=== PATIENT | female | born 1975 | race Caucasian/White ===

== ENCOUNTER 2022-11-07 08:30 | Outpatient (OUT) | payer OTHER, SELFPAY ==
[2022-11-07 09:17] LABS: Basophils Absolute Auto 0.1 10^3/uL (0.0-0.1); Basophils Percent Auto 0.8 % (0.2-2.0); Eosinophils Absolute Auto 0.1 10^3/uL (0.0-0.7); Eosinophils Percent Auto 0.9 % (0.9-7.0); Hematocrit 35.6 % (36.0-48.0); Hemoglobin 11.7 g/dL (12.0-16.0); Immature Granulocytes Abs Auto 0.02 10^3/uL (0.00-0.03); Immature Granulocytes Pct Auto 0.3 % (0.0-0.5); Lymphocytes Absolute Auto 1.9 10^3/uL (1.2-3.8); Lymphocytes Percent Auto 27.8 % (20.5-60.0); Mean Corpuscular HGB Conc 32.9 g/dL (29.9-35.2); Mean Corpuscular Hemoglobin 29.6 pg (26.7-34.0); Mean Corpuscular Volume 90.1 fL (81.0-99.0); Mean Platelet Volume 11.2 fL (9.5-13.5); Monocytes Absolute Auto 0.4 10^3/uL (0.3-0.8); Monocytes Percent Auto 6.2 % (1.7-12.0); Neutrophils Absolute Auto 4.3 10^3/uL (1.4-6.5); Platelet Count 326 10^3/uL (150-450); Red Blood Count 3.95 10^6/uL (4.20-5.40); Red Cell Distribution Width 13.1 % (11.0-15.0); White Blood Count 6.7 10^3/uL (4.0-11.0)
[2022-11-07 10:57] LABS: Alanine Aminotransferase 72 U/L (14-59); Albumin Globulin Ratio 0.9; Albumin Level 3.5 g/dL (3.4-5.0); Alkaline Phosphatase 92 U/L (46-116); Anion Gap 12.5; Aspartate Amino Transferase 44 U/L (15-37); BUN Creatinine Ratio 22.9; Bilirubin Total 0.3 mg/dL (0.2-1.0); Calcium 9.2 mg/dL (8.5-10.1); Carbon Dioxide 30.4 mmol/L (21.0-32.0); Chloride 99 mmol/L (98-107); Estimated GFR (African America >60 (>=60); Estimated GFR (Non-African Ame >60 (>=60); Globulin 4.1 g/dL; Glucose 93 mg/dL (74-106); Magnesium 1.9 mg/dL (1.8-2.4); Phosphorus 3.9 mg/dL (2.6-4.7); Potassium 3.9 mmol/L (3.5-5.1); Sodium 138 mmol/L (136-145); Total Protein 7.6 g/dL (6.4-8.2)
[2022-11-07 11:04] LABS: Percent Iron Saturation 14.3 %
[2022-11-11 20:11] LABS: Vitamin B1 (Thiamine), Blood 84.9 nmol/L (66.5-200.0)
== END 2022-11-07 08:31 ==
LOC: LAB 08:31
DX: Z98.84 Bariatric surgery status (principal); K90.9 Intestinal malabsorption, unspecified; R53.83 Other fatigue; D50.9 Iron deficiency anemia, unspecified
CPT/HCPCS: 36415; 80053; 82306; 82607; 82728; 82746; 83540; 83550; 83735; 84100; 84425; 85025

== ENCOUNTER 2022-12-11 15:49 | Outpatient (OUT) | payer OTHER, SELFPAY ==
--- NOTE | 2022-12-11 15:53 | MM_ITS ---
Patient: JASMIN CALVILLO Exam Date: 12/11/2022 : 1975 Gender:F Ordering : MRS. FRANTZ PANDA . Admission #: [id number] Family : Order #: [id number] CLICK HERE TO VIEW EXAM RADIOLOGY REPORT PROCEDURE: MM TOMOSYNTHESIS SCREENING BI COMPARISON: MG MAMM SCREEN 3D SRINATH CAD, 12/03/2021. MG MAMM SCREEN 3D SRINATH CAD, 11/20/2020. MG MAMM SRINATH DIAG FU, 11/18/2019. MG MAMM SRINATH SCRN W CAD DIG, 06/12/2015. INDICATIONS: Screening mammogram Z12.31 Calculator Name NCI Breast Cancer Risk Assessment Tool 5 Year Breast Cancer Risk 0.80% Lifetime Breast Cancer Risk 8.30% Personal Breast Cancer No Personal Ovarian Cancer No Treatments None Family Cancers Father with prostate cancer at age 51; Grandfather-maternal with colon cancer at age 68. LOCATION: [facility] BREAST COMPOSITION: Scattered areas fibroglandular density. FINDINGS: DIAGNOSTIC CATEGORY 1--NEGATIVE. RIGHT BREAST: No significant suspicious finding. No significant change has occurred. LEFT BREAST: No significant suspicious finding. No significant change has occurred. RECOMMENDATIONS: ROUTINE MAMMOGRAM AND CLINICAL EVALUATION IN 12 MONTHS. PLEASE NOTE: A NORMAL MAMMOGRAM DOES NOT EXCLUDE THE POSSIBILITY OF BREAST CANCER. A CLINICALLY SUSPICIOUS PALPABLE LUMP SHOULD BE BIOPSIED. Dictated by: Shay Cedeño M.D. on 12/12/2022 at 14:46 Approved by: Shay Cedeño M.D. on 12/12/2022 at 14:49
== END 2022-12-11 15:50 | disposition home or self-care (01) ==
LOC: MAMMO 15:49
PROVIDERS: PCP Nurse Practitioner; Visit Provider Nurse Practitioner
DX: Z12.31 Encounter for screening mammogram for malignant neoplasm of breast (principal); Z80.0 Family history of malignant neoplasm of digestive organs; Z80.8 Family history of malignant neoplasm of other organs or systems
CPT/HCPCS: 77063; 77067

== ENCOUNTER 2023-03-06 08:27 | Outpatient (OUT) | payer OTHER, SELFPAY ==
[2023-03-06 10:18] LABS: Basophils Absolute Auto 0.1 10^3/uL (0.0-0.1); Eosinophils Absolute Auto 0.2 10^3/uL (0.0-0.7); Eosinophils Percent Auto 2.5 % (0.9-7.0); Hematocrit 36.3 % (36.0-48.0); Hemoglobin 12.1 g/dL (12.0-16.0); Immature Granulocytes Abs Auto 0.01 10^3/uL (0.00-0.03); Immature Granulocytes Pct Auto 0.2 % (0.0-0.5); Lymphocytes Percent Auto 33.6 % (20.5-60.0); Mean Corpuscular HGB Conc 33.3 g/dL (29.9-35.2); Mean Corpuscular Hemoglobin 30.9 pg (26.7-34.0); Mean Corpuscular Volume 92.6 fL (81.0-99.0); Mean Platelet Volume 11.8 fL (9.5-13.5); Monocytes Absolute Auto 0.5 10^3/uL (0.3-0.8); Monocytes Percent Auto 8.4 % (1.7-12.0); Neutrophils Absolute Auto 3.2 10^3/uL (1.4-6.5); Neutrophils Percent Auto 54.3 % (43.0-75.0); Platelet Count 259 10^3/uL (150-450); Red Blood Count 3.92 10^6/uL (4.20-5.40); Red Cell Distribution Width 12.3 % (11.0-15.0)
[2023-03-06 10:51] LABS: Percent Iron Saturation 15.7 %
== END 2023-03-06 08:28 | disposition home or self-care (01) ==
PROVIDERS: PCP Nurse Practitioner
DX: Z98.84 Bariatric surgery status (principal); K90.9 Intestinal malabsorption, unspecified; D50.9 Iron deficiency anemia, unspecified; D64.9 Anemia, unspecified; R60.9 Edema, unspecified; M19.90 Unspecified osteoarthritis, unspecified site
CPT/HCPCS: 36415; 82728; 83540; 83550; 85025

== ENCOUNTER 2023-05-18 07:57 | Outpatient (OUT) | payer OTHER, SELFPAY ==
--- NOTE | 2023-05-18 | XR_ITS ---
The [address] [address] Patient Name: JASMIN CALVILLO MRN: [id number] date: 1975 Sex: F Assigned Patient Location: US Current Patient Location: US Accession/Order Number: [id number] Exam Date: 05/18/2023 08:20 Report Date: 05/18/2023 09:17 At the request of: MARCELINO STEVENS Procedure: XR abdomen 1V EXAM: XR abdomen 1V HISTORY: N20.0 Kidney stones COMPARISON: None. TECHNIQUE: AP view of the abdomen. FINDINGS: Nonobstructive bowel gas pattern is noted. There is a 5 mm calculus in the inferior pole of the right kidney. 1.0 cm calculus in the inferior pole of the left kidney. The osseous structures are intact. Multiple surgical clips presents over the left renal region. XR/XR abdomen 1V IMPRESSION: Nonobstructive bowel gas pattern. Bilateral nephrolithiasis. Electronically authenticated by: ANN-MARIE TUCKER Date: 05/18/2023 09:17
--- NOTE | 2023-05-18 | US_ITS ---
The [address] [address] Patient Name: JASMIN CALVILLO MRN: [id number] date: 1975 Sex: F Assigned Patient Location: Current Patient Location: US Accession/Order Number: [id number] Exam Date: 05/18/2023 08:03 Report Date: 05/18/2023 08:43 At the request of: MARCELINO STEVENS Procedure: US renal BI EXAM: Renal ultrasound HISTORY: . n20.0 kidney stones . COMPARISON: None. TECHNIQUE: Grayscale and color imaging was performed FINDINGS: Scanning of the right kidney demonstrates right kidney measured 10.3 x 5.6 x 5.6 cm. Color-flow is noted. No solid renal cortical masses or hydronephrosis is noted. There is a 7 mm nonobstructing calculus in the mid to lower pole of the right kidney. Left kidney measures 10 x 5.2 x 4.6 cm. Color-flow is noted. No solid renal cortical masses or hydronephrosis is noted. There is a 1.4 cm calculus in the left renal pelvis. No hydronephrosis is noted. Scanning of the bladder demonstrates the bladder to be incompletely distended with a volume of 33 cc. Grossly no masses are noted though evaluation is limited. US/US renal BI IMPRESSION: 1. 7 mm nonobstructing calculus involving the inferior pole of the right kidney. No hydronephrosis. 2. 1.4 cm calculus involving the renal pelvis of the left kidney. No hydronephrosis. 3. The bladder was incompletely distended this evaluation of the bladder was limited. Grossly no masses noted. Electronically authenticated by: THOMAS HARRIS Date: 05/18/2023 08:43
== END 2023-05-18 07:58 | disposition home or self-care (01) ==
LOC: US 07:57
PROVIDERS: PCP Nurse Practitioner; Visit Provider Urology
DX: N20.0 Calculus of kidney (principal)
CPT/HCPCS: 74018; 76775

== ENCOUNTER 2023-05-21 09:56 | Outpatient (OUT) | payer OTHER, SELFPAY ==
[2023-05-21 10:13] LABS: Basophils Absolute Auto 0.1 10^3/uL (0.0-0.1); Basophils Percent Auto 0.7 % (0.2-2.0); Eosinophils Absolute Auto 0.1 10^3/uL (0.0-0.7); Eosinophils Percent Auto 1.4 % (0.9-7.0); Hematocrit 38.7 % (36.0-48.0); Hemoglobin 12.6 g/dL (12.0-16.0); Immature Granulocytes Abs Auto 0.01 10^3/uL (0.00-0.03); Immature Granulocytes Pct Auto 0.1 % (0.0-0.5); Lymphocytes Absolute Auto 1.9 10^3/uL (1.2-3.8); Lymphocytes Percent Auto 23.2 % (20.5-60.0); Mean Corpuscular HGB Conc 32.6 g/dL (29.9-35.2); Mean Corpuscular Hemoglobin 30.4 pg (26.7-34.0); Mean Corpuscular Volume 93.5 fL (81.0-99.0); Mean Platelet Volume 10.9 fL (9.5-13.5); Monocytes Absolute Auto 0.4 10^3/uL (0.3-0.8); Neutrophils Absolute Auto 5.6 10^3/uL (1.4-6.5); Neutrophils Percent Auto 69.6 % (43.0-75.0); Platelet Count 282 10^3/uL (150-450); Red Blood Count 4.14 10^6/uL (4.20-5.40); Red Cell Distribution Width 12.1 % (11.0-15.0)
--- OUTSIDE RECORDS SUMMARY | 2023-05-21 10:39 | XMS_ITS | CCD ---
Author Name Unknown Address [address] [place] [address] Organization [facility] Care Team Providers Care Fuel Retrofitting Technician Name Role Phone LUDY LAINEZ Primary Care Physician ERICK KRAFT Consulting Unavailable LAINEZ ., DR LUDY French Primary Care Unavailable LUE ., ROMI M Attending Unavailable LUE ., ROMI M Admitting Unavailable LUE ., ROMI M Consulting Unavailable LUE ., ROMI M Consulting Unavailable LAINEZ ., DR LUDY French Primary Care Unavailable LUE ., ROMI M Attending Unavailable LUE ., ROMI M Admitting Unavailable MAIRA SCRUGGS Consulting Unavailable PETER II, SARAY Consulting Unavailable MISC, DR HDEZ Consulting Unavailable LAINEZ ., DR LUDY French Primary Care Unavailable MISC, DR HDEZ Attending Unavailable MISC, DR HDEZ Admitting Unavailable ZIEBTARUN, DR ETTA Hopkins Consulting Unavailable LAINEZ ., DR LUDY French Primary Care Unavailable LUE ., ROMI M Attending Unavailable LUE ., ROMI M Admitting Unavailable LUE ., ROMI M Consulting Unavailable YESSI, DR ETTA Hopkins Consulting Unavailable LAINEZ ., DR LUDY French Primary Care Unavailable LUE ., ROMI M Attending Unavailable LUE ., ROMI M Admitting Unavailable LUE ., ROMI M Consulting Unavailable ZIEBER, DR ETTA Hopkins Consulting Unavailable LAINEZ ., DR LUDY French Primary Care Unavailable LUE ., ROMI M Attending Unavailable LUE ., ROMI M Admitting Unavailable LUE ., ROMI M Consulting Unavailable LUE ., ROMI M Consulting Unavailable LAINEZ ., DR LUDY French Primary Care Unavailable LUE ., ROMI M Attending Unavailable LUE ., ROMI M Admitting Unavailable MAISHA ESTRADA Consulting Unavailable LUE ., ROMI M Consulting Unavailable LAINEZ ., DR LUDY French Primary Care Unavailable LUE ., ROMI Patel Attending Unavailable LUE ., ROMI Patel Admitting Unavailable LAINEZ ., DR LUDY French Consulting Unavailable LAINEZ ., DR LUDY French Primary Care Unavailable LAINEZ ., DR LUDY French Attending Unavailable LAINEZ ., DR LUDY French Admitting Unavailable ZIEBER, DR ETTA Hopkins Consulting Unavailable BRITTANY, MARY Consulting Unavailable LAINEZ ., DR LUDY French Primary Care Unavailable BRITTANY, MARY Attending Unavailable BRITTANY, MARY Admitting Unavailable PAY ., DR PUENTE Consulting Unavailable PAY ., DR PUENTE Attending Unavailable PAY ., DR PUENTE Admitting Unavailable LAINEZ ., DR LUDY French Primary Care Unavailable MAXIMILIANO TAYLOR Consulting Unavailable MEGHA RESENDIZ Consulting Unavailable IVETT THOMPSON Consulting Unavailable Radha Leo Primary Care Physician Romi Sarmiento Attending Unavailable Romi Sarmiento Attending Unavailable Romi Sarmiento Attending Unavailable Romi Sarmiento Attending Unavailable Felipa, DISASSEMBLER Radha L Admitting Unavailable Felipa, DISASSEMBLER Radha Ocampo Attending Unavailable Romi Sarmiento Attending Unavailable Romi Sarmiento Attending Unavailable Romi Sarmiento Attending Unavailable Felipa, DISASSEMBLER Radha Ocampo Attending Unavailable Unavailable Unavailable Unavailable Allergies Allergy Classification Reported Allergen(s) Allergy Type Date of Onset Reaction(s) Facility (1 source) No Known Medication Allergies; Translations: [No Known Medication Allergies] Propensity to adverse reactions (disorder) [facility] Repository Medications Current Medications Medication Drug Class(es) Dates Sig (Normalized) Sig (Original) acetaminophen 325 mg / oxyCODONE hydrochloride 5 mg oral tablet (1 source) Opioid Agonist Start: 03-22-2022 Percocet 325 mg-5 mg Tab See Instructions, 50 tab(s), Refill(s) 0, 1- 2 tab(s) Oral q4hr PRN post operative knee replacement pain. Duration 7 days, [id number], 165, cm, 02/26/22 12:16:00 EDT, Height/Length Dosing, 85.1, kg, 02/26/22 12:16:00 EDT, Weight Dosing Start Date: 03/22/22 Status: Ordered aspirin 325 mg oral tablet (1 source) Platelet Aggregation Inhibitor, Nonsteroidal Anti-inflammatory Drug Start: 03-22-2022 End: 04-21-2022 take 1 tablet by mouth once daily aspirin 325 mg Tab 325 mg = 1 tab(s), Oral, Daily, Start the day after knee surgery for blood clot prevention., X 30 day(s), # 30 tab(s), Refills(s) 0, Pharmacy: [facility] #[id number], 165, cm, 02/26/22 12:16:00 EDT, Height/Length Dosing, 85.1, kg, 02/26/22 12:16:... Start Date: 03/22/22 Stop Date: 04/21/22 Status: Ordered Bariatric Multivitamins with 45 mg Iron oral capsule (5 sources) Start: 02-26-2022 take 1 capsule by mouth once daily Bariatric Multivitamins with 45 mg Iron oral capsule 1 cap(s), Oral, Daily, Prophylaxis Start Date: 02/26/22 Status: Ordered cephalexin 500 mg oral capsule (1 source) Cephalosporin Antibacterial Start: 03-22-2022 End: 03-27-2022 take 1 capsule by mouth four times daily Keflex 500 mg Cap 500 mg = 1 cap(s), Oral, QID, Start the day after knee replacement surgery., X 5 day(s), # 20 cap(s), Refills(s) 0, Pharmacy: [facility] #[id number], 165, cm, 02/26/22 12:16:00 EDT, Height/Length Dosing, 85.1, kg, 02/26/22 12:16:00 EDT, Weight Do... Start Date: 03/22/22 Stop Date: 03/27/22 Status: Ordered docusate sodium 100 mg oral capsule (1 source) Start: 03-22-2022 take 1 capsule by mouth twice daily Colace 100 mg Cap 100 mg = 1 cap(s), Oral, BID, # 20 cap(s), Refills(s) 0, Pharmacy: [facility] #[id number], 165, cm, 02/26/22 12:16:00 EDT, Height/Length Dosing, 85.1, kg, 02/26/22 12:16:00 EDT, Weight Dosing Start Date: 03/22/22 Status: Ordered promethazine hydrochloride 25 mg oral tablet (5 sources) Phenothiazine Start: 03-22-2022 take 1 tablet by mouth every four hours as needed for nausea promethazine 25 mg Tab 25 mg = 1 tab(s), Oral, q4hr, PRN for nausea/vomiting, Post knee surgery nausea/vomiting, # 20 tab(s), Refills(s) 0, Pharmacy: [facility] #[id number], 165, cm, 02/26/22 12:16:00 EDT, Height/Length Dosing, 85.1, kg, 02/26/22 12:16:00 EDT, Weight D... Start Date: 03/22/22 Status: Ordered tamsulosin hydrochloride 0.4 mg oral capsule (2 sources) alpha-Adrenergic Chaya Start: 06-13-2022 take 1 capsule by mouth once daily Flomax 0.4 mg Cap 0.4 mg = 1 cap(s), Oral, Daily, # 30 cap(s), Refills(s) 1, Pharmacy: [facility] #[id number], 165, cm, 06/13/22 9:38:00 EST, Height/Length Dosing, 73.5, kg, 06/13/22 9:38:00 EST, Weight Dosing Start Date: 06/13/22 Status: Ordered Completed/Discontinued Medications Medication Drug Class(es) Dates Sig (Normalized) Sig (Original) Calcium Citrate (5 sources) Start: 02-26-2022 take 2 tablets by mouth twice daily calcium citrate Tab 500 mg, Oral, BID, 2 tabs twice a day, Prophylaxis Start Date: 02/26/22 Status: Ordered Problems Active Problems Problem Classification Problem Date Documented Da te Episodic/Chronic Acquired foot deformities (5 sources) Foot-drop 02-26-2022 Episodic Calculus of urinary tract (20 sources) Kidney stone; Translations: [Calculus of kidney] Onset: 06-13-2022 Episodic Essential hypertension (5 sources) Hypertensive disorder; Translations: [Essential (primary) hypertension] Onset: 08-06-2022 06-13-2022 Chronic Genitourinary symptoms and ill-defined conditions (4 sources) Microscopic hematuria; Translations: [Asymptomatic microscopic hematuria] Onset: 06-13-2022 Episodic Osteoarthritis (15 sources) Osteoarthritis of knee; Translations: [Unilateral primary osteoarthritis, right knee] Onset: 01-13-2022 Chronic Other aftercare (1 source) 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; Translations: [OTH RESIDENTIAL CURRENT DRUG THERAPY] Onset: 08-06-2022 Episodic Other connective tissue disease (1 source) Presence of right artificial knee joint; Translations: [PRESENCE RT ARTIFICIAL KNEE JOINT] Onset: 08-06-2022 Chronic Other diseases of kidney and ureters (4 sources) Hydronephrosis with renal and ureteral calculous obstruction; Translations: [HYDRONPHROS RENL AND URETRL CALCUL OBST] Onset: 07-30-2022 Episodic Other diseases of kidney and ureters (1 source) Unspecified hydronephrosis; Translations: [UNSPECIFIED HYDRONEPHROSIS] Onset: 07-02-2022 Episodic Other gastrointestinal disorders (5 sources) Intestinal malabsorption, unspecified; Translations: [INTESTINAL MALABSORPTION UNS] Onset: 01-14-2022 Chronic Other gastrointestinal disorders (1 source) Bariatric surgery status; Translations: [BARIATRIC SURGERY STATUS] Onset: 08-06-2022 Episodic Residual codes; unclassified (1 source) Other specified postprocedural states; Translations: [OTH SPECIFIED POSTPROCEDURAL STATES] Onset: 09-05-2022 Episodic Unclassified (4 sources) Asymptomatic microscopic hematuria 06-13-2022 Unclassified (1 source) Body mass index 20-24 - normal 10-24-2022 Unclassified (1 source) Non-smoker 10-24-2022 Past or Other Problems Problem Classification Problem Date Documented Da te Episodic/Chronic Abdominal pain (4 sources) Unspecified abdominal pain; Translations: [UNSPECIFIED ABDOMINAL PAIN] Onset: 05-27-2022 Episodic Other screening for suspected conditions (not mental disorders or infectious disease) (4 sources) Encounter for screening mammogram for malignant neoplasm of breast; Translations: [ENC SCR MAMMO MALIG NEOPLASM BREAST] Onset: 12-03-2021 Episodic Residual codes; unclassified (1 source) Edema, unspecified; Translations: [EDEMA UNSPECIFIED] Onset: 01-14-2022 Episodic Residual codes; unclassified (1 source) Family history of malignant neoplasm of digestive organs; Translations: [FAM HX MALIG NEOPLASM DIGESTIV ORGN] Onset: 12-06-2021 Episodic Residual codes; unclassified (1 source) Family history of malignant neoplasm of prostate; Translations: [FAMILY HX MALIG NEOPLASM PROSTATE] Onset: 12-06-2021 Episodic Results Test Name Value Interpretation Reference Range Facility Reminderson 05-19-2023 Reminders - From: Tanesha Rowley To: EU - Recalls Torsten; Sent: 12/03/2022 13:42:54 EDT Show up: 05/01/2023 13:42:00 EST Subject: OSCAR/KUB Reminder/Recall To be done @ [facility] prior to her 06/10/[address] Sarmiento Called pt Left VM to return our call about imaging. Pt called and she will be calling [facility] to schedule OSCAR and have KUB done on same day Called pt and left VM to see when she is scheduled for OSCAR/KUB Pt called and she is having OSCAR & KUB done @ [facility] on 05/18/2023 OSCAR in pt chart for upcoming appointment. [facility] RAD - Ultrasound Reporton RAD - Ultrasound Report [id number] F [facility] Outside Mammographyon 2022 Outside Mammography [id number]: 127 [facility] Outside Mammography [id number]: 127 [facility] Screenson 12-04-2022 Screens [id number] :127 [facility] Ambulatory Visit Summaryon 0 12-03-2022 Ambulatory Visit Summary JASMIN CALVILLO :1975 Visit Date:12/03/2022 Ambulatory Visit Instructions Your Diagnosis Ureteral stone Kidney stones Asymptomatic microscopic hematuria Tests Performed Urnls Dip Stick Auto w/o Microscopy POC 36498 US Renal -- Results Pending -- XR Abdomen 1 View -- Results Pending -- Please visit your patient portal for your results or contact your primary care physician. Your Care Team Attending Physician - Romi Sarmiento MD Primary Care Physician - Radha Farley This Is Your Medications List Contact prescribing physician if questions or concerns calcium citrate (calcium citrate Tab) multivitamin with minerals (Bariatric Multivitamins with 45 mg Iron oral capsule) promethazine (promethazine 25 mg Tab) Procedures Performed 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 Discharge Vitals Heart Rate (Peripheral) 72 Blood Pressure 127/76 Height 165 cm Height 65 in Weight 73.5 kg Weight 161.7 lb BMI 27 What to do next Scheduled Follow-Up Appointments Thursday 8:45 AM EST With: Romi Sarmiento MD Where: [facility] Patient Educationon 12-04-19 Patient Education Nephrology Dietary Guidelines to Help Prevent Kidney Stones Kidney stones are deposits of minerals and salts that form inside your kidneys. Your risk of developing kidney stones may be greater depending on your diet, your lifestyle, the medicines you take, and whether you have certain medical conditions. Most people can lower their chances of developing kidney stones by following the instructions below. Your dietitian may give you more specific instructions depending on your overall health and the type of kidney stones you tend to develop. What are tips for following this plan? Reading food labels ? Choose foods with no salt added or low-salt labels. Limit your salt (sodium) intake to less than 1,500 mg a day. ? Choose foods with calcium for each meal and snack. Try to eat about 300 mg of calcium at each meal. Foods that contain 200?500 mg of calcium a serving include: ? 8 oz (237 mL) of milk, rpbdtpl-cosxrwmlexwl-rfr ry milk, and calcium-fortifiedfruit juice. Calcium-fortified means that calcium has been added to these drinks. ? 8 oz (237 mL) of kefir, yogurt, and soy yogurt. ? 4 oz (114 g) of tofu. ? 1 oz (28 g) of cheese. ? 1 cup (150 g) of dried figs. ? 1 cup (91 g) of cooked broccoli. ? One 3 oz (85 g) can of sardines or mackerel. Most people need 1,000?1,500 mg of calcium a day. Talk to your dietitian about how much calcium is recommended for you. Shopping ? Buy plenty of fresh fruits and vegetables. Most people do not need to avoid fruits and vegetables, even if these foods contain nutrients that may contribute to kidney stones. ? When shopping for convenience foods, choose: ? Whole pieces of fruit. ? Pre-made salads with dressing on the side. ? Low-fat fruit and yogurt smoothies. ? Avoid buying frozen meals or prepared deli foods. These can be high in sodium. ? Look for foods with live cultures, such as yogurt and kefir. ? Choose high-fiber grains, such as whole-wheat breads, oat bran, and wheat cereals. Cooking ? Do not add salt to food when cooking. Place a salt shaker on the table and allow each person to add his or her own salt to taste. ? Use vegetable protein, such as beans, textured vegetable protein (TVP), or tofu, instead of meat in pasta, casseroles, and soups. Meal planning ? Eat less salt, if told by your dietitian. To do this: ? Avoid eating processed or pre-made food. ? Avoid eating fast food. ? Eat less animal protein, including cheese, meat, poultry, or fish, if told by your dietitian. To do this: ? Limit the number of times you have meat, poultry, fish, or cheese each week. Eat a diet free of meat at least 2 days a week. ? Eat only one serving each day of meat, poultry, fish, or seafood. ? When you prepare animal protein, cut pieces into small portion sizes. For most meat and fish, one serving is about the size of the palm of your hand. ? Eat at least five servings of fresh fruits and vegetables each day. To do this: ? Keep fruits and vegetables on hand for snacks. ? Eat one piece of fruit or a handful of berries with breakfast. ? Have a salad and fruit at lunch. ? Have two kinds of vegetables at dinner. ? Limit foods that are high in a substance called oxalate. These include: ? Spinach (cooked), rhubarb, beets, sweet potatoes, and Wallisian chard. ? Peanuts. ? Potato chips, lao fries, and baked potatoes with skin on. ? Nuts and nut products. ? Chocolate. ? If you regularly take a diuretic medicine, make sure to eat at least 1 or 2 servings of fruits or vegetables that are high in potassium each day. These include: ? Avocado. ? Banana. ? [place], prune, carrot, or tomato juice. ? Baked potato. ? Cabbage. ? Beans and split peas. Lifestyle ? Drink enough fluid to keep your urine pale yellow. This is the most important thing you can do. Spread your fluid intake throughout the day. ? If you drink alcohol: ? Limit how much you use to: ? 0?1 drink a day for women who are not . ? 0?2 drinks a day for men. ? Be aware of how much alcohol is in your drink. In the [place] one drink equals one 12 oz bottle of beer (355 mL), one 5 oz glass of wine (148 mL), or one 1? oz glass of hard liquor (44 mL). ? Lose weight if told by your health care provider. Work with your dietitian to find an eating plan and weight loss strategies that work best for you. General information ? Talk to your health care provider and dietitian about taking daily supplements. You may be told the following depending on your health and the cause of your kidney stones: ? Not to take supplements with vitamin C. ? To take a calcium supplement. ? To take a daily probiotic supplement. ? To take other supplements such as magnesium, fish oil, or vitamin B6. ? Take gojz-wju-zghqozo and prescription medicines only as told by your health care provider. These include supplements. What foods should I limit? Limit your in (more content not included)... [facility] Urology Office/Clinic Noteon 12-03-2022 Urology Office/Clinic Note Chief Complaint 8 wks w/ Litholink & uric acid HPI Staff 8wks with Litholink, PTH & Uric Acid DX: Ureteral & Kidney Stone & Microscopic Hematuria *Calcium Citrate Supplement recommended at time of last visit. Per last encounter, pt to follow up in 6m with OSCAR & KUB in 6m-no follow up scheduled at this time. Litholink 11/02/22 Uric Acid 09/04/22- 4.4 PTH 09/04/22- 16 Dysuria: denies pain and burning Incomplete bladder emptying: denies Hematuria: denies visible blood Frequency: denies Urgency: denies Nocturia: denies Stream: denies hesitancy Leaking: denies Post void dripping: denies Wearing pads/ Depends: denies Urge incontinence: denies Stress incontinence: denies Incontinence without Sensory Awareness: denies Abdominal pain: sometimes pain, mostly bloating Flank pain: denies Sexual complaints: denies History of Present Illness Tests reviewed: reviewed UA, 24hr Urine, Metabolic Work Up I have reviewed the previous health record information and history for this patient from Dr. Sarmiento. I have reviewed and verified the staff HPI to be accurate for this encounter. There have been no associated fever, chills, flank pain, or blood in the urine. Denies any urinary infections since last encounter. Review of Systems PHQ Score Initial Depression Screen Score: 0 ROS - Provider Constitutional: denies weight loss, denies hot flashes. Eyes: denies eye problems. Gastrointestinal: denies nausea, denies vomiting. Cardiovascular: denies chest pain or angina. Integumentary: no dryness Musculoskeletal: denies musculoskeletal symptoms. ENMT: denies otolaryngeal symptoms. Respiratory: no shortness of breath. Heme/Lymph: denies easy bleeding tendency, denies easy bruising tendency. Psychiatric: no confusion, no anxiety. Genitourinary: See HPI. Physical Exam Vitals & Measurements HR: 72(Peripheral) BP: 127/76 HT: 65 in HT: 165 cm WT: 73.5 kg WT: 161.7 lb BMI: 27 General Appearance: alert , no acute distress, well nourished, well developed female. Assessment/Plan 1. Ureteral stone (N20.1: Calculus of ureter) Presented to [facility] ER on 05/27/22 for low abdominal pain and diarrhea. CT AP with IV/PO contrast 05/27/22 - 5 mm right UPJ stone, 1 mm right UVJ stone, mild hydronephrosis and delayed nephrogram. 3 mm left UVJ stone without left hydronephrosis or ureter. Additional 2 to 3 mm nonobstructing renal calculi present. OSCAR 06/06/22 at [facility] - Right kidney: Dilated renal pelvis and calyces with 6 mm proximal ureteral stone. Nonobstructing 5 mm stone inferior pole. Left kidney: mildly dilated renal pelvis and calyces with a 7 mm UVJ stone. Nonobstructing 9 x 5 x 4 mm stone within inferior pole. Personal review: still with R hydro with proximal ureteral stone and L UVJ stone at UO visible. R UVJ stone not clearly seen. - Not visible on KUB 05/27/22 or 06/06/22. Not a candidate for ESWL. OSCAR 06/30/22 - personal review: mild R hydro improved, bilateral nonobstructing stones, largest measuring [address]. KUB neg CT AP w/o contrast 07/10/22 marked right hydroureteronephrosis and 6 x 5 x 4 mm distal ureteral stone, 6 cm from the UVJ S/p Cysto, Right ureteroscopy w/ laser litho, stone extraction, string stent placed. Stent removed at home without complications. Stone analysis 20% CaOx monohydrate, 80% CaOx dihydrate. Renal US 08/30/22 neg for hydro. -Proceeded with metabolic stone workup per #2 2. Kidney stones (N20.0: Calculus of kidney) Hx of gastric bypass surgery - risk factor for stones. Family hx - mother with stones. Pt has never had a UTI, is not diabetic. Ca 9.6 drawn 07/18/22. BMP wnl. LithoLink 24hr Urine Panel 11/02/22 - 1340mL of urine, mildly Ca 222, low citrate 384, high oxalate 59 Metabolic serum Workup 09/04/22 all wnl On review of CT AP 07/10/22- RLP 2 mm stone, LLP 3.5 mm stone in addition to ureteral stones above. Visible on renal US 06/06/22, not on KUB. Renal US 08/30/22 bilateral stones - tiny RLP stone, 3.5 mm left stone Reviewed 24hr litholink in detail with pt. Advised to drink a liter more of fluids and adding citrus to her everyday diet - 1/4 cup lemon juice. Advised pt to try Oat milk instead of Skim milk. -Counseled on dietary modifications for general stone prevention. -Will give pt an Oxalate list for education to avoid -Will get repeat imaging in 6 mos w/ OSCAR and KUB. All questions/concerns were discussed. Pt to call the office if she encounters any issues prior. Pt acknowledges understanding 3. Asymptomatic microscopic hematuria (R31.21: Asymptomatic microscopic hematuria) ICIQ-SF 0 UA today is negative for blood and infection. -Cont monitoring I spent 20 minutes today with the patient: reviewing tests in preparation to see and discuss them with the patient, obtaining and reviewing external separately obtained history, documenting clinical information in the electronic health records, and care coordination. Over half the time was spent performing a medical e (more content not included)... [facility] Comment on above: Result Comment: Elec tronically Signed By: Romi Sarmiento MD\.br\Date and Time Signed: 12/03/22 08:55 EDT\.br\Electronically Co-Signed By: Malathi Rivera\.br\Date and Time Co-Signed: 12/03/22 08:48 EDT [facility] 11-11-2022 Lab Reports [id number]: 127 [facility] PAP [id number] 11-05-2022 Cytology report Cyto stain Doc (Cvx/Vag) Note Invalid Interpretation Code [facility] Comment on above: Result Comment: TEST S RESULT FLAG UNITS REF RANGE LAB Clinician Provided Cytology Information Source.............[employer]ix No. of containers..01 ThinPrep Vial DIAGNOSIS: 01 NEGATIVE FOR INTRAEPITHELIAL LESION OR MALIGNANCY. FUNGAL ORGANISMS MORPHOLOGICALLY CONSISTENT WITH KILEY SPECIES ARE PRESENT. THIS SPECIMEN WAS RESCREENED PART OF OUR COSTUME SPECIALIST PROGRAM. Specimen adequacy: 01 Satisfactory for evaluation. Endocervical and/or squamous metaplastic cells (endocervical component) are present. Performed by: 02 Saman Lopez, Buckle Gluer (ASCP) QC reviewed by: 01 Nel Swift, Supervisory Buckle Gluer (ASCP) . 01 Note: Note 01 The Pap smear is a screening test designed to aid in the detection of premalignant and malignant conditions of the uterine cervix. It is not a diagnostic procedure and should not be used as the sole means of detecting cervical cancer. Both false-positive and false-negative reports do occur. Test Methodology: Note 01 This liquid based ThinPrep(R) pap test was screened with the use of an image guided system. HPV Genotype Reflex Note 01 Criteria not met, HPV Genotype not performed. FLAG LEGEND: L-Low Normal,H-High Normal,LL-Alert Low,HH-Alert High <-Panic Low,>-Panic High,A-Abnormal,AA-Critical Abnormal Performed at: 01 [email or web address] [place] [address] Catherine Pearson MD, 02 [facility]to [facility]o [address] [place] [id number] Alex Pascual MD, Performed By: #### 1 [id number] ####[address] [place] [address] HPV 16+18+31+33+35+39+4 5+51+52+56+58+59+66 +68 DNA Probe+sig amp Ql (Cvx) Negative Invalid Interpretation Code Negative [facility] Comment on above: Result Comment: This nucleic acid amplification test detects fourteen high-risk HPV types (16,18,31,33,35,39,45,51,52,56,58,59,66,68) without differentiation. Performed at: [facility] [address] [id number] MD Michel Alexander Performed at: =[facility], [place] [id number] MD Michel Alexander Performed By: #### 1 [id number] ####[facility] [address] [place] [address] Ambulatory Visit Summaryon 0 10-24-2022 Ambulatory Visit Summary JASMIN CALVILLO :1975 Visit Date:10/24/2022 Ambulatory Visit Instructions Your Diagnosis BMI 24.0-24.9, adult Non-smoker Your Care Team Attending Physician - Radha Farley Primary Care Physician - Radha Farley This Is Your Medications List calcium citrate (calcium citrate Tab) multivitamin with minerals (Bariatric Multivitamins with 45 mg Iron oral capsule) promethazine (promethazine 25 mg Tab) Procedures Performed 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 Discharge Vitals Heart Rate (Peripheral) 76 Blood Pressure 138/86 Height 165 cm Height 65 in Weight 66.1 kg Weight 145.42 lb BMI 24.28 What to do next Scheduled Follow-Up Appointments Thursday 8:30 AM EDT With: Torsten DIAMOND, Romi Sinclair Where: [facility] Family Medicine Office/Clini c Noteon 10-24-2022 Family Medicine Office/Clinic Note Chief Complaint Pap smear HPI Staff establish care, presents for annual pap Establish Care: History:rt foot drop, obesity Last provider: Shannon Any recent labs: 12/03/21 Acute: Current issues/complaints: none Woman check up: Last pap: [address] Neil Gooden Results of lap pap: Normal with an inconclusive area Where was it done:Dr. Neil Gooden hx: # of pregnancies.1.. abortions..0. live births.1.. living children..1. menstrual cycle (normal,heavy,ect):Irreg ular, had 2 this month. After got IUD out 7-8 yrs ago menstrual cycle has not been regular History of STD: HPV when 17 Do you want tested for STD today: No Vaginal discharge, odor, itching:no Self breast exam at home? yes Hx of breast, cervical or uterine cancer in the family: none. Review of Systems PHQ Score Initial Depression Screen Score: 0 Physical Exam Vitals & Measurements HR: 76(Peripheral) BP: 138/86 SpO2: 100% HT: 65 in HT: 165 cm WT: 66.1 kg WT: 145.42 lb BMI: 24.28 Assessment/Plan 1. Well woman exam with routine gynecological exam (Z01.419: Encounter for gynecological examination (general) (routine) without abnormal findings) Ordered: MA Mamm Screen w/CAD if perf and 3D Peng 2. Breast cancer screening (Z12.39: Encounter for other screening for malignant neoplasm of breast) Ordered: MA Mamm Screen w/CAD if perf and 3D Peng 3. Cervical cancer screening (Z12.4: Encounter for screening for malignant neoplasm of cervix) 4. BMI 24.0-24.9, adult (Z68.24: Body mass index [BMI] 24.0-24.9, adult) 5. Non-smoker (Z78.9: Other specified health status) Follow-up No qualifying data available Patient Education BMI for Adults Problem List/Past Medical History Ongoing Arthritis Asymptomatic microscopic hematuria BMI 24.0-24.9, adult Hypertension Kidney stones Non-smoker Ureteral stone Historical No qualifying data Procedure/Surgical History 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 Medications Bariatric Multivitamins with 45 mg Iron oral capsule, 1 cap(s), Oral, Daily calcium citrate Tab, 500 mg, Oral, BID promethazine 25 mg Tab, 25 mg= 1 tab(s), Oral, q4hr, PRN, Not taking Allergies No Known Medication Allergies Social History Alcohol - Denies Alcohol Use, 02/26/2022 Substance Abuse - Denies Substance Abuse, 02/26/2022 Tobacco - Denies Tobacco Use, 02/26/2022 Never (less than 100 in lifetime) Tobacco Use:. Never Smokeless Tobacco Use:. Household tobacco concerns: No., 10/24/2022 Family History Arthritis: Father. Hypertension: Father. Primary malignant neoplasm of prostate: Father. Immunizations Vaccine Date Status influenza virus vaccine, inactivated 04/28/2022 Recorded SARS-CoV-2 (COVID-19) [id number] 04/28/2022 Recorded SARS-CoV-2 (COVID-19) mRNA BNT-162b2 vax 05/21/2021 Recorded influenza virus vaccine, inactivated 03/08/2021 Recorded SARS-CoV-2 (COVID-19) mRNA BNT-162b2 vax 09/20/2020 Recorded SARS-CoV-2 (COVID-19) mRNA BNT-162b2 vax 08/30/2020 Recorded influenza virus vaccine, inactivated 02/08/2020 Recorded influenza virus vaccine, inactivated 02/15/2019 Recorded influenza virus vaccine, inactivated 01/29/2019 Recorded influenza virus vaccine, inactivated 03/06/2018 Recorded influenza virus vaccine, inactivated 02/26/2015 Recorded influenza virus vaccine, inactivated 02/25/2014 Recorded influenza virus vaccine, inactivated 04/24/2013 Recorded Normal [facility] Comment on above: Result Comment: Elec tronically Signed By: Radha Farley\.br\Date and Time Signed: 10/24/22 10:44 EDT Family Medicine Office/Clinic Note Chief Complaint Pap smear HPI Staff establish care, presents for annual pap Establish Care: History:rt foot drop, obesity Last provider: Shannon Any recent labs: 12/03/21 Acute: Current issues/complaints: none Woman check up: Last pap: [address] Neil Gooden Results of lap pap: Normal with an inconclusive area Where was it done:Dr. Neil Gooden hx: # of pregnancies.1.. abortions..0. live births.1.. living children..1. menstrual cycle (normal,heavy,ect):Irreg ular, had 2 this month. After got IUD out 7-8 yrs ago menstrual cycle has not been regular History of STD: HPV when 17 Do you want tested for STD today: No Vaginal discharge, odor, itching:no Self breast exam at home? yes Hx of breast, cervical or uterine cancer in the family: none. History of Present Illness pt presents today for annual well woman exam. pt denies needs. last pap was negative but insufficient cells. due for mammogram in Review of Systems PHQ Score Initial Depression Screen Score: 0 Constitutional: No fever, No chills, No sweats, No weakness. No Weight change; No fatigue. Skin: No rash, No lesions. ENMT: No ear pain, No sore throat, No congestion. Respiratory: No shortness of breath, No cough, No orthopnea, No wheezing. Cardiovascular: No chest pain, No palpitations, No peripheral edema. Gastrointestinal: No nausea, No vomiting, No diarrhea, No GI bleeding. Genitourinary: No dysuria, No hematuria, No discharge, No pain. Gynecology: No abnormal vaginal discharge, No vaginal itching/burning, No vaginal dryness, No painful periods, No abnormal bleeding, No pelvic pain, No painful intercourse, No hair loss/growth, No hot flashes Breast: No breast pain, No skin changes, No masses/lumps, No nipple discharge. Musculoskeletal: No back pain, No trauma. Neurological: No headache, No dizziness, No numbness, No weakness. Psychiatric: No sleeping problems, No irritability, No mood swings/depression. Heme/Lymph: No bleeding tendency, No bruising tendency, No petechiae, No swollen. Physical Exam Vitals & Measurements HR: 76(Peripheral) BP: 138/86 SpO2: 100% HT: 65 in HT: 165 cm WT: 66.1 kg WT: 145.42 lb BMI: 24.28 General: Well developed, well nourished, in no acute distress Neck: Neck supple. No masses or palpable cervical nodes. Trachea midline. Thyroid without nodules, masses, tenderness, or enlargement Breast: No mass, nodule, discharge, or erythema bilaterally, and no axillary lymphadenopathy Lungs: Normal respiratory effort and clear to auscultation Cardio: Regular rate and rhythm, normal S1 and S2, no murmur, no rub Abdomen: Soft, non-distended, non-tender, normal bowel sounds x4 Gyno: normal external genitalia. Urethra no discharge. Vagina normal without lesions, no vaginal discharge. Cervix normal, without lesions. Uterus normal. No adnexal masses. Pap obtained Neurologic: Grossly normal Skin: [place], moist, no tenting Lymph Nodes: No cervical adenopathy, nodes normal Mental Status: Alert and oriented x3. Normal mood and affect Assessment/Plan 1. Well woman exam with routine gynecological exam (Z01.419: Encounter for gynecological examination (general) (routine) without abnormal findings) pt presents today for well woman exam. is doing well. states her cycles are irregular and have been since she had IUD removed and had her tubes tied. she had gastric bypass surgery a year ago and is c/o some gassy/bloating discomfort. Pap obtained without difficulty, BSE discussed. Mammogram order provided to be done at [facility]. discussed pelvic u/s if gas/bloating pain continues. all questions answered. RTC 1 year Ordered: MA Mamm Screen w/CAD if perf and 3D Peng PAP w/ HPV and Genotype rflx 2. Breast cancer screening (Z12.39: Encounter for other screening for malignant neoplasm of breast) mammogram order provided to be done at [facility] Ordered: MA Mamm Screen w/CAD if perf and 3D Peng PAP w/ HPV and Genotype rflx 3. Cervical cancer screening (Z12.4: Encounter for screening for malignant neoplasm of cervix) cervical cancer screening complete Ordered: PAP w/ HPV and Genotype rflx 4. BMI 24.0-24.9, adult (Z68.24: Body mass index [BMI] 24.0-24.9, adult) BMI education complete Ordered: PAP w/ HPV and Genotype rflx 5. Non-smoker (Z78.9: Other specified health status) continue not smoking Ordered: PAP w/ HPV and Genotype rflx Follow-up No qualifying data available Patient Education BMI for Adults Problem List/Past Medical History Ongoing Arthritis Asymptomatic microscopic hematuria BMI 24.0-24.9, adult Hypertension Kidney stones Non-smoker Ureteral stone Historical No qualifying data Procedure/Surgical History 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 Medications Bariatric Multivitamins with 45 mg Iron or (more content not included)... Normal [facility] Comment on above: Result Comment: Elec tronically Signed By: Radha Farley\.jens\Date and Time Signed: 10/24/22 10:43 EDT Family Medicine Office/Clinic Note Chief Complaint Pap smear HPI Staff establish care, presents for annual pap Establish Care: History:rt foot drop, obesity Last provider: Shannon Any recent labs: 12/03/21 Acute: Current issues/complaints: none Woman check up: Last pap: [address] Neil Gooden Results of lap pap: Normal with an inconclusive area Where was it done:Dr. Neil Gooden hx: # of pregnancies.1.. abortions..0. live births.1.. living children..1. menstrual cycle (normal,heavy,ect):Albert santiago, had 2 this month. After got IUD out 7-8 yrs ago menstrual cycle has not been regular History of STD: HPV when 17 Do you want tested for STD today: No Vaginal discharge, odor, itching:no Self breast exam at home? yes Hx of breast, cervical or uterine cancer in the family: none. Review of Systems PHQ Score Initial Depression Screen Score: 0 Physical Exam Vitals & Measurements HR: 76(Peripheral) BP: 138/86 SpO2: 100% HT: 65 in HT: 165 cm WT: 66.1 kg WT: 145.42 lb BMI: 24.28 Assessment/Plan 1. Well woman exam with routine gynecological exam (Z01.419: Encounter for gynecological examination (general) (routine) without abnormal findings) Ordered: MA Mamm Screen w/CAD if perf and 3D Peng PAP w/ HPV and Genotype rflx 2. Breast cancer screening (Z12.39: Encounter for other screening for malignant neoplasm of breast) Ordered: MA Mamm Screen w/CAD if perf and 3D Peng PAP w/ HPV and Genotype rflx 3. Cervical cancer screening (Z12.4: Encounter for screening for malignant neoplasm of cervix) Ordered: PAP w/ HPV and Genotype rflx 4. BMI 24.0-24.9, adult (Z68.24: Body mass index [BMI] 24.0-24.9, adult) Ordered: PAP [id number] w/ HPV and Genotype rflx 5. Non-smoker (Z78.9: Other specified health status) Ordered: PAP [id number] w/ HPV and Genotype rflx Follow-up No qualifying data available Patient Education BMI for Adults Problem List/Past Medical History Ongoing Arthritis Asymptomatic microscopic hematuria BMI 24.0-24.9, adult Hypertension Kidney stones Non-smoker Ureteral stone Historical No qualifying data Procedure/Surgical History 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 Medications Bariatric Multivitamins with 45 mg Iron oral capsule, 1 cap(s), Oral, Daily calcium citrate Tab, 500 mg, Oral, BID promethazine 25 mg Tab, 25 mg= 1 tab(s), Oral, q4hr, PRN, Not taking Allergies No Known Medication Allergies Social History Alcohol - Denies Alcohol Use, 02/26/2022 Substance Abuse - Denies Substance Abuse, 02/26/2022 Tobacco - Denies Tobacco Use, 02/26/2022 Never (less than 100 in lifetime) Tobacco Use:. Never Smokeless Tobacco Use:. Household tobacco concerns: No., 10/24/2022 Family History Arthritis: Father. Hypertension: Father. Primary malignant neoplasm of prostate: Father. Immunizations Vaccine Date Status influenza virus vaccine, inactivated 04/28/2022 Recorded SARS-CoV-2 (COVID-19) [id number] 04/28/2022 Recorded SARS-CoV-2 (COVID-19) mRNA BNT-162b2 vax 05/21/2021 Recorded influenza virus vaccine, inactivated 03/08/2021 Recorded SARS-CoV-2 (COVID-19) mRNA BNT-162b2 vax 09/20/2020 Recorded SARS-CoV-2 (COVID-19) mRNA BNT-162b2 vax 08/30/2020 Recorded influenza virus vaccine, inactivated 02/08/2020 Recorded influenza virus vaccine, inactivated 02/15/2019 Recorded influenza virus vaccine, inactivated 01/29/2019 Recorded influenza virus vaccine, inactivated 03/06/2018 Recorded influenza virus vaccine, inactivated 02/26/2015 Recorded influenza virus vaccine, inactivated 02/25/2014 Recorded influenza virus vaccine, inactivated 04/24/2013 Recorded Normal [facility] Comment on above: Result Comment: Elec tronically Signed By: Radha Farley\.br\Date and Time Signed: 10/24/22 10:42 EDT PAP [id number] 10-24-2022 Gynecological Body Site ENDOCERVIX Normal [facility] Comment on above: Performed By: #### 1 [id number] ####[facility] [address] [place] [address] Patient Educationon 10-25-19 23 Patient Education Nutrition BMI for Adults What is BMI? Body mass index (BMI) is a number that is calculated from a person's weight and height. BMI can help estimate how much of a person's weight is composed of fat. BMI does not measure body fat directly. Rather, it is an alternative to procedures that directly measure body fat, which can be difficult and expensive. BMI can help identify people who may be at higher risk for certain medical problems. What are BMI measurements used for? BMI is used as a screening tool to identify possible weight problems. It helps determine whether a person is obese, overweight, a healthy weight, or underweight. BMI is useful for: ? Identifying a weight problem that may be related to a medical condition or may increase the risk for medical problems. ? Promoting changes, such as changes in diet and exercise, to help reach a healthy weight. BMI screening can be repeated to see if these changes are working. How is BMI calculated? BMI involves measuring your weight in relation to your height. Both height and weight are measured, and the BMI is calculated from those numbers. This can be done either in [place] or metric measurements. Note that charts and online BMI calculators are available to help you find your BMI quickly and easily without having to do these calculations yourself. To calculate your BMI in [place] measurements: 1. Measure your weight in pounds (lb). 2. Multiply the number of pounds by 703. ? For example, for a person who weighs 180 lb, multiply that number by 703, which equals 126,540. 3. Measure your height in inches. Then multiply that number by itself to get a measurement called inches squared. ? For example, for a person who is 70 inches tall, the inches squared measurement is 70 inches x 70 inches, which equals 4,900 inches squared. 4. Divide the total from step 2 (number of lb x 703) by the total from step 3 (inches squared): 126,540 ? 4,900 = 25.8. This is your BMI. To calculate your BMI in metric measurements: 1. Measure your weight in kilograms (kg). 2. Measure your height in meters (m). Then multiply that number by itself to get a measurement called meters squared. ? For example, for a person who is 1.75 m tall, the meters squared measurement is 1.75 m x 1.75 m, which is equal to 3.1 meters squared. 3. Divide the number of kilograms (your weight) by the meters squared number. In this example: 70 ? 3.1 = 22.6. This is your BMI. What do the results mean? BMI charts are used to identify whether you are underweight, normal weight, overweight, or obese. The following guidelines will be used: ? Underweight: BMI less than 18.5. ? Normal weight: BMI between 18.5 and 24.9. ? Overweight: BMI between 25 and 29.9. ? Obese: BMI of 30 or above. Keep these notes in mind: ? Weight includes both fat and muscle, so someone with a muscular build, such as an athlete, may have a BMI that is higher than 24.9. In cases like these, BMI is not an accurate measure of body fat. ? To determine if excess body fat is the cause of a BMI of 25 or higher, further assessments may need to be done by a health care provider. ? BMI is usually interpreted in the same way for men and women. Where to find more information For more information about BMI, including tools to quickly calculate your BMI, go to these websites: ? Centers for Disease Control and Prevention: www.cdc.gov ? [place] Heart Association: www.heart.org ? National Heart, Lung, and Blood [place]: www.nhlbi.nih.gov Summary ? Body mass index (BMI) is a number that is calculated from a person's weight and height. ? BMI may help estimate how much of a person's weight is composed of fat. BMI can help identify those who may be at higher risk for certain medical problems. ? BMI can be measured using Somali measurements or metric measurements. ? BMI charts are used to identify whether you are underweight, normal weight, overweight, or obese. This information is not intended to replace advice given to you by your health care provider. Make sure you discuss any questions you have with your health care provider. Document Revised: 02/08/2020 Document Reviewed: 12/16/2019 [employer] Patient Education ? 2022 [employer] [facility] Formson 10-16-2022 Forms [id number]: 127 [facility] Lab Reportson 09-17-2022 Lab Reports [id number]: 127 Normal [facility] Lab Reports [id number]: 127 Normal [facility] RAD - Ultrasound Reporton RAD - Ultrasound Report [id number]: 127 Normal [facility] PTH INTACTon 09-05-2022 PTH, Intact 16 pg/mL Normal 15-65 [facility] Comment on above: Performed By: #### E TAWANDA ACEVEDO #### [facility] [address] [address] [address] Sandra Castano Ambulatory Visit Summaryon 0 09-04-2022 Ambulatory Visit Summary JASMIN CALVILLO :1975 Visit Date:09/04/2022 Ambulatory Visit Instructions Your Diagnosis Ureteral stone Kidney stones Asymptomatic microscopic hematuria Tests Performed Urnls Dip Stick Auto w/o Microscopy POC 13703 Your Care Team Attending Physician - Romi Sarmiento MD Primary Care Physician - SHANNON DIAMOND, LUDY French This Is Your Medications List Contact prescribing physician if questions or concerns calcium citrate (calcium citrate Tab) multivitamin with minerals (Bariatric Multivitamins with 45 mg Iron oral capsule) promethazine (promethazine 25 mg Tab) [Image Removed: STOP]Stop taking these medications tamsulosin (Flomax 0.4 mg Cap) Procedures Performed History of knee surgery (1992), Extraction of wisdom tooth, Gastric bypass operation, H/O: tubal ligation, Hand tendon operation. Discharge Vitals Heart Rate (Peripheral) 57 Respiratory Rate 16 Blood Pressure 138/82 Height 165 cm Height 65 in Weight 73.5 kg Weight 161.7 lb BMI 27 What to do next Scheduled Follow-Up Appointments Thursday 3:30 PM EDT With: Romi Sarmiento MD Where: [facility] Patient Educationon 09-05-19 23 Patient Education Urology Kidney Stones Kidney stones are rock-like masses that form inside of the kidneys. Kidneys are organs that make pee (urine). A kidney stone may move into other parts of the urinary tract, including: ? The tubes that connect the kidneys to the bladder (ureters). ? The bladder. ? The tube that carries urine out of the body (urethra). Kidney stones can cause very bad pain and can block the flow of pee. The stone usually leaves your body (passes) through your pee. You may need to have a doctor take out the stone. What are the causes? Kidney stones may be caused by: ? A condition in which certain glands make too much parathyroid hormone (primary hyperparathyroidism). ? A buildup of a type of crystals in the bladder made of a chemical called uric acid. The body makes uric acid when you eat certain foods. ? Narrowing (stricture) of one or both of the ureters. ? A kidney blockage that you were born with. ? Past surgery on the kidney or the ureters, such as gastric bypass surgery. What increases the risk? You are more likely to develop this condition if: ? You have had a kidney stone in the past. ? You have a family history of kidney stones. ? You do not drink enough water. ? You eat a diet that is high in protein, salt (sodium), or sugar. ? You are overweight or very overweight (obese). What are the signs or symptoms? Symptoms of a kidney stone may include: ? Pain in the side of the belly, right below the ribs (flank pain). Pain usually spreads (radiates) to the groin. ? Needing to pee often or right away (urgently). ? Pain when going pee (urinating). ? Blood in your pee (hematuria). ? Feeling like you may vomit (nauseous). ? Vomiting. ? Fever and chills. How is this treated? Treatment depends on the size, location, and makeup of the kidney stones. The stones will often pass out of the body through peeing. You may need to: ? Drink more fluid to help pass the stone. In some cases, you may be given fluids through an IV tube put into one of your veins at the hospital. ? Take medicine for pain. ? Make changes in your diet to help keep kidney stones from coming back. Sometimes, medical procedures are needed to remove a kidney stone. This may involve: ? A procedure to break up kidney stones using a beam of light (laser) or shock waves. ? Surgery to remove the kidney stones. Follow these instructions at home: Medicines ? Take aazx-wsn-fynugaf and prescription medicines only as told by your doctor. ? Ask your doctor if the medicine prescribed to you requires you to avoid driving or using heavy machinery. Eating and drinking ? Drink enough fluid to keep your pee pale yellow. You may be told to drink at least 8?10 glasses of water each day. This will help you pass the stone. ? If told by your doctor, change your diet. This may include: ? Limiting how much salt you eat. ? Eating more fruits and vegetables. ? Limiting how much meat, poultry, fish, and eggs you eat. ? Follow instructions from your doctor about eating or drinking restrictions. General instructions ? Collect pee samples as told by your doctor. You may need to collect a pee sample: ? 24 hours after a stone comes out. ? 8?12 weeks after a stone comes out, and every 6?12 months after that. ? Strain your pee every time you pee (urinate), for as long as told. Use the strainer that your doctor recommends. ? Do not throw out the stone. Keep it so that it can be tested by your doctor. ? Keep all follow-up visits as told by your doctor. This is important. You may need follow-up tests. How is this prevented? To prevent another kidney stone: ? Drink enough fluid to keep your pee pale yellow. This is the best way to prevent kidney stones. ? Eat healthy foods. ? Avoid certain foods as told by your doctor. You may be told to eat less protein. ? Stay at a healthy weight. Where to find more information ? National [facility] (NKF): www.kidney.org ? [facility] ([facility]): www.urologyhealth.org Contact a doctor if: ? You have pain that gets worse or does not get better with medicine. Get help right away if: ? You have a fever or chills. ? You get very bad pain. ? You get new pain in your belly (abdomen). ? You pass out (faint). ? You cannot pee. Summary ? Kidney stones are rock-like masses that form inside of the kidneys. ? Kidney stones can cause very bad pain and can block the flow of pee. ? The stones will often pass out of the body through peeing. ? Drink enough fluid to keep your pee pale yellow. This information is not intended to replace advice given to you by your health care provider. Make sure you discuss any questions you have with your health care provider. Document Released: 11/03/2008 Document Revised: 10/04/2019 Document Reviewed: 10/04/2019 [employer] Patient Education ? 2019 [employer] Normal [facility] URIC ACID SERUMon 09-04-2022 Urate [Mass/Vol] 4.4 mg/dL Normal 2.6-6.0 [facility] Comment on above: Performed By: #### L IPA, CMP #### [facility] [address] [address] [address] Sandra Castano Urology Office/Clinic Noteon 09-04-2022 Urology Office/Clinic Note Chief Complaint 6 week with Renal US HPI Staff 46 year old female here for 6 week follow up with renal US Previous Dx: Ureteral stone, Kidney stone, micro hematuria. Patient is S/P cysto, right retrograde, right ureteroscopy with deepti litho/stone extraction, string stent placement, right renoscopy with laser litho of kidney stones 07/30/22. Renal US done 08/30/22 Dysuria:no Incomplete bladder emptying: no Hematuria:no Frequency:no Urgency:no Nocturia:maybe 1x Stream:good stream Leaking:no Post void dripping:no Wearing pads/ Depends:no Urge incontinence:no Stress incontinence:no Incontinence without Sensory Awareness:no Abdominal pain:Pt. states having some gas discomfort Flank pain:no History of Present Illness Tests reviewed: Reviewed UA and renal US. I have reviewed the previous health record information and history for this patient from Dr. Sarmiento. I have reviewed and verified the staff HPI to be accurate for this encounter. There have been no associated fever, chills, flank pain, or blood in the urine. Denies any urinary infections since last encounter. Review of Systems PHQ Score Initial Depression Screen Score: 0 ROS - Provider Constitutional: denies weight loss, denies hot flashes. Eyes: denies eye problems. Gastrointestinal: denies nausea, denies vomiting. Cardiovascular: denies chest pain or angina. Integumentary: no dryness Musculoskeletal: denies musculoskeletal symptoms. ENMT: denies otolaryngeal symptoms. Respiratory: no shortness of breath. Heme/Lymph: denies easy bleeding tendency, denies easy bruising tendency. Psychiatric: no confusion, no anxiety. Genitourinary: See HPI. Physical Exam Vitals & Measurements HR: 57(Peripheral) RR: 16 BP: 138/82 HT: 65 in HT: 165 cm WT: 73.5 kg WT: 161.7 lb BMI: 27 General Appearance: alert , no acute distress, well nourished, well developed female. Genitourinary: bladder nonpalpable, no flank pain. Assessment/Plan 46 yo female with history of gastric bypass surgery who initially presented with bilateral kidney and ureteral stones. 1. Ureteral stone (N20.1: Calculus of ureter) Presented to [facility] on 05/27/22 for low abdominal pain and diarrhea. CT AP with IV/PO contrast 05/27/22 - 5 mm right UPJ stone, 1 mm right UVJ stone, mild hydronephrosis and delayed nephrogram. 3 mm left UVJ stone without left hydronephrosis or ureter. Additional 2 to 3 mm nonobstructing renal calculi present. OSCAR 06/06/22 at [facility] - Right kidney: Dilated renal pelvis and calyces with 6 mm proximal ureteral stone. Nonobstructing 5 mm stone inferior pole. Left kidney: mildly dilated renal pelvis and calyces with a 7 mm UVJ stone. Nonobstructing 9 x 5 x 4 mm stone within inferior pole. Personal review: still with R hydro with proximal ureteral stone and L UVJ stone at UO visible. R UVJ stone not clearly seen. - Not visible on KUB 05/27/22 or 06/06/22. Not a candidate for ESWL. OSCAR 06/30/22 - personal review: mild R hydro improved, bilateral nonobstructing stones, largest measuring 5 [address]. KUB neg CT AP w/o contrast 07/10/22 marked right hydroureteronephrosis and 6 x 5 x 4 mm distal ureteral stone, 6 cm from the UVJ S/p Cysto, Right ureteroscopy w/ laser litho, stone extraction, string stent placed. Stent removed at home without complications. Stone analysis 20% CaOx monohydrate, 80% CaOx dihydrate. Renal US 08/30/22 neg for hydro. Ca 9.6 drawn 07/18/22. BMP wnl. -Counseled on dietary modifications for general stone prevention -Advised patient to take calcium citrate supplement w/ food -Proceed with metabolic workup with 24 hr urine litholink and serum PTH, Uric acid -Follow up within 6-8 weeks to review results All questions/concerns were discussed. Pt. to call the office if sheencounters any issues prior. Pt. acknowledges understanding. 2. Kidney stones (N20.0: Calculus of kidney) Hx of gastric bypass surgery - risk factor for stones. Family hx - mother with stones. Pt has never had a UTI, is not diabetic. On review of CT AP 07/10/22- RLP 2 mm stone, LLP 3.5 mm stone in addition to ureteral stones above. Visible on renal US 06/06/22, not on KUB. Renal US 08/30/22 bilateral stones - tiny RLP stone, 3.5 mm left stone -Cont monitoring, f/u renal US and KUB in 6 months -Metabolic stone workup as above 3. Asymptomatic microscopic hematuria (R31.21: Asymptomatic microscopic hematuria) During stone events. s/p stone treatment and UA neg today. Cont routine screening Follow-up With When Contact Information Romi Sarmiento MD, URL, URO Additional Instructions: 6-8 weeks w/ met w/up Patient Education Kidney Stones, Gttc-mi-Vueu IShaye, personally scribed for Dr. Sarmiento on 09/04/2022 09:32:07. . Documentation recorded by the scribe, Lydia Jones, accurately reflects the services(s) I performed and decisions made by me. Authenticated by Dr. Sarmiento on 09/04/2022 18:14:0 (more content not included)... Normal [facility] Comment on above: Result Comment: Elec tronically Signed By: Romi Sarmiento MD\.br\Date and Time Signed: 09/04/22 18:14 EDT\.br\Electronically Co-Signed By: Shaye Jones\.br\Date and Time Co-Signed: 09/04/22 09:32 EDT\.br\Electronically Co-Signed By: Shaye Jones.jens\Date and Time Co-Signed: 09/04/22 11:09 EDT US KIDNEYSon 08-31-2022 US KIDNEYS US KIDNEYS EXAM DATE: 08/30/2022 7:55 AM MDT COMPARISON: Ultrasound kidney is 06/30/2022, 06/06/2022; CT abdomen and pelvis 07/10/2022. INDICATION: Kidney stones. History of stone and stent removal. TECHNIQUE: Real-time ultrasound scanning of the kidneys and bladder was performed by the hide inspector and sorter. Debone Processing Supervisor static images are submitted for review. FINDINGS: Right Kidney: The right kidney measures 11 x 5.5 x 3.5 cm and has a volume of 110 mL. Normal echogenicity. No hydronephrosis. Inferior pole echogenic focus measuring 0.3 x 0.4 x 0.2 cm is associated with twinkle artifact. Right superior pole echogenic focus measures 0.2 x 0.2 x 0.2 cm, also with associated twinkle artifact. No obvious contour deforming solid renal mass. Renal cortex measures 1.4 cm. Left Kidney: The left kidney measures 10.9 x 5.3 x 5 cm and has a volume of 151 mL. Normal echogenicity. No hydronephrosis. Multiple echogenic foci with associated twinkle artifact measure 0.6 x 0.7 x 0.5 cm, 0.3 x 0.1 x 0.2 cm and 0.3 x 0.3 x 0.2 cm respectively. No obvious contour deforming solid renal mass. Renal cortex measures 1.8 cm. Bladder: Bladder is not fully distended, limiting evaluation. Bladder volume measures 29 mL. No focal or diffuse bladder wall thickening noted. Ureteral jets do not appear to have been interrogated on this study. IMPRESSION: 1. No hydronephrosis. 2. Bilateral nonobstructive renal calculi. Electronically authenticated by: MAISHA ESTRADA Date: 2022-08-31 13:15 Normal [facility] CALCULI, URINARYon 3 2,8 Dihydroxyadenine Normal [facility] Comment on above: Performed By: #### C ALCULI #### [facility] [address] [place] [address] Dr. Sandra Castano Ammonium Acid Urate Normal [facility] Comment on above: Performed By: #### C ALCULI #### [facility] [address] [address] [address] Sandra Castano Bilirubin Ql (U) Normal [facility] Comment on above: Performed By: #### C ALCULI #### [facility] [address] [address] [address] Sandra Castano Ca Oxalate Dihydrate 80 % Normal [facility] Comment on above: Performed By: #### C ALCULI #### [facility] [address] [address] [address] Sandra Castano CaHPO4 (Brushite) [facility] Comment on above: Performed By: #### C ALCULI #### [facility] [address] [address] [address] Sandra Castano Calcium Bilirubinate Normal [facility] Comment on above: Performed By: #### C ALCULI #### [facility] [address] [address] [address] Sandra Castano Calcium Carbonate Normal [facility] Comment on above: Performed By: #### C ALCULI #### [facility] [address] [address] [address] Snadra Castano Calcium Oxalate Monohydrate 20 % [facility] Comment on above: Performed By: #### C ALCULI #### [facility] [address] [address] [address] Sandra Castano Calcium Palmitate Normal [facility] Comment on above: Performed By: #### C ALCULI #### [facility] [address] [address] [address] Sandra aCstano Calcium Phosphate [facility] Comment on above: Performed By: #### C ALCULI #### [facility] [address] [address] [address] Sandra Castano Calcium Stearate Normal [facility] Comment on above: Performed By: #### C ALCULI #### [facility] [address] [address] [address] Sandra Castano Carbonate Apatite Normal [facility] Comment on above: Performed By: #### C ALCULI #### [facility] [address] [address] [address] Sandra Castano Cellular Material [facility] Comment on above: Performed By: #### C ALCULI #### [facility] [address] [place] [address] Dr. Sandra Castano Cholesterol [facility] Comment on above: Performed By: #### C ALCULI #### [facility] [address] [address] [address] Sandra Castano Color (U) Hahn [facility] Comment on above: Performed By: #### C ALCULI #### [facility] [address] [address] [address] Sandra Castano Comment [facility] Comment on above: Performed By: #### C ALCULI #### [facility] [address] [place] [address] Dr. Sandra Castano Comment Comment [facility] Comment on above: Result Comment: Calc ulus received wet. Wet calculi must be dried before analysis, which delays reporting of results. Leaving calculi wet (such as water, saline, blood, urine) may lead to changes in composition. Performed By: #### C ALCULI #### [facility] [address] [place] [address] Dr. Sandra Castano Comment: Comment Normal [facility] Comment on above: Result Comment: Phys blake questions regarding Calculi Analysis contact [facility] at: [phone]. Performed By: #### C ALCULI #### [facility] [address] [place] [address] Dr. Sandra Castano Composition Comment [facility] Comment on above: Result Comment: Perc entage (Represents the % composition) Performed By: #### C ALCULI #### [facility] [address] [place] [address] Dr. Sandra Castano Cystine [facility] Comment on above: Performed By: #### C ALCULI #### [facility] [address] [place] [address] Dr. Sandra Castano Disclaimer: Comment Normal [facility] Comment on above: Result Comment: This test was developed and its performance characteristics determined by [facility]. It has not been cleared or approved by the Food and Drug Administration. Performed By: #### C ALCULI #### [facility] [address] [place] [address] Dr. Sandra Castano Dried Blood Normal [facility] Comment on above: Performed By: #### C ALCULI #### [facility] [address] [place] [address] Dr. Sandra Castano Drug or Metabolite Normal [facility] Comment on above: Performed By: #### C ALCULI #### [facility] [address] [place] [address] Dr. Sandra Castano Hydroxyapatite Normal [facility] Comment on above: Performed By: #### C ALCULI #### [facility] [address] [place] [address] Dr. Snadra Castano Mg NH4 PO4 (Struvite) [facility] Comment on above: Performed By: #### C ALCULI #### [facility] [address] [place] [address] Dr. Sandra Castano MgHPO4 (Newberyite) Normal [facility] Comment on above: Performed By: #### C ALCULI #### [facility] [address] [place] [address] Dr. Sandra Castano Other component(s) Normal [facility] Comment on above: Performed By: #### C ALCULI #### [facility] [address] [place] [address] Dr. Sandra Castano PDF . Normal [facility] Comment on above: Performed By: #### C ALCULI #### [facility] [address] [place] [address] Dr. Sandra Castano Photo Comment [facility] Comment on above: Result Comment: Phot ograph will follow under a separate cover Performed By: #### C ALCULI #### [facility] [address] [place] [address] Dr. Sandra Castano Please note: Comment Normal [facility] Comment on above: Result Comment: Calc chica report will follow via computer, mail or services host delivery. Performed By: #### C ALCULI #### [facility] [address] [address] [address] Sandra Castano Size 2x1 Normal [facility] Comment on above: Result Comment: Mult iple pieces received. Dimensions of the largest piece reported. Performed By: #### C ALCULI #### [facility] [address] [address] [address] Sandra Catsano Sodium Acid Urate [facility] Comment on above: Performed By: #### C ALCULI #### [facility] [address] [address] [address] Sandra Castano Source Comment [facility] Comment on above: Result Comment: Righ t Ureter Performed By: #### C ALCULI #### [facility] [address] [place] [address] Dr. Sandra Castano Triamterene [facility] Comment on above: Performed By: #### C ALCULI #### [facility] [address] [place] [address] Dr. Sandra Castano Uric Acid [facility] Comment on above: Performed By: #### C ALCULI #### [facility] [address] [place] [address] Dr. Sandra Castano Uric Acid Dihydrate Normal [facility] Comment on above: Performed By: #### C ALCULI #### [facility] [address] [place] [address] Dr. Sandra Castano Weight [address] [facility] Comment on above: Performed By: #### C ALCULI #### [facility] [address] [place] [address] Dr. Sandra Castano Xanthine [facility] Comment on above: Performed By: #### C ALCULI #### [facility] [address] [place] [address] Dr. Sandra Castano Operative Reporton Operative Report [id number]: 127 Normal [facility] Lab Reportson 07-30-2022 Lab Reports [id number]: 127 Normal [facility] PREG HCG QUALon 07-30-2022 , QUAL Negative Normal NEGATIVE [facility] Comment on above: Performed By: #### C ALCULI #### [facility] [address] [address] [address] Sandra Castano Lab Reportson 07-22-2022 Lab Reports [id number]: 127 Normal [facility] PROF CHEM 8 (BAS METB)on Anion gap [Moles/Vol] 12.7 mmol/L Normal [facility] Comment on above: Performed By: #### C ALCULI #### [facility] [address] [place] [address] Dr. Sandra Castano Calcium [Mass/Vol] 9.6 mg/dL Normal 8.5-10.1 [facility] Comment on above: Performed By: #### C ALCULI #### [facility] [address] [address] [address] Sandra Castano Chloride [Moles/Vol] 101 mmol/L Normal 98-107 [facility] Comment on above: Performed By: #### C ALCULI #### [facility] [address] [address] [address] Sandra Castano CO2 [Moles/Vol] 30.4 mmol/L Normal 21.0-32.0 [facility] Comment on above: Performed By: #### C ALCULI #### [facility] [address] [address] [address] Sandra Castano Creatinine [Mass/Vol] 0.65 mg/dL Normal 0.55-1.02 [facility] Comment on above: Performed By: #### C ALCULI #### [facility] [address] [address] [address] Sandra Castano EGFR-AF PUERTO RICAN >60 Normal >=60 [facility] Comment on above: Performed By: #### C ALCULI #### [facility] [address] [address] [address] Sandra Castano EGFR-NON AF PUERTO RICAN >60 Normal >=60 [facility] Comment on above: Performed By: #### C ALCULI #### [facility] [address] [address] [address] Sandra Castano Glucose [Mass/Vol] 121 mg/dL Critically high 74-106 [facility] Comment on above: Performed By: #### C ALCULI #### [facility] [address] [address] [address] Sandra Castano Potassium [Moles/Vol] 4.1 mmol/L Normal 3.5-5.1 [facility] Comment on above: Performed By: #### C ALCULI #### [facility] [address] [address] [address] Sandra Castano Sodium [Moles/Vol] 140 mmol/L Normal 136-145 [facility] Comment on above: Performed By: #### C ALCULI #### [facility] [address] [address] [address] Sandra Castano Urea nitrogen [Mass/Vol] 17.0 mg/dL Normal 7.0-18.0 [facility] Comment on above: Performed By: #### C ALCULI #### [facility] [address] [address] [address] Sandra Castano Urea nitrogen/Creatinine [Mass ratio] 26.2 mg/mg Normal [facility] Comment on above: Performed By: #### C ALCULI #### [facility] [address] [address] [address] Sandra Castano PROTIMEon 07-18-2022 INR Coag (PPP) [Relative time] 0.97 {INR} Normal [facility] Comment on above: Performed By: #### L IPA, CMP #### [facility] [address] [address] [address] Sandra Castano INR GUIDELINES SEE BELOW Normal [facility] Comment on above: Result Comment: DUNIA RED INR: 2.0 - 3.0 CONDITIONS NOT LISTED BELOW 2.5 - 3.5 FOR PROSTHETIC HEART VALVE REPLACEMENT 2.5 - 3.5 RECURRENT THROMBOSIS Performed By: #### L IPA, CMP #### [facility] [address] [address] [address] Sandra Castano PT Coag (PPP) [Time] 10.3 s Normal 9.0-11.6 [facility] Comment on above: Performed By: #### L IPA, CMP #### [facility] [address] [address] [address] Sandra Castano PTTon 07-18-2022 aPTT Coag (Bld) [Time] 29.1 s Normal 22.3-36.2 [facility] Comment on above: Performed By: #### L IPA, CMP #### [facility] [address] [place] [address] Dr. Sandra Castano RAD - CT Reporton 07-11-2022 RAD - CT Report [id number]: [address] [facility] [address] ABD/PELVIS WO CONon 07-10 CT ABD/PELVIS WO CON EXAMINATION: CT ABD/PELVIS WO CON HISTORY: Ureteric stone COMPARISON: CT abdomen pelvis 05/27/2022, ultrasound kidneys 06/30/2022 TECHNIQUE: Axial, Coronal, and Sagittal images were obtained without and/or with IV contrast as indicated by examination type. Dose reduction techniques were achieved by using automated exposure control and/or adjustment of mA and/or kV according to patient size and/or use of iterative reconstruction technique. FINDINGS: LUNG BASES: No visible pulmonary or pleural disease. LIVER: No enlargement, atrophy, suspicious density, or significant focal lesion. BILIARY: No dilatation or calcification. PANCREAS: No lesion, fluid collection, or abnormal duct dilatation. SPLEEN: No enlargement or focal lesion. ADRENALS: No mass or enlargement. KIDNEYS: Marked dilation of right renal calyces, pelvis, and ureter secondary to an obstructing 6 x 5 x 4 mm stone within distal ureter 6 cm from the ureterovesical junction. A few small nonobstructing stones within the kidneys. BOWEL/MESENTERY: Prior gastric bypass surgery. No appreciable No visible mass, obstruction, or bowel wall thickening. AORTA/VASCULAR: No aneurysm or dissection. RETROPERITONEUM: No mass or adenopathy. LYMPH NODES: No adenopathy. URINARY BLADDER: No visible focal wall thickening, lesion, or calculus. PELVIC ORGANS: Bilateral fallopian tube clips. No visible mass. Pelvic organs appropriate for patient age. ABDOMINAL WALL: No mass or hernia. BONES: No bony lesion or fracture. OTHER: Negative. IMPRESSION: 1.Marked right hydronephrosis and hydroureter secondary to an obstructing6 x 5 x 4 mm stone within the distal ureter, 6 cm from the ureterovesical junction. 2. Bilateral nonobstructing nephrolithiasis. 3. Prior gastric bypass surgery. No obstruction or suspicious findings. Electronically authenticated by: ETTA CEDEÑO Date: 2022-07-10 13:31 Normal [facility] Patient Educationon 07-02-19 Patient Education Urology Dietary Guidelines to Help Prevent Kidney Stones Kidney stones are deposits of minerals and salts that form inside your kidneys. Your risk of developing kidney stones may be greater depending on your diet, your lifestyle, the medicines you take, and whether you have certain medical conditions. Most people can reduce their chances of developing kidney stones by following the instructions below. Depending on your overall health and the type of kidney stones you tend to develop, your dietitian may give you more specific instructions. What are tips for following this plan? Reading food labels ? Choose foods with no salt added or low-salt labels. Limit your sodium intake to less than 1500 mg per day. ? Choose foods with calcium for each meal and snack. Try to eat about 300 mg of calcium at each meal. Foods that contain 200?500 mg of calcium per serving include: ? 8 oz (237 ml) of milk, fortified nondairy milk, and fortified fruit juice. ? 8 oz (237 ml) of kefir, yogurt, and soy yogurt. ? 4 oz (118 ml) of tofu. ? 1 oz of cheese. ? 1 cup (300 g) of dried figs. ? 1 cup (91 g) of cooked broccoli. ? 1?3 oz can of sardines or mackerel. ? Most people need 1000 to 1500 mg of calcium each day. Talk to your dietitian about how much calcium is recommended for you. Shopping ? Buy plenty of fresh fruits and vegetables. Most people do not need to avoid fruits and vegetables, even if they contain nutrients that may contribute to kidney stones. ? When shopping for convenience foods, choose: ? Whole pieces of fruit. ? Premade salads with dressing on the side. ? Low-fat fruit and yogurt smoothies. ? Avoid buying frozen meals or prepared deli foods. ? Look for foods with live cultures, such as yogurt and kefir. Cooking ? Do not add salt to food when cooking. Place a salt shaker on the table and allow each person to add his or her own salt to taste. ? Use vegetable protein, such as beans, textured vegetable protein (TVP), or tofu instead of meat in pasta, casseroles, and soups. Meal planning ? Eat less salt, if told by your dietitian. To do this: ? Avoid eating processed or premade food. ? Avoid eating fast food. ? Eat less animal protein, including cheese, meat, poultry, or fish, if told by your dietitian. To do this: ? Limit the number of times you have meat, poultry, fish, or cheese each week. Eat a diet free of meat at least 2 days a week. ? Eat only one serving each day of meat, poultry, fish, or seafood. ? When you prepare animal protein, cut pieces into small portion sizes. For most meat and fish, one serving is about the size of one deck of cards. ? Eat at least 5 servings of fresh fruits and vegetables each day. To do this: ? Keep fruits and vegetables on hand for snacks. ? Eat 1 piece of fruit or a handful of berries with breakfast. ? Have a salad and fruit at lunch. ? Have two kinds of vegetables at dinner. ? Limit foods that are high in a substance called oxalate. These include: ? Spinach. ? Rhubarb. ? Beets. ? Potato chips and lao fries. ? Nuts. ? If you regularly take a diuretic medicine, make sure to eat at least 1?2 fruits or vegetables high in potassium each day. These include: ? Avocado. ? Banana. ? [place], prune, carrot, or tomato juice. ? Baked potato. ? Cabbage. ? Beans and split peas. General instructions ? Drink enough fluid to keep your urine clear or pale yellow. This is the most important thing you can do. ? Talk to your health care provider and dietitian about taking daily supplements. Depending on your health and the cause of your kidney stones, you may be advised: ? Not to take supplements with vitamin C. ? To take a calcium supplement. ? To take a daily probiotic supplement. ? To take other supplements such as magnesium, fish oil, or vitamin B6. ? Take all medicines and supplements as told by your health care provider. ? Limit alcohol intake to no more than 1 drink a day for non women and 2 drinks a day for men. One drink equals 12 oz of beer, 5 oz of wine, or 1? oz of hard liquor. ? Lose weight if told by your health care provider. Work with your dietitian to find strategies and an eating plan that works best for you. What foods are not recommended? Limit your intake of the following foods, or as told by your dietitian. Talk to your dietitian about specific foods you should avoid based on the type of kidney stones and your overall health. Grains Breads. Bagels. Rolls. Baked goods. Salted crackers. Cereal. Pasta. Vegetables Spinach. Rhubarb. Beets. Canned vegetables. Pickles. Olives. Meats and other protein foods Nuts. Nut butters. Large portions of meat, poultry, or fish. Salted or cured meats. Deli meats. Hot dogs. Sausages. Dairy Cheese. Beverages Regular soft drinks. Regular vegetable juice. Seasonings and other foods Seasoning blends with salt. Salad dr (more content not included)... [facility] 07-02-2022 Screens [id number]: 127 [facility] Urology Office/Clinic Noteon 07-02-2022 Urology Office/Clinic Note Chief Complaint 3m OSCAR HPI Staff 3wk US due to Kidney Stone, Ureteral Stone and Microscopic Hematuria. US done 06/06/22 @ [facility] *Tamsulosin 0.4mg QD therapy. Denies pain. Good flow. Did have pink color to urine, small clots in strainer last Mon/Tues. Has since then subsided. Has not passed stone that she has noticed. History of Present Illness Tests reviewed: reviewed UA, OSCAR. I have reviewed the previous health record information and history for this patient from Dr. Sarmiento. I have reviewed and verified the staff HPI to be accurate for this encounter. There have been no associated fever, chills, flank pain Denies any urinary infections since last encounter. Review of Systems PHQ Score Initial Depression Screen Score: 0 ROS - Provider Constitutional: denies weight loss, denies hot flashes. Eyes: denies eye problems. Gastrointestinal: denies nausea, denies vomiting. Cardiovascular: denies chest pain or angina. Integumentary: no dryness Musculoskeletal: denies musculoskeletal symptoms. ENMT: denies otolaryngeal symptoms. Respiratory: no shortness of breath. Heme/Lymph: denies easy bleeding tendency, denies easy bruising tendency. Psychiatric: no confusion, no anxiety. Genitourinary: See HPI. Physical Exam Vitals & Measurements HR: 68(Peripheral) RR: 16 BP: 124/78 HT: 65 in HT: 165 cm WT: 73.5 kg WT: 161.7 lb BMI: 27 General Appearance: alert , no acute distress, well nourished, well developed female. Genitourinary: bladder nonpalpable, no flank pain. Assessment/Plan 1. Ureteral stone (N20.1: Calculus of ureter) - Pt presented to [facility] on 05/27/22 for low abdominal pain and diarrhea. - CT AP with IV/PO contrast 05/27/22 - 5 mm calculus at the right UPJ, 1 mm calculus at the right UVJ, mild hydronephrosis and delayed nephrogram. 3 mm left UVJ stone without left hydronephrosis or ureter. Additional 2 to 3 mm nonobstructing renal calculi present. - OSCAR done 06/06/22 at [facility] - Right kidney: Dilated renal pelvis and calyces with 6 mm stone within proximal ureter. Nonobstructing 5 mm stone within inferior pole of kidney. Left kidney: mildly dilated renal pelvis and calyces with a 7 mm stone in distal ureter at the UVJ. Nonobstructing 9 x 5 x 4 mm stone within inferior pole. Personal review: still with R hydro with proximal ureteral stone and L UVJ stone at UO visible. R UVJ stone not clearly seen. - Not visible on KUB 05/27/22 or 06/06/22. Stones not present on x-ray, not a candidate for ESWL. - Urine culture done 05/27/22 is mixed nitish. Labs wnl. - OSCAR done 06/30/22 - personal review: mild R hydro improved, bilateral nonobstructing stones, largest measuring 5 mm bilaterally. KUB neg Pt cont Tamsulosin 0.4 mg QD therapy. Denies pain. Good flow. Did have pink color to urine, small clots in strainer last Mon/Tues. Has since then subsided. Has not passed stone that she has noticed. PE: no pain/discomfort on either side. Denies urgency, frequency. Explained findings from OSCAR, hydro improved but still present on R stones bilaterally. Options include: repeat CT scan wo con to re-evaluate ureteral stones vs ureteroscopy with risks of anesthesia and unnecessary surgery if stones passed. Risks and benefits of each discussed. Explained risks of leaving obstructing stone including renal failure. -CT AP wo con to assess if there are any remaining stones, will call pt with results -If ureteral stones still present, will call to schedule cystoscopy, right vs bilateral ureteroscopy, laser lithotripsy/basket extraction, with stent placement (leave on string). The procedural risks, benefits, details, and treatment alternatives have been discussed with the patient. These include bleeding, infection, inability to break or retrieve all of the stone, injury to the ureter (the tube which connects the kidney to the bladder), injury to the kidney scarring of the ureter, and need for repeat procedures, among others. Full informed consent has been obtained. Will order General anesthesia. -high fluid intake, with lemon 2. Kidney stones (N20.0: Calculus of kidney) On review of CT AP - RLP 2 mm stone, LLP 3.5 mm stone in addition to ureteral stones above. Visible on renal US 06/06/22, not on KUB. Hx of gastric bypass surgery - risk factor for stones. Family hx - mother with stones. Pt has never had a UTI, is not diabetic. -Proceed with met workup in future after acute event for stone prevention 3. Asymptomatic microscopic hematuria (R31.21: Asymptomatic microscopic hematuria) UA today shows trace-intact blood and at prior OV showed small blood. Expected in setting of stones. Low risk per AUA. -Repeat UA in future after stones treated to ensure resolution Follow-up With When Contact Information Torsten DIAMOND, Romi Sinclair, URL, URO Additional Instructions: schedule laser litho Patient Education Dietary Guidelines to Help Prevent Kidney Stones I, Delmy Lai, personally scribed for Dr. Sarmiento on 07/02/2022 10:27:00. Electronically signed (more content not included)... [facility] Comment on above: Result Comment: Elec tronically Signed By: Torsten DIAMOND, Romi Sinclair\.br\Date and Time Signed: 07/02/22 10:32 EST Urology Phone Visit- Telehea lthon 07-02-2022 Urology Office/Clinic Note Chief Complaint Kidney stones HPI Staff New Pt is here today due to kidney stones. CT scan done 05/27/22 shows mild right hydronephrosis and delayed nephrogram. Urine culture done 05/27/22 is negative. Dysuria: denies pain and burning Incomplete bladder emptying: denies Hematuria: denies, UA today shows SMALL Frequency: 5-6x a day Urgency: denies Nocturia: once a night Stream: denies hesitancy, strong stream Leaking: denies Post void dripping: denies Wearing pads/ Depends: denies Urge incontinence: denies Stress incontinence: denies Incontinence without Sensory Awareness: denies Abdominal pain: denies Flank pain: denies Sexual complaints: denies History of Present Illness Tests reviewed: reviewed UA, external ER records- labs, CT report and images, notes. OSCAR DE JESUS. I have reviewed the previous health record information and history for this patient. I have reviewed and verified the staff HPI to be accurate for this encounter. There have been no associated fever, chills, flank pain, or blood in the urine. Denies any urinary infections since last encounter. Review of Systems PHQ Score Initial Depression Screen Score: 0 ROS - Provider Constitutional: denies weight loss, denies hot flashes. Eyes: denies eye problems. Gastrointestinal: denies nausea, denies vomiting. Cardiovascular: denies chest pain or angina. Integumentary: no dryness Musculoskeletal: denies musculoskeletal symptoms. ENMT: denies otolaryngeal symptoms. Respiratory: no shortness of breath. Heme/Lymph: denies easy bleeding tendency, denies easy bruising tendency. Psychiatric: no confusion, no anxiety. Genitourinary: See HPI. Physical Exam Vitals & Measurements HT: 65 in HT: 165 cm WT: 73.5 kg WT: 161.7 lb BMI: 27 General Appearance: alert , no acute distress, well nourished, well developed female. Head: normocephalic . Eyes: normal orbit and globe. ENMT: normal examination of external ears. Chest: symmetric chest rise, respirations non labored . Cardiovascular: regular rate and rhythm. Abdomen: soft, non distended, no tenderness Genitourinary: bladder nonpalpable, no flank tenderness Skin: warm, dry, no bruising. Psychiatric: cooperative, affect appropriate for age, normal judgement, euthymic mood. Assessment/Plan ICIQ-SF 0. 1. Ureteral stone (N20.1: Calculus of ureter) New Pt is here today due to BL ureteral and kidney stones, presented to [facility] on 05/27/22 for low abdominal pain and diarrhea. Pain started about [address] AP with IV/PO contrast 05/27/22 - 5 mm calculus at the right UPJ, 1 mm calculus at the right UVJ, mild hydronephrosis and delayed nephrogram. 3 mm left UVJ stone without left hydronephrosis or ureter. Additional 2 to 3 mm nonobstructing renal calculi present. Urine culture done 05/27/22 is mixed nitish Labs wnl Not visible on KUB 05/27/22 or 06/06/22 Renal US 06/06/22 still with R hydro with proximal ureteral stone and L UVJ stone at UO visible. R UVJ stone not clearly seen. No further pain since just prior to renal US. None on exam today. Has not seen any stones pass. Discussed management options including medical expulsive therapy x 4-6 week vs intervention including extracorporeal shockwave lithotripsy vs ureteroscopy with laser lithotripsy/stone basket extraction possible stent. Risks/benefits of each were discussed including but not limited to: MET- renal damage, pain or infection; ESWL- bleeding, hematoma, pain, infection, inability to break up the stone, ureteral obstruction, cardiac arrhythmias, damage to surrounding structures and need for additional procedures; ureteroscopy - bleeding, pain, infection, damage to surrounding structures, ureteral perforation, stricture, inability to treat the stone and need for additional procedures. If a stent is placed, pt understands this is not permanent and needs to be removed or exchanged within 3 months to prevent encrustation, infection, permanent renal damage and need for more invasive procedures. Stones not present on x-ray, not a candidate for ESWL. -Pt elected to proceed with continued MET -Strain urine, hydration, tamsulosin refilled. Risks/benefits discussed -Follow up in 3 weeks with renal US. Likely proceed with BL URS if failed MET 2. Kidney stones (N20.0: Calculus of kidney) On review of CT AP- RLP 2mm stone, LLP 3.5 mm stone in addition to ureteral stones above. Visible on renal US 06/06/22, not on KUB Hx of gastric bypass surgery - risk factor for stones. Family hx - mother with stones Pt has never had a UTI, is not diabetic. Stones not present on x-ray, not a candidate for ESWL. -Proceed with met workup in future after acute event for stone prevention. Pt understands and agrees with plan. Ordered: US Renal XR Abdomen 1 View 3. Asymptomatic microscopic hematuria (R31.21: Asymptomatic microscopic hematuria) UA today shows small blood, trace protein, trace leuks. Expected in setting of stones. Low risk p (more content not included)... [facility] Comment on above: Result Comment: Elec tronically Signed By: Torsten DIAMOND, Romi Sinclair\.br\Date and Time Signed: 07/02/22 10:11 EST US KIDNEYSon 06-30-2022 US KIDNEYS EXAMINATION: US NICHOLE WALKER HISTORY: Kidney stone , hematuria COMPARISON: Ultrasound kidneys 06/06/2022 TECHNIQUE: Ultrasound examination was performed of the kidneys and urinary bladder. FINDINGS: RIGHT KIDNEY: Contains several nonobstructing stones, largest is 5 mm. Mild dilation of the calyces and renal pelvis. Carotid Doppler demonstrates blood flow within the kidney. Kidney: 9.7 x 5.7 x 5.4 cm LEFT KIDNEY: Contain several nonobstructing stones, largest is 5 mm. Color Doppler demonstrates blood flow within the kidney. Kidney: 11.7 x 5.7 x 5.9 cm BLADDER: No visible wall thickening, mass, or calculi. IMPRESSION: 1. Bilateral nonobstructing nephrolithiasis. 2. Minimal right hydronephrosis of uncertain etiology; improved. Electronically authenticated by: ETTA CEDEÑO Date: 2022-06-30 16:31 Normal [facility] XR KUB 1 VIEWon 06-30-2022 XR KUB 1 VIEW EXAMINATION: XR KUB 1 VIEW HISTORY: Kidney stone COMPARISON: XR KUB 06/06/2022 FINDINGS: KIDNEY/URETER - RIGHT: A few small stones projecting over kidney. KIDNEY/URETER - LEFT: A few small stones projecting over kidney. PELVIS: No appreciable ureteral stones. Stable pelvic calcifications favor phleboliths. Bilateral fallopian tube occlusive devices. BOWEL: No abnormal bowel dilation. Surgical clips and bowel sutures within left upper quadrant. BONES: No acute abnormality. OTHER: Negative. No abnormal gaseous collections. IMPRESSION: 1. Bilateral nephrolithiasis, best seen on today's ultrasound study of the kidneys and a CT abdomen pelvis 05/27/2022 study. Electronically authenticated by: ETTA CEDEÑO Date: 2022-06-30 17:20 Normal [facility] ED Note-Physicianon 06-18-19 23 ED Note-Physician [id number]: 127 [facility] Lab Reportson 06-18-2022 Lab Reports [id number]: 127 [facility] RAD - CT Reporton 06-18-2022 RAD - CT Report [id number]: 127 [facility] RAD - CT Report [id number]: 127 [facility] Formson 06-16-2022 Forms [id number]: 127 [facility] 06-16-2022 Screens [id number]: 127 [facility] Urology Phone Visit- Telehea lthon 06-14-2022 Urology Phone Visit- Telehealth Chief Complaint Kidney stones HPI Staff New Pt is here today due to kidney stones. CT scan done 05/27/22 shows mild right hydronephrosis and delayed nephrogram. Urine culture done 05/27/22 is negative. Dysuria: denies pain and burning Incomplete bladder emptying: denies Hematuria: denies, UA today shows SMALL Frequency: 5-6x a day Urgency: denies Nocturia: once a night Stream: denies hesitancy, strong stream Leaking: denies Post void dripping: denies Wearing pads/ Depends: denies Urge incontinence: denies Stress incontinence: denies Incontinence without Sensory Awareness: denies Abdominal pain: denies Flank pain: denies Sexual complaints: denies History of Present Illness Tests reviewed: reviewed UA, external ER records- labs, CT report and images, notes. KUB, OSCAR. I have reviewed the previous health record information and history for this patient. I have reviewed and verified the staff HPI to be accurate for this encounter. There have been no associated fever, chills, flank pain, or blood in the urine. Denies any urinary infections since last encounter. Review of Systems PHQ Score Initial Depression Screen Score: 0 ROS - Provider Constitutional: denies weight loss, denies hot flashes. Eyes: denies eye problems. Gastrointestinal: denies nausea, denies vomiting. Cardiovascular: denies chest pain or angina. Integumentary: no dryness Musculoskeletal: denies musculoskeletal symptoms. ENMT: denies otolaryngeal symptoms. Respiratory: no shortness of breath. Heme/Lymph: denies easy bleeding tendency, denies easy bruising tendency. Psychiatric: no confusion, no anxiety. Genitourinary: See HPI. Physical Exam Vitals & Measurements HT: 65 in HT: 165 cm WT: 73.5 kg WT: 161.7 lb BMI: 27 General Appearance: alert , no acute distress, well nourished, well developed female. Head: normocephalic . Eyes: normal orbit and globe. ENMT: normal examination of external ears. Chest: symmetric chest rise, respirations non labored . Cardiovascular: regular rate and rhythm. Abdomen: soft, non distended, no tenderness Genitourinary: bladder nonpalpable, no flank tenderness Skin: warm, dry, no bruising. Psychiatric: cooperative, affect appropriate for age, normal judgement, euthymic mood. Assessment/Plan ICIQ-SF 0. 1. Ureteral stone (N20.1: Calculus of ureter) New Pt is here today due to BL ureteral and kidney stones, presented to [facility] on 05/27/22 for low abdominal pain and diarrhea. Pain started about [address] AP with IV/PO contrast 05/27/22 - 5 mm calculus at the right UPJ, 1 mm calculus at the right UVJ, mild hydronephrosis and delayed nephrogram. 3 mm left UVJ stone without left hydronephrosis or ureter. Additional 2 to 3 mm nonobstructing renal calculi present. Urine culture done 05/27/22 is mixed nitish Labs wnl Not visible on KUB 05/27/22 or 06/06/22 Renal US 06/06/22 still with R hydro with proximal ureteral stone and L UVJ stone at UO visible. R UVJ stone not clearly seen. No further pain since just prior to renal US. None on exam today. Has not seen any stones pass. Discussed management options including medical expulsive therapy x 4-6 week vs intervention including extracorporeal shockwave lithotripsy vs ureteroscopy with laser lithotripsy/stone basket extraction possible stent. Risks/benefits of each were discussed including but not limited to: MET- renal damage, pain or infection; ESWL- bleeding, hematoma, pain, infection, inability to break up the stone, ureteral obstruction, cardiac arrhythmias, damage to surrounding structures and need for additional procedures; ureteroscopy - bleeding, pain, infection, damage to surrounding structures, ureteral perforation, stricture, inability to treat the stone and need for additional procedures. If a stent is placed, pt understands this is not permanent and needs to be removed or exchanged within 3 months to prevent encrustation, infection, permanent renal damage and need for more invasive procedures. Stones not present on x-ray, not a candidate for ESWL. -Pt elected to proceed with continued MET -Strain urine, hydration, tamsulosin refilled. Risks/benefits discussed -Follow up in 3 weeks with renal US. Likely proceed with BL URS if failed MET 2. Kidney stones (N20.0: Calculus of kidney) On review of CT AP- RLP 2mm stone, LLP 3.5 mm stone in addition to ureteral stones above. Visible on renal US 06/06/22, not on KUB Hx of gastric bypass surgery - risk factor for stones. Family hx - mother with stones Pt has never had a UTI, is not diabetic. Stones not present on x-ray, not a candidate for ESWL. -Proceed with met workup in future after acute event for stone prevention. Pt understands and agrees with plan. Ordered: US Renal XR Abdomen 1 View 3. Asymptomatic microscopic hematuria (R31.21: Asymptomatic microscopic hematuria) UA today shows small blood, trace protein, trace leuks. Expected in setting of stones. Low risk p (more content not included)... [facility] Comment on above: Result Comment: Elec tronically Signed By: Romi Sarmiento MD\.br\Date and Time Signed: 06/14/22 11:14 EST\.br\Electronically Co-Signed By: Delmy Lai P\.br\Date and Time Co-Signed: 06/13/22 11:39 EST Ambulatory Visit Summaryon 0 06-13-2022 Ambulatory Visit Summary JASMIN CALVILLO :1975 Visit Date:06/13/2022 Ambulatory Visit Instructions Your Diagnosis Kidney stones Asymptomatic microscopic hematuria Tests Performed Urnls Dip Stick Auto w/o Microscopy POC [id number] US Renal -- Results Pending -- XR Abdomen 1 View -- Results Pending -- Please visit your patient portal for your results or contact your primary care physician. Your Care Team Attending Physician - Romi Sarmiento MD Primary Care Physician - SHANNON DIAMOND, LUDY French This Is Your Medications List tamsulosin (Flomax 0.4 mg Cap) Contact prescribing physician if questions or concerns calcium citrate (calcium citrate Tab) multivitamin with minerals (Bariatric Multivitamins with 45 mg Iron oral capsule) promethazine (promethazine 25 mg Tab) [Image Removed: STOP]Stop taking these medications acetaminophen-oxycodone (Percocet 325 mg-5 mg Tab) docusate (Colace 100 mg Cap) Procedures Performed History of knee surgery (1992), Extraction of wisdom tooth, Gastric bypass operation, H/O: tubal ligation, Hand tendon operation. Discharge Vitals Height 165 cm Height 65 in Weight 73.5 kg Weight 161.7 lb BMI 27 What to do next Scheduled Follow-Up Appointments Thursday. 2022 9:30 AM EST With: Romi Sarmiento MD Where: [facility] Patient Educationon 06-13-19 Patient Education Urology Dietary Guidelines to Help Prevent Kidney Stones Kidney stones are deposits of minerals and salts that form inside your kidneys. Your risk of developing kidney stones may be greater depending on your diet, your lifestyle, the medicines you take, and whether you have certain medical conditions. Most people can reduce their chances of developing kidney stones by following the instructions below. Depending on your overall health and the type of kidney stones you tend to develop, your dietitian may give you more specific instructions. What are tips for following this plan? Reading food labels ? Choose foods with no salt added or low-salt labels. Limit your sodium intake to less than 1500 mg per day. ? Choose foods with calcium for each meal and snack. Try to eat about 300 mg of calcium at each meal. Foods that contain 200?500 mg of calcium per serving include: ? 8 oz (237 ml) of milk, fortified nondairy milk, and fortified fruit juice. ? 8 oz (237 ml) of kefir, yogurt, and soy yogurt. ? 4 oz (118 ml) of tofu. ? 1 oz of cheese. ? 1 cup (300 g) of dried figs. ? 1 cup (91 g) of cooked broccoli. ? 1?3 oz can of sardines or mackerel. ? Most people need 1000 to 1500 mg of calcium each day. Talk to your dietitian about how much calcium is recommended for you. Shopping ? Buy plenty of fresh fruits and vegetables. Most people do not need to avoid fruits and vegetables, even if they contain nutrients that may contribute to kidney stones. ? When shopping for convenience foods, choose: ? Whole pieces of fruit. ? Premade salads with dressing on the side. ? Low-fat fruit and yogurt smoothies. ? Avoid buying frozen meals or prepared deli foods. ? Look for foods with live cultures, such as yogurt and kefir. Cooking ? Do not add salt to food when cooking. Place a salt shaker on the table and allow each person to add his or her own salt to taste. ? Use vegetable protein, such as beans, textured vegetable protein (TVP), or tofu instead of meat in pasta, casseroles, and soups. Meal planning ? Eat less salt, if told by your dietitian. To do this: ? Avoid eating processed or premade food. ? Avoid eating fast food. ? Eat less animal protein, including cheese, meat, poultry, or fish, if told by your dietitian. To do this: ? Limit the number of times you have meat, poultry, fish, or cheese each week. Eat a diet free of meat at least 2 days a week. ? Eat only one serving each day of meat, poultry, fish, or seafood. ? When you prepare animal protein, cut pieces into small portion sizes. For most meat and fish, one serving is about the size of one deck of cards. ? Eat at least 5 servings of fresh fruits and vegetables each day. To do this: ? Keep fruits and vegetables on hand for snacks. ? Eat 1 piece of fruit or a handful of berries with breakfast. ? Have a salad and fruit at lunch. ? Have two kinds of vegetables at dinner. ? Limit foods that are high in a substance called oxalate. These include: ? Spinach. ? Rhubarb. ? Beets. ? Potato chips and lao fries. ? Nuts. ? If you regularly take a diuretic medicine, make sure to eat at least 1?2 fruits or vegetables high in potassium each day. These include: ? Avocado. ? Banana. ? [place], prune, carrot, or tomato juice. ? Baked potato. ? Cabbage. ? Beans and split peas. General instructions ? Drink enough fluid to keep your urine clear or pale yellow. This is the most important thing you can do. ? Talk to your health care provider and dietitian about taking daily supplements. Depending on your health and the cause of your kidney stones, you may be advised: ? Not to take supplements with vitamin C. ? To take a calcium supplement. ? To take a daily probiotic supplement. ? To take other supplements such as magnesium, fish oil, or vitamin B6. ? Take all medicines and supplements as told by your health care provider. ? Limit alcohol intake to no more than 1 drink a day for non women and 2 drinks a day for men. One drink equals 12 oz of beer, 5 oz of wine, or 1? oz of hard liquor. ? Lose weight if told by your health care provider. Work with your dietitian to find strategies and an eating plan that works best for you. What foods are not recommended? Limit your intake of the following foods, or as told by your dietitian. Talk to your dietitian about specific foods you should avoid based on the type of kidney stones and your overall health. Grains Breads. Bagels. Rolls. Baked goods. Salted crackers. Cereal. Pasta. Vegetables Spinach. Rhubarb. Beets. Canned vegetables. Pickles. Olives. Meats and other protein foods Nuts. Nut butters. Large portions of meat, poultry, or fish. Salted or cured meats. Deli meats. Hot dogs. Sausages. Dairy Cheese. Beverages Regular soft drinks. Regular vegetable juice. Seasonings and other foods Seasoning blends with salt. Salad dr (more content not included)... Normal [facility] US KIDNEYSon 06-06-2022 US KIDNEYS EXAMINATION: MICHAEL DENISE HISTORY: Kidney stone COMPARISON: CT abdomen pelvis with contrast 05/27/2022 TECHNIQUE: Ultrasound examination was performed of the kidneys and urinary bladder. FINDINGS: RIGHT KIDNEY: Dilated renal pelvis and calyces with 6 mm stone within proximal ureter. Nonobstructing 5 mm stone within inferior pole of kidney.. Color Doppler demonstrates blood flow within the kidney. Kidney: 10.8 x 6.6 x 6.4 cm LEFT KIDNEY: Mildly dilated renal pelvis and calyces with a 7 mm stone in distal ureter at the ureterovesical junction. Nonobstructing 9 x 5 x 4 mm stone within inferior pole. Doppler demonstrates blood flow within the kidney. Kidney: 11.8 x 4.8 x 5.7 cm BLADDER: No visible wall thickening, mass, or calculi. URETERAL JETS: Visualized bilaterally. IMPRESSION: 1. Mild bilateral hydronephrosis secondary to nonobstructing ureteral stones bilaterally. 2. Bilateral nonobstructing nephrolithiasis. Electronically authenticated by: ETTA CEDEÑO Date: 2022-06-06 12:32 Normal [facility] XR KUB 1 VIEWon 06-06-2022 XR KUB 1 VIEW EXAMINATION: XR KUB 1 VIEW HISTORY: Kidney stone COMPARISON: CT abdomen pelvis 05/27/2022, XR abdomen and PA chest 05/27/2022 FINDINGS: KIDNEY/URETER - RIGHT: Small stone within inferior pole of right kidney. KIDNEY/URETER - LEFT: No visible renal or ureteral calcifications. PELVIS: Multiple tiny calcifications within lower left pelvis favoring phleboliths. Distal ureteral stone cannot be excluded. BOWEL: No abnormal dilation or deviation. BONES: No acute abnormality. OTHER: Bilateral fallopian tube clips. IMPRESSION: 1. No convincing ureteral stones on this radiograph, but no stones were appreciated within the ureters on the 05/27/2022 study, however, the CT abdomen pelvis [facility] hydronephrosis and hydroureters secondary to stones. Today's ultrasound study suggests persistent nonobstructing stones within both ureters. Electronically authenticated by: ETTA CEDEÑO Date: 2022-06-06 12:36 Normal [facility] CT ABD/PELV W CONon 05-28-[address] ABD/PELV W CON CT ABD/PELV W CON: 05/27/2022 9:27 PM EST CLINICAL HISTORY: 46 years old Female with right lower quadrant ABDOMINAL PAIN. TECHNIQUE: Axial CT images through the abdomen and pelvis are obtained after the intravenous administration of contrast. Coronal and sagittal reformations are also obtained. Dose reduction techniques were achieved by using automated exposure control and/or adjustment of mA and/or kV according to patient size and/or use of iterative reconstruction technique. COMPARISON: None available. FINDINGS: The lung bases are clear with no dependent infiltrate or effusion. The liver, gallbladder, spleen, pancreas and bilateral adrenal glands are unremarkable. There is mild right hydronephrosis and mildly delayed nephrogram with perinephric stranding with calculus at the ureteropelvic junction measuring 5 mm. Additional mild dilatation of the ureter and periureteral stranding is also present distally with 1 mm calculus at the right ureterovesicular junction. Additional calculus at the left ureterovesicular junction measures 3 mm without significant left hydronephrosis or hydroureter. Additional 3 mm right and 2 mm left nonobstructing renal calculi are also present. Gastric bypass postsurgical change. No abnormally dilated loops of small bowel are evident. The appendix is visualized without inflammatory change. The colon is unremarkable. The bladder appears unremarkable. There is no evidence of aortic aneurysm present. No enlarged lymph nodes are seen. No free air or free fluid is seen. Tubal ligation clips are present. The uterus and adnexa are within normal limits. No acute compression fracture deformity or suspicious osseous abnormality identified. IMPRESSION: 1. Mild right hydronephrosis and delayed nephrogram. 5 mm calculus at the right ureteropelvic junction, 1 mm calculus at the right ureterovesicular junction and 3 mm calculus at the left ureterovesicular junction without left hydronephrosis or hydroureter. Additional 2 to 3 mm nonobstructing renal calculi are also present. 2. Gastric bypass postsurgical change. Electronically authenticated by: MEGHA RESENDIZ Date: 2022-05-27 23:14 Normal [facility] CBC AUTO DIFFon 05-27-2022 BASO # 0.0 103/ul Normal 0.0-0.1 [facility] Comment on above: Performed By: #### C ALCULI #### [facility] [address] [place] [address] Dr. Sandra Castano Basophils/100 WBC (Bld) 0.4 % Normal 0.2-2.0 [facility] Comment on above: Performed By: #### C ALCULI #### [facility] [address] [place] [address] Dr. Sandra Castano EO # 0.0 103/ul Normal 0.0-0.7 [facility] Comment on above: Performed By: #### C ALCULI #### [facility] [address] [address] [address] Sandra Castano Eosinophils/100 WBC (Bld) 0.1 % Critically low 0.9-7.0 [facility] Comment on above: Performed By: #### C ALCULI #### [facility] [address] [place] [address] Dr. Sandra Castano Erythrocyte distribution width (RBC) [Ratio] 13.0 % Normal 11.0-15.0 [facility] Comment on above: Performed By: #### C ALCULI #### [facility] [address] [place] [address] Dr. Sandra Castano Hematocrit (Bld) [Volume fraction] 37.1 % Normal 36.0-48.0 [facility] Comment on above: Performed By: #### C ALCULI #### [facility] [address] [place] [address] Dr. Sandra Castano Hemoglobin (Bld) [Mass/Vol] 12.1 g/dL Normal 12.0-16.0 [facility] Comment on above: Performed By: #### C ALCULI #### [facility] [address] [place] [address] Dr. Sandra Castano IG # 0.05 10e3/ul Critically high 0.00-0.03 [facility] Comment on above: Performed By: #### C ALCULI #### [facility] [address] [place] [address] Dr. Sandra Castano IG % 0.6 % Critically high 0.0-0.5 [facility] Comment on above: Performed By: #### C ALCULI #### [facility] [address] [place] [address] Dr. Sandra Castano LYMPH # 1.0 103/ul Critically low 1.2-3.8 [facility] Comment on above: Performed By: #### C ALCULI #### [facility] [address] [place] [address] Dr. Sandra Castano Lymphocytes/100 WBC (Bld) 11.7 % Critically low 20.5-60.0 [facility] Comment on above: Performed By: #### C ALCULI #### [facility] [address] [place] [address] Dr. Sandra Castano MANUAL DIFF REQ NO Normal [facility] Comment on above: Performed By: #### C ALCULI #### [facility] [address] [place] [address] Dr. Sandra Castano MCH (RBC) [Entitic mass] 28.8 pg Normal 26.7-34.0 [facility] Comment on above: Performed By: #### C ALCULI #### [facility] [address] [place] [address] Dr. Sandra Castano MCHC (RBC) [Mass/Vol] 32.6 g/dL Normal 29.9-35.2 [facility] Comment on above: Performed By: #### C ALCULI #### [facility] [address] [place] [address] Dr. Sandra Castano MCV (RBC) [Entitic vol] 88.3 fL Normal 81.0-99.0 [facility] Comment on above: Performed By: #### C ALCULI #### [facility] [address] [place] [address] Dr. Sandra Castano MONO # 0.4 103/ul Normal 0.3-0.8 [facility] Comment on above: Performed By: #### C ALCULI #### [facility] [address] [place] [address] Dr. Sandra Castano Monocytes/100 WBC (Bld) 4.2 % Normal 1.7-12.0 [facility] Comment on above: Performed By: #### C ALCULI #### [facility] [address] [place] [address] Dr. Sandra Castano NEUT # 6.8 103/ul Critically high 1.4-6.5 [facility] Comment on above: Performed By: #### C ALCULI #### [facility] [address] [place] [address] Dr. Sandra Castano Neutrophils/100 WBC (Bld) 83.0 % Critically high 43.0-75.0 [facility] Comment on above: Performed By: #### C ALCULI #### [facility] [address] [place] [address] Dr. Sandra Castano Platelet mean volume (Bld) [Entitic vol] 11.1 fL Normal 9.5-13.5 [facility] Comment on above: Performed By: #### C ALCULI #### [facility] [address] [place] [address] Dr. Sandra Castano PLT 312 103/ul Normal 150-450 [facility] Comment on above: Performed By: #### C ALCULI #### [facility] [address] [place] [address] Dr. Sandra Castano RBC 4.20 106/ul Normal 4.20-5.40 [facility] Comment on above: Performed By: #### C ALCULI #### [facility] [address] [place] [address] Dr. Sandra Castano WBC 8.2 103/ul Normal 4.0-11.0 [facility] Comment on above: Performed By: #### C ALCULI #### [facility] [address] [place] [address] Dr. Sandra Castano CULTURE URINEon 05-27-2022 CULTURE URINE Culture Observations : LIGHT GROWTH OF MIXED GENITAL NITISH. NO POTENTIAL PATHOGENS SEEN. Normal [facility] Comment on above: Performed By: #### L IPA, CMP #### [facility] [address] [place] [address] Dr. Sandra Castano ER URINE PROFILEon Bilirubin Ql (U) Negative Normal NEGATIVE [facility] Comment on above: Performed By: #### E RUR, UMICRO #### [facility] [address] [place] [address] Dr. Sandra Castano Clarity (U) CLEAR Normal CLEAR [facility] Comment on above: Performed By: #### E RUR, UMICRO #### [facility] [address] [place] [address] Dr. Sandra Castano Color (U) YELLOW Normal YELLOW [facility] Comment on above: Performed By: #### E RUR, UMICRO #### [facility] [address] [place] [address] Dr. Sandra Castano ERUGINA A micrscopic examina tion will be performed if indicated. Normal [facility] Comment on above: Performed By: #### E RUR, UMICRO #### [facility] [address] [place] [address] Dr. Sandra Castano Glucose Ql (U) Negative Normal NEGATIVE [facility] Comment on above: Performed By: #### E RUR, UMICRO #### [facility] [address] [place] [address] Dr. Sandra Castano Hemoglobin Ql (U) Negative Normal NEGATIVE [facility] Comment on above: Performed By: #### E RUR, UMICRO #### [facility] [address] [place] [address] Dr. Sandra Castano Ketones Ql (U) 40 mg/dl Abnormal NEGATIVE [facility] Comment on above: Performed By: #### E RUR, UMICRO #### [facility] [address] [place] [address] Dr. Sandra Castano LEUKOCYTES Negative Normal NEGATIVE [facility] Comment on above: Performed By: #### FLORENCIO DUBOISRO #### [facility] [address] [place] [address] Dr. Sandra Castano Nitrite Ql (U) Negative Normal NEGATIVE [facility] Comment on above: Performed By: #### FLORENCIO DUBOISRO #### [facility] [address] [place] [address] Dr. Sandra Castano pH (U) 5.0 [pH] Normal 5-9 [facility] Comment on above: Performed By: #### TAWANDA DUBOIS #### [facility] [address] [place] [address] Dr. Sandra Castano Protein (U) [Mass/Vol] 30 mg/dL Abnormal NEGATIVE/ TRACE [facility] Comment on above: Performed By: #### FLORENCIO DUBOISRO #### [facility] [address] [place] [address] Dr. Sandra Castano SPEC GRAVITY >=1.030 Abnormal 1.005-<=1.02 5 [facility] Comment on above: Performed By: #### FLORENCIO DUBOISRO #### [facility] [address] [place] [address] Dr. Sandra Castano UR MICRO IND INDICATED Normal [facility] Comment on above: Performed By: #### FLORENCIO DUBOISRO #### [facility] [address] [place] [address] Dr. Sandra Castano Urobilinogen Qn (U) 0.2 {Tee'U}/dL Normal 0.2 - 1. 0 [facility] Comment on above: Performed By: #### FLORENCIO DUBOISRO #### [facility] [address] [place] [address] Dr. Sandra Castano LIPASEon 05-27-2022 Lipase [Catalytic activity/Vol] 88.0 U/L Normal 73.0-393.0 [facility] Comment on above: Performed By: #### L IPA, CMP #### [facility] [address] [address] [address] Sandra Castano URon 05-27-2022 , QUAL Negative Normal NEGATIVE [facility] Comment on above: Performed By: #### P REGU #### [facility] [address] [address] [address] Sandra Castano PROF 14(COMP METB)on 022 Albumin [Mass/Vol] 4.0 g/dL Normal 3.4-5.0 [facility] Comment on above: Performed By: #### L IPA, CMP #### [facility] [address] [place] [address] Dr. Sandra Castano Albumin/Globulin [Mass ratio] 1.0 {ratio} Normal [facility] Comment on above: Performed By: #### L IPA, CMP #### [facility] [address] [place] [address] Dr. Sandra Castano ALP [Catalytic activity/Vol] 106 U/L Normal 46-116 [facility] Comment on above: Performed By: #### L IPA, CMP #### [facility] [address] [place] [address] Dr. Sandra Castano ALT [Catalytic activity/Vol] 24 U/L Normal 14-59 [facility] Comment on above: Performed By: #### L IPA, CMP #### [facility] [address] [address] [address] Sandra Castano Anion gap [Moles/Vol] 15.2 mmol/L Normal [facility] Comment on above: Performed By: #### L IPA, CMP #### [facility] [address] [address] [address] Sandra Castano AST [Catalytic activity/Vol] 21 U/L Normal 15-37 [facility] Comment on above: Performed By: #### L IPA, CMP #### [facility] [address] [place] [address] Dr. Sandra Castano Bilirubin [Mass/Vol] 0.4 mg/dL Normal 0.2-1.0 [facility] Comment on above: Performed By: #### L IPA, CMP #### [facility] [address] [address] [address] Sandra Castano Calcium [Mass/Vol] 9.6 mg/dL Normal 8.5-10.1 [facility] Comment on above: Performed By: #### L IPA, CMP #### [facility] [address] [address] [address] Sandra Castano Chloride [Moles/Vol] 99 mmol/L Normal 98-107 [facility] Comment on above: Performed By: #### L IPA, CMP #### [facility] [address] [address] [address] Sandra Castano CO2 [Moles/Vol] 25.2 mmol/L Normal 21.0-32.0 [facility] Comment on above: Performed By: #### L IPA, CMP #### [facility] [address] [place] [address] Dr. Sandra Castano Creatinine [Mass/Vol] 0.90 mg/dL Normal 0.55-1.02 [facility] Comment on above: Performed By: #### L IPA, CMP #### [facility] [address] [place] [address] Dr. Sandra Castano EGFR-AF PUERTO RICAN >60 Normal >=60 [facility] Comment on above: Performed By: #### L IPA, CMP #### [facility] [address] [address] [address] Sandra Castano EGFR-NON AF PUERTO RICAN >60 Normal >=60 [facility] Comment on above: Performed By: #### L IPA, CMP #### [facility] [address] [address] [address] Sandra Castano Globulin (S) [Mass/Vol] 4.2 g/dL Normal [facility] Comment on above: Performed By: #### L IPA, CMP #### [facility] [address] [address] [address] Sandra Castano Glucose [Mass/Vol] 171 mg/dL Critically high 74-106 [facility] Comment on above: Performed By: #### L IPA, CMP #### [facility] [address] [address] [address] Sandra Castano Potassium [Moles/Vol] 3.4 mmol/L Critically low 3.5-5.1 [facility] Comment on above: Performed By: #### L IPA, CMP #### [facility] [address] [place] [address] Dr. Sandra Castano Protein [Mass/Vol] 8.2 g/dL Normal 6.4-8.2 [facility] Comment on above: Performed By: #### L IPA, CMP #### [facility] [address] [place] [address] Dr. Sandra Castano Sodium [Moles/Vol] 136 mmol/L Normal 136-145 [facility] Comment on above: Performed By: #### L IPA, CMP #### [facility] [address] [place] [address] Dr. Sandra Castano Urea nitrogen [Mass/Vol] 14.0 mg/dL Normal 7.0-18.0 [facility] Comment on above: Performed By: #### L IPA, CMP #### [facility] [address] [place] [address] Dr. Sandra Castano Urea nitrogen/Creatinine [Mass ratio] 15.6 mg/mg Normal [facility] Comment on above: Performed By: #### L IPA, CMP #### [facility] [address] [place] [address] Dr. Sandra Castano URINE MICROSCOPIC ONLYon BACTERIA MODERATE Abnormal NONE SEEN [facility] Comment on above: Performed By: #### E RUR, UMICRO #### [facility] [address] [place] [address] Dr. Sandra Castano Bacteria identified Cx Nom (U) INDICATED Normal [facility] Comment on above: Performed By: #### E RUR, UMICRO #### [facility] [address] [place] [address] Dr. Sandra Castano CAST NONE SEEN Normal NONE SEEN [facility] Comment on above: Performed By: #### E RUR, UMICRO #### [facility] [address] [place] [address] Dr. Sadnra Castano Crystals LM Nom (Urine sed) NONE SEEN Normal NONE SEEN [facility] Comment on above: Performed By: #### Gillian ACEVEDO UMICRO #### [facility] [address] [place] [address] Dr. Sandra Castano Epithelial cells LM Ql (Urine sed) RARE Normal NONE SEEN /RARE [facility] Comment on above: Performed By: #### Gillian ACEVEDO UMICRO #### [facility] [address] [place] [address] Dr. Sandra Castano MUCOUS TRACE Abnormal NONE SEEN [facility] Comment on above: Performed By: #### Gillian ACEVEDO UMICRO #### [facility] [address] [place] [address] Dr. Sandra Castano RBC 2-5 Abnormal 0-2 [facility] Comment on above: Performed By: #### Gillian ACEVEDO UMICRO #### [facility] [address] [place] [address] Dr. Sandra Castano WBC 2-5 Abnormal NONE SEEN [facility] Comment on above: Performed By: #### Gillian ACEVEDO UMICRO #### [facility] [address] [place] [address] Dr. Sandra Castano YEAST PRESENT Abnormal NONE SEEN [facility] Comment on above: Performed By: #### Gillian ACEVEDO UMICRO #### [facility] [address] [place] [address] Dr. Sandra Castano XR ABD FLAT UP_PA Jo 05-27 XR ABD FLAT UP_PA CH EXAMINATION: XR ABD FLAT UP_PA CH, 05/27/2022 8:33 PM EST HISTORY:CONSTIPATION, UNSPECIFIED COMPARISON:None TECHNIQUE:Frontal views of the chest and abdomen are submitted. FINDINGS: No abnormally dilated loops of bowel are identified. No obvious free air or pneumatosis are present. No suspicious urologic opacifications are appreciated. There is a mild stool burden. There is no free air under the diaphragm. There are surgical clips in the left upper quadrant and left lower quadrant. The cardiomediastinal silhouette is not enlarged. The pulmonary vascularity is within normal limits. The lungs are clear based on chest radiography. There is no costophrenic angle blunting. IMPRESSION: Unremarkable plain film examination of the chest and abdomen. Electronically authenticated by: MAXIMILIANO TAYLOR Date: 2022-05-27 21:17 Normal [facility] VITAMIN B1 (THIAMINE)on 05-01 Vit. B1, Whole Blood 168.7 nmol/L Normal 66.5-200.0 [facility] Comment on above: Performed By: #### C ALCULI #### [facility] [address] [place] [address] Dr. Sandra Castano CBC AUTO DIFFon 05-07-2022 BASO # 0.1 103/ul Normal 0.0-0.1 [facility] Comment on above: Performed By: #### L IPA, CMP #### [facility] [address] [place] [address] Dr. Sandra Castano Basophils/100 WBC (Bld) 0.5 % Normal 0.2-2.0 [facility] Comment on above: Performed By: #### L IPA, CMP #### [facility] [address] [place] [address] Dr. Sandra Castano EO # 0.1 103/ul Normal 0.0-0.7 [facility] Comment on above: Performed By: #### L IPA, CMP #### [facility] [address] [place] [address] Dr. Sandra Castano Eosinophils/100 WBC (Bld) 1.3 % Normal 0.9-7.0 [facility] Comment on above: Performed By: #### L IPA, CMP #### [facility] [address] [place] [address] Dr. Sandra Castano Erythrocyte distribution width (RBC) [Ratio] 12.8 % Normal 11.0-15.0 [facility] Comment on above: Performed By: #### L IPA, CMP #### [facility] [address] [place] [address] Dr. Sandra Castano Hematocrit (Bld) [Volume fraction] 37.5 % Normal 36.0-48.0 [facility] Comment on above: Performed By: #### L IPA, CMP #### [facility] [address] [address] [address] Sandra Castano Hemoglobin (Bld) [Mass/Vol] 12.1 g/dL Normal 12.0-16.0 [facility] Comment on above: Performed By: #### L IPA, CMP #### [facility] [address] [address] [address] Sandra Castano IG # 0.03 10e3/ul Normal 0.00-0.03 [facility] Comment on above: Performed By: #### L IPA, CMP #### [facility] [address] [place] [address] Dr. Sandra Castano IG % 0.3 % Normal 0.0-0.5 [facility] Comment on above: Performed By: #### L IPA, CMP #### [facility] [address] [place] [address] Dr. Sandra Castano LYMPH # 2.6 103/ul Normal 1.2-3.8 [facility] Comment on above: Performed By: #### L IPA, CMP #### [facility] [address] [place] [address] Dr. Sandra Castano Lymphocytes/100 WBC (Bld) 28.8 % Normal 20.5-60.0 [facility] Comment on above: Performed By: #### L IPA, CMP #### [facility] [address] [place] [address] Dr. Sandra Castano MANUAL DIFF REQ NO Normal [facility] Comment on above: Performed By: #### L IPA, CMP #### [facility] [address] [place] [address] Dr. Sandra Castano MCH (RBC) [Entitic mass] 29.2 pg Normal 26.7-34.0 [facility] Comment on above: Performed By: #### L IPA, CMP #### [facility] [address] [place] [address] Dr. Sandra Castano MCHC (RBC) [Mass/Vol] 32.3 g/dL Normal 29.9-35.2 [facility] Comment on above: Performed By: #### L IPA, CMP #### [facility] [address] [address] [address] Sandra Castano MCV (RBC) [Entitic vol] 90.4 fL Normal 81.0-99.0 [facility] Comment on above: Performed By: #### L IPA, CMP #### [facility] [address] [place] [address] Dr. Sandra Castano MONO # 0.5 103/ul Normal 0.3-0.8 [facility] Comment on above: Performed By: #### L IPA, CMP #### [facility] [address] [place] [address] Dr. Sandra Castano Monocytes/100 WBC (Bld) 5.4 % Normal 1.7-12.0 [facility] Comment on above: Performed By: #### L IPA, CMP #### [facility] [address] [place] [address] Dr. Sandra Castano NEUT # 5.8 103/ul Normal 1.4-6.5 [facility] Comment on above: Performed By: #### L IPA, CMP #### [facility] [address] [place] [address] Dr. Sandra Castano Neutrophils/100 WBC (Bld) 63.7 % Normal 43.0-75.0 [facility] Comment on above: Performed By: #### L IPA, CMP #### [facility] [address] [place] [address] Dr. Sandra Castano Platelet mean volume (Bld) [Entitic vol] 11.0 fL Normal 9.5-13.5 [facility] Comment on above: Performed By: #### L IPA, CMP #### [facility] [address] [place] [address] Dr. Sandra Castano PLT 370 103/ul Normal 150-450 [facility] Comment on above: Performed By: #### L IPA, CMP #### [facility] [address] [place] [address] Dr. Sandra Castano RBC 4.15 106/ul Critically low 4.20-5.40 [facility] Comment on above: Performed By: #### L IPA, CMP #### [facility] [address] [place] [address] Dr. Sandra Castano WBC 9.1 103/ul Normal 4.0-11.0 [facility] Comment on above: Performed By: #### L IPA, CMP #### [facility] [address] [place] [address] Dr. Sandra Castano FERRITINon 05-07-2022 Ferritin [Mass/Vol] 180.0 ng/mL Critically high 6.2-137.0 [facility] Comment on above: Performed By: #### L IPA, CMP #### [facility] [address] [place] [address] Dr. Sandra Castano IRON AND TIBCon 05-07-2022 % SATURATION 19.4 % Normal [facility] Comment on above: Performed By: #### L IPA, CMP #### [facility] [address] [place] [address] Dr. Sandra Castano Iron [Mass/Vol] 43.0 ug/dL Critically low 50.0-170.0 [facility] Comment on above: Performed By: #### L IPA, CMP #### [facility] [address] [place] [address] Dr. Sandra Castano TIBC DIRECT 222.0 ug/dL Critically low 250.0-450.0 [facility] Comment on above: Performed By: #### L IPA, CMP #### [facility] [address] [place] [address] Dr. Sandra Castano MAGNESIUMon 05-07-2022 Magnesium [Mass/Vol] 1.8 mg/dL Normal 1.8-2.4 [facility] Comment on above: Performed By: #### M G CMP, PHOS #### [facility] [address] [place] [address] Dr. Sandra Castano PHOSPHORUSon 05-07-2022 Phosphate [Mass/Vol] 4.4 mg/dL Normal 2.6-4.7 [facility] Comment on above: Performed By: #### M G, CMP, PHOS #### [facility] [address] [address] [address] Sandra Castano PROF 14(COMP METB)on 022 Albumin [Mass/Vol] 3.6 g/dL Normal 3.4-5.0 [facility] Comment on above: Performed By: #### M G, CMP, PHOS #### [facility] [address] [address] [address] Sandra Castano Albumin/Globulin [Mass ratio] 0.9 {ratio} Normal [facility] Comment on above: Performed By: #### M G, CMP, PHOS #### [facility] [address] [address] [address] Sandra Castano ALP [Catalytic activity/Vol] 106 U/L Normal 46-116 [facility] Comment on above: Performed By: #### M G, CMP, PHOS #### [facility] [address] [address] [address] Sandra Castano ALT [Catalytic activity/Vol] 61 U/L Critically high 14-59 [facility] Comment on above: Performed By: #### M G, CMP, PHOS #### [facility] [address] [address] [address] Sandra Castano Anion gap [Moles/Vol] 12.2 mmol/L Normal [facility] Comment on above: Performed By: #### M G, CMP, PHOS #### [facility] [address] [address] [address] Sandra Castano AST [Catalytic activity/Vol] 35 U/L Normal 15-37 [facility] Comment on above: Performed By: #### M G, CMP, PHOS #### [facility] [address] [address] [address] Sandra Castano Bilirubin [Mass/Vol] 0.5 mg/dL Normal 0.2-1.0 [facility] Comment on above: Performed By: #### M G, CMP, PHOS #### [facility] [address] [address] [address] Sandra Castano Calcium [Mass/Vol] 9.7 mg/dL Normal 8.5-10.1 [facility] Comment on above: Performed By: #### M Selin CMP, PHOS #### [facility] [address] [place] [address] Dr. Sandra Castano Chloride [Moles/Vol] 101 mmol/L Normal 98-107 [facility] Comment on above: Performed By: #### M Selin CMP, PHOS #### [facility] [address] [place] [address] Dr. Sandra Castano CO2 [Moles/Vol] 30.9 mmol/L Normal 21.0-32.0 [facility] Comment on above: Performed By: #### M CINDY Smallwood, PHOS #### [facility] [address] [place] [address] Dr. Sandra Castano Creatinine [Mass/Vol] 0.74 mg/dL Normal 0.55-1.02 [facility] Comment on above: Performed By: #### Jorge Smallwood CMP, PHOS #### [facility] [address] [place] [address] Dr. Sandra Castano EGFR-AF PUERTO RICAN >60 Normal >=60 [facility] Comment on above: Performed By: #### Jorge Smallwood CMP, PHOS #### [facility] [address] [place] [address] Dr. Sandra Castano EGFR-NON AF PUERTO RICAN >60 Normal >=60 [facility] Comment on above: Performed By: #### M Selin CMP, PHOS #### [facility] [address] [place] [address] Dr. Sandra Castano Globulin (S) [Mass/Vol] 3.9 g/dL Normal [facility] Comment on above: Performed By: #### M Selin, CMP, PHOS #### [facility] [address] [place] [address] Dr. Sandra Castano Glucose [Mass/Vol] 98 mg/dL Normal 74-106 [facility] Comment on above: Performed By: #### M Selin, CMP, PHOS #### [facility] [address] [place] [address] Dr. Sandra Castano Potassium [Moles/Vol] 4.1 mmol/L Normal 3.5-5.1 [facility] Comment on above: Performed By: #### M G, CMP, PHOS #### [facility] [address] [place] [address] Dr. Sandra Castano Protein [Mass/Vol] 7.5 g/dL Normal 6.4-8.2 [facility] Comment on above: Performed By: #### M G, CMP, PHOS #### [facility] [address] [place] [address] Dr. Sandra Castano Sodium [Moles/Vol] 140 mmol/L Normal 136-145 [facility] Comment on above: Performed By: #### M G, CMP, PHOS #### [facility] [address] [place] [address] Dr. Sandra Castano Urea nitrogen [Mass/Vol] 7.0 mg/dL Normal 7.0-18.0 [facility] Comment on above: Performed By: #### M G, CMP, PHOS #### [facility] [address] [place] [address] Dr. Sandra Castano Urea nitrogen/Creatinine [Mass ratio] 9.5 mg/mg Normal [facility] Comment on above: Performed By: #### M G CMP, PHOS #### [facility] [address] [place] [address] Dr. Sandra Castano VIT B12 AND FOLATEon 022 Cobalamin (Vitamin B12) [Mass/Vol] 1075.0 pg/mL Critically high 193.0-986.0 [facility] Comment on above: Performed By: #### L IPA, CMP #### [facility] [address] [address] [address] Sandra Castano FOLATE 9.80 ng/mL Normal 8.60-58.90 [facility] Comment on above: Performed By: #### L IPA, CMP #### [facility] [address] [place] [address] Dr. Sandra Castano VITAMIN D 25 OHon 05-07-2022 VIT D 25-OH 96.8 ng/mL Normal [facility] Comment on above: Performed By: #### L IPA, CMP #### [facility] [address] [address] [address] aSndra Castano VIT D RANGES SEE BELOW Normal [facility] Comment on above: Result Comment: <20 ng/mL Vit D deficient 20 - <30 ng/mL Vit D insufficient 30 - 100 ng/mL Vit D sufficient >100 ng/mL Potential Toxicity Performed By: #### L IPA, CMP #### [facility] [address] [address] [address] Sandra Castano BLOOD BANKOrdered By: Latrice Lopez on 03-24-2022 ABO/Rh Interp AB NEG Invalid Interpretation Code [facility] BB Subsection ABSC Gel Interp Negative (03/24/22 8:33 AM) Normal [facility] BB Subsection VITAMIN B1 (THIAMINE)on 12-30 Vit. B1, Whole Blood 154.0 nmol/L Normal 66.5-200.0 [facility] Comment on above: Performed By: #### V ITB1T #### [facility] [address] [address] [address] Sandra Castano VIT D 25-OH [employer]ABC[employer]on 2021 Vitamin D, 25-Hydroxy 98.0 ng/mL Normal 30.0-100.0 [facility] Comment on above: Result Comment: Wanda min D deficiency has been defined by the [place] [employer] and an Endocrine Society practice guideline as a level of serum 25-OH vitamin D less than 20 ng/mL (1,2). The Endocrine Society went on to further define vitamin D insufficiency as a level between 21 and 29 ng/mL (2). 1. IOM ([place] [employer]). 2010. Dietary reference intakes for calcium and D. [place]: The National Academies Press. 2. [place] MF, Maya [place], Kesha OLGUIN, et al. Evaluation, treatment, and prevention of vitamin D deficiency: an Endocrine Society clinical practice guideline. JCEM. 2010; 96(7):1911-30. Performed By: #### L IPA, CMP #### [facility] [address] [address] [address] Sandra Castano CBC AUTO DIFFon 01-13-2022 BASO # 0.0 103/ul Normal 0.0-0.1 [facility] Comment on above: Performed By: #### L IPA, CMP #### [facility] [address] [place] [address] Dr. Sandra Castano Basophils/100 WBC (Bld) 0.5 % Normal 0.2-2.0 [facility] Comment on above: Performed By: #### L IPA, CMP #### [facility] [address] [place] [address] Dr. Sandra Castano EO # 0.1 103/ul Normal 0.0-0.7 [facility] Comment on above: Performed By: #### L IPA, CMP #### [facility] [address] [place] [address] Dr. Sandra Castano Eosinophils/100 WBC (Bld) 2.0 % Normal 0.9-7.0 [facility] Comment on above: Performed By: #### L IPA, CMP #### [facility] [address] [place] [address] Dr. Sandra Castano Erythrocyte distribution width (RBC) [Ratio] 13.7 % Normal 11.0-15.0 [facility] Comment on above: Performed By: #### L IPA, CMP #### [facility] [address] [place] [address] Dr. Sandra Castano Hematocrit (Bld) [Volume fraction] 39.9 % Normal 36.0-48.0 [facility] Comment on above: Performed By: #### L IPA, CMP #### [facility] [address] [place] [address] Dr. Sandra Castano Hemoglobin (Bld) [Mass/Vol] 13.0 g/dL Normal 12.0-16.0 [facility] Comment on above: Performed By: #### L IPA, CMP #### [facility] [address] [place] [address] Dr. Sandra Castano IG # 0.02 10e3/ul Normal 0.00-0.03 [facility] Comment on above: Performed By: #### L IPA, CMP #### [facility] [address] [address] [address] Sandra Castano IG % 0.3 % Normal 0.0-0.5 [facility] Comment on above: Performed By: #### L IPA, CMP #### [facility] [address] [address] [address] Sandra Castano LYMPH # 1.6 103/ul Normal 1.2-3.8 [facility] Comment on above: Performed By: #### L IPA, CMP #### [facility] [address] [address] [address] Sandra Castano Lymphocytes/100 WBC (Bld) 27.5 % Normal 20.5-60.0 [facility] Comment on above: Performed By: #### L IPA, CMP #### [facility] [address] [place] [address] Dr. Sandra Castano MANUAL DIFF REQ NO Normal [facility] Comment on above: Performed By: #### L IPA, CMP #### [facility] [address] [place] [address] Dr. Sandra Castano MCH (RBC) [Entitic mass] 29.2 pg Normal 26.7-34.0 [facility] Comment on above: Performed By: #### L IPA, CMP #### [facility] [address] [place] [address] Dr. Sandra Castano MCHC (RBC) [Mass/Vol] 32.6 g/dL Normal 29.9-35.2 [facility] Comment on above: Performed By: #### L IPA, CMP #### [facility] [address] [place] [address] Dr. Sandra Castano MCV (RBC) [Entitic vol] 89.7 fL Normal 81.0-99.0 [facility] Comment on above: Performed By: #### L IPA, CMP #### [facility] [address] [place] [address] Dr. Sandra Castano MONO # 0.4 103/ul Normal 0.3-0.8 [facility] Comment on above: Performed By: #### L IPA, CMP #### [facility] [address] [place] [address] Dr. Sandra Castano Monocytes/100 WBC (Bld) 6.6 % Normal 1.7-12.0 [facility] Comment on above: Performed By: #### L IPA, CMP #### [facility] [address] [place] [address] Dr. Sandra Castano NEUT # 3.7 103/ul Normal 1.4-6.5 [facility] Comment on above: Performed By: #### L IPA, CMP #### [facility] [address] [place] [address] Dr. Sandra Castano Neutrophils/100 WBC (Bld) 63.1 % Normal 43.0-75.0 [facility] Comment on above: Performed By: #### L IPA, CMP #### [facility] [address] [place] [address] Dr. Sandra Castano Platelet mean volume (Bld) [Entitic vol] 11.6 fL Normal 9.5-13.5 [facility] Comment on above: Performed By: #### L IPA, CMP #### [facility] [address] [place] [address] Dr. Sandra Castano PLT 256 103/ul Normal 150-450 [facility] Comment on above: Performed By: #### L IPA, CMP #### [facility] [address] [place] [address] Dr. Sandra Castano RBC 4.45 106/ul Normal 4.20-5.40 [facility] Comment on above: Performed By: #### L IPA, CMP #### [facility] [address] [place] [address] Dr. Sandra Castano WBC 5.9 103/ul Normal 4.0-11.0 [facility] Comment on above: Performed By: #### L IPA, CMP #### [facility] [address] [place] [address] Dr. Sandra Castano FERRITINon 01-13-2022 Ferritin [Mass/Vol] 108.0 ng/mL Normal 6.2-137.0 [facility] Comment on above: Performed By: #### C ALCULI #### [facility] [address] [place] [address] Dr. Sandra Castano IRON AND TIBCon 01-13-2022 % SATURATION 20.6 % Normal [facility] Comment on above: Performed By: #### C ALCULI #### [facility] [address] [place] [address] Dr. Sandra Castano Iron [Mass/Vol] 47.0 ug/dL Critically low 50.0-170.0 [facility] Comment on above: Performed By: #### C ALCULI #### [facility] [address] [place] [address] Dr. Sandra Castano TIBC DIRECT 228.0 ug/dL Critically low 250.0-450.0 [facility] Comment on above: Performed By: #### C ALCULI #### [facility] [address] [place] [address] Dr. Sandra Castano MAGNESIUMon 01-13-2022 Magnesium [Mass/Vol] 1.7 mg/dL Critically low 1.8-2.4 [facility] Comment on above: Performed By: #### C ALCULI #### [facility] [address] [place] [address] Dr. Sandra Castano PHOSPHORUSon 01-13-2022 Phosphate [Mass/Vol] 3.4 mg/dL Normal 2.6-4.7 [facility] Comment on above: Performed By: #### L IPA, CMP #### [facility] [address] [place] [address] Dr. Sandra Castano PROF 14(COMP METB)on 022 Albumin [Mass/Vol] 3.8 g/dL Normal 3.4-5.0 [facility] Comment on above: Performed By: #### C ALCULI #### [facility] [address] [place] [address] Dr. Sandra Castano Albumin/Globulin [Mass ratio] 1.1 {ratio} Normal [facility] Comment on above: Performed By: #### C ALCULI #### [facility] [address] [place] [address] Dr. Sandra Castano ALP [Catalytic activity/Vol] 78 U/L Normal 46-116 [facility] Comment on above: Performed By: #### C ALCULI #### [facility] [address] [address] [address] Sandra Castano ALT [Catalytic activity/Vol] 34 U/L Normal 14-59 [facility] Comment on above: Performed By: #### C ALCULI #### [facility] [address] [address] [address] Sandra Castano Anion gap [Moles/Vol] 10.8 mmol/L Normal [facility] Comment on above: Performed By: #### C ALCULI #### [facility] [address] [place] [address] Dr. Sandra Castano AST [Catalytic activity/Vol] 20 U/L Normal 15-37 [facility] Comment on above: Performed By: #### C ALCULI #### [facility] [address] [place] [address] Dr. Sandra Castano Bilirubin [Mass/Vol] 0.5 mg/dL Normal 0.2-1.0 [facility] Comment on above: Performed By: #### C ALCULI #### [facility] [address] [place] [address] Dr. Sandra Castano Calcium [Mass/Vol] 9.2 mg/dL Normal 8.5-10.1 [facility] Comment on above: Performed By: #### C ALCULI #### [facility] [address] [place] [address] Dr. Sandra Castano Chloride [Moles/Vol] 102 mmol/L Normal 98-107 [facility] Comment on above: Performed By: #### C ALCULI #### [facility] [address] [place] [address] Dr. Sandra Castano CO2 [Moles/Vol] 31.2 mmol/L Normal 21.0-32.0 [facility] Comment on above: Performed By: #### C ALCULI #### [facility] [address] [place] [address] Dr. Sandra Castano Creatinine [Mass/Vol] 0.78 mg/dL Normal 0.55-1.02 [facility] Comment on above: Performed By: #### C ALCULI #### [facility] [address] [address] [address] Sandra Castano EGFR-AF PUERTO RICAN >60 Normal >=60 [facility] Comment on above: Performed By: #### C ALCULI #### [facility] [address] [address] [address] Sandra Castano EGFR-NON AF PUERTO RICAN >60 Normal >=60 [facility] Comment on above: Performed By: #### C ALCULI #### [facility] [address] [address] [address] Sandra Castano Globulin (S) [Mass/Vol] 3.6 g/dL Normal [facility] Comment on above: Performed By: #### C ALCULI #### [facility] [address] [address] [address] Sandra Castano Glucose [Mass/Vol] 101 mg/dL Normal 74-106 [facility] Comment on above: Performed By: #### C ALCULI #### [facility] [address] [address] [address] Sandra Castano Potassium [Moles/Vol] 4.0 mmol/L Normal 3.5-5.1 [facility] Comment on above: Performed By: #### C ALCULI #### [facility] [address] [address] [address] Sandra Castano Protein [Mass/Vol] 7.4 g/dL Normal 6.4-8.2 [facility] Comment on above: Performed By: #### C ALCULI #### [facility] [address] [address] [address] Sandra Castano Sodium [Moles/Vol] 140 mmol/L Normal 136-145 [facility] Comment on above: Performed By: #### C ALCULI #### [facility] [address] [address] [address] Sandra Castano Urea nitrogen [Mass/Vol] 14.0 mg/dL Normal 7.0-18.0 [facility] Comment on above: Performed By: #### C ALCULI #### [facility] [address] [address] [address] Sandra Castano Urea nitrogen/Creatinine [Mass ratio] 17.9 mg/mg Normal [facility] Comment on above: Performed By: #### C ALCULI #### [facility] [address] [address] [address] Sandra Castano VIT B12 AND FOLATEon 022 Cobalamin (Vitamin B12) [Mass/Vol] 1475.0 pg/mL Critically high 193.0-986.0 [facility] Comment on above: Performed By: #### C ALCULI #### [facility] [address] [address] [address] Sandra Castano FOLATE 11.80 ng/mL Normal 8.60-58.90 [facility] Comment on above: Performed By: #### C ALCULI #### [facility] [address] [address] [address] Sandra Castano MG MAMM SCREEN 3D PENG CADon 12-03-2021 MG MAMM SCREEN 3D PENG CAD Patient: JASMIN CALVILLO Exam Date: 12/03/2021 : 1975 Gender:F Ordering : DR LUDY LAINEZ . Admission #: [id number] Family : Order #: [id number] CLICK HERE TO VIEW EXAM RADIOLOGY REPORT PROCEDURE: MAMMOGRAM SCREENING 3D BILATERAL CAD COMPARISON: MG MAMM SCREEN PENG W CAD, 10/18/2019. MG MAMM SCREEN 3D PENG CAD, 11/20/2020. MG MAMM PENG DIAG FU, 11/18/2019. INDICATIONS: Screening mammography Calculator Name NCI Breast Cancer Risk Assessment Tool 5 Year Breast Cancer Risk 0.80% Lifetime Breast Cancer Risk 8.40% Personal Breast Cancer No Personal Ovarian Cancer No Treatments None Family Cancers Father with prostate cancer at age 51; Grandfather-maternal with colon cancer at age 68. LOCATION: [facility] BREAST COMPOSITION: Scattered areas fibroglandular density. FINDINGS: DIAGNOSTIC CATEGORY 1--NEGATIVE. RIGHT BREAST: No significant suspicious finding. No significant change has occurred. LEFT BREAST: No significant suspicious finding. No significant change has occurred. RECOMMENDATIONS: ROUTINE MAMMOGRAM AND CLINICAL EVALUATION IN 12 MONTHS. PLEASE NOTE: A NORMAL MAMMOGRAM DOES NOT EXCLUDE THE POSSIBILITY OF BREAST CANCER. A CLINICALLY SUSPICIOUS PALPABLE LUMP SHOULD BE BIOPSIED. Dictated by: Etta Cedeño M.D. on 12/03/2021 at 12:37 Approved by: Etta Cedeño M.D. on 12/03/2021 at 12:49 Normal [facility] LOWER EXTREMITY JOINT SURVEY on 02-19-2021 LOWER EXTREMITY JOINT SURVEY [facility] Department of Radiology [address] [place] [id number] == Patient Name: JASMIN CALVILLO : 1975 Sex: F Age: Race: White Pt. 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 COMPARISON: None FINDINGS: 87.6 cm and the left lower extremity 88.4 cm. Complete loss of medial compartment joint space narrowing of the right knee with right genu varum. There is medial compartment joint space narrowing also noted of the left knee. Alignment of the left lower extremity is within normal limits. IMPRESSION: 1. 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 2. There is medial joint space narrowing also noted of the left knee. Normal alignment of the left lower extremity. 3. The left lower extremity is approximately 0.8 cm longer than the right lower extremity. Electronically signed: Dylon Duenas. Transcribed by: [email or web address], User Resident: Electronically Signed by: DYLON DUENAS @ 02/20/2021 12:06 PM Normal [facility] Comment on above: Order Comment: Evalu ate Vital Signs Date Time Vital Sign Value Performing Clinician Facility 09-04-2022 08:32-0400 Blood Pressure Location Romi Lue [facility] 09-04-2022 08:32-0400 Diastolic blood pressure 82 mm[Hg] Romi Lue [facility] 09-04-2022 08:32-0400 Heart rate 57 /min Romi Lue [facility] 09-04-2022 08:32-0400 Respiratory rate 16 /min Romi Lue [facility] 09-04-2022 08:32-0400 Systolic blood pressure 138 mm[Hg] Romi Lue [facility] 07-02-2022 09:14-0500 Blood Pressure Location Romi Lue [facility] 07-02-2022 09:14-0500 Diastolic blood pressure 78 mm[Hg] Romi Lue [facility] 07-02-2022 09:14-0500 Heart rate 68 /min Romi Lue [facility] 07-02-2022 09:14-0500 Respiratory rate 16 /min Romi Lue [facility] 07-02-2022 09:14-0500 Systolic blood pressure 124 mm[Hg] Romi Lue [facility] 03-24-2022 16:38-0400 Blood Pressure Location Miles Guevara [facility] 03-24-2022 16:38-0400 Diastolic blood pressure 78 mm[Hg] Miles Guevara [facility] 03-24-2022 16:38-0400 Heart rate 61 /min Miles Guevara [facility] 03-24-2022 16:38-0400 Mean blood pressure 95 mm[Hg] Miles Guevara [facility] 03-24-2022 16:38-0400 Respiratory rate 18 /min Miles Guevara [facility] 03-24-2022 16:38-0400 SaO2% (BldA) [Mass fraction] 98 % Miles Guevara [facility] 03-24-2022 16:38-0400 Systolic blood pressure 131 mm[Hg] Miles Guevara [facility] 03-24-2022 15:16-0400 Blood Pressure Location Miles Guevara [facility] 03-24-2022 15:16-0400 Diastolic blood pressure 75 mm[Hg] Miles Guevara [facility] 03-24-2022 15:16-0400 Heart rate 66 /min Miles Guevara [facility] 03-24-2022 15:16-0400 Mean blood pressure 96 mm[Hg] Miles Ismael [facility] 03-24-2022 15:16-0400 Respiratory rate 18 /min Miles Ismael [facility] 03-24-2022 15:16-0400 SaO2% (BldA) [Mass fraction] 98 % Miles Guevara [facility] 03-24-2022 15:16-0400 Systolic blood pressure 138 mm[Hg] Miles Guevara [facility] 03-24-2022 13:37-0400 Blood Pressure Location Miles Guevara [facility] 03-24-2022 13:37-0400 Diastolic blood pressure 74 mm[Hg] Miles Ismael [facility] 03-24-2022 13:37-0400 Heart rate 65 /min Miles Guevara [facility] 03-24-2022 13:37-0400 Mean blood pressure 106 mm[Hg] Miles Ismael [facility] 03-24-2022 13:37-0400 Respiratory rate 18 /min Miles Ismael [facility] 03-24-2022 13:37-0400 SaO2% (BldA) [Mass fraction] 100 % Miles Ismael [facility] 03-24-2022 13:37-0400 Systolic blood pressure 171 mm[Hg] Miles Guevara [facility] 03-24-2022 13:30-0400 Body temperature 98.24 [degF] Miles Guevara [facility] 03-24-2022 13:30-0400 Respiratory rate 10 /min Miles Guevara [facility] 03-24-2022 13:15-0400 Respiratory rate 11 /min Miles Ismael [facility] 03-24-2022 13:00-0400 Respiratory rate 13 /min Miles Ismael [facility] 03-24-2022 12:30-0400 Body temperature 98.06 [degF] Miles Guevara [facility] 03-24-2022 08:21-0400 Body temperature 97.7 [degF] Miles Ismael [facility] 03-24-2022 08:21-0400 Heart rate 72 /min Miles Guevara [facility] Encounters Encounter Date Encounter Type Care Provider Facility Start: 06-10-2023 ambulatory Romi M. Lue Facility:[facility] Start: 12-03-2022 End: 12-04-2022 ambulatory Romi M. Lue Facility:[facility] Start: 10-24-2022 End: 10-25-2022 ambulatory DISASSEMBLER Radha L Felipa Facility:[facility] Start: 10-24-2022 End: 10-24-2022 Lab Drop off Radha L Felipa [facility] Start: 10-20-2022 ambulatory Romi M. Lue Facility:[facility]age Start: 10-08-2022 ambulatory Romi Lue Facility:[facility] GREC[facility] Start: 09-04-2022 End: 09-05-2022 ambulatory ROMI M LUE . Facility: Start: 09-04-2022 End: 09-05-2022 ambulatory Romi M. Lue Facility:[facility] Start: 09-04-2022 End: 09-04-2022 Patient encounter procedure Romi M. Lue [facility] Start: 08-30-2022 End: 08-31-2022 ambulatory ROMI M LUE . Facility: Start: 07-30-2022 End: 07-31-2022 ambulatory ROMI SARMIENTO . Facility:[facility] Start: 07-24-2022 Encounter for preprocedural laboratory examination ROMI SARMIENTO . [facility] Start: 07-18-2022 End: 07-19-2022 ambulatory ERICK KRAFT Facility:[facility] Start: 07-18-2022 End: 07-19-2022 Encounter for preprocedural laboratory examination ERICK KRAFT Facility:[facility] Start: 07-10-2022 End: 07-11-[address] ETTA CEEDÑO Facility:[facility] Start: 07-02-2022 End: 07-03-2022 ambulatory Romi Sarmiento Facility:[facility] Start: 07-02-2022 End: 07-02-2022 Patient encounter procedure Romi Sarmiento [facility] Start: 06-30-2022 End: 07-01-[address] ETTA CEDEÑO Facility:[facility] Start: 06-13-2022 End: 06-14-2022 ambulatory Romi Sarmiento Facility: [facility] Start: 06-13-2022 End: 06-13-2022 Patient encounter procedure Romi Sarmiento [facility] Start: 06-06-2022 End: 06-07-[address] ETTA CEDEÑO Facility:[facility] Start: 05-27-2022 End: 05-28-[address] CINDI Jerry Facility:[facility] Start: 05-07-2022 End: 05-08-[address] DOCTOR PALACIOS Facility:[facility] Start: 03-24-2022 End: 03-24-2022 Admission to same day surgery center Miles Guevara [facility] Start: 01-13-2022 End: 01-14-2022 ambulatory MARY SOTO Facility:[facility] Start: 12-03-2021 End: 12-04-[address] LUDY LAINEZ . Facility:[facility] Procedures Date Procedure Procedure Detail Performing Clinician Start: 07-30-2022 Lipoatrophy (disorder) Radha Leo Start: 06-01-1992 History of operative procedure on knee Miles Guevara Esophagogastrostomy, antesternal or antethoracic Miles Ismael Extraction of wisdom tooth M nohemy Guevara H/O: tubal ligation Miles Guevara Hand tendon operation Michae mike Guevara Immunizations Immunization Date Immunization Notes Care Provider [facility] 04-28-2022 influenza virus vaccine, unspecified formulation Romi Lue [facility] 04-28-2022 SARS-CoV-2 (COVID-19 ) [id number] Romi Lue [facility] 05-21-2021 SARS-CoV-2 (COVID-19 ) mRNA BNT-162b2 vax Romi Lue [facility] 03-08-2021 influenza virus vaccine, unspecified formulation Romi Lue [facility] 09-20-2020 SARS-CoV-2 (COVID-19 ) mRNA BNT-162b2 vax Romi Lue [facility] 08-30-2020 SARS-CoV-2 (COVID-19 ) mRNA BNT-162b2 vax Romi Lue [facility] 02-08-2020 influenza virus vaccine, unspecified formulation Romi Lue [facility] 02-15-2019 influenza virus vaccine, unspecified formulation Romi Lue [facility] 01-29-2019 influenza virus vaccine, unspecified formulation Romi Lue [facility] 03-06-2018 influenza virus vaccine, unspecified formulation Romi Lue [facility] 02-26-2015 influenza virus vaccine, unspecified formulation Romi Lue [facility] 02-25-2014 influenza virus vaccine, unspecified formulation Romi Lue [facility] 04-24-2013 influenza virus vaccine, unspecified formulation Romi Lue [facility] Payers Date Payer Category Payer Unknown [id number] .. [id number] 1975 Unknown [id number] .. [id number] 1975 Unknown [id number] .. [id number] 1975 Unknown [id number] ..[id number] 0.1.491774.3.579.2.593 1975 Unknown [id number] ..[id number] 0.1.627826.3.579.2.59 1975 Unknown [id number] ..[id number] 0.1.762072.3.579.2.593 1975 Unknown [id number] ..[id number] 0.1.157784.3.579.2.593 1975 Unknown [id number] 2.16.84 0.1.708987.3.579.2.593 1975 Unknown [id number] 2.16.84 0.1.558622.3.579.2.593 1975 Unknown [id number] 2.16.84 0.1.400145.3.579.2.593 1975 Unknown [id number] 2.16.84 0.1.602435.3.579.2.593 1975 Unknown [id number] 2.16.8 40.1.843568.3.579.2.727 1975 Unknown [id number] 2.16.8 40.1.503218.3.579.2.727 1975 Unknown [id number] 2.16.8 40.1.094651.3.579.2.727 1975 Unknown [id number] 2.16.8 40.1.485978.3.579.2.727 1975 Unknown [id number] 2.16.8 40.1.352982.3.579.2.727 1975 Unknown [id number] 2.16.8 40.1.920540.3.579.2.727 1975 Unknown [id number] 2.16.8 40.1.494269.3.579.2.727 1975 Unknown [id number] 2.16.8 40.1.349018.3.579.2.727 1975 Unknown [id number] 2.16.8 40.1.438183.3.579.2.727 1975 Unknown [id number] 2.16.8 40.1.632131.3.579.2.727 1959 Unknown [id number] 1960 Unknown [id number] Self-pay Self Pay [id number] Social History Date Type Detail Facility Tobacco smoking stat us NHIS Unknown if ever smoked [facility] Start: 1975 Sex Assigned At Female [facility] Tobacco smoking status No Smokin g Status Entered [facility] Sex Assigned At Female [facility] Start: 06-13-2022 End: 10-24-2022 Tobacco smoking status Never smoked tobacco (finding) [facility] Tobacco smoking status Never [facility] Medical Equipment Procedure Code Equipment Code Equipment Origin al Text Equipment Identifier Dates ORIF, fracture, hand FDA Start: 09-18-2017 ORIF, fracture, hand 2.0mm titanium 6 hole plate FDA Start: 09-18-2017 ORIF, fracture, hand 2.0mm titanium 6 hole plate FDA Start: 09-18-2017 ORIF, fracture, hand 2.0mm titanium 6 hole plate FDA Start: 09-18-2017 ORIF, fracture, hand 2.0mm titanium 6 hole plate FDA Start: 09-18-2017 ORIF, fracture, hand 2.0mm titanium 6 hole plate FDA Start: 09-18-2017 ORIF, fracture, hand 2.0mm titanium 6 hole plate FDA Start: 09-18-2017 KNEE TOTAL ARTHROPLASTY Miles Guevara DO 03/24/22 Non Biological Knee R {[id number] FDA Start: 03-24-2022 Goals Date Patient Goal Desired Activity /State Functional Status Date Assessment Result Facility 09-04-2022 Functional Status N/A [facility] 07-02-2022 Functional Status N/A [facility] 06-13-2022 Functional Status N/A [facility] Clinical Notes 03-24-2022 to 09-04-2022 Note Date & Type Note Facility 09-04-2022 Hospital Discharg e instructions Patient Education 09/04/2022 09:31:21 Kidney Stones, [id number] Kidney Stones Kidney stones are rock-like masses that form inside of the kidneys. Kidneys are organs that make pee (urine). A kidney stone may move into other parts of the urinary tract, including: The tubes that connect the kidneys to the bladder (ureters). The bladder. The tube that carries urine out of the body (urethra). Kidney stones can cause very bad pain and can block the flow of pee. The stone usually leaves your body (passes) through your pee. You may need to have a doctor take out the stone. What are the causes? Kidney stones may be caused by: A condition in which certain glands make too much parathyroid hormone (primary hyperparathyroidism). A buildup of a type of crystals in the bladder made of a chemical called uric acid. The body makes uric acid when you eat certain foods. Narrowing (stricture) of one or both of the ureters. A kidney blockage that you were born with. Past surgery on the kidney or the ureters, such as gastric bypass surgery. What increases the risk? You are more likely to develop this condition if: You have had a kidney stone in the past. You have a family history of kidney stones. You do not drink enough water. You eat a diet that is high in protein, salt (sodium), or sugar. You are overweight or very overweight (obese). What are the signs or symptoms? Symptoms of a kidney stone may include: Pain in the side of the belly, right below the ribs (flank pain). Pain usually spreads (radiates) to the groin. Needing to pee often or right away (urgently). Pain when going pee (urinating). Blood in your pee (hematuria). Feeling like you may vomit (nauseous). Vomiting. Fever and chills. How is this treated? Treatment depends on the size, location, and makeup of the kidney stones. The stones will often pass out of the body through peeing. You may need to: Drink more fluid to help pass the stone. In some cases, you may be given fluids through an IV tube put into one of your veins at the hospital. Take medicine for pain. Make changes in your diet to help keep kidney stones from coming back. Sometimes, medical procedures are needed to remove a kidney stone. This may involve: A procedure to break up kidney stones using a beam of light (laser) or shock waves. Surgery to remove the kidney stones. Follow these instructions at home: Medicines Take rvzp-nke-ilygtam and prescription medicines only as told by your doctor. Ask your doctor if the medicine prescribed to you requires you to avoid driving or using heavy machinery. Eating and drinking Drink enough fluid to keep your pee pale yellow. You may be told to drink at least 8 10 glasses of water each day. This will help you pass the stone. If told by your doctor, change your diet. This may include: ?Limiting how much salt you eat. ?Eating more fruits and vegetables. ?Limiting how much meat, poultry, fish, and eggs you eat. Follow instructions from your doctor about eating or drinking restrictions. General instructions Collect pee samples as told by your doctor. You may need to collect a pee sample: ?24 hours after a stone comes out. ?8 12 weeks after a stone comes out, and every 6 12 months after that. Strain your pee every time you pee (urinate), for as long as told. Use the strainer that your doctor recommends. Do not throw out the stone. Keep it so that it can be tested by your doctor. Keep all follow-up visits as told by your doctor. This is important. You may need follow-up tests. How is this prevented? To prevent another kidney stone: Drink enough fluid to keep your pee pale yellow. This is the best way to prevent kidney stones. Eat healthy foods. Avoid certain foods as told by your doctor. You may be told to eat less protein. Stay at a healthy weight. Where to find more information National Kidney Foundation (NKF): www.kidney.org U[employer] (UCF): www.urologyhealth.org Contact a doctor if: You have pain that gets worse or does not get better with medicine. Get help right away if: You have a fever or chills. You get very bad pain. You get new pain in your belly (abdomen). You pass out (faint). You cannot pee. Summary Kidney stones are rock-like masses that form inside of the kidneys. Kidney stones can cause very bad pain and can block the flow of pee. The stones will often pass out of the body through peeing. Drink enough fluid to keep your pee pale yellow. This information is not intended to replace advice given to you by your health care provider. Make sure you discuss any questions you have with your health care provider. Document Released: 11/03/2008 Document Revised: 10/04/2019 Document Reviewed: 10/04/2019 [employer] Patient Education 2019 [employer]. Follow Up Care 08/01/2022 14:22:05 With:Torsten DIAMOND, KT Jolley, U[facility] Address: When: Unknown [facility] 07-02-2022 Hospital Discharg e instructions Patient Education 07/02/2022 07:55:05 Dietary Guidelines to Help Prevent Kidney Stones Dietary Guidelines to Help Prevent Kidney Stones Kidney stones are deposits of minerals and salts that form inside your kidneys. Your risk of developing kidney stones may be greater depending on your diet, your lifestyle, the medicines you take, and whether you have certain medical conditions. Most people can reduce their chances of developing kidney stones by following the instructions below. Depending on your overall health and the type of kidney stones you tend to develop, your dietitian may give you more specific instructions. What are tips for following this plan? Reading food labels Choose foods with no salt added or low-salt labels. Limit your sodium intake to less than 1500 mg per day. Choose foods with calcium for each meal and snack. Try to eat about 300 mg of calcium at each meal. Foods that contain 200 500 mg of calcium per serving include: ?8 oz (237 ml) of milk, fortified nondairy milk, and fortified fruit juice. ?8 oz (237 ml) of kefir, yogurt, and soy yogurt. ?4 oz (118 ml) of tofu. ?1 oz of cheese. ?1 cup (300 g) of dried figs. ?1 cup (91 g) of cooked broccoli. ?1 3 oz can of sardines or mackerel. Most people need 1000 to 1500 mg of calcium each day. Talk to your dietitian about how much calcium is recommended for you. Shopping Buy plenty of fresh fruits and vegetables. Most people do not need to avoid fruits and vegetables, even if they contain nutrients that may contribute to kidney stones. When shopping for convenience foods, choose: ?Whole pieces of fruit. ?Premade salads with dressing on the side. ?Low-fat fruit and yogurt smoothies. Avoid buying frozen meals or prepared deli foods. Look for foods with live cultures, such as yogurt and kefir. Cooking Do not add salt to food when cooking. Place a salt shaker on the table and allow each person to add his or her own salt to taste. Use vegetable protein, such as beans, textured vegetable protein (TVP), or tofu instead of meat in pasta, casseroles, and soups. Meal planning Eat less salt, if told by your dietitian. To do this: ?Avoid eating processed or premade food. ?Avoid eating fast food. Eat less animal protein, including cheese, meat, poultry, or fish, if told by your dietitian. To do this: ?Limit the number of times you have meat, poultry, fish, or cheese each week. Eat a diet free of meat at least 2 days a week. ?Eat only one serving each day of meat, poultry, fish, or seafood. ?When you prepare animal protein, cut pieces into small portion sizes. For most meat and fish, one serving is about the size of one deck of cards. Eat at least 5 servings of fresh fruits and vegetables each day. To do this: ?Keep fruits and vegetables on hand for snacks. ?Eat 1 piece of fruit or a handful of berries with breakfast. ?Have a salad and fruit at lunch. ?Have two kinds of vegetables at dinner. Limit foods that are high in a substance called oxalate. These include: ?Spinach. ?Rhubarb. ?Beets. ?Potato chips and lao fries. ?Nuts. If you regularly take a diuretic medicine, make sure to eat at least 1 2 fruits or vegetables high in potassium each day. These include: ?Avocado. ?Banana. ?Claiborne, prune, carrot, or tomato juice. ?Baked potato. ?Cabbage. ?Beans and split peas. General instructions Drink enough fluid to keep your urine clear or pale yellow. This is the most important thing you can do. Talk to your health care provider and dietitian about taking daily supplements. Depending on your health and the cause of your kidney stones, you may be advised: ?Not to take supplements with vitamin C. ?To take a calcium supplement. ?To take a daily probiotic supplement. ?To take other supplements such as magnesium, fish oil, or vitamin B6. Take all medicines and supplements as told by your health care provider. Limit alcohol intake to no more than 1 drink a day for non women and 2 drinks a day for men. One drink equals 12 oz of beer, 5 oz of wine, or 1 oz of hard liquor. Lose weight if told by your health care provider. Work with your dietitian to find strategies and an eating plan that works best for you. What foods are not recommended? Limit your intake of the following foods, or as told by your dietitian. Talk to your dietitian about specific foods you should avoid based on the type of kidney stones and your overall health. Grains Breads. Bagels. Rolls. Baked goods. Salted crackers. Cereal. Pasta. Vegetables Spinach. Rhubarb. Beets. Canned vegetables. Pickles. Olives. Meats and other protein foods Nuts. Nut butters. Large portions of meat, poultry, or fish. Salted or cured meats. Deli meats. Hot dogs. Sausages. Dairy Cheese. Beverages Regular soft drinks. Regular vegetable juice. Seasonings and other foods Seasoning blends with salt. Salad dressings. Canned soups. Soy sauce. Ketchup. Barbecue sauce. Canned pasta sauce. Casseroles. Pizza. Lasagna. Frozen meals. Potato chips. Belgian fries. Summary You can reduce your risk of kidney stones by making changes to your diet. The most important thing you can do is drink enough fluid. You should drink enough fluid to keep your urine clear or pale yellow. Ask your health care provider or dietitian how much protein from animal sources you should eat each day, and also how much salt and calcium you should have each day. This information is not intended to replace advice given to you by your health care provider. Make sure you discuss any questions you have with your health care provider. Document Released: 09/12/2011 Document Revised: 09/07/2019 Document Reviewed: 04/28/2017 [employer]INFO Patient Education 2020 [employer]. Follow Up Care 06/13/2022 11:44:22 With:Torsten DIAMOND, KT Jolley, URO Address: When: Unknown [facility] 06-13-2022 Hospital Discharg e instructions Patient Education 06/13/2022 08:44:44 Dietary Guidelines to Help Prevent Kidney Stones Dietary Guidelines to Help Prevent Kidney Stones Kidney stones are deposits of minerals and salts that form inside your kidneys. Your risk of developing kidney stones may be greater depending on your diet, your lifestyle, the medicines you take, and whether you have certain medical conditions. Most people can reduce their chances of developing kidney stones by following the instructions below. Depending on your overall health and the type of kidney stones you tend to develop, your dietitian may give you more specific instructions. What are tips for following this plan? Reading food labels Choose foods with no salt added or low-salt labels. Limit your sodium intake to less than 1500 mg per day. Choose foods with calcium for each meal and snack. Try to eat about 300 mg of calcium at each meal. Foods that contain 200 500 mg of calcium per serving include: ?8 oz (237 ml) of milk, fortified nondairy milk, and fortified fruit juice. ?8 oz (237 ml) of kefir, yogurt, and soy yogurt. ?4 oz (118 ml) of tofu. ?1 oz of cheese. ?1 cup (300 g) of dried figs. ?1 cup (91 g) of cooked broccoli. ?1 3 oz can of sardines or mackerel. Most people need 1000 to 1500 mg of calcium each day. Talk to your dietitian about how much calcium is recommended for you. Shopping Buy plenty of fresh fruits and vegetables. Most people do not need to avoid fruits and vegetables, even if they contain nutrients that may contribute to kidney stones. When shopping for convenience foods, choose: ?Whole pieces of fruit. ?Premade salads with dressing on the side. ?Low-fat fruit and yogurt smoothies. Avoid buying frozen meals or prepared deli foods. Look for foods with live cultures, such as yogurt and kefir. Cooking Do not add salt to food when cooking. Place a salt shaker on the table and allow each person to add his or her own salt to taste. Use vegetable protein, such as beans, textured vegetable protein (TVP), or tofu instead of meat in pasta, casseroles, and soups. Meal planning Eat less salt, if told by your dietitian. To do this: ?Avoid eating processed or premade food. ?Avoid eating fast food. Eat less animal protein, including cheese, meat, poultry, or fish, if told by your dietitian. To do this: ?Limit the number of times you have meat, poultry, fish, or cheese each week. Eat a diet free of meat at least 2 days a week. ?Eat only one serving each day of meat, poultry, fish, or seafood. ?When you prepare animal protein, cut pieces into small portion sizes. For most meat and fish, one serving is about the size of one deck of cards. Eat at least 5 servings of fresh fruits and vegetables each day. To do this: ?Keep fruits and vegetables on hand for snacks. ?Eat 1 piece of fruit or a handful of berries with breakfast. ?Have a salad and fruit at lunch. ?Have two kinds of vegetables at dinner. Limit foods that are high in a substance called oxalate. These include: ?Spinach. ?Rhubarb. ?Beets. ?Potato chips and lao fries. ?Nuts. If you regularly take a diuretic medicine, make sure to eat at least 1 2 fruits or vegetables high in potassium each day. These include: ?Avocado. ?Banana. ?Claiborne, prune, carrot, or tomato juice. ?Baked potato. ?Cabbage. ?Beans and split peas. General instructions Drink enough fluid to keep your urine clear or pale yellow. This is the most important thing you can do. Talk to your health care provider and dietitian about taking daily supplements. Depending on your health and the cause of your kidney stones, you may be advised: ?Not to take supplements with vitamin C. ?To take a calcium supplement. ?To take a daily probiotic supplement. ?To take other supplements such as magnesium, fish oil, or vitamin B6. Take all medicines and supplements as told by your health care provider. Limit alcohol intake to no more than 1 drink a day for non women and 2 drinks a day for men. One drink equals 12 oz of beer, 5 oz of wine, or 1 oz of hard liquor. Lose weight if told by your health care provider. Work with your dietitian to find strategies and an eating plan that works best for you. What foods are not recommended? Limit your intake of the following foods, or as told by your dietitian. Talk to your dietitian about specific foods you should avoid based on the type of kidney stones and your overall health. Grains Breads. Bagels. Rolls. Baked goods. Salted crackers. Cereal. Pasta. Vegetables Spinach. Rhubarb. Beets. Canned vegetables. Pickles. Olives. Meats and other protein foods Nuts. Nut butters. Large portions of meat, poultry, or fish. Salted or cured meats. Deli meats. Hot dogs. Sausages. Dairy Cheese. Beverages Regular soft drinks. Regular vegetable juice. Seasonings and other foods Seasoning blends with salt. Salad dressings. Canned soups. Soy sauce. Ketchup. Barbecue sauce. Canned pasta sauce. Casseroles. Pizza. Lasagna. Frozen meals. Potato chips. Belgian fries. Summary You can reduce your risk of kidney stones by making changes to your diet. The most important thing you can do is drink enough fluid. You should drink enough fluid to keep your urine clear or pale yellow. Ask your health care provider or dietitian how much protein from animal sources you should eat each day, and also how much salt and calcium you should have each day. This information is not intended to replace advice given to you by your health care provider. Make sure you discuss any questions you have with your health care provider. Document Released: 09/12/2011 Document Revised: 09/07/2019 Document Reviewed: 04/28/2017 4INFO Patient Education 2020 [employer]. Follow Up Care 05/29/2022 15:18:35 With:Torsten DIAMOND, KT Jolley, URO Address: When: Unknown [facility] 03-24-2022 Hospital Discharg e instructions Patient Education 03/24/2022 12:38:17 How to Use an Incentive Spirometer How To Use an Incentive Spirometer An incentive spirometer is a tool that measures how well you are filling your lungs with each breath. Learning to take long, deep breaths using this tool can help you keep your lungs clear and active. This may help to reverse or lessen your chance of developing breathing (pulmonary) problems, especially infection. You may be asked to use a spirometer: After a surgery. If you have a lung problem or a history of smoking. After a long period of time when you have been unable to move or be active. If the spirometer includes an indicator to show the highest number that you have reached, your health care provider or respiratory therapist will help you set a goal. Keep a list (log) of your progress as told by your health care provider. What are the risks? Breathing too quickly may cause dizziness or cause you to pass out. Take your time so you do not get dizzy or light-headed. If you are in pain, you may need to take pain medicine before doing incentive spirometry. It is harder to take a deep breath if you are having pain. How to use your incentive spirometer 1.Sit up on the edge of your bed or on a chair. 2.Hold the incentive spirometer so that it is in an upright position. 3.Before you use the spirometer, breathe out normally. 4.Place the mouthpiece in your mouth. Make sure your lips are closed tightly around it. 5.Breathe in slowly and as deeply as you can through your mouth, causing the piston or the ball to rise toward the top of the chamber. 6.Hold your breath for 3 5 seconds, or for as long as possible. If the spirometer includes a motor coach bus driver indicator, use this to guide you in breathing. Slow down your breathing if the indicator goes above the marked areas. 7.Remove the mouthpiece from your mouth and breathe out normally. The piston or ball will return to the bottom of the chamber. 8.Rest for a few seconds, then repeat the steps 10 or more times. Take your time and take a few normal breaths between deep breaths so that you do not get dizzy or light-headed. Do this every 1 2 hours when you are awake. 9.If the spirometer includes a goal marker to show the highest number you have reached (best effort), use this as a goal to work toward during each repetition. 10.After each set of 10 deep breaths, cough a few times. This will help to make sure that your lungs are clear. If you have an incision on your chest or abdomen from surgery, place a pillow or a rolled-up towel firmly against the incision when you cough. This can help to reduce pain from coughing. General tips When you become able to get out of bed, walk around often and continue to cough to help clear your lungs. Keep using the incentive spirometer until your health care provider says it is okay to stop using it. If you have been in the hospital, you may be told to keep using the spirometer at home. Contact a health care provider if: You are having difficulty using the spirometer. You have trouble using the spirometer as often as instructed. Your pain medicine is not giving enough relief for you to use the spirometer as told. You have a fever. You develop shortness of breath. Get help right away if: You develop a cough with bloody mucus from the lungs (bloody sputum). You have fluid or blood coming from an incision site after you cough. Summary An incentive spirometer is a tool that can help you learn to take long, deep breaths to keep your lungs clear and active. You may be asked to use a spirometer after a surgery, if you have a lung problem or a history of smoking, or if you have been inactive for a long period of time. Use your incentive spirometer as instructed every 1 2 hours while you are awake. If you have an incision on your chest or abdomen, place a pillow or a rolled-up towel firmly against your incision when you cough. This will help to reduce pain. This information is not intended to replace advice given to you by your health care provider. Make sure you discuss any questions you have with your health care provider. Document Released: 09/28/2007 Document Revised: 06/10/2018 Document Reviewed: 03/31/2018 4INFO Patient Education 2020 [employer]. 03/24/2022 12:38:17 Post Op Patient Instructions - FT (Custom) 03/22/2022 10:51:56 Guevara - Total Knee Arthroplasty (CUSTOM) [place], [place] [facility] DISCHARGE INSTRUCTIONS TOTAL KNEE ARTHROPLASTY INCISION CARE: Mepilex dressing can get wet with showers. Please remove 10 days after surgery per instruction sheet. If nany present, please coordinate removal 21 days after surgery with office staff. Please notify the office if any increase in redness, tenderness, drainage, fever, or wound separation is noted beyond this point. Compression stockings may be helpful if any significant or uncomfortable swelling in the legs is noted postoperatively. Use and removal instructions should be given by physical therapy. If the swelling is below the knee, knee high compression stockings may suffice. If this does cause swelling into the thigh region, waist high compression stockings may be beneficial as well. These can be obtained from most pharmacies, or can be obtained from the hospital or through Home Health. The mild grade compression stockings are best used initially. MEDICATIONS: You may resume your home medications at the time of discharge. Aspirin 325 mg EC oral once a day for 4 weeks for blood clot prevention with meals. Please notify your doctor if you have a stomach sensitivity to Aspirin or history of previous stomach ulcers. Pain medication has been prescribed as well. You may continue to use the pain medication every four hours as needed. Any narcotic pain medication can cause side effects including stomach upset, constipation, or light-headedness. You should not drive or operate machinery, or use alcohol while using the narcotic pain medication. You should not use other pain medications with this prescription pain medication unless further directed by your physician. PHYSICAL THERAPY: Continue the range of motion and strengthening exercises initiated in Physical Therapy in the hospital. [facility] Discharge Instructs for TKAPage 2 Physical Therapy Cont. Continue weight bearing, as ordered, to the operated knee for four to six weeks as directed in Physical Therapy, or until your strength is improved and Physical Therapy will then allow you to progress to full weight. This will be with the use of a walker or crutches initially. After four or six weeks you may then progress to the use of one crutch, or a cane. A quad-cane is preferred as this is more stable. Physical therapy as begun in the hospital will continue at home, possible with the assistant manager retail of Home Health Physical Therapy or in the hospital as an outpatient. When you have become independent with the physical therapy program, this will then be discontinued as a supervised program and you will be instructed to continue the physical therapy exercises at home. Your exercises are newman to successful rehabilitation. You should gain full extension first, hopefully before hospital discharge, then continue to do the exercises to maintain this, and gain 90 degrees flexion by one month post-op. Do the exercises daily, twice if preferred. DRIVING: Please do not drive for 4-6 weeks pending therapy progress. 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 It is therefore advised not to drive until after your first office visit following surgery FOLLOW-UP OFFICE VISIT: Miles Guevara DO [facility] [address] [place] [id number] Reviewed: 4-08 Follow Up Care 02/13/2022 09:46:16 With:Miles Guevara Address: [address] [place] [address]- Business (1) When: Unknown Comments:Keep scheduled appointment [facility] 03-24-2022 Evaluation + Plan note Extrac mulu from: Title:Post-anesthesia - General Author:Ashvin Gipson DO Date:03/24/22 Plan Transfer/ Discharge: Condition stable. Extracted from: Title:Pre-anesthesia - Adult Author:Ashvin Bartlett Jr., DO Date:03/24/22 Plan [place] [employer] Anesthesiologists (ASA) physical status classification: Class II. Anesthetic Preoperative Plan Anesthesia: General. , Regional Adductor canal block. Anesthetic plan, risks, benefits, and alternatives discussed with the patient and/or family. Patient verbalized understanding. Adverse reactions, complications, and alternatives discujssed. Consent signed and on chart.. [facility] Future App[facility]ments Appointment Date:07/02/2022 09:30:00 AM Scheduled Provider:Romi Sarmiento MD Location:[facility] Appointment Type:URO Office Visit [facility] Evaluation + Plan note Future Appointments Appointment Date:10/20/2022 03:30:00 PM Scheduled Provider:Romi Sarmiento MD Location:[facility] Appointment Type:URO Video Visit Diagnostic Tests Pending * PTH Intact 09/04/22 * Uric Acid 09/04/22 [facility] Evaluation + Plan note Future Appointments Appointment Date:12/03/2022 08:30:00 AM Scheduled Provider:Romi Sarmiento MD Location:[facility] Appointment Type:URO Office Visit Diagnostic Tests Pending * PAP [id number] w/ HPV and Genotype rflx [facility]24/22 [facility] N[facility] No data available for this section [facility] No data available for this section [facility] No data available for this section [facility] Assessments No Assessments Information Available Summary Purpose Family History No Family History Records FoundNo Family History Records FoundNo Family History Records Found Advance Directives No Advanced Directives Records FoundNo Advanced Directives Records FoundNo Advanced Directives Records Found Additional Source Comments INFORMATION SOURCE (unrecogn ized section and content) DATE CREATED AUTHOR 02/21/2021 [facility] DATE CREATED AUTHOR AUTHOR'S ORGANIZ ATION 09/14/2022 [facility] DATE CREATED AUTHOR AUTHOR'S ORGANIZ ATION 05/19/2023 [facility] Patient Care team informatio n (unrecognized section and content) Personnel Name: LUDY LAINEZ MD Address: Address: [address] [place] [address] Personnel Name: LUDY LAINEZ MD Address: Address: [address] [place] [address] Personnel Name: LUDY LAINEZ MD Address: Address: [address] [place] [address] Personnel Name: LUDY LAINEZ MD Address: Address: [address] [place] [address] Personnel Name: Radha Farley Address: Address: [address] [place] [address]- FOR RECORDS PERTAINING TO PATIENTS WHO ARE OR HAVE BEEN ENROLLED IN A CHEMICAL DEPENDENCY/SUBSTANCEABUSE PROGRAM, SOME INFORMATION MAY BE OMITTED. This clinical summary was aggregated from multiple sources. Caution should be exercised in using it in the provision of clinical care. This summary normalizes information from multiple sources, and as a consequence, information in this document may materially change the coding, format and clinical context of patient data. In addition, data may be omitted in some cases. CLINICAL DECISIONS SHOULD BE BASED ON THE PRIMARY CLINICAL RECORDS. [facility] [email or web address] [facility]. provides no warranty or guarantee of the accuracy or completeness of information in this document.
[2023-05-21 10:43] LABS: Percent Iron Saturation 26.7 %
== END 2023-05-21 09:57 | disposition home or self-care (01) ==
PROVIDERS: PCP Nurse Practitioner
DX: K90.9 Intestinal malabsorption, unspecified (principal); Z98.84 Bariatric surgery status; R53.83 Other fatigue; D50.9 Iron deficiency anemia, unspecified; D64.9 Anemia, unspecified; E55.9 Vitamin D deficiency, unspecified; E53.8 Deficiency of other specified B group vitamins; E51.9 Thiamine deficiency, unspecified
CPT/HCPCS: 36415; 82728; 83540; 83550; 85025

== ENCOUNTER 2023-09-02 13:45 | Emergency (ER) | payer OTHER, SELFPAY ==
[2023-09-02 13:50] VITALS: BP 159/78; PULSE 65; TEMP 36.7; O2SAT 100; BMI 24.1
--- NOTE | 2023-09-02 13:56 | ED_ITS ---
HPI - Abdominal Pain General Chief Complaint: Abdominal Pain Stated Complaint: ABDOMINAL PAIN Time Seen by Provider: 09/02/23 13:46 Source: patient Mode of arrival: walk-in Limitations: no limitations History of Present Illness HPI narrative: Patient is a 47-year-old female who presents to the emergency department for a 2-day history of pain in the left upper quadrant Without radiation. She states she has a history of kidney stones and had fairly recent x-rays showing stones in the kidneys but does not believe this pain is similar. She had a gastric bypass 2 years ago and this is her primary concern. She has had no fevers. She has had some dry heaving but is not actively vomiting. She has not had any diarrhea or difficulty moving her bowels. No urinary symptoms. She has had her tubes tied, she is not concerned for . She denies any other flulike illness. Related Data Previous Rx's ?Medication ?Instructions ?Recorded ciprofloxacin HCl 500 mg tablet 500 mg PO Q12H 10 days #20 tabs 09/02/23 hydrocodone 5 mg-acetaminophen 325 1 tab PO Q6H PRN pain 2 days #8 09/02/23 mg tablet tabs hyoscyamine sulfate 0.125 mg 0.125 mg PO Q6H PRN abdominal pain 09/02/23 tablet (Levsin) #12 tabs metronidazole 500 mg tablet 500 mg PO Q12H 10 days #20 tabs 09/02/23 ondansetron 4 mg disintegrating 4 mg PO Q6H PRN nausea and 09/02/23 tablet vomiting #12 tabs Allergies Allergy/AdvReac Type Severity Reaction Status Date / Time No Known Drug Allergies Allergy Verified 09/02/23 13:50 Review of Systems ROS Constitutional Denies: fever or chills Ears, nose, mouth, and throat Denies: throat pain or nasal congestion Respiratory Denies: shortness of breath Gastrointestinal Reports: abdominal pain, nausea and vomiting; Denies: diarrhea Genitourinary Denies: painful urination Musculoskeletal Denies: back pain Integumentary/Breast Denies: rash Neurological Denies: headache Endocrine Denies: excessive urination Hematologic/Lymphatic Denies: easy bruising or easy bleeding Exam Narrative Exam Narrative: Gen.: Awake, alert, in no distress Head: Normocephalic, atraumatic ENT: Moist mucous membranes Respiratory: No respiratory distress Gastrointestinal: Abdomen is soft, nondistended and mildly tender to palpation in the left upper quadrant; no guarding or rebound Back: No CVA or flank tenderness Extremities: Moves extremities equally Psych: Normal mood and affect Neuro: No focal neuro deficit Skin: Warm, dry, intact Constitutional Vital Signs, click to edit/add: Last Vital Signs Temp 98.0 F 09/02/23 13:50 Pulse 65 09/02/23 13:50 Resp 18 09/02/23 13:50 BP 159/78 H 09/02/23 13:50 Pulse Ox 100 09/02/23 13:50 O2 Del Method Room Air 09/02/23 13:50 Course Vital Signs Vital signs: Vital Signs Temperature 98.0 F 09/02/23 13:50 Pulse Rate 65 09/02/23 13:50 Respiratory Rate 18 09/02/23 13:50 Blood Pressure 159/78 H 09/02/23 13:50 Pulse Oximetry 100 09/02/23 13:50 Oxygen Delivery Method Room Air 09/02/23 13:50 Temperature 98.0 F 09/02/23 13:50 Pulse Rate 65 09/02/23 13:50 Respiratory Rate 18 09/02/23 13:50 Blood Pressure 159/78 H 09/02/23 13:50 Pulse Oximetry 100 09/02/23 13:50 Oxygen Delivery Method Room Air 09/02/23 13:50 MDM - Abdominal Pain MDM Narrative Medical decision making narrative: Patient medicated for pain in the ER with improvement, vital signs are stable and labs show normal white blood cell count, the remainder are unremarkable. CT of the abdomen and pelvis shows mild wall thickening of the colon consistent with possible colitis. No other significant abnormalities noted. Patient started on Cipro, Flagyl, Levsin, Zofran for home. Clear liquid diet encouraged. Follow-up with PCP and return to the ER if symptoms change or worsen. Medical Records Attestation: I reviewed the patient's medical records. Lab Data Attestation: I reviewed the patient's lab results. Labs: Lab Results 09/02/23 Range/Units 14:10 WBC 8.1 (4.0-11.0) 10^3/uL RBC 4.43 (4.20-5.40) 10^6/uL Hgb 13.8 (12.0-16.0) g/dL Hct 40.8 (36.0-48.0) % MCV 92.1 (81.0-99.0) fL MCH 31.2 (26.7-34.0) pg MCHC 33.8 (29.9-35.2) g/dL RDW 11.9 (11.0-15.0) % Plt Count 262 (150-450) 10^3/uL MPV 11.7 (9.5-13.5) fL Neut % (Auto) 68.6 (43.0-75.0) % Lymph % (Auto) 23.0 (20.5-60.0) % [place] % (Auto) 7.2 (1.7-12.0) % Eos % (Auto) 0.6 L (0.9-7.0) % Baso % (Auto) 0.5 (0.2-2.0) % Neut # (Auto) 5.5 (1.4-6.5) 10^3/uL Lymph # (Auto) 1.9 (1.2-3.8) 10^3/uL [place] # (Auto) 0.6 (0.3-0.8) 10^3/uL Eos # (Auto) 0.1 (0.0-0.7) 10^3/uL Baso # (Auto) 0.0 (0.0-0.1) 10^3/uL Abs Immat Gran (auto) 0.01 (0.00-0.03) 10^3/uL Imm/Tot Granulo (auto) 0.1 (0.0-0.5) % Sodium 137 (136-145) mmol/L Potassium 3.9 (3.5-5.1) mmol/L Chloride 98 (98-107) mmol/L Carbon Dioxide 28.5 (21.0-32.0) mmol/L Anion Gap 14.4 BUN 14.0 (7.0-18.0) mg/dL Creatinine 0.84 (0.55-1.02) mg/dL Est GFR ( Amer) >60 (>=60) Est GFR (Non-Af Amer) >60 (>=60) BUN/Creatinine Ratio 16.7 Glucose 98 (74-106) mg/dL Lactate 1.0 (0.4-2.0) mmol/L Calcium 9.1 (8.5-10.1) mg/dL Total Bilirubin 0.4 (0.2-1.0) mg/dL AST 28 (15-37) U/L ALT 108 H (14-59) U/L Alkaline Phosphatase 96 (46-116) U/L Total Protein 7.8 (6.4-8.2) g/dL Albumin 3.8 (3.4-5.0) g/dL Globulin 4.0 g/dL Albumin/Globulin Ratio 0.9 Lipase 47.0 (16.0-77.0) U/L Serum HCG, Qual Negative (NEGATIVE) Urine Color Yellow (YELLOW) Urine Clarity Clear (CLEAR) Urine pH 6.0 (5.0-9.0) Ur Specific [place] 1.015 (1.005-1.025) Urine Protein Negative (NEG/TRACE) mg/dL Urine Glucose (UA) Negative (NEGATIVE) mg/dL Urine Ketones Negative (NEGATIVE) mg/dL Urine Occult Blood Moderate A (NEGATIVE) Urine Nitrite Negative (NEGATIVE) Urine Bilirubin Negative (NEGATIVE) Urine Urobilinogen 0.2 (0.2-1.0) EU/dL Ur Leukocyte Esterase Negative (NEGATIVE) Urine RBC 10-20 A (0-2) #/HPF Urine WBC 0-2 A (NONE SEEN) #/HPF Ur Squamous Epith Cells Few A (NONE/RARE) #/LPF Urine Crystals None seen (None Seen) #/HPF Urine Bacteria Trace A (NONE SEEN) #/HPF Urine Casts None seen (NONE SEEN) #/LPF Urine Mucus None seen (NONE SEEN) Imaging Data CT scan - abdomen: Attestation: I have reviewed the pertinent imaging results. Radiologist's impression: ITS Impressions Abdomen/Pelvis CT 09/02/23 14:49 IMPRESSION: 1. Prior gastric bypass surgery without obstruction. 2. Mild-moderate wall thickening throughout majority of the length of the colon; colitis versus lack of distention. 3. Bilateral nonobstructing nephrolithiasis; large 14 mm stone within left kidney. 4. Both fallopian tube clips are within left adnexa; this could be secondary to dislodgment of the right fallopian tube clip or a free floating ovary. Electronically authenticated by: ETTA DICKSON Date: 09/02/2023 15:44 Discharge Plan Discharge Stand Alone Forms: Portal Instructions Chief Complaint: Abdominal Pain Clinical Impression: Colitis, Abdominal pain Patient Disposition: Home, Self-Care Time of Disposition Decision: 16:01 Condition: Good Prescriptions / Home Meds: New ciprofloxacin HCl 500 mg tablet 500 mg PO Q12H 10 Days Qty: 20 0RF ondansetron 4 mg tablet,disintegrating 4 mg PO Q6H PRN (Reason: nausea and vomiting) Qty: 12 0RF metronidazole 500 mg tablet 500 mg PO Q12H 10 Days Qty: 20 0RF hydrocodone-acetaminophen 5-325 mg tablet 1 tab PO Q6H PRN (Reason: pain) 2 Days Qty: 8 0RF Rx Instructions: DX: R10.9 hyoscyamine sulfate [Levsin] 0.125 mg tablet 0.125 mg PO Q6H PRN (Reason: abdominal pain) Qty: 12 0RF Print Language: Mongolian Instructions: Clear Liquid Diet (ED), Colitis (ED) Additional Instructions: Please follow a clear liquid diet for 2 days, follow up with your doctor Referrals: FRANTZ PANDA [Primary Care Provider] - 1 week
--- OUTSIDE RECORDS SUMMARY | 2023-09-02 14:02 | XMS_ITS | CCD ---
Author Organization [facility] Care Team Providers Care Trade Economist Name Role Phone LUDY LAINEZ Primary Care Physician [phone] ERICK KRAFT Consulting Unavailable LAINEZ ., DR [...] Attending Unavailable MISC, DR HDEZ Admitting Unavailable ZIEBER, DR ETTA Hopkins Consulting [...] Unavailable LUE ., ROMI M Admitting Unavailable LAINEZ ., DR LUDY French Consulting Unavailable LAINEZ ., DR LUDY French Primary Care Unavailable LAINEZ ., DR LUDY French Attending Unavailable LAINEZ ., DR LUDY French Admitting Unavailable YESSI, DR ETTA Hopkins Consulting Unavailable MARY SOTO Consulting Unavailable LAINEZ ., DR LUDY French Primary Care Unavailable MARY SOTO Attending Unavailable MARY SOTO Admitting Unavailable PAY ., DR PUENTE Consulting Unavailable PAY ., DR PUENTE Attending Unavailable PAY ., DR PUENTE Admitting Unavailable LAINEZ ., DR LUDY French Primary Care Unavailable MAXIMILIANO TAYLOR Consulting Unavailable MEGHA RESENDIZ Consulting Unavailable IVETT THOMPSON Consulting Unavailable Radha Leo Primary Care Physician Romi Sarmiento Attending Unavailable Radha Leo Attending Unavailable Romi Sarmiento Attending Unavailable Romi Sarmiento Attending Unavailable Romi Sarmiento Attending Unavailable Radha Leo Attending Unavailable Radha Leo Admitting Unavailable Romi Sarmiento Attending Unavailable Romi Sarmiento Attending Unavailable Unavailable Unavailable Unavailable Allergies Allergy Classification Reported Allergen(s) Allergy Type Date of Onset Reaction(s) Facility (1 source) No Known Medication Allergies; Translations: [No Known Medication Allergies] Propensity to adverse reactions (disorder) [facility] Repository Medications Current Medications Medication Drug Class(es) Dates Sig (Normalized) Sig (Original) acetaminophen 325 mg / oxyCODONE hydrochloride 5 mg oral tablet (1 source) Opioid Agonist Start: 03-22-2022 Percocet 325 mg-5 mg Tab See Instructions, 50 tab(s), Refill(s) 0, 1- 2 tab(s) Oral q4hr PRN post operative knee replacement pain. Duration 7 days, [facility] #[id number], 165, cm, 02/26/22 12:16:00 EDT, Height/Length Dosing, [...] day(s), # 30 tab(s), Refills(s) 0, Pharmacy: [facility] #[id number], 165, cm, 02/26/22 12:16:00 EDT, Height/Length Dosing, 85.1, kg, 02/26/22 12:16:... Start Date: 03/22/22 Stop Date: 04/21/22 Status: Ordered Bariatric Multivitamins with 45 mg Iron oral capsule (6 sources) Start: 02-26-2022 take 1 capsule by [...] day(s), # 20 cap(s), Refills(s) 0, [facility]acy: [facility] #[id number], 165, cm, 02/26/22 12:16:00 EDT, Height/Length Dosing, 85.1, kg, 02/26/22 12:16:00 EDT, Weight Do... Start Date: 03/22/22 Stop Date: 03/27/22 Status: Ordered docusate sodium 100 mg oral capsule (1 source) Start: 03-22-2022 take 1 capsule by mouth twice daily Colace 100 mg Cap 100 mg = 1 cap(s), Oral, BID, # 20 cap(s), Refills(s) 0, Pharmacy: [facility] #[id number], 165, cm, 02/26/22 12:16:00 EDT, Height/Length Dosing, 85.1, kg, 02/26/22 12:16:00 EDT, Weight Dosing Start Date: 03/22/22 Status: Ordered promethazine hydrochloride 25 mg oral tablet (6 sources) Phenothiazine Start: 03-22-2022 take 1 tablet by mouth every four hours as needed for nausea promethazine 25 mg Tab 25 mg = 1 tab(s), Oral, q4hr, PRN for nausea/vomiting, Post knee surgery nausea/vomiting, # 20 tab(s), Refills(s) 0, Pharmacy: [facility] #[id number], 165, cm, 02/26/22 12:16:00 EDT, Height/Length Dosing, 85.1, kg, 02/26/22 12:16:00 EDT, Weight Dosing Start Date: 03/22/22 Status: Ordered tamsulosin hydrochloride 0.4 mg oral capsule (2 sources) alpha-Adrenergic Chaya Start: 06-13-2022 take 1 capsule by mouth once daily Flomax 0.4 mg Cap 0.4 mg = 1 cap(s), Oral, Daily, # 30 cap(s), Refills(s) 1, Pharmacy: [facility] #[id number], 165, cm, 06/13/22 9:38:00 EST, Height/Length Dosing, 73.5, kg, 06/13/22 9:38:00 EST, Weight Dosing Start Date: 06/13/22 Status: Ordered Completed/Discontinued Medications Medication Drug Class(es) Dates Sig (Normalized) Sig (Original) Calcium Citrate (6 sources) Start: 02-26-2022 take 2 tablets by mouth twice daily calcium citrate Tab 500 mg, Oral, BID, 2 tabs twice a day, Prophylaxis Start Date: 02/26/22 Status: Ordered Problems Active Problems Problem Classification Problem Date Documented Da te Episodic/Chronic Acquired foot deformities (6 sources) Foot-drop 02-26-2022 Episodic Calculus of urinary tract (20 sources) Kidney stone; Translations: [Calculus of kidney] Onset: 06-13-2022 Episodic Essential hypertension (6 sources) Hypertensive disorder; Translations: [Essential (primary) hypertension] Onset: 08-06-2022 06-13-2022 Chronic Genitourinary symptoms and ill-defined conditions (5 sources) Microscopic hematuria; Translations: [Asymptomatic microscopic hematuria] Onset: 06-13-2022 Episodic Osteoarthritis (17 sources) Osteoarthritis of knee; Translations: [Unilateral primary osteoarthritis, right knee] Onset: 01-13-2022 Chronic Other aftercare (1 source) Other assisted (current) drug therapy; Translations: [[facility] CURRENT DRUG THERAPY] Onset: 08-06-2022 Episodic Other [...] SPECIFIED POSTPROCEDURAL STATES] Onset: 09-05-2022 Episodic Unclassified (5 sources) Asymptomatic microscopic hematuria 06-13-2022 Unclassified (2 sources) Body mass index 20-24 - normal 10-24-2022 Unclassified (2 sources) Non-smoker 10-24-2022 Past or Other Problems Problem [...] Test Name Value Interpretation Reference Range Facility [facility] 07-13-2023 Lab Reports [id number]#[id number] F [facility] Ambulatory Visit Summaryon 0 06-10-2023 Ambulatory Visit Summary JASMIN CALVILLO :1975 Visit Date:06/10/2023 Ambulatory Visit Instructions Your Diagnosis Ureteral stone Kidney stones Asymptomatic microscopic hematuria Tests Performed Urnls Dip Stick Auto w/o Microscopy POC 83844 US Renal -- Results Pending -- XR [...] tendon operation. Discharge Vitals Heart Rate (Peripheral) 71 Blood Pressure 142/80 Height 65 in Height 165 cm Weight 161.7 lb Weight 73.5 kg BMI 27 What to do next Scheduled Follow-Up Appointments Thursday 9:00 AM EDT With: Torsten DIAMOND, Romi Sinclair Where: [facility] Formson 06-10-2023 Forms [id number] [facility] Patient Educationon 06-10-19 24 Patient Education Nephrology Dietary Guidelines to Help Prevent Kidney Stones Kidney stones are deposits of minerals and salts that form inside your kidneys. Your risk of developing kidney stones may be greater depending on your diet, your lifestyle, the medicines you take, and whether you have certain medical conditions. Most people can lower their risks of developing kidney stones by following these dietary guidelines. Your dietitian may give you more specific [...] ? 8 oz (237 mL) of milk, sboheeg-fhrelqrtvbjs-pmo ry milk, and calcium-fortifiedfruit juice. Calcium-fortified means [...] table and allow each person to add their own salt to taste. ? Use vegetable [...] or seafood. ? When you prepare animal proteins, cut pieces into small portion sizes. For [...] two kinds of vegetables at dinner. ? You may be told to limit foods that are high in a substance called oxalate. These include: ? Spinach (cooked), rhubarb, beets, sweet potatoes, and Chadian chard. ? Peanuts. ? Potato chips, ukrainian fries, and baked potatoes with skin on. ? Nuts and nut products. ? Chocolate. ? If you regularly take a diuretic medicine, make sure to eat at least 1 or 2 servings of fruits or vegetables that are high in potassium each day. These include: ? Avocado. ? Banana. ? Jessamine, prune, carrot, or tomato juice. ? Baked potato. ? Cabbage. ? Beans and split peas. Lifestyle ? Drink enough fluid to keep your urine pale yellow. This is the most important thing you can do. Spread your fluid intake throughout the day. ? If you drink alcohol: ? Limit how much you have to: ? 0?1 drink a day for women who are not . ? 0?2 drinks a day for men. ? Know how much alcohol is in your drink. [...] of your kidney stones, you may be told: ? Do not take high-dose supplements of vitamin C (1,000 mg a day or more). ? To take a calcium supplement. ? To take a daily probiotic supplement. ? To take other supplements such as magnesium, fish oil, or vitamin B6. ? Take eoky-tqw-dcbviwj and prescription medicines only as told by your health care provider. These include supplements. What foods sh (more content not included)... [facility] Reminderson 06-10-2023 Reminders - From: Odalys Hermosillo To: NURA - Angy Sarmiento; Sent: 06/10/2023 09:51:08 EST Show up: 11/09/2023 10:51:00 EDT Subject: KUB and OSCAR Reminder Message Please Remember to:_have pt get KUB and OSCAR done prior to appt. Prefers [facility]. [facility] Screenson 06-10-2023 Screens [id number] [facility] Urology Office/Clinic Noteon 06-10-2023 Urology Office/Clinic Note Chief Complaint 6 month follow up HPI Staff 6m KUB & OSCAR Ureteral Stone, Kidney Stone & Microscopic Hematuria *No urology meds OSCAR & KUB 05/18/23 Dysuria: denies pain or burning Incomplete bladder emptying: denies Hematuria: denies visible blood Frequency: denies Urgency: denies Nocturia: 1x a night Stream: denies hesitancy, denies weak stream Leaking: denies Post void dripping: denies Wearing pads/ Depends: denies Urge incontinence: denies Stress incontinence: denies Incontinence without Sensory Awareness: denies Abdominal pain: denies Flank pain: denies Sexual complaints: denies History of Present Illness Tests reviewed: reviewed UA, OSCAR, KUB I have reviewed the previous health record information and history for this patient from Dr. Sarmiento. I have reviewed and verified the staff HPI to be accurate for this encounter. Review of Systems PHQ Score Initial Depression Screen Score: 0 SCORE ROS - Provider Constitutional: denies weight loss, [...] HPI. Physical Exam Vitals & Measurements HR: 71(Peripheral) BP: 142/80 HT: 65 in HT: 165 cm WT: 73.5 kg WT: 161.7 lb BMI: 27 General Appearance: alert , no acute distress, well nourished, well developed female. Genitourinary: bladder nonpalpable, no flank pain. Assessment/Plan 47 yo female with history of gastric bypass and recurrent kidney stones presents for follow up 1. Kidney stones (N20.0: Calculus of kidney) Hx of gastric bypass surgery - risk factor for stones. Family hx - mother with stones. Presented to [facility] ER on 05/27/22- CT AP with IV/PO contrast: 5 mm right UPJ stone, 1 mm right UVJ stone, mild hydronephrosis and delayed nephrogram. 3 mm left UVJ stone without left hydronephrosis or ureter. Additional 2 to 3 mm nonobstructing renal calculi. [facility] 06/30/22 - personal review: mild R hydro improved, bilateral nonobstructing stones, largest measuring 5 mm bilaterally. KUB neg CT AP w/o contrast 07/10/22 marked right hydroureteronephrosis and 6 x 5 x 4 mm distal ureteral stone. RLP 2 mm stone, LLP 3.5 mm stone S/p Cysto, Right ureteroscopy w/ laser litho, stone extraction, string stent placed. Stent removed at home without complications. [facility] 08/30/22 - bilateral stones - tiny RLP stone, 3.5 mm left stone KUB 05/18/23 [facility] - 5mm stone in RLP. 1cm stone in LLP. Personal review: stones are overestimated in size, likely multiple small stones. OSCAR 05/18/23 [facility] - 1.4cm stone in L renal pelvis (likely lower pole) and 7mm stone in mid to lower of R kidney. Metabolic stone workup: Stone analysis 20% CaOx monohydrate, 80% CaOx dihydrate. Ca 9.6 drawn 07/18/22. BMP wnl. [facility]oLink 24hr Urine Panel 11/02/22 - 1340mL of urine, mildly Ca 222, low citrate 384, high oxalate 59 Metabolic serum Workup 09/04/22 all wnl No issues or pain since last seen. Did pass tiny stone months ago. Discussed imaging results. Advised pt she has bilateral renal stones but are not likely the size indicated, stones may be clustered together, overall has increased however. States she eats a lot of potatoes and knows she needs to limit these. Drinks 60oz of water per day but also drinks orange and grapefruit juice. Recommended pt to increase water /fluid intake by 1 L given prior Litholink results, pt unsure if she has done this. Discussed repeating 24hr urine to reassess effectiveness of dietary modifications. Discussed consideration of ESWL to treat renal stones vs URS. Pt elects for continued surveillance given asx. -OSCAR and KUB in 6 mos -Increase water intake by 1 L -Consider L ESWL in future -Repeat 24hr urine prior to next visit to assess dietary modification effects Ordered: Body Mass Index (BMI) documented 3008F Current tobacco non-user 1036F Depression Screening Negative 3352F Influenza immunization status assessed 1030F Most recent diastolic blood pressure 80-89 mm Hg 3079F Most recent systolic blood pressure >= 140 mm Hg 3077F Urnls Dip Stick Auto w/o Microscopy POC 66782 US Renal XR Abdomen 1 View 2. Asymptomatic microscopic hematuria (R31.21: Asymptomatic microscopic hematuria) BBS 8. UA today negative for blood. -Cont monitoring I spent 30 minutes today with the patient: reviewing tests in preparation to see and discuss them with the patient, documenting clinical information in the electronic health records, and care coordination. Time was spent performing a medical exam and evaluation, counseling and educating the patient/family/caregiver , and ordering medications, tests, and procedures in caring for the patient (more content not included)... Normal [facility] Comment on above: Result Comment: Elec tronically Signed By: Romi Sarmiento MD\.br\Date and Time Signed: 06/10/23 14:46 EST\.br\Electronically Co-Signed By: Odalys Hermosillo\.br\Date and Time Co-Signed: 06/10/23 09:52 EST Reminderson 06-04-2023 Reminders - From: Tanesha Rowley To: NURA - Angy Sarmiento; Sent: 12/03/2022 13:42:54 EDT Show up: 05/01/2023 13:42:00 EST Subject: OSCAR/KUB Reminder/Recall To be done @ [facility] prior to her 06/10/[address] Sarmiento Called pt Left VM to return our call about imaging. Pt called and she will be calling [facility] to schedule OSCAR and have KUB done on same day Called pt and left VM to see when she is scheduled for OSCAR/KUB Pt called and she is having OSCAR & KUB done @ [facility] on 05/18/2023 OSCAR in pt chart for upcoming appointment. KUB in pt chart [facility] RAD - MISCon 05-28-2023 RAD - MISC [id number] [id number]#[id number] F Normal [facility] RAD - Ultrasound Reporton RAD - Ultrasound Report [id number]#1.00TIF F Normal [facility] Outside Mammographyon 2022 Outside Mammography [id number]#[id number]: 127 [facility] Outside Mammography [id number]: 127 Normal [facility] Screenson 12-04-2022 Screens [id number]#1.00CD :127 Normal [facility] Ambulatory Visit Summaryon 0 12-03-2022 Ambulatory Visit Summary RAJINDERYONASJASMIN :1975 Visit Date:12/03/2022 Ambulatory Visit Instructions Your Diagnosis Ureteral stone Kidney stones Asymptomatic microscopic hematuria Tests Performed Urnls Dip Stick Auto w/o Microscopy POC 56722 US Renal -- Results Pending -- XR [...] Romi Sarmiento MD Where: [facility] Patient Educationon 12-04-19 Patient Education Nephrology Dietary [...] ? 8 oz (237 mL) of milk, ujrenmc-gqsitihkrznk-xgn ry milk, and calcium-fortifiedfruit juice. Calcium-fortified means [...] Spinach (cooked), rhubarb, beets, sweet potatoes, and Chadian chard. ? Peanuts. ? Potato chips, ukrainian fries, and baked potatoes with skin on. ? Nuts and nut products. ? Chocolate. ? If you regularly take a diuretic medicine, make sure to eat at least 1 or 2 servings of fruits or vegetables that are high in potassium each day. These include: ? Avocado. ? Banana. ? Jessamine, prune, carrot, or tomato juice. ? Baked [...] fish oil, or vitamin B6. ? Take losg-xxi-fijkqai and prescription medicines only as told by your health care provider. These include supplements. What foods should I limit? Limit your in (more content not included)... Normal [facility] Urology Office/Clinic Noteon 12-03-2022 Urology Office/Clinic Note [...] stone (N20.1: Calculus of ureter) Presented to [facility] ER on 05/27/22 for low abdominal pain and diarrhea. CT AP with IV/PO contrast 05/27/22 - 5 mm right UPJ stone, 1 mm right UVJ stone, mild hydronephrosis and delayed nephrogram. 3 mm left UVJ stone without left hydronephrosis or ureter. Additional 2 to 3 mm nonobstructing renal calculi present. OSCAR 06/06/22 at [facility] - Right kidney: Dilated renal pelvis and [...] medical e (more content not included)... Normal [facility] Comment on above: Result Comment: Elec tronically Signed By: Romi Sarmiento MD\.br\Date and Time Signed: 12/03/22 08:55 EDT\.br\Electronically Co-Signed By: Malathi Rivera\.br\Date and Time Co-Signed: 12/03/22 08:48 EDT [facility] 11-11-2022 Lab Reports [id number]#1.00CD: 127 Normal [facility] PAP [id number] 11-05-2022 Cytology report Cyto stain Doc (Cvx/Vag) Note Invalid Interpretation Code [facility] Comment on above: Result Comment: TEST S RESULT FLAG UNITS REF RANGE LAB Clinician Provided Cytology Information Source.............Endocervix No. of containers..01 ThinPrep Vial DIAGNOSIS: 01 NEGATIVE FOR INTRAEPITHELIAL LESION OR MALIGNANCY. FUNGAL ORGANISMS MORPHOLOGICALLY CONSISTENT WITH KILEY SPECIES ARE PRESENT. THIS SPECIMEN WAS RESCREENED PART OF OUR SHOE DRESSER PROGRAM. Specimen adequacy: 01 Satisfactory for evaluation. Endocervical and/or squamous metaplastic cells (endocervical component) are present. Performed by: 02 Saman Lopez, Retaining Room Cutter (ASCP) QC reviewed by: 01 Nel Swift, Supervisory Retaining Room Cutter (ASCP) . 01 Note: Note 01 The [...] Low,>-Panic High,A-Abnormal,AA-Critical Abnormal Performed at: 01 [facility] [address] [place] [address], [place] [address] Catherine Pearson MD, 02 [facility] [address] [place] [id number] Alex Pascual MD, Performed By: #### 1 [id number] ####[facility] [id number] [place] [address] HPV 16+18+31+33+35+39+4 5+51+52+56+58+59+66 +68 DNA Probe+sig amp Ql (Cvx) Negative Invalid Interpretation Code Negative [facility] Comment on above: Result Comment: This nucleic acid amplification test detects fourteen high-risk HPV types (16,18,31,33,35,39,45,51,52,56,58,59,66,68) without differentiation. Performed at: [facility] [address] [place], [place] [id number] MD Bendre Catherine Performed at: = [facility] [place] Archer [id number] MD Michel Alexander Performed By: #### 1 [id number] ####[facility] [id number] [place] [address] Ambulatory Visit Summaryon 0 10-24-2022 Ambulatory Visit [...] DIAMOND, Romi Sinclair Where: [facility] Family Medicine Office/Clini c Noteon 10-24-2022 Family [...] virus vaccine, inactivated 04/28/2022 Recorded SARS-CoV-2 (COVID-19) [id number] 04/28/2022 Recorded SARS-CoV-2 (COVID-19) mRNA BNT-162b2 vax [...] influenza virus vaccine, inactivated 04/24/2013 Recorded Normal [facility] Comment on above: Result Comment: Elec tronically [...] but insufficient cells. due for mammogram in October/November Review of Systems PHQ Score Initial Depression [...] masses. Pap obtained Neurologic: Grossly normal Skin: [place], moist, no tenting Lymph Nodes: No cervical [...] Mammogram order provided to be done at [facility]. discussed pelvic u/s if gas/bloating pain continues. all questions answered. RTC 1 year Ordered: MA Mamm Screen w/CAD if perf and 3D Peng PAP w/ HPV and Genotype rflx 2. Breast cancer screening (Z12.39: Encounter for other screening for malignant neoplasm of breast) mammogram order provided to be done at [facility] Ordered: MA Mamm Screen w/CAD if perf [...] Iron or (more content not included)... Normal [facility] Comment on above: Result Comment: Elec tronically Signed By: Radha Farley\.br\Date and Time Signed: 10/24/22 10:43 EDT Family [...] for malignant neoplasm of cervix) Ordered: PAP [id number] w/ HPV and Genotype rflx 4. BMI 24.0-24.9, adult (Z68.24: Body mass index [BMI] 24.0-24.9, adult) Ordered: PAP [id number] w/ HPV and Genotype rflx 5. Non-smoker (Z78.9: Other specified health status) Ordered: PAP [id number] w/ HPV and Genotype rflx Follow-up No [...] virus vaccine, inactivated 04/28/2022 Recorded SARS-CoV-2 (COVID-19) [id number] 04/28/2022 Recorded SARS-CoV-2 (COVID-19) mRNA BNT-162b2 vax [...] influenza virus vaccine, inactivated 04/24/2013 Recorded Normal [facility] Comment on above: Result Comment: Elec tronically Signed By: Radha Farley\.br\Date and Time Signed: 10/24/22 10:42 EDT PAP [id number] 10-24-2022 Gynecological Body Site ENDOCERVIX Normal [facility] Comment on above: Performed By: #### 1 [id number] ####[facility] [id number] [place] [address] Patient Educationon 10-25-19 Patient Education Nutrition BMI for Adults What [...] numbers. This can be done either in [place] ([place] or metric measurements. Note that charts and online BMI calculators are available to help you find your BMI quickly and easily without having to do these calculations yourself. To calculate your BMI in [place]ian ([place] measurements: 1. Measure your weight in [...] for Disease Control and Prevention: www.cdc.gov ? [place] Heart Association: www.heart.org ? National Heart, Lung, and Blood [place]: www.nhlbi.nih.gov Summary ? Body mass index (BMI) is a number that is calculated from a person's weight and height. ? BMI may help estimate how much of a person's weight is composed of fat. BMI can help identify those who may be at higher risk for certain medical problems. ? BMI can be measured using [place]ian measurements or metric measurements. ? BMI charts are used to identify whether you are underweight, normal weight, overweight, or obese. This information is not intended to replace advice given to you by your health care provider. Make sure you discuss any questions you have with your health care provider. Document Revised: 02/08/2020 Document Reviewed: 12/16/2019 [employer] Patient Education ? 2022 [employer] [facility] Formson 10-16-2022 Forms [id number]: 127 [facility] Lab Report[facility] 09-17-2022 Lab Reports [id number]#1.00CD: 127 Normal [facility] Lab Reports [id number]#1.00CD: 127 Normal [facility] RAD - Ultrasound Reporton RAD - Ultrasound Report [id number]: 127 Normal [facility] PTH INTACTon 09-05-2022 PTH, Intact 16 pg/mL Normal 15-65 [facility] Comment on above: Performed By: #### E [facility]UR, [facility] #### [facility] [address] [address] [address] Sandra Castano Ambulatory Visit Summaryon 0 09-04-2022 Ambulatory Visit Summary JASMIN CALVILLO :1975 Visit Date:09/04/2022 Ambulatory Visit Instructions Your Diagnosis Ureteral stone Kidney stones Asymptomatic microscopic hematuria Tests Performed Urnls Dip Stick Auto w/o Microscopy POC 60415 Your Care Team Attending Physician - Torsten DIAMOND, Romi Sinclair Primary Care Physician - SHANNON DIAMOND, LUDY [...] Follow-Up Appointments Thursday 3:30 PM EDT With: Torsten DIAMOND, Romi Sinclair Where: [facility] [facility] Normal [facility] Patient Educationon 09-05-19 Patient Education Urology Kidney Stones Kidney stones [...] these instructions at home: Medicines ? Take [id number] and prescription medicines only as told by [...] 11/03/2008 Document Revised: 10/04/2019 Document Reviewed: 10/04/2019 [employer] Patient Education ? 2019 [employer] Normal [facility] URIC ACID SERUMon 09-04-2022 Urate [Mass/Vol] 4.4 mg/dL Normal 2.6-6.0 [facility] Comment on above: Performed By: #### L IPA, CMP #### [facility] [address] [address] [address] Sandra Castano Urology Office/Clinic Noteon 09-04-2022 [...] stone (N20.1: Calculus of ureter) Presented to [facility] ER on 05/27/22 for low abdominal pain and diarrhea. CT AP with IV/PO contrast 05/27/22 - 5 mm right UPJ stone, 1 mm right UVJ stone, mild hydronephrosis and delayed nephrogram. 3 mm left UVJ stone without left hydronephrosis or ureter. Additional 2 to 3 mm nonobstructing renal calculi present. OSCAR 06/06/22 at [facility] - Right kidney: Dilated renal pelvis and [...] routine screening Follow-up With When Contact Information Torsten DIAMOND, Romi Sinclair, URL, URO Additional Instructions: 6-8 weeks w/ met w/up Patient Education Kidney Stones, Bajp-wy-Leuz IShaye, personally scribed for Dr. Sarmiento on 09/04/2022 09:32:07. . Documentation recorded by the scribe, Lydia Jones, accurately reflects the services(s) I performed and decisions made by me. Authenticated by Dr. Sarmiento on 09/04/2022 18:14:0 (more content not included)... Normal [facility] Comment on above: Result Comment: Elec tronically Signed By: Romi Sarmiento MD\.br\Date and Time Signed: 09/04/22 18:14 EDT\.br\Electronically Co-Signed By: Shaye Jones.br\Date and Time Co-Signed: 09/04/22 09:32 EDT\.br\Electronically Co-Signed By: Shaye Jones.jens\Date and Time Co-Signed: 09/04/22 11:09 EDT US KIDNEYSon 08-31-2022 US KIDNEYS US KIDNEYS EXAM DATE: 08/30/2022 7:55 AM MDT COMPARISON: Ultrasound kidney is 06/30/2022, 06/06/2022; CT abdomen and pelvis 07/10/2022. INDICATION: Kidney stones. History of stone and stent removal. TECHNIQUE: Real-time ultrasound scanning of the kidneys and bladder was performed by the market investigator. Fabrication Department Supervisor static images are submitted for review. [...] by: MAISHA ESTRADA Date: 2022-08-31 13:15 Normal [facility] CALCULI, URINARYon 3 2,8 Dihydroxyadenine Normal [facility] Comment on above: Performed By: #### C ALCULI #### [facility] [address] [place] [address] Dr. Sandra Castano Ammonium Acid Urate Normal [facility] Comment on above: Performed By: #### C ALCULI #### [facility] [address] [address] [address] Sandra Castano Bilirubin Ql (U) [facility] Comment on above: Performed By: #### C ALCULI #### [facility] [address] [address] [address] Sandra Castano Ca Oxalate Dihydrate 80 % [facility] Comment on above: Performed By: #### C ALCULI #### [facility] [address] [address] [address] Sandra Castano CaHPO4 (Brushite) [facility] Comment on above: Performed By: #### C ALCULI #### [facility] [address] [address] [address] Sandra Castano Calcium Bilirubinate [facility] Comment on above: Performed By: #### C ALCULI #### [facility] [address] [address] [address] Sandra Castano Calcium Carbonate [facility] Comment on above: Performed By: #### C ALCULI #### [facility] [address] [address] [address] Sandra Castano Calcium Oxalate Monohydrate 20 % [facility] Comment on above: Performed By: #### C ALCULI #### [facility] [address] [address] [address] Sandra Castano Calcium Palmitate Normal [facility] Comment on above: Performed By: #### C ALCULI #### [facility] [address] [address] [address] Sandra Castano Calcium Phosphate [facility] Comment on above: Performed By: #### C ALCULI #### [facility] [address] [address] [address] Sandra Castano Calcium Stearate [facility] Comment on above: Performed By: #### C ALCULI #### [facility] [address] [address] [address] Sandra Castano Carbonate Apatite [facility] Comment on above: Performed By: #### C ALCULI #### [facility] [address] [address] [address] Sandra Castano Cellular Material [facility] Comment on above: Performed By: #### C ALCULI #### [facility] [address] [address] [address] Sandra Castano Cholesterol [facility] Comment on above: Performed By: #### C ALCULI #### [facility] [address] [address] [address] Sandra Castano Color (U) Hahn [facility] Comment on above: Performed By: #### C ALCULI #### [facility] [address] [address] [address] Sandra Castano Comment [facility] Comment on above: Performed By: #### C ALCULI #### [facility] [address] [place] [address] Dr. Sandra Castano Comment Comment [facility] Comment on above: Result Comment: Calc ulus received wet. Wet calculi must be dried before analysis, which delays reporting of results. Leaving calculi wet (such as water, saline, blood, urine) may lead to changes in composition. Performed By: #### C ALCULI #### [facility] [address] [place] [address] Dr. Sandra Castano Comment: Comment Normal [facility] Comment on above: Result Comment: [facility] questions regarding Calculi Analysis contact [facility] at: [phone]. Performed By: #### C ALCULI #### [facility] [address] [place] [address] Dr. Sandra Castano Composition Comment [facility] Comment on above: Result Comment: Perc entage (Represents the % composition) Performed By: #### C ALCULI #### [facility] [address] [place] [address] Dr. Sandra Castano Cystine [facility] Comment on above: Performed By: #### C ALCULI #### [facility] [address] [place] [address] Dr. Sandra Castano Disclaimer: Comment [facility] Comment on above: Result Comment: This test was developed and its performance characteristics determined by [facility]. It has not been cleared or approved by the Food and Drug Administration. Performed By: #### C ALCULI #### [facility] [address] [place] [address] Dr. Sandra Castano Dried Blood Normal [facility] Comment on above: Performed By: #### C ALCULI #### [facility] [address] [address] [address] Sandra Castnao Drug or Metabolite Normal [facility] Comment on above: Performed By: #### C ALCULI #### [facility] [address] [place] [address] Dr. Sandra Castano Hydroxyapatite [facility] Comment on above: Performed By: #### C ALCULI #### [facility] [address] [place] [address] Dr. Sandra Castano Mg NH4 PO4 (Struvite) [facility] Comment on above: Performed By: #### C ALCULI #### [facility] [address] [place] [address] Dr. Sandra Castano MgHPO4 ([place]ite) [facility] Comment on above: Performed By: #### C ALCULI #### [facility] [address] [place] [address] Dr. Sandra Castano Other component(s) Normal [facility] Comment on above: Performed By: #### C ALCULI #### [facility] [address] [place] [address] Dr. Sandra Castano PDF . Normal [facility] Comment on above: Performed By: #### C ALCULI #### [facility] [address] [place] [address] Dr. Sandra Castano Photo Comment [facility] Comment on above: Result Comment: Phot ograph will follow under a separate cover Performed By: #### C ALCULI #### [facility] [address] [place] [address] Dr. Sandra Castano Please note: Comment [facility] Comment on above: Result Comment: Calc chica report will follow via computer, mail or tinsmith apprentice delivery. Performed By: #### C ALCULI #### [facility] [address] [address] [address] Sandra Castano Size 2x1 Normal [facility] Comment on above: Result Comment: Mult iple pieces received. Dimensions of the largest piece reported. Performed By: #### C ALCULI #### [facility] [address] [address] [address] Sandra Castano Sodium Acid Urate Normal [facility] Comment on above: Performed By: #### C ALCULI #### [facility] [address] [address] [address] Sandra Castano Source Comment [facility] Comment on above: Result Comment: Righ t Ureter Performed By: #### C ALCULI #### [facility] [address] [place] [address] Dr. Sandra Castano Triamterene [facility] Comment on above: Performed By: #### C ALCULI #### [facility] [address] [address] [address] Sandra Castano Uric Acid [facility] Comment on above: Performed By: #### C ALCULI #### [facility] [address] [place] [address] Dr. Sandra Castano Uric Acid Dihydrate Normal [facility] Comment on above: Performed By: #### C ALCULI #### [facility] [address] [address] [address] Sandra Castano Weight 9 mg Normal [facility] Comment on above: Performed By: #### C ALCULI #### [facility] [address] [address] [address] Sandra Castano Xanthine [facility] Comment on above: Performed By: #### C ALCULI #### [facility] [address] [place] [address] Dr. Sandra Castano Operative Reporton 3 Operative Report [id number]: 127 Normal [facility] Lab Reportson 07-30-2022 Lab Reports [id number]: 127 Normal [facility] PREG HCG QUALon 07-30-2022 , QUAL Negative Normal NEGATIVE [facility] Comment on above: Performed By: #### C ALCULI #### [facility] [address] [address] [address] Sandra Castano Lab Reportson 07-22-2022 Lab Reports [id number]: 127 Normal [facility] PROF CHEM 8 (BAS METB)on Anion gap [Moles/Vol] 12.7 mmol/L Normal [facility] Comment on above: Performed By: #### C ALCULI #### [facility] [address] [address] [address] Sandra Castano Calcium [Mass/Vol] 9.6 mg/dL Normal 8.5-10.1 [facility] Comment on above: Performed By: #### C ALCULI #### [facility] [address] [address] [address] Sandra Castano Chloride [Moles/Vol] 101 mmol/L Normal 98-107 [facility] Comment on above: Performed By: #### C ALCULI #### [facility] [address] [address] [address] Sandra Castano CO2 [Moles/Vol] 30.4 mmol/L Normal 21.0-32.0 [facility] Comment on above: Performed By: #### C ALCULI #### [facility] [address] [address] [address] Sandra Castano Creatinine [Mass/Vol] 0.65 mg/dL Normal 0.55-1.02 [facility] Comment on above: Performed By: #### C ALCULI #### [facility] [address] [address] [address] Sandra Castano EGFR-AF [place]ER >60 Normal >=60 [facility] Comment on above: Performed By: #### C ALCULI #### [facility] [address] [address] [address] Sandra Castano EGFR-NON AF [place] >60 Normal >=60 [facility] Comment on above: Performed By: #### C ALCULI #### [facility] [address] [address] [address] Sandra Castano Glucose [Mass/Vol] 121 mg/dL Critically high 74-106 [facility] Comment on above: Performed By: #### C ALCULI #### [facility] [address] [address] [address] Sandra Castano Potassium [Moles/Vol] 4.1 mmol/L Normal 3.5-5.1 [facility] Comment on above: Performed By: #### C ALCULI #### [facility] [address] [address] [address] Sandra Castano Sodium [Moles/Vol] 140 mmol/L Normal 136-145 [facility] Comment on above: Performed By: #### C ALCULI #### [facility] [address] [address] [address] Sandra Castano Urea nitrogen [Mass/Vol] 17.0 mg/dL Normal 7.0-18.0 [facility] Comment on above: Performed By: #### C ALCULI #### [facility] [address] [address] [address] Sandra Castano Urea nitrogen/Creatinine [Mass ratio] 26.2 mg/mg Normal [facility] Comment on above: Performed By: #### C ALCULI #### [facility] [address] [address] [address] Sandra Castano PROTIMEon 07-18-2022 INR Coag (PPP) [Relative time] 0.97 {INR} Normal [facility] Comment on above: Performed By: #### L IPA, CMP #### [facility] [address] [address] [address] Sandra Castano INR GUIDELINES SEE BELOW Normal [facility] Comment on above: Result Comment: DUNIA RED INR: 2.0 - 3.0 CONDITIONS NOT LISTED BELOW 2.5 - 3.5 FOR PROSTHETIC HEART VALVE REPLACEMENT 2.5 - 3.5 RECURRENT THROMBOSIS Performed By: #### L IPA, CMP #### [facility] [address] [place] [address] Dr. Sandra Castano PT Coag (PPP) [Time] 10.3 s Normal 9.0-11.6 [facility] Comment on above: Performed By: #### L IPA, CMP #### [facility] [address] [address] [address] Sandra Castano PTTon 07-18-2022 aPTT Coag (Bld) [Time] 29.1 s Normal 22.3-36.2 [facility] Comment on above: Performed By: #### L IPA, CMP #### [facility] [address] [place] [address] ABD/PELVIS WO CONon 07-10 CT ABD/PELVIS [...] by: ETTA CEDEÑO Date: 2022-07-10 13:31 Normal [facility] US KIDNEYSon 06-30-2022 US KIDNEYS EXAMINATION: US [facility] HISTORY: Kidney stone , hematuria COMPARISON: Ultrasound [...] by: ETTA CEDEÑO Date: 2022-06-30 16:31 Normal [facility] XR KUB 1 VIEWon 06-30-2022 XR KUB [...] by: ETTA CEDEÑO Date: 2022-06-30 17:20 Normal [facility] US KIDNEYSon 06-06-2022 US KIDNEYS EXAMINATION: US KIDN EYS HISTORY: Kidney stone COMPARISON: CT abdomen pelvis [...] by: ETTA CEDEÑO Date: 2022-06-06 12:32 Normal [facility] XR KUB 1 VIEWon 06-06-2022 XR KUB [...] by: ETTA CEDEÑO Date: 2022-06-06 12:36 Normal [facility] CT ABD/PELV W CONon 05-28-[address] [...] MEGHA RESENDIZ Date: 2022-05-27 23:14 Normal [facility] CBC AUTO DIFFon 05-27-2022 BASO # 0.0 103/ul Normal 0.0-0.1 [facility] Comment on above: Performed By: #### C ALCULI #### [facility] [address] [place] [address] Dr. Sandra Castano Basophils/100 WBC (Bld) 0.4 % Normal 0.2-2.0 [facility] Comment on above: Performed By: #### C ALCULI #### [facility] [address] [place] [address] Dr. Sandra Castano EO # 0.0 103/ul Normal 0.0-0.7 [facility] Comment on above: Performed By: #### C ALCULI #### [facility] [address] [place] [address] Dr. Sandra Castano Eosinophils/100 WBC (Bld) 0.1 % Critically low 0.9-7.0 [facility] Comment on above: Performed By: #### C ALCULI #### [facility] [address] [place] [address] Dr. Sandra Castano Erythrocyte distribution width (RBC) [Ratio] 13.0 % Normal 11.0-15.0 [facility] Comment on above: Performed By: #### C ALCULI #### [facility] [address] [place] [address] Dr. Sandra Castano Hematocrit (Bld) [Volume fraction] 37.1 % Normal 36.0-48.0 [facility] Comment on above: Performed By: #### C ALCULI #### [facility] [address] [place] [address] Dr. Sandra Castano Hemoglobin (Bld) [Mass/Vol] 12.1 g/dL Normal 12.0-16.0 [facility] Comment on above: Performed By: #### C ALCULI #### [facility] [address] [place] [address] Dr. Sandra Castano IG # 0.05 10e3/ul Critically high 0.00-0.03 [facility] Comment on above: Performed By: #### C ALCULI #### [facility] [address] [place] [address] Dr. Sandra Castano IG % 0.6 % Critically high 0.0-0.5 [facility] Comment on above: Performed By: #### C ALCULI #### [facility] [address] [address] [address] Sandra Castano LYMPH # 1.0 103/ul Critically low 1.2-3.8 [facility] Comment on above: Performed By: #### C ALCULI #### [facility] [address] [address] [address] Sandra Castano Lymphocytes/100 WBC (Bld) 11.7 % Critically low 20.5-60.0 [facility] Comment on above: Performed By: #### C ALCULI #### [facility] [address] [address] [address] Sandra Castano MANUAL DIFF REQ NO Normal [facility] Comment on above: Performed By: #### C ALCULI #### [facility] [address] [address] [address] Sandra Castano MCH (RBC) [Entitic mass] 28.8 pg Normal 26.7-34.0 [facility] Comment on above: Performed By: #### C ALCULI #### [facility] [address] [place] [address] Dr. Sandra Castano MCHC (RBC) [Mass/Vol] 32.6 g/dL Normal 29.9-35.2 [facility] Comment on above: Performed By: #### C ALCULI #### [facility] [address] [address] [address] Sandra Castano MCV (RBC) [Entitic vol] 88.3 fL Normal 81.0-99.0 [facility] Comment on above: Performed By: #### C ALCULI #### [facility] [address] [address] [address] Sandra Castano MONO # 0.4 103/ul Normal 0.3-0.8 [facility] Comment on above: Performed By: #### C ALCULI #### [facility] [address] [address] [address] Sandra Castano Monocytes/100 WBC (Bld) 4.2 % Normal 1.7-12.0 [facility] Comment on above: Performed By: #### C ALCULI #### [facility] [address] [address] [address] Sandra Castano NEUT # 6.8 103/ul Critically high 1.4-6.5 [facility] Comment on above: Performed By: #### C ALCULI #### [facility] [address] [address] [address] Sandra Castano Neutrophils/100 WBC (Bld) 83.0 % Critically high 43.0-75.0 [facility] Comment on above: Performed By: #### C ALCULI #### [facility] [address] [address] [address] Sandra Castano Platelet mean volume (Bld) [Entitic vol] 11.1 fL Normal 9.5-13.5 [facility] Comment on above: Performed By: #### C ALCULI #### [facility] [address] [place] [address] Dr. Sandra Castano PLT 312 103/ul Normal 150-450 [facility] Comment on above: Performed By: #### C ALCULI #### [facility] [address] [place] [address] Dr. Sandra Castano RBC 4.20 106/ul Normal 4.20-5.40 [facility] Comment on above: Performed By: #### C ALCULI #### [facility] [address] [place] [address] Dr. Sandra Castano WBC 8.2 103/ul Normal 4.0-11.0 [facility] Comment on above: Performed By: #### C ALCULI #### [facility] [address] [place] [address] Dr. Sandra Castano CULTURE URINEon 05-27-2022 CULTURE URINE Culture Observations : LIGHT GROWTH OF MIXED GENITAL NITISH. NO POTENTIAL PATHOGENS SEEN. Normal [facility] Comment on above: Performed By: #### L IPA, CMP #### [facility] [address] [place] [address] Dr. Sandra Castano ER URINE PROFILEon Bilirubin Ql (U) Negative Normal NEGATIVE [facility] Comment on above: Performed By: #### FLORENCIO DUBOISRO #### [facility] [address] [place] [address] Dr. Sandra Castano Clarity (U) CLEAR Normal CLEAR [facility] Comment on above: Performed By: #### FLORENCIO DUBOISRO #### [facility] [address] [place] [address] Dr. Sandra Castano Color (U) YELLOW Normal YELLOW [facility] Comment on above: Performed By: #### FLORENCIO DUBOISRO #### [facility] [address] [place] [address] Dr. Sandra Castano ERUGINA A micrscopic examina tion will be performed if indicated. Normal [facility] Comment on above: Performed By: #### FLORENCIO DUBOISRO #### [facility] [address] [place] [address] Dr. Sandra Castano Glucose Ql (U) Negative Normal NEGATIVE [facility] Comment on above: Performed By: #### FLORENCIO DUBOISRO #### [facility] [address] [place] [address] Dr. Sandra Castano Hemoglobin Ql (U) Negative Normal NEGATIVE [facility] Comment on above: Performed By: #### FLORENCIO DUBOISRO #### [facility] [address] [place] [address] Dr. Sandra Castano Ketones Ql (U) 40 mg/dl Abnormal NEGATIVE [facility] Comment on above: Performed By: #### FLORENCIO DUBOISRO #### [facility] [address] [place] [address] Dr. Sandra Castano LEUKOCYTES Negative Normal NEGATIVE [facility] Comment on above: Performed By: #### FLORENCIO DUBOISRO #### [facility] [address] [place] [address] Dr. Sandra Castano Nitrite Ql (U) Negative Normal NEGATIVE [facility] Comment on above: Performed By: #### FLORENCIO DUBOISRO #### [facility] [address] [place] [address] Dr. Sandra Castano pH (U) 5.0 [pH] Normal 5-9 [facility] Comment on above: Performed By: #### E CURTIS UMICRO #### [facility] [address] [address] [address] Sandra Castano Protein (U) [Mass/Vol] 30 mg/dL Abnormal NEGATIVE/ TRACE [facility] Comment on above: Performed By: #### E CURTIS UMICRO #### [facility] [address] [place] [address] Dr. Sandra Castano SPEC GRAVITY >=1.030 Abnormal 1.005-<=1.02 5 [facility] Comment on above: Performed By: #### E CURTIS UMICRO #### [facility] [address] [place] [address] Dr. Sandra Castano UR MICRO IND INDICATED Normal [facility] Comment on above: Performed By: #### Gillian ACEVEDO UMICRO #### [facility] [address] [place] [address] Dr. Sandra Castano Urobilinogen Qn (U) 0.2 {Tee'U}/dL Normal 0.2 - 1. 0 [facility] Comment on above: Performed By: #### ELAINA DUBOISICRO #### [facility] [address] [place] [address] Dr. Sandra Castano LIPASEon 05-27-2022 Lipase [Catalytic activity/Vol] 88.0 U/L Normal 73.0-393.0 [facility] Comment on above: Performed By: #### L IPA, CMP #### [facility] [address] [place] [address] Dr. Sandra Castano URon 05-27-2022 , QUAL Negative Normal NEGATIVE [facility] Comment on above: Performed By: #### P REGU #### [facility] [address] [place] [address] Dr. Sandra Castano PROF 14(COMP METB)on 022 Albumin [Mass/Vol] 4.0 g/dL Normal 3.4-5.0 [facility] Comment on above: Performed By: #### L IPA, CMP #### [facility] [address] [place] [address] Dr. Sandra Castano Albumin/Globulin [Mass ratio] 1.0 {ratio} Normal [facility] Comment on above: Performed By: #### L IPA, CMP #### [facility] [address] [place] [address] Dr. Sandra Castano ALP [Catalytic activity/Vol] 106 U/L Normal 46-116 [facility] Comment on above: Performed By: #### L IPA, CMP #### [facility] [address] [place] [address] Dr. Sandra Castano ALT [Catalytic activity/Vol] 24 U/L Normal 14-59 [facility] Comment on above: Performed By: #### L IPA, CMP #### [facility] [address] [place] [address] Dr. Sandra Castano Anion gap [Moles/Vol] 15.2 mmol/L Normal [facility] Comment on above: Performed By: #### L IPA, CMP #### [facility] [address] [place] [address] Dr. Sandra Castano AST [Catalytic activity/Vol] 21 U/L Normal 15-37 [facility] Comment on above: Performed By: #### L IPA, CMP #### [facility] [address] [place] [address] Dr. Sandra Castano Bilirubin [Mass/Vol] 0.4 mg/dL Normal 0.2-1.0 [facility] Comment on above: Performed By: #### L IPA, CMP #### [facility] [address] [place] [address] Dr. Sandra Castano Calcium [Mass/Vol] 9.6 mg/dL Normal 8.5-10.1 [facility] Comment on above: Performed By: #### L IPA, CMP #### [facility] [address] [place] [address] Dr. Sandra Castano Chloride [Moles/Vol] 99 mmol/L Normal 98-107 [facility] Comment on above: Performed By: #### L IPA, CMP #### [facility] [address] [place] [address] Dr. Sandra Castano CO2 [Moles/Vol] 25.2 mmol/L Normal 21.0-32.0 [facility] Comment on above: Performed By: #### L IPA, CMP #### [facility] [address] [place] [address] Dr. Sandra Castano Creatinine [Mass/Vol] 0.90 mg/dL Normal 0.55-1.02 [facility] Comment on above: Performed By: #### L IPA, CMP #### [facility] [address] [place] [address] Dr. Sandra Castano EGFR-AF [place]ER >60 Normal >=60 [facility] Comment on above: Performed By: #### L IPA, CMP #### [facility] [address] [place] [address] Dr. Sandra Castano EGFR-NON AF [place] >60 Normal >=60 [facility] Comment on above: Performed By: #### L IPA, CMP #### [facility] [address] [place] [address] Dr. Sandra Castano Globulin (S) [Mass/Vol] 4.2 g/dL Normal [facility] Comment on above: Performed By: #### L IPA, CMP #### [facility] [address] [place] [address] Dr. Sandra Castano Glucose [Mass/Vol] 171 mg/dL Critically high 74-106 [facility] Comment on above: Performed By: #### L IPA, CMP #### [facility] [address] [place] [address] Dr. Sandra Castano Potassium [Moles/Vol] 3.4 mmol/L Critically low 3.5-5.1 [facility] Comment on above: Performed By: #### L IPA, CMP #### [facility] [address] [place] [address] Dr. Sandra Castano Protein [Mass/Vol] 8.2 g/dL Normal 6.4-8.2 [facility] Comment on above: Performed By: #### L IPA, CMP #### [facility] [address] [place] [address] Dr. Sandra Castano Sodium [Moles/Vol] 136 mmol/L Normal 136-145 [facility] Comment on above: Performed By: #### L IPA, CMP #### [facility] [address] [place] [address] Dr. Sandra Castano Urea nitrogen [Mass/Vol] 14.0 mg/dL Normal 7.0-18.0 [facility] Comment on above: Performed By: #### L IPA, CMP #### [facility] [address] [place] [address] Dr. Sandra Castano Urea nitrogen/Creatinine [Mass ratio] 15.6 mg/mg Normal [facility] Comment on above: Performed By: #### L IPA, CMP #### [facility] [address] [place] [address] Dr. Sandra Castano URINE MICROSCOPIC ONLYon BACTERIA MODERATE Abnormal NONE SEEN [facility] Comment on above: Performed By: #### E RUR UMICRO #### [facility] [address] [place] [address] Dr. Sandra Castano Bacteria identified Cx Nom (U) INDICATED Normal [facility] Comment on above: Performed By: #### E RUR, UMICRO #### [facility] [address] [place] [address] Dr. Sandra Castano CAST NONE SEEN Normal NONE SEEN [facility] Comment on above: Performed By: #### E RUR, UMICRO #### [facility] [address] [place] [address] Dr. Sandra Castano Crystals LM Nom (Urine sed) NONE SEEN Normal NONE SEEN [facility] Comment on above: Performed By: #### E RUR, UMICRO #### [facility] [address] [place] [address] Dr. Sandra Castano Epithelial cells LM Ql (Urine sed) RARE Normal NONE SEEN /RARE [facility] Comment on above: Performed By: #### E RUR, UMICRO #### [facility] [address] [place] [address] Dr. Sandra Castano MUCOUS TRACE Abnormal NONE SEEN [facility] Comment on above: Performed By: #### E FLORENCIO ACEVEDORO #### [facility] [address] [address] [address] Sandra Castano RBC 2-5 Abnormal 0-2 [facility] Comment on above: Performed By: #### E FLORENCIO ACEVEDORO #### [facility] [address] [address] [address] Sandra Castano WBC 2-5 Abnormal NONE SEEN [facility] Comment on above: Performed By: #### E FLORENCIO ACEVEDORO #### [facility] [address] [address] [address] Sandra Castano YEAST PRESENT Abnormal NONE SEEN [facility] Comment on above: Performed By: #### E TAWANDA ACEVEDO #### [facility] [address] [address] [address] Sandra Castano XR ABD FLAT UP_PA [...] MAXIMILIANO TAYLOR Date: 2022-05-27 21:17 Normal [facility] VITAMIN B1 (THIAMINE)on 05-01 Vit. B1, Whole Blood 168.7 nmol/L Normal 66.5-200.0 [facility] Comment on above: Performed By: #### C ALCULI #### [facility] [address] [place] [address] Dr. Sandra Castano CBC AUTO DIFFon 05-07-2022 BASO # 0.1 103/ul Normal 0.0-0.1 [facility] Comment on above: Performed By: #### L IPA, CMP #### [facility] [address] [place] [address] Dr. Sandra Castano Basophils/100 WBC (Bld) 0.5 % Normal 0.2-2.0 [facility] Comment on above: Performed By: #### L IPA, CMP #### [facility] [address] [place] [address] Dr. Sandra Castano EO # 0.1 103/ul Normal 0.0-0.7 [facility] Comment on above: Performed By: #### L IPA, CMP #### [facility] [address] [place] [address] Dr. Sandra Castano Eosinophils/100 WBC (Bld) 1.3 % Normal 0.9-7.0 [facility] Comment on above: Performed By: #### L IPA, CMP #### [facility] [address] [place] [address] Dr. Sandra Castano Erythrocyte distribution width (RBC) [Ratio] 12.8 % Normal 11.0-15.0 [facility] Comment on above: Performed By: #### L IPA, CMP #### [facility] [address] [place] [address] Dr. Sandra Castano Hematocrit (Bld) [Volume fraction] 37.5 % Normal 36.0-48.0 [facility] Comment on above: Performed By: #### L IPA, CMP #### [facility] [address] [place] [address] Dr. Sandra Castano Hemoglobin (Bld) [Mass/Vol] 12.1 g/dL Normal 12.0-16.0 [facility] Comment on above: Performed By: #### L IPA, CMP #### [facility] [address] [place] [address] Dr. Sandra Castano IG # 0.03 10e3/ul Normal 0.00-0.03 [facility] Comment on above: Performed By: #### L IPA, CMP #### [facility] [address] [place] [address] Dr. Sandra Castano IG % 0.3 % Normal 0.0-0.5 [facility] Comment on above: Performed By: #### L IPA, CMP #### [facility] [address] [address] [address] Sandra Castano LYMPH # 2.6 103/ul Normal 1.2-3.8 [facility] Comment on above: Performed By: #### L IPA, CMP #### [facility] [address] [address] [address] Sandra Castano Lymphocytes/100 WBC (Bld) 28.8 % Normal 20.5-60.0 [facility] Comment on above: Performed By: #### L IPA, CMP #### [facility] [address] [place] [address] Dr. Sandra Castano MANUAL DIFF REQ NO Normal [facility] Comment on above: Performed By: #### L IPA, CMP #### [facility] [address] [address] [address] Sandra Castano MCH (RBC) [Entitic mass] 29.2 pg Normal 26.7-34.0 [facility] Comment on above: Performed By: #### L IPA, CMP #### [facility] [address] [place] [address] Dr. Sandra Castano MCHC (RBC) [Mass/Vol] 32.3 g/dL Normal 29.9-35.2 [facility] Comment on above: Performed By: #### L IPA, CMP #### [facility] [address] [place] [address] Dr. Sandra Castano MCV (RBC) [Entitic vol] 90.4 fL Normal 81.0-99.0 [facility] Comment on above: Performed By: #### L IPA, CMP #### [facility] [address] [place] [address] Dr. Sandra Castano MONO # 0.5 103/ul Normal 0.3-0.8 [facility] Comment on above: Performed By: #### L IPA, CMP #### [facility] [address] [place] [address] Dr. Sandra Castano Monocytes/100 WBC (Bld) 5.4 % Normal 1.7-12.0 [facility] Comment on above: Performed By: #### L IPA, CMP #### [facility] [address] [place] [address] Dr. Sandra Castano NEUT # 5.8 103/ul Normal 1.4-6.5 [facility] Comment on above: Performed By: #### L IPA, CMP #### [facility] [address] [place] [address] Dr. Sandra Castano Neutrophils/100 WBC (Bld) 63.7 % Normal 43.0-75.0 [facility] Comment on above: Performed By: #### L IPA, CMP #### [facility] [address] [place] [address] Dr. Sandra Castano Platelet mean volume (Bld) [Entitic vol] 11.0 fL Normal 9.5-13.5 [facility] Comment on above: Performed By: #### L IPA, CMP #### [facility] [address] [place] [address] Dr. Sandra Castano PLT 370 103/ul Normal 150-450 [facility] Comment on above: Performed By: #### L IPA, CMP #### [facility] [address] [place] [address] Dr. Sandra Castano RBC 4.15 106/ul Critically low 4.20-5.40 [facility] Comment on above: Performed By: #### L IPA, CMP #### [facility] [address] [place] [address] Dr. Sandra Castano WBC 9.1 103/ul Normal 4.0-11.0 [facility] Comment on above: Performed By: #### L IPA, CMP #### [facility] [address] [place] [address] Dr. Sandra Castano FERRITINon 05-07-2022 Ferritin [Mass/Vol] 180.0 ng/mL Critically high 6.2-137.0 [facility] Comment on above: Performed By: #### L IPA, CMP #### [facility] [address] [place] [address] Dr. Sandra Castano IRON AND TIBCon 05-07-2022 % SATURATION 19.4 % Normal [facility] Comment on above: Performed By: #### L IPA, CMP #### [facility] [address] [place] [address] Dr. Sandra Castano Iron [Mass/Vol] 43.0 ug/dL Critically low 50.0-170.0 [facility] Comment on above: Performed By: #### L IPA, CMP #### [facility] [address] [place] [address] Dr. Sandra Castano TIBC DIRECT 222.0 ug/dL Critically low 250.0-450.0 [facility] Comment on above: Performed By: #### L IPA, CMP #### [facility] [address] [place] [address] Dr. Sandra Castano MAGNESIUMon 05-07-2022 Magnesium [Mass/Vol] 1.8 mg/dL Normal 1.8-2.4 [facility] Comment on above: Performed By: #### M G, CMP, PHOS #### [facility] [address] [place] [address] Dr. Sandra Castano PHOSPHORUSon 05-07-2022 Phosphate [Mass/Vol] 4.4 mg/dL Normal 2.6-4.7 [facility] Comment on above: Performed By: #### M G, CMP, PHOS #### [facility] [address] [place] [address] Dr. Sandra Castano PROF 14(COMP METB)on 022 Albumin [Mass/Vol] 3.6 g/dL Normal 3.4-5.0 [facility] Comment on above: Performed By: #### M G, CMP, PHOS #### [facility] [address] [place] [address] Dr. Sandra Castano Albumin/Globulin [Mass ratio] 0.9 {ratio} Normal [facility] Comment on above: Performed By: #### M G, CMP, PHOS #### [facility] [address] [place] [address] Dr. Sandra Castano ALP [Catalytic activity/Vol] 106 U/L Normal 46-116 [facility] Comment on above: Performed By: #### M G, CMP, PHOS #### [facility] [address] [address] [address] Sandra Castano ALT [Catalytic activity/Vol] 61 U/L Critically high 14-59 [facility] Comment on above: Performed By: #### M G, CMP, PHOS #### [facility] [address] [address] [address] Sandra Castano Anion gap [Moles/Vol] 12.2 mmol/L Normal [facility] Comment on above: Performed By: #### M G, CMP, PHOS #### [facility] [address] [place] [address] Dr. Sandra Castano AST [Catalytic activity/Vol] 35 U/L Normal 15-37 [facility] Comment on above: Performed By: #### M Selin, CMP, PHOS #### [facility] [address] [place] [address] Dr. Sandra Castano Bilirubin [Mass/Vol] 0.5 mg/dL Normal 0.2-1.0 [facility] Comment on above: Performed By: #### M Selin, CMP, PHOS #### [facility] [address] [place] [address] Dr. Sandra Castano Calcium [Mass/Vol] 9.7 mg/dL Normal 8.5-10.1 [facility] Comment on above: Performed By: #### M G, CMP, PHOS #### [facility] [address] [place] [address] Dr. Sandra Castano Chloride [Moles/Vol] 101 mmol/L Normal 98-107 [facility] Comment on above: Performed By: #### M G, CMP, PHOS #### [facility] [address] [place] [address] Dr. Sandra Castano CO2 [Moles/Vol] 30.9 mmol/L Normal 21.0-32.0 [facility] Comment on above: Performed By: #### M G, CMP, PHOS #### [facility] [address] [address] [address] Sandra Castano Creatinine [Mass/Vol] 0.74 mg/dL Normal 0.55-1.02 [facility] Comment on above: Performed By: #### M G, CMP, PHOS #### [facility] [address] [address] [address] Sandra Castano EGFR-AF [place] >60 Normal >=60 [facility] Comment on above: Performed By: #### M G, CMP, PHOS #### [facility] [address] [address] [address] Sandra Castano EGFR-NON AF [place] >60 Normal >=60 [facility] Comment on above: Performed By: #### M G, CMP, PHOS #### [facility] [address] [address] [address] Sandra Castano Globulin (S) [Mass/Vol] 3.9 g/dL Normal [facility] Comment on above: Performed By: #### M G, CMP, PHOS #### [facility] [address] [address] [address] Sandra Castano Glucose [Mass/Vol] 98 mg/dL Normal 74-106 [facility] Comment on above: Performed By: #### M G, CMP, PHOS #### [facility] [address] [address] [address] Sandra Castano Potassium [Moles/Vol] 4.1 mmol/L Normal 3.5-5.1 [facility] Comment on above: Performed By: #### M G, CMP, PHOS #### [facility] [address] [address] [address] Sandra Castano Protein [Mass/Vol] 7.5 g/dL Normal 6.4-8.2 [facility] Comment on above: Performed By: #### M G, CMP, PHOS #### [facility] [address] [address] [address] Sandra Castano Sodium [Moles/Vol] 140 mmol/L Normal 136-145 [facility] Comment on above: Performed By: #### M G, CMP, PHOS #### [facility] [address] [address] [address] Sandra Castano Urea nitrogen [Mass/Vol] 7.0 mg/dL Normal 7.0-18.0 [facility] Comment on above: Performed By: #### M G, CMP, PHOS #### [facility] [address] [address] [address] Sandra Castano Urea nitrogen/Creatinine [Mass ratio] 9.5 mg/mg Normal [facility] Comment on above: Performed By: #### M G, CMP, PHOS #### [facility] [address] [place] [address] Dr. Sandra Castano VIT B12 AND FOLATEon 022 Cobalamin (Vitamin B12) [Mass/Vol] 1075.0 pg/mL Critically high 193.0-986.0 [facility] Comment on above: Performed By: #### L IPA, CMP #### [facility] [address] [place] [address] Dr. Sandra Castano FOLATE 9.80 ng/mL Normal 8.60-58.90 [facility] Comment on above: Performed By: #### L IPA, CMP #### [facility] [address] [place] [address] Dr. Sandra Castano VITAMIN D 25 OHon 05-07-2022 VIT D 25-OH 96.8 ng/mL Normal [facility] Comment on above: Performed By: #### L IPA, CMP #### [facility] [address] [place] [address] Dr. Sandra Castano VIT D RANGES SEE BELOW Normal [facility] Comment on above: Result Comment: <20 ng/mL Vit D deficient 20 - <30 ng/mL Vit D insufficient 30 - 100 ng/mL Vit D sufficient >100 ng/mL Potential Toxicity Performed By: #### L IPA, CMP #### [facility] [address] [place] [address] Dr. Sandra Castano BLOOD BANKOrdered By: Latrice Lpoez on 03-24-2022 ABO/Rh Interp AB NEG Invalid Interpretation Code [facility] BB Subsection ABSC Gel Interp Negative (03/24/22 8:33 AM) Normal [facility] BB Subsection VITAMIN B1 (THIAMINE)on 12-30 Vit. B1, Whole Blood 154.0 nmol/L Normal 66.5-200.0 [facility] Comment on above: Performed By: #### V ITB1T #### [facility] [address] [address] [address] Sandra Castano VIT D 25-OH LABCORPon 2021 Vitamin D, 25-Hydroxy 98.0 ng/mL Normal 30.0-100.0 [facility] Comment on above: Result Comment: Wanda min D deficiency has been defined by the [place] [employer] and an Endocrine Society practice guideline as a level of serum 25-OH vitamin D less than 20 ng/mL (1,2). The Endocrine Society went on to further define vitamin D insufficiency as a level between 21 and 29 ng/mL (2). 1. IOM ([place] [employer]). 2010. Dietary reference intakes for calcium and D. [place]: The National Academies Press. 2. [place] MF, Maya [place], Kesha OLGUIN, et al. Evaluation, treatment, and prevention of vitamin D deficiency: an Endocrine Society clinical practice guideline. JCEM. 2010; 96(7):1911-30. Performed By: #### L IPA, CMP #### [facility] [address] [address] [address] Sandra Castano CBC AUTO DIFFon 01-13-2022 BASO # 0.0 103/ul Normal 0.0-0.1 [facility] Comment on above: Performed By: #### L IPA, CMP #### [facility] [address] [address] [address] Sandra Castano Basophils/100 WBC (Bld) 0.5 % Normal 0.2-2.0 [facility] Comment on above: Performed By: #### L IPA, CMP #### [facility] [address] [address] [address] Sandra Castano EO # 0.1 103/ul Normal 0.0-0.7 [facility] Comment on above: Performed By: #### L IPA, CMP #### [facility] [address] [place] [address] Dr. Sandra Castano Eosinophils/100 WBC (Bld) 2.0 % Normal 0.9-7.0 [facility] Comment on above: Performed By: #### L IPA, CMP #### [facility] [address] [place] [address] Dr. Sandra Castano Erythrocyte distribution width (RBC) [Ratio] 13.7 % Normal 11.0-15.0 [facility] Comment on above: Performed By: #### L IPA, CMP #### [facility] [address] [place] [address] Dr. Sandra Castano Hematocrit (Bld) [Volume fraction] 39.9 % Normal 36.0-48.0 [facility] Comment on above: Performed By: #### L IPA, CMP #### [facility] [facility] [address] [place] [address] Dr. Sandra Castano Hemoglobin (Bld) [Mass/Vol] 13.0 g/dL Normal 12.0-16.0 [facility] Comment on above: Performed By: #### L IPA, CMP #### [facility] [address] [place] [address] Dr. Sandar Castano IG # 0.02 10e3/ul Normal 0.00-0.03 [facility] Comment on above: Performed By: #### L IPA, CMP #### [facility] [address] [place] [address] Dr. Sandra Castano IG % 0.3 % Normal 0.0-0.5 [facility] Comment on above: Performed By: #### L IPA, CMP #### [facility] [address] [place] [address] Dr. Sandra Castano LYMPH # 1.6 103/ul Normal 1.2-3.8 [facility] Comment on above: Performed By: #### L IPA, CMP #### [facility] [address] [place] [address] Dr. Sandra Castano Lymphocytes/100 WBC (Bld) 27.5 % Normal 20.5-60.0 [facility] Comment on above: Performed By: #### L IPA, CMP #### [facility] [address] [place] [address] Dr. Sandra Castano MANUAL DIFF REQ NO Normal [facility] Comment on above: Performed By: #### L IPA, CMP #### [facility] [address] [place] [address] Dr. Sandra Castano MCH (RBC) [Entitic mass] 29.2 pg Normal 26.7-34.0 [facility] Comment on above: Performed By: #### L IPA, CMP #### [facility] [address] [place] [address] Dr. Sandra Castano MCHC (RBC) [Mass/Vol] 32.6 g/dL Normal 29.9-35.2 [facility] Comment on above: Performed By: #### L IPA, CMP #### [facility] [address] [place] [address] Dr. Sandra Castano MCV (RBC) [Entitic vol] 89.7 fL Normal 81.0-99.0 [facility] Comment on above: Performed By: #### L IPA, CMP #### [facility] [address] [place] [address] Dr. Sandra Castano MONO # 0.4 103/ul Normal 0.3-0.8 [facility] Comment on above: Performed By: #### L IPA, CMP #### [facility] [address] [place] [address] Dr. Sandra Castano Monocytes/100 WBC (Bld) 6.6 % Normal 1.7-12.0 [facility] Comment on above: Performed By: #### L IPA, CMP #### [facility] [address] [place] [address] Dr. Sandra Castano NEUT # 3.7 103/ul Normal 1.4-6.5 [facility] Comment on above: Performed By: #### L IPA, CMP #### [facility] [address] [place] [address] Dr. Sandra Castano Neutrophils/100 WBC (Bld) 63.1 % Normal 43.0-75.0 [facility] Comment on above: Performed By: #### L IPA, CMP #### [facility] [address] [place] [address] Dr. Sandra Casatno Platelet mean volume (Bld) [Entitic vol] 11.6 fL Normal 9.5-13.5 [facility] Comment on above: Performed By: #### L IPA, CMP #### [facility] [address] [place] [address] Dr. Sandra Castano PLT 256 103/ul Normal 150-450 [facility] Comment on above: Performed By: #### L IPA, CMP #### [facility] [address] [place] [address] Dr. Sandra Castano RBC 4.45 106/ul Normal 4.20-5.40 [facility] Comment on above: Performed By: #### L IPA, CMP #### [facility] [address] [place] [address] Dr. Sandra Castano WBC 5.9 103/ul Normal 4.0-11.0 [facility] Comment on above: Performed By: #### L IPA, CMP #### [facility] [address] [place] [address] Dr. Sandra Castano FERRITINon 01-13-2022 Ferritin [Mass/Vol] 108.0 ng/mL Normal 6.2-137.0 [facility] Comment on above: Performed By: #### C ALCULI #### [facility] [address] [place] [address] Dr. Sandra Castano IRON AND TIBCon 01-13-2022 % SATURATION 20.6 % Normal [facility] Comment on above: Performed By: #### C ALCULI #### [facility] [address] [place] [address] Dr. Sandra Castano Iron [Mass/Vol] 47.0 ug/dL Critically low 50.0-170.0 [facility] Comment on above: Performed By: #### C ALCULI #### [facility] [address] [place] [address] Dr. Sandra Castano TIBC DIRECT 228.0 ug/dL Critically low 250.0-450.0 [facility] Comment on above: Performed By: #### C ALCULI #### [facility] [address] [place] [address] Dr. Sandra Castano MAGNESIUMon 01-13-2022 Magnesium [Mass/Vol] 1.7 mg/dL Critically low 1.8-2.4 [facility] Comment on above: Performed By: #### C ALCULI #### [facility] [address] [place] [address] Dr. Sandra Castano PHOSPHORUSon 01-13-2022 Phosphate [Mass/Vol] 3.4 mg/dL Normal 2.6-4.7 [facility] Comment on above: Performed By: #### L IPA, CMP #### [facility] [address] [place] [address] Dr. Snadra Castano PROF 14(COMP METB)on 022 Albumin [Mass/Vol] 3.8 g/dL Normal 3.4-5.0 [facility] Comment on above: Performed By: #### C ALCULI #### [facility] [address] [place] [address] Dr. Sandra Csatano Albumin/Globulin [Mass ratio] 1.1 {ratio} Normal [facility] Comment on above: Performed By: #### C ALCULI #### [facility] [address] [place] [address] Dr. Sandra Castano ALP [Catalytic activity/Vol] 78 U/L Normal 46-116 [facility] Comment on above: Performed By: #### C ALCULI #### [facility] [address] [place] [address] Dr. Sandra Castano ALT [Catalytic activity/Vol] 34 U/L Normal 14-59 [facility] Comment on above: Performed By: #### C ALCULI #### [facility] [address] [place] [address] Dr. Sandra Castano Anion gap [Moles/Vol] 10.8 mmol/L Normal [facility] Comment on above: Performed By: #### C ALCULI #### [facility] [address] [address] [address] Sandra Castano AST [Catalytic activity/Vol] 20 U/L Normal 15-37 [facility] Comment on above: Performed By: #### C ALCULI #### [facility] [address] [address] [address] Sandra Castano Bilirubin [Mass/Vol] 0.5 mg/dL Normal 0.2-1.0 [facility] Comment on above: Performed By: #### C ALCULI #### [facility] [address] [address] [address] Sandra Castano Calcium [Mass/Vol] 9.2 mg/dL Normal 8.5-10.1 [facility] Comment on above: Performed By: #### C ALCULI #### [facility] [address] [place] [address] Dr. Sandra Castano Chloride [Moles/Vol] 102 mmol/L Normal 98-107 [facility] Comment on above: Performed By: #### C ALCULI #### [facility] [address] [place] [address] Dr. Sandra Castano CO2 [Moles/Vol] 31.2 mmol/L Normal 21.0-32.0 [facility] Comment on above: Performed By: #### C ALCULI #### [facility] [address] [place] [address] Dr. Sandra Castano Creatinine [Mass/Vol] 0.78 mg/dL Normal 0.55-1.02 [facility] Comment on above: Performed By: #### C ALCULI #### [facility] [address] [place] [address] Dr. Sandra Castano EGFR-AF [place] >60 Normal >=60 [facility] Comment on above: Performed By: #### C ALCULI #### [facility] [address] [address] [address] Sandra Castano EGFR-NON AF [place] >60 Normal >=60 [facility] Comment on above: Performed By: #### C ALCULI #### [facility] [address] [place] [address] Dr. Sandra Castano Globulin (S) [Mass/Vol] 3.6 g/dL Normal [facility] Comment on above: Performed By: #### C ALCULI #### [facility] [address] [place] [address] Dr. Sandra Castano Glucose [Mass/Vol] 101 mg/dL Normal 74-106 [facility] Comment on above: Performed By: #### C ALCULI #### [facility] [address] [place] [address] Dr. Sandra Castano Potassium [Moles/Vol] 4.0 mmol/L Normal 3.5-5.1 [facility] Comment on above: Performed By: #### C ALCULI #### [facility] [address] [place] [address] Dr. Sandra Castano Protein [Mass/Vol] 7.4 g/dL Normal 6.4-8.2 [facility] Comment on above: Performed By: #### C ALCULI #### [facility] [address] [place] [address] Dr. Sandra Castaon Sodium [Moles/Vol] 140 mmol/L Normal 136-145 [facility] Comment on above: Performed By: #### C ALCULI #### [facility] [address] [place] [address] Dr. Sandra Castano Urea nitrogen [Mass/Vol] 14.0 mg/dL Normal 7.0-18.0 [facility] Comment on above: Performed By: #### C ALCULI #### [facility] [address] [place] [address] Dr. Sandra Castano Urea nitrogen/Creatinine [Mass ratio] 17.9 mg/mg Normal [facility] Comment on above: Performed By: #### C ALCULI #### [facility] [address] [place] [address] Dr. Sandra Castano VIT B12 AND FOLATEon 022 Cobalamin (Vitamin B12) [Mass/Vol] 1475.0 pg/mL Critically high 193.0-986.0 [facility] Comment on above: Performed By: #### C ALCULI #### [facility] [address] [place], [place] [address] Dr. Sandra Castano FOLATE 11.80 ng/mL Normal 8.60-58.90 [facility] Comment on above: Performed By: #### C GEETHA #### [facility] [address] [place], [place] [address] Dr. Sandra Castano MG MAMM SCREEN 3D PENG CADon 12-03-2021 MG MAMM SCREEN 3D PENG CAD Patient: JASMIN CALVILLO Exam Date: 12/03/2021 : 1975 Gender:F Ordering : DR LUDY LAINEZ . Admission #: [id number] Family : Order #: [id number] CLICK HERE TO VIEW EXAM RADIOLOGY REPORT [...] colon cancer at age 67. LOCATION: [facility] BREAST COMPOSITION: Scattered areas fibroglandular density. FINDINGS: [...] Cedeño M.D. on 12/03/2021 at 12:49 Normal [facility] LOWER EXTREMITY JOINT SURVEY on 02-19-2021 LOWER EXTREMITY JOINT SURVEY [facility] Department of Radiology [address] [place] [id number] == Patient Name: JASMIN CALVILLO : 1975 Sex: F Age: Race: White Pt. 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 Electronically signed: Dylon Duenas. Transcribed by: [email or web address], User Resident: Electronically Signed by: DYLON DUENAS @ 02/20/2021 12:06 PM Normal [facility] Comment on above: Order Comment: Evalu ate Vital Signs Date Time Vital Sign Value Performing Clinician Facility 06-10-2023 09:20-0500 Diastolic blood pressure 80 mm[Hg] Romi Lue [facility] 06-10-2023 09:20-0500 Mean blood pressure 101 mm[Hg] Romi Lue [facility] 06-10-2023 09:20-0500 Systolic blood pressure 142 mm[Hg] Romi Lue [facility] 06-10-2023 09:06-0500 Blood Pressure Location Romi Lue [facility] 06-10-2023 09:06-0500 Diastolic blood pressure 86 mm[Hg] Romi Lue [facility] 06-10-2023 09:06-0500 Heart rate 71 /min Romi Lue [facility] 06-10-2023 09:06-0500 Systolic blood pressure 144 mm[Hg] Romi Lue [facility] 09-04-2022 08:32-0400 Blood Pressure Location Romi Lue [facility] 09-04-2022 08:32-0400 Diastolic blood pressure 82 mm[Hg] Romi Lue [facility] 09-04-2022 08:32-0400 Heart rate 57 /min Romi Lue [facility] 09-04-2022 08:32-0400 Respiratory rate 16 /min Romi Lue [facility] 09-04-2022 08:32-0400 Systolic blood pressure 138 mm[Hg] Romi Lue [facility] 07-02-2022 09:14-0500 Blood Pressure Location Romi Lue [facility] 07-02-2022 09:14-0500 Diastolic blood pressure 78 mm[Hg] Romi Lue [facility] 07-02-2022 09:14-0500 Heart rate 68 /min Romi Lue [facility] 07-02-2022 09:14-0500 Respiratory rate 16 /min Romi Lue [facility] 07-02-2022 09:14-0500 Systolic blood pressure 124 mm[Hg] Romi Lue [facility] 03-24-2022 16:38-0400 Blood Pressure Location Miles Guevara [facility] 03-24-2022 16:38-0400 Diastolic blood pressure 78 mm[Hg] Miles Guevara [facility] 03-24-2022 16:38-0400 Heart rate 61 /min Miles Guevara [facility] 03-24-2022 16:38-0400 Mean blood pressure 95 mm[Hg] Miles Guevara [facility] 03-24-2022 16:38-0400 Respiratory rate 18 /min Miles Guevara [facility] 03-24-2022 16:38-0400 SaO2% (BldA) [Mass fraction] 98 % Miles Ismael [facility] 03-24-2022 16:38-0400 Systolic blood pressure 131 mm[Hg] Miles Guevara [facility] 03-24-2022 15:16-0400 Blood Pressure Location Miles Guevara [facility] 03-24-2022 15:16-0400 Diastolic blood pressure 75 mm[Hg] Miles Guevara [facility] 03-24-2022 15:16-0400 Heart rate 66 /min Miles Guevara [facility] 03-24-2022 15:16-0400 Mean blood pressure 96 mm[Hg] Miles Guevara [facility] 03-24-2022 15:16-0400 Respiratory rate 18 /min Miles Guevara [facility] 03-24-2022 15:16-0400 SaO2% (BldA) [Mass fraction] 98 % Miles Guevara [facility] 03-24-2022 15:16-0400 Systolic blood pressure 138 mm[Hg] Miles Guevara [facility] 03-24-2022 13:37-0400 Blood Pressure Location Miles Guevara [facility] 03-24-2022 13:37-0400 Diastolic blood pressure 74 mm[Hg] Miles Guevara [facility] 03-24-2022 13:37-0400 Heart rate 65 /min Miles Guevara [facility] 03-24-2022 13:37-0400 Mean blood pressure 106 mm[Hg] Miles Guevara [facility] 03-24-2022 13:37-0400 Respiratory rate 18 /min Miles Ismael [facility] 03-24-2022 13:37-0400 SaO2% (BldA) [Mass fraction] 100 % Miles Ismael [facility] 03-24-2022 13:37-0400 Systolic blood pressure 171 mm[Hg] Miles Ismael [facility] 03-24-2022 13:30-0400 Body temperature 98.24 [degF] Miles Ismael [facility] 03-24-2022 13:30-0400 Respiratory rate 10 /min Miles Ismael [facility] 03-24-2022 13:15-0400 Respiratory rate 11 /min Miles Ismael [facility] 03-24-2022 13:00-0400 Respiratory rate 13 /min Miles Ismael [facility] 03-24-2022 12:30-0400 Body temperature 98.06 [degF] Miles Ismael [facility] 03-24-2022 08:21-0400 Body temperature 97.7 [degF] Miles Ismael [facility] 03-24-2022 08:21-0400 Heart rate 72 /min Miles Guevara [facility] Encounters Encounter Date Encounter Type Care Provider Facility Start: 2023 ambulatory Romi Sarmiento Facility:[facility] Start: 06-10-2023 End: 06-11-2023 ambulatory Romi Sarmiento Facility:[facility] Start: 06-10-2023 End: 06-10-2023 Patient encounter procedure [facility]arm[facility] Start: 12-03-2022 End: 12-04-2022 ambulatory Romi Sarmiento Facility:[facility] Start: 10-24-2022 End: 10-25-2022 ambulatory Radha L Felipa Facility:[facility] Start: 10-24-2022 End: 10-24-2022 Lab Drop off Radha L Felipa [facility] Start: 10-20-2022 ambulatory Romi M. Lue Facility:[facility] Start: 10-08-2022 ambulatory Romi Lue Facility:[facility] Start: 09-04-2022 End: 09-05-2022 ambulatory ROMI M LUE . Facility: Start: 09-04-2022 End: 09-05-2022 ambulatory Romi M. Lue Facility:[facility] Start: 09-04-2022 End: 09-04-2022 Patient encounter procedure Romi M. Lue [facility] Start: 08-30-2022 End: 08-31-2022 ambulatory ROMI M LUE . Facility:[facility] Start: 07-30-2022 End: 07-31-2022 ambulatory ROMI M LUE . Facility:[facility] Start: 07-24-2022 Encounter for preprocedural laboratory examination ROMI M LUE . [facility] Start: 07-18-2022 End: 07-19-2022 ambulatory ERICK KRAFT Facility:[facility] Start: 07-18-2022 End: 07-19-2022 Encounter for preprocedural laboratory examination ERICK KRAFT Facility:[facility] Start: 07-10-2022 End: 07-11-[address] ETTA CEDEÑO Facility:[facility] Start: 07-02-2022 End: 07-02-2022 Patient encounter procedure Romi M. Lue [facility] Start: 06-30-2022 End: 07-01-[address] ETTA CEDEÑO Facility:[facility] Start: 06-13-2022 End: 06-13-2022 Patient encounter procedure Romi M. Lue [facility] Wendy Start: 06-06-2022 End: 06-07-[address] ETTA CEDEÑO Facility:[facility] Start: 05-27-2022 End: 05-28-[address] CINDI Jerry Facility:[facility] Start: 05-07-2022 End: 05-08-[address] DOCTOR PALACIOS Facility:[facility] Start: 03-24-2022 End: 03-24-2022 Admission to same day surgery center Miles Guevara [facility] Start: 01-13-2022 End: 01-14-2022 ambulatory MARY SOTO Facility:[facility] Start: 12-03-2021 End: 12-04-[address] LUDY LAINEZ . Facility:[facility] Procedures Date Procedure Procedure Detail Performing Clinician Start: 07-30-2022 Lipoatrophy (disorder) Radha Leo Start: 06-01-1992 History of operative procedure on knee Miles Guevara Esophagogastrostomy, antesternal or antethoracic Miles Guevara Extraction of wisdom tooth M nohemy Ismael H/O: tubal ligation Miles Guevara Hand tendon operation Michjose angel Guevara Immunizations Immunization Date Immunization Notes Care Provider Fa [facility] 03-17-2023 influenza virus vaccine, unspecified formulation Romi Sarmiento [facility] 03-06-2023 influenza virus vaccine, unspecified formulation Romi Sarmiento [facility] 04-28-2022 influenza virus vaccine, unspecified formulation Romi Sarmiento [facility] 04-28-2022 SARS-CoV-2 (COVID-19 ) [id number] Romi Lue [facility] 05-21-2021 SARS-CoV-2 (COVID-19 ) mRNA BNT-162b2 vax Romi Lue [facility] 03-08-2021 influenza virus vaccine, unspecified formulation Romi Lue [facility] 09-20-2020 SARS-CoV-2 (COVID-19 ) mRNA BNT-162b2 vax Romi Lue [facility] 08-30-2020 SARS-CoV-2 (COVID-19 ) mRNA BNT-162b2 vax Romi Lue [facility] 02-08-2020 influenza virus vaccine, unspecified formulation Romi Lue [facility] 02-15-2019 influenza virus vaccine, unspecified formulation Romi Lue [facility] 01-29-2019 influenza virus vaccine, unspecified formulation Romi Lue [facility] 03-06-2018 influenza virus vaccine, unspecified formulation Romi Lue [facility] 02-26-2015 influenza virus vaccine, unspecified formulation Romi Lue [facility] 02-25-2014 influenza virus vaccine, unspecified formulation Romi Lue [facility] 04-24-2013 influenza virus vaccine, unspecified formulation Romi Sarmiento [facility] Payers Date Payer Category Payer Unknown [id number] 2.16.84 [id number] 1975 Unknown [id number] 2.16.84 [id number] 1975 Unknown [id number] 2.16.84 0.1.622939.3.579.2.593 1975 Unknown [id number] 2.16.84 0.1.249271.3.579.2.593 1975 Unknown [id number] 2.16.84 0.1.576436.3.579.2.593 1975 Unknown [id number] 2.16.84 0.1.540177.3.579.2.593 1975 Unknown [id number] 2.16.84 0.1.263959.3.579.2.593 1975 Unknown [id number] 2.16.84 0.1.372341.3.579.2.593 1975 Unknown [id number] 2.16.84 0.1.471461.3.579.2.593 1975 Unknown [id number] 2.16.84 0.1.251537.3.579.2.593 1975 Unknown [id number] 2.16.84 0.1.000327.3.579.2.593 1975 Unknown [id number] 2.16.8 40.1.083659.3.579.2.727 1975 Unknown [id number] 2.16.8 40.1.748399.3.579.2.727 1975 Unknown [id number] 2.16.8 40.1.239067.3.579.2.727 1975 Unknown [id number] 2.16.8 40.1.468843.3.579.2.727 1975 Unknown [id number] 2.16.8 40.1.796219.3.579.2.727 1975 Unknown [id number] 2.16.8 40.1.112102.3.579.2.727 1975 Unknown [id number] 2.16.8 40.1.279611.3.579.2.727 1975 Unknown [id number] 2.16.8 40.1.673056.3.579.2.727 1959 Unknown [id number] 1960 Unknown [id number] Self-pay Self Pay [id number] Social History Date Type Detail Facility Tobacco smoking stat [facility] Unknown if ever smoked [facility] Start: 1975 Sex Assigned At Female F [facility] Tobacco smoking status No Smokin g Status Entered [facility] Sex Assigned At Female [facility] Start: 06-13-2022 End: 06-10-2023 Tobacco smoking status Never smoked tobacco (finding) [facility] Tobacco smoking status Never [facility] Medical Equipment Procedure Code Equipment Code Equipment [...] Guevara DO 03/24/22 Non Biological Knee R [id number] [facility] Start: 03-24-2022 Goals Date Patient Goal Desired Activity /State Functional Status Date Assessment Result Facility 06-10-2023 Functional Status N/A [facility] 09-04-2022 Functional Status N/A [facility] 07-02-2022 Functional Status N/A [facility] 06-13-2022 Functional Status N/A [facility] Wendy Clinical Notes 03-24-2022 to 06-10-2023 Note Date & Type Note Facility 06-10-2023 Hospital Discharg e instructions Patient Education 06/10/2023 09:51:36 Dietary Guidelines to Help Prevent Kidney Stones Dietary Guidelines to Help Prevent Kidney Stones Kidney stones are deposits of minerals and salts that form inside your kidneys. Your risk of developing kidney stones may be greater depending on your diet, your lifestyle, the medicines you take, and whether you have certain medical conditions. Most people can lower their risks of developing kidney stones by following these dietary guidelines. Your dietitian may give you more specific instructions depending on your overall health and the type of kidney stones you tend to develop. What are tips for following this plan? Reading food labels Choose foods with no salt added or low-salt labels. Limit your salt (sodium) intake to less than 1,500 mg a day. Choose foods with calcium for each meal and snack. Try to eat about 300 mg of calcium at each meal. Foods that contain 200 500 mg of calcium a serving include: ?8 oz (237 mL) of milk, eueeeyi-xazpdmzbqnme-mjmgs milk, and calcium-fortifiedfruit juice. Calcium-fortified means that calcium has been added to these drinks. ?8 oz (237 mL) of kefir, yogurt, and soy yogurt. ?4 oz (114 g) of tofu. ?1 oz (28 g) of cheese. ?1 cup (150 g) of dried figs. ?1 cup (91 g) of cooked broccoli. ?One 3 oz (85 g) can of sardines or mackerel. Most people need 1,000 1,500 mg of calcium a day. Talk to your dietitian about how much calcium is recommended for you. Shopping Buy plenty of fresh fruits and vegetables. Most people do not need to avoid fruits and vegetables, even if these foods contain nutrients that may contribute to kidney stones. When shopping for convenience foods, choose: ?Whole pieces of fruit. ?Pre-made salads with dressing on the side. ?Low-fat fruit and yogurt smoothies. Avoid buying frozen meals or prepared deli foods. These can be high in sodium. Look for foods with live cultures, such as yogurt and kefir. Choose high-fiber grains, such as whole-wheat breads, oat bran, and wheat cereals. Cooking Do not add salt to food when cooking. Place a salt shaker on the table and allow each person to add their own salt to taste. Use vegetable protein, such as beans, textured vegetable protein (TVP), or tofu, instead of meat in pasta, casseroles, and soups. Meal planning Eat less salt, if told by your dietitian. To do this: ?Avoid eating processed or pre-made food. ?Avoid eating fast food. Eat less [...] fish, or seafood. ?When you prepare animal proteins, cut pieces into small portion sizes. For most meat and fish, one serving is about the size of the palm of your hand. Eat at least five servings of fresh fruits and vegetables each day. To do this: ?Keep fruits and vegetables on hand for snacks. ?Eat one piece of fruit or a handful of berries with breakfast. ?Have a salad and fruit at lunch. ?Have two kinds of vegetables at dinner. You may be told to limit foods that are high in a substance called oxalate. These include: ?Spinach (cooked), rhubarb, beets, sweet potatoes, and Chadian chard. ?Peanuts. ?Potato chips, ukrainian fries, and baked potatoes with skin on. ?Nuts and nut products. ?Chocolate. If you regularly take a diuretic medicine, make sure to eat at least 1 or 2 servings of fruits or vegetables that are high in potassium each day. These include: ?Avocado. ?Banana. ?Jessamine, prune, carrot, or tomato juice. ?Baked potato. ?Cabbage. ?Beans and split peas. Lifestyle Drink enough fluid to keep your urine pale yellow. This is the most important thing you can do. Spread your fluid intake throughout the day. If you drink alcohol: ?Limit how much you have to: ?0 1 drink a day for women who are not . ?0 2 drinks a day for men. ?Know how much alcohol is in your drink. In the [place] one drink equals one 12 oz bottle of beer (355 mL), one 5 oz glass of wine (148 mL), or one 1 oz glass of hard liquor (44 mL). Lose weight if told by your health care provider. Work with your dietitian to find an eating plan and weight loss strategies that work best for you. General information Talk to your health care provider and dietitian about taking daily supplements. Depending on your health and the cause of your kidney stones, you may be told: ?Do not take high-dose supplements of vitamin C (1,000 mg a day or more). ?To take a calcium supplement. ?To take a daily probiotic supplement. ?To take other supplements such as magnesium, fish oil, or vitamin B6. Take uvtp-jja-xjjyist and prescription medicines only as told by your health care provider. These include supplements. What foods should I limit? Limit your intake of the following foods, or eat them as told by your dietitian. Vegetables Spinach. Rhubarb. Beets. Canned vegetables. Pickles. Olives. Baked potatoes with skin. Grains Wheat bran. Baked goods. Salted crackers. Cereals high in sugar. Meats and other proteins Nuts. Nut butters. Large portions of meat, poultry, or fish. Salted, precooked, or cured meats, such as sausages, meat loaves, and hot dogs. Dairy Cheeses. Beverages Regular soft drinks. Regular vegetable juice. Seasonings and condiments Seasoning blends with salt. Salad dressings. Soy sauce. Ketchup. Barbecue sauce. Other foods Canned soups. Canned pasta sauce. Casseroles. Pizza. Lasagna. Frozen meals. Potato chips. Armenian fries. The items listed above may not be a complete list of foods and beverages you should limit. Contact a dietitian for more information. What foods should I avoid? Talk to your dietitian about specific foods you should avoid based on the type of kidney stones you have and your overall health. Fruits Grapefruit. The item listed above may not be a complete list of foods and beverages you should avoid. Contact a dietitian for more information. Summary Kidney stones are deposits of minerals and salts that form inside your kidneys. You can lower your risk of kidney stones by making changes to your diet. The most important thing you can do is drink enough fluid. Drink enough fluid to keep your urine pale yellow. Talk to your dietitian about how much calcium you should have each day, and eat less salt and animal protein as told by your dietitian. This information is not intended to replace advice given to you by your health care provider. Make sure you discuss any questions you have with your health care provider. Document Revised: 08/28/2022 Document Reviewed: 08/28/2022 [facility] Patient Education 2022 [employer]. Follow Up Care 12/03/2022 08:49:17 With:Torsten DIAMOND, KT Jolley, URO Address: [address] [place] [address] [phone] When: Unknown Comments:6 mos w/ NEAL and OSCAR [facility] 09-04-2022 Hospital Discharg e instructions Patient Education 09/04/2022 09:31:21 Kidney Stones, Ogni-ku-Gtco Kidney Stones Kidney stones are rock-like masses [...] Follow these instructions at home: Medicines Take spkg-why-gevmauq and prescription medicines only as told by [...] 11/03/2008 Document Revised: 10/04/2019 Document Reviewed: 10/04/2019 [facility] Patient Education 2020 [employer]. Follow Up Care 08/01/2022 14:22:05 With:Torsten DIAMOND, KT Jolley, URO Address: When: Unknown [facility] 07-02-2022 Hospital Discharg e instructions Patient Education [...] include: ?Spinach. ?Rhubarb. ?Beets. ?Potato chips and ukrainian fries. ?Nuts. If you regularly take a diuretic medicine, make sure to eat at least 1 2 fruits or vegetables high in potassium each day. These include: ?Avocado. ?Banana. ?Jessamine, prune, carrot, or tomato juice. ?Baked potato. [...] Casseroles. Pizza. Lasagna. Frozen meals. Potato chips. Armenian fries. Summary You can reduce your risk [...] 09/12/2011 Document Revised: 09/07/2019 Document Reviewed: 04/28/2017 [facility] Patient Education 2019 [employer]. Follow Up Care 06/13/2022 11:44:22 With:Torsten DIAMOND, KT Jolley, URO Address: When: Unknown [facility] 06-13-2022 Hospital Discharg e instructions Patient Education [...] include: ?Spinach. ?Rhubarb. ?Beets. ?Potato chips and ukrainian fries. ?Nuts. If you regularly take a diuretic medicine, make sure to eat at least 1 2 fruits or vegetables high in potassium each day. These include: ?Avocado. ?Banana. ?Jessamine, prune, carrot, or tomato juice. ?Baked potato. [...] Casseroles. Pizza. Lasagna. Frozen meals. Potato chips. Armenian fries. Summary You can reduce your risk [...] 09/12/2011 Document Revised: 09/07/2019 Document Reviewed: 04/28/2017 [facility] Patient Education 2020 [employer]. Follow Up Care 05/29/2022 15:18:35 With:Torsten DIAMOND, KT Jolley, URO Address: When: Unknown [facility] Wendy 03-24-2022 Hospital Discharg e instructions Patient Education [...] as possible. If the spirometer includes a girls tennis coach indicator, use this to guide you in [...] 09/28/2007 Document Revised: 06/10/2018 Document Reviewed: 03/31/2018 [facility] Patient Education 2020 [employer]. 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 It is therefore advised not to drive until after your first office visit following surgery FOLLOW-UP OFFICE VISIT: Miles Guevara, DO [facility] [address] [place], [place] [address] Reviewed: 4-08 Follow Up Care 02/13/2022 09:46:16 With:Miles Guevara Address: [address] [place] [phone] (1) When: Unknown Comments:Keep scheduled appointment [facility] 03-24-2022 Evaluation + Plan note Extrac mulu from: Title:Post-anesthesia - General Author:Ashvin Gipson DO Date:03/24/22 Plan Transfer/ Discharge: Condition stable. Extracted from: Title:Pre-anesthesia - Adult Author:Ashvin Bartlett Jr., DO Date:03/24/22 Plan [place] [employer]hesi[employer] (ASA) physical status classification: Class II. Anesthetic Preoperative Plan Anesthesia: General. , Regional Adductor canal block. Anesthetic plan, risks, benefits, and alternatives discussed with the patient and/or family. Patient verbalized understanding. Adverse reactions, complications, and alternatives discujssed. Consent signed and on chart.. [facility]ments Appointment Date:07/02/2022 09:30:00 AM Scheduled Provider:Romi Sarmiento MD Location:[facility] Appointment Type:URO Office Visit [facility] Evaluation + Plan note Future Appointments Appointment Date:10/20/2022 03:30:00 PM Scheduled Provider:Romi Sarmiento MD Location:[facility] Appointment Type:URO Video Visit Diagnostic Tests Pending * PTH Intact 09/04/22 * Uric Acid 09/04/22 [facility] Evaluation + Plan note Future Appointments Appointment Date:12/03/2022 08:30:00 AM Scheduled Provider:Romi Sarmiento MD Location:[facility] Appointment Type:URO Office Visit Diagnostic Tests Pending * PAP [id number] w/ HPV and Genotype rflx 10/24/22 [facility] Future Appointments Appointment Date:2023 09:00:00 AM Scheduled Provider:Romi Sarmiento MD Location:[facility] Appointment Type:URO Office Visit [facility] Hospital course Narrative No data available for this section [facility] No data available for this section [facility] No data available for this section [facility] Assessments No Assessments Information Available Summary Purpose Family History No Family History Records FoundNo Family History Records Found No data available for this section No Family History Records Found Advance Directives No Advanced Directives Records FoundNo Advanced Directives Records FoundNo Advanced Directives Records Found Additional Source Comments INFORMATION SOURCE (unrecogn ized section and content) DATE CREATED AUTHOR 02/21/[address] [facility] DATE CREATED AUTHOR AUTHOR'S ORGANIZ ATION 09/14/2022 [facility] DATE CREATED AUTHOR AUTHOR'S ORGANIZ ATION 07/14/2023 [facility] Patient Care team informatio n (unrecognized section and content) Personnel Name: LUDY LAINEZ MD Address: Address: [address] [place] [address] Personnel Name: LUDY LAINEZ MD Address: Address: [address] [place] [address] Personnel Name: LUDY LAINEZ MD Address: Address: [address] [place] [address] Personnel Name: LUDY LAINEZ MD Address: Address: [address] [place] [address] Personnel Name: Radha Farley Address: Address: [address] [place] [address]- Personnel Name: Radha Farley Address: Address: [address] [place] [address]- FOR RECORDS PERTAINING TO PATIENTS WHO ARE [...] CLINICAL RECORDS. [facility] [employer] [facility]. provides no warranty or guarantee of the accuracy or completeness of information in this document.
[2023-09-02] MEDS: HYDROMORPHONE HCL 0.5 MG/0.5 ML SYRINGE IV (14:10)
[2023-09-02] MEDS: ONDANSETRON PF 4 MG/2 ML VIAL IV (14:10)
[2023-09-02] MEDS: FAMOTIDINE/PF 20 MG/2 ML VIAL IV (14:10)
[2023-09-02] MEDS: 0.9 % SODIUM CHLORIDE 1,000 ML 999 ML IV (14:10)
[2023-09-02 14:21] LABS: Basophils Percent Auto 0.5 % (0.2-2.0); Eosinophils Absolute Auto 0.1 10^3/uL (0.0-0.7); Eosinophils Percent Auto 0.6 % (0.9-7.0); Hematocrit 40.8 % (36.0-48.0); Hemoglobin 13.8 g/dL (12.0-16.0); Immature Granulocytes Abs Auto 0.01 10^3/uL (0.00-0.03); Immature Granulocytes Pct Auto 0.1 % (0.0-0.5); Lymphocytes Absolute Auto 1.9 10^3/uL (1.2-3.8); Mean Corpuscular HGB Conc 33.8 g/dL (29.9-35.2); Mean Corpuscular Hemoglobin 31.2 pg (26.7-34.0); Mean Corpuscular Volume 92.1 fL (81.0-99.0); Mean Platelet Volume 11.7 fL (9.5-13.5); Monocytes Absolute Auto 0.6 10^3/uL (0.3-0.8); Monocytes Percent Auto 7.2 % (1.7-12.0); Neutrophils Absolute Auto 5.5 10^3/uL (1.4-6.5); Neutrophils Percent Auto 68.6 % (43.0-75.0); Platelet Count 262 10^3/uL (150-450); Red Blood Count 4.43 10^6/uL (4.20-5.40); Red Cell Distribution Width 11.9 % (11.0-15.0); White Blood Count 8.1 10^3/uL (4.0-11.0)
[2023-09-02 14:37] LABS: HCG Qualitative NEGATIVE (NEGATIVE)
[2023-09-02 14:39] LABS: Alanine Aminotransferase 108 U/L (14-59); Albumin Globulin Ratio 0.9; Albumin Level 3.8 g/dL (3.4-5.0); Alkaline Phosphatase 96 U/L (46-116); Anion Gap 14.4; Aspartate Amino Transferase 28 U/L (15-37); BUN Creatinine Ratio 16.7; Bilirubin Total 0.4 mg/dL (0.2-1.0); Calcium 9.1 mg/dL (8.5-10.1); Carbon Dioxide 28.5 mmol/L (21.0-32.0); Chloride 98 mmol/L (98-107); Estimated GFR (African America >60 (>=60); Estimated GFR (Non-African Ame >60 (>=60); Glucose 98 mg/dL (74-106); Potassium 3.9 mmol/L (3.5-5.1); Sodium 137 mmol/L (136-145); Total Protein 7.8 g/dL (6.4-8.2)
--- NOTE | 2023-09-02 14:49 | CT_ITS ---
[address] [address] Patient Name: JASMIN CALVILLO MRN: [id number] date: 1975 Sex: F Assigned Patient Location: ER Current Patient Location: Accession/Order Number: [id number] Exam Date: 09/02/2023 15:08 Report Date: 09/02/2023 15:44 At the request of: JOSE DAVID GARCIA Procedure: CT abdomen pelvis w con EXAMINATION: CT abdomen pelvis w con HISTORY: Abdominal pain COMPARISON: No relevant comparison available. TECHNIQUE: Axial, Coronal, and Sagittal images were obtained without and/or with IV contrast as indicated by examination type. Dose reduction techniques were achieved by using automated exposure control and/or adjustment of mA and/or kV according to patient size and/or use of iterative reconstruction technique. FINDINGS: LUNG BASES: No visible pulmonary or pleural disease. LIVER: No enlargement, atrophy, suspicious density, or significant focal lesion. BILIARY: No dilatation or calcification. PANCREAS: No lesion, fluid collection, or abnormal duct dilatation. SPLEEN: No enlargement or focal lesion. ADRENALS: No mass or enlargement. KIDNEYS: Nonobstructing 14 mm stone within left kidney. Several small nonobstructing stones bilaterally. Unremarkable ureters. BOWEL/MESENTERY: Mild circumferential wall thickening of the transverse descending, and sigmoid colon. Moderate wall thickening of rectum. Prior gastric bypass surgery. No bowel obstruction, free fluid, free air. AORTA/VASCULAR: No aneurysm or dissection. RETROPERITONEUM: No mass or adenopathy. LYMPH NODES: No adenopathy. URINARY BLADDER: No visible focal wall thickening, lesion, or calculus. PELVIC ORGANS: Both fallopian tube clips are present within the left adnexa. Unremarkable uterus. Ovaries are not well seen. ABDOMINAL WALL: No mass or hernia. BONES: No bony lesion or fracture. OTHER: Negative. CT/CT abdomen pelvis w con IMPRESSION: 1. Prior gastric bypass surgery without obstruction. 2. Mild-moderate wall thickening throughout majority of the length of the colon; colitis versus lack of distention. 3. Bilateral nonobstructing nephrolithiasis; large 14 mm stone within left kidney. 4. Both fallopian tube clips are within left adnexa; this could be secondary to dislodgment of the right fallopian tube clip or a free floating ovary. Electronically authenticated by: ETTA DICKSON Date: 09/02/2023 15:44
[2023-09-02 15:15] LABS: Bilirubin Urine NEGATIVE (NEGATIVE); Blood Urine MODERATE (NEGATIVE); Clarity Urine CLEAR (CLEAR); Color Urine YELLOW (YELLOW); Glucose Urine UA NEGATIVE (NEGATIVE); Ketones Urine NEGATIVE (NEGATIVE); Leukocyte Esterase Urine NEGATIVE (NEGATIVE); Nitrite Urine NEGATIVE (NEGATIVE); Protein Urine NEGATIVE (NEG/TRACE); Specific Gravity Urine 1.015 (1.005-1.025); Urobilinogen Urine 0.2 EU/dL (0.2-1.0)
[2023-09-02 15:16] LABS: Urine Microscopic Indicated YES
[2023-09-02 15:26] LABS: Bacteria Urine TRACE #/HPF (NONE SEEN); Cast Seen? NONE SEEN #/LPF (NONE SEEN); Crystals Seen? None Seen #/HPF (None Seen); Mucus Urine NONE SEEN (NONE SEEN); Squamous Epithelial Cell Urine FEW #/LPF (NONE/RARE); WBC Urine 0-2 #/HPF (NONE SEEN)
== END 2023-09-02 16:23 | disposition home or self-care (01) ==
PROVIDERS: Physician Assistant; Emergency Provider Emergency Medicine; PCP Nurse Practitioner
DX: K52.9 Noninfective gastroenteritis and colitis, unspecified (principal); R10.9 Unspecified abdominal pain; Z87.442 Personal history of urinary calculi
CPT/HCPCS: 36415; 74177; 80053; 81001; 81003; 83605; 83690; 84703; 85025; 96374; 96375; 99285; J1170; Q9967

== ENCOUNTER 2023-09-12 13:48 | Outpatient (OUT) | payer OTHER, SELFPAY ==
--- NOTE | 2023-09-12 | US_ITS ---
The [address] [address] Patient Name: JASMIN CALVILLO MRN: [id number] date: 1975 Sex: F Assigned Patient Location: Current Patient Location: Accession/Order Number: [id number] Exam Date: 09/12/2023 14:00 Report Date: 09/14/2023 07:20 At the request of: FRANTZ PANDA Procedure: US pelvis w/ transvaginal EXAMINATION: US pelvis w/ transvaginal HISTORY: PELVIC PAIN, ABNORMAL CT RESULTS COMPARISON: 09/02/2023 CT exam FINDINGS: Transabdominal and transvaginal images The uterus is normal in size, contour and echotexture. 6.4 x 2.8 x 4.7 cm, anteverted. No focal myometrial mass. The endometrium measures 5 mm, normal. The right ovary measures 1.7 x 1.5 x 1.4 cm. Normal color and Doppler flow. Area of anechoic echogenicity measuring 1 cm, follicle versus cyst. The left ovary measures 3.0 x 2.0 x 3.1 cm. Normal color Doppler flow. Multiple areas of hypoechogenicity in the left ovary largest measuring 1.1 cm with soft tissue internal echotexture but no color flow. Simple/complex/functional cysts are favored. 2 ill-defined echogenic foci adjacent to the left ovary likely represent the surgical clips seen by CT exam US/US pelvis w/ transvaginal IMPRESSION: 2 surgical clips in the left pelvis likely representing migration of the right tubal ligation clip Electronically authenticated by: THOMAS SAAVEDRA Date: 09/14/2023 07:20
--- OUTSIDE RECORDS SUMMARY | 2023-09-12 13:53 | XMS_ITS | CCD ---
Author Organization [facility] Care Team Providers Care General Farmer Name Role Phone LUDY LAINEZ Primary Care [...] Primary Care Unavailable BRITTANY, MARY Attending Unavailable MARY SOTO Admitting Unavailable PAY ., DR PUENTE Consulting Unavailable PAY ., DR PUENTE Attending Unavailable PAY ., DR PUENTE Admitting Unavailable LAINEZ ., DR LUDY French Primary Care Unavailable MAXIMILIANO TAYLOR Consulting Unavailable MEGHA RESENDIZ Consulting Unavailable IVETT THOMPSON Consulting Unavailable Radha Leo Primary Care Physician Radha Leo Admitting Unavailable Radha Leo Attending Unavailable Romi Sarmiento Attending Unavailable Radha Leo Attending Unavailable Radha Leo Attending Unavailable Romi Sarmiento Attending Unavailable Rmoi Sarmiento Attending Unavailable Romi Sarmiento Attending Unavailable Unavailable Unavailable Unavailable Allergies Allergy Classification Reported Allergen(s) Allergy Type Date of Onset Reaction(s) Facility (1 source) No Known Medication Allergies; Translations: [No Known Medication Allergies] Propensity to adverse reactions (disorder) [facility] Repository Medications Current Medications Medication Drug Class(es) Dates Sig (Normalized) Sig (Original) acetaminophen 325 mg / oxyCODONE hydrochloride 5 mg oral tablet (1 source) Opioid Agonist Start: 03-22-2022 Percocet 325 mg-5 mg Tab See Instructions, 50 tab(s), Refill(s) 0, 1- 2 tab(s) Oral q4hr PRN post operative knee replacement pain. Duration 7 days, [id number], 165, cm, 02/26/22 12:16:00 EDT, Height/Length Dosing, [...] day(s), # 30 tab(s), Refills(s) 0, Pharmacy: [facility] #[id number], 165, cm, 02/26/22 12:16:00 EDT, Height/Length Dosing, [...] day(s), # 20 cap(s), Refills(s) 0, Pharmacy: [facility] #[id number], 165, cm, 02/26/22 12:16:00 EDT, Height/Length Dosing, 85.1, kg, 02/26/22 12:16:00 EDT, Weight Do... Start Date: 03/22/22 Stop Date: 03/27/22 Status: Ordered docusate sodium 100 mg oral capsule (1 source) Start: 03-22-2022 take 1 capsule by mouth twice daily Colace 100 mg Cap 100 mg = 1 cap(s), Oral, BID, # 20 cap(s), Refills(s) 0, Pharmacy: [facility] #[id number], 165, cm, 02/26/22 12:16:00 EDT, Height/Length Dosing, [...] nausea/vomiting, # 20 tab(s), Refills(s) 0, Pharmacy: [facility] #[id number], 165, cm, 02/26/22 12:16:00 EDT, Height/Length Dosing, 85.1, kg, 02/26/22 12:16:00 EDT, Weight Dosing Start Date: 03/22/22 Status: Ordered tamsulosin hydrochloride 0.4 mg oral capsule (2 sources) alpha-Adrenergic Chaya Start: 06-13-2022 take 1 capsule by mouth once daily Flomax 0.4 mg Cap 0.4 mg = 1 cap(s), Oral, Daily, # 30 cap(s), Refills(s) 1, Pharmacy: [facility] #[id number], 165, cm, 06/13/22 9:38:00 EST, Height/Length Dosing, [...] 01-13-2022 Chronic Other aftercare (1 source) Other long term care social worker (current) drug therapy; Translations: [OTH LONG-TERM CURRENT DRUG THERAPY] Onset: 08-06-2022 Episodic Other [...] Test Name Value Interpretation Reference Range Facility ED Note-Physicianon 09-03-19 ED Note-Physician [id number] F [facility] Lab Reportson 07-13-2023 Lab Reports [id number]#1.00TIF F [facility] Ambulatory Visit Summaryon 0 06-10-2023 Ambulatory Visit Summary JASMIN CALVILLO :1975 Visit Date:06/10/2023 Ambulatory Visit Instructions Your Diagnosis Ureteral stone Kidney stones Asymptomatic microscopic hematuria Tests Performed Urnls Dip Stick Auto w/o Microscopy POC 95070 US Renal -- Results Pending -- XR [...] Follow-Up Appointments Thursday 9:00 AM EDT With: Romi Sarmiento MD Where: [facility] Formson 06-10-2023 Forms [id number] [facility] Patient Educationon 06-10-19 24 Patient Education Nephrology [...] ? 8 oz (237 mL) of milk, qnwraqe-ayjzlkmfjylw-tol ry milk, and calcium-fortifiedfruit juice. Calcium-fortified means [...] Spinach (cooked), rhubarb, beets, sweet potatoes, and Ecuadorean chard. ? Peanuts. ? Potato chips, swiss fries, and baked potatoes with skin on. ? Nuts and nut products. ? Chocolate. ? If you regularly take a diuretic medicine, make sure to eat at least 1 or 2 servings of fruits or vegetables that are high in potassium each day. These include: ? Avocado. ? Banana. ? [place], prune, carrot, or tomato juice. ? Baked [...] fish oil, or vitamin B6. ? Take nwqs-zkf-iuyxwav and prescription medicines only as told by your health care provider. These include supplements. What foods sh (more content not included)... [facility] Reminderson 06-10-2023 Reminders - From: Odalys Hermosillo To: NURA Sarmiento; Sent: 06/10/2023 09:51:08 EST Show up: 11/09/2023 10:51:00 EDT Subject: KUB and OSCAR Reminder Message Please Remember to:_have pt get KUB and OSCAR done prior to appt. Prefers [facility]. [facility] Screenson 06-10-2023 Screens [id number] [facility] Urology Office/Clinic Noteon 06-10-2023 Urology Office/Clinic Note [...] hx - mother with stones. Presented to [facility] ER on 05/27/22- CT AP with IV/PO contrast: 5 mm right UPJ stone, 1 mm right UVJ stone, mild hydronephrosis and delayed nephrogram. 3 mm left UVJ stone without left hydronephrosis or ureter. Additional 2 to 3 mm nonobstructing renal calculi. RUST 06/30/22 - personal review: mild R hydro improved, bilateral nonobstructing stones, largest measuring [address]. KUB neg CT AP w/o contrast 07/10/22 marked right hydroureteronephrosis and 6 x 5 x 4 mm distal ureteral stone. RLP 2 mm stone, LLP 3.5 mm stone S/p Cysto, Right ureteroscopy w/ laser litho, stone extraction, string stent placed. Stent removed at home without complications. RUST 08/30/22 - bilateral stones - tiny RLP stone, 3.5 mm left stone KUB 05/18/23 [facility] - 5mm stone in RLP. 1cm stone in LLP. Personal review: stones are overestimated in size, likely multiple small stones. RUST 05/18/23 [facility] - 1.4cm stone in L renal pelvis [...] Urnls Dip Stick Auto w/o Microscopy POC 32096 US Renal XR Abdomen 1 View 2. [...] the patient (more content not included)... Normal [facility] Comment on above: Result Comment: Elec tronically Signed By: Torsten DIAMOND, Romi Sinclair\.br\Date and Time Signed: 06/10/23 14:46 EST\.br\Electronically Co-Signed By: Odalys Hermosillo\tammy\Date and Time Co-Signed: 06/10/23 09:52 EST Reminderson 06-04-2023 Reminders - From: Tanesha Rowley To: NURA - Angy Sarmiento; Sent: 12/03/2022 13:42:54 EDT Show up: 05/01/2023 13:42:00 EST Subject: OSCAR/KUB Reminder/Recall To be done @ [facility] prior to her 06/10/[address] Sarmiento Called pt Left VM to return our call about imaging. Pt called and she will be calling [facility] to schedule OSCAR and have KUB done on same day Called pt and left VM to see when she is scheduled for OSCAR/KUB Pt called and she is having OSCAR & KUB done @ [facility] on 05/18/2023 OSCAR in pt chart for upcoming appointment. KUB in pt chart [facility] RAD - MISCon 05-28-2023 RAD - MISC [id number] [id number]#1.00TIF F [facility] RAD - Ultrasound Reporton RAD - Ultrasound Report [id number]#1.00TIF F Normal [facility] Outside Mammographyon 2022 Outside Mammography [id number]: 127 Normal [facility] Outside Mammography [id number]: 127 Normal [facility] Screenson 12-04-2022 Screens [id number]#1.00CD :127 [facility] Ambulatory Visit Summaryon 0 12-03-2022 Ambulatory Visit Summary JASMIN CALVILLO :1975 Visit Date:12/03/2022 Ambulatory Visit Instructions Your Diagnosis Ureteral stone Kidney stones Asymptomatic microscopic hematuria Tests Performed Urnls Dip Stick Auto w/o Microscopy POC 74357 US Renal -- Results Pending -- XR [...] Romi Sarmiento MD Where: [facility] Patient Educationon 12-04-19 Patient Education Nephrology Dietary [...] ? 8 oz (237 mL) of milk, trweake-lnwfffjnqngs-toz ry milk, and calcium-fortifiedfruit juice. Calcium-fortified means [...] Spinach (cooked), rhubarb, beets, sweet potatoes, and Ecuadorean chard. ? Peanuts. ? Potato chips, swiss fries, and baked potatoes with skin on. ? Nuts and nut products. ? Chocolate. ? If you regularly take a diuretic medicine, make sure to eat at least 1 or 2 servings of fruits or vegetables that are high in potassium each day. These include: ? Avocado. ? Banana. ? [place], prune, carrot, or tomato juice. ? Baked [...] fish oil, or vitamin B6. ? Take zksy-lbp-gxvndfl and prescription medicines only as told by your health care provider. These include supplements. What foods should I limit? Limit your in (more content not included)... Normal [facility] Urology Office/Clinic Noteon 12-03-2022 Urology Office/Clinic Note [...] stone (N20.1: Calculus of ureter) Presented to [facility] ER on 05/27/22 for low abdominal pain and diarrhea. CT AP with IV/PO contrast 05/27/22 - 5 mm right UPJ stone, 1 mm right UVJ stone, mild hydronephrosis and delayed nephrogram. 3 mm left UVJ stone without left hydronephrosis or ureter. Additional 2 to 3 mm nonobstructing renal calculi present. OSCAR 06/06/22 at [facility] - Right kidney: Dilated renal pelvis and [...] medical e (more content not included)... Normal [facility] Comment on above: Result Comment: Elec tronically Signed By: Romi Sarmiento MD\.br\Date and Time Signed: 12/03/22 08:55 EDT\.br\Electronically Co-Signed By: Malathi Rivera\.br\Date and Time Co-Signed: 12/03/22 08:48 EDT Lab Reportson 11-11-2022 Lab Reports [id number]: 127 Normal [facility] PAP 11-05-2022 Cytology report Cyto stain Doc (Cvx/Vag) Note Invalid Interpretation Code [facility] Comment on above: Result Comment: TEST S RESULT FLAG UNITS REF RANGE LAB Clinician Provided Cytology Information Source.............Endocervix No. of containers..01 ThinPrep Vial DIAGNOSIS: 01 NEGATIVE FOR INTRAEPITHELIAL LESION OR MALIGNANCY. FUNGAL ORGANISMS MORPHOLOGICALLY CONSISTENT WITH KILEY SPECIES ARE PRESENT. THIS SPECIMEN WAS RESCREENED PART OF OUR [employer] BI DEVELOPER PROGRAM. Specimen adequacy: 01 Satisfactory for evaluation. Endocervical and/or squamous metaplastic cells (endocervical component) are present. Performed by: 02 Saman Lopez Office Machinery Or Equipment Installer (ASCP) QC reviewed by: 01 Nel Swift, Supervisory Office Machinery Or Equipment Installer ([facility]) . 01 Note: Note 01 The Pap [...] Low,>-Panic High,A-Abnormal,AA-Critical Abnormal Performed at: 01 [facility] [address] [phone] Catherine Pearson MD, 02 KWCYT [facility] [place] [facility] [address] [place] [phone] Alex Pascual MD, Performed By: #### 1 [id number] ####[facility] [address] [place] [address] HPV 16+18+31+33+35+39+4 5+51+52+56+58+59+66 +68 DNA Probe+sig amp Ql (Cvx) Negative Invalid Interpretation Code Negative [facility] Comment on above: Result Comment: This nucleic acid amplification test detects fourteen high-risk HPV types (16,18,31,33,35,39,45,51,52,56,58,59,66,68) without differentiation. Performed at: [facility] [address] [facility] [place], [place] [id number] MD Michel Alexander Performed at: =G [facility] [place] [address] [facility] [place] [id number] MD Michel Alexander Performed By: #### 1 [id number] ####[facility] [address] [place] [address] Ambulatory Visit Summaryon 0 10-24-2022 Ambulatory Visit [...] DIAMOND, Romi Sinclair Where: [facility] Family Medicine Office/Clini c Noteon 10-24-2022 Family [...] virus vaccine, inactivated 04/28/2022 Recorded SARS-CoV-2 (COVID-19) [id number] 04/28/2022 Recorded SARS-CoV-2 (COVID-19) mRNA BNT-162b2 vax [...] influenza virus vaccine, inactivated 04/24/2013 Recorded Normal [facility] Comment on above: Result Comment: Elec tronically [...] masses. Pap obtained Neurologic: Grossly normal Skin: [place], moist, no tenting Lymph Nodes: No cervical [...] Mammogram order provided to be done at [facility]. discussed pelvic u/s if gas/bloating pain continues. all questions answered. RTC 1 year Ordered: MA Mamm Screen w/CAD if perf and 3D Peng PAP w/ HPV and Genotype rflx 2. Breast cancer screening (Z12.39: Encounter for other screening for malignant neoplasm of breast) mammogram order provided to be done at [facility] Ordered: MA Mamm Screen w/CAD if perf [...] Iron or (more content not included)... Normal [facility] Comment on above: Result Comment: Elec [...] w/CAD if perf and 3D Peng PAP 733854 w/ HPV and Genotype rflx 3. Cervical cancer screening (Z12.4: Encounter for screening for malignant neoplasm of cervix) Ordered: PAP 285477 w/ HPV and Genotype rflx 4. BMI 24.0-24.9, adult (Z68.24: Body mass index [BMI] 24.0-24.9, adult) Ordered: PAP 916759 w/ HPV and Genotype rflx 5. Non-smoker (Z78.9: Other specified health status) Ordered: PAP [id number] w/ HPV and Genotype rflx Follow-up No [...] virus vaccine, inactivated 04/28/2022 Recorded SARS-CoV-2 (COVID-19) [id number].ORD![id number] 04/28/2022 Recorded SARS-CoV-2 (COVID-19) mRNA BNT-162b2 vax [...] influenza virus vaccine, inactivated 04/24/2013 Recorded Normal [facility] Comment on above: Result Comment: Elec tronically Signed By: Radha Farley\.jens\Date and Time Signed: 10/24/22 10:42 EDT PAP [id number] 10-24-2022 Gynecological Body Site ENDOCERVIX Normal [facility] Comment on above: Performed By: #### 1 [id number] ####[facility] [address] [place] [id number] Patient Educationon 10-25-19 23 Patient Education Nutrition [...] numbers. This can be done either in [place] ([place] or metric measurements. Note that charts and online BMI calculators are available to help you find your BMI quickly and easily without having to do these calculations yourself. To calculate your BMI in [place] ([place] measurements: 1. Measure your weight in [...] for Disease Control and Prevention: www.cdc.gov ? [place] Heart Association: www.heart.org ? National Heart, Lung, and Blood [place]: www.nhlbi.nih.gov Summary ? Body mass index (BMI) is a number that is calculated from a person's weight and height. ? BMI may help estimate how much of a person's weight is composed of fat. BMI can help identify those who may be at higher risk for certain medical problems. ? BMI can be measured using [place]ian measurements or metric measurements. ? BMI charts are used to identify whether you are underweight, normal weight, overweight, or obese. This information is not intended to replace advice given to you by your health care provider. Make sure you discuss any questions you have with your health care provider. Document Revised: 02/08/2020 Document Reviewed: 12/16/2019 [employer] Patient Education ? 2022 [employer]. [facility] Formson 10-16-2022 Forms [id number]: 127 Normal [facility] PTH INTACTon 09-05-2022 PTH, Intact 16 pg/mL Normal 15-[address] [facility] Comment on above: Performed By: #### E RUR UMICRO #### [facility] [address] [place], [place] [address] Dr. Sandra Castano URIC ACID SERUMon 09-04-2022 Urate [Mass/Vol] 4.4 mg/dL Normal 2.6-6.0 [facility] Comment on above: Performed By: #### L IPA, CMP #### [facility] [address] [place], [place] [address] Dr. Sandra Castano US KIDNEYSon 08-31-2022 US KIDNEYS US KIDNEYS EXAM DATE: 08/30/2022 7:55 AM MDT COMPARISON: Ultrasound kidney is 06/30/2022, 06/06/2022; CT abdomen and pelvis 07/10/2022. INDICATION: Kidney stones. History of stone and stent removal. TECHNIQUE: Real-time ultrasound scanning of the kidneys and bladder was performed by the sponge press operator. Psychology Fellow static images are submitted for review. FINDINGS: [...] MAISHA ESTRADA Date: 2022-08-31 13:15 Normal [facility] CALCULI, URINARYon 3 2,8 Dihydroxyadenine Normal [facility] Comment on above: Performed By: #### C ALCULI #### [facility] [address] [place] [address] [address] Sandra Castano Ammonium Acid Urate Normal [facility] Comment on above: Performed By: #### C ALCULI #### [facility] [address] [place] [address] [address] Sandra Castano Bilirubin Ql (U) [facility] Comment on above: Performed By: #### C ALCULI #### [facility] [address] [place] [address] [address] Sandra Castano Ca Oxalate Dihydrate 80 % [facility] Comment on above: Performed By: #### C ALCULI #### [facility] [address] [place] [address] [address] Sandra Castano CaHPO4 (Brushite) Normal [facility] Comment on above: Performed By: #### C ALCULI #### [facility] [address] [place] [address] [address] Sandra Castano Calcium Bilirubinate Normal [facility] Comment on above: Performed By: #### C ALCULI #### [facility] [address] [place] [address] [address] Sandra Castano Calcium Carbonate Normal [facility] Comment on above: Performed By: #### C ALCULI #### [facility] [address] [place] [address] [address] Sandra Castano Calcium Oxalate Monohydrate 20 % [facility] Comment on above: Performed By: #### C ALCULI #### [facility] [address] [place] [address] [address] Sandra Castano Calcium Palmitate Normal [facility] Comment on above: Performed By: #### C ALCULI #### [facility] [address] [place] [address] [address] Sandra Castano Calcium Phosphate Normal [facility] Comment on above: Performed By: #### C ALCULI #### [facility] [address] [place] [address] [address] Sandra Castano Calcium Stearate Normal [facility] Comment on above: Performed By: #### C ALCULI #### [facility] [address] [place] [address] [address] Sandra Castano Carbonate Apatite Normal [facility] Comment on above: Performed By: #### C ALCULI #### [facility] [address] [place] [address] [address] Sandra Castano Cellular Material Normal [facility] Comment on above: Performed By: #### C ALCULI #### [facility] [address] [place] [address] Dr. Sandra Castano Cholesterol [facility] Comment on above: Performed By: #### C ALCULI #### [facility] [address] [place] [address] Dr. Sandra Castano Color (U) Hahn Normal [facility] Comment on above: Performed By: #### C ALCULI #### [facility] [address] [place] [address] Dr. Sandra Castano Comment [facility] Comment on above: Performed By: #### C ALCULI #### [facility] [address] [place] [address] Dr. Sandra Castano Comment Comment [facility] Comment on above: Result Comment: Calc ulus received wet. Wet calculi must be dried before analysis, which delays reporting of results. Leaving calculi wet (such as water, saline, blood, urine) may lead to changes in composition. Performed By: #### C ALCULI #### [facility] [address] [place] [address] Dr. Sandra Castano Comment: Comment Normal [facility] Comment on above: Result Comment: Cindi lozano questions regarding Calculi Analysis contact [facility] at: [phone]. Performed By: #### C ALCULI #### [facility] [address] [place] [address] [address] Sandra Castano Composition Comment Normal [facility] Comment on above: Result Comment: Perc entage (Represents the % composition) Performed By: #### C ALCULI #### [facility] [address] [place] [address] Dr. Sandra Castano Cystine Normal [facility] Comment on above: Performed By: #### C ALCULI #### [facility] [address] [place] [address] [address] Sandra Castano Disclaimer: Comment Normal [facility] Comment on above: Result Comment: This test was developed and its performance characteristics determined by [facility]. It has not been cleared or approved by the Food and Drug Administration. Performed By: #### C ALCULI #### [facility] [address] [place] [address] Dr. Sandra Castano Dried Blood Normal [facility] Comment on above: Performed By: #### C ALCULI #### [facility] [address] [place] [address] Dr. Sandra Castano Drug or Metabolite Normal [facility] Comment on above: Performed By: #### C ALCULI #### [facility] [address] [place] [address] Dr. Sandra Castano Hydroxyapatite Normal [facility] Comment on above: Performed By: #### C ALCULI #### [facility] [address] [place] [address] Dr. Sandra Castano Mg NH4 PO4 (Struvite) Normal [facility] Comment on above: Performed By: #### C ALCULI #### [facility] [address] [place] [address] Dr. Sandra Castano MgHPO4 ([place]ite) Normal [facility] Comment on above: Performed By: #### C ALCULI #### [facility] [address] [place] [address] Dr. Sandra Castano Other component(s) Normal [facility] Comment on above: Performed By: #### C ALCULI #### [facility] [address] [place] [address] Dr. Sandra Castano PDF . Normal [facility] Comment on above: Performed By: #### C ALCULI #### [facility] [address] [place] [address] [address] Sandra Castano Photo Comment Normal [facility] Comment on above: Result Comment: Phot ograph will follow under a separate cover Performed By: #### C ALCULI #### [facility] [address] [place] [address] [address] Sandra Castano Please note: Comment Normal [facility] Comment on above: Result Comment: Calc chica report will follow via computer, mail or contracts representative delivery. Performed By: #### C ALCULI #### [facility] [address] [place] [address] [address] Sandra Castano Size 2x1 [facility] Comment on above: Result Comment: Mult iple pieces received. Dimensions of the largest piece reported. Performed By: #### C ALCULI #### [facility] [address] [place] [address] [address] Sandra Castano Sodium Acid Urate Normal [facility] Comment on above: Performed By: #### C ALCULI #### [facility] [address] [place] [address] [address] Sandra Castano Source Comment [facility] Comment on above: Result Comment: Righ t Ureter Performed By: #### C ALCULI #### [facility] [address] [place] [address] [address] Sandra Castano Triamterene [facility] Comment on above: Performed By: #### C ALCULI #### [facility] [address] [place] [address] [address] Sandra Castano Uric Acid [facility] Comment on above: Performed By: #### C ALCULI #### [facility] [address] [place] [address] [address] Sandra Castano Uric Acid Dihydrate Normal [facility] Comment on above: Performed By: #### C ALCULI #### [facility] [address] [place] [address] [address] Sandra Castano Weight 9 mg Normal [facility] Comment on above: Performed By: #### C ALCULI #### [facility] [address] [place] [address] [address] Sandra Castano Xanthine Normal [facility] Comment on above: Performed By: #### C ALCULI #### [facility] [address] [address] [address] Sandra Castano PREG HCG QUALon 07-30-2022 , QUAL Negative Normal NEGATIVE [facility] Comment on above: Performed By: #### C ALCULI #### [facility] [address] [address] [address] Sandra Castano PROF CHEM 8 (BAS METB)on Anion gap [Moles/Vol] 12.7 mmol/L Normal [facility] Comment on above: Performed By: #### C ALCULI #### [facility] [address] [place] [address] Dr. Sandra Castano Calcium [Mass/Vol] 9.6 mg/dL Normal 8.5-10.1 [facility] Comment on above: Performed By: #### C ALCULI #### [facility] [address] [address] [address] Sandra Castano Chloride [Moles/Vol] 101 mmol/L Normal 98-[address] [facility] Comment on above: Performed By: #### C ALCULI #### [facility] [address] [address] [address] Sandra Castano CO2 [Moles/Vol] 30.4 mmol/L Normal 21.0-32.0 [facility] Comment on above: Performed By: #### C ALCULI #### [facility] [address] [address] [address] Sandra Castano Creatinine [Mass/Vol] 0.65 mg/dL Normal 0.55-1.[address] [facility] Comment on above: Performed By: #### C ALCULI #### [facility] [address] [place] [address] Dr. Sandra Castano EGFR-AF HUNGARIAN >60 Normal >=60 [facility] Comment on above: Performed By: #### C ALCULI #### [facility] [address] [address] [address] Sandra Castano EGFR-NON AF HUNGARIAN >60 Normal >=[address] [facility] Comment on above: Performed By: #### C ALCULI #### [facility] [address] [address] [address] Sandra Castano Glucose [Mass/Vol] 121 mg/dL Critically high 74-106 [facility] Comment on above: Performed By: #### C ALCULI #### [facility] [address] [address] [address] Sandra Castano Potassium [Moles/Vol] 4.1 mmol/L Normal 3.5-5.[address] [facility] Comment on above: Performed By: #### C ALCULI #### [facility] [address] [address] [address] Sandra Castano Sodium [Moles/Vol] 140 mmol/L Normal 136-145 [facility] Comment on above: Performed By: #### C ALCULI #### [facility] [address] [address] [address] Sandra Castano Urea nitrogen [Mass/Vol] 17.0 mg/dL Normal 7.0-18.[address] [facility] Comment on above: Performed By: #### C ALCULI #### [facility] [address] [address] [address] Sandra Castano Urea nitrogen/Creatinine [Mass ratio] 26.2 mg/mg Normal [facility] Comment on above: Performed By: #### C ALCULI #### [facility] [address] [address] [address] Sandra Castano PROTIMEon 07-18-2022 INR Coag (PPP) [Relative time] 0.97 {INR} Normal [facility] Comment on above: Performed By: #### L IPA, CMP #### [facility] [address] [address] [address] Sandra Castano INR GUIDELINES SEE BELOW Normal [facility] Comment on above: Result Comment: DUNIA RED INR: 2.0 - 3.0 CONDITIONS NOT LISTED BELOW 2.5 - 3.5 FOR PROSTHETIC HEART VALVE REPLACEMENT 2.5 - 3.5 RECURRENT THROMBOSIS Performed By: #### L IPA, CMP #### [facility] [address] [address] [address] Sandra Castano PT Coag (PPP) [Time] 10.3 s Normal 9.0-11.[address] [facility] Comment on above: Performed By: #### L IPA, CMP #### [facility] [address] [place] [address] Dr. Sandra Castano PTTon 07-18-2022 aPTT Coag (Bld) [Time] 29.1 s Normal 22.3-36.[address] [facility] Comment on above: Performed By: #### L IPA, CMP #### [facility] [address] [place] [address] ABD/PELVIS WO CONon [...] by: ETTA CEDEÑO Date: 2022-07-10 13:[address] [facility] US KIDNEYSon 06-30-2022 US KIDNEYS EXAMINATION: US [facility] HISTORY: Kidney stone , hematuria COMPARISON: Ultrasound [...] by: ETTA CEDEÑO Date: 2022-06-30 16:[address] [facility] XR KUB 1 VIEWon 06-30-2022 XR KUB [...] by: ETTA CEDEÑO Date: 2022-06-30 17:[address] [facility] US KIDNEYSon 06-06-2022 US KIDNEYS EXAMINATION: US [...] by: ETTA CEDEÑO Date: 2022-06-06 12:[address] [facility] XR KUB 1 VIEWon 06-06-2022 XR KUB [...] by: ETTA CEDEÑO Date: 2022-06-06 12:[address] [facility] CT ABD/PELV W CONon 05-28-[address] [...] MEGHA RESENDIZ Date: 2022-05-27 23:14 Normal [facility] CBC AUTO DIFFon 05-27-2022 BASO # 0.0 103/ul Normal 0.0-0.1 [facility] Comment on above: Performed By: #### C ALCULI #### [facility] [address] [place] [address] Dr. Sandra Castano Basophils/100 WBC (Bld) 0.4 % Normal 0.2-2.[address] [facility] Comment on above: Performed By: #### C ALCULI #### [facility] [address] [address] [address] Sandra Castano EO # 0.0 103/ul Normal 0.0-0.7 [facility] Comment on above: Performed By: #### C ALCULI #### [facility] [address] [address] [address] Sandra Castano Eosinophils/100 WBC (Bld) 0.1 % Critically low 0.9-7.[address] [facility] Comment on above: Performed By: #### C ALCULI #### [facility] [address] [place] [address] Dr. Sandra Castano Erythrocyte distribution width (RBC) [Ratio] 13.0 % Normal 11.0-15.[address] [facility] Comment on above: Performed By: #### C ALCULI #### [facility] [address] [place] [address] Dr. Sandra Castano Hematocrit (Bld) [Volume fraction] 37.1 % Normal 36.0-48.[address] [facility] Comment on above: Performed By: #### C ALCULI #### [facility] [address] [place] [address] Dr. Sandra Castano Hemoglobin (Bld) [Mass/Vol] 12.1 g/dL Normal 12.0-16.[address] [facility] Comment on above: Performed By: #### C ALCULI #### [facility] [address] [place] [address] Dr. Sandra Castano IG # 0.05 10e3/ul Critically high 0.00-0.03 [facility] Comment on above: Performed By: #### C ALCULI #### [facility] [address] [place] [address] Dr. Sandra Castano IG % 0.6 % Critically high 0.0-0.5 [facility] Comment on above: Performed By: #### C ALCULI #### [facility] [address] [address] [address] Sandra Castano LYMPH # 1.0 103/ul Critically low 1.2-3.8 [facility] Comment on above: Performed By: #### C ALCULI #### [facility] [address] [place] [address] Dr. Sandra Castano Lymphocytes/100 WBC (Bld) 11.7 % Critically low 20.5-60.0 [facility] Comment on above: Performed By: #### C ALCULI #### [facility] [address] [place] [address] Dr. Sandra Castano MANUAL DIFF REQ NO Normal [facility] Comment on above: Performed By: #### C ALCULI #### [facility] [address] [place] [address] Dr. Sandra Castano MCH (RBC) [Entitic mass] 28.8 pg Normal 26.7-34.0 [facility] Comment on above: Performed By: #### C ALCULI #### [facility] [address] [place] [address] Dr. Sandra Castano MCHC (RBC) [Mass/Vol] 32.6 g/dL Normal 29.9-35.2 [facility] Comment on above: Performed By: #### C ALCULI #### [facility] [address] [place] [address] Dr. Sandra Castano MCV (RBC) [Entitic vol] 88.3 fL Normal 81.0-99.0 [facility] Comment on above: Performed By: #### C ALCULI #### [facility] [address] [place] [address] Dr. Sandra Castano MONO # 0.4 103/ul Normal 0.3-0.8 [facility] Comment on above: Performed By: #### C ALCULI #### [facility] [address] [place] [address] Dr. Sandra Castano Monocytes/100 WBC (Bld) 4.2 % Normal 1.7-12.0 [facility] Comment on above: Performed By: #### C ALCULI #### [facility] [address] [address] [address] Sandra Castano NEUT # 6.8 103/ul Critically high 1.4-6.5 [facility] Comment on above: Performed By: #### C ALCULI #### [facility] [address] [place] [address] Dr. Sandra Castano Neutrophils/100 WBC (Bld) 83.0 % Critically high 43.0-75.0 [facility] Comment on above: Performed By: #### C ALCULI #### [facility] [address] [place] [address] Dr. Sandra Castano Platelet mean volume (Bld) [Entitic vol] 11.1 fL Normal 9.5-13.5 [facility] Comment on above: Performed By: #### C ALCULI #### [facility] [address] [place] [address] Dr. Sandra Castano PLT 312 103/ul Normal 150-450 [facility] Comment on above: Performed By: #### C ALCULI #### [facility] [address] [place] [address] Dr. Sandra Castano RBC 4.20 106/ul Normal 4.20-5.40 [facility] Comment on above: Performed By: #### C ALCULI #### [facility] [address] [place] [address] Dr. Sandra Castano WBC 8.2 103/ul Normal 4.0-11.0 [facility] Comment on above: Performed By: #### C ALCULI #### [facility] [address] [place] [address] Dr. Sandra Castano CULTURE URINEon 05-27-2022 CULTURE URINE Culture Observations : LIGHT GROWTH OF MIXED GENITAL NITISH. NO POTENTIAL PATHOGENS SEEN. Normal [facility] Comment on above: Performed By: #### L IPA, CMP #### [facility] [address] [place] [address] Dr. Sandra Castano ER URINE PROFILEon Bilirubin Ql (U) Negative Normal NEGATIVE [facility] Comment on above: Performed By: #### E RUR UMICRO #### [facility] [address] [place] [address] Dr. Sandra Castano Clarity (U) CLEAR Normal CLEAR [facility] Comment on above: Performed By: #### FLORENCIO DUBOISRO #### [facility] [address] [place] [address] Dr. Sandra Castano Color (U) YELLOW Normal YELLOW [facility] Comment on above: Performed By: #### FLORENCIO DUBOISRO #### [facility] [address] [place] [address] Dr. Sandra GORDON A micrscopic examina tion will be performed if indicated. Normal [facility] Comment on above: Performed By: #### FLORENCIO DUBOISRO #### [facility] [address] [place] [address] Dr. Sandra Castano Glucose Ql (U) Negative Normal NEGATIVE [facility] Comment on above: Performed By: #### FLORENCIO DUBOISRO #### [facility] [address] [place] [address] Dr. Sandra Castano Hemoglobin Ql (U) Negative Normal NEGATIVE [facility] Comment on above: Performed By: #### FLORENCIO DUBOISRO #### [facility] [address] [place] [address] Dr. Sandra Castano Ketones Ql (U) 40 mg/dl Abnormal NEGATIVE [facility] Comment on above: Performed By: #### FLORENCIO DUBOISRO #### [facility] [address] [place] [address] Dr. Sandra Castano LEUKOCYTES Negative Normal NEGATIVE [facility] Comment on above: Performed By: #### ELAINA DUBOISICRO #### [facility] [address] [place] [address] Dr. Sandra Castano Nitrite Ql (U) Negative Normal NEGATIVE [facility] Comment on above: Performed By: #### Gillian ACEVEDO UMICRO #### [facility] [address] [place] [address] Dr. Sandra Castano pH (U) 5.0 [pH] Normal 5-[address] [facility] Comment on above: Performed By: #### E RUR, UMICRO #### [facility] [address] [place] [address] Dr. Sandra Castano Protein (U) [Mass/Vol] 30 mg/dL Abnormal NEGATIVE/ TRACE [facility] Comment on above: Performed By: #### E RUR, UMICRO #### [facility] [address] [place] [address] Dr. Sandra Castano SPEC GRAVITY >=1.030 Abnormal 1.005-<=1.[address] [place] [address] Comment on above: Performed By: #### E ADINR ICRO #### [facility] [address] [place] [address] Dr. Sandra Castano UR MICRO IND INDICATED Normal [facility] Comment on above: Performed By: #### E RUKellie UMICRO #### [facility] [address] [place] [address] Dr. Sandra Castano Urobilinogen Qn (U) 0.2 {Tee'U}/dL Normal 0.2 - 1. [address] [facility] Comment on above: Performed By: #### Gillian ACEVEDO ICRO #### [facility] [address] [place] [address] Dr. Sandra Castano LIPASEon 05-27-2022 Lipase [Catalytic activity/Vol] 88.0 U/L Normal 73.0-393.[address] [facility] Comment on above: Performed By: #### L IPA, CMP #### [facility] [address] [place] [address] Dr. Sandra Castano URon 05-27-2022 , QUAL Negative Normal NEGATIVE [facility] Comment on above: Performed By: #### P REGU #### [facility] [address] [place] [address] Dr. Sandra Castano PROF 14(COMP METB)on 022 Albumin [Mass/Vol] 4.0 g/dL Normal 3.4-5.0 [facility] Comment on above: Performed By: #### L IPA, CMP #### [facility] [address] [place] [address] Dr. Sandra Castano Albumin/Globulin [Mass ratio] 1.0 {ratio} Normal [facility] Comment on above: Performed By: #### L IPA, CMP #### [facility] [address] [place] [address] Dr. Sandra Castano ALP [Catalytic activity/Vol] 106 U/L Normal 46-[address] [facility] Comment on above: Performed By: #### L IPA, CMP #### [facility] [address] [place] [address] Dr. Sandra Castano ALT [Catalytic activity/Vol] 24 U/L Normal 14-[address] [facility] Comment on above: Performed By: #### L IPA, CMP #### [facility] [address] [place] [address] Dr. Sandra Castano Anion gap [Moles/Vol] 15.2 mmol/L Normal [facility] Comment on above: Performed By: #### L IPA, CMP #### [facility] [address] [place] [address] Dr. Sandra Castano AST [Catalytic activity/Vol] 21 U/L Normal 15-[address] [facility] Comment on above: Performed By: #### L IPA, CMP #### [facility] [address] [place] [address] Dr. Sandra Castano Bilirubin [Mass/Vol] 0.4 mg/dL Normal 0.2-1.[address] [facility] Comment on above: Performed By: #### L IPA, CMP #### [facility] [address] [place] [address] Dr. Sandra Castano Calcium [Mass/Vol] 9.6 mg/dL Normal 8.5-10.1 [facility] Comment on above: Performed By: #### L IPA, CMP #### [facility] [address] [place] [address] Dr. Sandra Castano Chloride [Moles/Vol] 99 mmol/L Normal 98-[address] [facility] Comment on above: Performed By: #### L IPA, CMP #### [facility] [address] [place] [address] Dr. Sandra Castano CO2 [Moles/Vol] 25.2 mmol/L Normal 21.0-32.0 [facility] Comment on above: Performed By: #### L IPA, CMP #### [facility] [address] [place] [address] Dr. Sandra Castano Creatinine [Mass/Vol] 0.90 mg/dL Normal 0.55-1.[address] [facility] Comment on above: Performed By: #### L IPA, CMP #### [facility] [address] [place] [address] Dr. Sandra Castano EGFR-AF HUNGARIAN >60 Normal >=60 [facility] Comment on above: Performed By: #### L IPA, CMP #### [facility] [address] [place] [address] Dr. Sandra Castano EGFR-NON AF HUNGARIAN >60 Normal >=[address] [facility] Comment on above: Performed By: #### L IPA, CMP #### [facility] [address] [place] [address] Dr. Sandra Castano Globulin (S) [Mass/Vol] 4.2 g/dL Normal [facility] Comment on above: Performed By: #### L IPA, CMP #### [facility] [address] [place] [address] Dr. Sandra Castano Glucose [Mass/Vol] 171 mg/dL Critically high 74-106 [facility] Comment on above: Performed By: #### L IPA, CMP #### [facility] [address] [place] [address] Dr. Sandra Castano Potassium [Moles/Vol] 3.4 mmol/L Critically low 3.5-5.[address] [facility] Comment on above: Performed By: #### L IPA, CMP #### [facility] [address] [place] [address] Dr. Sandra Castano Protein [Mass/Vol] 8.2 g/dL Normal 6.4-8.2 [facility] Comment on above: Performed By: #### L IPA, CMP #### [facility] [address] [place] [address] Dr. Sandra Castano Sodium [Moles/Vol] 136 mmol/L Normal 136-145 [facility] Comment on above: Performed By: #### L IPA, CMP #### [facility] [address] [place] [address] Dr. Sandra Castano Urea nitrogen [Mass/Vol] 14.0 mg/dL Normal 7.0-18.[address] [facility] Comment on above: Performed By: #### L IPA, CMP #### [facility] [address] [place] [address] Dr. Sandra Castano Urea nitrogen/Creatinine [Mass ratio] 15.6 mg/mg Normal [facility] Comment on above: Performed By: #### L IPA, CMP #### [facility] [address] [place] [address] Dr. Sandra Castano URINE MICROSCOPIC ONLYon BACTERIA MODERATE Abnormal NONE SEEN [facility] Comment on above: Performed By: #### E RUR, UMICRO #### [facility] [address] [place] [address] Dr. Sandra Castano Bacteria identified Cx Nom (U) INDICATED Normal [facility] Comment on above: Performed By: #### E RUR, UMICRO #### [facility] [address] [place] [address] Dr. Sandra Castano CAST NONE SEEN Normal NONE SEEN [facility] Comment on above: Performed By: #### E RUR, UMICRO #### [facility] [address] [place] [address] Dr. Sandra Castano Crystals LM Nom (Urine sed) NONE SEEN Normal NONE SEEN [facility] Comment on above: Performed By: #### E RUR, UMICRO #### [facility] [address] [place] [address] Dr. Sandra aCstano Epithelial cells LM Ql (Urine sed) RARE Normal NONE SEEN /RARE [facility] Comment on above: Performed By: #### E RUR, UMICRO #### [facility] [address] [place] [address] Dr. Sandra Castano MUCOUS TRACE Abnormal NONE SEEN [facility] Comment on above: Performed By: #### E ADINR, ELAINAICRO #### [facility] [address] [address] [address] Sandra Castano RBC 2-5 Abnormal 0-2 [facility] Comment on above: Performed By: #### E ADINR, UMICRO #### [facility] [address] [address] [address] Sandra Castano WBC 2-5 Abnormal NONE SEEN [facility] Comment on above: Performed By: #### E ADINR, UMICRO #### [facility] [address] [address] [address] Sandra Castano YEAST PRESENT Abnormal NONE SEEN [facility] Comment on above: Performed By: #### E CURTIS, FLORENCIORO #### [facility] [address] [place] [address] Dr. Sandra Castano XR ABD FLAT UP_PA [...] MAXIMILIANO TAYLOR Date: 2022-05-27 21:17 Normal [facility] VITAMIN B1 (THIAMINE)on 05-01 Vit. B1, Whole Blood 168.7 nmol/L Normal 66.5-200.[address] [facility] Comment on above: Performed By: #### C ALCULI #### [facility] [address] [place] [address] Dr. Sandra Castano CBC AUTO DIFFon 05-07-2022 BASO # 0.1 103/ul Normal 0.0-0.[address] [facility] Comment on above: Performed By: #### L IPA, CMP #### [facility] [address] [place] [address] Dr. Sandra Castano Basophils/100 WBC (Bld) 0.5 % Normal 0.2-2.[address] [facility] Comment on above: Performed By: #### L IPA, CMP #### [facility] [address] [place] [address] Dr. Sandra Castano EO # 0.1 103/ul Normal 0.0-0.[address] [facility] Comment on above: Performed By: #### L IPA, CMP #### [facility] [address] [place] [address] Dr. Sandra Castano Eosinophils/100 WBC (Bld) 1.3 % Normal 0.9-7.[address] [facility] Comment on above: Performed By: #### L IPA, CMP #### [facility] [address] [place] [address] Dr. Sandra Castano Erythrocyte distribution width (RBC) [Ratio] 12.8 % Normal 11.0-15.[address] [facility] Comment on above: Performed By: #### L IPA, CMP #### [facility] [address] [place] [address] Dr. Sandra Castano Hematocrit (Bld) [Volume fraction] 37.5 % Normal 36.0-48.[address] [facility] Comment on above: Performed By: #### L IPA, CMP #### [facility] [address] [place] [address] Dr. Sandra Castano Hemoglobin (Bld) [Mass/Vol] 12.1 g/dL Normal 12.0-16.0 [facility] Comment on above: Performed By: #### L IPA, CMP #### [facility] [address] [place] [address] Dr. Sandra Castano IG # 0.03 10e3/ul Normal 0.00-0.[address] [facility] Comment on above: Performed By: #### L IPA, CMP #### [facility] [address] [place] [address] Dr. Sandra Castano IG % 0.3 % Normal 0.0-0.[address] [facility] Comment on above: Performed By: #### L IPA, CMP #### [facility] [address] [place] [address] Dr. Sandra Castano LYMPH # 2.6 103/ul Normal 1.2-3.[address] [facility] Comment on above: Performed By: #### L IPA, CMP #### [facility] [address] [place] [address] Dr. Sandra Castano Lymphocytes/100 WBC (Bld) 28.8 % Normal 20.5-60.[address] [facility] Comment on above: Performed By: #### L IPA, CMP #### [facility] [address] [place] [address] Dr. Sandra Castano MANUAL DIFF REQ NO Normal [facility] Comment on above: Performed By: #### L IPA, CMP #### [facility] [address] [place] [address] Dr. Sandra Castano MCH (RBC) [Entitic mass] 29.2 pg Normal 26.7-34.[address] [facility] Comment on above: Performed By: #### L IPA, CMP #### [facility] [address] [place] [address] Dr. Sandra Castano MCHC (RBC) [Mass/Vol] 32.3 g/dL Normal 29.9-35.[address] [facility] Comment on above: Performed By: #### L IPA, CMP #### [facility] [address] [place] [address] Dr. Sandra Castano MCV (RBC) [Entitic vol] 90.4 fL Normal 81.0-99.[address] [facility] Comment on above: Performed By: #### L IPA, CMP #### [facility] [address] [place] [address] Dr. Sandra Castano MONO # 0.5 103/ul Normal 0.3-0.[address] [facility] Comment on above: Performed By: #### L IPA, CMP #### [facility] [address] [place] [address] Dr. Sandra Castano Monocytes/100 WBC (Bld) 5.4 % Normal 1.7-12.[address] [facility] Comment on above: Performed By: #### L IPA, CMP #### [facility] [address] [place] [address] Dr. Sandra Castano NEUT # 5.8 103/ul Normal 1.4-6.5 [facility] [facility] Comment on above: Performed By: #### L IPA, CMP #### [facility] [address] [place] [address] Dr. Sandra Castano Neutrophils/100 WBC (Bld) 63.7 % Normal 43.0-75.0 [facility] Comment on above: Performed By: #### L IPA, CMP #### [facility] [address] [place] [address] Dr. Sandra Castano Platelet mean volume (Bld) [Entitic vol] 11.0 fL Normal 9.5-13.[address] [facility] Comment on above: Performed By: #### L IPA, CMP #### [facility] [address] [place] [address] Dr. Sandra Castano PLT 370 103/ul Normal 150-450 [facility] Comment on above: Performed By: #### L IPA, CMP #### [facility] [address] [place] [address] Dr. Sandra Castano RBC 4.15 106/ul Critically low 4.20-5.40 [facility] Comment on above: Performed By: #### L IPA, CMP #### [facility] [address] [place] [address] Dr. Sandra Castano WBC 9.1 103/ul Normal 4.0-11.0 [facility] Comment on above: Performed By: #### L IPA, CMP #### [facility] [address] [place] [address] Dr. Sandra Castano FERRITINon 05-07-2022 Ferritin [Mass/Vol] 180.0 ng/mL Critically high 6.2-137.[address] [facility] Comment on above: Performed By: #### L IPA, CMP #### [facility] [address] [place] [address] Dr. Sandra Castano IRON AND TIBCon 05-07-2022 % SATURATION 19.4 % Normal [facility] Comment on above: Performed By: #### L IPA, CMP #### [facility] [address] [place] [address] Dr. Sandra Castano Iron [Mass/Vol] 43.0 ug/dL Critically low 50.0-170.0 [facility] Comment on above: Performed By: #### L IPA, CMP #### [facility] [address] [place] [address] Dr. Sandra Castano TIBC DIRECT 222.0 ug/dL Critically low 250.0-450.0 [facility] Comment on above: Performed By: #### L IPA, CMP #### [facility] [address] [place] [address] Dr. Sandra Castano MAGNESIUMon 05-07-2022 Magnesium [Mass/Vol] 1.8 mg/dL Normal 1.8-2.[address] [facility] Comment on above: Performed By: #### M G, CMP, PHOS #### [facility] [address] [place] [address] Dr. Sandra Castano PHOSPHORUSon 05-07-2022 Phosphate [Mass/Vol] 4.4 mg/dL Normal 2.6-4.[address] [facility] Comment on above: Performed By: #### M G, CMP, PHOS #### [facility] [address] [place] [address] Dr. Sandra Castano PROF 14(COMP METB)on 022 Albumin [Mass/Vol] 3.6 g/dL Normal 3.4-5.0 [facility] Comment on above: Performed By: #### M G, CMP, PHOS #### [facility] [address] [place] [address] Dr. Sandra Castano Albumin/Globulin [Mass ratio] 0.9 {ratio} Normal [facility] Comment on above: Performed By: #### M G, CMP, PHOS #### [facility] [address] [place] [address] Dr. Sandra Castano ALP [Catalytic activity/Vol] 106 U/L Normal 46-[address] [facility] Comment on above: Performed By: #### M Selin, CMP, PHOS #### [facility] [address] [address] [address] Sandra Castano ALT [Catalytic activity/Vol] 61 U/L Critically high 14-[address] [facility] Comment on above: Performed By: #### M Selin, CMP, PHOS #### [facility] [address] [address] [address] Sandra Castano Anion gap [Moles/Vol] 12.2 mmol/L Normal [facility] Comment on above: Performed By: #### M Selin CMP, PHOS #### [facility] [address] [place] [address] Dr. Sandra Castano AST [Catalytic activity/Vol] 35 U/L Normal 15-[address] [facility] Comment on above: Performed By: #### M Selin, CMP, PHOS #### [facility] [address] [place] [address] Dr. Sandra Castano Bilirubin [Mass/Vol] 0.5 mg/dL Normal 0.2-1.[address] [facility] Comment on above: Performed By: #### M Selin CMP, PHOS #### [facility] [address] [place] [address] Dr. Sandra Castano Calcium [Mass/Vol] 9.7 mg/dL Normal 8.5-10.1 [facility] Comment on above: Performed By: #### M G, CMP, PHOS #### [facility] [address] [place] [address] Dr. Sandra Castano Chloride [Moles/Vol] 101 mmol/L Normal 98-107 [facility] Comment on above: Performed By: #### M G, CMP, PHOS #### [facility] [address] [place] [address] Dr. Sandra Castano CO2 [Moles/Vol] 30.9 mmol/L Normal 21.0-32.0 [facility] Comment on above: Performed By: #### M G, CMP, PHOS #### [facility] [address] [address] [address] Sandra Castano Creatinine [Mass/Vol] 0.74 mg/dL Normal 0.55-1.[address] [facility] Comment on above: Performed By: #### M G, CMP, PHOS #### [facility] [address] [address] [address] Sandra Castano EGFR-AF HUNGARIAN >60 Normal >=60 [facility] Comment on above: Performed By: #### M G, CMP, PHOS #### [facility] [address] [address] [address] Sandra Castano EGFR-NON AF HUNGARIAN >60 Normal >=[address] [facility] Comment on above: Performed By: #### M G, CMP, PHOS #### [facility] [address] [address] [address] Sandra Castano Globulin (S) [Mass/Vol] 3.9 g/dL Normal [facility] Comment on above: Performed By: #### M G, CMP, PHOS #### [facility] [address] [address] [address] Sandra Castano Glucose [Mass/Vol] 98 mg/dL Normal 74-106 [facility] Comment on above: Performed By: #### M G, CMP, PHOS #### [facility] [address] [address] [address] Sandra Castano Potassium [Moles/Vol] 4.1 mmol/L Normal 3.5-5.[address] [facility] Comment on above: Performed By: #### M G, CMP, PHOS #### [facility] [address] [address] [address] Sandra Castano Protein [Mass/Vol] 7.5 g/dL Normal 6.4-8.2 [facility] Comment on above: Performed By: #### M G, CMP, PHOS #### [facility] [address] [address] [address] Sandra Castano Sodium [Moles/Vol] 140 mmol/L Normal 136-145 [facility] Comment on above: Performed By: #### M G, CMP, PHOS #### [facility] [address] [address] [address] Sandra Castano Urea nitrogen [Mass/Vol] 7.0 mg/dL Normal 7.0-18.[address] [facility] Comment on above: Performed By: #### M G, CMP, PHOS #### [facility] [address] [address] [address] Sandra Castano Urea nitrogen/Creatinine [Mass ratio] 9.5 mg/mg Normal [facility] Comment on above: Performed By: #### M G, CMP, PHOS #### [facility] [address] [address] [address] Sandra Castano VIT B12 AND FOLATEon 022 Cobalamin (Vitamin B12) [Mass/Vol] 1075.0 pg/mL Critically high 193.0-986.[address] [facility] Comment on above: Performed By: #### L IPA, CMP #### [facility] [address] [place] [address] Dr. Sandra Castano FOLATE 9.80 ng/mL Normal 8.60-58.[address] [facility] Comment on above: Performed By: #### L IPA, CMP #### [facility] [address] [place] [address] Dr. Sandra Castano VITAMIN D 25 OHon 05-07-2022 VIT D 25-OH 96.8 ng/mL Normal [facility] Comment on above: Performed By: #### L IPA, CMP #### [facility] [address] [place] [address] Dr. Sandra Castano VIT D RANGES SEE BELOW Normal [facility] Comment on above: Result Comment: <20 ng/mL Vit D deficient 20 - <30 ng/mL Vit D insufficient 30 - 100 ng/mL Vit D sufficient >100 ng/mL Potential Toxicity Performed By: #### L IPA, CMP #### [facility] [address] [place] [address] Dr. Sandra Castano BLOOD BANKOrdered By: Latrice Lopez on 03-24-2022 ABO/Rh Interp AB NEG Invalid Interpretation Code [facility] BB Subsection ABSC Gel Interp Negative (03/24/22 8:33 AM) Normal [facility] BB Subsection VITAMIN B1 (THIAMINE)on 12-30 Vit. B1, Whole Blood 154.0 nmol/L Normal 66.5-200.[address] [facility] Comment on above: Performed By: #### V ITB1T #### [facility] [address] [address] [address] Sandra Castano VIT D 25-OH LABCORPon 2021 Vitamin D, 25-Hydroxy 98.0 ng/mL Normal 30.0-100.[address] [facility] Comment on above: Result Comment: Wanda min D deficiency has been defined by the [place] [employer] and an Endocrine Society practice guideline as a level of serum 25-OH vitamin D less than 20 ng/mL (1,2). The Endocrine Society went on to further define vitamin D insufficiency as a level between 21 and 29 ng/mL (2). 1. IOM ([place] of [employer]). 2010. Dietary reference intakes for calcium and D. [place]: The National Academies Press. 2. [place] MF, Maya NC, Kesha OLGUIN, et al. Evaluation, treatment, and prevention of vitamin D deficiency: an Endocrine Society clinical practice guideline. JCEM. 2010; 96(7):1911-30. Performed By: #### L IPA, CMP #### [facility] [address] [address] [address] Sandra Castano CBC AUTO DIFFon 01-13-2022 BASO # 0.0 103/ul Normal 0.0-0.[address] [facility] Comment on above: Performed By: #### L IPA, CMP #### [facility] [address] [address] [address] Sandra Csatano Basophils/100 WBC (Bld) 0.5 % Normal 0.2-2.0 [facility] Comment on above: Performed By: #### L IPA, CMP #### [facility] [address] [address] [address] Sandra Castano EO # 0.1 103/ul Normal 0.0-0.[address] [facility] Comment on above: Performed By: #### L IPA, CMP #### [facility] [address] [place] [address] Dr. Sandra Castano Eosinophils/100 WBC (Bld) 2.0 % Normal 0.9-7.[address] [facility] Comment on above: Performed By: #### L IPA, CMP #### [facility] [address] [place] [address] Dr. Sandra Castano Erythrocyte distribution width (RBC) [Ratio] 13.7 % Normal 11.0-15.[address] [facility] Comment on above: Performed By: #### L IPA, CMP #### [facility] [address] [place] [address] Dr. Sandra Castano Hematocrit (Bld) [Volume fraction] 39.9 % Normal 36.0-48.[address] [facility] Comment on above: Performed By: #### L IPA, CMP #### [facility] [address] [place] [address] Dr. Sandra Castano Hemoglobin (Bld) [Mass/Vol] 13.0 g/dL Normal 12.0-16.[address] [facility] Comment on above: Performed By: #### L IPA, CMP #### [facility] [address] [place] [address] Dr. Sandra Castano IG # 0.02 10e3/ul Normal 0.00-0.[address] [facility] Comment on above: Performed By: #### L IPA, CMP #### [facility] [address] [place] [address] Dr. Sandra Castano IG % 0.3 % Normal 0.0-0.[address] [facility] Comment on above: Performed By: #### L IPA, CMP #### [facility] [address] [place] [address] Dr. Sandra Castano LYMPH # 1.6 103/ul Normal 1.2-3.[address] [facility] Comment on above: Performed By: #### L IPA, CMP #### [facility] [address] [place] [address] Dr. Sandra Castano Lymphocytes/100 WBC (Bld) 27.5 % Normal 20.5-60.[address] [facility] Comment on above: Performed By: #### L IPA, CMP #### [facility] [address] [place] [address] Dr. Sandra Castano MANUAL DIFF REQ NO Normal [facility] Comment on above: Performed By: #### L IPA, CMP #### [facility] [address] [place] [address] Dr. Sandra Castano MCH (RBC) [Entitic mass] 29.2 pg Normal 26.7-34.[address] [facility] Comment on above: Performed By: #### L IPA, CMP #### [facility] [address] [place] [address] Dr. Sandra Castano MCHC (RBC) [Mass/Vol] 32.6 g/dL Normal 29.9-35.[address] [facility] Comment on above: Performed By: #### L IPA, CMP #### [facility] [address] [place] [address] Dr. Sandra Castano MCV (RBC) [Entitic vol] 89.7 fL Normal 81.0-99.[address] [facility] Comment on above: Performed By: #### L IPA, CMP #### [facility] [address] [place] [address] Dr. Sandra Castano MONO # 0.4 103/ul Normal 0.3-0.[address] [facility] Comment on above: Performed By: #### L IPA, CMP #### [facility] [address] [place] [address] Dr. Sandra Castano Monocytes/100 WBC (Bld) 6.6 % Normal 1.7-12.[address] [facility] Comment on above: Performed By: #### L IPA, CMP #### [facility] [address] [place] [address] Dr. Sandra Castano NEUT # 3.7 103/ul Normal 1.4-6.[address] [facility] Comment on above: Performed By: #### L IPA, CMP #### [facility] [address] [place] [address] Dr. Sandra Castano Neutrophils/100 WBC (Bld) 63.1 % Normal 43.0-75.[address] [facility] Comment on above: Performed By: #### L IPA, CMP #### [facility] [address] [place] [address] Dr. Sandra Castano Platelet mean volume (Bld) [Entitic vol] 11.6 fL Normal 9.5-13.[address] [facility] Comment on above: Performed By: #### L IPA, CMP #### [facility] [address] [place] [address] Dr. Sandra Castano PLT 256 103/ul Normal 150-[address] [facility] Comment on above: Performed By: #### L IPA, CMP #### [facility] [address] [place] [address] Dr. Sandra Castano RBC 4.45 106/ul Normal 4.20-5.[address] [facility] Comment on above: Performed By: #### L IPA, CMP #### [facility] [address] [place] [address] Dr. Sandra Castano WBC 5.9 103/ul Normal 4.0-11.[address] [facility] Comment on above: Performed By: #### L IPA, CMP #### [facility] [address] [place] [address] Dr. Sandra Castano FERRITINon 01-13-2022 Ferritin [Mass/Vol] 108.0 ng/mL Normal 6.2-137.[address] [facility] Comment on above: Performed By: #### C ALCULI #### [facility] [address] [place] [address] Dr. Sandra Castano IRON AND TIBCon 01-13-2022 % SATURATION 20.6 % Normal [facility] Comment on above: Performed By: #### C ALCULI #### [facility] [address] [place] [address] Dr. Sandra Castano Iron [Mass/Vol] 47.0 ug/dL Critically low 50.0-170.0 [facility] Comment on above: Performed By: #### C ALCULI #### [facility] [address] [place] [address] Dr. Sandra Castano TIBC DIRECT 228.0 ug/dL Critically low 250.0-450.0 [facility] Comment on above: Performed By: #### C ALCULI #### [facility] [address] [place] [address] Dr. Sandra Castano MAGNESIUMon 01-13-2022 Magnesium [Mass/Vol] 1.7 mg/dL Critically low 1.8-2.[address] [facility] Comment on above: Performed By: #### C ALCULI #### [facility] [address] [place] [address] Dr. Sandra Castano PHOSPHORUSon 01-13-2022 Phosphate [Mass/Vol] 3.4 mg/dL Normal 2.6-4.[address] [facility] Comment on above: Performed By: #### L IPA, CMP #### [facility] [address] [place] [address] Dr. Sandra Castano PROF 14(COMP METB)on 022 Albumin [Mass/Vol] 3.8 g/dL Normal 3.4-5.0 [facility] Comment on above: Performed By: #### C ALCULI #### [facility] [address] [place] [address] Dr. Sandra Castano Albumin/Globulin [Mass ratio] 1.1 {ratio} Normal [facility] Comment on above: Performed By: #### C ALCULI #### [facility] [address] [place] [address] Dr. Sandra Castano ALP [Catalytic activity/Vol] 78 U/L Normal 46-116 [facility] Comment on above: Performed By: #### C ALCULI #### [facility] [address] [place] [address] Dr. Sandra Castano ALT [Catalytic activity/Vol] 34 U/L Normal 14-59 [facility] Comment on above: Performed By: #### C ALCULI #### [facility] [address] [place] [address] Dr. Sandra Castano Anion gap [Moles/Vol] 10.8 mmol/L Normal [facility] Comment on above: Performed By: #### C ALCULI #### [facility] [address] [address] [address] Sandra Castano AST [Catalytic activity/Vol] 20 U/L Normal 15-[address] [facility] Comment on above: Performed By: #### C ALCULI #### [facility] [address] [place] [address] Dr. Sandra Castano Bilirubin [Mass/Vol] 0.5 mg/dL Normal 0.2-1.[address] [facility] Comment on above: Performed By: #### C ALCULI #### [facility] [address] [place] [address] Dr. Sandra Castano Calcium [Mass/Vol] 9.2 mg/dL Normal 8.5-10.1 [facility] Comment on above: Performed By: #### C ALCULI #### [facility] [address] [place] [address] Dr. Sandra Castano Chloride [Moles/Vol] 102 mmol/L Normal 98-[address] [facility] Comment on above: Performed By: #### C ALCULI #### [facility] [address] [place] [address] Dr. Sandra Castano CO2 [Moles/Vol] 31.2 mmol/L Normal 21.0-32.0 [facility] Comment on above: Performed By: #### C ALCULI #### [facility] [address] [place] [address] Dr. Sandra Castano Creatinine [Mass/Vol] 0.78 mg/dL Normal 0.55-1.[address] [facility] Comment on above: Performed By: #### C ALCULI #### [facility] [address] [place] [address] Dr. Sandra Castano EGFR-AF HUNGARIAN >60 Normal >=60 [facility] Comment on above: Performed By: #### C ALCULI #### [facility] [address] [place] [address] Dr. Sandra Castano EGFR-NON AF HUNGARIAN >60 Normal >=60 [facility] Comment on above: Performed By: #### C ALCULI #### [facility] [address] [place] [address] Dr. Sandra Castano Globulin (S) [Mass/Vol] 3.6 g/dL Normal [facility] Comment on above: Performed By: #### C ALCULI #### [facility] [address] [place] [address] Dr. Sandra Castano Glucose [Mass/Vol] 101 mg/dL Normal 74-106 [facility] Comment on above: Performed By: #### C ALCULI #### [facility] [address] [place] [address] Dr. Sandra Castano Potassium [Moles/Vol] 4.0 mmol/L Normal 3.5-5.[address] [facility] Comment on above: Performed By: #### C ALCULI #### [facility] [address] [place] [address] Dr. Sandra Castano Protein [Mass/Vol] 7.4 g/dL Normal 6.4-8.2 [facility] Comment on above: Performed By: #### C ALCULI #### [facility] [address] [place] [address] Dr. Sandra Castano Sodium [Moles/Vol] 140 mmol/L Normal 136-145 [facility] Comment on above: Performed By: #### C ALCULI #### [facility] [address] [place] [address] Dr. Sandra Castano Urea nitrogen [Mass/Vol] 14.0 mg/dL Normal 7.0-18.[address] [facility] Comment on above: Performed By: #### C ALCULI #### [facility] [address] [place] [address] Dr. Sandra Castano Urea nitrogen/Creatinine [Mass ratio] 17.9 mg/mg Normal [facility] Comment on above: Performed By: #### C ALCULI #### [facility] [address] [place] [address] Dr. Sandra Castano VIT B12 AND FOLATEon 022 Cobalamin (Vitamin B12) [Mass/Vol] 1475.0 pg/mL Critically high 193.0-986.[address] [facility] Comment on above: Performed By: #### C ALCULI #### [facility] [address] [place], [place] [address] Dr. Sandra Castano FOLATE 11.80 ng/mL Normal 8.60-58.90 [facility] Comment on above: Performed By: #### C GEETHA #### [facility] [address] [place], [place] [address] Dr. Sandra Castano MG MAMM SCREEN 3D PENG CADon 12-03-2021 MG MAMM SCREEN 3D PENG CAD Patient: JASMIN CALVILLO Exam Date: 12/03/2021 : 1975 Gender:F Ordering : DR LUDY LAINEZ . Admission #: [id number] Family : Order #: [id number] CLICK HERE TO VIEW EXAM RADIOLOGY REPORT [...] colon cancer at age 67. LOCATION: [facility] BREAST COMPOSITION: Scattered areas fibroglandular density. [...] M.D. on 12/03/2021 at 12:49 Normal [facility] LOWER EXTREMITY JOINT SURVEY on 02-19-2021 LOWER EXTREMITY JOINT SURVEY [facility] Department of Radiology [address] [place] [id number] == Patient Name: JASMIN CALVILLO : [...] extremity. Electronically signed: Dylon Duenas. Transcribed by: [id number], User Resident: Electronically Signed by: DYLON DUENAS @ 02/20/2021 12:06 PM Normal [facility] Comment on above: Order Comment: Evalu ate Vital Signs Date Time Vital Sign Value Performing Clinician Facility 06-10-2023 09:20-0500 Diastolic blood pressure 80 mm[Hg] Romi Lue [facility] 06-10-2023 09:20-0500 Mean blood pressure 101 mm[Hg] Romi Lue [facility] 06-10-2023 09:20-0500 Systolic blood pressure 142 mm[Hg] Romi Lue [facility] 06-10-2023 09:06-0500 Blood Pressure Location Romi Lue [facility] 06-10-2023 09:06-0500 Diastolic blood pressure 86 mm[Hg] Romi Lue [facility] 06-10-2023 09:06-0500 Heart rate 71 /min Romi Lue [facility] 06-10-2023 09:06-0500 Systolic blood pressure 144 mm[Hg] Romi Lue [facility] 09-04-2022 08:32-0400 Blood Pressure Location Romi Lue [facility] 09-04-2022 08:32-0400 Diastolic blood pressure 82 mm[Hg] Romi Lue [facility] 09-04-2022 08:32-0400 Heart rate 57 /min Romi Lue [facility] 04-06-2023 08:32-0400 Respiratory rate 16 /min Romi Lue [facility] 09-04-2022 08:32-0400 Systolic blood pressure 138 mm[Hg] Romi Lue [facility] 07-02-2022 09:14-0500 Blood Pressure Location Romi Lue [facility] 07-02-2022 09:14-0500 Diastolic blood pressure 78 mm[Hg] Romi Lue [facility] 07-02-2022 09:14-0500 Heart rate 68 /min Romi Lue [facility] 07-02-2022 09:14-0500 Respiratory rate 16 /min Romi Lue [facility] 07-02-2022 09:14-0500 Systolic blood pressure 124 mm[Hg] Romi Lue [facility] 03-24-2022 16:38-0400 Blood Pressure Location [facility] [facility] 03-24-2022 16:38-0400 Diastolic blood pressure 78 mm[Hg] Miles Guevara [facility] 03-24-2022 16:38-0400 Heart rate 61 /min Miles Guevara [facility] 03-24-2022 16:38-0400 Mean blood pressure 95 mm[Hg] Miles Guevara [facility] 03-24-2022 16:38-0400 Respiratory rate 18 /min Miles Guevara [facility] 03-24-2022 16:38-0400 SaO2% (BldA) [Mass fraction] 98 % Miles Guevara [facility] 03-24-2022 16:38-0400 Systolic blood pressure 131 mm[Hg] Miles Guevara [facility] 03-24-2022 15:16-0400 Blood Pressure Location Miles Ismael [facility] 03-24-2022 15:16-0400 Diastolic blood pressure 75 mm[Hg] Miles Guevara [facility] 03-24-2022 15:16-0400 Heart rate 66 /min Miles Guevara [facility] 03-24-2022 15:16-0400 Mean blood pressure 96 mm[Hg] Miles Guevara [facility] 03-24-2022 15:16-0400 Respiratory rate 18 /min Miles Guevara [facility] 03-24-2022 15:16-0400 SaO2% (BldA) [Mass fraction] 98 % Miles Guevara [facility] 03-24-2022 15:16-0400 Systolic blood pressure 138 mm[Hg] Miles Ismael [facility] 03-24-2022 13:37-0400 Blood Pressure Location Miles Guevara [facility] 03-24-2022 13:37-0400 Diastolic blood pressure 74 mm[Hg] Miles Guevara [facility] 03-24-2022 13:37-0400 Heart rate 65 /min Miles Guevara [facility] 03-24-2022 13:37-0400 Mean blood pressure 106 mm[Hg] Miles Guevara [facility] 03-24-2022 13:37-0400 Respiratory rate 18 /min Miles Guevara [facility] 03-24-2022 13:37-0400 SaO2% (BldA) [Mass fraction] 100 % Miles Guevara [facility] 03-24-2022 13:37-0400 Systolic blood pressure 171 mm[Hg] Miles Guevara [facility] 03-24-2022 13:30-0400 Body temperature 98.24 [degF] Miles Guevara [facility] 03-24-2022 13:30-0400 Respiratory rate 10 /min Miles Guevara [facility] 03-24-2022 13:15-0400 Respiratory rate 11 /min Miles Guevara [facility] 03-24-2022 13:00-0400 Respiratory rate 13 /min Miles Guevara [facility] 03-24-2022 12:30-0400 Body temperature 98.06 [degF] Miles Guevara [facility] 03-24-2022 08:21-0400 Body temperature 97.7 [degF] Miles Guevara [facility] 03-24-2022 08:21-0400 Heart rate 72 /min Miles Guevara [facility] Encounters Encounter Date Encounter Type Care Provider Facility Start: 2023 ambulatory Romi Sarmiento Facility:[facility] Start: 09-11-2023 ambulatory Radha Leo Facility: [facility] Start: 06-10-2023 End: 06-11-2023 ambulatory Romi Sarmiento Facility:[facility] [place] Start: 06-10-2023 End: 06-10-2023 Patient encounter procedure Romi Sarmiento [facility] Start: 12-03-2022 End: 12-04-2022 ambulatory Romi M. Lue Facility:[facility] Start: 10-24-2022 End: 10-25-2022 ambulatory Radha L Felipa Facility:[facility] Start: 10-24-2022 End: 10-24-2022 Lab Drop off Radha L Felipa [facility] Start: 10-20-2022 ambulatory Romi M. Lue Facility:[facility] [place] Start: 10-08-2022 ambulatory Radha Felipa Facility:[facility] Start: 09-04-2022 End: 09-05-2022 ambulatory ROMI M LUE . Facility: Start: 09-04-2022 End: 09-04-2022 Patient encounter procedure Romi M. Lue [facility] Start: 08-30-2022 End: 08-31-2022 ambulatory ROMI M LUE . Facility: Start: 07-30-2022 End: 07-30-2022 ambulatory ROMI M LUE . Facility:[facility] Start: 07-24-2022 Encounter for preprocedural laboratory examination ROMI M LUE . [facility] Start: 07-18-2022 End: 07-19-2022 ambulatory ERICK KRAFT Facility:[facility] Start: 07-18-2022 End: 07-19-2022 Encounter for preprocedural laboratory examination ERICK KRAFT Facility:[facility] Start: 07-10-2022 End: 07-11-[address] ETTA CEDEÑO Facility:[facility] Start: 07-02-2022 End: 07-02-2022 Patient encounter procedure Romi M. Lue [facility] Start: 06-30-2022 End: 07-01-[address] ETTA CEDEÑO Facility:[facility] Start: 06-13-2022 End: 06-13-2022 Patient encounter procedure Romi M. Lue [facility] Start: 06-06-2022 End: 06-07-[address] ETTA CEDEÑO Facility:[facility] Start: 05-27-2022 End: 05-28-[address] CINDI Jerry Facility:[facility] Start: 05-07-2022 End: 05-08-[address] DOCTOR PALACIOS Facility:[facility] Start: 03-24-2022 End: 03-24-2022 Admission to same day surgery center Miles Guevara [facility] Start: 01-13-2022 End: 01-14-2022 ambulatory MARY SOTO Facility:[facility] Start: 12-03-2021 End: 12-04-[address] LUDY LAINEZ . Facility:[facility] Procedures Date Procedure Procedure Detail Performing Clinician Start: 07-30-2022 Lipoatrophy (disorder) Radha Leo Start: 06-01-1992 History of operative procedure on knee Miles Guevara Esophagogastrostomy, antesternal or antethoracic Miles Guevara Extraction of wisdom tooth M nohemy Guevara H/O: tubal ligation Miles Guevara Hand tendon operation Michae mike Guevara Immunizations Immunization Date Immunization Notes Care Provider Kari colindres 03-17-2023 influenza virus vaccine, unspecified formulation Romi Sarmiento [facility] 03-06-2023 influenza virus vaccine, unspecified formulation Romi Sarmiento [facility] 04-28-2022 influenza virus vaccine, unspecified formulation Romi Sarmiento [facility] 04-28-2022 SARS-CoV-2 (COVID-19 ) [id number] Romi Lue [facility] 05-21-2021 SARS-CoV-2 (COVID-19 ) mRNA BNT-162b2 vax [...] [facility] 02-08-2020 influenza virus vaccine, unspecified formulation Romi [...] unspecified formulation Romi Lue [facility] Payers Date Payer Category Payer Unknown [id number] 2.16.84 [id number] 1974 Unknown [id number] 2.16.84 [id number] 1974 Unknown [id number] 2.16.84 0.1.035827.3.579.2.593 1974 Unknown [id number] 2.16.84 0.1.688704.3.579.2.593 1974 Unknown [id number] 2.16.84 0.1.187007.3.579.2.593 1974 Unknown [id number] 2.16.84 0.1.583216.3.579.2.593 1974 Unknown [id number] 2.16.84 0.1.862711.3.579.2.593 1974 Unknown [id number] 2.16.84 0.1.738599.3.579.2.593 1974 Unknown [id number] 2.16.84 0.1.947400.3.579.2.593 1974 Unknown [id number] 2.16.84 0.1.266884.3.579.2.593 1974 Unknown [id number] 2.16.84 0.1.839833.3.579.2.593 1974 Unknown [id number] 2.16.8 40.1.289487.3.579.2.727 1974 Unknown [id number] 2.16.8 40.1.199989.3.579.2.727 1974 Unknown [id number] 2.16.8 40.1.999026.3.579.2.727 1974 Unknown [id number] 2.16.8 40.1.513920.3.579.2.727 1974 Unknown [id number] 2.16.8 40.1.895989.3.579.2.727 1974 Unknown [id number] 2.16.8 40.1.734240.3.579.2.727 1974 Unknown [id number] 2.16.8 40.1.904489.3.579.2.727 1959 Unknown [id number] 1959 Unknown [id number] Self-pay Self Pay [id number] Social History Date Type Detail Facility [facility] Start: 1975 Sex Assigned At Female F [facility] Tobacco smoking status No Smokin g Status Entered [facility] Sex Assigned At Female [facility] Start: 06-13-2022 End: 06-10-2023 Tobacco smoking status [...] Guevara DO 03/24/22 Non Biological Knee R {[id number] {[id number]{17} [id number] FDA Start: 03-24-2022 Goals Date Patient Goal Desired Activity /State Functional Status Date Assessment Result Facility 06-10-2023 Functional Status N/A [facility] 09-04-2022 Functional Status N/A [facility] 07-02-2022 Functional Status N/A [facility] 06-13-2022 Functional Status N/A [facility] Wendy Clinical Notes 03-24-2022 to 06-10-2023 [...] include: ?8 oz (237 mL) of milk, nsqtzrx-yqhaomvwyomo-szcye milk, and calcium-fortifiedfruit juice. Calcium-fortified means that [...] ?Spinach (cooked), rhubarb, beets, sweet potatoes, and Ecuadorean chard. ?Peanuts. ?Potato chips, swiss fries, and baked potatoes with skin on. ?Nuts and nut products. ?Chocolate. If you regularly take a diuretic medicine, make sure to eat at least 1 or 2 servings of fruits or vegetables that are high in potassium each day. These include: ?Avocado. ?Banana. ?[place], prune, carrot, or tomato juice. ?Baked potato. [...] magnesium, fish oil, or vitamin B6. Take ncxe-blj-ohlnhab and prescription medicines only as told by [...] Casseroles. Pizza. Lasagna. Frozen meals. Potato chips. Egyptian fries. The items listed above may not [...] provider. Document Revised: 08/28/2022 Document Reviewed: 08/28/2022 [employer] Patient Education 2022 [employer]. Follow Up Care 12/03/2022 08:49:17 With:Torsten DIAMOND, KT Jolley, URO Address: [address], [place] [address] [phone] When: Unknown Comments:6 mos deyvi/ NEAL and OSCAR [facility] 09-04-2022 Hospital Discharg e instructions Patient Education 09/04/2022 09:31:21 Kidney Stones, Eevv-ff-Gfgt Kidney Stones Kidney stones are rock-like masses [...] Follow these instructions at home: Medicines Take ikrv-laa-sidpsge and prescription medicines only as told by [...] 11/03/2008 Document Revised: 10/04/2019 Document Reviewed: 10/04/2019 Elsevier Patient Education 2019 [employer]. Follow Up Care 08/01/2022 14:22:05 With:Torsten DIAMOND, KT Jolley, URO Address: When: Unknown [facility] 07-02-2022 Hospital Discharg e instructions Patient [...] include: ?Spinach. ?Rhubarb. ?Beets. ?Potato chips and swiss fries. ?Nuts. If you regularly take a diuretic medicine, make sure to eat at least 1 2 fruits or vegetables high in potassium each day. These include: ?Avocado. ?Banana. ?[place], prune, carrot, or tomato juice. ?Baked potato. [...] Casseroles. Pizza. Lasagna. Frozen meals. Potato chips. Egyptian fries. Summary You can reduce your risk [...] 09/12/2011 Document Revised: 09/07/2019 Document Reviewed: 04/28/2017 [employer] Patient Education 2020 [employer]. Follow Up Care 06/13/2022 11:44:22 With:Torsten DIAMOND, KT Jolley, URO Address: When: Unknown [facility] 06-13-2022 Hospital Discharg e instructions Patient Education [...] include: ?Spinach. ?Rhubarb. ?Beets. ?Potato chips and swiss fries. ?Nuts. If you regularly take a diuretic medicine, make sure to eat at least 1 2 fruits or vegetables high in potassium each day. These include: ?Avocado. ?Banana. ?[place], prune, carrot, or tomato juice. ?Baked potato. [...] Casseroles. Pizza. Lasagna. Frozen meals. Potato chips. Egyptian fries. Summary You can reduce your risk [...] 09/12/2011 Document Revised: 09/07/2019 Document Reviewed: 04/28/2017 [employer] Patient Education 2020 [employer]. Follow Up Care 05/29/2022 15:18:35 With:Torsten DIAMOND, [...] as possible. If the spirometer includes a student success coach indicator, use this to guide you [...] 09/28/2007 Document Revised: 06/10/2018 Document Reviewed: 03/31/2018 [employer] Patient Education 2020 [employer]. 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 It is therefore advised not to drive until after your first office visit following surgery FOLLOW-UP OFFICE VISIT: Miles Guevara, DO [facility] [address] [place] [phone] Reviewed: 09-06 Follow Up Care 02/13/2022 09:46:16 With:Miles Guevara Address: [address] [place] [address] Business (1) When: Unknown Comments:Keep scheduled appointment [facility] 03-24-2022 Evaluation + Plan note Extrac mulu from: Title:Post-anesthesia - General Author:Ashvin Gipson DO Date:03/24/22 Plan Transfer/ Discharge: Condition stable. Extracted from: Title:Pre-anesthesia - Adult Author:Ashvin Bartlett Jr., DO Date:03/24/22 Plan [place] [employer] Anesthesiologists (ASA) physical status classification: Class II. Anesthetic Preoperative Plan Anesthesia: General. , Regional Adductor canal block. Anesthetic plan, risks, benefits, and alternatives discussed with the patient and/or family. Patient verbalized understanding. Adverse reactions, complications, and alternatives discujssed. Consent signed and on chart.. [facility] Future App[facility]ments Appointment Date:07/02/2022 09:30:00 AM Scheduled Provider:Romi Sarmiento MD Location:[facility] Appointment Type:URO Office Visit [facility] Evaluation + Plan note Future Appointments Appointment Date:10/20/2022 03:30:00 PM Scheduled Provider:Romi Sarmiento MD Location:[facility] Appointment Type:URO Video Visit Diagnostic Tests Pending * PTH Intact 09/04/22 * Uric Acid 09/04/22 [facility] Evaluation + Plan note Future Appointments Appointment Date:12/03/2022 08:30:00 AM Scheduled Provider:Romi Sarmiento MD Location:[facility] Appointment Type:URO Office Visit Diagnostic Tests Pending * PAP [id number] w/ HPV and Genotype rflx 10/24/22 [facility] Future Appointments Appointment Date:2023 09:00:00 AM Scheduled Provider:Romi Sarmiento MD Location:[facility] Appointment Type:URO Office Visit [facility] Hospital course Narrative No data available for this section [facility] No data available for this section [facility] No data available for this section [facility] Assessments No Assessments Information Available Summary Purpose [...] 02/21/2021 [facility] DATE CREATED AUTHOR AUTHOR'S ORGANIZ ATION 09/14/2022 [facility] DATE CREATED AUTHOR AUTHOR'S ORGANIZ ATION 09/11/2023 [facility] Patient Care team informatio n (unrecognized section and content) Personnel Name: LUDY LAINEZ MD Address: Address: [address] [place] [address] Personnel Name: LUDY LAINEZ MD Address: Address: [address] [place] [address] Personnel Name: LUDY LAINEZ MD Address: Address: [address] [place] [address] Personnel Name: LUDY LAINEZ MD Address: Address: [address] [place] [address] Personnel Name: Radha Farley Address: Address: [address] [place] [address]- Personnel Name: Radha Farley Address: Address: [address] [place] [address]- FOR RECORDS PERTAINING TO PATIENTS WHO ARE [...] BE BASED ON THE PRIMARY CLINICAL RECORDS. [facility] [employer] [facility]. provides no warranty or guarantee of the accuracy or completeness of information in this document.
== END 2023-09-12 13:49 | disposition home or self-care (01) ==
PROVIDERS: PCP Nurse Practitioner; Visit Provider Nurse Practitioner
DX: R10.2 Pelvic and perineal pain (principal)
CPT/HCPCS: 76830; 76856

== ENCOUNTER 2023-10-23 09:16 | Outpatient (OUT) | payer OTHER, SELFPAY ==
[2023-10-23 09:53] LABS: Basophils Absolute Auto 0.1 10^3/uL (0.0-0.1); Basophils Percent Auto 0.8 % (0.2-2.0); Eosinophils Absolute Auto 0.1 10^3/uL (0.0-0.7); Eosinophils Percent Auto 1.3 % (0.9-7.0); Hemoglobin 13.3 g/dL (12.0-16.0); Immature Granulocytes Abs Auto 0.01 10^3/uL (0.00-0.03); Immature Granulocytes Pct Auto 0.1 % (0.0-0.5); Lymphocytes Absolute Auto 1.6 10^3/uL (1.2-3.8); Lymphocytes Percent Auto 20.3 % (20.5-60.0); Mean Corpuscular HGB Conc 33.3 g/dL (29.9-35.2); Mean Corpuscular Hemoglobin 30.9 pg (26.7-34.0); Mean Platelet Volume 11.4 fL (9.5-13.5); Monocytes Absolute Auto 0.4 10^3/uL (0.3-0.8); Monocytes Percent Auto 4.7 % (1.7-12.0); Neutrophils Absolute Auto 5.6 10^3/uL (1.4-6.5); Neutrophils Percent Auto 72.8 % (43.0-75.0); Platelet Count 285 10^3/uL (150-450); Red Cell Distribution Width 12.1 % (11.0-15.0); White Blood Count 7.7 10^3/uL (4.0-11.0)
[2023-10-23 11:01] LABS: Alanine Aminotransferase 126 U/L (14-59); Albumin Level 3.8 g/dL (3.4-5.0); Alkaline Phosphatase 81 U/L (46-116); Anion Gap 13.5; Aspartate Amino Transferase 70 U/L (15-37); BUN Creatinine Ratio 22.8; Bilirubin Total 0.6 mg/dL (0.2-1.0); Carbon Dioxide 28.4 mmol/L (21.0-32.0); Chloride 103 mmol/L (98-107); Estimated GFR (African America >60 (>=60); Estimated GFR (Non-African Ame >60 (>=60); Globulin 3.8 g/dL; Glucose 99 mg/dL (74-106); Magnesium 1.9 mg/dL (1.8-2.4); Phosphorus 3.6 mg/dL (2.6-4.7); Potassium 3.9 mmol/L (3.5-5.1); Sodium 141 mmol/L (136-145); Total Protein 7.6 g/dL (6.4-8.2)
[2023-10-23 11:02] LABS: Percent Iron Saturation 26.9 %
[2023-10-28 22:07] LABS: Vitamin B1 (Thiamine), Blood 126.3 nmol/L (66.5-200.0)
== END 2023-10-23 09:17 | disposition home or self-care (01) ==
PROVIDERS: PCP Nurse Practitioner; Visit Provider Nurse Practitioner Family
DX: K90.9 Intestinal malabsorption, unspecified (principal); Z98.84 Bariatric surgery status; D50.9 Iron deficiency anemia, unspecified; D64.9 Anemia, unspecified; M19.90 Unspecified osteoarthritis, unspecified site; R60.9 Edema, unspecified
CPT/HCPCS: 36415; 80053; 82306; 82607; 82728; 82746; 83540; 83550; 83735; 84100; 84425; 85025

== ENCOUNTER 2023-11-30 10:46 | Outpatient (OUT) | payer OTHER, SELFPAY ==
--- NOTE | 2023-11-30 10:51 | XR_ITS ---
The [address] [address] Patient Name: JASMIN CALVILLO MRN: [id number] date: 1975 Sex: F Assigned Patient Location: Current Patient Location: Accession/Order Number: [id number] Exam Date: 11/30/2023 10:54 Report Date: 12/01/2023 13:28 At the request of: MARCEILNO STEVENS Procedure: XR abdomen 1V EXAMINATION: XR abdomen 1V HISTORY: Kidney Stone COMPARISON: No relevant comparison available. FINDINGS: KIDNEY/URETER - RIGHT: Contains several small calcifications. KIDNEY/URETER - LEFT: Contains several calcifications, the largest may represent an 18 mm calcification or collection of smaller stones. PELVIS: No appreciable ureteral stones. Grossly stable pelvic calcifications favoring phleboliths. BOWEL: No abnormal dilation or deviation. BONES: No acute abnormality. OTHER: Negative. No abnormal gaseous collections. XR/XR abdomen 1V IMPRESSION: 1. Bilateral nephrolithiasis; increased versus better seen compared to prior study. Electronically authenticated by: ETTA DICKSON Date: 12/01/2023 13:28
--- NOTE | 2023-11-30 10:51 | US_ITS ---
The [address] [address] Patient Name: JASMIN CALVILLO MRN: [id number] date: 1975 Sex: F Assigned Patient Location: US Current Patient Location: US Accession/Order Number: [id number] Exam Date: 11/30/2023 11:00 Report Date: 12/01/2023 13:43 At the request of: MARCELINO STEVENS Procedure: US renal BI EXAMINATION: US renal BI HISTORY: Kidney Stone follow-up COMPARISON: CT abdomen pelvis 09/02/2023 TECHNIQUE: Ultrasound examination was performed of the kidneys and urinary bladder. FINDINGS: RIGHT KIDNEY: Contain several nonobstructing stones, largest is 6 x 5 x 3 mm. No appreciable mass or significant cortical thinning. Kidney: 9.9 x 5.2 x 4.4 cm LEFT KIDNEY: Contain several nonobstructing stones, largest is 18 x 10 x 6 mm. No appreciable mass or significant cortical thinning. Kidney: 10.6 x 5.0 x 6.1 cm BLADDER: No visible wall thickening, mass, or calculi. US/US renal BI IMPRESSION: 1. Bilateral nonobstructing nephrolithiasis; allowing for differences in technique, no appreciable significant change compared to 09/02/2023 CT abdomen and pelvis. Electronically authenticated by: ETTA DICKSON Date: 12/01/2023 13:43
--- OUTSIDE RECORDS SUMMARY | 2023-11-30 11:07 | XMS_ITS | CCD ---
Author Organization [facility] Care Team Providers Care Apprentice Cook Name Role Phone LUDY LAINEZ Primary Care [...] Unavailable LUE ., ROMI M Consulting Unavailable ZIEBTARUN, DR ETTA Hopkins Consulting Unavailable [...] ROMI M Consulting Unavailable LAINEZ ., DR LUYD French Primary Care Unavailable LUE ., ROMI M Attending Unavailable LUE ., ROMI Patel Admitting Unavailable LAINEZ ., DR LUDY French Consulting Unavailable LAINEZ ., DR LUDY French Primary Care Unavailable LAINEZ ., DR LUDY French Attending Unavailable LAINEZ ., DR LUDY French Admitting Unavailable ZIEBER, DR ETTA Hopkins Consulting Unavailable MARY SOTO Consulting Unavailable LAINEZ ., DR LUDY French Primary Care Unavailable BRITTANY, MARY Attending Unavailable BRITTANY, MARY Admitting Unavailable PAY ., DR PUENTE Consulting Unavailable PAY ., DR PUENTE Attending Unavailable PAY ., DR PUENTE Admitting Unavailable LAINEZ ., DR LUDY French Primary Care Unavailable RITA TAYLOR Consulting Unavailable MEGHA RESENDIZ Consulting Unavailable IVETT THOMPSON Consulting Unavailable Radha Leo Primary Care Physician MARSHALL LYON Attending Unavailable Romi Sarmiento Attending Unavailable Romi Sarmiento Attending Unavailable Felipa, MANAGER ELIGIBILITY Radha Ocampo Admitting Unavailable Felipa, MANAGER ELIGIBILITY Radha Ocampo Attending Unavailable Felipa, MANAGER ELIGIBILITY Radha Ocampo Attending Unavailable Felipa, MANAGER ELIGIBILITY Radha Ocampo Attending Unavailable Felipa, MANAGER ELIGIBILITY Radha Ocampo Attending Unavailable Romi Sarmiento Attending Unavailable Unavailable Unavailable Unavailable Allergies Allergy Classification Reported Allergen(s) Allergy Type Date of Onset Reaction(s) Facility (1 source) No Known Medication Allergies; Translations: [No Known Medication Allergies] Propensity to adverse reactions (disorder) [facility] Repository Medications Current Medications Medication Drug Class(es) Dates Sig (Normalized) Sig (Original) acetaminophen 325 mg / oxyCODONE hydrochloride 5 mg oral tablet (1 source) Opioid Agonist Start: 03-22-2022 Percocet 325 mg-5 mg Tab See Instructions, 50 tab(s), Refill(s) 0, 1- 2 tab(s) Oral q4hr PRN post operative knee replacement pain. Duration 7 days, [facility][id number], 165, cm, 02/26/22 12:16:00 EDT, Height/Length Dosing, [...] day(s), # 30 tab(s), Refills(s) 0, Pharmacy: [facility] #[id number], 165, cm, 02/26/22 12:16:00 EDT, Height/Length Dosing, 85.1, kg, 02/26/22 12:16:... Start Date: 03/22/22 Stop Date: 04/21/22 Status: Ordered Bariatric Multivitamins with 45 mg Iron oral capsule (7 sources) Start: 02-26-2022 take 1 capsule by [...] day(s), # 20 cap(s), Refills(s) 0, Pharmacy: [facility] #[id number], 165, cm, 02/26/22 12:16:00 EDT, Height/Length Dosing, 85.1, kg, 02/26/22 12:16:00 EDT, Weight Do... Start Date: 03/22/22 Stop Date: 03/27/22 Status: Ordered docusate sodium 100 mg oral capsule (1 source) Start: 03-22-2022 take 1 capsule by mouth twice daily Colace 100 mg Cap 100 mg = 1 cap(s), Oral, BID, # 20 cap(s), Refills(s) 0, Pharmacy: [facility] #[id number], 165, cm, 02/26/22 12:16:00 EDT, Height/Length Dosing, 85.1, kg, 02/26/22 12:16:00 EDT, Weight Dosing Start Date: 03/22/22 Status: Ordered omeprazole 40 mg delayed release oral capsule (1 source) Proton Pump Inhibitor Start: 09-11-2023 take 1 capsule by mouth once daily omeprazole 40 mg Cap-DR 40 mg = 1 cap(s), Oral, Daily, # 90 cap(s), Refills(s) 3, Pharmacy: [facility] #[id number], 165, cm, 09/11/23 11:19:00 EDT, Height/Length Dosing, 64.8, kg, 09/11/23 11:19:00 EDT, Weight Dosing Start Date: 09/11/23 Status: Ordered promethazine hydrochloride 25 mg oral tablet (6 sources) Phenothiazine Start: 03-22-2022 take 1 tablet by mouth every four hours as needed for nausea promethazine 25 mg Tab 25 mg = 1 tab(s), Oral, q4hr, PRN for nausea/vomiting, Post knee surgery nausea/vomiting, # 20 tab(s), Refills(s) 0, Pharmacy: [facility] #[id number], 165, cm, 02/26/22 12:16:00 EDT, Height/Length Dosing, 85.1, kg, 02/26/22 12:16:00 EDT, Weight Dosing Start Date: 03/22/22 Status: Ordered tamsulosin hydrochloride 0.4 mg oral capsule (2 sources) alpha-Adrenergic Chaya Start: 06-13-2022 take 1 capsule by mouth once daily Flomax 0.4 mg Cap 0.4 mg = 1 cap(s), Oral, Daily, # 30 cap(s), Refills(s) 1, Pharmacy: [facility] #[id number], 165, cm, 06/13/22 9:38:00 EST, Height/Length Dosing, 73.5, kg, 06/13/22 9:38:00 EST, Weight Dosing Start Date: 06/13/22 Status: Ordered Completed/Discontinued Medications Medication Drug Class(es) Dates Sig (Normalized) Sig (Original) Calcium Citrate (7 sources) Start: 02-26-2022 take 2 tablets by mouth twice daily calcium citrate Tab 500 mg, Oral, BID, 2 tabs twice a day, Prophylaxis Start Date: 02/26/22 Status: Ordered Problems Active Problems Problem Classification Problem Date Documented Da te Episodic/Chronic Abdominal pain (5 sources) Unspecified abdominal pain; Translations: [Pain in pelvis] Onset: 2 Episodic Acquired foot deformities (8 sources) Foot-drop Onset: 1 02-26-2022 Episodic Calculus of urinary tract (20 sources) Kidney stone; Translations: [Calculus of kidney] Onset: 3 Episodic Esophageal disorders (1 source) Gastroesophageal reflux disease 09-11-2023 Chronic Essential hypertension (7 sources) Hypertensive disorder; Translations: [Essential (primary) hypertension] Onset: 3 06-13-2022 Chronic Genitourinary symptoms and ill-defined conditions (5 sources) Microscopic hematuria; Translations: [Asymptomatic microscopic hematuria] Onset: 3 Episodic Joint disorders and dislocations; trauma-related (1 source) 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 Menstrual disorders (1 source) Disorder of menstruation 09-11-2023 Chronic Osteoarthritis (20 sources) Osteoarthritis of knee; Translations: [Unilateral primary osteoarthritis, right knee] Onset: 1 Chronic Other aftercare (1 source) Other nursing home (current) drug therapy; Translations: [OTH SHELTER CURRENT DRUG THERAPY] Onset: 3 Episodic Other connective tissue disease (1 source) Presence of right artificial knee joint; Translations: [PRESENCE RT ARTIFICIAL KNEE JOINT] Onset: 3 Chronic Other diseases of kidney and ureters (4 sources) Hydronephrosis with renal and ureteral calculous obstruction; Translations: [HYDRONPHROS RENL AND URETRL CALCUL OBST] Onset: 3 Episodic Other diseases of kidney and ureters (1 source) Unspecified hydronephrosis; Translations: [UNSPECIFIED HYDRONEPHROSIS] Onset: 3 Episodic Other gastrointestinal disorders (5 sources) Intestinal malabsorption, unspecified; Translations: [INTESTINAL MALABSORPTION UNS] Onset: 2 Chronic Other gastrointestinal disorders (1 source) Bariatric surgery status; Translations: [BARIATRIC SURGERY STATUS] Onset: 3 Episodic Residual codes; unclassified (1 source) Other specified postprocedural states; Translations: [OTH SPECIFIED POSTPROCEDURAL STATES] Onset: 3 Episodic Unclassified (6 sources) Asymptomatic microscopic hematuria 06-13-2022 Unclassified (3 sources) Body mass index 20-24 - normal 10-24-2022 Unclassified (3 sources) Non-smoker 10-24-2022 Unclassified (1 source) Acquired varus deformity of right knee Onset: 1 09-11-2023 Unclassified (1 source) Cancer cervix screening status 10-27-2023 Unclassified (2 sources) Patient encounter status 10-27-2023 Past or Other Problems Problem Classification Problem Date Documented Da te Episodic/Chronic Other screening for suspected conditions (not mental [...] HX MALIG NEOPLASM PROSTATE] Onset: 12-06-2021 Episodic Sprains and strains (1 source) Rupture of anterior cruciate ligament Onset: 02-19-2021 09-11-2023 Episodic Results Test Name Value Interpretation Reference Range Facil ity Reminderson 11-27-2023 Reminders Reminders From: Odalys Hermosillo To: EU - Recalls Torsten; Sent: 06/10/2023 09:51:08 EST Show up: 11/09/2023 10:51:00 EDT Subject: KUB and OSCAR Reminder Message Please Remember to:_have pt get KUB and OSCAR done prior to appt. Prefers [facility]. From: Marisa Barth (EU - Recalls Lue) To: Romi Sarmiento MD; Sent: 11/25/2023 12:44:47 EDT Show up: 11/25/2023 12:44:00 EDT Subject: RE: KUB and OSCAR Pt had CT a/p w/ con done 08/2023 please advise if OSCAR/KUB need done still From: Romi Sarmiento MD To: NURA - Giooneal Torsten; Sent: 11/27/2023 13:14:34 EDT Show up: 11/27/2023 13:14:00 EDT Subject: RE: KUB and OSCAR Just KUB (OSCAR if having pain) Thanks, KML Normal [facility] Family Medicine Office/Clini c Noteon 11-02-2023 Family Medicine Office/Clinic Note HPI Staff Elida is a 47 year old female presenting for well woman Woman check up: Last pap: 10/24/2022 Last Subha: November 2022 normal Results of lap pap: normal Where was it done: hx: # of pregnancies..1. abortions... live births..1. living children...1 menstrual cycle (normal,heavy,ect): History of STD: no Do you want tested for STD today: no Vaginal discharge, odor, itching: no Self breast exam at home? yes Hx of breast, cervical or uterine cancer in the family: no Pt is seeing spelicNovember 18 for the free floating clamp History of Present Illness pt presents today for well woman exam Review of Systems PHQ Score Initial Depression Screen Score: 0 SCORE Physical Exam Vitals & Measurements HR: 78(Peripheral) RR: 18 BP: 140/82 SpO2: 99% HT: 65 in HT: 165.0 cm WT: 65.5 kg WT: 144.1 lb BMI: 24.06 General: Well developed, well nourished, in no [...] masses. Pap obtained Neurologic: Grossly normal Skin: [place], moist, no tenting Lymph Nodes: No cervical adenopathy, nodes normal Mental Status: Alert and oriented x3. Normal mood and affect Assessment/Plan 1. Well woman exam (Z01.419: Encounter for gynecological examination (general) (routine) without abnormal findings) pt presents today for well woman exam. BSE discussed. mammogram order provided. pap obtained without difficulty. Has an appointment scheduled with Dr. Palomares for floating filshe clip, denies pain . RTC as needed Ordered: triamcinolone, 40 mg = 1 mL, Injection, IntraMuscular, Once, Stop date 10/27/23 9:44:00 EDT, Routine, Start date 10/27/23 9:44:00 EDT, 10/27/23 9:44:00 EDT PAP [id number] w/ HPV and Genotype rflx 2. Cervical cancer screening (Z12.4: Encounter for screening for malignant neoplasm of cervix) pap obtained without diffiuclty Ordered: triamcinolone, 40 mg = 1 mL, Injection, IntraMuscular, Once, Stop date 10/27/23 9:44:00 EDT, Routine, Start date 10/27/23 9:44:00 EDT, 10/27/23 9:44:00 EDT PAP [id number] w/ HPV and Genotype rflx 3. Breast cancer screening by mammogram (Z12.31: Encounter for screening mammogram for malignant neoplasm of breast) mammogram order provided 4. BMI 24.0-24.9, adult (Z68.24: Body mass index [BMI] 24.0-24.9, adult) BMI education complete Ordered: triamcinolone, 40 mg = 1 mL, Injection, IntraMuscular, Once, Stop date 10/27/23 9:44:00 EDT, Routine, Start date 10/27/23 9:44:00 EDT, 10/27/23 9:44:00 EDT PAP [id number] w/ HPV and Genotype rflx 5. Non-smoker (Z78.9: Other specified health status) continue not smoking Ordered: triamcinolone, 40 mg = 1 mL, Injection, IntraMuscular, Once, Stop date 10/27/23 9:44:00 EDT, Routine, Start date 10/27/23 9:44:00 EDT, 10/27/23 9:44:00 EDT PAP [id number] w/ HPV and Genotype rflx Follow-up No qualifying data available Problem List/Past Medical History Ongoing Abnormal menstruation Acquired varus deformity of right knee Arthritis Asymptomatic microscopic hematuria BMI 24.0-24.9, adult Breast cancer screening by mammogram Cervical cancer screening Foot-drop GERD (gastroesophageal reflux disease) Hypertension Kidney stones Non-smoker Osteoarthritis of knee Patellar maltracking Pelvic pain Rupture of anterior cruciate ligament Well woman exam Historical No qualifying data Procedure/Surgical History 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 Medications Bariatric Multivitamins with 45 mg Iron oral capsule, 1 cap(s), Oral, Daily calcium citrate Tab, 500 mg, Oral, BID omeprazole 40 mg Cap-DR, 40 mg= 1 cap(s), Oral, Daily, 3 refills Allergies No Known Medication Allergies Social History Alcohol - Denies Alcohol Use, 02/26/2022 Substance Abuse - Denies Substance Abuse, 02/26/2022 Tobacco - Denies Tobacco Use, 02/26/2022 Never (less than 100 in lifetime) Tobacco Use:. Never Smokeless Tobacco Use:. Household tobacco concerns: No., 10/27/2023 Family History Arthritis: Father. Hypertension: Father. Primary malignant neoplasm of prostate: Father. Immunizations Vaccine Date Status influenza virus vaccine, inactivated 03/17/2023 Recorded influenza virus vaccine, inactivated 03/06/2023 Recorded influenza virus vaccine, inactivated 04/28/2022 Recorded SARS-CoV-2 (COVID-19) [id number] 04/28/2022 (more content not included)... Normal [facility] Comment on above: Result Comment: Elec tronically Signed By: Radha Farley\.br\Date and Time Signed: 11/02/23 08:55 EDT PAP [id number] 10-31-2023 Cytology report Cyto stain Doc (Cvx/Vag) Note Invalid Interpretation Code [facility] Comment on above: Result Comment: TEST S RESULT FLAG UNITS REF RANGE LAB Clinician Provided Cytology Information Source.............Cervix No. of containers..01 ThinPrep Vial DIAGNOSIS: 01 NEGATIVE FOR INTRAEPITHELIAL LESION OR MALIGNANCY. Specimen adequacy: 01 Satisfactory for evaluation. Endocervical and/or squamous metaplastic cells (endocervical component) are present. Performed by: Rita Mcdaniel, Resident Services Supervisor ([facility]) . 01 Note: Note 02 The Pap smear is a screening test designed to aid in the detection of premalignant and malignant conditions of the uterine cervix. It is not a diagnostic procedure and should not be used as the sole means of detecting cervical cancer. Both false-positive and false-negative reports do occur. Test Methodology: Note 02 This liquid based ThinPrep(R) pap test was screened with the use of an image guided system. HPV Genotype Reflex Note 01 Criteria not met, HPV Genotype not performed. FLAG LEGEND: L-Low Normal,H-High Normal,LL-Alert Low,HH-Alert High <-Panic Low,>-Panic High,A-Abnormal,AA-Critical Abnormal Performed at: 01 [facility] [id number] [place] [id number] Alex Pascual MD, 02 WB [facility] [address] [id number] Catherine Pearson MD, Performed By: #### 1 [id number] #### [facility] [address] [place] [id number] HPV 16+18+31+33+35+39+ 45+51+52+56+58+59+ 66+68 DNA Probe+sig amp Ql (Cvx) Negative Invalid Interpretation Code Negative [facility] Comment on above: Result Comment: This nucleic acid amplification test detects fourteen high-risk HPV types (16,18,31,33,35,39,45,51,52,56,58,59,66,68) without differentiation. Performed at: [facility] [address] [place], [place] [id number] MD Ankur Johnson Performed at: =G [facility] [id number] MD Michel Alexander Performed By: #### 1 [id number] #### [facility] [address] [place] [address] PAP [id number] 10-27-2023 Gynecological Body Site CERVIX Normal [facility] Comment on above: Performed By: #### 1 [id number] #### [facility] [address] [place] [address] Physician Orderon 10-27-2023 Physician Order [id number] IFF Normal [facility] Family Medicine Office/Clini c Noteon 10-14-2023 Family Medicine Office/Clinic Note HPI Staff Elida is a 47 year female presenting for 1 month follow up GERI 09/11/23 pelvic pain, pelvic u/s ordered through [facility], started omeprazole Pt states intermittently will get sharp pain on LLQ lasting for a few seconds, since starting the omeprazole gas pain has completely gone away . pt states hasn't heard from OBGYN she did call last week and left a message and hasn't heard back from them. History of Present Illness pt presents today for follow up on acid reflux and pelvic pain Review of Systems PHQ Score Initial Depression Screen Score: 0 SCORE Physical Exam Vitals & Measurements HR: 80(Peripheral) RR: 18 BP: 122/82 SpO2: 98% HT: 65 in HT: 165.0 cm WT: 55.7 kg WT: 122.54 lb BMI: 20.46 General: alert, no acute distress ENMT: oral mucosa moist, no pharyngeal erythema or exudate Cardiovascular: regular rate and rhythm, normal peripheral perfusion Respiratory: Lungs CTA, respirations non labored Extremities: no deformity, no trauma Neurological: oriented x 4, LOC appropriate for age, CN II-XII intact, motor strength equal & normal bilaterally, speech normal Assessment/Plan 1. GERD (gastroesophageal reflux disease) (K21.9: Gastro-esophageal reflux disease without esophagitis) pt states reflux is so much better since starting omeprazole. 2. Pelvic pain (R10.2: Pelvic and perineal pain) still has occasional pelvic pain that losts only seconds. still waiting for OBGYN to contact her for appointment to follow up on migration of filshe clip. RTC for well woman exam 3. BMI 20.0-20.9, adult (Z68.20: Body mass index [BMI] 20.0-20.9, adult) BMI education complete 4. 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 Medications Bariatric Multivitamins with 45 mg Iron oral capsule, 1 cap(s), Oral, Daily calcium citrate Tab, 500 mg, Oral, BID omeprazole 40 mg Cap-DR, 40 mg= 1 cap(s), Oral, Daily, 3 refills Allergies No Known Medication Allergies Social History Alcohol - Denies Alcohol Use, 02/26/2022 Substance Abuse - Denies Substance Abuse, 02/26/2022 Tobacco - Denies Tobacco Use, 02/26/2022 Never (less than 100 in lifetime) Tobacco Use:. Never Smokeless Tobacco Use:. Household tobacco concerns: No., 10/14/2023 Family History Arthritis: Father. Hypertension: Father. Primary malignant neoplasm of prostate: Father. Immunizations Vaccine Date Status influenza virus vaccine, inactivated 03/17/2023 Recorded influenza virus vaccine, inactivated 03/06/2023 Recorded influenza virus vaccine, inactivated 04/28/2022 Recorded SARS-CoV-2 (COVID-19) [id number] 04/28/2022 Recorded SARS-CoV-2 (COVID-19) mRNA BNT-162b2 vax [...] influenza virus vaccine, inactivated 04/24/2013 Recorded Normal [facility] Comment on above: Result Comment: Elec tronically Signed By: Radha Farley\.br\Date and Time Signed: 10/14/23 16:50 EDT Physician Referralon 024 Physician Referral [id number] [facility] [id number] TIFF Normal [facility] RAD - Ultrasound Reporton RAD - Ultrasound Report [id number] IFF Normal [facility] Ambulatory Visit Summaryon 0 09-11-2023 Ambulatory Visit Summary ELIDA CALVILLO :1975 Visit Date:09/11/2023 Ambulatory Visit Instructions Your Diagnosis Pelvic pain Abnormal menstruation GERD (gastroesophageal reflux disease) BMI 23.0-23.9, adult Your Care Team Attending Physician - Radha Farley Primary Care Physician - Radha Farley This Is Your Medications List calcium citrate (calcium citrate Tab) multivitamin with minerals (Bariatric Multivitamins with 45 mg Iron oral capsule) omeprazole (omeprazole 40 mg Cap-DR) promethazine (promethazine 25 mg Tab) Procedures Performed 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 Discharge Vitals Heart Rate (Peripheral) 84 Blood Pressure 132/78 Height 165 cm Height 65 in Weight 64.8 kg Weight 142.56 lb BMI 23.8 What to do next Scheduled Follow-Up Appointments Thursday. 2023 4:40 PM EDT With: Radha Farley Where: [facility] Normal [address] [place] [address] [place] [address]- \.br\ Medications\.br\ What How Much When Why Instructions\.br \ New omeprazole (omeprazole 40 mg Cap-DR) 1 Capsules By Mouth Every day Pelvic pain Abnormal menstruation GERD (gastroesophagea l reflux disease) BMI 23.0-23.9, adult Refills: 3 Pickup at [facility] #[id number]\.br\ Unchanged calcium citrate (calcium citrate Tab) 500 Milligram By Mouth 2 times a day 2 tabs twice a day \.br\ Unchanged multivitamin with minerals (Bariatric Multivitamins with 45 mg Iron oral capsule) 1 Capsules By Mouth Every day\.br\ Unchanged promethazine (promethazine 25 mg Tab) 1 Tablets By Mouth Every 4 hours as needed for for nausea/vomiting Post knee surgery nausea/ vomiting \.br\ Pharmacy Information\.br\ [facility] #[id number]: [address] [place], [place] [phone] [phone]\.br\ Allergies\.br\ No Known Medication Allergies\.br\ Problems\.br\ Ongoing - Any problem that you are currently receiving treatment for.\.br\ Abnormal menstruation\.br \ Acquired varus deformity of right knee\.br\ Arthritis\.br\ Asymptomatic microscopic hematuria\.br\ BMI 24.0-24.9, adult\.br\ Foot-drop\.br\ GERD (gastroesophagea l reflux disease)\.br\ Hypertension\.br \ Kidney stones\.br\ Non-smoker\.br\ Osteoarthritis of knee\.br\ Patellar maltracking\.br\ Pelvic pain\.br\ Rupture of anterior cruciate ligament\.br\ Patient Survey\.br\ You may receive a survey via text or e-mail asking about your office visit. Please share your experience with us by completing your survey. We appreciate your feedback and thank you for choosing us for your care.\.br\ \.br\ [facility] Medicine Office/Clini c Noteon 09-11-2023 Family Medicine Office/Clinic Note Chief Complaint ED follow up HPI Staff Elida is a 47 year old female presenting for ER follow up ER followup: Hospital: [facility] Visit date: 09/02/23 Symptoms the patient presented with: abdominal pain Symptom onset/injury onset: 08/31/23 Testing Performed: CT ABD/Pelivs showed Colitis and 14mm stone left kidney New medications: Flagyl, cipro and levsin Current concerns: Patient concerned as when she looked at report from CT scan it says adnexa secondary to dislodgement of right clip on fallopian tube or a floating ovary. Patient reports having her period every 2 weeks for about [address] Sarmiento, urology History of Present Illness pt presents today for ER follow up. having abdominal pain, reflux, bloating and irregular menses Review of Systems PHQ Score Initial Depression Screen Score: 0 SCORE Physical Exam Vitals & Measurements HR: 84(Peripheral) BP: 132/78 SpO2: 98% HT: 65 in HT: 165 cm WT: 64.8 kg WT: 142.56 lb BMI: 23.8 General: alert, no acute distress ENMT: oral mucosa moist, no pharyngeal erythema or exudate Cardiovascular: regular rate and rhythm, normal peripheral perfusion Respiratory: Lungs CTA, respirations non labored Extremities: no deformity, no trauma Neurological: oriented x 4, LOC appropriate for age, CN II-XII intact, motor strength equal & normal bilaterally, speech normal Assessment/Plan 1. Pelvic pain (R10.2: Pelvic and perineal pain) pt having pelvic pain, went to ER CT of abdomen showed possible dislodgment of filshie clip or floating ovary. will order pelvic u/s at [facility]. RTC 4 weeks. may consider referral to Dr. Palomares if u/s is abnormal Ordered: omeprazole, 40 mg = 1 cap(s), Oral, Daily, # 90 cap(s), Refills(s) 3, Pharmacy: [facility] #[id number], 165, cm, 09/11/23 11:19:00 EDT, Height/Length Dosing, 64.8, kg, 09/11/23 11:19:00 EDT, Weight Dosing 2. Abnormal menstruation (N92.6: Irregular menstruation, unspecified) periods every 2 weeks Ordered: omeprazole, 40 mg = 1 cap(s), Oral, Daily, # 90 cap(s), Refills(s) 3, Pharmacy: [facility] #[id number], 165, cm, 09/11/23 11:19:00 EDT, Height/Length Dosing, 64.8, kg, 09/11/23 11:19:00 EDT, Weight Dosing 3. GERD (gastroesophageal reflux disease) (K21.9: Gastro-esophageal reflux disease without esophagitis) pt c/o severe epigastric pain that comes and goes. it gets so bad that it will wake her up at night. she used to take prilosec but stopped taking it. will send refills Ordered: omeprazole, 40 mg = 1 cap(s), Oral, Daily, # 90 cap(s), Refills(s) 3, Pharmacy: [facility] #[id number], 165, cm, 09/11/23 11:19:00 EDT, Height/Length Dosing, 64.8, kg, 09/11/23 11:19:00 EDT, Weight Dosing 4. BMI 23.0-23.9, adult (Z68.23: Body mass index [BMI] 23.0-23.9, adult) BMI education complete Ordered: omeprazole, 40 mg = 1 cap(s), Oral, Daily, # 90 cap(s), Refills(s) 3, Pharmacy: [facility] #[id number], 165, cm, 09/11/23 11:19:00 EDT, Height/Length Dosing, 64.8, kg, 09/11/23 11:19:00 EDT, Weight Dosing Follow-up No qualifying data available Problem List/Past Medical History Ongoing Abnormal menstruation Acquired varus deformity of right knee Arthritis Asymptomatic microscopic hematuria BMI 24.0-24.9, adult Foot-drop GERD (gastroesophageal reflux disease) Hypertension Kidney stones Non-smoker Osteoarthritis of knee Patellar maltracking Pelvic pain Rupture of anterior cruciate ligament Historical No qualifying data Procedure/Surgical History 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 Medications Bariatric Multivitamins with 45 mg Iron oral capsule, 1 cap(s), Oral, Daily calcium citrate Tab, 500 mg, Oral, BID omeprazole 40 mg Cap-DR, 40 mg= 1 cap(s), Oral, Daily, 3 refills promethazine 25 mg Tab, 25 mg= 1 tab(s), Oral, q4hr, PRN, Not taking Allergies No Known Medication Allergies Social History Alcohol - Denies Alcohol Use, 02/26/2022 Substance Abuse - Denies Substance Abuse, 02/26/2022 Tobacco - Denies Tobacco Use, 02/26/2022 Never (less than 100 in lifetime) Tobacco Use:. Never Smokeless Tobacco Use:. Household tobacco concerns: No., 06/10/2023 Family History Arthritis: Father. Hypertension: Father. Primary malignant neoplasm of prostate: Father. Immunizations Vaccine Date Status influenza virus vaccine, inactivated 03/17/2023 Recorded influenza virus vaccine, inactivated 03/06/2023 Recorded influenza virus vaccine, inactivated 04/28/2022 Recorded SARS-CoV-2 (COVID-19) [id number] 04/28/2022 Recorded SARS-CoV-2 (COVID-19) mRNA BNT-162b2 vax 05/21/2021 Recorded influenza virus vaccine, inactivated 03/08/2021 Recorded SARS-CoV-2 (COVID-19) mRNA BNT-162b2 vax 09/20/2020 Recorded SARS-CoV-2 (COVID-19) mRNA BNT-162b2 vax 08/30/2020 Recorded influenza virus vaccine, inactivated 02/08/2020 Recorded influenza virus vaccine, inacti (more content not included)... Normal [facility] Comment on above: Result Comment: Elec tronically Signed By: Radha Farley\.br\Date and Time Signed: 09/11/23 11:42 EDT Physician Orderon 09-11-2023 Physician Order [id number]#1.00T IFF Normal [facility] ED Note-Physicianon 09-03-19 ED Note-Physician [id number]#1.00T IFF Normal [facility] Lab Reportson 07-13-2023 Lab Reports [id number]#1.00T IFF [facility] Ambulatory Visit Summaryon 0 06-10-2023 Ambulatory Visit Summary ELIDA CALVILLO :1975 Visit Date:06/10/2023 Ambulatory Visit Instructions Your Diagnosis Ureteral stone Kidney stones Asymptomatic microscopic hematuria Tests Performed Urnls Dip Stick Auto w/o Microscopy POC 75172 US Renal -- Results Pending -- XR [...] Romi Sarmiento MD Where: [facility] Formson 06-10-2023 Forms [id number]#1.00TI [facility] Patient Educationon 06-10-19 Patient Education Nephrology Dietary Guidelines to Help [...] ? 8 oz (237 mL) of milk, hvamjmg-gglhnxlitjok-sm iry milk, and calcium-fortifiedfruit juice. Calcium-fortified means that [...] Spinach (cooked), rhubarb, beets, sweet potatoes, and Hong Konger chard. ? Peanuts. ? Potato chips, algerian fries, and baked potatoes with skin on. ? Nuts and nut products. ? Chocolate. ? If you regularly take a diuretic medicine, make sure to eat at least 1 or 2 servings of fruits or vegetables that are high in potassium each day. These include: ? Avocado. ? Banana. ? Randolph, prune, carrot, or tomato juice. ? Baked [...] fish oil, or vitamin B6. ? Take xmpv-rsk-pfibedt and prescription medicines only as told by your health care provider. These include supplements. What foods sh (more content not included)... Normal [facility] 06-10-2023 Screens [id number] FF Normal [facility] Urology Office/Clinic Noteon 06-10-2023 Urology Office/Clinic Note [...] hx - mother with stones. Presented to [facility] ER on 05/27/22- CT AP with IV/PO contrast: 5 mm right UPJ stone, 1 mm right UVJ stone, mild hydronephrosis and delayed nephrogram. 3 mm left UVJ stone without left hydronephrosis or ureter. Additional 2 to 3 mm nonobstructing renal calculi. [facility] 06/30/22 - personal review: mild R hydro improved, bilateral nonobstructing stones, largest measuring [address]. KUB neg CT AP w/o contrast 07/10/22 marked right hydroureteronephrosis and 6 x 5 x 4 mm distal ureteral stone. RLP 2 mm stone, LLP 3.5 mm stone S/p Cysto, Right ureteroscopy w/ laser litho, stone extraction, string stent placed. Stent removed at home without complications. OSCAR 08/30/22 - bilateral stones - tiny RLP stone, 3.5 mm left stone KUB 05/18/23 TB - 5mm stone in RLP. 1cm stone in LLP. Personal review: stones are overestimated in size, likely multiple small stones. OSCAR 05/18/23 [facility] - 1.4cm stone in L renal pelvis [...] Urnls Dip Stick Auto w/o Microscopy POC 39156 US Renal XR Abdomen 1 View 2. [...] exam and evaluation, counseling and educating the patient/family/caregive r, and ordering medications, tests, and procedures in caring for the patient (more content not included)... Normal [facility] Comment on above: Result Comment: Elec tronically Signed By: Romi Sarmiento MD\.br\Date and Time Signed: 06/10/23 14:46 EST\.br\Electronically Co-Signed By: Odalys Hermosillo\.br\Date and Time Co-Signed: 06/10/23 09:52 EST Reminderson 06-04-2023 Reminders - From: Tanesha Rowley To: EU - Recalloneal Sarmiento; Sent: 12/03/2022 13:42:54 EDT Show up: 05/01/2023 13:42:00 EST Subject: OSCAR/KUB Reminder/Recall To be done @ [facility] prior to her 06/10/[address] Sarmiento Called pt Left VM to return our call about imaging. Pt called and she will be calling [facility] to schedule OSCAR and have KUB done on same day Called pt and left VM to see when she is scheduled for OSCAR/KUB Pt called and she is having OSCAR & KUB done @ [facility] on 05/18/2023 OSCAR in pt chart for upcoming appointment. KUB in pt chart Normal [facility] RAD - MISCon 05-28-2023 RAD - MISC [id number] IFF Normal [facility] RAD - Ultrasound Reporton RAD - Ultrasound Report [id number]#1.00T IFF Normal [facility] Outside Mammographyon 2022 Outside Mammography [id number]#1.00C D:127 Normal [facility] Outside Mammography [id number] D:127 Normal [facility] 12-04-2022 Screens [id number] CD:127 Normal [facility] Ambulatory Visit Summaryon 0 12-03-2022 Ambulatory Visit Summary ELIDA CALVILLO :1975 Visit Date:12/03/2022 Ambulatory Visit Instructions Your Diagnosis Ureteral stone Kidney stones Asymptomatic microscopic hematuria Tests Performed Urnls Dip Stick Auto w/o Microscopy POC 67976 US Renal -- Results Pending -- XR Abdomen 1 View -- Results Pending -- Please visit your patient portal for your results or contact your primary care physician. Your Care Team Attending Physician - Torsten DIAMOND, Romi Sinclair Primary Care Physician - Felipa MANAGER ELIGIBILITY, Radha L This Is Your Medications List Contact prescribing [...] Follow-Up Appointments Thursday 8:45 AM EST With: Torsten DIAMOND, Romi Sinclair Where: [facility] Patient Educationon 12-04-19 Patient Education Nephrology Dietary [...] ? 8 oz (237 mL) of milk, yrvwqai-woftupskvyxw-iu iry milk, and calcium-fortifiedfruit juice. Calcium-fortified means that [...] Spinach (cooked), rhubarb, beets, sweet potatoes, and Hong Konger chard. ? Peanuts. ? Potato chips, algerian fries, and baked potatoes with skin on. ? Nuts and nut products. ? Chocolate. ? If you regularly take a diuretic medicine, make sure to eat at least 1 or 2 servings of fruits or vegetables that are high in potassium each day. These include: ? Avocado. ? Banana. ? Randolph, prune, carrot, or tomato juice. ? Baked [...] fish oil, or vitamin B6. ? Take picr-wcn-tzshtcz and prescription medicines only as told by your health care provider. These include supplements. What foods should I limit? Limit your in (more content not included)... Normal [facility] Urology Office/Clinic Noteon 12-03-2022 Urology Office/Clinic [...] and history for this patient from Dr. aSrmiento. I have reviewed and verified the staff [...] stone (N20.1: Calculus of ureter) Presented to [facility] ER on 05/27/22 for low abdominal pain and diarrhea. CT AP with IV/PO contrast 05/27/22 - 5 mm right UPJ stone, 1 mm right UVJ stone, mild hydronephrosis and delayed nephrogram. 3 mm left UVJ stone without left hydronephrosis or ureter. Additional 2 to 3 mm nonobstructing renal calculi present. OSCAR 06/06/22 at [facility] - Right kidney: Dilated renal pelvis and [...] medical e (more content not included)... Normal [facility] Comment on above: Result Comment: Elec tronically Signed By: Romi Sarmiento MD\.br\Date and Time Signed: 12/03/22 08:55 EDT\.br\Electronically Co-Signed By: Malathi Rivera\.br\Date and Time Co-Signed: 12/03/22 08:48 EDT PTH INTACTon 09-05-2022 PTH, Intact 16 pg/mL Normal 15-65 [facility] Comment on above: Performed By: #### E FLORENCIO ACEVEDORO #### [facility] [address] [place] [address] Dr. Sandra Castano URIC ACID SERUMon 09-04-2022 Urate [Mass/Vol] 4.4 mg/dL Normal 2.6-6.0 [facility] Comment on above: Performed By: #### L IPA, CMP #### [facility] [address] [place] [address] Dr. Sandra Castano US KIDNEYSon 08-31-2022 US KIDNEYS US KIDNEYS EXAM DATE: 08/30/2022 7:55 AM MDT COMPARISON: Ultrasound kidney is 06/30/2022, 06/06/2022; CT abdomen and pelvis 07/10/2022. INDICATION: Kidney stones. History of stone and stent removal. TECHNIQUE: Real-time ultrasound scanning of the kidneys and bladder was performed by the cork slabs sawyer. Science Technicians static images are submitted for review. FINDINGS: [...] MAISHA ESTRADA Date: 2022-08-31 13:15 Normal [facility] CALCULI, URINARYon 3 2,8 Dihydroxyadenine Normal [facility] Comment on above: Performed By: #### C ALCULI #### [facility] [address] [place] [address] Dr. Sandra Castano Ammonium Acid Urate Normal [facility] Comment on above: Performed By: #### C ALCULI #### [facility] [address] [place] [address] Dr. Sandra Castano Bilirubin Ql (U) Normal [facility] Comment on above: Performed By: #### C ALCULI #### [facility] [address] [address] [address] Sandra Castano Ca Oxalate Dihydrate 80 % Normal [facility] Comment on above: Performed By: #### C ALCULI #### [facility] [address] [address] [address] Sandra Castano CaHPO4 (Brushite) Normal [facility] Comment on above: Performed By: #### C ALCULI #### [facility] [address] [address] [address] Sandra Castano Calcium Bilirubinate Normal [facility] Comment on above: Performed By: #### C ALCULI #### [facility] [address] [address] [address] Sandra Castano Calcium Carbonate Normal [facility] Comment on above: Performed By: #### C ALCULI #### [facility] [address] [address] [address] Sandra Castano Calcium Oxalate Monohydrate 20 % [facility] Comment on above: Performed By: #### C ALCULI #### [facility] [address] [address] [address] Sandra Castano Calcium Palmitate Normal [facility] Comment on above: Performed By: #### C ALCULI #### [facility] [address] [address] [address] Sandra Castano Calcium Phosphate [facility] Comment on above: Performed By: #### C ALCULI #### [facility] [address] [address] [address] Sandra Castano Calcium Stearate [facility] Comment on above: Performed By: #### C ALCULI #### [facility] [address] [address] [address] Sandra Castano Carbonate Apatite Normal [facility] Comment on above: Performed By: #### C ALCULI #### [facility] [address] [address] [address] Sandra Castano Cellular Material [facility] Comment on above: Performed By: #### C ALCULI #### [facility] [address] [address] [address] Sandra Castano Cholesterol [facility] Comment on above: Performed By: #### C ALCULI #### [facility] [address] [address] [address] Sandra Paez (U) Hahn Normal [facility] Comment on above: Performed By: #### C ALCULI #### [facility] [address] [address] [address] Sandra Castano Comment [facility] Comment on above: Performed By: #### C ALCULI #### [facility] [address] [address] [address] Sandra Castano Comment Comment Normal [facility] Comment on above: Result Comment: Calc ulus received wet. Wet calculi must be dried before analysis, which delays reporting of results. Leaving calculi wet (such as water, saline, blood, urine) may lead to changes in composition. Performed By: #### C ALCULI #### [facility] [address] [address] [address] Sandra Castano Comment: Comment Normal [facility] Comment on above: Result Comment: Cindi lozano questions regarding Calculi Analysis [facility] at: [phone]. Performed By: #### C ALCULI #### [facility] [address] [address] [address] Sandra Castano Composition Comment [facility] Comment on above: Result Comment: Perc entage (Represents the % composition) Performed By: #### C ALCULI #### [facility] [address] [place] [address] Dr. Sandra Castano Cystine Normal [facility] Comment on above: Performed By: #### C ALCULI #### [facility] [address] [address] [address] Sandra Castano Disclaimer: Comment Normal [facility] Comment on above: Result Comment: This test was developed and its performance characteristics determined by [facility]. It has not been cleared or approved by the Food and Drug Administration. Performed By: #### C ALCULI #### [facility] [address] [address] [address] Sandra Castano Dried Blood Normal [facility] Comment on above: Performed By: #### C ALCULI #### [facility] [address] [address] [address] Sandra Castano Drug or Metabolite Normal [facility] Comment on above: Performed By: #### C ALCULI #### [facility] [address] [address] [address] Sandra Castano Hydroxyapatite [facility] Comment on above: Performed By: #### C ALCULI #### [facility] [address] [address] [address] Sandra Castano Mg NH4 PO4 (Struvite) [facility] Comment on above: Performed By: #### C ALCULI #### [facility] [address] [address] [address] Sandra Castano MgHPO4 (Newberyite) [facility] Comment on above: Performed By: #### C ALCULI #### [facility] [address] [address] [address] Sandra Castano Other component(s) Normal [facility] Comment on above: Performed By: #### C ALCULI #### [facility] [address] [address] [address] Sandra Castano PDF . Normal [facility] Comment on above: Performed By: #### C ALCULI #### [facility] [address] [place] [address] Dr. Sandra Castano Photo Comment [facility] Comment on above: Result Comment: Phot ograph will follow under a separate cover Performed By: #### C ALCULI #### [facility] [address] [place] [address] Dr. Sandra Castano Please note: Comment [facility] Comment on above: Result Comment: Calc chica report will follow via computer, mail or karate teacher delivery. Performed By: #### C ALCULI #### [facility] [address] [place] [address] Dr. Sandra Castano Size 2x1 [facility] Comment on above: Result Comment: Mult iple pieces received. Dimensions of the largest piece reported. Performed By: #### C ALCULI #### [facility] [address] [address] [address] Sandra Castano Sodium Acid Urate Normal [facility] Comment on above: Performed By: #### C ALCULI #### [facility] [address] [place] [address] Dr. Sandra Castano Source Comment [facility] Comment on above: Result Comment: Righ t Ureter Performed By: #### C ALCULI #### [facility] [address] [place] [address] Dr. Sandra Castano Triamterene Normal [facility] Comment on above: Performed By: #### C ALCULI #### [facility] [address] [place] [address] Dr. Sandra Castano Uric Acid [facility] Comment on above: Performed By: #### C ALCULI #### [facility] [address] [place] [address] Dr. Sandra Castano Uric Acid Dihydrate Normal [facility] Comment on above: Performed By: #### C ALCULI #### [facility] [address] [place] [address] Dr. Sandra Castano Weight 9 mg [facility] Comment on above: Performed By: #### C ALCULI #### [facility] [address] [place] [address] Dr. Sandra Castano Xanthine [facility] Comment on above: Performed By: #### C ALCULI #### [facility] [address] [place] [address] Dr. Sandra Castano PREG HCG QUALon 07-30-2022 , QUAL Negative Normal NEGATIVE [facility] Comment on above: Performed By: #### C ALCULI #### [facility] [address] [place] [address] Dr. Sandra Castano PROF CHEM 8 (BAS METB)on Anion gap [Moles/Vol] 12.7 mmol/L [facility] Comment on above: Performed By: #### C ALCULI #### [facility] [address] [place] [address] Dr. Sandra Castano Calcium [Mass/Vol] 9.6 mg/dL Normal 8.5-10.1 [facility] Comment on above: Performed By: #### C ALCULI #### [facility] [address] [place] [address] Dr. Sandra Castano Chloride [Moles/Vol] 101 mmol/L Normal 98-107 [facility] Comment on above: Performed By: #### C ALCULI #### [facility] [address] [place] [address] Dr. Sandra Castano CO2 [Moles/Vol] 30.4 mmol/L Normal 21.0-32.0 [facility] Comment on above: Performed By: #### C ALCULI #### [facility] [address] [place] [address] Dr. Sandra Castano Creatinine [Mass/Vol] 0.65 mg/dL Normal 0.55-1.02 [facility] Comment on above: Performed By: #### C ALCULI #### [facility] [address] [address] [address] Sandra Castano EGFR-AF SOLOM[place] ISLANDER >60 Normal >=60 [facility] Comment on above: Performed By: #### C ALCULI #### [facility] [address] [place] [address] Dr. Sandra Castano EGFR-NON AF [place] ISLANDER >60 Normal >=60 [facility] Comment on above: Performed By: #### C ALCULI #### [facility] [address] [place] [address] Dr. Sandra Castano Glucose [Mass/Vol] 121 mg/dL Critically high 74-106 [facility] Comment on above: Performed By: #### C ALCULI #### [facility] [address] [place] [address] Dr. Sandra Castano Potassium [Moles/Vol] 4.1 mmol/L Normal 3.5-5.1 [facility] Comment on above: Performed By: #### C ALCULI #### [facility] [address] [place] [address] Dr. Sandra Castano Sodium [Moles/Vol] 140 mmol/L Normal 136-145 [facility] Comment on above: Performed By: #### C ALCULI #### [facility] [address] [place] [address] Dr. Sandra Castano Urea nitrogen [Mass/Vol] 17.0 mg/dL Normal 7.0-18.0 [facility] Comment on above: Performed By: #### C ALCULI #### [facility] [address] [place] [address] Dr. Sandra Castano Urea nitrogen/Creatinin e [Mass ratio] 26.2 mg/mg Normal [facility] Comment on above: Performed By: #### C ALCULI #### [facility] [address] [place] [address] Dr. Sandra Castano PROTIMEon 07-18-2022 INR Coag (PPP) [Relative time] 0.97 {INR} Normal [facility] Comment on above: Performed By: #### L IPA, CMP #### [facility] [address] [place] [address] Dr. Sandra Castano INR GUIDELINES SEE BELOW Normal [facility] Comment on above: Result Comment: DUNIA RED INR: 2.0 - 3.0 CONDITIONS NOT LISTED BELOW 2.5 - 3.5 FOR PROSTHETIC HEART VALVE REPLACEMENT 2.5 - 3.5 RECURRENT THROMBOSIS Performed By: #### L IPA, CMP #### [facility] [address] [place] [address] Dr. Sandra Castano PT Coag (PPP) [Time] 10.3 s Normal 9.0-11.6 [facility] Comment on above: Performed By: #### L IPA, CMP #### [facility] [address] [place] [address] Dr. Sandra Castano PTTon 07-18-2022 aPTT Coag (Bld) [Time] 29.1 s Normal 22.3-36.2 [facility] Comment on above: Performed By: #### L IPA, CMP #### [facility] [address] [place] [address] ABD/PELVIS WO CONon [...] by: ETTA CEDEÑO Date: 2022-07-10 13:31 Normal [facility] US KIDNEYSon 06-30-2022 US KIDNEYS [facility] Kidney [facility] , hematuria COMPARISON: Ultrasound [...] CEDEÑO Date: 2022-06-30 16:31 Normal [facility] XR KUB 1 VIEWon 06-30-2022 XR [...] CEDEÑO Date: 2022-06-30 17:20 Normal [facility] US KIDNEYSon 06-06-2022 US [facility]YS [facility] COMPARISON: CT abdomen pelvis [...] CEDEÑO Date: 2022-06-06 12:32 Normal [facility] XR KUB 1 VIEWon 06-06-2022 XR [...] CEDEÑO Date: 2022-06-06 12:36 Normal [facility] CT ABD/PELV W CONon 05-28-20 22 [...] MEGHA RESENDIZ Date: 2022-05-27 23:14 Normal [facility] CBC AUTO DIFFon 05-27-2022 BASO # 0.0 103/ul Normal 0.0-0.1 [facility] Comment on above: Performed By: #### C ALCULI #### [facility] [address] [address] [address] Sandra Castano Basophils/100 WBC (Bld) 0.4 % Normal 0.2-2.0 [facility] Comment on above: Performed By: #### C ALCULI #### [facility] [address] [address] [address] Sandra Castano EO # 0.0 103/ul Normal 0.0-0.7 [facility] Comment on above: Performed By: #### C ALCULI #### [facility] [address] [address] [address] Sandra Castano Eosinophils/100 WBC (Bld) 0.1 % Critically low 0.9-7.0 [facility] Comment on above: Performed By: #### C ALCULI #### [facility] [address] [address] [address] Sandra Castano Erythrocyte distribution width (RBC) [Ratio] 13.0 % Normal 11.0-15.0 [facility] Comment on above: Performed By: #### C ALCULI #### [facility] [address] [address] [address] Sandra Castano Hematocrit (Bld) [Volume fraction] 37.1 % Normal 36.0-48.0 [facility] Comment on above: Performed By: #### C ALCULI #### [facility] [address] [address] [address] Sandra Castano Hemoglobin (Bld) [Mass/Vol] 12.1 g/dL Normal 12.0-16.0 [facility] Comment on above: Performed By: #### C ALCULI #### [facility] [address] [place] [address] Dr. Sandra Castano IG # 0.05 10e3/ul Critically high 0.00-0.[address] [facility] Comment on above: Performed By: #### C ALCULI #### [facility] [address] [place] [address] Dr. Sandra Castano IG % 0.6 % Critically high 0.0-0.5 [facility] Comment on above: Performed By: #### C ALCULI #### [facility] [address] [place] [address] Dr. Sandra Castano LYMPH # 1.0 103/ul Critically low 1.2-3.8 [facility] Comment on above: Performed By: #### C ALCULI #### [facility] [address] [place] [address] Dr. Sandra Castano Lymphocytes/100 WBC (Bld) 11.7 % Critically low 20.5-60.0 [facility] Comment on above: Performed By: #### C ALCULI #### [facility] [address] [place] [address] Dr. Sandra Castano MANUAL DIFF REQ NO Normal [facility] Comment on above: Performed By: #### C ALCULI #### [facility] [address] [place] [address] Dr. Sandra Castano MCH (RBC) [Entitic mass] 28.8 pg Normal 26.7-34.0 [facility] Comment on above: Performed By: #### C ALCULI #### [facility] [address] [place] [address] Dr. Sandra Castano MCHC (RBC) [Mass/Vol] 32.6 g/dL Normal 29.9-35.2 [facility] Comment on above: Performed By: #### C ALCULI #### [facility] [address] [place] [address] Dr. Sandra Castano MCV (RBC) [Entitic vol] 88.3 fL Normal 81.0-99.0 [facility] Comment on above: Performed By: #### C ALCULI #### [facility] [address] [place] [address] Dr. Sandra Castano MONO # 0.4 103/ul Normal 0.3-0.8 [facility] Comment on above: Performed By: #### C ALCULI #### [facility] [address] [place] [address] Dr. Sandra Castano Monocytes/100 WBC (Bld) 4.2 % Normal 1.7-12.0 [facility] Comment on above: Performed By: #### C ALCULI #### [facility] [address] [place] [address] Dr. Sandra Castano NEUT # 6.8 103/ul Critically high 1.4-6.5 [facility] Comment on above: Performed By: #### C ALCULI #### [facility] [address] [place] [address] Dr. Sandra Castano Neutrophils/100 WBC (Bld) 83.0 % Critically high 43.0-75.0 [facility] Comment on above: Performed By: #### C ALCULI #### [facility] [address] [place] [address] Dr. Sandra Castano Platelet mean volume (Bld) [Entitic vol] 11.1 fL Normal 9.5-13.5 [facility] Comment on above: Performed By: #### C ALCULI #### [facility] [address] [place] [address] Dr. Sandra Castano PLT 312 103/ul Normal 150-450 [facility] Comment on above: Performed By: #### C ALCULI #### [facility] [address] [place] [address] Dr. Sandra Castano RBC 4.20 106/ul Normal 4.20-5.40 [facility] Comment on above: Performed By: #### C ALCULI #### [facility] [address] [place] [address] Dr. Sandra Castano WBC 8.2 103/ul Normal 4.0-11.0 [facility] Comment on above: Performed By: #### C ALCULI #### [facility] [address] [address] [address] Sandra Castano CULTURE URINEon 05-27-2022 CULTURE URINE Culture Observations : LIGHT GROWTH OF MIXED GENITAL NITISH. NO POTENTIAL PATHOGENS SEEN. Normal [facility] Comment on above: Performed By: #### L IPA, CMP #### [facility] [address] [address] [address] Sandra Castano ER URINE PROFILEon Bilirubin Ql (U) Negative Normal NEGATIVE [facility] Comment on above: Performed By: #### E RUR, UMICRO #### [facility] [address] [address] [address] Sandra Castano Clarity (U) CLEAR Normal CLEAR [facility] Comment on above: Performed By: #### E RUR, UMICRO #### [facility] [address] [place] [address] Dr. Sandra Castano Color (U) YELLOW Normal YELLOW [facility] Comment on above: Performed By: #### E RUR, UMICRO #### [facility] [address] [place] [address] Dr. Sandra Castano ERUAHLadan A micrscopic examination will be performed if indicated. Normal [facility] Comment on above: Performed By: #### E RUR, UMICRO #### [facility] [address] [place] [address] Dr. Sandra Castano Glucose Ql (U) Negative Normal NEGATIVE [facility] Comment on above: Performed By: #### E RUR, UMICRO #### [facility] [address] [address] [address] Sandra Castano Hemoglobin Ql (U) Negative Normal NEGATIVE [facility] Comment on above: Performed By: #### E RUR, UMICRO #### [facility] [address] [place] [address] Dr. Sandra Castano Ketones Ql (U) 40 mg/dl Abnormal NEGATIVE [facility] Comment on above: Performed By: #### E RUR, UMICRO #### [facility] [address] [place] [address] Dr. Sandra Castano LEUKOCYTES Negative Normal NEGATIVE [facility] Comment on above: Performed By: #### TAWANDA DUBOIS #### [facility] [address] [place] [address] Dr. Sandra Castano Nitrite Ql (U) Negative Normal NEGATIVE [facility] Comment on above: Performed By: #### FLORENCIO DUBOISRO #### [facility] [address] [place] [address] Dr. Sandra Castano pH (U) 5.0 [pH] Normal 5-9 [facility] Comment on above: Performed By: #### TAWANDA DUBOIS #### [facility] [address] [place] [address] Dr. Sandra Castano Protein (U) [Mass/Vol] 30 mg/dL Abnormal NEGATIVE/ TRACE [facility] Comment on above: Performed By: #### TAWANDA DUBOIS #### [facility] [address] [place] [address] Dr. Sandra Castano SPEC GRAVITY >=1.030 Abnormal 1.005-<=1.025 [facility] Comment on above: Performed By: #### TAWANDA DUBOIS #### [facility] [address] [place] [address] Dr. Sandra Castano UR MICRO IND INDICATED Normal [facility] Comment on above: Performed By: #### FLORENCIO DUBOISRO #### [facility] [address] [place] [address] Dr. Sandra Castano Urobilinogen Qn (U) 0.2 {Tee'U}/dL Normal 0.2 - 1.0 [facility] Comment on above: Performed By: #### FLORENCIO DUBOISRO #### [facility] [address] [place] [address] Dr. Sandra Castano LIPASEon 05-27-2022 Lipase [Catalytic activity/Vol] 88.0 U/L Normal 73.0-393.0 [facility] Comment on above: Performed By: #### L IPA, CMP #### [facility] [address] [address] [address] Sandra Castano URon 05-27-2022 , QUAL Negative Normal NEGATIVE [facility] Comment on above: Performed By: #### P REGU #### [facility] [address] [address] [address] Sandra Castano PROF 14(COMP METB)on 022 Albumin [Mass/Vol] 4.0 g/dL Normal 3.4-5.0 [facility] Comment on above: Performed By: #### L IPA, CMP #### [facility] [address] [address] [address] Sandra Castano Albumin/Globulin [Mass ratio] 1.0 {ratio} Normal [facility] Comment on above: Performed By: #### L IPA, CMP #### [facility] [address] [place] [address] Dr. Sandra Castano ALP [Catalytic activity/Vol] 106 U/L Normal 46-116 [facility] Comment on above: Performed By: #### L IPA, CMP #### [facility] [address] [address] [address] Sandra Castano ALT [Catalytic activity/Vol] 24 U/L Normal 14-59 [facility] Comment on above: Performed By: #### L IPA, CMP #### [facility] [address] [address] [address] Sandra Castano Anion gap [Moles/Vol] 15.2 mmol/L Normal [facility] Comment on above: Performed By: #### L IPA, CMP #### [facility] [address] [address] [address] Sandra Castano AST [Catalytic activity/Vol] 21 U/L Normal 15-37 [facility] Comment on above: Performed By: #### L IPA, CMP #### [facility] [address] [address] [address] Sandra Castano Bilirubin [Mass/Vol] 0.4 mg/dL Normal 0.2-1.0 [facility] Comment on above: Performed By: #### L IPA, CMP #### [facility] [address] [address] [address] Sandra Castano Calcium [Mass/Vol] 9.6 mg/dL Normal 8.5-10.1 [facility] Comment on above: Performed By: #### L IPA, CMP #### [facility] [address] [address] [address] Sandra Castano Chloride [Moles/Vol] 99 mmol/L Normal 98-107 [facility] Comment on above: Performed By: #### L IPA, CMP #### [facility] [address] [address] [address] Sandra Castano CO2 [Moles/Vol] 25.2 mmol/L Normal 21.0-32.0 [facility] Comment on above: Performed By: #### L IPA, CMP #### [facility] [address] [place] [address] Dr. Sandra Castano Creatinine [Mass/Vol] 0.90 mg/dL Normal 0.55-1.02 [facility] Comment on above: Performed By: #### L IPA, CMP #### [facility] [address] [place] [address] Dr. Sandra Castano EGFR-AF [place]LANDER >60 Normal >=60 [facility] Comment on above: Performed By: #### L IPA, CMP #### [facility] [address] [place] [address] Dr. Sandra Castano EGFR-NON AF [place]ER >60 Normal >=60 [facility] Comment on above: Performed By: #### L IPA, CMP #### [facility] [address] [address] [address] Sandra Castano Globulin (S) [Mass/Vol] 4.2 g/dL Normal [facility] Comment on above: Performed By: #### L IPA, CMP #### [facility] [address] [address] [address] Sandra Castano Glucose [Mass/Vol] 171 mg/dL Critically high 74-106 [facility] Comment on above: Performed By: #### L IPA, CMP #### [facility] [address] [address] [address] Sandra Castano Potassium [Moles/Vol] 3.4 mmol/L Critically low 3.5-5.1 [facility] Comment on above: Performed By: #### L IPA, CMP #### [facility] [address] [address] [address] Sandra Castano Protein [Mass/Vol] 8.2 g/dL Normal 6.4-8.2 [facility] Comment on above: Performed By: #### L IPA, CMP #### [facility] [address] [place] [address] Dr. Sandra Castano Sodium [Moles/Vol] 136 mmol/L Normal 136-145 [facility] Comment on above: Performed By: #### L IPA, CMP #### [facility] [address] [place] [address] Dr. Sandra Castano Urea nitrogen [Mass/Vol] 14.0 mg/dL Normal 7.0-18.0 [facility] Comment on above: Performed By: #### L IPA, CMP #### [facility] [address] [place] [address] Dr. Sandra Castano Urea nitrogen/Creatinin e [Mass ratio] 15.6 mg/mg Normal [facility] Comment on above: Performed By: #### L IPA, CMP #### [facility] [address] [place] [address] Dr. Sandra Castano URINE MICROSCOPIC ONLYon BACTERIA MODERATE Abnormal NONE SEEN [facility] Comment on above: Performed By: #### E ADINR, UMICRO #### [facility] [address] [place] [address] Dr. Sandra Castano Bacteria identified Cx Nom (U) INDICATED Normal [facility] Comment on above: Performed By: #### E RUR, UMICRO #### [facility] [address] [place] [address] Dr. Sandra Castano CAST NONE SEEN Normal NONE SEEN [facility] Comment on above: Performed By: #### E RUR, UMICRO #### [facility] [address] [place] [address] Dr. Sandra Castano Crystals LM Nom (Urine sed) NONE SEEN Normal NONE SEEN [facility] Comment on above: Performed By: #### Gillian ACEVEDO UMICRO #### [facility] [address] [place] [address] Dr. Sandra Castano Epithelial cells LM Ql (Urine sed) RARE Normal NONE SEEN /RARE [facility] Comment on above: Performed By: #### Gillian ACEVEDO UMICRO #### [facility] [address] [place] [address] Dr. Sandra Castano MUCOUS TRACE Abnormal NONE SEEN [facility] Comment on above: Performed By: #### E CURTIS UMICRO #### [facility] [address] [place] [address] Dr. Sandra Castano RBC 2-5 Abnormal 0-2 [facility] Comment on above: Performed By: #### Gillian ACEVEDO UMICRO #### [facility] [address] [place] [address] Dr. Sandra Castano WBC 2-5 Abnormal NONE SEEN [facility] Comment on above: Performed By: #### Gillian ACEVEDO UMICRO #### [facility] [address] [place] [address] Dr. Sandra Castano YEAST PRESENT Abnormal NONE SEEN [facility] Comment on above: Performed By: #### Gillian ACEVEDO UMICRO #### [facility] [address] [place] [address] Dr. Sandra Castano XR ABD FLAT UP_PA [...] the chest and abdomen. Electronically authenticated by: RITA TAYLOR Date: 2022-05-27 21:17 Normal [facility] VITAMIN B1 (THIAMINE)on 05-01 Vit. B1, Whole Blood 168.7 nmol/L Normal 66.5-200.0 [facility] Comment on above: Performed By: #### C ALCULI #### [facility] [address] [place] [address] Dr. Sandra Castano CBC AUTO DIFFon 05-07-2022 BASO # 0.1 103/ul Normal 0.0-0.1 [facility] Comment on above: Performed By: #### L IPA, CMP #### [facility] [address] [place] [address] Dr. Sandra Castano Basophils/100 WBC (Bld) 0.5 % Normal 0.2-2.0 [facility] Comment on above: Performed By: #### L IPA, CMP #### [facility] [address] [place] [address] Dr. Sandra Castano EO # 0.1 103/ul Normal 0.0-0.7 [facility] Comment on above: Performed By: #### L IPA, CMP #### [facility] [address] [place] [address] Dr. Sandra Castano Eosinophils/100 WBC (Bld) 1.3 % Normal 0.9-7.0 [facility] Comment on above: Performed By: #### L IPA, CMP #### [facility] [address] [place] [address] Dr. Sandra Castano Erythrocyte distribution width (RBC) [Ratio] 12.8 % Normal 11.0-15.0 [facility] Comment on above: Performed By: #### L IPA, CMP #### [facility] [address] [place] [address] Dr. Sandra Castano Hematocrit (Bld) [Volume fraction] 37.5 % Normal 36.0-48.0 [facility] Comment on above: Performed By: #### L IPA, CMP #### [facility] [address] [place] [address] Dr. Sandra Castano Hemoglobin (Bld) [Mass/Vol] 12.1 g/dL Normal 12.0-16.0 [facility] Comment on above: Performed By: #### L IPA, CMP #### [facility] [address] [place] [address] Dr. Sandra Castano IG # 0.03 10e3/ul Normal 0.00-0.03 [facility] Comment on above: Performed By: #### L IPA, CMP #### [facility] [address] [place] [address] Dr. Sandra Castano IG % 0.3 % Normal 0.0-0.5 [facility] Comment on above: Performed By: #### L IPA, CMP #### [facility] [address] [place] [address] Dr. Sandra Castano LYMPH # 2.6 103/ul Normal 1.2-3.8 [facility] Comment on above: Performed By: #### L IPA, CMP #### [facility] [address] [place] [address] Dr. Sandra Castano Lymphocytes/100 WBC (Bld) 28.8 % Normal 20.5-60.0 [facility] Comment on above: Performed By: #### L IPA, CMP #### [facility] [address] [place] [address] Dr. Sandra Castano MANUAL DIFF REQ NO Normal [facility] Comment on above: Performed By: #### L IPA, CMP #### [facility] [address] [place] [address] Dr. Sandra Castano MCH (RBC) [Entitic mass] 29.2 pg Normal 26.7-34.0 [facility] Comment on above: Performed By: #### L IPA, CMP #### [facility] [address] [place] [address] Dr. Sandra Castano MCHC (RBC) [Mass/Vol] 32.3 g/dL Normal 29.9-35.2 [facility] Comment on above: Performed By: #### L IPA, CMP #### [facility] [address] [address] [address] Sandra Castano MCV (RBC) [Entitic vol] 90.4 fL Normal 81.0-99.0 [facility] Comment on above: Performed By: #### L IPA, CMP #### [facility] [address] [address] [address] Sandra Castano MONO # 0.5 103/ul Normal 0.3-0.8 [facility] Comment on above: Performed By: #### L IPA, CMP #### [facility] [address] [address] [address] Sandra Castano Monocytes/100 WBC (Bld) 5.4 % Normal 1.7-12.0 [facility] Comment on above: Performed By: #### L IPA, CMP #### [facility] [address] [place] [address] Dr. Sandra Castano NEUT # 5.8 103/ul Normal 1.4-6.5 [facility] Comment on above: Performed By: #### L IPA, CMP #### [facility] [facility] [address] [place] [address] Dr. Sandra Castano Neutrophils/100 WBC (Bld) 63.7 % Normal 43.0-75.0 [facility] Comment on above: Performed By: #### L IPA, CMP #### [facility] [address] [place] [address] Dr. Sandra Castano Platelet mean volume (Bld) [Entitic vol] 11.0 fL Normal 9.5-13.5 [facility] Comment on above: Performed By: #### L IPA, CMP #### [facility] [address] [address] [address] Sandra Castano PLT 370 103/ul Normal 150-450 [facility] Comment on above: Performed By: #### L IPA, CMP #### [facility] [address] [address] [address] Sandra Castano RBC 4.15 106/ul Critically low 4.20-5.40 [facility] Comment on above: Performed By: #### L IPA, CMP #### [facility] [address] [place] [address] Dr. Sandra Castano WBC 9.1 103/ul Normal 4.0-11.0 [facility] Comment on above: Performed By: #### L IPA, CMP #### [facility] [address] [place] [address] Dr. Sandra Castano FERRITINon 05-07-2022 Ferritin [Mass/Vol] 180.0 ng/mL Critically high 6.2-137.0 [facility] Comment on above: Performed By: #### L IPA, CMP #### [facility] [address] [place] [address] Dr. Sandra Castano IRON AND TIBCon 05-07-2022 % SATURATION 19.4 % Normal [facility] Comment on above: Performed By: #### L IPA, CMP #### [facility] [address] [place] [address] Dr. Sandra Castano Iron [Mass/Vol] 43.0 ug/dL Critically low 50.0-170.0 [facility] Comment on above: Performed By: #### L IPA, CMP #### [facility] [address] [place] [address] Dr. Sandra Castano TIBC DIRECT 222.0 ug/dL Critically low 250.0-450.[address] [facility] Comment on above: Performed By: #### L IPA, CMP #### [facility] [address] [place] [address] Dr. Sandra Castano MAGNESIUMon 05-07-2022 Magnesium [Mass/Vol] 1.8 mg/dL Normal 1.8-2.4 [facility] Comment on above: Performed By: #### M G CMP, PHOS #### [facility] [address] [place] [address] Dr. Sandra Castano PHOSPHORUSon 05-07-2022 Phosphate [Mass/Vol] 4.4 mg/dL Normal 2.6-4.7 [facility] Comment on above: Performed By: #### M G, CMP, PHOS #### [facility] [address] [address] [address] Sandra Castano PROF 14(COMP METB)on 022 Albumin [Mass/Vol] 3.6 g/dL Normal 3.4-5.0 [facility] Comment on above: Performed By: #### M G, CMP, PHOS #### [facility] [address] [address] [address] Sandra Castano Albumin/Globulin [Mass ratio] 0.9 {ratio} Normal [facility] Comment on above: Performed By: #### M G, CMP, PHOS #### [facility] [address] [address] [address] Sandra Castano ALP [Catalytic activity/Vol] 106 U/L Normal 46-116 [facility] Comment on above: Performed By: #### M G, CMP, PHOS #### [facility] [address] [address] [address] Sandra Castano ALT [Catalytic activity/Vol] 61 U/L Critically high 14-59 [facility] Comment on above: Performed By: #### M G, CMP, PHOS #### [facility] [address] [address] [address] Sandra Castano Anion gap [Moles/Vol] 12.2 mmol/L Normal [facility] Comment on above: Performed By: #### M G, CMP, PHOS #### [facility] [address] [address] [address] Sandra Castano AST [Catalytic activity/Vol] 35 U/L Normal 15-37 [facility] Comment on above: Performed By: #### M G, CMP, PHOS #### [facility] [address] [address] [address] Sandra Castano Bilirubin [Mass/Vol] 0.5 mg/dL Normal 0.2-1.0 [facility] Comment on above: Performed By: #### M G, CMP, PHOS #### [facility] [address] [address] [address] Sandra Castano Calcium [Mass/Vol] 9.7 mg/dL Normal 8.5-10.1 [facility] Comment on above: Performed By: #### M G, CMP, PHOS #### [facility] [address] [address] [address] Sandra Castano Chloride [Moles/Vol] 101 mmol/L Normal 98-107 [facility] Comment on above: Performed By: #### M G, CMP, PHOS #### [facility] [address] [address] [address] Sandra Castano CO2 [Moles/Vol] 30.9 mmol/L Normal 21.0-32.0 [facility] Comment on above: Performed By: #### M G, CMP, PHOS #### [facility] [address] [place] [address] Dr. Sandra Castano Creatinine [Mass/Vol] 0.74 mg/dL Normal 0.55-1.02 [facility] Comment on above: Performed By: #### M G, CMP, PHOS #### [facility] [address] [place] [address] Dr. Sandra Castano EGFR-AF [place] ISLANDER >60 Normal >=60 [facility] Comment on above: Performed By: #### M G, CMP, PHOS #### [facility] [address] [place] [address] Dr. Sandra Castano EGFR-NON AF [place]LANDER >60 Normal >=60 [facility] Comment on above: Performed By: #### M G, CMP, PHOS #### [facility] [address] [address] [address] Sandra Castano Globulin (S) [Mass/Vol] 3.9 g/dL Normal [facility] Comment on above: Performed By: #### M G, CMP, PHOS #### [facility] [address] [place] [address] Dr. Sandra Castano Glucose [Mass/Vol] 98 mg/dL Normal 74-106 [facility] Comment on above: Performed By: #### M G, CMP, PHOS #### [facility] [address] [place] [address] Dr. Sandra Castano Potassium [Moles/Vol] 4.1 mmol/L Normal 3.5-5.1 [facility] Comment on above: Performed By: #### M Selin CMP, PHOS #### [facility] [address] [place] [address] Dr. Sandra Castano Protein [Mass/Vol] 7.5 g/dL Normal 6.4-8.2 [facility] Comment on above: Performed By: #### M G CMP, PHOS #### [facility] [address] [address] [address] Sandra Castano Sodium [Moles/Vol] 140 mmol/L Normal 136-145 [facility] Comment on above: Performed By: #### M Selin CMP, PHOS #### [facility] [address] [place] [address] Dr. Sandra Castano Urea nitrogen [Mass/Vol] 7.0 mg/dL Normal 7.0-18.0 [facility] Comment on above: Performed By: #### Jorge Smallwood CMP, PHOS #### [facility] [address] [place] [address] Dr. Sandra Castano Urea nitrogen/Creatinin e [Mass ratio] 9.5 mg/mg Normal [facility] Comment on above: Performed By: #### M CINDY Smallwood, PHOS #### [facility] [address] [place] [address] Dr. Sandra Castano VIT B12 AND FOLATEon 022 Cobalamin (Vitamin B12) [Mass/Vol] 1075.0 pg/mL Critically high 193.0-986.0 [facility] Comment on above: Performed By: #### L IPA, CMP #### [facility] [address] [place] [address] Dr. Sandra Castano FOLATE 9.80 ng/mL Normal 8.60-58.90 [facility] Comment on above: Performed By: #### L IPA, CMP #### [facility] [address] [place] [address] Dr. Sandra Castano VITAMIN D 25 OHon 05-07-2022 VIT D 25-OH 96.8 ng/mL Normal [facility] Comment on above: Performed By: #### L IPA, CMP #### [facility] [address] [address] [address] Sandra Castano VIT D RANGES SEE BELOW Normal [facility] Comment on above: Result Comment: <20 ng/mL Vit D deficient 20 - <30 ng/mL Vit D insufficient 30 - 100 ng/mL Vit D sufficient >100 ng/mL Potential Toxicity Performed By: #### L IPA, CMP #### [facility] [address] [address] [address] Sandra Castano BLOOD BANKOrdered By: Latrice Lopez on 03-24-2022 ABO/Rh Interp AB NEG Invalid Interpretation Code [facility] BB Subsection ABSC Gel Interp Negative (03/24/22 8:33 AM) Normal [facility] BB Subsection VITAMIN B1 (THIAMINE)on 12-30 Vit. B1, Whole Blood 154.0 nmol/L Normal 66.5-200.0 [facility] Comment on above: Performed By: #### V ITB1T #### [facility] [address] [address] [address] Sandra Castano VIT D 25-OH [employer]on 2021 Vitamin D, 25-Hydroxy 98.0 ng/mL Normal 30.0-100.0 [facility] Comment on above: Result Comment: Wanda min D deficiency has been defined by the [place] of Medicine and an Endocrine Society practice guideline as a level of serum 25-OH vitamin D less than 20 ng/mL (1,2). The Endocrine Society went on to further define vitamin D insufficiency as a level between 21 and 29 ng/mL (2). 1. IOM ([place] of Medicine). 2010. Dietary reference intakes for calcium and D. [place]: The National Academies Press. 2. [place] MF, Maya [place], Kesha OLGUIN, et al. Evaluation, treatment, and prevention of vitamin D deficiency: an Endocrine Society clinical practice guideline. JCEM. 2010; 96(7):1911-30. Performed By: #### L IPA, CMP #### [facility] [address] [address] [address] Sandra Castano CBC AUTO DIFFon 01-13-2022 BASO # 0.0 103/ul Normal 0.0-0.1 [facility] Comment on above: Performed By: #### L IPA, CMP #### [facility] [address] [place] [address] Dr. Sandra Castano Basophils/100 WBC (Bld) 0.5 % Normal 0.2-2.0 [facility] Comment on above: Performed By: #### L IPA, CMP #### [facility] [address] [place] [address] Dr. Sandra Castano EO # 0.1 103/ul Normal 0.0-0.7 [facility] Comment on above: Performed By: #### L IPA, CMP #### [facility] [address] [place] [address] Dr. Sandra Castano Eosinophils/100 WBC (Bld) 2.0 % Normal 0.9-7.0 [facility] Comment on above: Performed By: #### L IPA, CMP #### [facility] [address] [place] [address] Dr. Sandra Castano Erythrocyte distribution width (RBC) [Ratio] 13.7 % Normal 11.0-15.0 [facility] Comment on above: Performed By: #### L IPA, CMP #### [facility] [address] [place] [address] Dr. Sandra Castano Hematocrit (Bld) [Volume fraction] 39.9 % Normal 36.0-48.0 [facility] Comment on above: Performed By: #### L IPA, CMP #### [facility] [address] [place] [address] Dr. Sandra Castano Hemoglobin (Bld) [Mass/Vol] 13.0 g/dL Normal 12.0-16.0 [facility] Comment on above: Performed By: #### L IPA, CMP #### [facility] [address] [place] [address] Dr. Sandra Castano IG # 0.02 10e3/ul Normal 0.00-0.03 [facility] Comment on above: Performed By: #### L IPA, CMP #### [facility] [address] [address] [address] Sandra Castano IG % 0.3 % Normal 0.0-0.5 [facility] Comment on above: Performed By: #### L IPA, CMP #### [facility] [address] [address] [address] Sandra Castano LYMPH # 1.6 103/ul Normal 1.2-3.8 [facility] Comment on above: Performed By: #### L IPA, CMP #### [facility] [address] [address] [address] Sandra Castano Lymphocytes/100 WBC (Bld) 27.5 % Normal 20.5-60.0 [facility] Comment on above: Performed By: #### L IPA, CMP #### [facility] [address] [address] [address] Sandra Castano MANUAL DIFF REQ NO Normal [facility] Comment on above: Performed By: #### L IPA, CMP #### [facility] [address] [address] [address] Sandra Castano MCH (RBC) [Entitic mass] 29.2 pg Normal 26.7-34.0 [facility] Comment on above: Performed By: #### L IPA, CMP #### [facility] [address] [address] [address] Sandra Castano MCHC (RBC) [Mass/Vol] 32.6 g/dL Normal 29.9-35.2 [facility] Comment on above: Performed By: #### L IPA, CMP #### [facility] [address] [address] [address] Sandra Castano MCV (RBC) [Entitic vol] 89.7 fL Normal 81.0-99.0 [facility] Comment on above: Performed By: #### L IPA, CMP #### [facility] [address] [address] [address] Sandra Castano MONO # 0.4 103/ul Normal 0.3-0.8 [facility] Comment on above: Performed By: #### L IPA, CMP #### [facility] [address] [place] [address] Dr. Sandra Castano Monocytes/100 WBC (Bld) 6.6 % Normal 1.7-12.0 [facility] Comment on above: Performed By: #### L IPA, CMP #### [facility] [address] [place] [address] Dr. Sandra Castano NEUT # 3.7 103/ul Normal 1.4-6.5 [facility] Comment on above: Performed By: #### L IPA, CMP #### [facility] [address] [place] [address] Dr. Sandra Castano Neutrophils/100 WBC (Bld) 63.1 % Normal 43.0-75.0 [facility] Comment on above: Performed By: #### L IPA, CMP #### [facility] [address] [place] [address] Dr. Sandra Castano Platelet mean volume (Bld) [Entitic vol] 11.6 fL Normal 9.5-13.5 [facility] Comment on above: Performed By: #### L IPA, CMP #### [facility] [address] [place] [address] Dr. Sandra Castano PLT 256 103/ul Normal 150-450 [facility] Comment on above: Performed By: #### L IPA, CMP #### [facility] [address] [place] [address] Dr. Sandra Castano RBC 4.45 106/ul Normal 4.20-5.40 [facility] Comment on above: Performed By: #### L IPA, CMP #### [facility] [address] [place] [address] Dr. Sandra Castano WBC 5.9 103/ul Normal 4.0-11.0 [facility] Comment on above: Performed By: #### L IPA, CMP #### [facility] [address] [place] [address] Dr. Sandra Castano FERRITINon 01-13-2022 Ferritin [Mass/Vol] 108.0 ng/mL Normal 6.2-137.0 [facility] Comment on above: Performed By: #### C ALCULI #### [facility] [address] [address] [address] Sandra Castano IRON AND TIBCon 01-13-2022 % SATURATION 20.6 % Normal [facility] Comment on above: Performed By: #### C ALCULI #### [facility] [address] [place] [address] Dr. Snadra Castano Iron [Mass/Vol] 47.0 ug/dL Critically low 50.0-170.0 [facility] Comment on above: Performed By: #### C ALCULI #### [facility] [address] [address] [address] Sandra Castano TIBC DIRECT 228.0 ug/dL Critically low 250.0-450.[address] [facility] Comment on above: Performed By: #### C ALCULI #### [facility] [address] [place] [address] Dr. Sandra Castano MAGNESIUMon 01-13-2022 Magnesium [Mass/Vol] 1.7 mg/dL Critically low 1.8-2.4 [facility] Comment on above: Performed By: #### C ALCULI #### [facility] [address] [place] [address] Dr. Sandra Castano PHOSPHORUSon 01-13-2022 Phosphate [Mass/Vol] 3.4 mg/dL Normal 2.6-4.7 [facility] Comment on above: Performed By: #### L IPA, CMP #### [facility] [address] [place] [address] Dr. Sandra Castano PROF 14(COMP METB)on 022 Albumin [Mass/Vol] 3.8 g/dL Normal 3.4-5.0 [facility] Comment on above: Performed By: #### C ALCULI #### [facility] [address] [place] [address] Dr. Sandra Castano Albumin/Globulin [Mass ratio] 1.1 {ratio} Normal [facility] Comment on above: Performed By: #### C ALCULI #### [facility] [address] [place] [address] Dr. Sandra Castano ALP [Catalytic activity/Vol] 78 U/L Normal 46-116 [facility] Comment on above: Performed By: #### C ALCULI #### [facility] [address] [place] [address] Dr. Sandra Castano ALT [Catalytic activity/Vol] 34 U/L Normal 14-59 [facility] Comment on above: Performed By: #### C ALCULI #### [facility] [address] [place] [address] Dr. Sandra Castano Anion gap [Moles/Vol] 10.8 mmol/L Normal [facility] Comment on above: Performed By: #### C ALCULI #### [facility] [address] [place] [address] Dr. Sandra Castano AST [Catalytic activity/Vol] 20 U/L Normal 15-37 [facility] Comment on above: Performed By: #### C ALCULI #### [facility] [address] [place] [address] Dr. Sandra Castano Bilirubin [Mass/Vol] 0.5 mg/dL Normal 0.2-1.0 [facility] Comment on above: Performed By: #### C ALCULI #### [facility] [address] [place] [address] Dr. Sandra Castano Calcium [Mass/Vol] 9.2 mg/dL Normal 8.5-10.1 [facility] Comment on above: Performed By: #### C ALCULI #### [facility] [address] [place] [address] Dr. Sandra Castano Chloride [Moles/Vol] 102 mmol/L Normal 98-107 [facility] Comment on above: Performed By: #### C ALCULI #### [facility] [address] [place] [address] Dr. Sandra Castano CO2 [Moles/Vol] 31.2 mmol/L Normal 21.0-32.0 [facility] Comment on above: Performed By: #### C ALCULI #### [facility] [address] [place] [address] Dr. Sandra Castano Creatinine [Mass/Vol] 0.78 mg/dL Normal 0.55-1.02 [facility] Comment on above: Performed By: #### C ALCULI #### [facility] [address] [address] [address] Sandra Castano EGFR-AF [place] ISLANDER >60 Normal >=60 [facility] Comment on above: Performed By: #### C ALCULI #### [facility] [address] [address] [address] Sandra Castano EGFR-NON AF [place]ER >60 Normal >=60 [facility] Comment on above: Performed By: #### C ALCULI #### [facility] [address] [address] [address] Sandra Castano Globulin (S) [Mass/Vol] 3.6 g/dL Normal [facility] Comment on above: Performed By: #### C ALCULI #### [facility] [address] [place] [address] Dr. Sandra Castano Glucose [Mass/Vol] 101 mg/dL Normal 74-106 [facility] Comment on above: Performed By: #### C ALCULI #### [facility] [address] [address] [address] Sandra Castano Potassium [Moles/Vol] 4.0 mmol/L Normal 3.5-5.1 [facility] Comment on above: Performed By: #### C ALCULI #### [facility] [address] [place] [address] Dr. Sandra Castano Protein [Mass/Vol] 7.4 g/dL Normal 6.4-8.2 [facility] Comment on above: Performed By: #### C ALCULI #### [facility] [address] [address] [address] Sandra Castano Sodium [Moles/Vol] 140 mmol/L Normal 136-145 [facility] Comment on above: Performed By: #### C ALCULI #### [facility] [address] [address] [address] Sandra Castano Urea nitrogen [Mass/Vol] 14.0 mg/dL Normal 7.0-18.0 [facility] Comment on above: Performed By: #### C ALCULI #### [facility] [address] [address] [address] Sandra Castano Urea nitrogen/Creatinin e [Mass ratio] 17.9 mg/mg Normal [facility] Comment on above: Performed By: #### C ALCULI #### [facility] [address] [address] [address] Sandra Castano VIT B12 AND FOLATEon 022 Cobalamin (Vitamin B12) [Mass/Vol] 1475.0 pg/mL Critically high 193.0-986.0 [facility] Comment on above: Performed By: #### C ALCULI #### [facility] [address] [address] [address] Sandra Castano FOLATE 11.80 ng/mL Normal 8.60-58.90 [facility] Comment on above: Performed By: #### C ALCULI #### [facility] [address] [address] [address] Sandra Castano MG MAMM SCREEN 3D SRINATH CADon 12-03-2021 MG MAMM SCREEN 3D SRINATH CAD Patient: ELIDA CALVILLO Exam Date: 12/03/2021 : 1975 Gender:F Ordering : DR LUDY LAINEZ . Admission #: [id number] Family : Order #: [id number] CLICK HERE TO VIEW EXAM RADIOLOGY REPORT PROCEDURE: MAMMOGRAM SCREENING 3D BILATERAL CAD COMPARISON: MG MAMM SCREEN SRINATH W CAD, 10/18/2019. MG MAMM SCREEN 3D SRINATH CAD, 11/20/2020. MG MAMM SRINATH DIAG FU, 11/18/2019. INDICATIONS: Screening mammography Calculator Name NCI Breast Cancer Risk Assessment Tool 5 Year Breast Cancer Risk 0.80% Lifetime Breast Cancer Risk 8.40% Personal Breast Cancer No Personal Ovarian Cancer No Treatments None Family Cancers Father with prostate cancer at age 51; Grandfather-maternal with colon cancer at age 68. LOCATION: [facility] BREAST COMPOSITION: Scattered areas fibroglandular [...] on 12/03/2021 at 12:49 Normal [facility] LOWER EXTREMITY JOINT SURVEY on 02-19-2021 LOWER EXTREMITY JOINT SURVEY [facility] Department of Radiology [address] [place] [id number] ===== Patient Name: ELIDA CALVILLO : 1975 Sex: F Age: Race: White Pt. 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 Electronically signed: Dylon Duenas. Transcribed by: [email or web address], User Resident: Electronically Signed by: DYLON DUENAS @ 02/20/2021 12:06 PM Normal [facility] Comment on above: Order Comment: Evalu ate Vital Signs Date Time Vital Sign Value Performing Clinician Facility 06-10-2023 09:20-0500 Diastolic blood pressure 80 mm[Hg] Romi Lue [facility] 06-10-2023 09:20-0500 Mean blood pressure 101 mm[Hg] Romi Lue [facility] 06-10-2023 09:20-0500 Systolic blood pressure 142 mm[Hg] Romi Lue [facility] 06-10-2023 09:06-0500 Blood Pressure Location Romi Lue [facility] 06-10-2023 09:06-0500 Diastolic blood pressure 86 mm[Hg] Romi Lue [facility] 06-10-2023 09:06-0500 Heart rate 71 /min Romi Lue [facility] 06-10-2023 09:06-0500 Systolic blood pressure 144 mm[Hg] Romi Lue [facility] 09-04-2022 08:32-0400 Blood Pressure Location Romi Lue [facility] 09-04-2022 08:32-0400 Diastolic blood pressure 82 mm[Hg] Romi Lue [facility] 09-04-2022 08:32-0400 Heart rate 57 /min Romi Lue [facility] 09-04-2022 08:32-0400 Respiratory rate 16 /min Romi Lue [facility] 09-04-2022 08:32-0400 Systolic blood pressure 138 mm[Hg] Romi Lue [facility] 07-02-2022 09:14-0500 Blood Pressure Location Romi Lue [facility] 07-02-2022 09:14-0500 Diastolic blood pressure 78 mm[Hg] Romi Lue [facility] 07-02-2022 09:14-0500 Heart rate 68 /min Romi Lue [facility] 07-02-2022 09:14-0500 Respiratory rate 16 /min Romi Lue [facility] 07-02-2022 09:14-0500 Systolic blood pressure 124 mm[Hg] Romi Lue [facility] 03-24-2022 16:38-0400 Blood Pressure Location Miles Guevara [facility] 03-24-2022 16:38-0400 Diastolic blood pressure 78 mm[Hg] Miles Ismael [facility] 03-24-2022 16:38-0400 Heart rate 61 /min Miles Ismael [facility] 03-24-2022 16:38-0400 Mean blood pressure 95 mm[Hg] Miles Ismael [facility] 03-24-2022 16:38-0400 Respiratory rate 18 /min Miles Ismael [facility] 03-24-2022 16:38-0400 SaO2% (BldA) [Mass fraction] 98 % Miles Guevara [facility] 03-24-2022 16:38-0400 Systolic blood pressure 131 mm[Hg] Miles Ismael [facility] 03-24-2022 15:16-0400 Blood Pressure Location Miles Ismael [facility] 03-24-2022 15:16-0400 Diastolic blood pressure 75 mm[Hg] Miles Ismael [facility] 03-24-2022 15:16-0400 Heart rate 66 /min Miles Ismael [facility] 03-24-2022 15:16-0400 Mean blood pressure 96 mm[Hg] Miles Ismael [facility] 03-24-2022 15:16-0400 Respiratory rate 18 /min Miles Ismael [facility] 03-24-2022 15:16-0400 SaO2% (BldA) [Mass fraction] 98 % Miles Guevara [facility] 03-24-2022 15:16-0400 Systolic blood pressure 138 mm[Hg] Miles Guevara [facility] 03-24-2022 13:37-0400 Blood Pressure Location Miles Guevara [facility] 03-24-2022 13:37-0400 Diastolic blood pressure 74 mm[Hg] Miles Ismael [facility] 03-24-2022 13:37-0400 Heart rate 65 /min Miles Ismael [facility] 03-24-2022 13:37-0400 Mean blood pressure 106 mm[Hg] Miles Ismael [facility] 03-24-2022 13:37-0400 Respiratory rate 18 /min Miles Ismael [facility] 03-24-2022 13:37-0400 SaO2% (BldA) [Mass fraction] 100 % Miles Ismael [facility] 03-24-2022 13:37-0400 Systolic blood pressure 171 mm[Hg] Miles Ismael [facility] 03-24-2022 13:30-0400 Body temperature 98.24 [degF] Miles Ismael [facility] 03-24-2022 13:30-0400 Respiratory rate 10 /min Miles Ismael [facility] 03-24-2022 13:15-0400 Respiratory rate 11 /min Miles Ismael [facility] 03-24-2022 13:00-0400 Respiratory rate 13 /min Miles Ismael [facility] 03-24-2022 12:30-0400 Body temperature 98.06 [degF] Miles Guevara [facility] 03-24-2022 08:21-0400 Body temperature 97.7 [degF] Miles Guevara [facility] 03-24-2022 08:21-0400 Heart rate 72 /min Miles Guevara [facility] Encounters Encounter Date Encounter Type Care Provider Facility Start: 11-19-2023 End: 11-19-2023 ambulatory MARSHALL LYON Not Available Start: 10-27-2023 End: 10-27-2023 Lab Drop off Radha L Felipa [facility] Start: 10-27-2023 End: 10-27-2023 ambulatory MANAGER ELIGIBILITY Radha L Felipa Facility:[facility] Start: 10-14-2023 End: 10-14-2023 ambulatory MANAGER ELIGIBILITY Radha L Felipa Facility:[facility] Start: 09-11-2023 End: 09-11-2023 ambulatory MANAGER ELIGIBILITY Radha L Felipa Facility:[facility] Start: 06-10-2023 End: 06-10-2023 ambulatory Romi M. Lue Facility:[facility] Start: 06-10-2023 End: 06-10-2023 Patient encounter procedure Romi M. Lue [facility] Start: 12-03-2022 End: 12-03-2022 ambulatory Romi M. Lue Facility:[facility] Start: 10-24-2022 End: 10-24-2022 Lab Drop off Radha L Felipa [facility] Start: 09-04-2022 End: 09-05-2022 ambulatory ROMI M LUE . Facility: Start: 09-04-2022 End: 09-04-2022 Patient encounter procedure Romi M. Lue [facility] Start: 08-30-2022 End: 08-31-2022 ambulatory ROMI M LUE . Facility: Start: 07-30-2022 End: 07-30-2022 ambulatory ROMI M LUE . Facility: Start: 07-24-2022 Encounter for preprocedural laboratory examination ROMI SARMIENTO . [facility] Start: 07-18-2022 End: 07-19-2022 ambulatory ERICK KRAFT Facility:[facility] Start: 07-18-2022 End: 07-19-2022 Encounter for preprocedural laboratory examination ERICK KRAFT Facility:[facility] Start: 07-10-2022 End: 07-11-[address] ETTA CEDEÑO Facility:[facility] Start: 07-02-2022 End: 07-02-2022 Patient encounter procedure Romi Sarmiento [facility] Start: 06-30-2022 End: 07-01-[address] ETTA CEDEÑO Facility:[facility] Start: 06-13-2022 End: 06-13-2022 Patient encounter procedure Romi Sarmiento [facility] Start: 06-06-2022 End: 06-07-[address] ETTA CEDEÑO Facility:[facility] Start: 05-27-2022 End: 05-28-[address] CINDI LINDA . Facility:[facility] Start: 05-07-2022 End: 05-08-[address] DOCTOR PALACIOS Facility:[facility] Start: 03-24-2022 End: 03-24-2022 Admission to same day surgery center Miles Guevara [facility] Start: 01-13-2022 End: 01-14-2022 ambulatory MARY SOTO Facility:[facility] Start: 12-03-2021 End: 12-04-[address] LUDY LAINEZ . Facility:[facility] Procedures Date Procedure Procedure Detail Performing Clinician Start: 07-30-2022 Lipoatrophy (disorder) Radha Leo Start: 06-01-1992 History of operative procedure on knee Miles Guevara Esophagogastrostomy, antesternal or antethoracic Miles Guevara Extraction of wisdom tooth M nohemy Guevara H/O: tubal ligation Miles Guevara Hand tendon operation Rosie Guevara Plan of Treatment Date Care Activity Detail Author Start: 2023 ambulatory Ambulatory Facility:[facility] Immunizations Immunization Date Immunization Notes Care Provider [facility] 03-17-2023 influenza virus vaccine, unspecified formulation Romi Lue [facility] 03-06-2023 influenza virus vaccine, unspecified formulation Romi Lue [facility] 04-28-2022 influenza virus vaccine, unspecified formulation Romi Lue [facility] 04-28-2022 SARS-CoV-2 (COVID-19 ) [id number] Romi Lue [facility] 05-21-2021 SARS-CoV-2 (COVID-19 ) mRNA BNT-162b2 vax Romi Lue [facility] 03-08-2021 influenza virus vaccine, unspecified formulation Romi Lue [facility] 09-20-2020 SARS-CoV-2 (COVID-19 ) mRNA BNT-162b2 vax Romi Lue [facility] 08-30-2020 SARS-CoV-2 (COVID-19 ) mRNA BNT-162b2 vax Romi Lue [facility] 02-08-2020 influenza virus vaccine, unspecified formulation Romi Lue [facility] 02-15-2019 influenza virus vaccine, unspecified formulation Romi Lue [facility] 01-29-2019 influenza virus vaccine, unspecified formulation Romi Lue [facility] 03-06-2018 influenza virus vaccine, unspecified formulation Romi Lue [facility] 02-26-2015 influenza virus vaccine, unspecified formulation Romi Lue [facility] 02-25-2014 influenza virus vaccine, unspecified formulation Romi Lue [facility] 04-24-2013 influenza virus vaccine, unspecified formulation Romi Lue [facility] Payers Date Payer Category Payer Unknown [id number] .. [id number] 1975 Unknown [id number] .. [id number] 1975 Unknown [id number] [id number] 1975 Unknown [id number] .16.84 0.1.120320.3.579.2.593 1975 Unknown [id number] 0.1.835278.3.579.2.593 1975 Unknown [id number] .16.84 0.1.938516.3.579.2.593 1975 Unknown [id number] .16.84 0.1.876130.3.579.2.593 1975 Unknown [id number] 2.16.84 0.1.614014.3.579.2.593 1975 Unknown [id number] 2.16.84 0.1.261446.3.579.2.593 1975 Unknown [id number] 2.16.84 0.1.089882.3.579.2.593 1975 Unknown [id number] 2.16.84 0.1.999495.3.579.2.593 1975 Unknown [id number] 2.16.84 0.1.605738.3.579.2.1259 1975 Unknown [id number] 2.16.8 40.1.397898.3.579.2.727 1975 Unknown [id number] 2.16.8 40.1.489278.3.579.2.727 1975 Unknown [id number] 2.16.8 40.1.755474.3.579.2.727 1975 Unknown [id number] 2.16.8 40.1.417104.3.579.2.727 1975 Unknown [id number] 2.16.8 40.1.558939.3.579.2.727 1975 Unknown [id number] 2.16.8 40.1.829249.3.579.2.727 1975 Unknown [id number] 2.16.8 40.1.933803.3.579.2.727 1959 Unknown [id number] 1960 Unknown [id number] Self-pay Self Pay [id number] Social History Date Type Detail [facility] Start: 1975 Sex Assigned At Female F [facility] Tobacco smoking status No Smokin g Status Entered [facility] Sex Assigned At Female [facility] Start: 06-13-2022 End: 10-27-2023 Tobacco smoking status Never smoked tobacco (finding) [facility] Tobacco smoking status Never [facility] Medical Equipment Procedure Code Equipment Code Equipment [...] Guevara DO 03/24/22 Non Biological Knee R [id number] FDA Start: 03-24-2022 Goals Date Patient Goal Desired Activity /State Functional Status Date Assessment Result Facility 06-10-2023 Functional Status N/A [facility] 09-04-2022 Functional Status N/A [facility] 07-02-2022 Functional Status N/A [facility] 06-13-2022 Functional Status N/A [facility] Clinical Notes 03-24-2022 to 06-10-2023 Note Date [...] include: ?8 oz (237 mL) of milk, tdafmru-fbhgxmkndxgr-unjgm milk, and calcium-fortifiedfruit juice. Calcium-fortified means that [...] ?Spinach (cooked), rhubarb, beets, sweet potatoes, and Hong Konger chard. ?Peanuts. ?Potato chips, algerian fries, and baked potatoes with skin on. ?Nuts and nut products. ?Chocolate. If you regularly take a diuretic medicine, make sure to eat at least 1 or 2 servings of fruits or vegetables that are high in potassium each day. These include: ?Avocado. ?Banana. ?Randolph, prune, carrot, or tomato juice. ?Baked potato. [...] magnesium, fish oil, or vitamin B6. Take imuf-eqj-lsbtulp and prescription medicines only as told by [...] Casseroles. Pizza. Lasagna. Frozen meals. Potato chips. Guinean fries. The items listed above may not [...] provider. Document Revised: 08/28/2022 Document Reviewed: 08/28/2022 [employer] Patient Education 2022 [employer]. Follow Up Care 12/03/2022 08:49:17 With:Torsten DIAMOND, KT Jolley, URO Address: [address] [place] [phone] When: Unknown Comments:6 mos w/ NEAL and OSCAR [facility] [place] 09-04-2022 Hospital Discharg e instructions Patient Education 09/04/2022 09:31:21 Kidney Stones, Kbry-ym-Fxvy Kidney Stones Kidney stones are rock-like masses [...] Follow these instructions at home: Medicines Take yylb-wot-telyjsg and prescription medicines only as told by [...] 11/03/2008 Document Revised: 10/04/2019 Document Reviewed: 10/04/2019 [employer]dim Patient Education 2019 [employer]. Follow Up Care 08/01/2022 14:22:05 With:Torsten DIAMOND, KT Jolley, URO Address: When: Unknown [facility] 07-02-2022 Hospital Discharg e instructions Patient Education [...] include: ?Spinach. ?Rhubarb. ?Beets. ?Potato chips and algerian fries. ?Nuts. If you regularly take a diuretic medicine, make sure to eat at least 1 2 fruits or vegetables high in potassium each day. These include: ?Avocado. ?Banana. ?Randolph, prune, carrot, or tomato juice. ?Baked potato. [...] Casseroles. Pizza. Lasagna. Frozen meals. Potato chips. Guinean fries. Summary You can reduce your risk [...] 09/12/2011 Document Revised: 09/07/2019 Document Reviewed: 04/28/2017 [employer] Patient Education 2020 [employer]. Follow Up Care 06/13/2022 11:44:22 With:Torsten DIAMOND, KT Jolley, URO Address: When: Unknown [facility] 06-13-2022 Hospital Discharg e instructions Patient [...] include: ?Spinach. ?Rhubarb. ?Beets. ?Potato chips and algerian fries. ?Nuts. If you regularly take a diuretic medicine, make sure to eat at least 1 2 fruits or vegetables high in potassium each day. These include: ?Avocado. ?Banana. ?Randolph, prune, carrot, or tomato juice. ?Baked potato. [...] Casseroles. Pizza. Lasagna. Frozen meals. Potato chips. Guinean fries. Summary You can reduce your risk [...] 09/12/2011 Document Revised: 09/07/2019 Document Reviewed: 04/28/2017 [employer] Patient Education 2020 [employer]. Follow Up Care 05/29/2022 15:18:35 With:Torsten DIAMOND, KT Jolley, URO Address: When: Unknown [facility] 03-24-2022 Hospital Discharg e instructions Patient Education [...] as possible. If the spirometer includes a head boys golf coach indicator, use this to guide you [...] 09/28/2007 Document Revised: 06/10/2018 Document Reviewed: 03/31/2018 [employer] Patient Education 2020 [employer]. 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 It is therefore advised not to drive until after your first office visit following surgery FOLLOW-UP OFFICE VISIT: Miles Guevara DO [facility] [address] [place] [address] Reviewed: 09-06 Follow Up Care 02/13/2022 09:46:16 With:Miles Guevara Address: [address] [place] [address] Business (1) When: Unknown Comments:Keep scheduled appointment [facility] 03-24-2022 Evaluation + Plan note Extrac mulu from: Title:Post-anesthesia - General Author:Ashvin Gipson DO Date:03/24/22 Plan Transfer/ Discharge: Condition stable. Extracted from: Title:Pre-anesthesia - Adult Author:Ashvin Bartlett Jr., DO Date:03/24/22 Plan [place] [employer] Anesthesiologists (ASA) physical status classification: Class II. Anesthetic Preoperative Plan Anesthesia: General. , Regional Adductor canal block. Anesthetic plan, risks, benefits, and alternatives discussed with the patient and/or family. Patient verbalized understanding. Adverse reactions, complications, and alternatives discujssed. Consent signed and on chart.. [facility] Future App[facility]ments Appointment Date:07/02/2022 09:30:00 AM Scheduled Provider:Romi Sarmiento MD Location:[facility] Appointment Type:URO Office Visit [facility] Evaluation + Plan note Future Appointments Appointment Date:10/20/2022 03:30:00 PM Scheduled Provider:Romi Sarmiento MD Location:[facility] Appointment Type:URO Video Visit Diagnostic Tests Pending * PTH Intact 09/04/22 * Uric Acid 09/04/22 [facility] Evaluation + Plan note Future Appointments Appointment Date:12/03/2022 08:30:00 AM Scheduled Provider:Romi Sarmiento MD Location:[facility] Appointment Type:URO Office Visit Diagnostic Tests Pending * PAP [id number] w/ HPV and Genotype rflx 10/24/22 [facility] Future Appointments Appointment Date:2023 09:00:00 AM Scheduled Provider:Romi Sarmiento MD Location:[facility] Appointment Type:URO Office Visit [facility] evaluation + Plan note Future Appointments Appointment Date:2023 09:00:00 AM Scheduled Provider:Romi Sarmiento MD Location:[facility] Appointment Type:URO Office Visit Diagnostic Tests Pending * PAP [id number] w/ HPV and Genotype rflx 10/27/23 [facility] N[facility] No data available for this section [facility] No data available for this section [facility] No data available for this section [facility] Assessments No Assessments Information Available Summary Purpose Family History No Family History Records FoundNo Family History Records Found No data available for this section No data available for this section No Family History Records FoundNo Family History Records FoundNo Family History Records Found Advance Directives No Advanced Directives Records FoundNo Advanced Directives Records FoundNo Advanced Directives Records FoundNo Advanced Directives Records FoundNo Advanced Directives Records Found Additional Source Comments INFORMATION SOURCE (unrecogn ized section and content) DATE CREATED AUTHOR 02/21/2021 [facility] DATE CREATED AUTHOR AUTHOR'S ORGANIZ ATION 09/14/2022 [facility] DATE CREATED AUTHOR AUTHOR'S ORGANIZ ATION 11/01/2023 [facility] DATE CREATED AUTHOR AUTHOR'S ORGANIZ ATION 11/21/2023 [facility] dical [facility] DATE CREATED AUTHOR AUTHOR'S ORGANIZ ATION 11/29/2023 [facility] Patient Care team informatio n (unrecognized section and content) Personnel Name: LUDY LAINEZ MD Address: Address: [address] [place] [address] Personnel Name: LUDY LAINEZ MD Address: Address: [address] [place] [address] Personnel Name: LUDY LAINEZ MD Address: Address: [address] [place] [address] Personnel Name: LUDY LAINEZ MD Address: Address: [address] [place] [address] Personnel Name: Radha Farley Address: Address: [address] [place] [address]- Personnel Name: Radha Farley Address: Address: [address] [place] [address]- Personnel Name: Radha Farley Address: Address: [address] [place] [address]- FOR RECORDS PERTAINING TO PATIENTS WHO ARE [...] BE BASED ON THE PRIMARY CLINICAL RECORDS. [employer] [facility]. provides no warranty or guarantee of the accuracy or completeness of information in this document.
== END 2023-11-30 10:47 | disposition home or self-care (01) ==
LOC: US 10:46
PROVIDERS: PCP Nurse Practitioner; Visit Provider Urology
DX: N20.0 Calculus of kidney (principal)
CPT/HCPCS: 74018; 76775

== ENCOUNTER 2023-12-25 09:13 | Outpatient (OUT) | payer OTHER, SELFPAY ==
--- OUTSIDE RECORDS SUMMARY | 2023-12-25 09:16 | XMS_ITS | CCD ---
Author Organization [facility] Care Team Providers Care Auto Slip Cover Installer Name Role Phone LUDY LAINEZ Primary Care Physician [phone] EIRCK KRAFT Consulting Unavailable LAINEZ ., DR LUDY [...] ROMI M Consulting Unavailable ZIEBER, DR ETTA [employer] Consulting Unavailable LAINEZ ., DR LUDY French [...] Consulting Unavailable Radha Leo Primary Care Physician [phone] MARSHALL LYON Attending Unavailable Felipa, CONDOMINIUM MANAGER Radha L Attending Unavailable Felipa, CONDOMINIUM MANAGER Radha Ocampo Attending Unavailable Romi Sarmiento. Attending Unavailable Romi Sarmiento. Attending Unavailable Felipa, CONDOMINIUM MANAGER Radha L Attending Unavailable Felipa, CONDOMINIUM MANAGER Radha L Admitting Unavailable Felipa, CONDOMINIUM MANAGER Radha L Attending Unavailable Unavailable Unavailable Unavailable Allergies Allergy Classification Reported Allergen(s) Allergy Type Date of Onset Reaction(s) Facility (1 source) No Known Medication Allergies; Translations: [No Known Medication Allergies] Propensity to adverse reactions (disorder) [facility] Repository Medications Current Medications Medication Drug Class(es) Dates Sig (Normalized) Sig (Original) acetaminophen 325 mg / oxyCODONE hydrochloride 5 mg oral tablet (1 source) Opioid Agonist Start: 03-22-2022 Percocet 325 mg-5 mg Tab See Instructions, 50 tab(s), Refill(s) 0, 1- 2 tab(s) Oral q4hr PRN post operative knee replacement pain. Duration 7 days, [facility] #[id number], 165, cm, 02/26/22 12:16:00 EDT, Height/Length Dosing, [...] day(s), # 30 tab(s), Refills(s) 0, Pharmacy: [facility] #[id number], 165, cm, 02/26/22 12:16:00 EDT, Height/Length Dosing, 85.1, kg, 02/26/22 12:16:... Start Date: 03/22/22 Stop Date: 04/21/22 Status: Ordered Bariatric Multivitamins with 45 mg Iron oral capsule (8 sources) Start: 02-26-2022 take 1 capsule by [...] day(s), # 20 cap(s), Refills(s) 0, Pharmacy: [facility] #[id number], 165, cm, 02/26/22 12:16:00 EDT, Height/Length Dosing, 85.1, kg, 02/26/22 12:16:00 EDT, Weight Do... Start Date: 03/22/22 Stop Date: 03/27/22 Status: Ordered docusate sodium 100 mg oral capsule (1 source) Start: 03-22-2022 take 1 capsule by mouth twice daily Colace 100 mg Cap 100 mg = 1 cap(s), Oral, BID, # 20 cap(s), Refills(s) 0, Pharmacy: [facility] #[id number], 165, cm, 02/26/22 12:16:00 EDT, Height/Length Dosing, 85.1, kg, 02/26/22 12:16:00 EDT, Weight Dosing Start Date: 03/22/22 Status: Ordered omeprazole 40 mg delayed release oral capsule (2 sources) Proton Pump Inhibitor Start: 09-11-2023 take 1 capsule by mouth once daily omeprazole 40 mg Cap-DR 40 mg = 1 cap(s), Oral, Daily, # 90 cap(s), Refills(s) 3, Pharmacy: [facility] #[id number], 165, cm, 09/11/23 11:19:00 EDT, Height/Length Dosing, [...] nausea/vomiting, # 20 tab(s), Refills(s) 0, Pharmacy: [facility] #[id number], 165, cm, 02/26/22 12:16:00 EDT, Height/Length Dosing, 85.1, kg, 02/26/22 12:16:00 EDT, Weight Dosing Start Date: 03/22/22 Status: Ordered tamsulosin hydrochloride 0.4 mg oral capsule (2 sources) alpha-Adrenergic Chaya Start: 06-13-2022 take 1 capsule by mouth once daily Flomax 0.4 mg Cap 0.4 mg = 1 cap(s), Oral, Daily, # 30 cap(s), Refills(s) 1, Pharmacy: [facility] #[id number], 165, cm, 06/13/22 9:38:00 EST, Height/Length Dosing, 73.5, kg, 06/13/22 9:38:00 EST, Weight Dosing Start Date: 06/13/22 Status: Ordered Completed/Discontinued Medications Medication Drug Class(es) Dates Sig (Normalized) Sig (Original) Calcium Citrate (8 sources) Start: 02-26-2022 take 2 tablets by mouth twice daily calcium citrate Tab 500 mg, Oral, BID, 2 tabs twice a day, Prophylaxis Start Date: 02/26/22 Status: Ordered Problems Active Problems Problem Classification Problem Date Documented Da te Episodic/Chronic Abdominal pain (6 sources) Unspecified abdominal pain; Translations: [Pain in pelvis] Onset: Episodic Acquired foot deformities (10 sources) Foot-drop Onset: 1 02-26-2022 Episodic Calculus of urinary tract (20 sources) Kidney stone; Translations: [Calculus of kidney] Onset: 3 Episodic Esophageal disorders (2 sources) Gastroesophageal reflux disease 09-11-2023 Chronic Essential hypertension (8 sources) Hypertensive disorder; Translations: [Essential (primary) hypertension] Onset: 3 06-13-2022 Chronic Genitourinary symptoms and ill-defined conditions (6 sources) Microscopic hematuria; Translations: [Asymptomatic microscopic hematuria] Onset: 3 Episodic Joint disorders and dislocations; trauma-related (2 sources) 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 Menstrual disorders (2 sources) Disorder of menstruation 09-11-2023 Chronic Osteoarthritis (20 sources) Osteoarthritis of knee; Translations: [Unilateral primary osteoarthritis, right knee] Onset: 1 Chronic Other aftercare (1 source) Other snf (current) drug therapy; Translations: [OTH RESIDENTIAL CURRENT DRUG THERAPY] Onset: 3 Episodic Other [...] SPECIFIED POSTPROCEDURAL STATES] Onset: 3 Episodic Unclassified (7 sources) Asymptomatic microscopic hematuria 06-13-2022 Unclassified (4 sources) Body mass index 20-24 - normal 10-24-2022 Unclassified (4 sources) Non-smoker 10-24-2022 Unclassified (2 sources) Acquired varus deformity of right knee Onset: 09-11-2023 Unclassified (2 sources) Cancer cervix screening status 10-27-2023 Unclassified (4 sources) Patient encounter status 10-27-2023 Past or [...] PROSTATE] Onset: 12-06-2021 Episodic Sprains and strains (2 sources) Rupture of anterior cruciate ligament Onset: 02-19-2021 09-11-2023 Episodic Results Test Name Value Interpretation Reference Range Facil ity Reminderson 12-10-2023 Reminders Reminders From: Odalys Hermosillo To: EU - Recalls Lue; Sent: 06/10/2023 09:51:08 EST Show up: 11/09/2023 10:51:00 EDT Subject: KUB and OSCAR Reminder Message Please Remember to:_have pt get KUB and OSCAR done prior to appt. Prefers [facility]. From: Marisa Barth (EU - Recalls Lue) To: Torsten DIAMOND, Romi Sinclair; Sent: 11/25/2023 12:44:47 EDT Show up: 11/25/2023 12:44:00 EDT Subject: RE: KUB and OSCAR Pt had CT a/p w/ con done 08/2023 please advise if OSCAR/KUB need done still From: Romi Sarmiento MD To: NURA - Giooneal Torsten; Sent: 11/27/2023 13:14:34 EDT Show up: 11/27/2023 13:14:00 EDT Subject: RE: KUB and OSCAR Just KUB (OSCAR if having pain) Thanks, KML Pt seen 12/02/23 scheduled for stone surgery [facility] Ambulatory Visit Summaryon 0 2023 Ambulatory Visit Summary Ambulatory Visit Summary ELIDA CALVILLO :1975 Visit Date:2023 Ambulatory Visit Instructions Your Diagnosis Kidney stones Asymptomatic microscopic hematuria Your Care Team Attending Physician - Romi Sarmiento MD Primary Care Physician - Radha Farley This Is Your Medications List Contact prescribing physician if questions or concerns calcium citrate (calcium citrate Tab) multivitamin with minerals (Bariatric Multivitamins with 45 mg Iron oral capsule) omeprazole (omeprazole 40 mg Cap-DR) Procedures Performed 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 Discharge Vitals Heart Rate (Peripheral) 77 Respiratory Rate 16 Blood Pressure 135/82 Height 165 cm Height 65 in Weight 66 kg Weight 145.2 lb BMI 24.24 What to do next You Need to Schedule the Following Appointments Follow Up with Torsten DIAMOND, Romi Sinclair, URL, URO When: Where: [address] [place] [address]- [phone] Medications What How Much When Why Instructions Unchanged calcium citrate (calcium citrate Tab) 500 Milligram By Mouth 2 times a day 2 tabs twice a day Contact prescribing physician if questions or concerns Unchanged multivitamin with minerals (Bariatric Multivitamins with 45 mg Iron oral capsule) 1 Capsules By Mouth Every day Contact prescribing physician if questions or concerns Unchanged omeprazole (omeprazole 40 mg Cap-DR) 1 Capsules By Mouth Every day Pelvic pain Abnormal menstruation GERD (gastroesophageal reflux disease) BMI 23.0-23.9, adult Contact prescribing physician if questions or concerns Allergies No Known Medication Allergies Problems Ongoing - Any problem that you are currently receiving treatment for. Abnormal menstruation Acquired varus deformity of right knee Arthritis Asymptomatic microscopic hematuria BMI 24.0-24.9, adult Breast cancer screening by mammogram Cervical cancer screening Foot-drop GERD (gastroesophageal reflux disease) Hypertension Kidney stones Non-smoker Osteoarthritis of knee Patellar maltracking Pelvic pain Rupture of anterior cruciate ligament Well woman exam Patient Survey You may receive a survey via text or e-mail asking about your office visit. Please share your experience with us by completing your survey. We appreciate your feedback and thank you for choosing us for your care. Education Materials Laser Therapy for Kidney Stones Laser therapy for kidney stones is a procedure to break up small, hard mineral deposits that form in the kidney (kidney stones). The procedure is done using a device that produces a focused beam of light (laser). The laser breaks up kidney stones into pieces that are small enough to be passed out of the body through urination or removed from the body during the procedure. You may need laser therapy if you have kidney stones that are painful or block your urinary tract. This procedure is done by inserting a tube (ureteroscope) into your kidney through the urethral opening. The urethra is the part of the body that drains urine from the bladder. In women, the urethra opens above the vaginal opening. In men, the urethra opens at the tip of the penis. The ureteroscope is inserted through the urethra, and surgical instruments are moved through the bladder and the muscular tube that connects the kidney to the bladder (ureter) until they reach the kidney. Tell a health care provider about: ? Any allergies you have. ? All medicines you are taking, including vitamins, herbs, eye drops, creams, and uhrk-ooj-nckduto medicines. ? Any problems you or family members have had with anesthetic medicines. ? Any blood disorders you have. ? Any surgeries you have had. ? Any medical conditions you have. ? Whether you are or may be . What are the risks? Generally, this is a safe procedure. However, problems may occur, including: ? Infection. ? Bleeding. ? Allergic reactions to medicines. ? Damage to the urethra, bladder, or ureter. ? Urinary tract infection (UTI). ? Narrowing of the urethra (urethral stricture). ? Difficulty passing urine. ? Blockage of the kidney caused by a fragment of kidney stone. What happens before the procedure? Medicines ? Ask your health care provider about: ? Changing or stopping your regular medicines. This is especially important if you are taking diabetes medicines or blood thinners. ? Taking medicines such as aspirin and ibuprofen. These medicines can thin your blood. Do not take these medicines unless your health care provider tells you to take them. ? Taking uqwc-heb-ftopbhu medicines, vitamins, herbs, and supplements. Eating and drinking Follow instructions from your health care provider about eating and drinking, which may include: ? 8 oren (more content not included)... [facility] Urology Office/Clinic Noteon 2023 Urology Office/Clinic Note Urology Office/Clinic Note Chief Complaint 6m OSCAR/KUB & Metabolic Work Up HPI Staff 6m KUB & OSCAR & Metabolic Work Up DX: Kidney Stone & Microscopic Hematuria *No Urology Meds Litholink completed 07/05/23 Pt did go to the [facility] ER 09/02/23 CC: LUQ pain DX: Colitis CT ap w 09/02/23 *BL Nonobstructing nephrolithiasis: large 14mm stone w/in Lt Kidney OSCAR & KUB 11/30/23 Denies current flank pain. Did pass small stone 2m ago. Did not keep. But does have picture. Denies urinary sx. Concerned with large stone in Lt Kidney History of Present Illness Tests reviewed: reviewed UA, Litholink, CT scan, KUB, OSCAR I have reviewed the previous health record [...] HPI. Physical Exam Vitals & Measurements HR: 77(Peripheral) RR: 16 BP: 135/82 HT: 65 in HT: 165 cm WT: 66 kg WT: 145.2 lb BMI: 24.24 General Appearance: alert , no acute distress, well nourished, well developed female. Assessment/Plan 47 yo female with history of gastric bypass and recurrent kidney stones presents for follow up BBS 5 (8). 1. Kidney stones (N20.0: Calculus of kidney) Hx of gastric bypass surgery - risk factor for stones. Family hx - mother with stones. [1] Presented to [facility] ER on 05/27/22- CT AP with IV/PO contrast: 5 mm R UPJ stone, 1 mm R UVJ stone, mild hydronephrosis and delayed nephrogram. 3 mm L UVJ stone. Additional 2 to 3 mm nonobstructing renal calculi. OSCAR 06/30/22 - personal review: mild R hydro improved, BL nonobstructing stones, largest [address]. KUB neg CT AP w/o contrast 07/10/22 R hydroureteronephrosis 6 x 5 x 4 mm distal ureteral stone. RLP 2 mm stone, LLP 3.5 mm stone S/p Cysto, Right ureteroscopy w/ laser litho, stone extraction, string stent placed. Stent removed at home without complications. OSCAR 08/30/22 - BL stones - tiny RLP stone, 3.5 mm left stone KUB 05/18/23 [facility] - 5mm stone in RLP. 1cm stone in LLP. Personal review: stones are overestimated in size, likely multiple small stones. OSCAR 05/18/23 [facility] - 1.4cm stone in L renal pelvis (likely lower pole) and 7mm stone in mid to lower of R kidney. Metabolic stone workup: Stone analysis 20% CaOx monohydrate, 80% CaOx dihydrate. Ca 9.6 drawn 07/18/22. BMP wnl. LithoLink 24hr Urine Panel 11/02/22 - 1340mL of urine, mildly Ca 222, low citrate 384, high oxalate 59 Metabolic serum Workup 09/04/22 all wnl Litholink 07/05/23 - 2160 mL of urine, U24 Ca 256 H, U24 Na 158 H, U24 Phos [address] AP w con 09/02/23 [facility] - Nonobstructing 14 mm L renal stone. Several small nonobstructing stones bilaterally. OSCAR 11/30/23 [facility] - Several R nonobstructing renal stones, largest 6 x 5 x 3 mm. Several on L as well, largest 18 x 10 x 6 mm. No hydro. KUB 11/30/23 [facility] - Several small calcifications bilaterally, largest on L may represent 18 mm calcification or collection of smaller stones. Personal review: appears to be collection of stones. Reviewed repeat 24hr urine results. Advised pt calcium increased instead of decreasing. States she drinks 32oz of lactaid milk per day and takes calcium citrate, has to maintain calcium intake given hx of gastric bypass. Discussed trying potassium citrate, pt states she will discuss this with gastro. States she passed a stone 1.5 mos ago. Reviewed imaging results. Discussed procedural intervention including extracorporeal shockwave lithotripsy vs ureteroscopy with laser lithotripsy/stone basket extraction possible stent. Risks/benefits of each were discussed including but not limited to: ESWL- bleeding, hematoma, pain, infection, inability to [...] damage and need for more invasive procedures. Pt prefers to proceed with L URS/laser litho. -Will schedule a Cystoscopy with Left Retrogrades, Left Ureteroscopy, Left Laser Litho, Left Stone Basket, Left possible stent placement. Full informed consent has been obtained. Will order Gener (more content not included)... [facility] Comment on above: Result Comment: Elec tronically Signed By: Romi Sarmiento MD\.br\Date and Time Signed: 12/02/23 23:00 EDT\.br\Electronically Co-Signed By: Odalys Hermosillo\.br\Date and Time Co-Signed: 12/02/23 10:04 EDT Family Medicine Office/Clini c Noteon 11-02-2023 Family [...] in the family: no Pt is seeing November 18 for the free floating clamp History [...] masses. Pap obtained Neurologic: Grossly normal Skin: [place], moist, no tenting Lymph Nodes: No cervical adenopathy, nodes normal Mental Status: Alert and oriented x3. Normal mood and affect Assessment/Plan 1. Well woman exam (Z01.419: Encounter for gynecological examination (general) (routine) without abnormal findings) pt presents today for well woman exam. BSE discussed. mammogram order provided. pap obtained without difficulty. Has an appointment scheduled with Dr. Palomares for floating filadriannee clip, denies pain . RTC as needed Ordered: triamcinolone, 40 mg = 1 mL, Injection, IntraMuscular, Once, Stop date 10/27/23 9:44:00 EDT, Routine, Start date 10/27/23 9:44:00 EDT, 10/27/23 9:44:00 EDT PAP w/ HPV and Genotype rflx 2. Cervical cancer screening (Z12.4: Encounter for screening for malignant neoplasm of cervix) pap obtained without diffiuclty Ordered: triamcinolone, 40 mg = 1 mL, Injection, IntraMuscular, Once, Stop date 10/27/23 9:44:00 EDT, Routine, Start date 10/27/23 9:44:00 EDT, 10/27/23 9:44:00 EDT PAP w/ HPV and Genotype rflx 3. Breast cancer screening by mammogram (Z12.31: Encounter for screening mammogram for malignant neoplasm of breast) mammogram order provided 4. BMI 24.0-24.9, adult (Z68.24: Body mass index [BMI] 24.0-24.9, adult) BMI education complete Ordered: triamcinolone, 40 mg = 1 mL, Injection, IntraMuscular, Once, Stop date 10/27/23 9:44:00 EDT, Routine, Start date 10/27/23 9:44:00 EDT, 10/27/23 9:44:00 EDT PAP [id number] w/ HPV and Genotype rflx 5. Non-smoker (Z78.9: Other specified health status) continue not smoking Ordered: triamcinolone, 40 mg = 1 mL, Injection, IntraMuscular, Once, Stop date 10/27/23 9:44:00 EDT, Routine, Start date 10/27/23 9:44:00 EDT, 10/27/23 9:44:00 EDT PAP [id number] w/ HPV and Genotype rflx Follow-up No [...] virus vaccine, inactivated 04/28/2022 Recorded SARS-CoV-2 (COVID-19) [id number].[id number] 04/28/2022 (more content not included)... [facility] Comment on above: Result Comment: Elec tronically Signed By: Radha Farley.br\Date and Time Signed: 11/02/23 08:55 EDT PAP [id number] 10-31-2023 Cytology report Cyto stain Doc (Cvx/Vag) Note Invalid Interpretation Code [facility] Comment on above: Result Comment: TEST S RESULT FLAG UNITS REF RANGE LAB Clinician Provided Cytology Information Source.............Cervix No. of containers..01 ThinPrep Vial DIAGNOSIS: 01 NEGATIVE FOR INTRAEPITHELIAL LESION OR MALIGNANCY. Specimen adequacy: 01 Satisfactory for evaluation. Endocervical and/or squamous metaplastic cells (endocervical component) are present. Performed by: David Mcdaniel, Hr Recruiter (ASCP) . 01 Note: Note 02 The Pap [...] <-Panic Low,>-Panic High,A-Abnormal,AA-Critical Abnormal Performed at: [address] [facility] [address] [place] [address] Alex Pascual MD, 02 [facility] [address] [address] Catherine Pearson MD, Performed By: #### 1 [id number] #### [facility] [address] [place] [address] HPV 16+18+31+33+35+39+ 45+51+52+56+58+59+ 66+68 DNA Probe+sig amp Ql (Cvx) Negative Invalid Interpretation Code Negative [facility] Comment on above: Result Comment: This nucleic acid amplification test detects fourteen high-risk HPV types (16,18,31,33,35,39,45,51,52,56,58,59,66,68) without differentiation. Performed at: [facility] [address] [place], [place] [id number] MD Ankur Johnson Performed at: =G [facility] [address] [id number] MD Michel Alexander Performed By: #### 1 [id number] #### [facility] [address] [place] [address] PAP [id number] 10-27-2023 Gynecological Body Site CERVIX [facility] Comment on above: Performed By: #### 1 [id number] #### [facility] [address] [place] [address] Physician Orderon 10-27-2023 Physician Order [id number]#1.00T IFF [facility] Family Medicine Office/Clini c Noteon 10-14-2023 Family Medicine Office/Clinic Note HPI Staff Elida is a 47 year female presenting for 1 month follow up GERI 09/11/23 pelvic pain, pelvic u/s ordered through [facility], started omeprazole Pt states intermittently will get [...] appointment to follow up on migration of filadriannee clip. RTC for well woman exam 3. [...] virus vaccine, inactivated 04/28/2022 Recorded SARS-CoV-2 (COVID-19) mRNAMUL.[id number] 04/28/2022 Recorded SARS-CoV-2 (COVID-19) mRNA BNT-162b2 vax [...] influenza virus vaccine, inactivated 04/24/2013 Recorded [facility] Comment on above: Result Comment: Elec tronically Signed By: Radha Farley\.br\Date and Time Signed: 10/14/23 16:50 EDT Physician Referralon 024 Physician Referral [id number]#1.00 TIFF [facility] RAD - Ultrasound Reporton RAD - Ultrasound Report [id number]#1.00T IFF [facility] Ambulatory Visit Summaryon 0 09-11-2023 Ambulatory Visit [...] 4:40 PM EDT With: Radha Farley Where: [facility] [address] [place] [address]- \.br\ Medications\.br\ What How Much When Why Instructions\.br \ New omeprazole (omeprazole 40 mg Cap-DR) 1 Capsules By Mouth Every day Pelvic pain Abnormal menstruation GERD (gastroesophagea l reflux disease) BMI 23.0-23.9, adult Refills: 3 Pickup at [facility] #[id number]\.br\ Unchanged calcium citrate (calcium citrate Tab) 500 [...] knee surgery nausea/ vomiting \.br\ Pharmacy Information\.br\ [facility][id number]: [address], [place] [id number] [phone]\.br\ Allergies\.br\ No Known Medication Allergies\.br\ Problems\.br\ Ongoing [...] for choosing us for your care.\.br\ \.br\ [facility] Family Medicine Office/Clini c Noteon 09-11-2023 Family Medicine Office/Clinic Note Chief Complaint ED follow up HPI Staff Elida is a 47 year old female presenting for ER follow up ER followup: Hospital: [facility] Visit date: 09/02/23 Symptoms the patient presented [...] floating ovary. will order pelvic u/s at [facility]. RTC 4 weeks. may consider referral to Dr. Palomares if u/s is abnormal Ordered: omeprazole, 40 mg = 1 cap(s), Oral, Daily, # 90 cap(s), Refills(s) 3, Pharmacy: [facility] #[id number], 165, cm, 09/11/23 11:19:00 EDT, Height/Length Dosing, 64.8, kg, 09/11/23 11:19:00 EDT, Weight Dosing 2. Abnormal menstruation (N92.6: Irregular menstruation, unspecified) periods every 2 weeks Ordered: omeprazole, 40 mg = 1 cap(s), Oral, Daily, # 90 cap(s), Refills(s) 3, Pharmacy: [facility] #[id number], 165, cm, 09/11/23 11:19:00 EDT, Height/Length Dosing, [...] Daily, # 90 cap(s), Refills(s) 3, Pharmacy: [facility] #[id number], 165, cm, 09/11/23 11:19:00 EDT, Height/Length Dosing, 64.8, kg, 09/11/23 11:19:00 EDT, Weight Dosing 4. BMI 23.0-23.9, adult (Z68.23: Body mass index [BMI] 23.0-23.9, adult) BMI education complete Ordered: omeprazole, 40 mg = 1 cap(s), Oral, Daily, # 90 cap(s), Refills(s) 3, Pharmacy: [facility] #[id number], 165, cm, 09/11/23 11:19:00 EDT, Height/Length Dosing, [...] virus vaccine, inactivated 04/28/2022 Recorded SARS-CoV-2 (COVID-19) [id number].ORD![id number] 04/28/2022 Recorded SARS-CoV-2 (COVID-19) mRNA BNT-162b2 vax 05/21/2021 Recorded influenza virus vaccine, inactivated 03/08/2021 Recorded SARS-CoV-2 (COVID-19) mRNA BNT-162b2 vax 09/20/2020 Recorded SARS-CoV-2 (COVID-19) mRNA BNT-162b2 vax 08/30/2020 Recorded influenza virus vaccine, inactivated 02/08/2020 Recorded influenza virus vaccine, inacti (more content not included)... [facility] Comment on above: Result Comment: Elec tronically Signed By: Radha Farley\.br\Date and Time Signed: 09/11/23 11:42 EDT Physician Orderon 09-11-2023 Physician Order [id number] IFF [facility] ED Note-Physicianon 09-03-19 ED Note-Physician [id number]#1.00T IFF [facility] Lab Reportson 07-13-2023 Lab Reports [id number] IFF [facility] Ambulatory Visit Summaryon 0 06-10-2023 Ambulatory Visit Summary ELIDA CALVILLO :1975 Visit Date:06/10/2023 Ambulatory Visit Instructions Your Diagnosis Ureteral stone Kidney stones Asymptomatic microscopic hematuria Tests Performed Urnls Dip Stick Auto w/o Microscopy POC [id number] US Renal -- Results Pending -- XR [...] DIAMOND, Romi Sinclair Where: [facility] [place] [employer] 06-10-2023 Forms [id number] FF [facility] Patient Educationon 06-10-19 24 Patient Education Nephrology [...] ? 8 oz (237 mL) of milk, uzjrruq-exnbmnxykrgx-nn iry milk, and calcium-fortifiedfruit juice. Calcium-fortified means [...] Spinach (cooked), rhubarb, beets, sweet potatoes, and Chilean chard. ? Peanuts. ? Potato chips, haitian fries, and baked potatoes with skin on. ? Nuts and nut products. ? Chocolate. ? If you regularly take a diuretic medicine, make sure to eat at least 1 or 2 servings of fruits or vegetables that are high in potassium each day. These include: ? Avocado. ? Banana. ? [place], prune, carrot, or tomato juice. ? Baked [...] fish oil, or vitamin B6. ? Take iolq-lbk-ctlcaqe and prescription medicines only as told by your health care provider. These include supplements. What foods sh (more content not included)... [facility] 06-10-2023 Screens [id number] [facility] [id number] FF Mery Hilliard [facility] Urology Office/Clinic Noteon 06-10-2023 Urology Office/Clinic Note [...] hx - mother with stones. Presented to [facility] ER on 05/27/22- CT AP with IV/PO contrast: 5 mm right UPJ stone, 1 mm right UVJ stone, mild hydronephrosis and delayed nephrogram. 3 mm left UVJ stone without left hydronephrosis or ureter. Additional 2 to 3 mm nonobstructing renal calculi. OSCAR 06/30/22 - personal review: mild R [...] stone, 3.5 mm left stone KUB 05/18/23 [facility] - 5mm stone in RLP. 1cm stone in LLP. Personal review: stones are overestimated in size, likely multiple small stones. OSCAR 05/18/23 [facility] - 1.4cm stone in L renal pelvis [...] Urnls Dip Stick Auto w/o Microscopy POC 26810 US Renal XR Abdomen 1 View 2. [...] the patient (more content not included)... [facility] Comment on above: Result Comment: Elec tronically Signed By: Romi Sarmiento MD\.br\Date and Time Signed: 06/10/23 14:46 EST\.br\Electronically Co-Signed By: Odalys Hermosillo\.br\Date and Time Co-Signed: 06/10/23 09:52 EST RAD - MISCon 05-28-2023 RAD - MISC [id number] IFF [facility] RAD - Ultrasound Reporton RAD - Ultrasound Report [id number] IFF [facility] PTH INTACTon 09-05-2022 PTH, Intact 16 pg/mL Normal 15-65 [facility] Comment on above: Performed By: #### E RUR, UMICRO #### [facility] [address] [place] [address] Dr. Sandra Castano URIC ACID SERUMon 09-04-2022 Urate [Mass/Vol] 4.4 mg/dL Normal 2.6-6.0 [facility] Comment on above: Performed By: #### L IPA, CMP #### [facility] [address] [address] [address] Sandra Castano US KIDNEYSon 08-31-2022 US KIDNEYS US KIDNEYS EXAM DATE: 08/30/2022 7:55 AM MDT COMPARISON: Ultrasound kidney is 06/30/2022, 06/06/2022; CT abdomen and pelvis 07/10/2022. INDICATION: Kidney stones. History of stone and stent removal. TECHNIQUE: Real-time ultrasound scanning of the kidneys and bladder was performed by the council member. Systems Development Consultant static images are submitted for review. FINDINGS: [...] MAISHA ESTRADA Date: 2022-08-31 13:15 Normal [facility] CALCULI, URINARYon 3 2,8 Dihydroxyadenine Normal [facility] Comment on above: Performed By: #### C ALCULI #### [facility] [address] [place], [place] [address] Dr. Sandra Castano Ammonium Acid Urate Normal [facility] Comment on above: Performed By: #### C ALCULI #### [facility] [address] [address] [address] Sandra Castano Bilirubin Ql (U) Normal [facility] Comment on above: Performed By: #### C ALCULI #### [facility] [address] [address] [address] Sandra Castano Ca Oxalate Dihydrate 80 % Normal [facility] Comment on above: Performed By: #### C ALCULI #### [facility] [address] [address] [address] Sandra Castano CaHPO4 (Brushite) [facility] Comment on above: Performed By: #### C ALCULI #### [facility] [address] [place] [address] Dr. Sandra Castano Calcium Bilirubinate Normal [facility] Comment on above: Performed By: #### C ALCULI #### [facility] [address] [place] [address] Dr. Snadra Castano Calcium Carbonate [facility] Comment on above: Performed By: #### C ALCULI #### [facility] [address] [place] [address] Dr. Sandra Castano Calcium Oxalate Monohydrate 20 % [facility] Comment on above: Performed By: #### C ALCULI #### [facility] [address] [place] [address] Dr. Sandra Castano Calcium Palmitate Normal [facility] Comment on above: Performed By: #### C ALCULI #### [facility] [address] [place] [address] Dr. Sandra Castano Calcium Phosphate Normal [facility] Comment on above: Performed By: #### C ALCULI #### [facility] [address] [place] [address] Dr. Sandra Castano Calcium Stearate Normal [facility] Comment on above: Performed By: #### C ALCULI #### [facility] [address] [place] [address] Dr. Sandra Castano Carbonate Apatite Normal [facility] Comment on above: Performed By: #### C ALCULI #### [facility] [address] [place] [address] Dr. Sandra Castano Cellular Material Normal [facility] Comment on above: Performed By: #### C ALCULI #### [facility] [address] [address] [address] Sandra Castano Cholesterol [facility] Comment on above: Performed By: #### C ALCULI #### [facility] [address] [address] [address] Sandra Castano Color (U) Hahn Normal [facility] Comment on above: Performed By: #### C ALCULI #### [facility] [address] [address] [address] Sandra Castano Comment [facility] Comment on above: Performed By: #### C ALCULI #### [facility] [address] [address] [address] Sandra Castano Comment Comment [facility] Comment on above: Result Comment: Calc ulus received wet. Wet calculi must be dried before analysis, which delays reporting of results. Leaving calculi wet (such as water, saline, blood, urine) may lead to changes in composition. Performed By: #### C ALCULI #### [facility] [address] [address] [address] Sandra Castano Comment: Comment Normal [facility] Comment on above: Result Comment: Cindi lozano questions regarding Calculi Analysis [facility] at: [phone]. Performed By: #### C ALCULI #### [facility] [address] [place] [address] Dr. Sandra Castano Composition Comment [facility] Comment on above: Result Comment: Perc entage (Represents the % composition) Performed By: #### C ALCULI #### [facility] [address] [address] [address] Sandra Castano Cystine [facility] Comment on above: Performed By: #### C ALCULI #### [facility] [address] [place] [address] Dr. Sandra Castano Disclaimer: Comment [facility] Comment on above: Result Comment: This test was developed and its performance characteristics determined by [facility]. It has not been cleared or approved by the Food and Drug Administration. Performed By: #### C ALCULI #### [facility] [address] [place] [address] Dr. Sandra Castano Dried Blood [facility] Comment on above: Performed By: #### C ALCULI #### [facility] [address] [place] [address] Dr. Sandra Castano Drug or Metabolite Normal [facility] Comment on above: Performed By: #### C ALCULI #### [facility] [address] [place] [address] Dr. Sandra Castano Hydroxyapatite Normal [facility] Comment on above: Performed By: #### C ALCULI #### [facility] [address] [place] [address] Dr. Sandra Castano Mg NH4 PO4 (Struvite) [facility] Comment on above: Performed By: #### C ALCULI #### [facility] [address] [place] [address] Dr. Sandra Castano MgHPO4 ([place]ite) [facility] Comment on above: Performed By: #### C ALCULI #### [facility] [address] [place] [address] Dr. Sandra Castano Other component(s) Normal [facility] Comment on above: Performed By: #### C ALCULI #### [facility] [address] [place] [address] Dr. Sandra Castano PDF . Normal [facility] [place] [facility] Comment on above: Performed By: #### C ALCULI #### [facility] [address] [place] [address] Dr. Sandra Castano Photo Comment [facility] Comment on above: Result Comment: Phot ograph will follow under a separate cover Performed By: #### C ALCULI #### [facility] [address] [place] [address] Dr. Sandra Castano Please note: Comment [facility] Comment on above: Result Comment: Calc chica report will follow via computer, mail or director recreation center delivery. Performed By: #### C ALCULI #### [facility] [address] [address] [address] Sandra Castano Size 2x1 Normal [facility] Comment on above: Result Comment: Mult iple pieces received. Dimensions of the largest piece reported. Performed By: #### C ALCULI #### [facility] [address] [address] [address] Sandra Castano Sodium Acid Urate Normal [facility] Comment on above: Performed By: #### C ALCULI #### [facility] [address] [address] [address] Sandra Castano Source Comment Normal [facility] Comment on above: Result Comment: Righ t Ureter Performed By: #### C ALCULI #### [facility] [address] [address] [address] Sandra Castano Triamterene [facility] Comment on above: Performed By: #### C ALCULI #### [facility] [address] [address] [address] Sandra Castano Uric Acid [facility] Comment on above: Performed By: #### C ALCULI #### [facility] [address] [address] [address] Sandra Castano Uric Acid Dihydrate [facility] Comment on above: Performed By: #### C ALCULI #### [facility] [address] [address] [address] Sandra Castano Weight 9 mg Normal [facility] Comment on above: Performed By: #### C ALCULI #### [facility] [address] [address] [address] Sandra Castano Xanthine [facility] Comment on above: Performed By: #### C ALCULI #### [facility] [address] [address] [address] Sandra Castano PREG HCG QUALon 07-30-2022 , QUAL Negative Normal NEGATIVE [facility] Comment on above: Performed By: #### C ALCULI #### [facility] [address] [address] [address] Sandra Castano PROF CHEM 8 (BAS METB)on Anion gap [Moles/Vol] 12.7 mmol/L Normal [facility] Comment on above: Performed By: #### C ALCULI #### [facility] [address] [place] [address] Dr. Sandra Castano Calcium [Mass/Vol] 9.6 mg/dL Normal 8.5-10.1 [facility] Comment on above: Performed By: #### C ALCULI #### [facility] [address] [address] [address] Sandra Castano Chloride [Moles/Vol] 101 mmol/L Normal 98-107 [facility] Comment on above: Performed By: #### C ALCULI #### [facility] [address] [place] [address] Dr. Sandra Castnao CO2 [Moles/Vol] 30.4 mmol/L Normal 21.0-32.0 [facility] Comment on above: Performed By: #### C ALCULI #### [facility] [address] [place] [address] Dr. Sandra Castaon Creatinine [Mass/Vol] 0.65 mg/dL Normal 0.55-1.02 [facility] Comment on above: Performed By: #### C ALCULI #### [facility] [address] [place] [address] Dr. Sandra Castano EGFR-AF COMORAN >60 Normal >=60 [facility] Comment on above: Performed By: #### C ALCULI #### [facility] [address] [place] [address] Dr. Sandra Castano EGFR-NON AF COMORAN >60 Normal >=60 [facility] Comment on above: Performed By: #### C ALCULI #### [facility] [address] [address] [address] Sandra Castano Glucose [Mass/Vol] 121 mg/dL Critically high 74-106 [facility] Comment on above: Performed By: #### C ALCULI #### [facility] [address] [place] [address] Dr. Sandra Castano Potassium [Moles/Vol] 4.1 mmol/L Normal 3.5-5.1 [facility] Comment on above: Performed By: #### C ALCULI #### [facility] [address] [place] [address] Dr. Sandra Castano Sodium [Moles/Vol] 140 mmol/L Normal 136-145 [facility] Comment on above: Performed By: #### C ALCULI #### [facility] [address] [place] [address] Dr. Sandra Castano Urea nitrogen [Mass/Vol] 17.0 mg/dL Normal 7.0-18.0 [facility] Comment on above: Performed By: #### C ALCULI #### [facility] [address] [place] [address] Dr. Sandra Castano Urea nitrogen/Creatinin e [Mass ratio] 26.2 mg/mg Normal [facility] Comment on above: Performed By: #### C ALCULI #### [facility] [address] [place] [address] Dr. Sandra Castano PROTIMEon 07-18-2022 INR Coag (PPP) [Relative time] 0.97 {INR} Normal [facility] Comment on above: Performed By: #### L IPA, CMP #### [facility] [address] [place] [address] Dr. Sandra Castano INR GUIDELINES SEE BELOW Normal [facility] Comment on above: Result Comment: DUNIA RED INR: 2.0 - 3.0 CONDITIONS NOT LISTED BELOW 2.5 - 3.5 FOR PROSTHETIC HEART VALVE REPLACEMENT 2.5 - 3.5 RECURRENT THROMBOSIS Performed By: #### L IPA, CMP #### [facility] [address] [place] [address] Dr. Sandra Castano PT Coag (PPP) [Time] 10.3 s Normal 9.0-11.6 [facility] Comment on above: Performed By: #### L IPA, CMP #### [facility] [address] [place] [address] Dr. Sandra Castano PTTon 07-18-2022 aPTT Coag (Bld) [Time] 29.1 s Normal 22.3-36.2 [facility] Comment on above: Performed By: #### L IPA, [facility] #### [facility] [address] [place] [address] ABD/PELVIS WO CONon [...] by: ETTA CEDEÑO Date: 2022-07-10 13:31 Normal [facility] US KIDNEYSon 06-30-2022 US KIDNEYS EXAMINATION: US KIDN EYS HISTORY: Kidney stone , hematuria COMPARISON: Ultrasound [...] by: ETTA CEDEÑO Date: 2022-06-30 16:31 Normal [facility] XR KUB 1 VIEWon 06-30-2022 XR [...] by: ETTA CEDEÑO Date: 2022-06-30 17:20 Normal [facility] US KIDNEYSon 06-06-2022 US KIDNEYS EXAMINATION: US KIDSammi S HISTORY: Kidney stone COMPARISON: CT abdomen pelvis [...] by: ETTA CEDEÑO Date: 2022-06-06 12:32 Normal [facility] XR KUB 1 VIEWon 06-06-2022 XR [...] by: ETTA CEDEÑO Date: 2022-06-06 12:36 Normal [facility] CT ABD/PELV W CONon 05-28-20 22 [...] MEGHA RESENDIZ Date: 2022-05-27 23:14 Normal [facility] CBC AUTO DIFFon 05-27-2022 BASO # 0.0 103/ul Normal 0.0-0.1 [facility] Comment on above: Performed By: #### C ALCULI #### [facility] [address] [place] [address] Dr. Sandra Castano Basophils/100 WBC (Bld) 0.4 % Normal 0.2-2.0 [facility] Comment on above: Performed By: #### C ALCULI #### [facility] [address] [address] [address] Sandra Castano EO # 0.0 103/ul Normal 0.0-0.7 [facility] Comment on above: Performed By: #### C ALCULI #### [facility] [address] [place] [address] Dr. Sandra Castano Eosinophils/100 WBC (Bld) 0.1 % Critically low 0.9-7.0 [facility] Comment on above: Performed By: #### C ALCULI #### [facility] [address] [address] [address] Sandra Castano Erythrocyte distribution width (RBC) [Ratio] 13.0 % Normal 11.0-15.0 [facility] Comment on above: Performed By: #### C ALCULI #### [facility] [address] [address] [address] Sandra Castano Hematocrit (Bld) [Volume fraction] 37.1 % Normal 36.0-48.0 [facility] Comment on above: Performed By: #### C ALCULI #### [facility] [address] [address] [address] Sandra Castano Hemoglobin (Bld) [Mass/Vol] 12.1 g/dL Normal 12.0-16.0 [facility] Comment on above: Performed By: #### C ALCULI #### [facility] [address] [place] [address] Dr. Sandra Castano IG # 0.05 10e3/ul Critically high 0.00-0.03 [facility] Comment on above: Performed By: #### C ALCULI #### [facility] [address] [place] [address] Dr. Sandra Castano IG % 0.6 % Critically high 0.0-0.5 [facility] Comment on above: Performed By: #### C ALCULI #### [facility] [address] [place] [address] Dr. Sandra Castano LYMPH # 1.0 103/ul Critically low 1.2-3.8 [facility] Comment on above: Performed By: #### C ALCULI #### [facility] [address] [address] [address] Sandra Castano Lymphocytes/100 WBC (Bld) 11.7 % Critically low 20.5-60.0 [facility] Comment on above: Performed By: #### C ALCULI #### [facility] [address] [place] [address] Dr. Sandra Castano MANUAL DIFF REQ NO Normal [facility] Comment on above: Performed By: #### C ALCULI #### [facility] [address] [address] [address] Sandra Castano MCH (RBC) [Entitic mass] 28.8 pg Normal 26.7-34.0 [facility] Comment on above: Performed By: #### C ALCULI #### [facility] [address] [address] [address] Sandra Castano MCHC (RBC) [Mass/Vol] 32.6 g/dL Normal 29.9-35.2 [facility] Comment on above: Performed By: #### C ALCULI #### [facility] [address] [place] [address] Dr. Sandra Castano MCV (RBC) [Entitic vol] 88.3 fL Normal 81.0-99.0 [facility] Comment on above: Performed By: #### C ALCULI #### [facility] [address] [place] [address] Dr. Sandra Castano MONO # 0.4 103/ul Normal 0.3-0.8 [facility] Comment on above: Performed By: #### C ALCULI #### [facility] [address] [place] [address] Dr. Sandra Castano Monocytes/100 WBC (Bld) 4.2 % Normal 1.7-12.0 [facility] Comment on above: Performed By: #### C ALCULI #### [facility] [address] [place] [address] Dr. Sandra Castano NEUT # 6.8 103/ul Critically high 1.4-6.5 [facility] Comment on above: Performed By: #### C ALCULI #### [facility] [address] [address] [address] Sandra Castano Neutrophils/100 WBC (Bld) 83.0 % Critically high 43.0-75.0 [facility] Comment on above: Performed By: #### C ALCULI #### [facility] [address] [place] [address] Dr. Sandra Castano Platelet mean volume (Bld) [Entitic vol] 11.1 fL Normal 9.5-13.5 [facility] Comment on above: Performed By: #### C ALCULI #### [facility] [address] [place] [address] Dr. Sandra Castano PLT 312 103/ul Normal 150-450 [facility] Comment on above: Performed By: #### C ALCULI #### [facility] [address] [place] [address] Dr. Sandra Castano RBC 4.20 106/ul Normal 4.20-5.40 [facility] Comment on above: Performed By: #### C ALCULI #### [facility] [address] [place] [address] Dr. Sandra Castano WBC 8.2 103/ul Normal 4.0-11.0 [facility] Comment on above: Performed By: #### C ALCULI #### [facility] [address] [place] [address] Dr. Sandra Castano CULTURE URINEon 05-27-2022 CULTURE URINE Culture Observations : LIGHT GROWTH OF MIXED GENITAL NITISH. NO POTENTIAL PATHOGENS SEEN. Normal [facility] Comment on above: Performed By: #### L IPA, CMP #### [facility] [address] [place] [address] Dr. Sandra Castano ER URINE PROFILEon Bilirubin Ql (U) Negative Normal NEGATIVE [facility] Comment on above: Performed By: #### Gillian ACEVEDO UMICRO #### [facility] [address] [place] [address] Dr. Sandra Castano Clarity (U) CLEAR Normal CLEAR [facility] Comment on above: Performed By: #### Gillian ACEVEDO UMICRO #### [facility] [address] [place] [address] Dr. Sandra Castano Color (U) YELLOW Normal YELLOW [facility] Comment on above: Performed By: #### Gillian ACEVEDO UMICRO #### [facility] [address] [place] [address] Dr. Sandra GORDON A micrscopic examination will be performed if indicated. Normal [facility] Comment on above: Performed By: #### FLORENCIO DUBOISRO #### [facility] [address] [place] [address] Dr. Sandra Castano Glucose Ql (U) Negative Normal NEGATIVE [facility] Comment on above: Performed By: #### FLORENCIO DUBOISRO #### [facility] [address] [place] [address] Dr. Sandra Castano Hemoglobin Ql (U) Negative Normal NEGATIVE [facility] Comment on above: Performed By: #### FLORENCIO DUBOISRO #### [facility] [address] [place] [address] Dr. Sandra Castano Ketones Ql (U) 40 mg/dl Abnormal NEGATIVE [facility] Comment on above: Performed By: #### FLORENCIO DUBOISRO #### [facility] [address] [place] [address] Dr. Sandra Castano LEUKOCYTES Negative Normal NEGATIVE [facility] Comment on above: Performed By: #### FLORENCIO DUBOISRO #### [facility] [address] [place] [address] Dr. Sandra Castano Nitrite Ql (U) Negative Normal NEGATIVE [facility] Comment on above: Performed By: #### FLORENCIO DUBOISRO #### [facility] [address] [place] [address] Dr. Sandra Castano pH (U) 5.0 [pH] Normal 5-9 [facility] Comment on above: Performed By: #### FLORENCIO DUBOISRO #### [facility] [address] [place] [address] Dr. Sandra Castano Protein (U) [Mass/Vol] 30 mg/dL Abnormal NEGATIVE/ TRACE [facility] [facility] Comment on above: Performed By: #### FLORENCIO DUBOISRO #### [facility] [address] [place] [address] Dr. Sandra Castano SPEC GRAVITY >=1.030 Abnormal 1.005-<=1.025 [facility] Comment on above: Performed By: #### FLORENCIO DUBOISRO #### [facility] [address] [place] [address] Dr. Sandra Castano UR MICRO IND INDICATED Normal [facility] Comment on above: Performed By: #### E FLORENCIO ACEVEDORO #### [facility] [address] [place] [address] Dr. Sandra Castano Urobilinogen Qn (U) 0.2 {Tee'U}/dL Normal 0.2 - 1.0 [facility] Comment on above: Performed By: #### E FLORENCIO ACEVEDORO #### [facility] [address] [place] [address] Dr. Sandra Castano LIPASEon 05-27-2022 Lipase [Catalytic activity/Vol] 88.0 U/L Normal 73.0-393.0 [facility] Comment on above: Performed By: #### L IPA, CMP #### [facility] [address] [place] [address] Dr. Sandra Castano URon 05-27-2022 , QUAL Negative Normal NEGATIVE [facility] Comment on above: Performed By: #### P REGU #### [facility] [address] [place] [address] Dr. Sandra Castano PROF 14(COMP METB)on 022 Albumin [Mass/Vol] 4.0 g/dL Normal 3.4-5.0 [facility] Comment on above: Performed By: #### L IPA, CMP #### [facility] [address] [place] [address] Dr. Sandra Castano Albumin/Globulin [Mass ratio] 1.0 {ratio} Normal [facility] Comment on above: Performed By: #### L IPA, CMP #### [facility] [address] [place] [address] Dr. Sandra Castano ALP [Catalytic activity/Vol] 106 U/L Normal 46-116 [facility] Comment on above: Performed By: #### L IPA, CMP #### [facility] [address] [place] [address] Dr. Sandra Castano ALT [Catalytic activity/Vol] 24 U/L Normal 14-59 [facility] Comment on above: Performed By: #### L IPA, CMP #### [facility] [address] [address] [address] Sandra Castano Anion gap [Moles/Vol] 15.2 mmol/L Normal [facility] Comment on above: Performed By: #### L IPA, CMP #### [facility] [address] [address] [address] Sandra Castano AST [Catalytic activity/Vol] 21 U/L Normal 15-37 [facility] Comment on above: Performed By: #### L IPA, CMP #### [facility] [address] [address] [address] Sandra Castano Bilirubin [Mass/Vol] 0.4 mg/dL Normal 0.2-1.0 [facility] Comment on above: Performed By: #### L IPA, CMP #### [facility] [address] [address] [address] Sandra Castano Calcium [Mass/Vol] 9.6 mg/dL Normal 8.5-10.1 [facility] Comment on above: Performed By: #### L IPA, CMP #### [facility] [address] [address] [address] Sandra Castano Chloride [Moles/Vol] 99 mmol/L Normal 98-107 [facility] Comment on above: Performed By: #### L IPA, CMP #### [facility] [address] [address] [address] Sandra Castano CO2 [Moles/Vol] 25.2 mmol/L Normal 21.0-32.0 [facility] Comment on above: Performed By: #### L IPA, CMP #### [facility] [address] [address] [address] Sandra Castano Creatinine [Mass/Vol] 0.90 mg/dL Normal 0.55-1.02 [facility] Comment on above: Performed By: #### L IPA, CMP #### [facility] [address] [address] [address] Sandra Castano EGFR-AF COMORAN >60 Normal >=60 [facility] Comment on above: Performed By: #### L IPA, CMP #### [facility] [address] [address] [address] Sandra Castano EGFR-NON AF COMORAN >60 Normal >=60 [facility] Comment on above: Performed By: #### L IPA, CMP #### [facility] [address] [address] [address] Sandra Castano Globulin (S) [Mass/Vol] 4.2 g/dL Normal [facility] Comment on above: Performed By: #### L IPA, CMP #### [facility] [address] [address] [address] Sandra Castano Glucose [Mass/Vol] 171 mg/dL Critically high 74-106 [facility] Comment on above: Performed By: #### L IPA, CMP #### [facility] [address] [address] [address] Sandra Castano Potassium [Moles/Vol] 3.4 mmol/L Critically low 3.5-5.1 [facility] Comment on above: Performed By: #### L IPA, CMP #### [facility] [address] [address] [address] Sandra Castano Protein [Mass/Vol] 8.2 g/dL Normal 6.4-8.2 [facility] Comment on above: Performed By: #### L IPA, CMP #### [facility] [address] [address] [address] Sandra Castano Sodium [Moles/Vol] 136 mmol/L Normal 136-145 [facility] Comment on above: Performed By: #### L IPA, CMP #### [facility] [address] [address] [address] Sandra Castano Urea nitrogen [Mass/Vol] 14.0 mg/dL Normal 7.0-18.0 [facility] Comment on above: Performed By: #### L IPA, CMP #### [facility] [address] [address] [address] Sandra Castano Urea nitrogen/Creatinin e [Mass ratio] 15.6 mg/mg Normal [facility] Comment on above: Performed By: #### L IPA, CMP #### [facility] [address] [place] [address] Dr. Sandra Castano URINE MICROSCOPIC ONLYon BACTERIA MODERATE Abnormal NONE SEEN [facility] Comment on above: Performed By: #### Gillian ACEVEDO UMICRO #### [facility] [address] [place] [address] Dr. Sandra Castano Bacteria identified Cx Nom (U) INDICATED Normal [facility] Comment on above: Performed By: #### Gillian ACEVEDO UMICRO #### [facility] [address] [place] [address] Dr. Sandra Castano CAST NONE SEEN Normal NONE SEEN [facility] Comment on above: Performed By: #### Gillian ACEVEDO UMICRO #### [facility] [address] [place] [address] Dr. Sandra Castano Crystals LM Nom (Urine sed) NONE SEEN Normal NONE SEEN [facility] Comment on above: Performed By: #### Gillian ACEVEDO UMICRO #### [facility] [address] [place] [address] Dr. Sandra Castano Epithelial cells LM Ql (Urine sed) RARE Normal NONE SEEN /RARE [facility] Comment on above: Performed By: #### Gillian ACEVEDO UMICRO #### [facility] [address] [place] [address] Dr. Sandra Castano MUCOUS TRACE Abnormal NONE SEEN [facility] Comment on above: Performed By: #### Gillian ACEVEDO UMICRO #### [facility] [address] [place] [address] Dr. Sandra Castano RBC 2-5 Abnormal 0-2 [facility] Comment on above: Performed By: #### Gillian ACEVEDO UMICRO #### [facility] [address] [place] [address] Dr. Sandra Castano WBC 2-5 Abnormal NONE SEEN [facility] Comment on above: Performed By: #### Gillian ACEVEDO UMICRO #### [facility] [address] [place] [address] Dr. Sandra Castano YEAST PRESENT Abnormal NONE SEEN [facility] Comment on above: Performed By: #### E TAWANDA ACEVEDO #### [facility] [address] [place] [address] Dr. Sandra Castano XR ABD FLAT UP_PA [...] MAXIMILIANO TAYLOR Date: 2022-05-27 21:17 Normal [facility] VITAMIN B1 (THIAMINE)on 05-01 Vit. B1, Whole Blood 168.7 nmol/L Normal 66.5-200.0 [facility] Comment on above: Performed By: #### C ALCULI #### [facility] [address] [place] [address] Dr. Sandra Castano CBC AUTO DIFFon 05-07-2022 BASO # 0.1 103/ul Normal 0.0-0.1 [facility] Comment on above: Performed By: #### L IPA, CMP #### [facility] [address] [place] [address] Dr. Sandra Castano Basophils/100 WBC (Bld) 0.5 % Normal 0.2-2.0 [facility] Comment on above: Performed By: #### L IPA, CMP #### [facility] [address] [place] [address] Dr. Sandra Castano EO # 0.1 103/ul Normal 0.0-0.7 [facility] Comment on above: Performed By: #### L IPA, CMP #### [facility] [address] [place] [address] Dr. Sandra Castano Eosinophils/100 WBC (Bld) 1.3 % Normal 0.9-7.0 [facility] Comment on above: Performed By: #### L IPA, CMP #### [facility] [address] [place] [address] Dr. Sandra Castano Erythrocyte distribution width (RBC) [Ratio] 12.8 % Normal 11.0-15.0 [facility] Comment on above: Performed By: #### L IPA, CMP #### [facility] [address] [place] [address] Dr. Sandra Castano Hematocrit (Bld) [Volume fraction] 37.5 % Normal 36.0-48.0 [facility] Comment on above: Performed By: #### L IPA, CMP #### [facility] [address] [place] [address] Dr. Sandra Castano Hemoglobin (Bld) [Mass/Vol] 12.1 g/dL Normal 12.0-16.0 [facility] Comment on above: Performed By: #### L IPA, CMP #### [facility] [address] [place] [address] Dr. Sandra Castano IG # 0.03 10e3/ul Normal 0.00-0.03 [facility] Comment on above: Performed By: #### L IPA, CMP #### [facility] [address] [place] [address] Dr. Sandra Castano IG % 0.3 % Normal 0.0-0.5 [facility] Comment on above: Performed By: #### L IPA, CMP #### [facility] [address] [place] [address] Dr. Sandra Castano LYMPH # 2.6 103/ul Normal 1.2-3.8 [facility] Comment on above: Performed By: #### L IPA, CMP #### [facility] [address] [place] [address] Dr. Sandra Castano Lymphocytes/100 WBC (Bld) 28.8 % Normal 20.5-60.0 [facility] Comment on above: Performed By: #### L IPA, CMP #### [facility] [address] [place] [address] Dr. Sandra Castano MANUAL DIFF REQ NO Normal [facility] Comment on above: Performed By: #### L IPA, CMP #### [facility] [address] [place] [address] Dr. Sandra Castano MCH (RBC) [Entitic mass] 29.2 pg Normal 26.7-34.0 [facility] Comment on above: Performed By: #### L IPA, CMP #### [facility] [address] [place] [address] Dr. Sandra Castano MCHC (RBC) [Mass/Vol] 32.3 g/dL Normal 29.9-35.2 [facility] Comment on above: Performed By: #### L IPA, CMP #### [facility] [address] [place] [address] Dr. Sandra Castano MCV (RBC) [Entitic vol] 90.4 fL Normal 81.0-99.0 [facility] Comment on above: Performed By: #### L IPA, CMP #### [facility] [address] [place] [address] Dr. Sandra Castano MONO # 0.5 103/ul Normal 0.3-0.8 [facility] Comment on above: Performed By: #### L IPA, CMP #### [facility] [address] [place] [address] Dr. Sandra Castano Monocytes/100 WBC (Bld) 5.4 % Normal 1.7-12.0 [facility] Comment on above: Performed By: #### L IPA, CMP #### [facility] [address] [place] [address] Dr. Sandra Castano NEUT # 5.8 103/ul Normal 1.4-6.5 [facility] Comment on above: Performed By: #### L IPA, CMP #### [facility] [address] [place] [address] Dr. Sandra Castano Neutrophils/100 WBC (Bld) 63.7 % Normal 43.0-75.0 [facility] Comment on above: Performed By: #### L IPA, CMP #### [facility] [address] [address] [address] Sandra Castano Platelet mean volume (Bld) [Entitic vol] 11.0 fL Normal 9.5-13.5 [facility] Comment on above: Performed By: #### L IPA, CMP #### [facility] [address] [address] [address] Sandra Castano PLT 370 103/ul Normal 150-450 [facility] Comment on above: Performed By: #### L IPA, CMP #### [facility] [address] [address] [address] Sandra Castano RBC 4.15 106/ul Critically low 4.20-5.40 [facility] Comment on above: Performed By: #### L IPA, CMP #### [facility] [address] [address] [address] Sandra Castano WBC 9.1 103/ul Normal 4.0-11.0 [facility] Comment on above: Performed By: #### L IPA, CMP #### [facility] [address] [address] [address] Sandra Castano FERRITINon 05-07-2022 Ferritin [Mass/Vol] 180.0 ng/mL Critically high 6.2-137.0 [facility] Comment on above: Performed By: #### L IPA, CMP #### [facility] [address] [address] [address] Sandra Castano IRON AND TIBCon 05-07-2022 % SATURATION 19.4 % Normal [facility] Comment on above: Performed By: #### L IPA, CMP #### [facility] [address] [address] [address] Sandra Castano Iron [Mass/Vol] 43.0 ug/dL Critically low 50.0-170.[address] [facility] Comment on above: Performed By: #### L IPA, CMP #### [facility] [address] [address] [address] Sandra Castano TIBC DIRECT 222.0 ug/dL Critically low 250.0-450.0 [facility] Comment on above: Performed By: #### L IPA, CMP #### [facility] [address] [address] [address] Sandra Castano MAGNESIUMon 05-07-2022 Magnesium [Mass/Vol] 1.8 mg/dL Normal 1.8-2.4 [facility] Comment on above: Performed By: #### M G, CMP, PHOS #### [facility] [address] [address] [address] Sandra Castano PHOSPHORUSon 05-07-2022 Phosphate [Mass/Vol] 4.4 mg/dL Normal 2.6-4.7 [facility] Comment on above: Performed By: #### M G, CMP, PHOS #### [facility] [address] [place] [address] Dr. Sandra Castano PROF 14(COMP METB)on 022 Albumin [Mass/Vol] 3.6 g/dL Normal 3.4-5.0 [facility] Comment on above: Performed By: #### M G, CMP, PHOS #### [facility] [address] [place] [address] Dr. Sandra Castano Albumin/Globulin [Mass ratio] 0.9 {ratio} Normal [facility] Comment on above: Performed By: #### M G, CMP, PHOS #### [facility] [address] [place] [address] Dr. Sandra Castano ALP [Catalytic activity/Vol] 106 U/L Normal 46-116 [facility] Comment on above: Performed By: #### M G, CMP, PHOS #### [facility] [address] [place] [address] Dr. Sandra Castano ALT [Catalytic activity/Vol] 61 U/L Critically high 14-59 [facility] Comment on above: Performed By: #### M G, CMP, PHOS #### [facility] [address] [place] [address] Dr. Sandra Castano Anion gap [Moles/Vol] 12.2 mmol/L Normal [facility] Comment on above: Performed By: #### M G, CMP, PHOS #### [facility] [address] [address] [address] Sandra Castano AST [Catalytic activity/Vol] 35 U/L Normal 15-37 [facility] Comment on above: Performed By: #### M G, CMP, PHOS #### [facility] [address] [address] [address] Sandra Castano Bilirubin [Mass/Vol] 0.5 mg/dL Normal 0.2-1.0 [facility] Comment on above: Performed By: #### M G, CMP, PHOS #### [facility] [address] [address] [address] Sandra Castano Calcium [Mass/Vol] 9.7 mg/dL Normal 8.5-10.1 [facility] Comment on above: Performed By: #### M G, CMP, PHOS #### [facility] [address] [place] [address] Dr. Sanrda Castano Chloride [Moles/Vol] 101 mmol/L Normal 98-107 [facility] Comment on above: Performed By: #### M G, CMP, PHOS #### [facility] [address] [address] [address] Sandra Castano CO2 [Moles/Vol] 30.9 mmol/L Normal 21.0-32.0 [facility] Comment on above: Performed By: #### M G, CMP, PHOS #### [facility] [address] [address] [address] Sandra Castano Creatinine [Mass/Vol] 0.74 mg/dL Normal 0.55-1.02 [facility] Comment on above: Performed By: #### M G, CMP, PHOS #### [facility] [address] [place] [address] Dr. Sandra Castano EGFR-AF COMORAN >60 Normal >=60 [facility] Comment on above: Performed By: #### M G, CMP, PHOS #### [facility] [address] [address] [address] Sandra Castano EGFR-NON AF COMORAN >60 Normal >=60 [facility] Comment on above: Performed By: #### M G, CMP, PHOS #### [facility] [address] [address] [address] Sandra Castano Globulin (S) [Mass/Vol] 3.9 g/dL Normal [facility] Comment on above: Performed By: #### M G, CMP, PHOS #### [facility] [address] [address] [address] Sandra Castano Glucose [Mass/Vol] 98 mg/dL Normal 74-106 [facility] Comment on above: Performed By: #### M G, CMP, PHOS #### [facility] [address] [address] [address] Sandra Castano Potassium [Moles/Vol] 4.1 mmol/L Normal 3.5-5.1 [facility] Comment on above: Performed By: #### M G, CMP, PHOS #### [facility] [address] [place] [address] Dr. Sandra Castano Protein [Mass/Vol] 7.5 g/dL Normal 6.4-8.2 [facility] Comment on above: Performed By: #### M G, CMP, PHOS #### [facility] [address] [place] [address] Dr. Sandra Castano Sodium [Moles/Vol] 140 mmol/L Normal 136-145 [facility] Comment on above: Performed By: #### M G, CMP, PHOS #### [facility] [address] [address] [address] Sandra Castano Urea nitrogen [Mass/Vol] 7.0 mg/dL Normal 7.0-18.0 [facility] Comment on above: Performed By: #### M G, CMP, PHOS #### [facility] [address] [place] [address] Dr. Sandra Castano Urea nitrogen/Creatinin e [Mass ratio] 9.5 mg/mg Normal [facility] Comment on above: Performed By: #### M G, CMP, PHOS #### [facility] [address] [address] [address] Sandra Castano VIT B12 AND FOLATEon 022 Cobalamin (Vitamin B12) [Mass/Vol] 1075.0 pg/mL Critically high 193.0-986.0 [facility] Comment on above: Performed By: #### L IPA, CMP #### [facility] [address] [place] [address] Dr. Sandra Castano FOLATE 9.80 ng/mL Normal 8.60-58.90 [facility] Comment on above: Performed By: #### L IPA, CMP #### [facility] [address] [place] [address] Dr. Sandra Castano VITAMIN D 25 OHon 05-07-2022 VIT D 25-OH 96.8 ng/mL Normal [facility] Comment on above: Performed By: #### L IPA, CMP #### [facility] [address] [place] [address] Dr. Sandra Castano VIT D RANGES SEE BELOW Normal [facility] Comment on above: Result Comment: <20 ng/mL Vit D deficient 20 - <30 ng/mL Vit D insufficient 30 - 100 ng/mL Vit D sufficient >100 ng/mL Potential Toxicity Performed By: #### L IPA, CMP #### [facility] [address] [place] [address] Dr. Sandra Castano BLOOD BANKOrdered By: Latrice Lopez on 03-24-2022 ABO/Rh Interp AB NEG Invalid Interpretation Code [facility] BB Subsection ABSC Gel Interp Negative (03/24/22 8:33 AM) Normal [facility] BB Subsection VITAMIN B1 (THIAMINE)on 12-30 Vit. B1, Whole Blood 154.0 nmol/L Normal 66.5-200.0 [facility] Comment on above: Performed By: #### V ITB1T #### [facility] [address] [place] [address] Dr. Sandra Castano VIT D 25-OH [employer] 2021 Vitamin D, 25-Hydroxy 98.0 ng/mL Normal 30.0-100.0 [facility] Comment on above: Result Comment: Wanda min D deficiency has been defined by the [place] of [employer] and an Endocrine Society practice guideline as a level of serum 25-OH vitamin D less than 20 ng/mL (1,2). The Endocrine Society went on to further define vitamin D insufficiency as a level between 21 and 29 ng/mL (2). 1. IOM ([place] of [employer]). 2010. Dietary reference intakes for calcium and D. [place]: The National Academies Press. 2. [place] MF, Maya [place], Kesha OLGUIN, et al. Evaluation, treatment, and prevention of vitamin D deficiency: an Endocrine Society clinical practice guideline. JCEM. 2010; 96(7):1911-30. Performed By: #### L IPA, CMP #### [facility] [address] [place] [address] Dr. Sandra Castano CBC AUTO DIFFon 01-13-2022 BASO # 0.0 103/ul Normal 0.0-0.1 [facility] Comment on above: Performed By: #### L IPA, CMP #### [facility] [address] [place] [address] Dr. Sandra Castano Basophils/100 WBC (Bld) 0.5 % Normal 0.2-2.0 [facility] Comment on above: Performed By: #### L IPA, CMP #### [facility] [address] [place] [address] Dr. Sandra Castano EO # 0.1 103/ul Normal 0.0-0.7 [facility] Comment on above: Performed By: #### L IPA, CMP #### [facility] [address] [place] [address] Dr. Sandra Castano Eosinophils/100 WBC (Bld) 2.0 % Normal 0.9-7.0 [facility] Comment on above: Performed By: #### L IPA, CMP #### [facility] [address] [place] [address] Dr. Sandra Castano Erythrocyte distribution width (RBC) [Ratio] 13.7 % Normal 11.0-15.0 [facility] Comment on above: Performed By: #### L IPA, CMP #### [facility] [address] [place] [address] Dr. Sandra Castano Hematocrit (Bld) [Volume fraction] 39.9 % Normal 36.0-48.0 [facility] Comment on above: Performed By: #### L IPA, CMP #### [facility] [address] [place] [address] Dr. Sandra Castano Hemoglobin (Bld) [Mass/Vol] 13.0 g/dL Normal 12.0-16.0 [facility] Comment on above: Performed By: #### L IPA, CMP #### [facility] [address] [place] [address] Dr. Sandra Castano IG # 0.02 10e3/ul Normal 0.00-0.03 [facility] Comment on above: Performed By: #### L IPA, CMP #### [facility] [address] [place] [address] Dr. Sandra Castano IG % 0.3 % Normal 0.0-0.5 [facility] Comment on above: Performed By: #### L IPA, CMP #### [facility] [address] [place] [address] Dr. Sandra Castano LYMPH # 1.6 103/ul Normal 1.2-3.8 [facility] Comment on above: Performed By: #### L IPA, CMP #### [facility] [address] [place] [address] Dr. Sandra Castano Lymphocytes/100 WBC (Bld) 27.5 % Normal 20.5-60.0 [facility] Comment on above: Performed By: #### L IPA, CMP #### [facility] [address] [place] [address] Dr. Sandra Castano MANUAL DIFF REQ NO Normal [facility] Comment on above: Performed By: #### L IPA, CMP #### [facility] [address] [place] [address] Dr. Sandra Castano MCH (RBC) [Entitic mass] 29.2 pg Normal 26.7-34.0 [facility] Comment on above: Performed By: #### L IPA, CMP #### [facility] [address] [place] [address] Dr. Sandra Castano MCHC (RBC) [Mass/Vol] 32.6 g/dL Normal 29.9-35.2 [facility] Comment on above: Performed By: #### L IPA, CMP #### [facility] [address] [address] [address] Sandra Castano MCV (RBC) [Entitic vol] 89.7 fL Normal 81.0-99.0 [facility] Comment on above: Performed By: #### L IPA, CMP #### [facility] [address] [place] [address] Dr. Sandra Castano MONO # 0.4 103/ul Normal 0.3-0.8 [facility] Comment on above: Performed By: #### L IPA, CMP #### [facility] [address] [place] [address] Dr. Sandra Castano Monocytes/100 WBC (Bld) 6.6 % Normal 1.7-12.0 [facility] Comment on above: Performed By: #### L IPA, CMP #### [facility] [address] [place] [address] Dr. Sandra Castano NEUT # 3.7 103/ul Normal 1.4-6.5 [facility] Comment on above: Performed By: #### L IPA, CMP #### [facility] [address] [place] [address] Dr. Sandra Castano Neutrophils/100 WBC (Bld) 63.1 % Normal 43.0-75.0 [facility] Comment on above: Performed By: #### L IPA, CMP #### [facility] [address] [place] [address] Dr. Sandra Castano Platelet mean volume (Bld) [Entitic vol] 11.6 fL Normal 9.5-13.5 [facility] Comment on above: Performed By: #### L IPA, CMP #### [facility] [address] [place] [address] Dr. Sandra Castano PLT 256 103/ul Normal 150-450 [facility] Comment on above: Performed By: #### L IPA, CMP #### [facility] [address] [address] [address] Sandra Castano RBC 4.45 106/ul Normal 4.20-5.40 [facility] Comment on above: Performed By: #### L IPA, CMP #### [facility] [address] [place] [address] Dr. Sandra Castano WBC 5.9 103/ul Normal 4.0-11.0 [facility] Comment on above: Performed By: #### L IPA, CMP #### [facility] [address] [place] [address] Dr. Sandra Castano FERRITINon 01-13-2022 Ferritin [Mass/Vol] 108.0 ng/mL Normal 6.2-137.0 [facility] Comment on above: Performed By: #### C ALCULI #### [facility] [address] [place] [address] Dr. Sandra Castano IRON AND TIBCon 01-13-2022 % SATURATION 20.6 % Normal [facility] Comment on above: Performed By: #### C ALCULI #### [facility] [address] [place] [address] Dr. Sandra Castano Iron [Mass/Vol] 47.0 ug/dL Critically low 50.0-170.[address] [facility] Comment on above: Performed By: #### C ALCULI #### [facility] [address] [place] [address] Dr. Sandra Castano TIBC DIRECT 228.0 ug/dL Critically low 250.0-450.0 [facility] Comment on above: Performed By: #### C ALCULI #### [facility] [address] [place] [address] Dr. Sandra Castano MAGNESIUMon 01-13-2022 Magnesium [Mass/Vol] 1.7 mg/dL Critically low 1.8-2.4 [facility] Comment on above: Performed By: #### C ALCULI #### [facility] [address] [place] [address] Dr. Sandra Castano PHOSPHORUSon 01-13-2022 Phosphate [Mass/Vol] 3.4 mg/dL Normal 2.6-4.7 [facility] Comment on above: Performed By: #### L IPA, CMP #### [facility] [address] [address] [address] Sandra Castano PROF 14(COMP METB)on 022 Albumin [Mass/Vol] 3.8 g/dL Normal 3.4-5.0 [facility] Comment on above: Performed By: #### C ALCULI #### [facility] [address] [place] [address] Dr. Sandra Castano Albumin/Globulin [Mass ratio] 1.1 {ratio} Normal [facility] Comment on above: Performed By: #### C ALCULI #### [facility] [address] [place] [address] Dr. Sandra Castano ALP [Catalytic activity/Vol] 78 U/L Normal 46-116 [facility] Comment on above: Performed By: #### C ALCULI #### [facility] [address] [place] [address] Dr. Sandra Castano ALT [Catalytic activity/Vol] 34 U/L Normal 14-59 [facility] Comment on above: Performed By: #### C ALCULI #### [facility] [address] [place] [address] Dr. Sandra Castano Anion gap [Moles/Vol] 10.8 mmol/L Normal [facility] Comment on above: Performed By: #### C ALCULI #### [facility] [address] [place] [address] Dr. Sandra Castano AST [Catalytic activity/Vol] 20 U/L Normal 15-37 [facility] Comment on above: Performed By: #### C ALCULI #### [facility] [address] [place] [address] Dr. Sandra Castano Bilirubin [Mass/Vol] 0.5 mg/dL Normal 0.2-1.0 [facility] Comment on above: Performed By: #### C ALCULI #### [facility] [address] [place] [address] Dr. Sandra Castano Calcium [Mass/Vol] 9.2 mg/dL Normal 8.5-10.1 [facility] Comment on above: Performed By: #### C ALCULI #### [facility] [address] [address] [address] Sandra Castano Chloride [Moles/Vol] 102 mmol/L Normal 98-107 [facility] Comment on above: Performed By: #### C ALCULI #### [facility] [address] [address] [address] Sandra Castano CO2 [Moles/Vol] 31.2 mmol/L Normal 21.0-32.0 [facility] Comment on above: Performed By: #### C ALCULI #### [facility] [address] [address] [address] Sandra Castano Creatinine [Mass/Vol] 0.78 mg/dL Normal 0.55-1.02 [facility] Comment on above: Performed By: #### C ALCULI #### [facility] [address] [place] [address] Dr. Sandra Castano EGFR-AF COMORAN >60 Normal >=60 [facility] Comment on above: Performed By: #### C ALCULI #### [facility] [address] [address] [address] Sandra Castano EGFR-NON AF COMORAN >60 Normal >=60 [facility] Comment on above: Performed By: #### C ALCULI #### [facility] [address] [place] [address] Dr. Sandra Castano Globulin (S) [Mass/Vol] 3.6 g/dL Normal [facility] Comment on above: Performed By: #### C ALCULI #### [facility] [address] [address] [address] Sandra Castano Glucose [Mass/Vol] 101 mg/dL Normal 74-106 [facility] Comment on above: Performed By: #### C ALCULI #### [facility] [address] [address] [address] Sandra Castano Potassium [Moles/Vol] 4.0 mmol/L Normal 3.5-5.1 [facility] Comment on above: Performed By: #### C ALCULI #### [facility] [address] [address] [address] Sandra Castano Protein [Mass/Vol] 7.4 g/dL Normal 6.4-8.2 [facility] Comment on above: Performed By: #### C ALCULI #### [facility] [address] [address] [address] Sandra Castano Sodium [Moles/Vol] 140 mmol/L Normal 136-145 [facility] Comment on above: Performed By: #### C ALCULI #### [facility] [address] [address] [address] Sandra Castano Urea nitrogen [Mass/Vol] 14.0 mg/dL Normal 7.0-18.0 [facility] Comment on above: Performed By: #### C ALCULI #### [facility] [address] [place] [address] Dr. Sandra Castano Urea nitrogen/Creatinin e [Mass ratio] 17.9 mg/mg Normal [facility] Comment on above: Performed By: #### C ALCULI #### [facility] [address] [address] [address] Sandra Castano VIT B12 AND FOLATEon 022 Cobalamin (Vitamin B12) [Mass/Vol] 1475.0 pg/mL Critically high 193.0-986.0 [facility] Comment on above: Performed By: #### C ALCULI #### [facility] [address] [place] [address] Dr. Sandra Castano FOLATE 11.80 ng/mL Normal 8.60-58.90 [facility] Comment on above: Performed By: #### C ALCULI #### [facility] [address] [place] [address] Dr. Sandra Castano MG MAMM SCREEN 3D SRINATH CADon 12-03-2021 MG MAMM SCREEN 3D SRINATH CAD Patient: ELIDA CALVILLO Exam Date: 12/03/2021 : 1975 Gender:F Ordering : DR LUDY LAINEZ . Admission #: [id number] Family : Order #: [id number] CLICK HERE TO VIEW EXAM RADIOLOGY REPORT [...] colon cancer at age 67. LOCATION: [facility] BREAST COMPOSITION: Scattered areas fibroglandular density. FINDINGS: [...] M.D. on 12/03/2021 at 12:49 Normal [facility] LOWER EXTREMITY JOINT SURVEY on 02-19-2021 LOWER EXTREMITY JOINT SURVEY [facility] Department of Radiology [address] [place] [id number] ===== Patient Name: ELIDA CALVILLO : 1975 Sex: F Age: Race: White Pt. 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 Electronically signed: Dylon Duenas. Transcribed by: [email or web address], User Resident: Electronically Signed by: DYLON DUENAS @ 02/20/2021 12:06 PM Normal [facility] Comment on above: Order Comment: Evalu ate Vital Signs Date Time Vital Sign Value Performing Clinician Facility 2023 09:02-0400 Blood Pressure Location Romi Sarmiento [facility] 2023 09:02-0400 Diastolic blood pressure 82 mm[Hg] Romi Sarmiento [facility] 2023 09:02-0400 Heart rate 77 /min Romi Sarmiento [facility] 2023 09:02-0400 Respiratory rate 16 /min Romi Lue [facility] 2023 09:02-0400 Systolic blood pressure 135 mm[Hg] Romi Lue [facility] 06-10-2023 09:20-0500 Diastolic blood pressure 80 mm[Hg] Romi Lue [facility] 06-10-2023 09:20-0500 Mean blood pressure 101 mm[Hg] Romi Lue [facility] 06-10-2023 09:20-0500 Systolic blood pressure 142 mm[Hg] Romi Lue [facility] 06-10-2023 09:06-0500 Blood Pressure Location Romi Lue [facility] 06-10-2023 09:06-0500 Diastolic blood pressure 86 mm[Hg] Romi Lue [facility] 06-10-2023 09:06-0500 Heart rate 71 /min Romi Lue [facility] 06-10-2023 09:06-0500 Systolic blood pressure 144 mm[Hg] Romi Lue [facility] 09-04-2022 08:32-0400 Blood Pressure Location Romi Lue [facility] 09-04-2022 08:32-0400 Diastolic blood pressure 82 mm[Hg] Romi Lue [facility] 09-04-2022 08:32-0400 Heart rate 57 /min Romi Lue [facility] 09-04-2022 08:32-0400 Respiratory rate 16 /min Romi Lue [facility] 09-04-2022 08:32-0400 Systolic blood pressure 138 mm[Hg] Romi Lue [facility] 07-02-2022 09:14-0500 Blood Pressure Location Romi Lue [facility] 07-02-2022 09:14-0500 Diastolic blood pressure 78 mm[Hg] Romi Lue [facility] 07-02-2022 09:14-0500 Heart rate 68 /min Romi Lue [facility] 07-02-2022 09:14-0500 Respiratory rate 16 /min Romi Lue [facility] 07-02-2022 09:14-0500 Systolic blood pressure 124 mm[Hg] Romi Lue [facility] 03-24-2022 16:38-0400 Blood Pressure Location Miles Guevara [facility] 03-24-2022 16:38-0400 Diastolic blood pressure 78 mm[Hg] Miles Guevara [facility] 03-24-2022 16:38-0400 Heart rate 61 /min Miles Guevara [facility] 03-24-2022 16:38-0400 Mean blood pressure 95 mm[Hg] Miles Ismael [facility] 03-24-2022 16:38-0400 Respiratory rate 18 /min Miles Ismael [facility] 03-24-2022 16:38-0400 SaO2% (BldA) [Mass fraction] 98 % Miles Ismael [facility] 03-24-2022 16:38-0400 Systolic blood pressure 131 mm[Hg] Miles Ismael [facility] 03-24-2022 15:16-0400 Blood Pressure Location Miles Ismael [facility] 03-24-2022 15:16-0400 Diastolic blood pressure 75 mm[Hg] Miles Ismael [facility] 03-24-2022 15:16-0400 Heart rate 66 /min Miles Ismael [facility] 03-24-2022 15:16-0400 Mean blood pressure 96 mm[Hg] Miles Ismael [facility] 03-24-2022 15:16-0400 Respiratory rate 18 /min Miles Ismael [facility] 03-24-2022 15:16-0400 SaO2% (BldA) [Mass fraction] 98 % Miles Ismael [facility] 03-24-2022 15:16-0400 Systolic blood pressure 138 mm[Hg] Miles Ismael [facility] 03-24-2022 13:37-0400 Blood Pressure Location Miles Guevara [facility] 03-24-2022 13:37-0400 Diastolic blood pressure 74 mm[Hg] Miles Guevara [facility] 03-24-2022 13:37-0400 Heart rate 65 /min Miles Guevara [facility] 03-24-2022 13:37-0400 Mean blood pressure 106 mm[Hg] Miles Guevara [facility] 03-24-2022 13:37-0400 Respiratory rate 18 /min Miles Guevara [facility] 03-24-2022 13:37-0400 SaO2% (BldA) [Mass fraction] 100 % Miles Guevara [facility] 03-24-2022 13:37-0400 Systolic blood pressure 171 mm[Hg] Miles Guevara [facility] 03-24-2022 13:30-0400 Body temperature 98.24 [degF] Miles Guevara [facility] 03-24-2022 13:30-0400 Respiratory rate 10 /min Miles Guevara [facility] 03-24-2022 13:15-0400 Respiratory rate 11 /min Miles Guevara [facility] 03-24-2022 13:00-0400 Respiratory rate 13 /min Miles Guevara [facility] 03-24-2022 12:30-0400 Body temperature 98.06 [degF] Miles Guevara [facility] 03-24-2022 08:21-0400 Body temperature 97.7 [degF] Miles Guevara [facility] 03-24-2022 08:21-0400 Heart rate 72 /min Miles Guevara [facility] Encounters Encounter Date Encounter Type Care Provider Facility Start: 2023 End: 2023 ambulatory Romi Sarmiento Facility:[facility] Start: 2023 End: 2023 Patient encounter procedure Romi Sarmiento [facility] Start: 11-19-2023 End: 11-19-2023 ambulatory MARSHALL LYON Not Available Start: 10-27-2023 End: 10-27-2023 Lab Drop off Radha L Felipa [facility] Start: 10-27-2023 End: 10-27-2023 ambulatory CONDOMINIUM MANAGER Radha L Felipa Facility[facility] Start: 10-14-2023 End: 10-14-2023 ambulatory CONDOMINIUM MANAGER Radha L Felipa Facility:[facility] Start: 09-11-2023 End: 09-11-2023 ambulatory CONDOMINIUM MANAGER Radha L Felipa Facility:[facility] Start: 06-10-2023 End: 06-10-2023 ambulatory Romi M. Lue Facility:[facility] Start: 06-10-2023 End: 06-10-2023 Patient encounter procedure Romi M. Lue [facility] Start: 10-24-2022 End: 10-24-2022 Lab Drop off Radha L Felipa [facility] Start: 09-04-2022 End: 09-05-2022 ambulatory ROMI M LUE . Facility: Start: 09-04-2022 End: 09-04-2022 Patient encounter procedure Romi M. Lue [facility] Start: 08-30-2022 End: 08-31-2022 ambulatory ROMI M LUE . Facility: Start: 07-30-2022 End: 07-30-2022 ambulatory ROMI M LUE . Facility: Start: 07-24-2022 Encounter for preprocedural laboratory examination ROMI SARMIENTO . [facility] Start: 07-18-2022 End: 07-19-2022 ambulatory ERICK KRAFT Facility:[facility] Start: 07-18-2022 End: 07-19-2022 Encounter for preprocedural laboratory examination ERICK KRAFT Facility:[facility] Start: 07-10-2022 End: 07-11-[address] ETTA CEDEÑO Facility:[facility] Start: 07-02-2022 End: 07-02-2022 Patient encounter procedure Romi Sarmiento [facility] Start: 06-30-2022 End: 07-01-[address] ETTA CEDEÑO Facility:[facility] Start: 06-13-2022 End: 06-13-2022 Patient encounter procedure Romi Sarmiento [facility] Wendy Start: 06-06-2022 End: 06-07-[address] ETTA CEDEÑO Facility:[facility] Start: 05-27-2022 End: 05-28-[address] CINDI LINDA . Facility:[facility] Start: 05-07-2022 End: 05-08-[address] DOCTOR PALACIOS Facility:[facility] Start: 03-24-2022 End: 03-24-2022 Admission to same day surgery center Miles Guevara [facility] Start: 01-13-2022 End: 01-14-2022 ambulatory MARY [...] Miles Guevara Hand tendon operation Rosie Guevara Immunizations Immunization Date Immunization Notes Care Provider Kari sandoval 03-17-2023 influenza virus vaccine, unspecified formulation Romi Lue [facility] 03-06-2023 influenza virus vaccine, unspecified formulation Romi Lue [facility] 04-28-2022 influenza virus vaccine, unspecified formulation Romi Lue [facility] 04-28-2022 SARS-CoV-2 (COVID-19 ) [id number] Romi Lue [facility] 05-21-2021 SARS-CoV-2 (COVID-19 ) mRNA BNT-162b2 vax Romi Lue [facility] 03-08-2021 influenza virus vaccine, unspecified formulation Romi Lue [facility] 09-20-2020 SARS-CoV-2 (COVID-19 ) mRNA BNT-162b2 vax Romi Lue [facility] 08-30-2020 SARS-CoV-2 (COVID-19 ) mRNA BNT-162b2 vax Romi Lue [facility] 02-08-2020 influenza virus vaccine, unspecified formulation Romi Lue [facility] 02-15-2019 influenza virus vaccine, unspecified formulation Romi Lue [facility] 01-29-2019 influenza virus vaccine, unspecified formulation Romi Lue [facility] 03-06-2018 influenza virus vaccine, unspecified formulation Romi Lue [facility] 02-26-2015 influenza virus vaccine, unspecified formulation Romi Lue [facility] 02-25-2014 influenza virus vaccine, unspecified formulation Romi Lue [facility] 04-24-2013 influenza virus vaccine, unspecified formulation Romi Lue [facility] Payers Date Payer Category Payer Unknown [id number] 1975 Unknown [id number] 1975 Unknown [id number] ..[id number] 1975 Unknown [id number] ..[id number] [id number] 1975 Unknown [id number] ..[id number] [id number] 1975 Unknown [id number] .16.84 0.1.096785.3.579.2.593 1975 Unknown [id number] .16.84 0.1.258001.3.579.2.593 1975 Unknown [id number] ..[id number] 0.1.508386.3.579.2.593 1975 Unknown [id number] 2.16.84 0.1.617117.3.579.2.593 1975 Unknown [id number] 2.16.84 0.1.320930.3.579.2.593 1975 Unknown [id number] 2.16.84 0.1.759165.3.579.2.593 1975 Unknown [id number] 2.16.84 0.1.669881.3.579.2.1259 1975 Unknown [id number] 2.16.8 40.1.253218.3.579.2.727 1975 Unknown [id number] 2.16.8 40.1.977987.3.579.2.727 1975 Unknown [id number] 2.16.8 40.1.190173.3.579.2.727 1975 Unknown [id number] 2.16.8 40.1.095434.3.579.2.727 1975 Unknown [id number] 2.16.8 40.1.088035.3.579.2.727 1975 Unknown [id number] 2.16.8 40.1.907024.3.579.2.727 1959 Unknown [id number] 1960 Unknown [id number] Self-pay Self Pay [id number] Social History Date Type Detail [facility] Start: 1975 Sex Assigned At Female F [facility] Tobacco smoking status No Smokin g Status Entered [facility] Sex Assigned At Female [facility] Start: 06-13-2022 End: 2023 Tobacco smoking status Never smoked tobacco (finding) [facility] Tobacco smoking status Never [facility] Medical Equipment Procedure Code Equipment Code [...] Guevara DO 03/24/22 Non Biological Knee R {[id number] FDA Start: 03-24-2022 Goals Date Patient Goal Desired Activity /State Functional Status Date Assessment Result Facility 2023 Functional Status N/A [facility] 06-10-2023 Functional Status N/A [facility] 09-04-2022 Functional Status N/A [facility] 07-02-2022 Functional Status N/A [facility] 06-13-2022 Functional Status N/A [facility] [place] Clinical Notes 03-24-2022 to 2023 Note Date & Type Note Facility 2023 Hospital Discharg e instructions Patient Education 2023 09:55:50 Laser Therapy for Kidney Stones Laser Therapy for Kidney Stones Laser therapy for kidney stones is a procedure to break up small, hard mineral deposits that form in the kidney (kidney stones). The procedure is done using a device that produces a focused beam of light (laser). The laser breaks up kidney stones into pieces that are small enough to be passed out of the body through urination or removed from the body during the procedure. You may need laser therapy if you have kidney stones that are painful or block your urinary tract. This procedure is done by inserting a tube (ureteroscope) into your kidney through the urethral opening. The urethra is the part of the body that drains urine from the bladder. In women, the urethra opens above the vaginal opening. In men, the urethra opens at the tip of the penis. The ureteroscope is inserted through the urethra, and surgical instruments are moved through the bladder and the muscular tube that connects the kidney to the bladder (ureter) until they reach the kidney. Tell a health care provider about: Any allergies you have. All medicines you are taking, including vitamins, herbs, eye drops, creams, and xqfz-xfk-kgrhmqd medicines. Any problems you or family members have had with anesthetic medicines. Any blood disorders you have. Any surgeries you have had. Any medical conditions you have. Whether you are or may be . What are the risks? Generally, this is a safe procedure. However, problems may occur, including: Infection. Bleeding. Allergic reactions to medicines. Damage to the urethra, bladder, or ureter. Urinary tract infection (UTI). Narrowing of the urethra (urethral stricture). Difficulty passing urine. Blockage of the kidney caused by a fragment of kidney stone. What happens before the procedure? Medicines Ask your health care provider about: ?Changing or stopping your regular medicines. This is especially important if you are taking diabetes medicines or blood thinners. ?Taking medicines such as aspirin and ibuprofen. These medicines can thin your blood. Do not take these medicines unless your health care provider tells you to take them. ?Taking nvdz-iwn-kvudxax medicines, vitamins, herbs, and supplements. Eating and drinking Follow instructions from your health care provider about eating and drinking, which may include: 8 hours before the procedure stop eating heavy meals or foods, such as meat, fried foods, or fatty foods. 6 hours before the procedure stop eating light meals or foods, such as toast or cereal. 6 hours before the procedure stop drinking milk or drinks that contain milk. 2 hours before the procedure stop drinking clear liquids. Staying hydrated Follow instructions from your health care provider about hydration, which may include: Up to 2 hours before the procedure you may continue to drink clear liquids, such as water, clear fruit juice, black coffee, and plain tea. General instructions You may have a physical exam before the procedure. You may also have tests, such as imaging tests and blood or urine tests. If your ureter is too narrow, your health care provider may place a soft, flexible tube (stent) inside of it. The stent may be placed days or weeks before your laser therapy procedure. Plan to have someone take you home from the hospital or clinic. If you will be going home right after the procedure, plan to have someone stay with you for 24 hours. Do not use any products that contain nicotine or tobacco for at least 4 weeks before the procedure. These products include cigarettes, e-cigarettes, and chewing tobacco. If you need help quitting, ask your health care provider. Ask your health care provider: ?How your surgical site will be marked or identified. ?What steps will be taken to help prevent infection. These may include: ?Removing hair at the surgery site. ?Washing skin with a germ-killing soap. ?Taking antibiotic medicine. What happens during the procedure? An IV will be inserted into one of your veins. You will be given one or more of the following: ?A medicine to help you relax (sedative). ?A medicine to numb the area (local anesthetic). ?A medicine to make you fall asleep (general anesthetic). A ureteroscope will be inserted into your urethra. The ureteroscope will send images to a video screen in the operating room to guide your surgeon to the area of your kidney that will be treated. A small, flexible tube will be threaded through the ureteroscope and into your bladder and ureter, up to your kidney. The laser device will be inserted into your kidney through the tube. Your surgeon will pulse the laser on and off to break up kidney stones. A surgical instrument that has a tiny wire basket may be inserted through the tube into your kidney to remove the pieces of broken kidney stone. The procedure may vary among health care providers and hospitals. What happens after the procedure? Your blood pressure, heart rate, breathing rate, and blood oxygen level will be monitored until you leave the hospital or clinic. You will be given pain medicine as needed. You may continue to receive antibiotics. You may have a stent temporarily placed in your ureter. Do not drive for 24 hours if you were given a sedative during your procedure. You may be given a strainer to collect any stone fragments that you pass in your urine. Your health care provider may have these tested. This information is not intended to replace advice given to you by your health care provider. Make sure you discuss any questions you have with your health care provider. Document Revised: 09/24/2022 Document Reviewed: 01/20/2022 [employer] Patient Education 2022 [employer] 2023 09:55:50 Laser Therapy for Kidney Stones, Care After Laser Therapy for Kidney Stones, Care After This sheet gives you information about how to care for yourself after your procedure. Your health care provider may also give you more specific instructions. If you have problems or questions, contact your health care provider. What can I expect after the procedure? After the procedure, it is common to have: Pain. A burning sensation while urinating. Small amounts of blood in your urine. A need to urinate frequently. Pieces of kidney stone in your urine. Mild discomfort when urinating that may be felt in the back. You may experience this if you have a flexible tube (stent) in your ureter. Follow these instructions at home: Medicines Take afac-foa-yfucsmc and prescription medicines only as told by your health care provider. If you were prescribed an antibiotic medicine, take it as told by your health care provider. Do not stop taking the antibiotic even if you start to feel better. Ask your health care provider if the medicine prescribed to you: ?Requires you to avoid driving or using heavy machinery. ?Can cause constipation. You may need to take actions to prevent or treat constipation, such as: ?Take ucjz-dhu-mwmecta or prescription medicines. ?Eat foods that are high in fiber, such as beans, whole grains, and fresh fruits and vegetables. ?Limit foods that are high in fat and processed sugars, such as fried or sweet foods. Activity Return to your normal activities as told by your health care provider. Ask your health care provider what activities are safe for you. Do not drive for 24 hours if you were given a sedative during your procedure. General instructions If your health care provider approves, you may take a warm bath to ease discomfort and burning. Drink enough fluid to keep your urine pale yellow. Your health care provider may recommend drinking two 8 oz (237 mL) glasses of water per hour for a few hours after your procedure. You may be asked to strain your urine to collect any stone fragments that you pass. These fragments may be tested. Keep all follow-up visits as told by your health care provider. This is important. If you have a stent, you will need to return to your health care provider to have the stent removed. Contact a health care provider if you: Have pain or a burning feeling that lasts more than 2 days. Feel nauseous. Vomit more and more often. Have difficulty urinating. Have pain that gets worse or does not get better with medicine. Get help right away if: You are unable to urinate, even if your bladder feels full. You have: ?Bright red blood or blood clots in your urine. ?More blood in your urine. ?Severe pain or discomfort. ?A fever or shaking chills. ?Abdominal pain. ?Difficulty breathing. ?Swelling in your legs. This information is not intended to replace advice given to you by your health care provider. Make sure you discuss any questions you have with your health care provider. Document Revised: 09/24/2022 Document Reviewed: 01/20/2022 [employer] Patient Education 2022 [employer]. Follow Up Care 06/10/2023 09:53:36 With:Torsten DIAMOND, KEY JolleyL, URO Address: [address], [facility] [place] [address] [phone] When: Unknown [facility] 2023 Note Patient Education Nephrology Laser Therapy for Kidney Stones Laser therapy for kidney stones is a procedure to break up small, hard mineral deposits that form in the kidney (kidney stones). The procedure is done using a device that produces a focused beam of light (laser). The laser breaks up kidney stones into pieces that are small enough to be passed out of the body through urination or removed from the body during the procedure. You may need laser therapy if you have kidney stones that are painful or block your urinary tract. This procedure is done by inserting a tube (ureteroscope) into your kidney through the urethral opening. The urethra is the part of the body that drains urine from the bladder. In women, the urethra opens above the vaginal opening. In men, the urethra opens at the tip of the penis. The ureteroscope is inserted through the urethra, and surgical instruments are moved through the bladder and the muscular tube that connects the kidney to the bladder (ureter) until they reach the kidney. Tell a health care provider about: ? Any allergies you have. ? All medicines you are taking, including vitamins, herbs, eye drops, creams, and lwah-gwy-zvnlnpk medicines. ? Any problems you or family members have had with anesthetic medicines. ? Any blood disorders you have. ? Any surgeries you have had. ? Any medical conditions you have. ? Whether you are or may be . What are the risks? Generally, this is a safe procedure. However, problems may occur, including: ? Infection. ? Bleeding. ? Allergic reactions to medicines. ? Damage to the urethra, bladder, or ureter. ? Urinary tract infection (UTI). ? Narrowing of the urethra (urethral stricture). ? Difficulty passing urine. ? Blockage of the kidney caused by a fragment of kidney stone. What happens before the procedure? Medicines ? Ask your health care provider about: ? Changing or stopping your regular medicines. This is especially important if you are taking diabetes medicines or blood thinners. ? Taking medicines such as aspirin and ibuprofen. These medicines can thin your blood. Do not take these medicines unless your health care provider tells you to take them. ? Taking vxjv-akj-vfwkilr medicines, vitamins, herbs, and supplements. Eating and drinking Follow instructions from your health care provider about eating and drinking, which may include: ? 8 hours before the procedure ? stop eating heavy meals or foods, such as meat, fried foods, or fatty foods. ? 6 hours before the procedure ? stop eating light meals or foods, such as toast or cereal. ? 6 hours before the procedure ? stop drinking milk or drinks that contain milk. ? 2 hours before the procedure ? stop drinking clear liquids. Staying hydrated Follow instructions from your health care provider about hydration, which may include: ? Up to 2 hours before the procedure ? you may continue to drink clear liquids, such as water, clear fruit juice, black coffee, and plain tea. General instructions ? You may have a physical exam before the procedure. You may also have tests, such as imaging tests and blood or urine tests. ? If your ureter is too narrow, your health care provider may place a soft, flexible tube (stent) inside of it. The stent may be placed days or weeks before your laser therapy procedure. ? Plan to have someone take you home from the hospital or clinic. ? If you will be going home right after the procedure, plan to have someone stay with you for 24 hours. ? Do not use any products that contain nicotine or tobacco for at least 4 weeks before the procedure. These products include cigarettes, e-cigarettes, and chewing tobacco. If you need help quitting, ask your health care provider. ? Ask your health care provider: ? How your surgical site will be marked or identified. ? What steps will be taken to help prevent infection. These may include: ? Removing hair at the surgery site. ? Washing skin with a germ-killing soap. ? Taking antibiotic medicine. What happens during the procedure? ? An IV will be inserted into one of your veins. ? You will be given one or more of the following: ? A medicine to help you relax (sedative). ? A medicine to numb the area (local anesthetic). ? A medicine to make you fall asleep (general anesthetic). ? A ureteroscope will be inserted into your urethra. The ureteroscope will send images to a video screen in the operating room to guide your surgeon to the area of your kidney that will be treated. ? A small, flexible tube will be threaded through the ureteroscope and into your bladder and ureter, up to your kidney. ? The laser device will be inserted into your kidney through the tube. Your surgeon will pulse the laser on and off to break up kidney stones. ? A surgical instrument that has a tiny wire basket may be inserted through the tube into your kidney (more content not included)... [facility] 06-10-2023 Hospital Discharg e instructions Patient Education [...] include: ?8 oz (237 mL) of milk, gdchlui-lhvfgipkqprz-gbzod milk, and calcium-fortifiedfruit juice. Calcium-fortified means that [...] ?Spinach (cooked), rhubarb, beets, sweet potatoes, and Chilean chard. ?Peanuts. ?Potato chips, haitian fries, and baked potatoes with skin on. ?Nuts and nut products. ?Chocolate. If you regularly take a diuretic medicine, make sure to eat at least 1 or 2 servings of fruits or vegetables that are high in potassium each day. These include: ?Avocado. ?Banana. ?[place], prune, carrot, or tomato juice. ?Baked potato. [...] magnesium, fish oil, or vitamin B6. Take tkks-yto-thfqdee and prescription medicines only as told by [...] Casseroles. Pizza. Lasagna. Frozen meals. Potato chips. Lithuanian fries. The items listed above may not [...] provider. Document Revised: 08/28/2022 Document Reviewed: 08/28/2022 [employer] Patient Education 2022 [employer]. Follow Up Care 12/03/2022 08:49:17 With:Torsten DIAMOND, KT Jolley, URO Address: [address] [place] [address] [phone] When: Unknown Comments:6 mos w/ NEAL and OSCAR [facility] 09-04-2022 Hospital Discharg e instructions Patient Education 09/04/2022 09:31:21 Kidney Stones, Rbms-nr-Lkju Kidney Stones Kidney stones are rock-like masses [...] Follow these instructions at home: Medicines Take apfv-yup-bniwfig and prescription medicines only as told by [...] 10/04/2019 Document Reviewed: 10/04/2019 Elsevier Patient Education 2020 [employer] Follow Up Care 08/01/2022 14:22:05 With:Torsten DIAMOND, KT Jolley, URO Address: When: Unknown [facility] 07-02-2022 Hospital Discharg e instructions Patient [...] include: ?Spinach. ?Rhubarb. ?Beets. ?Potato chips and haitian fries. ?Nuts. If you regularly take a diuretic medicine, make sure to eat at least 1 2 fruits or vegetables high in potassium each day. These include: ?Avocado. ?Banana. ?[place], prune, carrot, or tomato juice. ?Baked potato. [...] Casseroles. Pizza. Lasagna. Frozen meals. Potato chips. Lithuanian fries. Summary You can reduce your risk [...] 09/12/2011 Document Revised: 09/07/2019 Document Reviewed: 04/28/2017 [employer] Patient Education 2019 [employer]. Follow Up Care 06/13/2022 11:44:22 With:Torsten DIAMOND, KT Jolley, URO Address: When: Unknown [facility] 06-13-2022 Hospital Discharg e instructions Patient [...] include: ?Spinach. ?Rhubarb. ?Beets. ?Potato chips and haitian fries. ?Nuts. If you regularly take a diuretic medicine, make sure to eat at least 1 2 fruits or vegetables high in potassium each day. These include: ?Avocado. ?Banana. ?[place], prune, carrot, or tomato juice. ?Baked potato. [...] Casseroles. Pizza. Lasagna. Frozen meals. Potato chips. Lithuanian fries. Summary You can reduce your risk [...] 09/12/2011 Document Revised: 09/07/2019 Document Reviewed: 04/28/2017 [employer] Patient Education 2020 [employer]. Follow Up Care 05/29/2022 15:18:35 With:Torsten DIAMOND, KT Jolley, URO Address: When: Unknown [facility] 03-24-2022 Hospital Discharg e instructions Patient Education [...] as possible. If the spirometer includes a development coach indicator, use this to guide you [...] 09/28/2007 Document Revised: 06/10/2018 Document Reviewed: 03/31/2018 [employer] Patient Education 2020 [employer] 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 It is therefore advised not to drive until after your first office visit following surgery FOLLOW-UP OFFICE VISIT: Miles Guevara DO [facility] [address] [place] [id number] Reviewed: 4-08 Follow Up Care 02/13/2022 09:46:16 With:Miles Guevara Address: [address] [place] [address]- Business (1) When: Unknown Comments:Keep scheduled appointment [facility] 03-24-2022 Evaluation + Plan note Extrac mulu from: Title:Post-anesthesia - General Author:Ashvin Gipson DO Date:03/24/22 Plan Transfer/ Discharge: Condition stable. Extracted from: Title:Pre-anesthesia - Adult Author:Ashvin Bartlett Jr., DO Date:03/24/22 Plan [place] [employer] Anesthesiologists (ASA) physical status classification: Class II. Anesthetic Preoperative Plan Anesthesia: General. , Regional Adductor canal block. Anesthetic plan, risks, benefits, and alternatives discussed with the patient and/or family. Patient verbalized understanding. Adverse reactions, complications, and alternatives discujssed. Consent signed and on chart.. [facility] Future Appointments Appointment Date:07/02/2022 09:30:00 AM Scheduled Provider:Romi Sarmiento MD Location:[facility] Appointment Type:URO Office Visit [facility] Evaluation + Plan note Future Appointments Appointment Date:10/20/2022 03:30:00 PM Scheduled Provider:Romi Sarmiento MD Location:[facility] Appointment Type:URO Video Visit Diagnostic Tests Pending * PTH Intact 09/04/22 * Uric Acid 09/04/22 [facility] Evaluation + Plan note Future Appointments Appointment Date:12/03/2022 08:30:00 AM Scheduled Provider:Romi Sarmiento MD Location:[facility] Appointment Type:URO Office Visit Diagnostic Tests Pending * PAP [id number] w/ HPV and Genotype rflx 10/24/22 [facility] Future Appointments Appointment Date:2023 09:00:00 AM Scheduled Provider:Romi Sarmiento MD Location:[facility] Appointment Type:URO Office Visit [facility] evaluation + Plan note Future Appointments Appointment Date:2023 09:00:00 AM Scheduled Provider:Romi Sarmiento MD Location:[facility] Appointment Type:URO Office Visit Diagnostic Tests Pending * PAP [id number] w/ HPV and Genotype rflx 10/27/23 [facility]arr[facility] No data available for this section [facility] No data available for this section [facility] No data available for this section [facility] Assessments No Assessments Information Available Summary [...] section and content) DATE CREATED AUTHOR 02/21/2021 [facility] DATE CREATED AUTHOR AUTHOR'S ORGANIZ ATION 09/14/2022 [facility] DATE CREATED AUTHOR AUTHOR'S ORGANIZ ATION 11/01/2023 [facility] DATE CREATED AUTHOR AUTHOR'S ORGANIZ ATION 11/21/2023 [facility] DATE CREATED AUTHOR AUTHOR'S ORGANIZ ATION 12/16/2023 [facility] Patient Care team informatio n (unrecognized section and content) Personnel Name: LUDY LAINEZ MD Address: Address: [address] [place] [address] [place] [address] Personnel Name: LUDY LAINEZ MD Address: Address: [address] [place] [address] Personnel Name: LUDY LAINEZ MD Address: Address: [address] [place], [place] [id number] Personnel Name: LUDY LAINEZ MD Address: Address: [address] [place], [place] [id number] Personnel Name: Radha Farley Address: Address: [address] [place] [address]- Personnel Name: Radha Farley Address: Address: [address] [place] [address]- Personnel Name: Radha Farley Address: Address: [address] [place] [address]- Personnel Name: Radha Farley Address: Address: [address] [place] [address]- FOR RECORDS PERTAINING TO PATIENTS WHO ARE [...] BE BASED ON THE PRIMARY CLINICAL RECORDS. [facility] [employer] [facility]. provides no warranty or guarantee of the accuracy or completeness of information in this document.
--- NOTE | 2023-12-25 09:19 | MM_ITS ---
Patient Name: JASMIN CALVILLO MR#: [id number] : 1975 Exam Date: 12/25/2023 Ordering Doctor: FRANTZ PANAD . RADIOLOGY REPORT PROCEDURE: MM TOMOSYNTHESIS SCREENING BI COMPARISON: MM TOMOSYNTHESIS SCREENING BI, 12/11/2022. MG MAMM SCREEN 3D SRINATH CAD, 12/03/2021. MG MAMM SCREEN 3D SRINATH CAD, 11/20/2020. MG MAMM SRINATH SCRN W CAD DIG, 06/12/2015. INDICATIONS: Screening Calculator Name NCI Breast Cancer Risk Assessment Tool 5 Year Breast Cancer Risk 0.80% Lifetime Breast Cancer Risk 8.20% Personal Breast Cancer No Personal Ovarian Cancer No Treatments None Family Cancers Father with prostate cancer at age 51; Grandfather-maternal with colon cancer at age 68. LOCATION: [facility] BREAST COMPOSITION: There are scattered areas of fibroglandular density. FINDINGS: DIAGNOSTIC CATEGORY 1--NEGATIVE. RIGHT BREAST: No significant suspicious finding. No significant change has occurred. LEFT BREAST: No significant suspicious finding. No significant change has occurred. RECOMMENDATIONS: ROUTINE MAMMOGRAM AND CLINICAL EVALUATION IN 12 MONTHS. PLEASE NOTE: A NORMAL MAMMOGRAM DOES NOT EXCLUDE THE POSSIBILITY OF BREAST CANCER. A CLINICALLY SUSPICIOUS PALPABLE LUMP SHOULD BE BIOPSIED. Dictated by: Shay Cedeño M.D. on 12/25/2023 at 14:13 Approved by: Shay Cedeño M.D. on 12/25/2023 at 14:17
== END 2023-12-25 09:14 | disposition home or self-care (01) ==
LOC: MAMMO 09:13
PROVIDERS: PCP Nurse Practitioner; Visit Provider Nurse Practitioner
DX: Z12.31 Encounter for screening mammogram for malignant neoplasm of breast (principal); Z80.0 Family history of malignant neoplasm of digestive organs; Z80.42 Family history of malignant neoplasm of prostate
CPT/HCPCS: 77063; 77067

== ENCOUNTER 2024-01-04 14:22 | Outpatient (OUT) | payer OTHER, SELFPAY ==
--- NOTE | 2024-01-04 14:32 | ECG_ITS ---
[facility] Test Date: 2024-01-04 Pat Name: JASMIN CALVILLO Department: Room: - Gender: Female [employer]: : 1975 Requested By: Order Number: [id number] Reading MD: MARY BARRIOS Measurements Intervals [place] Rate: 55 P: 27 NM: 132 QRS: 62 QRSD: 80 T: 44 QT: 434 QTc: 418 Interpretive Statements SINUS BRADYCARDIA No previous ECG available for comparison Electronically Signed On 01-04-2024 22:55:39 EDT by MARY BARRIOS
--- NOTE | 2024-01-04 15:08 | P.GSHP_ITS ---
History of Present Illness History of Present Illness Chief complaint: kidney stones Narrative: Patient presents for preadmission testing. The patient reports a history of kidney stones. The patient states she had a kidney stone follow-up in November this year and it was determined that she has a new stone in her left kidney. She states that this time she is not having any urinary complaints. She denies abdominal pain, flank pain, dysuria, hematuria, fever, or any other complaints. Review of Systems ROS Narrative REVIEW OF SYSTEMS: Negative except as stated in HPI, ten or more systems reviewed. Constitutional: No fever, chills, weakness ENT: No sore throat or epistaxis Cardiovascular: No edema, chest pain, palpitations, or activity intolerance Respiratory: No shortness of breath, cough, or wheezing Musculoskeletal: No joint pain or swelling Gastrointestinal: No abdominal pain, constipation, diarrhea, or vomiting Genitourinary: No dysuria or hematuria Neurological: No numbness, tingling, weakness, or headache Psychiatric: No mood changes PFSH PFSH Medical History (Updated 01/04/24 @ 14:51 by Tracee Wyman NP) Arthritis ?M19.90 - Unspecified osteoarthritis, unspecified site (ICD-10) Anemia ?D64.9 - Anemia, unspecified (ICD-10) COVID-19 ?U07.1 - COVID-19 (ICD-10) Kidney stones ?N20.0 - Calculus of kidney (ICD-10) Heartburn ?R12 - Heartburn (ICD-10) Postoperative nausea and vomiting ?R11.2 - Nausea with vomiting, unspecified (ICD-10) ?Z98.890 - Other specified postprocedural states (ICD-10) S/P extracorporeal shock wave therapy ?Z98.890 - Other specified postprocedural states (ICD-10) Surgical History (Updated 01/04/24 @ 15:06 by Tracee Wyman NP) History of surgery on lower extremity ?Z98.890 - Other specified postprocedural states (ICD-10) History of tubal ligation ?Z98.51 - Tubal ligation status (ICD-10) History of wisdom tooth extraction ?K08.409 - Partial loss of teeth, unspecified cause, unspecified class (ICD- 10) S/P ureteral stent placement ?Z96.0 - Presence of urogenital implants (ICD-10) S/P cystoscopy ?Z98.890 - Other specified postprocedural states (ICD-10) History of gastric bypass ?Z98.84 - Bariatric surgery status (ICD-10) History of arthroplasty of knee ?Z96.659 - Presence of unspecified artificial knee joint (ICD-10) H/O hand surgery ?Z98.890 - Other specified postprocedural states (ICD-10) Family History (Updated 01/04/24 @ 14:51 by Tracee Wyman NP) Other Family history of colon cancer Family history of diabetes mellitus Family history of hypertension Family history of prostate cancer Social History (Updated 01/04/24 @ 14:44 by Tracee Wyman NP) Within the past year, how often did you have a drink containing alcohol: monthly or less Smoking status: Never smoker Non-prescribed substance use: denies use Previous occupational history: [employer] Highest level of school completed/degree received: high school graduate Meds Home Medications and Allergies Home Medications ?Medication ?Instructions ?Recorded ?Confirmed ?Type calcium citrate 200 mg (950 mg) 200 mg PO DAILY 01/04/24 01/04/24 History tablet multivitamin (Daily Multi-Vitamin 1 tab PO DAILY 01/04/24 01/04/24 History tablet) omeprazole 40 mg capsule,delayed 40 mg PO DAILY 01/04/24 01/04/24 History release Allergies Allergy/AdvReac Type Severity Reaction Status Date / Time No Known Drug Allergies Allergy Verified 01/04/24 14:42 Exam Narrative Exam Narrative: Constitutional: Awake, alert, comfortable, well-appearing, nontoxic, interactive, vital signs as charted Head: Normocephalic, atraumatic Neck: Supple, normal appearance, normal range of motion, no meningeal signs, no lymphadenopathy Respiratory: No respiratory distress, breath sounds clear Cardiovascular: Regular rate and rhythm, strong and regular heart tones Abdomen: Nontender, normal bowel sounds, soft, no CVA tenderness Musculoskeletal: Normal gait, no swelling or edema Skin: No rashes or induration, no lesions, only visible skin inspected Neuro: No neurological deficits, normal sensation Psychiatric: Oriented ?3, normal affect Assessment and Plan Assessment and Plan (1) Kidney stones: Plan Cystoscopy, left retrograde pyelogram, left ureteroscopy, laser lithotripsy, left stent placement scheduled with Dr. Sarmiento January 13, 2024.
[2024-01-04 15:13] LABS: Basophils Percent Auto 0.5 % (0.2-2.0); Eosinophils Absolute Auto 0.1 10^3/uL (0.0-0.7); Eosinophils Percent Auto 1.2 % (0.9-7.0); Hematocrit 35.5 % (36.0-48.0); Immature Granulocytes Abs Auto 0.02 10^3/uL (0.00-0.03); Immature Granulocytes Pct Auto 0.2 % (0.0-0.5); Lymphocytes Absolute Auto 1.9 10^3/uL (1.2-3.8); Lymphocytes Percent Auto 21.5 % (20.5-60.0); Mean Corpuscular HGB Conc 33.8 g/dL (29.9-35.2); Mean Corpuscular Hemoglobin 31.9 pg (26.7-34.0); Mean Corpuscular Volume 94.4 fL (81.0-99.0); Mean Platelet Volume 11.3 fL (9.5-13.5); Monocytes Absolute Auto 0.6 10^3/uL (0.3-0.8); Neutrophils Percent Auto 69.6 % (43.0-75.0); Platelet Count 236 10^3/uL (150-450); Red Blood Count 3.76 10^6/uL (4.20-5.40); White Blood Count 8.6 10^3/uL (4.0-11.0)
[2024-01-04 15:42] LABS: Anion Gap 5.5; BUN Creatinine Ratio 12.3; Calcium 8.5 mg/dL (8.5-10.1); Carbon Dioxide 33.2 mmol/L (21.0-32.0); Chloride 104 mmol/L (98-107); Estimated GFR (African America >60 (>=60); Estimated GFR (Non-African Ame >60 (>=60); Glucose 106 mg/dL (74-106); Potassium 3.7 mmol/L (3.5-5.1); Sodium 139 mmol/L (136-145)
== END 2024-01-04 14:23 | disposition home or self-care (01) ==
LOC: PST 14:22
PROVIDERS: PCP Nurse Practitioner; Visit Provider Urology
DX: Z01.810 Encounter for preprocedural cardiovascular examination (principal); Z01.812 Encounter for preprocedural laboratory examination; Z01.818 Encounter for other preprocedural examination; N20.0 Calculus of kidney
CPT/HCPCS: 80048; 85025; 93005; G0463

== ENCOUNTER 2024-01-13 12:28 | Day surgery (SDC) | payer OTHER, SELFPAY ==
[2024-01-04 15:00] VITALS: BP 139/83; PULSE 64; TEMP 36.6; O2SAT 98; BMI 24.4
[2024-01-13] VITALS (9 sets, daily range): BP systolic 123–176; BP diastolic 80–99; PULSE 61–94; TEMP 36.9–37; O2SAT 97–100; BMI 23.7
[2024-01-13] MEDS: SCOPOLAMINE 1 MG/3 DAYS TRANSDERM PATCH 1 PATCH TD (12:56)
[2024-01-13] MEDS: LACTATED RINGER'S SOLUTION 1,000 ML 50 ML IV ×2 (12:56→15:53)
[2024-01-13 12:58] LABS: HCG Qualitative NEGATIVE (NEGATIVE); Internal Control Within Normal Limits
[2024-01-13] MEDS: CEFAZOLIN SODIUM 2 GM/50 ML D5W PREMIX IV (14:01)
[2024-01-13] MEDS: IOHEXOL 300 MG/ML - 50 ML BTL INJ (14:49)
--- NOTE | 2024-01-13 15:55 | XR_ITS ---
The [address] [address] Patient Name: JASMIN CALVILLO MRN: [id number] date: 1975 Sex: F Assigned Patient Location: [facility] Current Patient Location: Accession/Order Number: [id number] Exam Date: 01/13/2024 14:35 Report Date: 01/18/2024 07:20 At the request of: MARCELINO STEVENS Procedure: XR urethrogram retrograde EXAM: XR urethrogram retrograde HISTORY: Left renal stone/retrograde COMPARISON: 11/30/2023 TECHNIQUE: 7.97 mCi. Multiple images FINDINGS: Images demonstrate retrograde injection of iodinated contrast into the left renal collecting system. No definite filling defects are demonstrated. Placement of a left ureteral stent, the distal stent is not visualized on images. Two clips in the left pelvis likely tubal ligation clips XR/XR urethrogram retrograde IMPRESSION: Placement of a left ureteral stent Electronically authenticated by: THOMAS SAAVEDRA Date: 01/18/2024 07:20
--- NOTE | 2024-01-13 16:09 | PM.URSON ---
Urology Surgery Operative Note Operative Note Procedure Date: 01/13/24 Time Out Performed: yes Pre-op Diagnosis: Left kidney stones (> 2 cm stone burden) Post-op Diagnosis: same as pre-op Procedures performed: Cystoscopy, left retrograde pyelogram, ureteroscopy laser lithotripsy/stone extraction, stent placement Anesthesia: [facility] ( Dr. Parth Borrero ) Primary Surgeon: Romi Sarmiento Complications: none Estimated blood loss (mL): 0 Findings: Radiopaque stones in lower pole. L RPG- no hydronephrosis, extravasation or filling defects at the end of the case > 2 cm stone burden: 1.8 cm left lower pole stone burden underwent lithotripsy basket/dusting, 2-3 stones 3-4 mm eachin lower pole removed, 3-4 stones in the mid/upper poles about 2-4 mm each basket extracted Specimens: left kidney stones Drains: 4.9Fr x 22-32 cm JJ left ureteral stent on string Incision: none Indications for Procedures: 48 year old female with history of recurrent stones and gastric bypass presents for treatment of large left kidney stone burden: 1.8 x 1 cm lower pole, multiple other non obstructing stones in left kidney. After discussion of risks/benefits of management options, he elected to proceed with cystoscopy, left retrograde pyelogram, ureteroscopy with laser lithotripsy/stone extraction, ureteral stent placement under general anesthesia. Risks were discussed including but not limited to bleeding, pain, infection, damage to surrounding structures, inability to treat the stone/place a stent, and need for additional procedures. The patient understands the stent is not permanent and needs to be removed or exchanged within 3 months to prevent encrustation, infection, invasive procedures and/or permanent renal damage. Detailed description of Procedure: After informed consent was obtained, the patient was brought to the operating room and transferred onto the operating table in supine position. Sequential compression devices were placed on bilateral lower extremities. The patient received the appropriate dose of preoperative IV antibiotics and general anesthesia LMA was induced. They were positioned in modified dorsolithotomy with the appropriate pressure points padded, prepped, and draped in the usual sterile fashion for this procedure. An operative safety timeout was performed confirming the patient's identity, laterality and procedure, and all present agreed to proceed. I began by inserting a 22 [place] rigid cystoscope with 30 degree lens into the patient's urethra and bladder without difficulty. There were no bladder tumors, lesions, stones or foreign bodies. Bilateral ureteral orifices were orthotopic and patent. I turned my attention to the left ureteral orifice and a 6- [place] open-ended catheter was inserted into the ureteral orifice and dilute contrast was injected for retrograde pyelogram with findings as above. A Sensor wire was inserted into the ureter up to the renal pelvis confirmed on fluoroscopy. An 11/13 [place]er by 36 cm ureteral access sheath was inserted over the wire in a sequential fashion to gain access to the renal pelvis. Next a flexible ureteroscope was inserted through the sheath and advanced to the renal pelvis under fluoroscopic guidance. A 400 ?m Thulium laser fiber was used to break the stone into fragments which were then removed with a 1.8 tipless nitinol basket. Given degree of stone burden, the remaining smaller stone fragments were dusted into tiny fragments, smaller than the laser fiber. After the stone was adequately treated, a full renoscopy was performed confirming no significant residual stones or fragments remained. Contrast was injected to assist with mapping for the renoscopy. The wire was reinserted and a pull down ureteroscopy was performed confirming no stones remained in the ureter. A 4.9Fr x 22-32cm JJ variable length ureteral stent on a string was advanced over the wire, noting adequate curl in the renal pelvis and bladder on fluoroscopic. The bladder was drained and the cystoscope was removed. Stones were sent for analysis. String secured to left thigh with Tegaderm. The patient tolerated the procedure well without complication. The patient was awakened from anesthesia and sent to PACU in stable condition. Plan: Discharge home. Remove stent by the string at home in 5 days. Follow up in 6 weeks with renal US Other Provider present: No Post Operative care instructions: See discharge instructions Attending Doc Confirm Attending Attestation: Yes
--- NOTE | 2024-01-13 16:53 | PC.NURSE ---
1635: pt ambulates to bathroom with minimal assistance,pt voids without difficulty. urine is bloody with no clots.
== END 2024-01-13 17:19 | disposition home or self-care (01) ==
PROVIDERS: Anesthesiology; PCP Nurse Practitioner; Visit Provider Urology
PROC: (CPT 918; principal; 2024-01-13 13:40)
DX: N20.0 Calculus of kidney (principal); I10 Essential (primary) hypertension; K21.9 Gastro-esophageal reflux disease without esophagitis; Z87.442 Personal history of urinary calculi; Z98.84 Bariatric surgery status; Z98.51 Tubal ligation status
CPT/HCPCS: 52356; 36415; 74420; 82365; 84703; 99999; J0690; J1100; J1885; J2250; J2405; J2704; J3010; Q9967

== ENCOUNTER 2024-03-04 09:35 | Outpatient (OUT) | payer OTHER, SELFPAY ==
--- NOTE | 2024-03-04 09:40 | US_ITS ---
The [address] [address] Patient Name: JASMIN CALVILLO MRN: [id number] date: 1975 Sex: F Assigned Patient Location: Current Patient Location: [place] Accession/Order Number: [id number] Exam Date: 03/04/2024 10:05 Report Date: 03/04/2024 14:41 At the request of: MARCELINO STEVENS Procedure: US renal BI EXAMINATION: US renal BI HISTORY: Kidney Stone N20.0, Ureteral Stone N20.1 COMPARISON: Ultrasound renal bilateral 11/30/2023 TECHNIQUE: Ultrasound examination was performed of the kidneys and urinary bladder. FINDINGS: RIGHT KIDNEY: Mild dilation of renal pelvis and calyces. Several nonobstructing stones within the kidney, largest is 5 mm. Normal parenchymal echogenicity. Color Doppler demonstrates blood flow within the kidney. Kidney: 10.5 x 4.8 x 3.2 cm LEFT KIDNEY: Renal pelvis is upper limits of normal in width, but no appreciable dilation the calyces. Contain several small nonobstructing stones, largest is 2 mm. Normal parenchymal echogenicity. Color Doppler demonstrates blood flow within the kidney. Kidney: 10.4 x 5.5 6.8 cm BLADDER: No visible wall thickening, mass, or calculi. US/US renal BI IMPRESSION: 1. Bilateral nonobstructing nephrolithiasis. 2. Mild right hydronephrosis and questionable left hydronephrosis. Distal ureteral stones cannot be excluded. Electronically authenticated by: ETTA DICKSON Date: 03/04/2024 14:41
--- OUTSIDE RECORDS SUMMARY | 2024-03-04 09:45 | XMS_ITS | CCD ---
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 Name Role Phone LUDY LAINEZ Primary Care [...] ., DR LUDY French Primary Care Unavailable STRAWRITA MOULTON Consulting Unavailable MEGHA RESENDIZ Consulting Unavailable IVETT THOMPSON Consulting Unavailable Radha Leo Primary Care Physician MARSHALL LYON Attending Unavailable FelipaRadha Attending Unavailable FelipaRadha Attending Unavailable Romi Sarmiento Attending Unavailable Romi Sarmiento Attending Unavailable Radha Leo Admitting Unavailable FelipaRadha Attending Unavailable FelipaRadha Attending Unavailable LueRomi MClaritza Attending Unavailable LueRomi MClaritza Attending Unavailable MaydaeRomi Referring Unavailable MaydaeRomi Attending Unavailable Unavailable Unavailable Unavailable Allergies Allergy Classification Reported Allergen(s) Allergy Type Date of Onset Reaction(s) Facility (2 sources) No Known Medication Allergies; Translations: [No Known Medication Allergies] Propensity to adverse reactions (disorder) [facility] [place] Repository Medications Current Medications Medication Drug Class(es) Dates Sig (Normalized) Sig (Original) acetaminophen 325 mg / oxyCODONE hydrochloride 5 mg oral tablet (1 source) Opioid Agonist Start: 03-22-2022 Percocet 325 mg-5 mg Tab See Instructions, 50 tab(s), Refill(s) 0, 1- 2 tab(s) Oral q4hr PRN post operative knee replacement pain. Duration 7 days, [facility] #[id number], 165, cm, 02/26/22 12:16:00 EDT, Height/Length Dosing, [...] day(s), # 30 tab(s), Refills(s) 0, Pharmacy: [facility] #[id number], 165, cm, 02/26/22 12:16:00 EDT, Height/Length Dosing, 85.1, kg, 02/26/22 12:16:... Start Date: 03/22/22 Stop Date: 04/21/22 Status: Ordered Bariatric Multivitamins with 45 mg Iron oral capsule (9 sources) Start: 02-26-2022 take 1 capsule by [...] day(s), # 20 cap(s), Refills(s) 0, Pharmacy: [facility] #[id number], 165, cm, 02/26/22 12:16:00 EDT, Height/Length Dosing, 85.1, kg, 02/26/22 12:16:00 EDT, Weight Do... Start Date: 03/22/22 Stop Date: 03/27/22 Status: Ordered docusate sodium 100 mg oral capsule (1 source) Start: 03-22-2022 take 1 capsule by mouth twice daily Colace 100 mg Cap 100 mg = 1 cap(s), Oral, BID, # 20 cap(s), Refills(s) 0, Pharmacy: [facility] #[id number], 165, cm, 02/26/22 12:16:00 EDT, Height/Length Dosing, 85.1, kg, 02/26/22 12:16:00 EDT, Weight Dosing Start Date: 03/22/22 Status: Ordered omeprazole 40 mg delayed release oral capsule (3 sources) Proton Pump Inhibitor Start: 09-11-2023 take 1 capsule by mouth once daily omeprazole 40 mg Cap-DR 40 mg = 1 cap(s), Oral, Daily, # 90 cap(s), Refills(s) 3, Pharmacy: [facility] #[id number], 165, cm, 09/11/23 11:19:00 EDT, Height/Length Dosing, [...] nausea/vomiting, # 20 tab(s), Refills(s) 0, Pharmacy: [facility] #[id number], 165, cm, 02/26/22 12:16:00 EDT, Height/Length Dosing, 85.1, kg, 02/26/22 12:16:00 EDT, Weight Dosing Start Date: 03/22/22 Status: Ordered tamsulosin hydrochloride 0.4 mg oral capsule (2 sources) alpha-Adrenergic Chaya Start: 06-13-2022 take 1 capsule by mouth once daily Flomax 0.4 mg Cap 0.4 mg = 1 cap(s), Oral, Daily, # 30 cap(s), Refills(s) 1, Pharmacy: [facility] #[id number], 165, cm, 06/13/22 9:38:00 EST, Height/Length Dosing, 73.5, kg, 06/13/22 9:38:00 EST, Weight Dosing Start Date: 06/13/22 Status: Ordered Completed/Discontinued Medications Medication Drug Class(es) Dates Sig (Normalized) Sig (Original) Calcium Citrate (9 sources) Start: 02-26-2022 take 2 tablets by mouth twice daily calcium citrate Tab 500 mg, Oral, BID, 2 tabs twice a day, Prophylaxis Start Date: 02/26/22 Status: Ordered Problems Active Problems Problem Classification Problem Date Documented Da te Episodic/Chronic Abdominal pain (7 sources) Unspecified abdominal pain; Translations: [Pain in pelvis] Onset: 2 Episodic Acquired foot deformities (12 sources) Foot-drop Onset: 1 02-26-2022 Episodic Calculus of urinary tract (20 sources) Kidney stone; Translations: [Calculus of kidney] Onset: 3 Episodic Esophageal disorders (3 sources) Gastroesophageal reflux disease 09-11-2023 Chronic Essential hypertension (9 sources) Hypertensive disorder; Translations: [Essential (primary) hypertension] Onset: 3 06-13-2022 Chronic Genitourinary symptoms and ill-defined conditions (6 sources) Microscopic hematuria; Translations: [Asymptomatic microscopic hematuria] Onset: 3 Episodic Joint disorders and dislocations; trauma-related (3 sources) 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 Menstrual disorders (3 sources) Disorder of menstruation 09-11-2023 Chronic Osteoarthritis (20 sources) Osteoarthritis of knee; Translations: [Unilateral primary osteoarthritis, right knee] Onset: 1 Chronic Other aftercare (1 source) 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; Translations: [OTH [facility] CURRENT DRUG THERAPY] Onset: 3 Episodic Other [...] SPECIFIED POSTPROCEDURAL STATES] Onset: 3 Episodic Unclassified (8 sources) Asymptomatic microscopic hematuria 06-13-2022 Unclassified (5 sources) Body mass index 20-24 - normal 10-24-2022 Unclassified (5 sources) Non-smoker 10-24-2022 Unclassified (3 sources) Acquired varus deformity of right knee Onset: 09-11-2023 Unclassified (3 sources) Cancer cervix screening status 10-27-2023 Unclassified (6 sources) Patient encounter status 10-27-2023 Past or [...] PROSTATE] Onset: 12-06-2021 Episodic Sprains and strains (3 sources) Rupture of anterior cruciate ligament Onset: 02-19-2021 09-11-2023 Episodic Results Test Name Value Interpretation Reference Range Facil ity Provider Letteron 01-25-2024 Provider Letter Provider Letter January 25, 2024 ELIDA CALVILLO [address] [place] [address] : 1975 To Whom It May Concern, Please excuse the above named patient from work. Date of Illness: From: 01/13/2024 To: 01/27/2024 May Return to Work On: 01/27/2024 Restrictions: None Comments: _ Sincerely, Dr. Romi Sarmiento MD [address] [place] [id number] [facility] Reminderson 12-10-2023 Reminders Reminders From: Odalys Hermosillo To: EU - Recalls Torsten; Sent: 06/10/2023 09:51:08 EST Show up: 11/09/2023 10:51:00 EDT Subject: KUB and OSCAR Reminder Message Please Remember to:_have pt get KUB and OSCAR done prior to appt. Prefers [facility]. From: Marisa Barth (EU - Recalls Torsten) To: Romi Sarmiento MD; Sent: 11/25/2023 12:44:47 EDT Show up: 11/25/2023 12:44:00 EDT Subject: RE: KUB and OSCAR Pt had CT a/p w/ con done 08/2023 please advise if OSCAR/KUB need done still From: Romi Sarmiento MD To: EU - Recalls Torsten; Sent: 11/27/2023 13:14:34 EDT Show up: 11/27/2023 13:14:00 EDT Subject: RE: KUB and OSCAR Just KUB (OSCAR if having pain) Thanks, KML Pt seen 12/02/23 scheduled for stone surgery [facility] Ambulatory Visit Summaryon 0 2023 Ambulatory Visit [...] Romi Sinclair, URL, URO When: Where: [address] [place] [phone] Medications What How Much When Why Instructions [...] including vitamins, herbs, eye drops, creams, and iomo-tmc-hujzhjj medicines. ? Any problems you or family [...] tells you to take them. ? Taking hroz-khd-ffeqevo medicines, vitamins, herbs, and supplements. Eating and drinking Follow instructions from your health care provider about eating and drinking, which may include: ? 8 oren (more content not included)... Normal [facility] Urology Office/Clinic Noteon 2023 Urology Office/Clinic Note Urology Office/Clinic Note Chief Complaint 6m OSCAR/KUB & Metabolic Work Up HPI Staff 6m KUB & OSCAR & Metabolic Work Up DX: Kidney Stone & Microscopic Hematuria *No Urology Meds Litholink completed 07/05/23 Pt did go to the [facility] ER 09/02/23 CC: LUQ pain DX: Colitis [...] - mother with stones. [1] Presented to [facility] ER on 05/27/22- CT AP with IV/PO contrast: 5 mm R UPJ stone, 1 mm R UVJ stone, mild hydronephrosis and delayed nephrogram. 3 mm L UVJ stone. Additional 2 to 3 mm nonobstructing renal calculi. [facility] 06/30/22 - personal review: mild R hydro improved, BL nonobstructing stones, largest 5 [address]. KUB neg CT AP w/o contrast 07/10/22 R hydroureteronephrosis 6 x 5 x 4 mm distal ureteral stone. RLP 2 mm stone, LLP 3.5 mm stone S/p Cysto, Right ureteroscopy w/ laser litho, stone extraction, string stent placed. Stent removed at home without complications. [facility] 08/30/22 - BL stones - tiny RLP stone, 3.5 mm left stone KUB 05/18/23 [facility] - 5mm stone in RLP. 1cm stone in LLP. Personal review: stones are overestimated in size, likely multiple small stones. [facility] 05/18/23 [facility] - 1.4cm stone in L renal [...] order Gener (more content not included)... Normal [facility] Comment on above: Result Comment: [...] in the family: no Pt is seeing [facility] November 18 for the free floating clamp [...] masses. Pap obtained Neurologic: Grossly normal Skin: [place], moist, no tenting Lymph Nodes: No cervical [...] 10/27/23 9:44:00 EDT, 10/27/23 9:44:00 EDT PAP [id number] w/ HPV and Genotype rflx 2. Cervical cancer screening (Z12.4: Encounter for screening for malignant neoplasm of cervix) pap obtained without diffiuclty Ordered: triamcinolone, 40 mg = 1 mL, Injection, IntraMuscular, Once, Stop date 10/27/23 9:44:00 EDT, Routine, Start date 10/27/23 9:44:00 EDT, 10/27/23 9:44:00 EDT PAP [id number] w/ HPV and Genotype rflx 3. Breast cancer screening by mammogram (Z12.31: Encounter for screening mammogram for malignant neoplasm of breast) mammogram order provided 4. BMI 24.0-24.9, adult (Z68.24: Body mass index [BMI] 24.0-24.9, adult) BMI education complete Ordered: triamcinolone, 40 mg = 1 mL, Injection, IntraMuscular, Once, Stop date 10/27/23 9:44:00 EDT, Routine, Start date 10/27/23 9:44:00 EDT, 10/27/23 9:44:00 EDT PAP [id number] w/ HPV and Genotype rflx 5. Non-smoker (Z78.9: Other specified health status) continue not smoking Ordered: triamcinolone, 40 mg = 1 mL, Injection, IntraMuscular, Once, Stop date 10/27/23 9:44:00 EDT, Routine, Start date 10/27/23 9:44:00 EDT, 10/27/23 9:44:00 EDT PAP [id number] w/ HPV and Genotype rflx Follow-up No [...] virus vaccine, inactivated 04/28/2022 Recorded SARS-CoV-2 (COVID-19) mRNAMUL.ORD![id number] 04/28/2022 (more content not included)... Normal [facility] Comment on above: Result Comment: Elec tronically Signed By: Radha Farley\Date and Time Signed: 11/02/23 08:55 EDT PAP [id number] 10-31-2023 Cytology report Cyto stain Doc (Cvx/Vag) Note Invalid Interpretation Code [facility] [place] Comment on above: Result Comment: TEST S RESULT FLAG UNITS REF RANGE LAB Clinician Provided Cytology Information Source.............Cervix No. of containers..01 ThinPrep Vial DIAGNOSIS: 01 NEGATIVE FOR INTRAEPITHELIAL LESION OR MALIGNANCY. Specimen adequacy: 01 Satisfactory for evaluation. Endocervical and/or squamous metaplastic cells (endocervical component) are present. Performed by: 01 Rita Mcdaniel, Tunnel Heading Inspector ([facility]) . 01 Note: Note 02 The [...] High,A-Abnormal,AA-Critical Abnormal Performed at: 01 [facility] [address] [place] [address] Alex Pascual MD, 02 WB [facility] [address] [address] Catherine Pearson MD, Performed By: #### 1 [id number] #### [facility] [place] [facility] [address] [place] [address] HPV 16+18+31+33+35+39+ 45+51+52+56+58+59+ 66+68 DNA Probe+sig amp Ql (Cvx) Negative Invalid Interpretation Code Negative [facility] [place] Comment on above: Result Comment: This nucleic acid amplification test detects fourteen high-risk HPV types (16,18,31,33,35,39,45,51,52,56,58,59,66,68) without differentiation. Performed at: [facility] [address] [place], [place] [id number] MD Ankur Johnson Performed at: [facility] [place], [place] [id number] MD Michel Alexander Performed By: #### 1 [id number] #### [facility] [place] [facility] [address] [place] [address] PAP [id number] 10-27-2023 Gynecological Body Site CERVIX Normal [facility] Comment on above: Performed By: #### 1 [id number] #### [facility] [place] [facility] [address] [place] [address] Physician Orderon 10-27-2023 Physician Order [id number]#1.00T IFF Normal [facility] Family Medicine Office/Clini c Noteon 10-14-2023 Family Medicine Office/Clinic Note HPI Staff Elida is a 47 year female presenting for 1 month follow up GERI 09/11/23 pelvic pain, pelvic u/s ordered through [facility], started omeprazole Pt states intermittently will get [...] virus vaccine, inactivated 04/28/2022 Recorded SARS-CoV-2 (COVID-19) mRNAMUL.ORD![id number] 04/28/2022 Recorded SARS-CoV-2 (COVID-19) mRNA BNT-162b2 vax [...] influenza virus vaccine, inactivated 04/24/2013 Recorded Normal [facility] [place] Comment on above: Result Comment: Elec tronically Signed By: Radha Farley\.br\Date and Time Signed: 10/14/23 16:50 EDT Physician Referralon 024 Physician Referral [id number]#1.00 TIFF Normal [facility] RAD - Ultrasound Reporton RAD - Ultrasound Report [id number]#1.00T IFF Normal [facility] Ambulatory Visit Summaryon 0 09-11-2023 Ambulatory Visit [...] 4:40 PM EDT With: Radha Farley Where: [facility] Normal [address] [place] [address]- \.br\ Medications\.br\ What How Much When Why Instructions\.br \ New omeprazole (omeprazole 40 mg Cap-DR) 1 Capsules By Mouth Every day Pelvic pain Abnormal menstruation GERD (gastroesophagea l reflux disease) BMI 23.0-23.9, adult Refills: 3 Pickup at [facility] #[id number]\.br\ Unchanged calcium citrate (calcium citrate Tab) 500 [...] knee surgery nausea/ vomiting \.br\ Pharmacy Information\.br\ [facility] #[id number]: [address], [place] [id number] [phone]\.br\ Allergies\.br\ No Known Medication Allergies\.br\ Problems\.br\ Ongoing [...] for choosing us for your care.\.br\ \.br\ [facility] Medicine Office/Clini c Noteon 09-11-2023 Family Medicine Office/Clinic Note Chief Complaint ED follow up HPI Staff Elida is a 47 year old female presenting for ER follow up ER followup: Hospital: [facility] Visit date: 09/02/23 Symptoms the patient presented [...] floating ovary. will order pelvic u/s at [facility]. RTC 4 weeks. may consider referral to Dr. Palomares if u/s is abnormal Ordered: omeprazole, 40 mg = 1 cap(s), Oral, Daily, # 90 cap(s), Refills(s) 3, Pharmacy: [facility] #[id number], 165, cm, 09/11/23 11:19:00 EDT, Height/Length Dosing, 64.8, kg, 09/11/23 11:19:00 EDT, Weight Dosing 2. Abnormal menstruation (N92.6: Irregular menstruation, unspecified) periods every 2 weeks Ordered: omeprazole, 40 mg = 1 cap(s), Oral, Daily, # 90 cap(s), Refills(s) 3, Pharmacy: [facility] #[id number], 165, cm, 09/11/23 11:19:00 EDT, Height/Length Dosing, [...] Daily, # 90 cap(s), Refills(s) 3, Pharmacy: [facility] #[id number], 165, cm, 09/11/23 11:19:00 EDT, Height/Length Dosing, 64.8, kg, 09/11/23 11:19:00 EDT, Weight Dosing 4. BMI 23.0-23.9, adult (Z68.23: Body mass index [BMI] 23.0-23.9, adult) BMI education complete Ordered: omeprazole, 40 mg = 1 cap(s), Oral, Daily, # 90 cap(s), Refills(s) 3, Pharmacy: [facility] #[id number], 165, cm, 09/11/23 11:19:00 EDT, Height/Length Dosing, [...] virus vaccine, inactivated 04/28/2022 Recorded SARS-CoV-2 (COVID-19) mRNAMUL.ORD![id number] 04/28/2022 Recorded SARS-CoV-2 (COVID-19) mRNA BNT-162b2 vax 05/21/2021 Recorded influenza virus vaccine, inactivated 03/08/2021 Recorded SARS-CoV-2 (COVID-19) mRNA BNT-162b2 vax 09/20/2020 Recorded SARS-CoV-2 (COVID-19) mRNA BNT-162b2 vax 08/30/2020 Recorded influenza virus vaccine, inactivated 02/08/2020 Recorded influenza virus vaccine, inacti (more content not included)... [facility] Comment on above: Result Comment: Elec tronically Signed By: Radha Farley\.jens\Date and Time Signed: 09/11/23 11:42 EDT Physician Orderon 09-11-2023 Physician Order [id number]#1.00T IFF [facility] ED Note-Physicianon 09-03-19 24 ED Note-Physician [id number]#1.00T IFF [facility] Lab Reportson 07-13-2023 Lab Reports [id number]#1.00T IFF Normal [facility] Ambulatory Visit Summaryon 0 06-10-2023 Ambulatory Visit Summary ELIDA CALVILLO :1975 Visit Date:06/10/2023 Ambulatory Visit Instructions Your Diagnosis Ureteral stone Kidney stones Asymptomatic microscopic hematuria Tests Performed Urnls Dip Stick Auto w/o Microscopy POC 15321 US Renal -- Results Pending -- XR [...] Romi Sarmiento MD Where: [facility] Formson 06-10-2023 Forms [id number] [facility] Patient Educationon 06-10-19 24 Patient Education Nephrology [...] ? 8 oz (237 mL) of milk, hjdldbq-kmknzwikiurh-to iry milk, and calcium-fortifiedfruit juice. Calcium-fortified means [...] Spinach (cooked), rhubarb, beets, sweet potatoes, and Polish chard. ? Peanuts. ? Potato chips, malian fries, and baked potatoes with skin on. ? Nuts and nut products. ? Chocolate. ? If you regularly take a diuretic medicine, make sure to eat at least 1 or 2 servings of fruits or vegetables that are high in potassium each day. These include: ? Avocado. ? Banana. ? [place], prune, carrot, or tomato juice. ? Baked [...] fish oil, or vitamin B6. ? Take dvdx-ptv-pjmdlar and prescription medicines only as told by your health care provider. These include supplements. What foods sh (more content not included)... Normal [facility] Screenson 06-10-2023 Screens [id number] FF Normal [facility] Urology Office/Clinic Noteon 06-10-2023 Urology Office/Clinic Note [...] hx - mother with stones. Presented to [facility] ER on 05/27/22- CT AP with IV/PO contrast: 5 mm right UPJ stone, 1 mm right UVJ stone, mild hydronephrosis and delayed nephrogram. 3 mm left UVJ stone without left hydronephrosis or ureter. Additional 2 to 3 mm nonobstructing renal calculi. [facility] 06/30/22 - personal review: mild [...] placed. Stent removed at home without complications. [facility] 08/30/22 - bilateral stones - tiny RLP stone, 3.5 mm left stone KUB 05/18/23 [facility] - 5mm stone in RLP. 1cm stone in LLP. Personal review: stones are overestimated in size, likely multiple small stones. OSCAR 05/18/23 [facility] - 1.4cm stone in L renal [...] Urnls Dip Stick Auto w/o Microscopy POC 56089 US Renal XR Abdomen 1 View 2. [...] the patient (more content not included)... Normal [facility] Comment on above: Result Comment: Elec tronically Signed By: Romi Sarmiento MD\.br\Date and Time Signed: 06/10/23 14:46 EST\.br\Electronically Co-Signed By: Odalys Hermosillo\.br\Date and Time Co-Signed: 06/10/23 09:52 EST RAD - MISCon 05-28-2023 RAD - MISC [id number] IFF Normal [facility] RAD - Ultrasound Reporton RAD - Ultrasound Report [id number]#1.00T IFF Normal [facility] PTH INTACTon 09-05-2022 PTH, Intact 16 pg/mL Normal 15-65 [facility] Comment on above: Performed By: #### E RUR UMICRO #### [facility] [address] [place], [place] [address] Dr. Sandra Castano URIC ACID SERUMon 09-04-2022 Urate [Mass/Vol] 4.4 mg/dL Normal 2.6-6.0 [facility] Comment on above: Performed By: #### L IPA, CMP #### [facility] [address] [place], [place] [address] Dr. Sandra Castano US KIDNEYSon 08-31-2022 US KIDNEYS US KIDNEYS EXAM DATE: 08/30/2022 7:55 AM MDT COMPARISON: Ultrasound kidney is 06/30/2022, 06/06/2022; CT abdomen and pelvis 07/10/2022. INDICATION: Kidney stones. History of stone and stent removal. TECHNIQUE: Real-time ultrasound scanning of the kidneys and bladder was performed by the data support analyst. Certified Tumor Registrar static images are submitted for review. FINDINGS: [...] MAISHA ESTRADA Date: 2022-08-31 13:15 Normal [facility] CALCULI, URINARYon 3 2,8 Dihydroxyadenine Normal [facility] Comment on above: Performed By: #### C ALCULI #### [facility] [address] [place] [address] [address] Sandra Castano Ammonium Acid Urate Normal [facility] Comment on above: Performed By: #### C ALCULI #### [facility] [address] [place] [address] [address] Sandra Castano Bilirubin Ql (U) Normal [facility] Comment on above: Performed By: #### C ALCULI #### [facility] [address] [place] [address] Dr. Sandra Castano Ca Oxalate Dihydrate 80 % Normal [facility] Comment on above: Performed By: #### C ALCULI #### [facility] [address] [place] [address] [address] Sandra Castano CaHPO4 ([place]) Normal [facility] Comment on above: Performed By: #### C ALCULI #### [facility] [address] [place] [address] [address] Sandra Castano Calcium Bilirubinate Normal [facility] Comment on above: Performed By: #### C ALCULI #### [facility] [address] [place] [address] [address] Sandra Castano Calcium Carbonate Normal [facility] Comment on above: Performed By: #### C ALCULI #### [facility] [address] [place] [address] [address] Sandra Castano Calcium Oxalate Monohydrate 20 % Normal [facility] Comment on above: Performed By: #### C ALCULI #### [facility] [address] [place] [address] [address] Sandra Castano Calcium Palmitate Normal [facility] Comment on above: Performed By: #### C ALCULI #### [facility] [address] [place] [address] [address] Sandra Castano Calcium Phosphate Normal [facility] Comment on above: Performed By: #### C ALCULI #### [facility] [address] [place] [address] [address] Sandra Castano Calcium Stearate Normal [facility] Comment on above: Performed By: #### C ALCULI #### [facility] [address] [place] [address] [address] Sandra Castano Carbonate Apatite Normal [facility] Comment on above: Performed By: #### C ALCULI #### [facility] [address] [place] [address] [address] Sandra Castano Cellular Material Normal [facility] Comment on above: Performed By: #### C ALCULI #### [facility] [address] [place] [address] Dr. Sandra Castano Cholesterol [facility] Comment on above: Performed By: #### C ALCULI #### [facility] [address] [place] [address] Dr. Sandra Castano Color (U) Hahn Normal [facility] Comment on above: Performed By: #### C ALCULI #### [facility] [address] [place] [address] [address] Sandra Castano Comment [facility] Comment on above: Performed By: #### C ALCULI #### [facility] [address] [place] [address] Dr. Sandra Castano Comment Comment Normal [facility] [facility] Comment on above: Result Comment: Calc ulus received wet. Wet calculi must be dried before analysis, which delays reporting of results. Leaving calculi wet (such as water, saline, blood, urine) may lead to changes in composition. Performed By: #### C ALCULI #### [facility] [address] [place] [address] Dr. Sandra Castano Comment: Comment Normal [facility] Comment on above: Result Comment: Phys ician questions regarding Calculi Analysis contact [facility] at: [phone]. Performed By: #### C ALCULI #### [facility] [address] [place] [address] Dr. Sandra Castano Composition Comment Normal [facility] Comment on above: Result Comment: Perc entage (Represents the % composition) Performed By: #### C ALCULI #### [facility] [address] [address] [address] Sandra Castano Cystine Normal [facility] Comment on above: Performed By: #### C ALCULI #### [facility] [address] [address] [address] Sandra Castano Disclaimer: Comment Normal [facility] Comment on above: Result Comment: This test was developed and its performance characteristics determined by [facility]. It has not been cleared or approved by the Food and Drug Administration. Performed By: #### C ALCULI #### [facility] [address] [place] [address] Dr. Sandra Castano Dried Blood Normal [facility] Comment on above: Performed By: #### C ALCULI #### [facility] [address] [place] [address] Dr. Sandra Castano Drug or Metabolite Normal [facility] Comment on above: Performed By: #### C ALCULI #### [facility] [address] [place] [address] Dr. Sandra Castano Hydroxyapatite Normal [facility] Comment on above: Performed By: #### C ALCULI #### [facility] [address] [place] [address] Dr. Sandra Castano Mg NH4 PO4 (Struvite) [facility] Comment on above: Performed By: #### C ALCULI #### [facility] [address] [place] [address] Dr. Sandra Castano MgHPO4 (Newberyite) [facility] Comment on above: Performed By: #### C ALCULI #### [facility] [address] [place] [address] Dr. Sandra Castano Other component(s) Normal [facility] Comment on above: Performed By: #### C ALCULI #### [facility] [address] [address] [address] Sandra Castano PDF . Normal [facility] Comment on above: Performed By: #### C ALCULI #### [facility] [address] [address] [address] Sandra Castano Photo Comment [facility] Comment on above: Result Comment: Phot ograph will follow under a separate cover Performed By: #### C ALCULI #### [facility] [address] [address] [address] Sandra Castano Please note: Comment Normal [facility] Comment on above: Result Comment: Calc chica report will follow via computer, mail or ordnance engineering technician delivery. Performed By: #### C ALCULI #### [facility] [address] [place] [address] Dr. Sandra Castano Size 2x1 Normal [facility] Comment on above: Result Comment: Mult iple pieces received. Dimensions of the largest piece reported. Performed By: #### C ALCULI #### [facility] [address] [place] [address] Dr. Sandra Castano Sodium Acid Urate Normal [facility] Comment on above: Performed By: #### C ALCULI #### [facility] [address] [place] [address] Dr. Sandra Castano Source Comment [facility] Comment on above: Result Comment: Righ t Ureter Performed By: #### C ALCULI #### [facility] [address] [place] [address] Dr. Sandra Castano Triamterene [facility] Comment on above: Performed By: #### C ALCULI #### [facility] [address] [place] [address] Dr. Sandra Castano Uric Acid [facility] Comment on above: Performed By: #### C ALCULI #### [facility] [address] [place] [address] Dr. Sandra Castano Uric Acid Dihydrate [facility] Comment on above: Performed By: #### C ALCULI #### [facility] [address] [place] [address] Dr. Sandra Castano Weight 9 mg Normal [facility] Comment on above: Performed By: #### C ALCULI #### [facility] [address] [address] [address] Sandra Castano Xanthine Normal [facility] Comment on above: Performed By: #### C ALCULI #### [facility] [address] [address] [address] Sandra Castano PREG HCG QUALon 07-30-2022 , QUAL Negative Normal NEGATIVE [facility] Comment on above: Performed By: #### C ALCULI #### [facility] [address] [address] [address] Sandra Castano PROF CHEM 8 (BAS METB)on Anion gap [Moles/Vol] 12.7 mmol/L Normal [facility] Comment on above: Performed By: #### C ALCULI #### [facility] [address] [address] [address] Sandra Castano Calcium [Mass/Vol] 9.6 mg/dL Normal 8.5-10.1 [facility] Comment on above: Performed By: #### C ALCULI #### [facility] [address] [address] [address] Sandra Castano Chloride [Moles/Vol] 101 mmol/L Normal 98-107 [facility] Comment on above: Performed By: #### C ALCULI #### [facility] [address] [address] [address] Sandra Castano CO2 [Moles/Vol] 30.4 mmol/L Normal 21.0-32.0 [facility] Comment on above: Performed By: #### C ALCULI #### [facility] [address] [address] [address] Sandra Castano Creatinine [Mass/Vol] 0.65 mg/dL Normal 0.55-1.02 [facility] Comment on above: Performed By: #### C ALCULI #### [facility] [address] [address] [address] Sandra Castano EGFR-AF SAO TOMEAN >60 Normal >=60 [facility] Comment on above: Performed By: #### C ALCULI #### [facility] [address] [address] [address] Sandra Castano EGFR-NON AF SAO TOMEAN >60 Normal >=60 [facility] Comment on above: Performed By: #### C ALCULI #### [facility] [address] [address] [address] Sandra Castano Glucose [Mass/Vol] 121 mg/dL Critically high 74-106 T [facility] Comment on above: Performed By: #### C ALCULI #### [facility] [address] [address] [address] Sandra Castano Potassium [Moles/Vol] 4.1 mmol/L Normal 3.5-5.1 [facility] Comment on above: Performed By: #### C ALCULI #### [facility] [address] [address] [address] Sandra Castano Sodium [Moles/Vol] 140 mmol/L Normal 136-145 [facility] Comment on above: Performed By: #### C ALCULI #### [facility] [address] [address] [address] Sandra Castano Urea nitrogen [Mass/Vol] 17.0 mg/dL Normal 7.0-18.0 [facility] Comment on above: Performed By: #### C ALCULI #### [facility] [address] [address] [address] Sandra Castano Urea nitrogen/Creatinin e [Mass ratio] 26.2 mg/mg Normal [facility] Comment on above: Performed By: #### C ALCULI #### [facility] [address] [address] [address] Sandra Castano PROTIMEon 07-18-2022 INR Coag (PPP) [Relative time] 0.97 {INR} Normal [facility] Comment on above: Performed By: #### L IPA, CMP #### [facility] [address] [address] [address] Sandra Castano INR GUIDELINES SEE BELOW Normal [facility] Comment on above: Result Comment: DUNIA RED INR: 2.0 - 3.0 CONDITIONS NOT LISTED BELOW 2.5 - 3.5 FOR PROSTHETIC HEART VALVE REPLACEMENT 2.5 - 3.5 RECURRENT THROMBOSIS Performed By: #### L IPA, CMP #### [facility] [id number] Sandra Castano PT Coag (PPP) [Time] 10.3 s Normal 9.0-11.6 [facility] Comment on above: Performed By: #### L IPA, CMP #### [facility] [address] [address] [address] Sandra Castano PTTon 07-18-2022 aPTT Coag (Bld) [Time] 29.1 s Normal 22.3-36.2 [facility] Comment on above: Performed By: #### L IPA, CMP #### [facility] [address] [place], [place] [id number] Dr. Sandra Castano CT ABD/PELVIS WO CONon [...] ETTA CEDEÑO Date: 2022-07-10 13:31 Normal [facility] US KIDNEYSon 06-30-2022 US KIDNEYS EXAMINATION: US [facility] HISTORY: Kidney stone , hematuria [...] by: ETTA CEDEÑO Date: 2022-06-30 16:31 Normal [facility] XR KUB 1 VIEWon 06-30-2022 XR [...] ETTA CEDEÑO Date: 2022-06-30 17:20 Normal [facility] US KIDNEYSon 06-06-2022 US KIDNEYS EXAMINATION: US KIDSammi EYS HISTORY: Kidney stone COMPARISON: CT abdomen [...] by: ETTA CEDEÑO Date: 2022-06-06 12:32 Normal [facility] XR KUB 1 VIEWon 06-06-2022 XR [...] by: ETTA CEDEÑO Date: 2022-06-06 12:36 Normal [facility] CT ABD/PELV W CONon 05-28-20 22 [...] MEGHA RESENDIZ Date: 2022-05-27 23:14 Normal [facility] CBC AUTO DIFFon 05-27-2022 BASO # 0.0 103/ul Normal 0.0-0.1 [facility] Comment on above: Performed By: #### C ALCULI #### [facility] [address] [address] [address] Sandra Castano Basophils/100 WBC (Bld) 0.4 % Normal 0.2-2.0 [facility] Comment on above: Performed By: #### C ALCULI #### [facility] [address] [place] [address] Dr. Sandra Castano EO # 0.0 103/ul Normal 0.0-0.7 [facility] Comment on above: Performed By: #### C ALCULI #### [facility] [address] [place] [address] Dr. Sandra Castano Eosinophils/100 WBC (Bld) 0.1 % Critically low 0.9-7.0 [facility] Comment on above: Performed By: #### C ALCULI #### [facility] [address] [place] [address] Dr. Sandra Castano Erythrocyte distribution width (RBC) [Ratio] 13.0 % Normal 11.0-15.0 [facility] Comment on above: Performed By: #### C ALCULI #### [facility] [address] [place] [address] Dr. Sandra Castano Hematocrit (Bld) [Volume fraction] 37.1 % Normal 36.0-48.0 [facility] Comment on above: Performed By: #### C ALCULI #### [facility] [address] [place] [address] Dr. Sandra Castano Hemoglobin (Bld) [Mass/Vol] 12.1 g/dL Normal 12.0-16.0 [facility] Comment on above: Performed By: #### C ALCULI #### [facility] [address] [place] [address] Dr. Sandra Castano IG # 0.05 10e3/ul Critically high 0.00-0.03 [facility] Comment on above: Performed By: #### C ALCULI #### [facility] [address] [place] [address] Dr. Sandra Castano IG % 0.6 % Critically high 0.0-0.5 [facility] Comment on above: Performed By: #### C ALCULI #### [facility] [address] [address] [address] Sandra Castano LYMPH # 1.0 103/ul Critically low 1.2-3.8 [facility] Comment on above: Performed By: #### C ALCULI #### [facility] [address] [address] [address] Sandra Castano Lymphocytes/100 WBC (Bld) 11.7 % Critically low 20.5-60.0 [facility] Comment on above: Performed By: #### C ALCULI #### [facility] [address] [address] [address] Sandra Castano MANUAL DIFF REQ NO Normal [facility] Comment on above: Performed By: #### C ALCULI #### [facility] [address] [place] [address] Dr. Sandra Castano MCH (RBC) [Entitic mass] 28.8 pg Normal 26.7-34.0 [facility] Comment on above: Performed By: #### C ALCULI #### [facility] [address] [place] [address] Dr. Sandra Castano MCHC (RBC) [Mass/Vol] 32.6 g/dL Normal 29.9-35.2 [facility] Comment on above: Performed By: #### C ALCULI #### [facility] [address] [place] [address] Dr. Sandra Castano MCV (RBC) [Entitic vol] 88.3 fL Normal 81.0-99.0 [facility] Comment on above: Performed By: #### C ALCULI #### [facility] [address] [address] [address] Sandra Castano MONO # 0.4 103/ul Normal 0.3-0.8 [facility] Comment on above: Performed By: #### C ALCULI #### [facility] [address] [place] [address] Dr. Sandra Castano Monocytes/100 WBC (Bld) 4.2 % Normal 1.7-12.0 [facility] Comment on above: Performed By: #### C ALCULI #### [facility] [address] [place] [address] Dr. Sandra Castano NEUT # 6.8 103/ul Critically high 1.4-6.5 [facility] Comment on above: Performed By: #### C ALCULI #### [facility] [address] [place] [address] Dr. Sandra Castano Neutrophils/100 WBC (Bld) 83.0 % Critically high 43.0-75.0 [facility] Comment on above: Performed By: #### C ALCULI #### [facility] [address] [place] [address] Dr. Sandra Castano Platelet mean volume (Bld) [Entitic vol] 11.1 fL Normal 9.5-13.5 [facility] Comment on above: Performed By: #### C ALCULI #### [facility] [address] [place] [address] Dr. Sandra Castano PLT 312 103/ul Normal 150-450 [facility] Comment on above: Performed By: #### C ALCULI #### [facility] [address] [place] [address] Dr. Sandra Castano RBC 4.20 106/ul Normal 4.20-5.40 [facility] Comment on above: Performed By: #### C ALCULI #### [facility] [address] [place] [address] Dr. Sandra Castano WBC 8.2 103/ul Normal 4.0-11.0 [facility] Comment on above: Performed By: #### C ALCULI #### [facility] [address] [place] [address] Dr. Sandra Castano CULTURE URINEon 05-27-2022 CULTURE URINE Culture Observations : LIGHT GROWTH OF MIXED GENITAL NITISH. NO POTENTIAL PATHOGENS SEEN. Normal [facility] Comment on above: Performed By: #### L IPA, CMP #### [facility] [address] [place] [address] Dr. Sandra Castano ER URINE PROFILEon 2 Bilirubin Ql (U) Negative Normal NEGATIVE [facility] Comment on above: Performed By: #### E RUR, UMICRO #### [facility] [address] [place] [address] Dr. Sandra Castano Clarity (U) CLEAR Normal CLEAR [facility] Comment on above: Performed By: #### FLORENCIO DUBOISRO #### [facility] [address] [place] [address] Dr. Sandra Castano Color (U) YELLOW Normal YELLOW [facility] Comment on above: Performed By: #### FLORENCIO DUBOISRO #### [facility] [address] [place] [address] Dr. Sandra GORDON A micrscopic examination will be performed if indicated. Normal [facility] Comment on above: Performed By: #### FLORENCIO DUBOISRO #### [facility] [address] [place] [address] Dr. Sandra Castano Glucose Ql (U) Negative Normal NEGATIVE [facility] Comment on above: Performed By: #### FLORENCIO DUBOISRO #### [facility] [address] [place] [address] Dr. Sandra Castano Hemoglobin Ql (U) Negative Normal NEGATIVE [facility] Comment on above: Performed By: #### FLORENCIO DUBOISRO #### [facility] [address] [place] [address] Dr. Sandra Castano Ketones Ql (U) 40 mg/dl Abnormal NEGATIVE [facility] Comment on above: Performed By: #### FLORENCIO DUBOISRO #### [facility] [address] [place] [address] Dr. Sandra Castano LEUKOCYTES Negative Normal NEGATIVE [facility] Comment on above: Performed By: #### ELAINA DUBOISICRO #### [facility] [address] [place] [address] Dr. Sandra Castano Nitrite Ql (U) Negative Normal NEGATIVE [facility] Comment on above: Performed By: #### FLORENCIO DUBOISRO #### [facility] [address] [place] [address] Dr. Sandra Castano pH (U) 5.0 [pH] Normal 5-9 [facility] Comment on above: Performed By: #### E CURTIS UMICRO #### [facility] [address] [address] [address] Sandra Castano Protein (U) [Mass/Vol] 30 mg/dL Abnormal NEGATIVE/ TRACE [facility] Comment on above: Performed By: #### E CURTIS UMICRO #### [facility] [address] [place] [address] Dr. Sandra Castano SPEC GRAVITY >=1.030 Abnormal 1.005-<=1.025 [facility] Comment on above: Performed By: #### E CURTIS UMICRO #### [facility] [address] [place] [address] Dr. Sandra Castano UR MICRO IND INDICATED Normal [facility] Comment on above: Performed By: #### E CURTIS UMICRO #### [facility] [address] [place] [address] Dr. Sandra Castano Urobilinogen Qn (U) 0.2 {Tee'U}/dL Normal 0.2 - 1.0 [facility] Comment on above: Performed By: #### ELAINA DUBOISICRO #### [facility] [address] [place] [address] Dr. Sandra Castano LIPASEon 05-27-2022 Lipase [Catalytic activity/Vol] 88.0 U/L Normal 73.0-393.0 [facility] Comment on above: Performed By: #### L IPA, CMP #### [facility] [address] [place] [address] Dr. Sandra Castano URon 05-27-2022 , QUAL Negative Normal NEGATIVE [facility] Comment on above: Performed By: #### P REGU #### [facility] [address] [place] [address] Dr. Sandra Castano PROF 14(COMP METB)on 022 Albumin [Mass/Vol] 4.0 g/dL Normal 3.4-5.0 [facility] Comment on above: Performed By: #### L IPA, CMP #### [facility] [address] [place] [address] Dr. Sandra Castano Albumin/Globulin [Mass ratio] 1.0 {ratio} Normal [facility] Comment on above: Performed By: #### L IPA, CMP #### [facility] [address] [place] [address] Dr. Sandra Castano ALP [Catalytic activity/Vol] 106 U/L Normal 46-116 [facility] Comment on above: Performed By: #### L IPA, CMP #### [facility] [address] [place] [address] Dr. Sandra Castano ALT [Catalytic activity/Vol] 24 U/L Normal 14-59 [facility] Comment on above: Performed By: #### L IPA, CMP #### [facility] [address] [place] [address] Dr. Sandra Castano Anion gap [Moles/Vol] 15.2 mmol/L Normal [facility] Comment on above: Performed By: #### L IPA, CMP #### [facility] [address] [place] [address] Dr. Sandra Castano AST [Catalytic activity/Vol] 21 U/L Normal 15-37 [facility] Comment on above: Performed By: #### L IPA, CMP #### [facility] [address] [place] [address] Dr. Sandra Castano Bilirubin [Mass/Vol] 0.4 mg/dL Normal 0.2-1.0 [facility] Comment on above: Performed By: #### L IPA, CMP #### [facility] [address] [place] [address] Dr. Sandra Castano Calcium [Mass/Vol] 9.6 mg/dL Normal 8.5-10.1 [facility] Comment on above: Performed By: #### L IPA, CMP #### [facility] [address] [place] [address] Dr. Sandra Castano Chloride [Moles/Vol] 99 mmol/L Normal 98-107 [facility] Comment on above: Performed By: #### L IPA, CMP #### [facility] [address] [place] [address] Dr. Sandra Castano CO2 [Moles/Vol] 25.2 mmol/L Normal 21.0-32.0 [facility] Comment on above: Performed By: #### L IPA, CMP #### [facility] [address] [place] [address] Dr. Sandra Castano Creatinine [Mass/Vol] 0.90 mg/dL Normal 0.55-1.02 [facility] Comment on above: Performed By: #### L IPA, CMP #### [facility] [address] [place] [address] Dr. Sandra Castano EGFR-AF SAO TOMEAN >60 Normal >=60 [facility] Comment on above: Performed By: #### L IPA, CMP #### [facility] [address] [place] [address] Dr. Sandra Castano EGFR-NON AF SAO TOMEAN >60 Normal >=60 [facility] Comment on above: Performed By: #### L IPA, CMP #### [facility] [address] [place] [address] Dr. Sandra Castano Globulin (S) [Mass/Vol] 4.2 g/dL Normal [facility] Comment on above: Performed By: #### L IPA, CMP #### [facility] [address] [place] [address] Dr. Sandra Castano Glucose [Mass/Vol] 171 mg/dL Critically high 74-106 T [facility] Comment on above: Performed By: #### L IPA, CMP #### [facility] [address] [place] [address] Dr. Sandra Castano Potassium [Moles/Vol] 3.4 mmol/L Critically low 3.5-5.1 [facility] Comment on above: Performed By: #### L IPA, CMP #### [facility] [address] [place] [address] Dr. Sandra Castano Protein [Mass/Vol] 8.2 g/dL Normal 6.4-8.2 [facility] Comment on above: Performed By: #### L IPA, CMP #### [facility] [address] [place] [address] Dr. Sandra Castano Sodium [Moles/Vol] 136 mmol/L Normal 136-145 [facility] Comment on above: Performed By: #### L IPA, CMP #### [facility] [address] [place] [address] Dr. Sandra Castano Urea nitrogen [Mass/Vol] 14.0 mg/dL Normal 7.0-18.0 [facility] Comment on above: Performed By: #### L IPA, CMP #### [facility] [address] [place] [address] Dr. Sandra Castano Urea nitrogen/Creatinin e [Mass ratio] 15.6 mg/mg Normal [facility] Comment on above: Performed By: #### L IPA, CMP #### [facility] [address] [place] [address] Dr. Sandra Castano URINE MICROSCOPIC ONLYon BACTERIA MODERATE Abnormal NONE SEEN [facility] Comment on above: Performed By: #### E RUR, UMICRO #### [facility] [address] [place] [address] Dr. Sandra Castano Bacteria identified Cx Nom (U) INDICATED Normal [facility] Comment on above: Performed By: #### E RUR, UMICRO #### [facility] [address] [place] [address] Dr. Sandra Castano CAST NONE SEEN Normal NONE SEEN [facility] Comment on above: Performed By: #### E RUR, UMICRO #### [facility] [address] [place] [address] Dr. Sandra Castano Crystals LM Nom (Urine sed) NONE SEEN Normal NONE SEEN [facility] Comment on above: Performed By: #### E RUR, UMICRO #### [facility] [address] [place] [address] Dr. Sandra Castano Epithelial cells LM Ql (Urine sed) RARE Normal NONE SEEN /RARE [facility] Comment on above: Performed By: #### E RUR, UMICRO #### [facility] [address] [place] [address] Dr. Sandra Castano MUCOUS TRACE Abnormal NONE SEEN [facility] Comment on above: Performed By: #### E RUR, UMICRO #### [facility] [address] [address] [address] Sandra Castano RBC 2-5 Abnormal 0-2 [facility] Comment on above: Performed By: #### E RUR, UMICRO #### [facility] [address] [address] [address] Sandra Castano WBC 2-5 Abnormal NONE SEEN [facility] Comment on above: Performed By: #### E RUR, UMICRO #### [facility] [address] [address] [address] Sandra Castano YEAST PRESENT Abnormal NONE SEEN [facility] Comment on above: Performed By: #### E RUR, UMICRO #### [facility] [address] [address] [address] Sandra Castano XR ABD FLAT UP_PA [...] RITA TAYLOR Date: 2022-05-27 21:17 Normal [facility] VITAMIN B1 (THIAMINE)on 05-01 Vit. B1, Whole Blood 168.7 nmol/L Normal 66.5-200.0 [facility] Comment on above: Performed By: #### C ALCULI #### [facility] [address] [place] [address] Dr. Sandra Castano CBC AUTO DIFFon 12-07-2022 BASO # 0.1 103/ul Normal 0.0-0.1 [facility] Comment on above: Performed By: #### L IPA, CMP #### [facility] [address] [place] [address] Dr. Sandra Castano Basophils/100 WBC (Bld) 0.5 % Normal 0.2-2.0 [facility] Comment on above: Performed By: #### L IPA, CMP #### [facility] [address] [place] [address] Dr. Sandra Castano EO # 0.1 103/ul Normal 0.0-0.7 [facility] Comment on above: Performed By: #### L IPA, CMP #### [facility] [address] [place] [address] Dr. Sandra Castano Eosinophils/100 WBC (Bld) 1.3 % Normal 0.9-7.0 [facility] Comment on above: Performed By: #### L IPA, CMP #### [facility] [address] [place] [address] Dr. Sandra Castano Erythrocyte distribution width (RBC) [Ratio] 12.8 % Normal 11.0-15.0 [facility] Comment on above: Performed By: #### L IPA, CMP #### [facility] [address] [place] [address] Dr. Sandra Castano Hematocrit (Bld) [Volume fraction] 37.5 % Normal 36.0-48.0 [facility] Comment on above: Performed By: #### L IPA, CMP #### [facility] [address] [place] [address] Dr. Sandra Castano Hemoglobin (Bld) [Mass/Vol] 12.1 g/dL Normal 12.0-16.0 [facility] Comment on above: Performed By: #### L IPA, CMP #### [facility] [address] [place] [address] Dr. Sandra Castano IG # 0.03 10e3/ul Normal 0.00-0.03 [facility] Comment on above: Performed By: #### L IPA, CMP #### [facility] [address] [address] [address] Sandra Castano IG % 0.3 % Normal 0.0-0.5 [facility] Comment on above: Performed By: #### L IPA, CMP #### [facility] [address] [place] [address] Dr. Sandra Castano LYMPH # 2.6 103/ul Normal 1.2-3.8 [facility] Comment on above: Performed By: #### L IPA, CMP #### [facility] [address] [place] [address] Dr. Sandra Castano Lymphocytes/100 WBC (Bld) 28.8 % Normal 20.5-60.0 [facility] Comment on above: Performed By: #### L IPA, CMP #### [facility] [address] [place] [address] Dr. Sandra Castano MANUAL DIFF REQ NO Normal [facility] Comment on above: Performed By: #### L IPA, CMP #### [facility] [address] [place] [address] Dr. Sandra Castano MCH (RBC) [Entitic mass] 29.2 pg Normal 26.7-34.0 [facility] Comment on above: Performed By: #### L IPA, CMP #### [facility] [address] [place] [address] Dr. Sandra Castano MCHC (RBC) [Mass/Vol] 32.3 g/dL Normal 29.9-35.2 [facility] Comment on above: Performed By: #### L IPA, CMP #### [facility] [address] [place] [address] Dr. Sandra Castano MCV (RBC) [Entitic vol] 90.4 fL Normal 81.0-99.0 [facility] Comment on above: Performed By: #### L IPA, CMP #### [facility] [address] [place] [address] Dr. Sandra Castano MONO # 0.5 103/ul Normal 0.3-0.8 [facility] Comment on above: Performed By: #### L IPA, CMP #### [facility] [address] [place], [place] [id number] Dr. Sandra Castano Monocytes/100 WBC (Bld) 5.4 % Normal 1.7-12.0 [facility] Comment on above: Performed By: #### L IPA, CMP #### [facility] [address] [place] [address] Dr. Sandra Castano NEUT # 5.8 103/ul Normal 1.4-6.5 [facility] Comment on above: Performed By: #### L IPA, CMP #### [facility] [address] [place] [address] Dr. Sandra Castano Neutrophils/100 WBC (Bld) 63.7 % Normal 43.0-75.0 [facility] Comment on above: Performed By: #### L IPA, CMP #### [facility] [address] [place] [address] Dr. Sandra Castano Platelet mean volume (Bld) [Entitic vol] 11.0 fL Normal 9.5-13.5 [facility] Comment on above: Performed By: #### L IPA, CMP #### [facility] [address] [place] [address] Dr. Sandra Castano PLT 370 103/ul Normal 150-450 [facility] Comment on above: Performed By: #### L IPA, CMP #### [facility] [address] [place] [address] Dr. Sandra Castano RBC 4.15 106/ul Critically low 4.20-5.40 [facility] Comment on above: Performed By: #### L IPA, CMP #### [facility] [address] [place] [address] Dr. Sandra Castano WBC 9.1 103/ul Normal 4.0-11.0 [facility] Comment on above: Performed By: #### L IPA, CMP #### [facility] [address] [place] [address] Dr. Sandra Castano FERRITINon 05-07-2022 Ferritin [Mass/Vol] 180.0 ng/mL Critically high 6.2-137.0 [facility] Comment on above: Performed By: #### L IPA, CMP #### [facility] [address] [place] [address] Dr. Sandra Castano IRON AND TIBCon 05-07-2022 % SATURATION 19.4 % Normal [facility] Comment on above: Performed By: #### L IPA, CMP #### [facility] [address] [place] [address] Dr. Sandra Castano Iron [Mass/Vol] 43.0 ug/dL Critically low 50.0-170.0 [facility] Comment on above: Performed By: #### L IPA, CMP #### [facility] [address] [place] [address] Dr. Sandra Castano TIBC DIRECT 222.0 ug/dL Critically low 250.0-450.0 [facility] Comment on above: Performed By: #### L IPA, CMP #### [facility] [address] [place] [address] Dr. Sandra Castano MAGNESIUMon 05-07-2022 Magnesium [Mass/Vol] 1.8 mg/dL Normal 1.8-2.4 [facility] Comment on above: Performed By: #### M G, CMP, PHOS #### [facility] [address] [place] [address] Dr. Sandra Castano PHOSPHORUSon 05-07-2022 Phosphate [Mass/Vol] 4.4 mg/dL Normal 2.6-4.7 [facility] Comment on above: Performed By: #### M G, CMP, PHOS #### [facility] [address] [place] [address] Dr. Sandra Castano PROF 14(COMP METB)on 022 Albumin [Mass/Vol] 3.6 g/dL Normal 3.4-5.0 [facility] Comment on above: Performed By: #### M G, CMP, PHOS #### [facility] [address] [place] [address] Dr. Sandra Castano Albumin/Globulin [Mass ratio] 0.9 {ratio} Normal [facility] Comment on above: Performed By: #### M G, CMP, PHOS #### [facility] [address] [place] [address] Dr. Sandra Castano ALP [Catalytic activity/Vol] 106 U/L Normal 46-116 [facility] Comment on above: Performed By: #### M G, CMP, PHOS #### [facility] [address] [address] [address] Sandra Castano ALT [Catalytic activity/Vol] 61 U/L Critically high 14-59 [facility] Comment on above: Performed By: #### M G, CMP, PHOS #### [facility] [address] [address] [address] Sandra Castano Anion gap [Moles/Vol] 12.2 mmol/L Normal [facility] Comment on above: Performed By: #### M G, CMP, PHOS #### [facility] [address] [place] [address] Dr. Sandra Castano AST [Catalytic activity/Vol] 35 U/L Normal 15-37 [facility] Comment on above: Performed By: #### M G, CMP, PHOS #### [facility] [address] [address] [address] Sandra Castano Bilirubin [Mass/Vol] 0.5 mg/dL Normal 0.2-1.0 [facility] Comment on above: Performed By: #### M Selin, CMP, PHOS #### [facility] [address] [address] [address] Sandra Castano Calcium [Mass/Vol] 9.7 mg/dL Normal 8.5-10.1 [facility] Comment on above: Performed By: #### M G, CMP, PHOS #### [facility] [address] [address] [address] Sandra Castano Chloride [Moles/Vol] 101 mmol/L Normal 98-107 [facility] Comment on above: Performed By: #### M G, CMP, PHOS #### [facility] [address] [address] [address] Sandra Castano CO2 [Moles/Vol] 30.9 mmol/L Normal 21.0-32.[address] [facility] Comment on above: Performed By: #### M G, CMP, PHOS #### [facility] [address] [address] [address] Sandra Castano Creatinine [Mass/Vol] 0.74 mg/dL Normal 0.55-1.02 [facility] Comment on above: Performed By: #### M G, CMP, PHOS #### [facility] [address] [address] [address] Sandra Castano EGFR-AF SAO TOMEAN >60 Normal >=60 [facility] Comment on above: Performed By: #### M G, CMP, PHOS #### [facility] [address] [address] [address] Sandra Castano EGFR-NON AF SAO TOMEAN >60 Normal >=60 [facility] Comment on above: Performed By: #### M G, CMP, PHOS #### [facility] [address] [address] [address] Sandra Castano Globulin (S) [Mass/Vol] 3.9 g/dL Normal [facility] Comment on above: Performed By: #### M G, CMP, PHOS #### [facility] [address] [address] [address] Sandra Castano Glucose [Mass/Vol] 98 mg/dL Normal 74-106 [facility] Comment on above: Performed By: #### M G, CMP, PHOS #### [facility] [address] [address] [address] Sandra Castano Potassium [Moles/Vol] 4.1 mmol/L Normal 3.5-5.1 [facility] Comment on above: Performed By: #### M G, CMP, PHOS #### [facility] [address] [address] [address] Sandra Castano Protein [Mass/Vol] 7.5 g/dL Normal 6.4-8.2 [facility] Comment on above: Performed By: #### M G, CMP, PHOS #### [facility] [address] [address] [address] Sandra Castano Sodium [Moles/Vol] 140 mmol/L Normal 136-145 [facility] Comment on above: Performed By: #### M G, CMP, PHOS #### [facility] [address] [address] [address] Sandra Castano Urea nitrogen [Mass/Vol] 7.0 mg/dL Normal 7.0-18.0 [facility] Comment on above: Performed By: #### M G, CMP, PHOS #### [facility] [address] [place] [address] Dr. Sandra Castano Urea nitrogen/Creatinin e [Mass ratio] 9.5 mg/mg Normal [facility] Comment on above: Performed By: #### M G, CMP, PHOS #### [facility] [address] [place] [address] Dr. Sandra Castano VIT B12 AND FOLATEon 022 Cobalamin (Vitamin B12) [Mass/Vol] 1075.0 pg/mL Critically high 193.0-986.0 [facility] Comment on above: Performed By: #### L IPA, CMP #### [facility] [address] [place] [address] Dr. Sandra Castano FOLATE 9.80 ng/mL Normal 8.60-58.90 [facility] Comment on above: Performed By: #### L IPA, CMP #### [facility] [address] [place] [address] Dr. Sandra Castano VITAMIN D 25 OHon 05-07-2022 VIT D 25-OH 96.8 ng/mL Normal [facility] Comment on above: Performed By: #### L IPA, CMP #### [facility] [address] [place] [address] Dr. Sandra Castano VIT D RANGES SEE BELOW Normal [facility] Comment on above: Result Comment: <20 ng/mL Vit D deficient 20 - <30 ng/mL Vit D insufficient 30 - 100 ng/mL Vit D sufficient >100 ng/mL Potential Toxicity Performed By: #### L IPA, CMP #### [facility] [address] [place] [address] Dr. Sandra Castano BLOOD BANKOrdered By: Latrice Lopez on 03-24-2022 ABO/Rh Interp AB NEG Invalid Interpretation Code [facility] BB Subsection ABSC Gel Interp Negative (03/24/22 8:33 AM) Normal [facility] BB Subsection VITAMIN B1 (THIAMINE)on 12-30 Vit. B1, Whole Blood 154.0 nmol/L Normal 66.5-200.0 [facility] Comment on above: Performed By: #### V ITB1T #### [facility] [address] [address] [address] Sandra Castano VIT D 25-OH [facility] 2021 Vitamin D, 25-Hydroxy 98.0 ng/mL Normal 30.0-100.0 [facility] Comment on above: Result Comment: Wanda min D deficiency has been defined by the [place] of [employer] and an Endocrine Society practice guideline as a level of serum 25-OH vitamin D less than 20 ng/mL (1,2). The Endocrine Society went on to further define vitamin D insufficiency as a level between 21 and 29 ng/mL (2). 1. IOM ([place] of [employer]). 2010. Dietary reference intakes for calcium and D. [place]: The National Academies Press. 2. [place] MF, Maya [place], Kesha OLGUIN, et al. Evaluation, treatment, and prevention of vitamin D deficiency: an Endocrine Society clinical practice guideline. JCEM. 2010; 96(7):1911-30. Performed By: #### L IPA, CMP #### [facility] [address] [address] [address] Sandra Castano CBC AUTO DIFFon 01-13-2022 BASO # 0.0 103/ul Normal 0.0-0.1 [facility] Comment on above: Performed By: #### L IPA, CMP #### [facility] [address] [place], [place] [address] Dr. Sandra Castano Basophils/100 WBC (Bld) 0.5 % Normal 0.2-2.0 [facility] Comment on above: Performed By: #### L IPA, CMP #### [facility] [address] [place], [place] [address] Dr. Sandra Castano EO # 0.1 103/ul Normal 0.0-0.7 [facility] Comment on above: Performed By: #### L IPA, CMP #### [facility] [address] [place] [address] Dr. Sandra Castano Eosinophils/100 WBC (Bld) 2.0 % Normal 0.9-7.0 [facility] Comment on above: Performed By: #### L IPA, CMP #### [facility] [address] [place] [address] Dr. Sandra Castano Erythrocyte distribution width (RBC) [Ratio] 13.7 % Normal 11.0-15.0 [facility] Comment on above: Performed By: #### L IPA, CMP #### [facility] [address] [place] [address] Dr. Sandra Castano Hematocrit (Bld) [Volume fraction] 39.9 % Normal 36.0-48.0 [facility] Comment on above: Performed By: #### L IPA, CMP #### [facility] [address] [place] [address] Dr. Sandra Castano Hemoglobin (Bld) [Mass/Vol] 13.0 g/dL Normal 12.0-16.0 [facility] Comment on above: Performed By: #### L IPA, CMP #### [facility] [address] [place] [address] Dr. Sandra Castano IG # 0.02 10e3/ul Normal 0.00-0.03 [facility] Comment on above: Performed By: #### L IPA, CMP #### [facility] [address] [place] [address] Dr. Sandra Castano IG % 0.3 % Normal 0.0-0.5 [facility] Comment on above: Performed By: #### L IPA, CMP #### [facility] [address] [place] [address] Dr. Sandra Castano LYMPH # 1.6 103/ul Normal 1.2-3.8 [facility] Comment on above: Performed By: #### L IPA, CMP #### [facility] [address] [place] [address] Dr. Sandra Castano Lymphocytes/100 WBC (Bld) 27.5 % Normal 20.5-60.0 [facility] Comment on above: Performed By: #### L IPA, CMP #### [facility] [address] [place] [address] Dr. Sandra Castano MANUAL DIFF REQ NO Normal [facility] Comment on above: Performed By: #### L IPA, CMP #### [facility] [address] [place] [address] Dr. Sandra Castano MCH (RBC) [Entitic mass] 29.2 pg Normal 26.7-34.0 [facility] Comment on above: Performed By: #### L IPA, CMP #### [facility] [address] [place] [address] Dr. Sandra Castano MCHC (RBC) [Mass/Vol] 32.6 g/dL Normal 29.9-35.2 [facility] Comment on above: Performed By: #### L IPA, CMP #### [facility] [address] [place] [address] Dr. Sandra Castano MCV (RBC) [Entitic vol] 89.7 fL Normal 81.0-99.0 [facility] Comment on above: Performed By: #### L IPA, CMP #### [facility] [address] [place] [address] Dr. Sandra Castano MONO # 0.4 103/ul Normal 0.3-0.8 [facility] Comment on above: Performed By: #### L IPA, CMP #### [facility] [address] [place] [address] Dr. Sandra Castano Monocytes/100 WBC (Bld) 6.6 % Normal 1.7-12.0 [facility] Comment on above: Performed By: #### L IPA, CMP #### [facility] [address] [place] [address] Dr. Sandra Castano NEUT # 3.7 103/ul Normal 1.4-6.5 [facility] Comment on above: Performed By: #### L IPA, CMP #### [facility] [address] [place] [address] Dr. Sandra Castano Neutrophils/100 WBC (Bld) 63.1 % Normal 43.0-75.0 [facility] Comment on above: Performed By: #### L IPA, CMP #### [facility] [address] [place] [address] Dr. Sandra Castano Platelet mean volume (Bld) [Entitic vol] 11.6 fL Normal 9.5-13.5 [facility] Comment on above: Performed By: #### L IPA, CMP #### [facility] [address] [place] [address] Dr. Sandra Castano PLT 256 103/ul Normal 150-450 [facility] Comment on above: Performed By: #### L IPA, CMP #### [facility] [address] [place] [address] Dr. Sandra Castano RBC 4.45 106/ul Normal 4.20-5.40 [facility] Comment on above: Performed By: #### L IPA, CMP #### [facility] [address] [place] [address] Dr. Sandra Castano WBC 5.9 103/ul Normal 4.0-11.0 [facility] Comment on above: Performed By: #### L IPA, CMP #### [facility] [address] [place] [address] Dr. Sandra Castano FERRITINon 01-13-2022 Ferritin [Mass/Vol] 108.0 ng/mL Normal 6.2-137.0 [facility] Comment on above: Performed By: #### C ALCULI #### [facility] [address] [place] [address] Dr. Sandra Castano IRON AND TIBCon 01-13-2022 % SATURATION 20.6 % Normal [facility] Comment on above: Performed By: #### C ALCULI #### [facility] [address] [place] [address] Dr. Sandra Castano Iron [Mass/Vol] 47.0 ug/dL Critically low 50.0-170.0 [facility] Comment on above: Performed By: #### C ALCULI #### [facility] [address] [place] [address] Dr. Sandra Castano TIBC DIRECT 228.0 ug/dL Critically low 250.0-450.0 [facility] Comment on above: Performed By: #### C ALCULI #### [facility] [address] [place] [address] Dr. Sandra Castano MAGNESIUMon 01-13-2022 Magnesium [Mass/Vol] 1.7 mg/dL Critically low 1.8-2.4 [facility] Comment on above: Performed By: #### C ALCULI #### [facility] [address] [place] [address] Dr. Sandra Castano PHOSPHORUSon 01-13-2022 Phosphate [Mass/Vol] 3.4 mg/dL Normal 2.6-4.7 [facility] Comment on above: Performed By: #### L IPA, CMP #### [facility] [address] [place] [address] Dr. Sandra Castano PROF 14(COMP METB)on 022 Albumin [Mass/Vol] 3.8 g/dL Normal 3.4-5.0 [facility] Comment on above: Performed By: #### C ALCULI #### [facility] [address] [place] [address] Dr. Sandra Castano Albumin/Globulin [Mass ratio] 1.1 {ratio} [facility] Comment on above: Performed By: #### C ALCULI #### [facility] [address] [place] [address] Dr. Sandra Castano ALP [Catalytic activity/Vol] 78 U/L Normal 46-116 [facility] Comment on above: Performed By: #### C ALCULI #### [facility] [address] [place] [address] Dr. Sandra Castano ALT [Catalytic activity/Vol] 34 U/L Normal 14-59 [facility] Comment on above: Performed By: #### C ALCULI #### [facility] [address] [place] [address] Dr. Sandra Castano Anion gap [Moles/Vol] 10.8 mmol/L Normal [facility] Comment on above: Performed By: #### C ALCULI #### [facility] [address] [address] [address] Sandra Castano AST [Catalytic activity/Vol] 20 U/L Normal 15-37 [facility] Comment on above: Performed By: #### C ALCULI #### [facility] [address] [address] [address] Sandra Castano Bilirubin [Mass/Vol] 0.5 mg/dL Normal 0.2-1.0 [facility] Comment on above: Performed By: #### C ALCULI #### [facility] [address] [address] [address] Sandra Castano Calcium [Mass/Vol] 9.2 mg/dL Normal 8.5-10.1 [facility] Comment on above: Performed By: #### C ALCULI #### [facility] [address] [place] [address] Dr. Sandra Castano Chloride [Moles/Vol] 102 mmol/L Normal 98-107 [facility] Comment on above: Performed By: #### C ALCULI #### [facility] [address] [address] [address] Sandra Castano CO2 [Moles/Vol] 31.2 mmol/L Normal 21.0-32.0 [facility] Comment on above: Performed By: #### C ALCULI #### [facility] [address] [place] [address] Dr. Sandra Castano Creatinine [Mass/Vol] 0.78 mg/dL Normal 0.55-1.02 [facility] Comment on above: Performed By: #### C ALCULI #### [facility] [address] [place] [address] Dr. Sandra Castano EGFR-AF SAO TOMEAN >60 Normal >=[address] [facility] Comment on above: Performed By: #### C ALCULI #### [facility] Laboratory [address] [place] [address] Dr. Sandra Castano EGFR-NON AF SAO TOMEAN >60 Normal >=60 [facility] Comment on above: Performed By: #### C ALCULI #### [facility] [address] [address] [address] Sandra Castano Globulin (S) [Mass/Vol] 3.6 g/dL Normal [facility] Comment on above: Performed By: #### C ALCULI #### [facility] [address] [address] [address] Sandra Castano Glucose [Mass/Vol] 101 mg/dL Normal 74-106 [facility] Comment on above: Performed By: #### C ALCULI #### [facility] [address] [address] [address] Sandra Castano Potassium [Moles/Vol] 4.0 mmol/L Normal 3.5-5.1 [facility] Comment on above: Performed By: #### C ALCULI #### [facility] [address] [place] [address] Dr. Sandra Castano Protein [Mass/Vol] 7.4 g/dL Normal 6.4-8.2 [facility] Comment on above: Performed By: #### C ALCULI #### [facility] [address] [place] [address] Dr. Sandra Castano Sodium [Moles/Vol] 140 mmol/L Normal 136-145 [facility] Comment on above: Performed By: #### C ALCULI #### [facility] [address] [place] [address] Dr. Sandra Castano Urea nitrogen [Mass/Vol] 14.0 mg/dL Normal 7.0-18.0 [facility] Comment on above: Performed By: #### C ALCULI #### [facility] [address] [place] [address] Dr. Sandra Castano Urea nitrogen/Creatinin e [Mass ratio] 17.9 mg/mg Normal [facility] Comment on above: Performed By: #### C ALCULI #### [facility] [address] [place] [address] Dr. Sandra Castano VIT B12 AND FOLATEon 022 Cobalamin (Vitamin B12) [Mass/Vol] 1475.0 pg/mL Critically high 193.0-986.0 [facility] Comment on above: Performed By: #### C ALCULI #### [facility] [address] [place], [place] [address] Dr. Sandra Castano FOLATE 11.80 ng/mL Normal 8.60-58.90 [facility] Comment on above: Performed By: #### C GEETHA #### [facility] [address] [place], [place] [address] Dr. Sandra Castano MG MAMM SCREEN 3D SRINATH CADon 12-03-2021 MG MAMM SCREEN 3D SRINATH CAD Patient: ELIDA CALVILLO Exam Date: 12/03/2021 : 1975 Gender:F Ordering : DR LUDY LAINEZ . Admission #: [id number] Family : Order #: [id number] CLICK HERE TO VIEW EXAM RADIOLOGY REPORT [...] colon cancer at age 67. LOCATION: [facility] BREAST COMPOSITION: Scattered areas fibroglandular density. [...] M.D. on 12/03/2021 at 12:49 Normal [facility] LOWER EXTREMITY JOINT SURVEY on 02-19-2021 LOWER EXTREMITY JOINT SURVEY [facility] Department of Radiology [address] [place] [id number] ===== Patient Name: ELIDA CALVILLO : [...] extremity. Electronically signed: Dylon Duenas. Transcribed by: [email or web address], User Resident: Electronically Signed by: DYLON DUENAS @ 02/20/2021 12:06 PM Normal [facility] Comment on above: Order Comment: Evalu ate Vital Signs Date Time Vital Sign Value Performing Clinician Facility 2023 09:02-0400 Blood Pressure Location Romi Lue [facility] 2023 09:02-0400 Diastolic blood pressure 82 mm[Hg] Romi Lue [facility] 2023 09:02-0400 Heart rate 77 /min Romi Lue [facility] 2023 09:02-0400 Respiratory rate 16 /min Romi Lue [facility] 2023 09:02-0400 Systolic blood pressure 135 mm[Hg] Romi Lue [facility] 06-10-2023 09:20-0500 Diastolic blood pressure 80 mm[Hg] Romi Lue [facility] 06-10-2023 09:20-0500 Mean blood pressure 101 mm[Hg] Romi Lue [facility] 06-10-2023 09:20-0500 Systolic blood pressure 142 mm[Hg] Romi Lue [facility] 06-10-2023 09:06-0500 Blood Pressure Location Romi Lue [facility] 06-10-2023 09:06-0500 Diastolic blood pressure 86 mm[Hg] Romi Lue [facility] 06-10-2023 09:06-0500 Heart rate 71 /min Romi Lue [facility] 06-10-2023 09:06-0500 Systolic blood pressure 144 mm[Hg] Romi Lue [facility] 09-04-2022 08:32-0400 Blood Pressure Location Romi Lue [facility] 09-04-2022 08:32-0400 Diastolic blood pressure 82 mm[Hg] Romi Lue [facility] 09-04-2022 08:32-0400 Heart rate 57 /min Romi Lue [facility] 09-04-2022 08:32-0400 Respiratory rate 16 /min Romi Lue [facility] 09-04-2022 08:32-0400 Systolic blood pressure 138 mm[Hg] Romi Lue [facility] 07-02-2022 09:14-0500 Blood Pressure Location Romi Lue [facility] 07-02-2022 09:14-0500 Diastolic blood pressure 78 mm[Hg] Romi Lue [facility] 07-02-2022 09:14-0500 Heart rate 68 /min Romi Lue [facility] 07-02-2022 09:14-0500 Respiratory rate 16 /min Romi Lue [facility] 07-02-2022 09:14-0500 Systolic blood pressure 124 mm[Hg] Romi Sarmiento [facility] 03-24-2022 16:38-0400 Blood Pressure Location Miles Guevara [facility] 03-24-2022 16:38-0400 Diastolic blood pressure 78 mm[Hg] Miles Guevara [facility] 03-24-2022 16:38-0400 Heart rate 61 /min Miles Guevara [facility] 03-24-2022 16:38-0400 Mean blood pressure 95 mm[Hg] Miles Guevara [facility] 03-24-2022 16:38-0400 Respiratory rate 18 /min Miles Guevara [facility] 03-24-2022 16:38-0400 SaO2% (BldA) [Mass fraction] 98 % Miles Guevara [facility] 03-24-2022 16:38-0400 Systolic blood pressure 131 mm[Hg] Miles Guevara [facility] 03-24-2022 15:16-0400 Blood Pressure Location Miles Guevara [facility] 03-24-2022 15:16-0400 Diastolic blood pressure 75 mm[Hg] Miles Guevara [facility] 03-24-2022 15:16-0400 Heart rate 66 /min Mlies Guevara [facility] 03-24-2022 15:16-0400 Mean blood pressure 96 mm[Hg] Miles Guevara [facility] 03-24-2022 15:16-0400 Respiratory rate 18 /min Miles Guevara [facility] 03-24-2022 15:16-0400 SaO2% (BldA) [Mass fraction] 98 % Miles Ismael [facility] 03-24-2022 15:16-0400 Systolic blood pressure 138 mm[Hg] Miles Guevara [facility] 03-24-2022 13:37-0400 Blood Pressure Location Miles Ismael [facility] 03-24-2022 13:37-0400 Diastolic blood pressure 74 mm[Hg] Miles Guevara [facility] 03-24-2022 13:37-0400 Heart rate 65 /min Miles Guevara [facility] 03-24-2022 13:37-0400 Mean blood pressure 106 mm[Hg] Miles Guevara [facility] 03-24-2022 13:37-0400 Respiratory rate 18 /min Miles Guevara [facility] 03-24-2022 13:37-0400 SaO2% (BldA) [Mass fraction] 100 % Miles Guevara [facility] 03-24-2022 13:37-0400 Systolic blood pressure 171 mm[Hg] Miles Guevara [facility] 03-24-2022 13:30-0400 Body temperature 98.24 [degF] Miles Guevara [facility] 03-24-2022 13:30-0400 Respiratory rate 10 /min Miles Guevara [facility] 03-24-2022 13:15-0400 Respiratory rate 11 /min Miles Guevara [facility] 03-24-2022 13:00-0400 Respiratory rate 13 /min Miles Guevara [facility] 03-24-2022 12:30-0400 Body temperature 98.06 [degF] Miles Guevara [facility] 03-24-2022 08:21-0400 Body temperature 97.7 [degF] Miles Guevara [facility] 03-24-2022 08:21-0400 Heart rate 72 /min Miles Guevara [facility] Encounters Encounter Date Encounter Type Care Provider Facility Start: 01-13-2024 End: 01-13-2024 ambulatory Romi M. Lue Facility:CD:[id number] Start: 01-13-2024 End: 01-13-2024 ambulatory Romi M. Lue Facility:[facility] [place] Start: 01-13-2024 End: 01-13-2024 Off-Site Romi M. Lue [facility] [place] Start: 2023 End: 2023 ambulatory Romi M. Lue Facility: [facility] Start: 2023 End: 2023 Patient encounter procedure Romi M. Maydae [facility] [place] Start: 11-19-2023 End: 11-19-2023 ambulatory MARSHALL LYON Not Available Start: 10-27-2023 End: 10-27-2023 Lab Drop off Radha L Felipa [facility] Start: 10-27-2023 End: 10-27-2023 ambulatory Radha L Felipa Facility:[facility] Start: 10-14-2023 End: 10-14-2023 ambulatory Radha L Felipa Facility:[facility] Start: 09-11-2023 End: 09-11-2023 ambulatory Radha L Felipa Facility:[facility] Start: 06-10-2023 End: 06-10-2023 [facility] Start: 06-10-2023 End: 06-10-2023 Patient encounter procedure Romi Patel. Lue [facility] Start: 10-24-2022 End: 10-24-2022 Lab Drop off Radha Leo [facility] Start: 09-04-2022 End: 09-05-2022 ambulatory ROMI M LUE . Facility:[facility] Start: 09-04-2022 End: 09-04-2022 Patient encounter procedure Romi M. Lue [facility] [place] Start: 08-30-2022 End: 08-31-2022 ambulatory ROMI M LUE . Facility:[facility] Start: 07-30-2022 End: 07-30-2022 ambulatory ROMI M LUE . Facility:[facility] Start: 07-24-2022 Encounter for preprocedural laboratory examination ROMI M LUE . [facility] Start: 07-18-2022 End: 07-19-2022 ambulatory ERICK KRAFT Facility:[facility] Start: 07-18-2022 End: 07-19-2022 Encounter for preprocedural laboratory examination ERICK KRAFT Facility:[facility] Start: 07-10-2022 End: 07-11-[address] ETTA CEDEÑO Facility:[facility] Start: 07-02-2022 End: 07-02-2022 Patient encounter procedure Romi M. Lue [facility] Start: 06-30-2022 End: 07-01-[address] ETTA CEDEÑO Facility:[facility] Start: 06-13-2022 End: 06-13-2022 Patient encounter procedure Romi M. Lue [facility] [place] Start: 06-06-2022 End: 06-07-[address] ETTA CEDEÑO Facility:[facility] Start: 05-27-2022 End: 05-28-[address] CINDI LINDA . Facility:[facility] Start: 05-07-2022 End: 05-08-[address] DOCTOR PALACIOS Facility:[facility] Start: 03-24-2022 End: 03-24-2022 Admission to same day surgery center Miles Guevara [facility] Start: 01-13-2022 End: 01-14-2022 ambulatory MARY SOTO Facility:[facility] Start: 12-03-2021 End: 12-04-[address] LUDY LAINEZ . Facility: Procedures Date Procedure Procedure Detail Performing Clinician Start: 07-30-2022 Lipoatrophy (disorder) Radha Leo Start: 06-01-1992 History of operative procedure on knee Miles Guevara Esophagogastrostomy, antesternal or antethoracic Miles Guevara Extraction of wisdom tooth M ichjalen Guevara H/O: tubal ligation Miles Guevara Hand tendon operation Rosie Guevara Plan of Treatment Date Care Activity Detail Author Start: 03-09-2024 ambulatory Ambulatory Facility:[facility] Immunizations Immunization Date Immunization Notes Care Provider Kari colindres 03-17-2023 influenza virus vaccine, unspecified formulation Romi Sarmiento [facility] 03-06-2023 influenza virus vaccine, unspecified formulation Romi Sarmiento [facility] 04-28-2022 influenza virus vaccine, unspecified formulation Romi Sarmiento [facility] 04-28-2022 SARS-CoV-2 (COVID-19 ) [id number] Romi Lue [facility] 05-21-2021 SARS-CoV-2 (COVID-19 ) mRNA BNT-162b2 vax Romi Lue [facility] 03-08-2021 influenza virus vaccine, unspecified formulation Romi Lue [facility] 09-20-2020 SARS-CoV-2 (COVID-19 ) mRNA BNT-162b2 vax Romi Lue [facility] 08-30-2020 SARS-CoV-2 (COVID-19 ) mRNA BNT-162x1 vax Romi Lue [facility] 02-08-2020 influenza virus vaccine, unspecified formulation Romi Lue [facility] 02-15-2019 influenza virus vaccine, unspecified formulation Romi Lue [facility] 01-29-2019 influenza virus vaccine, unspecified formulation Romi Lue [facility] 03-06-2018 influenza virus vaccine, unspecified formulation Romi Lue [facility] 02-26-2015 influenza virus vaccine, unspecified formulation Romi Lue [facility] 02-25-2014 influenza virus vaccine, unspecified formulation Romi Lue [facility] 04-24-2013 influenza virus vaccine, unspecified formulation Romi Lue [facility] [place] Payers Date Payer Category Payer Unknown [id number] 2.16.84 [id number] 1975 Unknown [id number] 2.16.84 0.1.536186.3.579.2.593 1975 Unknown [id number] 2.16.84 0.1.197646.3.579.2.593 1975 Unknown [id number] 2.16.84 0.1.411993.3.579.2.593 1975 Unknown [id number] 2.16.84 0.1.784568.3.579.2.593 1975 Unknown [id number] 2.16.84 0.1.345728.3.579.2.593 1975 Unknown [id number] 2.16.84 0.1.742527.3.579.2.593 1975 Unknown [id number] 2.16.84 0.1.196775.3.579.2.593 1974 Unknown [id number] 2.16.84 0.1.634497.3.579.2.593 1974 Unknown [id number] 2.16.84 0.1.437909.3.579.2.593 1974 Unknown [id number] 2.16.84 0.1.890699.3.579.2.593 1975 Unknown [id number] 2.16.84 0.1.338101.3.579.2.1259 1974 Unknown [id number] 2.16.8 40.1.643880.3.579.2.727 1975 Unknown [id number] 2.16.8 40.1.661592.3.579.2.727 1974 Unknown [id number] 2.16.8 40.1.821180.3.579.2.727 1975 Unknown [id number] 2.16.8 40.1.408736.3.579.2.727 1974 Unknown [id number] 2.16.8 40.1.325495.3.579.2.7 1974 Unknown [id number] 2.16.8 40.1.649828.3.579.2.7 1974 Unknown [id number] 2.16.8 40.1.954502.3.579.2.7 1974 Unknown [id number] 2.16.8 40.1.648010.3.579.2.727 1959 Unknown [id number] 1960 Unknown [id number] Self-pay Self Pay [id number] Social History Date Type Detail [facility] Start: 1975 Sex Assigned At Female F [facility] Tobacco smoking status No Smokin g Status Entered [facility] Sex Assigned At Female [facility] Start: 06-13-2022 End: 2023 Tobacco smoking status Never smoked tobacco (finding) [facility] Tobacco smoking status Never [facility] Medical Equipment Procedure Code Equipment Code Equipment [...] Guevara DO 03/24/22 Non Biological Knee R {[id number] {[id number]{17} [id number] FDA Start: 03-24-2022 Goals Date Patient Goal Desired Activity /State Functional Status Date Assessment Result Facility 2023 Functional Status N/A [facility] 06-10-2023 Functional Status N/A [facility] 09-04-2022 Functional Status N/A [facility] [place] 07-02-2022 Functional Status N/A [facility] 06-13-2022 Functional Status N/A [facility] Wendy Clinical Notes 03-24-2022 to 2023 Note Date [...] including vitamins, herbs, eye drops, creams, and xjdw-kiq-kyxsptg medicines. Any problems you or family members [...] provider tells you to take them. ?Taking zvlm-nst-ezatfhy medicines, vitamins, herbs, and supplements. Eating and [...] provider. Document Revised: 09/24/2022 Document Reviewed: 01/20/2022 [employer] Patient Education 2022 [employer] 2023 09:55:50 Laser Therapy for Kidney [...] Follow these instructions at home: Medicines Take refo-jem-crpiwbi and prescription medicines only as told by [...] prevent or treat constipation, such as: ?Take ztsz-mte-sprlovn or prescription medicines. ?Eat foods that are [...] provider. Document Revised: 09/24/2022 Document Reviewed: 01/20/2022 [employer] Patient Education 2022 [employer]. Follow Up Care 06/10/2023 09:53:36 With:Torsten DIAMOND, KT Jolley, URO Address: [address] [place] [phone] When: Unknown [facility] 2023 Note Patient Education Nephrology Laser Therapy [...] including vitamins, herbs, eye drops, creams, and wwkb-gbf-mlqzzzy medicines. ? Any problems you or family [...] tells you to take them. ? Taking rraj-sxd-dxjnojr medicines, vitamins, herbs, and supplements. Eating and [...] into your kidney (more content not included)... [facility] [place] 06-10-2023 Hospital Discharg e instructions Patient Education [...] include: ?8 oz (237 mL) of milk, cmnofoe-khbgjkabhhme-tfwfs milk, and calcium-fortifiedfruit juice. Calcium-fortified means that [...] ?Spinach (cooked), rhubarb, beets, sweet potatoes, and Polish chard. ?Peanuts. ?Potato chips, malian fries, and baked potatoes with skin on. ?Nuts and nut products. ?Chocolate. If you regularly take a diuretic medicine, make sure to eat at least 1 or 2 servings of fruits or vegetables that are high in potassium each day. These include: ?Avocado. ?Banana. ?[place], prune, carrot, or tomato juice. ?Baked potato. [...] magnesium, fish oil, or vitamin B6. Take uupz-dqb-tbbdcbq and prescription medicines only as told by [...] Casseroles. Pizza. Lasagna. Frozen meals. Potato chips. [place] fries. The items listed above may not [...] provider. Document Revised: 08/28/2022 Document Reviewed: 08/28/2022 [employer] Patient Education 2022 [employer]. Follow Up Care 12/03/2022 08:49:17 With:Torsten DIAMOND, KT Jolley, URO Address: [address] [place] [address]- [phone] When: Unknown Comments:6 mos w/ NEAL and OSCAR [facility] 09-04-2022 Hospital Discharg e instructions Patient Education 09/04/2022 09:31:21 Kidney Stones, Lhat-ym-Aynp Kidney Stones Kidney stones are rock-like masses [...] Follow these instructions at home: Medicines Take niji-fvf-sedhtdg and prescription medicines only as told by [...] 11/03/2008 Document Revised: 10/04/2019 Document Reviewed: 10/04/2019 [employer] Patient Education 2019 [employer]. Follow Up Care 08/01/2022 14:22:05 With:Torsten DIAMOND, KT Jolley, URO Address: When: Unknown [facility] 07-02-2022 Hospital Discharg e [...] include: ?Spinach. ?Rhubarb. ?Beets. ?Potato chips and malian fries. ?Nuts. If you regularly take a diuretic medicine, make sure to eat at least 1 2 fruits or vegetables high in potassium each day. These include: ?Avocado. ?Banana. ?[place], prune, carrot, or tomato juice. ?Baked potato. [...] Casseroles. Pizza. Lasagna. Frozen meals. Potato chips. [place] fries. Summary You can reduce your risk [...] 09/12/2011 Document Revised: 09/07/2019 Document Reviewed: 04/28/2017 [employer] Patient Education 2020 [employer]. Follow Up Care 06/13/2022 11:44:22 With:Torsten DIAMOND, KT Jolley, URO Address: When: Unknown [facility] 06-13-2022 Hospital Discharg e instructions Patient [...] include: ?Spinach. ?Rhubarb. ?Beets. ?Potato chips and malian fries. ?Nuts. If you regularly take a diuretic medicine, make sure to eat at least 1 2 fruits or vegetables high in potassium each day. These include: ?Avocado. ?Banana. ?[place], prune, carrot, or tomato juice. ?Baked potato. [...] Casseroles. Pizza. Lasagna. Frozen meals. Potato chips. [place] fries. Summary You can reduce your risk [...] 09/12/2011 Document Revised: 09/07/2019 Document Reviewed: 04/28/2017 [employer] Patient Education 2019 [employer]. Follow Up Care 05/29/2022 15:18:35 With:Torsten DIAMOND, KT Jolley, URO Address: When: Unknown [facility] [place] 03-24-2022 Hospital Discharg e instructions Patient Education [...] as possible. If the spirometer includes a customer care team coach indicator, use this to guide you [...] 09/28/2007 Document Revised: 06/10/2018 Document Reviewed: 03/31/2018 [employer] Patient Education 2020 [employer]. 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 It is therefore advised not to drive until after your first office visit following surgery FOLLOW-UP OFFICE VISIT: Miles Guevara, DO [facility] [address] [place] [id number] Reviewed: 09-06 Follow Up Care 02/13/2022 09:46:16 With:Miles Guevara Address: [address] [place] [phone] (1) When: Unknown Comments:Keep scheduled appointment [facility] 03-24-2022 Evaluation + Plan note Extrac mulu from: Title:Post-anesthesia - General Author:Ashvin Gipson DO Date:03/24/22 Plan Transfer/ Discharge: Condition stable. Extracted from: Title:Pre-anesthesia - Adult Author:Ashvin Bartlett Jr., DO Date:03/24/22 Plan Citizen Of [place] Society of Anesthesiologists (ASA) physical status classification: Class II. Anesthetic Preoperative Plan Anesthesia: General. , Regional Adductor canal block. Anesthetic plan, risks, benefits, and alternatives discussed with the patient and/or family. Patient verbalized understanding. Adverse reactions, complications, and alternatives discujssed. Consent signed and on chart.. [facility]ments Appointment Date:07/02/2022 09:30:00 AM Scheduled Provider:Romi Sarmiento MD Location:[facility] Appointment Type:URO Office Visit [facility] Evaluation + Plan note Future Appointments Appointment Date:10/20/2022 03:30:00 PM Scheduled Provider:Romi Sarmiento MD Location:[facility] Appointment Type:URO Video Visit Diagnostic Tests Pending * PTH Intact 09/04/22 * Uric Acid 09/04/22 [facility] Evaluation + Plan note Future Appointments Appointment Date:12/03/2022 08:30:00 AM Scheduled Provider:Romi Sarmiento MD Location:[facility] Appointment Type:URO Office Visit Diagnostic Tests Pending * PAP [id number] w/ HPV and Genotype rflx [facility] Future App[facility]ments Appointment Date:2023 09:00:00 AM Scheduled Provider:Romi Sarmiento MD Location:[facility] Appointment Type:URO Office Visit [facility] evaluation + Plan note Future Appointments Appointment Date:2023 09:00:00 AM Scheduled Provider:Romi Sarmiento MD Location:[facility] Appointment Type:URO Office Visit Diagnostic Tests Pending * PAP [id number] w/ HPV and Genotype rflx [facility] N[facility] No data available for this section [facility] No data available for this section [facility] No data available for this section [facility] Assessments No Assessments Information Available Summary Purpose Family History No Family History Records FoundNo Family History Records Found No data available for this section No data available for this section No Family History Records Found No data available for this section No data available for this section No Family History Records FoundNo Family History Records Found Advance Directives No Advanced Directives Records FoundNo Advanced Directives Records FoundNo Advanced Directives Records FoundNo Advanced Directives Records FoundNo Advanced Directives Records Found Additional Source Comments INFORMATION SOURCE (unrecogn ized section and content) DATE CREATED AUTHOR 02/21/[address] [facility] DATE CREATED AUTHOR AUTHOR'S ORGANIZ ATION 09/14/2022 [facility] DATE CREATED AUTHOR AUTHOR'S ORGANIZ ATION 11/21/2023 [facility] EPIC DATE CREATED AUTHOR AUTHOR'S ORGANIZ ATION 01/26/2024 [facility] DATE CREATED AUTHOR AUTHOR'S ORGANIZ ATION 02/05/2024 [facility] Patient Care team informatio n (unrecognized section and content) Personnel Name: LUDY LAINEZ MD Address: Address: [address] [place] [address] Personnel Name: LUDY LAINEZ MD Address: Address: [address] [place] [address] Personnel Name: LUDY LAINEZ MD Address: Address: [address] [place] [address] Personnel Name: LUDY LAINEZ MD Address: Address: [address] [place] [address] Personnel Name: Radha Farley Address: Address: [address] [place] [address] Personnel Name: Radha Farley Address: Address: [address] [place], [place] [id number]- Personnel Name: Radha Farley Address: Address: [address] [place] [address]- Personnel Name: Radha Farley Address: Address: [address] [place], [place] [id number]- Personnel Name: Radha Farley Address: Address: [address] [place] [address]- FOR RECORDS PERTAINING TO PATIENTS WHO ARE [...] BE BASED ON THE PRIMARY CLINICAL RECORDS. [employer] [facility]. provides no warranty or guarantee of the accuracy or completeness of information in this document.
--- NOTE | 2024-03-04 09:50 | XR_ITS ---
The [address] [address] Patient Name: JASMIN CALVILLO MRN: [id number] date: 1975 Sex: F Assigned Patient Location: Current Patient Location: Accession/Order Number: [id number] Exam Date: 03/04/2024 09:45 Report Date: 03/06/2024 06:44 At the request of: MARCELINO STEVENS Procedure: XR abdomen 1V EXAMINATION: XR abdomen 1V HISTORY: Kidney Stone N20.0, Ureteral Stone N20.1 COMPARISON: No relevant comparison available. FINDINGS: KIDNEY/URETER - RIGHT: 5 mm stone projecting over inferior pole of kidney. KIDNEY/URETER - LEFT: No visible renal or ureteral calcifications. PELVIS: No visible ureteral stones. Numerous tiny calcifications within the pelvis; grossly stable and favoring phleboliths. BOWEL: No abnormal dilation or deviation. Bowel sutures and clips within lower left abdomen. BONES: No acute abnormality. OTHER: Fallopian tube clips within pelvis. XR/XR abdomen 1V IMPRESSION: 1. Right nephrolithiasis. Electronically authenticated by: ETTA DICKSON Date: 03/06/2024 06:44
== END 2024-03-04 09:36 | disposition home or self-care (01) ==
LOC: US 09:35
PROVIDERS: PCP Nurse Practitioner; Visit Provider Urology
DX: N20.1 Calculus of ureter (principal); N20.0 Calculus of kidney; N13.30 Unspecified hydronephrosis
CPT/HCPCS: 74018; 76775

== ENCOUNTER 2024-05-23 09:57 | Outpatient (OUT) | payer OTHER, SELFPAY ==
[2024-05-23 11:02] LABS: Anion Gap 12.8; BUN Creatinine Ratio 13.3; Calcium 8.9 mg/dL (8.5-10.1); Carbon Dioxide 29.6 mmol/L (21.0-32.0); Chloride 105 mmol/L (98-107); Estimated GFR (African America >60 (>=60 mL/min/1.73m^2); Estimated GFR (Non-African Ame >60 (>=60 mL/min/1.73m^2); Glucose 91 mg/dL (74-106); Potassium 4.4 mmol/L (3.5-5.1); Sodium 143 mmol/L (136-145)
== END 2024-05-23 09:58 | disposition home or self-care (01) ==
LOC: LAB 09:57
PROVIDERS: PCP Nurse Practitioner; Visit Provider Urology
DX: N20.0 Calculus of kidney (principal)
CPT/HCPCS: 36415; 80048

== ENCOUNTER 2025-01-13 10:15 | Outpatient (OUT) | payer OTHER, SELFPAY ==
--- OUTSIDE RECORDS SUMMARY | 2025-01-04 23:59 | XMS_ITS | Continuity of Care Document ---
Author Organization [facility] Address Unknown Care Team Providers Care Corrosion Control Specialist Name Role Phone Radha Leo Primary Care Physician Encounter _[facility] [id number] Date(s): 01/04/25 - 01/04/25 [facility] [address] [facility], [place] [address] Discharge Disposition: Home (Routine DC) Attending Physician: Rmoi Sarmiento MD Admitting Physician: Romi Sarmiento MD Referring Physician: Romi Sarmiento MD Encounter Type: Outpatient Allergies, Adverse Reactions, Alerts No Known Medication Allergies Assessment and Plan Future Appointments Appointment Date:01/11/2025 08:15:00 AM Scheduled Provider:Romi Sarmiento MD Location:[facility] Appointment Type:URO Office Visit Immunizations Given and Recorded Vaccine Date Status Refusal Reason influenza virus vaccine, inactivated 02/10/24 Rizwan rded influenza virus vaccine, inactivated 03/17/23 Rizwan rded influenza virus vaccine, inactivated 03/06/23 Rizwan rded influenza virus vaccine, inactivated 04/28/22 Rizwan rded influenza virus vaccine, inactivated 03/08/21 Rizwan rded influenza virus vaccine, inactivated 02/08/20 Rizwan rded influenza virus vaccine, inactivated 02/15/19 Rizwan rded influenza virus vaccine, inactivated 01/29/19 Rizwan rded influenza virus vaccine, inactivated 03/06/18 Rizwan rded influenza virus vaccine, inactivated 02/26/15 Rizwan rded influenza virus vaccine, inactivated 02/25/14 Rizwan rded influenza virus vaccine, inactivated 04/24/13 Rizwan rded SARS-CoV-2 (COVID-19) [id number] 04/28/22 Recorded SARS-CoV-2 (COVID-19) mRNA BNT-162b2 vax 05/21/21 Recorded SARS-CoV-2 (COVID-19) mRNA BNT-162b2 vax 09/20/20 Recorded SARS-CoV-2 (COVID-19) mRNA BNT-162b2 vax 08/30/20 Recorded Medications Bariatric Multivitamins with 45 mg Iron oral capsule 1 cap(s), Oral, Daily, Prophylaxis Start Date: 02/26/22 Status: Ordered Repeat number: 1 K-Effervescent 25 mEq oral tablet, effervescent 25 mEq = 1 tab(s), Oral, Daily, # 30 tab(s), Refills(s) 11, [facility]: [id number], 165, cm, 03/09/24 9:36:00 EDT, Height/Length Dosing, 66, kg, 03/09/24 9:36:00 EDT, Weight Dosing Start Date: 03/09/24 Status: Ordered Quantity: 30.0 Unit: tab(s) Repeat number: 12 omeprazole 40 mg Cap-DR See Instructions, TAKE 1 CAPSULE BY MOUTH DAILY, # 90 cap(s), Refills(s) 0, Pharmacy: [facility] #[id number], 165, cm, 11/28/24 10:01:00 EDT, Height/Length Dosing, 63, kg, 11/28/24 10:01:00 EDT,Weight Dosing Start Date: 11/30/24 Status: Ordered Quantity: 90.0 Unit: cap(s) Repeat number: 1 oxybutynin 5 mg Tab 5 mg = 1 tab(s), Oral, BID, PRN for urinary discomfort, Take for kidney stone event., # 60 tab(s), Refills(s) 1, Pharmacy: [facility] #[id number], 165, cm, 07/06/24 9:01:00 EST, Height/Length Dosing, 67, kg, 07/06/24 9:01:00 EST, Weight Dosing Start Date: 07/06/24 Status: Ordered Quantity: 60.0 Unit: tab(s) Repeat number: 2 Indications: Calculus of kidney; tamsulosin 0.4 mg Cap 0.4 mg = 1 cap(s), Oral, Daily, Take for kidney stone event., # 30 cap(s), Refills(s) 1, [id number], 165, cm, 07/06/24 9:01:00 EST, Height/Length Dosing, 67, kg, 07/06/24 9:01:00 EST, Weight Dosing Start Date: 07/06/24 Status: Ordered Quantity: 30.0 Unit: cap(s) Repeat number: 2 Indications: Calculus of kidney; Problem List Condition Confirmation Course Effective Dates Status H ealth Status Informant 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 Arthritis Confirmed Active Asymptomatic microscopic hematuria Confirmed Active BMI 24.0-24.9, adult Confirmed Active Cervical cancer screening Confirmed Active Abnormal menstruation Confirmed Active Foot drop, right Confirmed Active Foot-drop Confirmed 02/19/21 Active GERD (gastroesophageal reflux disease) Confirmed Active Hernia of anterior abdominal wall Confirmed Active Hydronephrosis Confirmed Active Hypertension Confirmed Active Kidney stones Confirmed Active Non-smoker Confirmed Active Osteoarthritis of knee Confirmed Active Osteoarthritis of knee Confirmed 02/19/21 Active Pelvic pain Confirmed Active 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/19/21 Active Well woman exam Confirmed Active Breast cancer screening by mammogram Confirmed Active Rupture of anterior cruciate ligament Confirmed 02/19/21 Active Procedures Procedure Date Related Diagnosis Body Site Status 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 Completed History of knee surgery drop foot nerve damage 1992 Completed Extraction of wisdom tooth Completed Gastric bypass operation Completed H/O: tubal ligation Compl eted Hand tendon operation fx Completed Social History Social History Type Response Smoking Status Never (less than 100 in lifetime);Never entered on: 11/28/24 Sex Female Sex Representation Female (finding) Implantable Device List Procedure Provider Procedure Date Device Type Site KNEE TOTAL ARTHROPLASTY Miles Guevara DO 03/24/22 No n Biological Knee R Device Identifier Serial Number Lot or Batch Number Manufacturing Date Expiration Date Distinct Identification Code MRI Safety Implantable Status Assigning Authority [id number] Unknown [id number] Unknown 08/30/23 Unknown Unknown Active GS1 Unknown Unknown [id number] Unknown 01/29/27 Unknown Unknown Active Unk nown Unknown Unknown [id number] Unknown 07/01/29 Unknown Unknown Active Unkn own Unknown Unknown [id number] Unknown 08/29/22 Unknown Unknown Active Unkn own Unknown Unknown [id number] Unknown 12/30/31 Unknown Unknown Active [place] let[employer]ia Patient Care team information Care Team Personnel Name: Radha Farley Position: FT Ambulatory - Primary Care - [place] Member Role: Primary Care Physician Address: [address] [place] [address]- Telecom: Care Team Related Persons Name: JOSE FRANCISCO TUCKER Name: JOSE FRANCISCO TUCKER Name: JOSE FRANCISCO TUCKER Name: ANKUSH TOWNSEND Insurance Providers Guarantor name: JASMIN CALVILLO Guarantor name: JOSE FRANCISCOJOSÉ LUIS TUCKER Health Plan Information #: 1 Payer: NA Payer Identifier: [id number] Member Number: [id number] Group Number: [id number] Subscriber Identifier: [id number] Relationship to Subscriber: Self Coverage Type: PRIVATE HEALTH INSURANCE Coverage Verification Date: 11/29/24 Telecom: NA Address:
--- OUTSIDE RECORDS SUMMARY | 2025-01-11 23:59 | XMS_ITS | Continuity of Care Document ---
Author Organization [facility] Address [address] [place] [address] Care Team Providers Care Conservation Officer Name Role Phone Radha Leo Primary Care Physician Encounter FT_AMBFIN [id number] Date(s): 01/11/25 - 01/11/25 [facility] [address] [address]- Encounter Diagnosis Kidney stones(Discharge Diagnosis) - 01/11/25 Discharge Disposition: Home (Routine DC) Attending Physician: Romi Sarmiento MD Encounter Type: Clinic Allergies, Adverse Reactions, Alerts No Known Medication Allergies Assessment and Plan Future Appointments Appointment Date:01/17/2026 08:15:00 AM Scheduled Provider:Romi Sarmiento MD Location:[facility] Appointment Type:URO Office Visit Future Scheduled Tests Radiology* XR Abdomen 1 View 12/30/25 * US Renal 12/30/25 Immunizations Given and Recorded Vaccine Date Status [...] vaccine, inactivated 04/24/13 Rizwan rded SARS-CoV-2 (COVID-19) [id number] 04/28/22 Recorded SARS-CoV-2 (COVID-19) mRNA BNT-162b2 vax [...] Daily, # 30 tab(s), Refills(s) 11, [facility]acy: [facility] #[id number], 165, cm, 03/09/24 9:36:00 EDT, Height/Length Dosing, 66, kg, 03/09/24 9:36:00 EDT, Weight Dosing Start Date: 03/09/24 Status: Ordered Quantity: 30.0 Unit: tab(s) Repeat number: 12 omeprazole 40 mg Cap-DR See Instructions, TAKE 1 CAPSULE BY MOUTH DAILY, # 90 cap(s), Refills(s) 0, Pharmacy: [facility] #[id number], 165, cm, 11/28/24 10:01:00 EDT, Height/Length Dosing, 63, kg, 11/28/24 10:01:00 EDT,Weight Dosing Start Date: 11/30/24 Status: Ordered Quantity: 90.0 Unit: cap(s) Repeat number: 1 oxybutynin 5 mg Tab 5 mg = 1 tab(s), Oral, BID, PRN for urinary discomfort, Take for kidney stone event., # 60 tab(s), Refills(s) 1, Pharmacy: [facility] #[id number], 165, cm, 07/06/24 9:01:00 EST, Height/Length Dosing, 67, kg, 07/06/24 9:01:00 EST, Weight Dosing Start Date: 07/06/24 Status: Ordered Quantity: 60.0 Unit: tab(s) Repeat number: 2 Indications: Calculus of kidney; tamsulosin 0.4 mg Cap 0.4 mg = 1 cap(s), Oral, Daily, Take for kidney stone event., # 30 cap(s), Refills(s) 1, Pharmacy: [facility] #[id number], 165, cm, 07/06/24 9:01:00 EST, Height/Length Dosing, [...] Hernia of anterior abdominal wall Confirmed Active Hypertension Confirmed Active Kidney stones Confirmed Active Non-smoker Confirmed Active Osteoarthritis of knee Confirmed Active Osteoarthritis of knee Confirmed 02/19/21 Active Pelvic pain Confirmed Active 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/19/21 Active Breast cancer screening by mammogram Confirmed [...] Code MRI Safety Implantable Status Assigning Authority [id number] [id number] Unknown [id number] Unknown 08/30/23 Unknown Unknown Active GS1 Unknown Unknown [id number] Unknown 01/29/27 Unknown Unknown Active Unk nown Unknown Unknown [id number] Unknown 07/01/29 Unknown Unknown Active Unkn own Unknown Unknown [id number] Unknown 08/29/22 Unknown Unknown Active Unkn own Unknown Unknown [id number] Unknown 12/30/31 Unknown Unknown Active Unk nown Hospital Discharge Instructions Patient Education 01/11/2025 08:20:55 Dietary Guidelines to Help Prevent Kidney Stones [...] for following this plan? Reading food labels ??? Choose foods with no salt added or low-salt labels. Limit your salt (sodium) intake to lessthan 1,500 mg a day. ??? Choose foods with calcium for each meal and snack. Try to eat about 300 mg of calcium at each meal. Foods that contain 200???500 mg of calcium a serving include: ??? 8 oz (237 mL) of milk, bodxwsk-nplwgtikgaer-tcmjf milk, and calcium- fortifiedfruit juice. Calcium-fortified means that calcium has been added to these drinks. ??? 8 oz (237 mL) of kefir, yogurt, and soy yogurt. ??? 4 oz (114 g) of tofu. ??? 1 oz (28 g) of cheese. ??? 1 cup (150 g) of dried figs. ??? 1 cup (91 g) of cooked broccoli. ??? One 3 oz (85 g) can of sardines or mackerel. Most people need 1,000???1,500 mg of calcium a day. Talk to your dietitian about how much calcium is recommended for you. Shopping ??? Buy plenty of fresh fruits and vegetables. Most people do not need to avoid fruits and vegetables, even if these foods contain nutrients that may contribute to kidney stones. ??? When shopping for convenience foods, choose: ??? Whole pieces of fruit. ??? Pre-made salads with dressing on the side. ??? Low-fat fruit and yogurt smoothies. ??? Avoid buying frozen meals or prepared deli foods. These can be high in sodium. ??? Look for foods with live cultures, such as yogurt and kefir. ??? Choose high-fiber grains, such as whole-wheat breads, oat bran, and wheat cereals. Cooking ??? Do not add salt to food when cooking. Place a salt shaker on the table and allow each person toadd their own salt to taste. ??? Use vegetable protein, such as beans, textured vegetable protein (TVP), or tofu, instead of meat in pasta, casseroles, and soups. Meal planning ??? Eat less salt, if told by your dietitian. To do this: ??? Avoid eating processed or pre-made food. ??? Avoid eating fast food. ??? Eat less animal protein, including cheese, meat, poultry, or fish, if told by your dietitian. To do this: ??? Limit the number of times you have meat, poultry, fish, or cheese each week. Eat a diet free ofmeat at least 2 days a week. ??? Eat only one serving each day of meat, poultry, fish, or seafood. ??? When you prepare animal proteins, cut pieces into small portion sizes. For most meat and fish, one serving is about the size of the palm of your hand. ??? Eat at least five servings of fresh fruits and vegetables each day. To do this: ??? Keep fruits and vegetables on hand for snacks. ??? Eat one piece of fruit or a handful of berries with breakfast. ??? Have a salad and fruit at lunch. ??? Have two kinds of vegetables at dinner. ??? You may be told to limit foods that are high in a substance called oxalate. These include: ??? Spinach (cooked), rhubarb, beets, sweet potatoes, and Gabonese chard. ??? Peanuts. ??? Potato chips, greenlandic fries, and baked potatoes with skin on. ??? Nuts and nut products. ??? Chocolate. ??? If you regularly take a diuretic medicine, make sure to eat at least 1 or 2 servings of fruits or vegetables that are high in potassium each day. These include: ??? Avocado. ??? Banana. ??? Mcadoo, prune, carrot, or tomato juice. ??? Baked potato. ??? Cabbage. ??? Beans and split peas. Lifestyle ??? Drink enough fluid to keep your urine pale yellow. This is the most important thing you can do.Spread your fluid intake throughout the day. ??? If you drink alcohol: ??? Limit how much you have to: ??? 0???1 drink a day for women who are not . ??? 0???2 drinks a day for men. ??? Know how much alcohol is in your drink. In the [place] one drink equals one 12 oz bottle of beer (355 mL), one 5 oz glass of wine (148 mL), or one 1?? oz glass of hard liquor (44 mL). ??? Lose weight if told by your health care provider. Work with your dietitian to find an eating plan and weight loss strategies that work best for you. General information ??? Talk to your health care provider and dietitian about taking daily supplements. Depending on your health and the cause of your kidney stones, you may be told: ??? Do not take high-dose supplements of vitamin C (1,000 mg a day or more). ??? To take a calcium supplement. ??? To take a daily probiotic supplement. ??? To take other supplements such as magnesium, fish oil, or vitamin B6. ??? Take xulb-bnt-ovazpeo and prescription medicines only as told by [...] Casseroles. Pizza. Lasagna. Frozen meals. Potato chips. Belarusian fries. The items listed above may not be a complete list of foods and beverages you should limit. Contact a dietitian for more information. What foods should I avoid? Talk to your dietitian about specific foods you should avoid based on the type of kidney stones youhave and your overall health. Fruits Grapefruit. The item listed above may not be a complete list of foods and beverages you should avoid. Contact adietitian for more information. Summary ??? Kidney stones are deposits of minerals and salts that form inside your kidneys. ??? You can lower your risk of kidney stones by making changes to your diet. ??? The most important thing you can do is drink enough fluid. Drink enough fluid to keep your urine pale yellow. ??? Talk to your dietitian about how much calcium you should have each day, and eat less salt and animal protein as told by your dietitian. This information is not intended to replace advice given to you by your health care provider. Make sure you discuss any questions you have with your health care provider. Document Revised: 08/28/2022 Document Reviewed: 08/28/2022 [email or web address] Patient Education ?? 2023 [employer] Follow Up Care 07/06/2024 09:27:26 With:Torsten DIAMOND, KEY JolleyL, URO Address: When: Unknown Patient Care team information Care Team Personnel Name: Radha Farley Position: FT Ambulatory - Primary Care - [place] Member Role: Primary Care Physician Address: [address] [place] [address]- Telecom: Care Team Related Persons Name: GARRETT, JOSE FRANCISCO Name: GARRETT, JOSE FRANCISCO Name: DAY, JOSE FRANCISCO Name: ANKUSH TOWNSEND Insurance Providers Guarantor name: JASMIN CALVILLO Guarantor name: JOSE FRANCISCO TUCKER Health Plan Information #: 1 Payer: NA Payer Identifier: [id number] Member Number: [id number] Group Number: [id number] Subscriber Identifier: [id number] Relationship to Subscriber: Self Coverage Type: PRIVATE HEALTH INSURANCE Coverage Verification Date: 01/09/25 Telecom: ROSANGELA Address: NA
--- OUTSIDE RECORDS SUMMARY | 2025-01-13 10:18 | XMS_ITS | Encounter Summary ---
Author Organization [facility] Address [address] [place] [address] Care Team Providers Care Engineering Supervisor Name Role Phone Omi Cowan MD Primary Care Provider Omi Cowan MD Primary Care Provider [phone] Encounter Details Date Type Department Care Team (Late Contact Info) Description 03/06/2023 Abstract [facility] [address] [facility] [phone] Bertha Whitley RN [address] [place], [place] Social History Tobacco Use Types Packs/Day Years Used Date Smoking Tobacco: Never Assessed Comments Unknown Sex and Gender Information Value Date Recorded Sex Assigned at Female 03/12/2023 3:35 PM EDT Legal Sex Female 9:49 PM EDT Gender Identity Female 03/12/2023 3:35 PM EDT Sexual Orientation Straight 03/12/2023 3: 35 PM EDT documented as of this encounter Plan of Treatment Upcoming Encounters Date Type Department Care Team (Late st Contact Info) Description 03/21/2025 9:30 AM EDT Office [facility] [address] [place] [address] Miles Guevara DO [address] [place] [id number] documented as of this encounter Visit Diagnoses Not on filedocumented in this encounter Care Teams Engineering Supervisor Relationship Specialty Start Date End Date Omi Cowan MD PCP - General Family Medicine 11/19/23 03/16/24 Omi Cowan MD [address] [place] [address] PCP - General Family Medicine 03/17/24 documented as of this encounter
--- OUTSIDE RECORDS SUMMARY | 2025-01-13 10:18 | XMS_ITS | Clinical Summary ---
Author Organization [facility] Address [address] [place] [address] Care Team Providers Care Harvest Field Ticketer Name Role Phone Omi Cowan MD Primary Care Provider [phone] Allergies No known active allergies Medications Pediatric Multivitamins-F l (MultiVitamin + Fluoride) 0.25 MG chewable tablet Multivitamin A ctive Calcium Citrate-Vitamin D (Calcium Citrate Chewy Bite) 500-12.5 MG-MCG chewable tablet Calcium Citrate Acti ve Omeprazole 20 MG Tablet Delayed Release Dispersible 4 Active cephalexin (Keflex) 500 MG capsuleIndicati ons:History of total right knee replacement Take 4 pills 30-60 mins before dental appointment with food 4 capsule 3 5 Active Active Problems No known active problems Encounters Date Type Department Care Team Description 11/28/2024 Telephone [facility] [address] [place] [address] Bertha Whitley RN 11/02/2024 Telephone [facility] [address] [place] [address] Miles Guevara DO Dentist appt from Last 3 Months Family History Medical History Relation Name Comments Broken bones Father Mariela John Dislocations Father Mariela John Osteoarthritis Father Mariela John Osteoporosis Father Mariela John Diabetes Father's Sister Jessy Stieber Cancer Maternal Grandfather Russel Bill Cancer Maternal Grandmother Bethany Bill Broken bones Mother Nargisbijan Goodrich Cancer Paternal Grandmother Grey Lopez Relation Name Status Comments Father Mariela Lopez Alive Father's Sister Jessy Avendano Maternal Grandfather Russel Shah Maternal Grandmother Bethany Shah Mother Nargis Day Alive Paternal Grandmother Grey Lopez Social History Tobacco Use Types Packs/Day Years Used Date Smoking Tobacco: Never Smokeless Tobacco: Never Tobacco Cessation:Counseling Given: Not Answered Alcohol Use Standard Drinks/Week Comments Never 0 (1 standard drink = 0.6 oz pur e alcohol) Comments Unknown Sex and Gender Information Value Date Recorded Sex Assigned at Female 03/12/2023 3:35 PM EDT Legal Sex Female 9:49 PM EDT Gender Identity Female 03/12/2023 3:35 PM EDT Sexual Orientation Straight 03/12/2023 3: 35 PM EDT Last Filed Vital Signs Vital Sign Reading Time Taken Comments Blood Pressure 140/82 11/19/2023 12:56 PM EDT Pulse - - Temperature 36.3 C (97.4 F) 03/17/2024 8:39 AM EDT Respiratory Rate - - Oxygen Saturation - - Inhaled Oxygen Concentration - - Weight 64.4 kg (142 lb) 03/17/2024 8:39 AM EDT Height 165.1 cm (5' 5 ) 03/17/2024 8:39 AM EDT Body Mass Index 23.63 03/17/2024 8:39 AM EDT Plan of Treatment Upcoming Encounters Date Type Department Care Team (Late st Contact Info) Description 03/21/2025 9:30 AM EDT Office Visit [facility] [address] [facility] [address] [place] [phone] Miles Guevara DO [address] [place] [address] Health Maintenance Due Date Last Done Comments CT Colonography 1974 Colonoscopy 1975 Colorectal Cancer Screening 1974 FIT-DNA 1974 FIT 1974 FOBT 1975 Sigmoidoscopy 1974 Pap Smear 12/03/1995 Cervical Cancer Screening 2004 HPV/Cotest 2004 Mammogram 2014 Influenza Vaccine (#1) 2025 4, 03/17/2023, 03/06/2023, Additional history exists Insurance [employer] Care Teams Harvest Field Ticketer Relationship Specialty Start Date End Date Omi Cowan MD [address] [place] [address] PCP - General Family Medicine 03/17/24
--- OUTSIDE RECORDS SUMMARY | 2025-01-13 10:19 | XMS_ITS | Clinical Summary ---
Author Organization [facility] Address [address] [place] [address] Care Team Providers Care Fueler Name Role Phone Unavailable Primary Care Provider Unavailabl e Social History Tobacco Use Types Packs/Day Years Used Date Smoking Tobacco: Never Assessed [place] Safety & Environment Answer Date Rec orded Fear of Current or Ex-Partner Not on file Emotionally Abused Not on file 07/23/2023 Physically Abused Not on file 07/23/2023 Sexually Abused Not on file 07/23/2023 Physically or Sexually Abused Not on file Comments Unknown Sex and Gender Information Value Date Recorded Sex Assigned at Not on file Legal Sex Female 9:37 PM EDT Gender Identity Not on file Sexual Orientation Not on file Plan of Treatment Not on file
--- NOTE | 2025-01-13 10:21 | MM_ITS ---
Patient Name: JASMIN CALVILLO MR#: [id number] : 1975 Exam Date: 01/13/2025 Ordering Doctor: FRANTZ PANDA . RADIOLOGY REPORT PROCEDURE: MM TOMOSYNTHESIS SCREENING BI COMPARISON: MM TOMOSYNTHESIS SCREENING BI, 12/25/2023. MM TOMOSYNTHESIS SCREENING BI, 12/11/2022. MG MAMM SCREEN 3D SRINATH CAD, 12/03/2021. MG MAMM SRINATH SCRN W CAD DIG, 06/12/2015. INDICATIONS: Screening Calculator Name NCI Breast Cancer Risk Assessment Tool 5 Year Breast Cancer Risk 0.90% Lifetime Breast Cancer Risk 8.00% Personal Breast Cancer No Personal Ovarian Cancer No Treatments None Family Cancers Father with prostate cancer at age 51; Grandfather-maternal with colon cancer at age 68. LOCATION: [facility] BREAST COMPOSITION: There are scattered areas of fibroglandular density. FINDINGS: RIGHT BREAST: No significant suspicious finding. LEFT BREAST: No significant suspicious finding. DIAGNOSTIC CATEGORY 1--NEGATIVE. RECOMMENDATIONS: ROUTINE MAMMOGRAM AND CLINICAL EVALUATION IN 12 MONTHS. PLEASE NOTE: A NORMAL MAMMOGRAM DOES NOT EXCLUDE THE POSSIBILITY OF BREAST CANCER. A CLINICALLY SUSPICIOUS PALPABLE LUMP SHOULD BE BIOPSIED. Dictated by: Riky Larson MD on 01/13/2025 at 13:24 Approved by: Riky Larson MD on 01/13/2025 at 13:42
--- OUTSIDE RECORDS SUMMARY | 2025-01-13 10:23 | XMS_ITS | CCD ---
Author Organization [facility] Care Team Providers Care Valve Pipe Irrigator Name Role Phone LUDY LAINEZ Primary Care Physician ERICK KRAFT Consulting Unavailable LAINEZ ., DR LUDY Morris Primary Care Unavailable LUE ., ROMI M Attending Unavailable LUE ., ROMI M Admitting Unavailable LUE ., ROMI M Consulting Unavailable LUE ., ROMI M Consulting Unavailable LAINEZ ., DR LUDY Morris Primary Care Unavailable LUE ., ROMI M Attending Unavailable LUE ., ROMI M Admitting Unavailable MAIRA SCRUGGS Consulting Unavailable PETER II, SARAY Consulting Unavailable MISC, DR HDEZ Consulting Unavailable LAINEZ ., DR LUDY Morris Primary Care Unavailable MISC, DR HDEZ Attending Unavailable MISC, DR HDEZ Admitting Unavailable ZIEBER, DR ETTA Hopkins Consulting Unavailable LAINEZ ., DR LUDY Morris Primary Care Unavailable LUE ., ROMI oJrge Attending Unavailable LUE ., ROMI M Admitting Unavailable LUE ., ROMI M Consulting Unavailable ZIEBER, DR ETTA Hopkins Consulting Unavailable LAINEZ ., DR LUDY Morris Primary Care Unavailable LUE ., ROMI M Attending Unavailable LUE ., ROMI M Admitting Unavailable LUE ., ROMI M Consulting Unavailable ZIEBER, DR ETTA Hopkins Consulting Unavailable LAINEZ ., DR LUDY Morris Primary Care Unavailable LUE ., ROMI M Attending Unavailable LUE ., ROMI M Admitting Unavailable LUE ., ROMI M Consulting Unavailable LUE ., ROMI M Consulting Unavailable LAINEZ ., DR LUDY Morris Primary Care Unavailable LUE ., ROMI M Attending Unavailable LUE ., ROMI M Admitting Unavailable MAISHA ESTRADA Consulting Unavailable LUE ., ROMI M Consulting Unavailable LAINEZ ., DR LUDY Morris Primary Care Unavailable LUE ., ROMI M Attending Unavailable LUE ., ORMI M Admitting Unavailable LAINEZ ., DR LUDY Morris Consulting Unavailable LAINEZ ., DR LUDY Morris Primary Care Unavailable LAINEZ ., DR LUDY Morris Attending Unavailable LAINEZ ., DR LUDY Morris Admitting Unavailable YESSI, DR ETTA Hopkins Consulting Unavailable MARY SOTO Consulting Unavailable LAINEZ ., DR LUDY Morris Primary Care Unavailable BRITTANY, MARY Attending Unavailable MARY SOTO Admitting Unavailable PAY ., DR PUENTE Consulting Unavailable PAY ., DR PUENTE Attending Unavailable PAY ., DR PUENTE Admitting Unavailable LAINEZ ., DR LUDY Morris Primary Care Unavailable MAXIMILIANO TAYLOR Consulting Unavailable MEGHA RESENDIZ Consulting Unavailable DONNAIVETT Consulting Unavailable Felipa, Radha L Primary Care Physician Omi Cowan MD Primary Care Provider [phone] MARSHALL LYON Attending Unavailable STERLING, SUHAS Barber Attending Unavailable STERLINGSUHAS Referring Unavailable Felipa Radha Maribeth Primary Care Unavailable Lue, Romi M Admitting Unavailable Lue, Romi M Attending Unavailable Lue, Romi M. Attending Unavailable Felipa, Radha L Attending Unavailable Felipa, Radha L Attending Unavailable Felipa, Radha L Attending Unavailable Felipa, Radha L Admitting Unavailable Felipa, Radha L Attending Unavailable Lue, Romi M. Attending Unavailable Lue, Romi M. Referring Unavailable Felipa, RADIOLOGICAL EQUIPMENT SPECIALIST Radha L Attending Unavailable Lue, Romi M. Attending Unavailable Lue, Romi M. Attending Unavailable Lue, Romi M. Attending Unavailable Felipa, RADIOLOGICAL EQUIPMENT SPECIALIST Radha L Admitting Unavailable Felipa, RADIOLOGICAL EQUIPMENT SPECIALIST Radha L Attending Unavailable Lue, Romi M. Attending Unavailable Lue, Romi M. Attending Unavailable Lue, Romi M. Referring Unavailable Lue, Romi M. Admitting Unavailable Unavailable Unavailable Unavailable Allergies Allergy Classification Reported Allergen(s) Allergy Type Date of Onset Reaction(s) Facility (3 sources) No Known Medication Allergies; Translations: [No Known Medication Allergies] Propensity to adverse reactions (disorder) [facility] Repository Medications Current Medications Medication Drug Class(es) Dates Sig (Normalized) Sig (Original) acetaminophen 325 mg / oxyCODONE hydrochloride 5 mg oral tablet (1 source) Opioid Agonist Start: 03-22-2022 Percocet 325 mg-5 mg Tab See Instructions, 50 tab(s), Refill(s) 0, 1- 2 tab(s) Oral q4hr PRN post operative knee replacement pain. Duration 7 days, [facility] #[id number], 165, cm, 02/26/22 12:16:00 EDT, Height/Length Dosing, 85.1, kg, 02/26/22 12:16:00 EDT, Weight Dosing Start Date: 03/22/22 Status: Ordered ascorbic acid 60 mg / cholecalciferol 0.01 mg / folic acid 0.3 mg / niacin 13.5 mg / riboflavin 1.2 mg / sodium fluoride 0.55 mg / thiamine 1.05 mg / vitamin a 0.75 mg / vitamin b12 0.0045 mg / vitamin b6 1.05 mg / vitamin e 6.75 mg chewable tablet (3 sources) Nicotinic Acid, Vitamin A, Vitamin B12, Vitamin D, Vitamin C Pediatric Multivitamins-Fl (MultiVitamin + Fluoride) 0.25 MG chewable tablet Multivitamin Active aspirin 325 mg oral tablet (1 source) Platelet Aggregation Inhibitor, Nonsteroidal Anti-inflammatory Drug Start: 03-22-2022 End: 04-21-2022 take 1 tablet by mouth once daily aspirin 325 mg Tab 325 mg = 1 tab(s), Oral, Daily, Start the day after knee surgery for blood clot prevention., X 30 day(s), # 30 tab(s), Refills(s) 0, Pharmacy: [facility] #[id number], 165, cm, 02/26/22 12:16:00 EDT, Height/Length Dosing, 85.1, kg, 02/26/22 12:16:... Start Date: 03/22/22 Stop Date: 04/21/22 Status: Ordered Bariatric Multivitamins with 45 mg Iron oral capsule (13 sources) Start: 02-26-2022 take 1 capsule by mouth once daily Bariatric Multivitamins with 45 mg Iron oral capsule 1 cap(s), Oral, Daily, Prophylaxis Start Date: 02/26/22 Status: Ordered Repeat number: 1 Start: 02-26-2022 take 1 capsule by mo [facility] once daily Bariatric Multivitamins with 45 mg Iron oral capsule 1 cap(s), Oral, Daily, Prophylaxis Start Date: 02/26/22 Status: Ordered Calcium Citrate-Vitamin D (Calcium Citrate Chewy Bite) 500-12.5 MG-MCG chewable tablet (3 sources) Calcium Citrate- Vitamin D (Calcium Citrate Chewy Bite) 500-12.5 MG-MCG chewable tablet Calcium Citrate Active cephalexin 500 mg oral capsule (3 sources) Cephalosporin Antibacterial Start: 03-17-2024 cephalexin (Keflex) 500 MG capsule Indications: History of total right knee replacement Take 4 pills 30-60 mins before dental appointment with food 4 capsule 3 03/17/2024 Active Start: 03-17-2024 cephalexin (Ke flex) 500 MG capsule Indications: History of total right knee replacement Take 4 pills 30-60 mins before dental appointment with food 4 capsule 3 03/17/2024 Active Start: 03-22-2022 End: 03-27-2022 take 1 capsule by mouth four times daily Keflex 500 mg Cap 500 mg = 1 cap(s), Oral, QID, Start the day after knee replacement surgery., X 5 day(s), # 20 cap(s), Refills(s) 0, Pharmacy: [facility] #[id number], 165, cm, 02/26/22 12:16:00 EDT, Height/Length Dosing, 85.1, kg, 02/26/22 12:16:00 EDT, Weight Do... Start Date: 03/22/22 Stop Date: 03/27/22 Status: Ordered docusate sodium 100 mg oral capsule (1 source) Start: 03-22-2022 take 1 capsule by mouth twice daily Colace 100 mg Cap 100 mg = 1 cap(s), Oral, BID, # 20 cap(s), Refills(s) 0, Pharmacy: [facility] #[id number], 165, cm, 02/26/22 12:16:00 EDT, Height/Length Dosing, 85.1, kg, 02/26/22 12:16:00 EDT, Weight Dosing Start Date: 03/22/22 Status: Ordered omeprazole 40 mg delayed release oral capsule (9 sources) Proton Pump Inhibitor Start: 11-30-2024 take 1 capsule by mouth once daily omeprazole 40 mg Cap-DR See Instructions, TAKE 1 CAPSULE BY MOUTH DAILY, # 90 cap(s), Refills(s) 0, Pharmacy: [facility] #[id number], 165, cm, 11/28/24 10:01:00 EDT, Height/Length Dosing, 63, kg, 11/28/24 10:01:00 EDT, Weight Dosing Start Date: 11/30/24 Status: Ordered Quantity: 90.0 Unit: cap(s) Repeat number: 1 Start: 08-31-2024 take 1 capsule by [facility] once daily omeprazole 40 mg Cap-DR See Instructions, TAKE 1 CAPSULE BY MOUTH DAILY, # 90 cap(s), Refills(s) 0, Pharmacy: [facility] #[id number], 165, cm, 07/06/24 9:01:00 EST, Height/Length Dosing, 67, kg, 07/06/24 9:01:00 EST, Weight Dosing Start Date: 08/31/24 Status: Ordered Quantity: 90.0 Unit: cap(s) Repeat number: 1 Start: 10-14-2023 Omeprazole 20 MG Tablet Delayed Release Dispersible 10/14/2023 Active Start: 09-11-2023 take 1 capsule by [facility] once daily omeprazole 40 mg Cap-DR 40 mg = 1 cap(s), Oral, Daily, # 90 cap(s), Refills(s) 3, Pharmacy: [facility] #[id number], 165, cm, 09/11/23 11:19:00 EDT, Height/Length Dosing, 64.8, kg, 09/11/23 11:19:00 EDT, Weight Dosing Start Date: 09/11/23 Status: Ordered oxybutynin chloride 5 mg oral tablet (3 sources) Cholinergic Muscarinic Antagonist Start: 07-06-2024 take 1 tablet by mouth twice daily as needed oxybutynin 5 mg Tab 5 mg = 1 tab(s), Oral, BID, PRN for urinary discomfort, Take for kidney stone event., # 60 tab(s), Refills(s) 1, Pharmacy: [facility] #[id number], 165, cm, 07/06/24 9:01:00 EST, Height/Length Dosing, 67, kg, 07/06/24 9:01:00 EST, Weight Dosing Start Date: 07/06/24 Status: Ordered Quantity: 60.0 Unit: tab(s) Repeat number: 2 Indications: Calculus of kidney; promethazine hydrochloride 25 mg oral tablet (6 sources) Phenothiazine Start: 03-22-2022 take 1 tablet by mouth every four hours as needed for nausea promethazine 25 mg Tab 25 mg = 1 tab(s), Oral, q4hr, PRN for nausea/vomiting, Post knee surgery nausea/vomiting, # 20 tab(s), Refills(s) 0, Pharmacy: [facility] #[id number], 165, cm, 02/26/22 12:16:00 EDT, Height/Length Dosing, 85.1, kg, 02/26/22 12:16:00 EDT, Weight Dosing Start Date: 03/22/22 Status: Ordered tamsulosin hydrochloride 0.4 mg oral capsule (5 sources) alpha-Adrenergic Chaya Start: 07-06-2024 take 1 capsule by mouth once daily tamsulosin 0.4 mg Cap 0.4 mg = 1 cap(s), Oral, Daily, Take for kidney stone event., # 30 cap(s), Refills(s) 1, Pharmacy: [facility] #[id number], 165, cm, 07/06/24 9:01:00 EST, Height/Length Dosing, 67, kg, 07/06/24 9:01:00 EST, Weight Dosing Start Date: 07/06/24 Status: Ordered Quantity: 30.0 Unit: cap(s) Repeat number: 2 Indications: Calculus of kidney; Start: 06-13-2022 take 1 capsule by [facility] once daily Flomax 0.4 mg Cap 0.4 mg = 1 cap(s), Oral, Daily, # 30 cap(s), Refills(s) 1, Pharmacy: [facility] #[id number], 165, cm, 06/13/22 9:38:00 EST, Height/Length Dosing, 73.5, kg, 06/13/22 9:38:00 EST, Weight Dosing Start Date: 06/13/22 Status: Ordered Completed/Discontinued Medications Medication Drug Class(es) Dates Sig (Normalized) Sig (Original) Calcium Citrate (9 sources) Start: 02-26-2022 take 2 tablets by mouth twice daily calcium citrate Tab 500 mg, Oral, BID, 2 tabs twice a day, Prophylaxis Start Date: 02/26/22 Status: Ordered K-Effervescent 25 mEq oral tablet, effervescent (4 sources) Start: 03-09-2024 take 1 tablet by mouth once daily K-Effervescent 25 mEq oral tablet, effervescent 25 mEq = 1 tab(s), Oral, Daily, # 30 tab(s), Refills(s) 11, [id number], 165, cm, 03/09/24 9:36:00 EDT, Height/Length Dosing, 66, kg, 03/09/24 9:36:00 EDT, Weight Dosing Start Date: 03/09/24 Status: Ordered Quantity: 30.0 Unit: tab(s) Repeat number: 12 Start: 03-09-2024 take 1 tablet by baljit th once daily K-Effervescent 25 mEq oral tablet, effervescent 25 mEq = 1 tab(s), Oral, Daily, # 30 tab(s), Refills(s) 11, Pharmacy: [facility] #[id number], 165, cm, 03/09/24 9:36:00 EDT, Height/Length Dosing, 66, kg, 03/09/24 9:36:00 EDT, Weight Dosing Start Date: 03/09/24 Status: Ordered Problems Active Problems Problem Classification Problem Date Documented Da te Episodic/Chronic Abdominal hernia (2 sources) Hernia of anterior abdominal wall 11-28-2024 Episodic Abdominal pain (11 sources) Unspecified abdominal pain; Translations: [Pain in pelvis] Onset: 2 Episodic Acquired foot deformities (20 sources) Foot-drop Onset: 1 02-26-2022 Episodic Calculus of urinary tract (20 sources) Kidney stone; Translations: [Calculus of kidney] Onset: 3 Episodic Esophageal disorders (7 sources) Gastroesophageal reflux disease 09-11-2023 Chronic Essential hypertension (13 sources) Hypertensive disorder; Translations: [Essential (primary) hypertension] Onset: 3 06-13-2022 Chronic Genitourinary symptoms and ill-defined conditions (6 sources) Microscopic hematuria; Translations: [Asymptomatic microscopic hematuria] Onset: 3 Episodic Joint disorders and dislocations; trauma-related (7 sources) 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 Menstrual disorders (7 sources) Disorder of menstruation 04-12-2024 Chronic Osteoarthritis (20 sources) Osteoarthritis of knee; Translations: [Unilateral primary osteoarthritis, right knee] Onset: 1 Chronic Other aftercare (1 source) 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; 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] Onset: 3 Episodic Other connective tissue disease (1 source) Presence of right artificial knee joint; Translations: [PRESENCE RT ARTIFICIAL KNEE JOINT] Onset: 3 Chronic Other connective tissue disease (2 sources) History of right total knee replacement; Translations: [Presence of right artificial knee joint] 03-15-2024 Chronic Other diseases of kidney and ureters (4 sources) Hydronephrosis with renal and ureteral calculous obstruction; Translations: [HYDRONPHROS RENL AND URETRL CALCUL OBST] Onset: 3 Episodic Other diseases of kidney and ureters (1 source) Unspecified hydronephrosis; Translations: [UNSPECIFIED HYDRONEPHROSIS] Onset: 3 Episodic Other diseases of kidney and ureters (5 sources) Hydronephrosis; Translations: [Unspecified hydronephrosis] Onset: 4 Episodic Other gastrointestinal disorders (5 sources) Intestinal malabsorption, unspecified; Translations: [INTESTINAL MALABSORPTION UNS] Onset: 2 Chronic Other gastrointestinal disorders (1 source) Bariatric surgery status; Translations: [BARIATRIC SURGERY STATUS] Onset: 3 Episodic Residual codes; unclassified (1 source) Other specified postprocedural states; Translations: [OT SPECIFIED POSTPROCEDURAL STATES] Onset: 3 Episodic Unclassified (12 sources) Asymptomatic microscopic hematuria 06-13-2022 Unclassified (9 sources) Body mass index 20-24 - normal 10-24-2022 Unclassified (9 sources) Non-smoker 10-24-2022 Unclassified (7 sources) Acquired varus deformity of right knee Onset: 1 09-11-2023 Unclassified (7 sources) Cancer cervix screening status 10-27-2023 Unclassified (13 sources) Patient encounter status 10-27-2023 Past or [...] PROSTATE] Onset: 12-06-2021 Episodic Sprains and strains (7 sources) Rupture of anterior cruciate ligament Onset: 02-19-2021 09-11-2023 Episodic Results Test Name Value Interpretation Reference Range Facil ity Reminderson 01-11-2025 Reminders Reminders From: Delmy Lai To: NURA - Angy Sarmiento; Sent: 01/11/2025 08:37:18 EDT Show up: 12/11/2025 08:37:00 EDT Subject: 1 yr OSCAR/KUB [facility] Due Date/Time: 01/11/2026 08:37:00 EDT Reminder Message Please Remember to: Pt to get OSCAR and KUB for 1 yr appt. Please ensure OSCAR has been scheduled. Future orders for both in 01/11/25 encounter. I did change the dates to be for 12/30/25. Thanks! Normal [facility] Urology Office/Clinic Noteon 01-11-2025 Urology Office/Clinic Note Urology Office/Clinic Note Chief Complaint fu HPI Staff Pt is a 49 year old female here for 6 month follow up with KUB done at [facility] 01/04/25 previous DX: Kidney stones, hydronephrosis Patient denies any dysuria or gross hematuria. Denies any flank or abdomen pain. no symptoms History of Present Illness Tests reviewed: UA, KUB, OSCAR I have reviewed the previous [...] HPI. Physical Exam Vitals & Measurements HR: 82(Peripheral) BP: 130/75 HT: 65 in HT: 165 cm WT: 139.332 lb WT: 63.2 kg BMI: 23.21 General Appearance: alert, no distress, well nourished, well developed adult. Assessment/Plan 49 yo female with history of gastric bypass and recurrent kidney stones presents for follow up. BBS 4 (3). 1. Kidney stones (N20.0: Calculus of kidney) Hx of gastric bypass surgery - risk factor for stones. Family hx - mother with stones. [1] CT AP w IV/PO con 05/27/22 [facility] - 5 mm R UPJ, 1 mm R UVJ stone, mild hydronephrosis and delayed nephrogram. 3 mm L UVJ stone, 2 to 3 mm nonobstructing renal calculi. CT AP w/o contrast 07/10/22 - R hydroureteronephrosis 6 x 5 x 4 mm distal ureteral stone. RLP 2 mm stone, LLP 3.5 mm stone. S/p Cysto, Right URS w/ laser litho, stone extraction, string stent placed. Stent removed at home without complications. Stone analysis 20% CaOx monohydrate, 80% CaOx dihydrate. OSCAR 08/30/22 - BL stones - tiny RLP stone, 3.5 mm left stone KUB 05/18/23 [facility] - 5mm RLP stone. 1cm LLP. Personal review: stones are overestimated in size, likely multiple small stones. OSCAR 05/18/23 [facility] - 1.4cm stone in L renal pelvis (likely lower pole) and 7mm RLP LithoLink 11/02/22 - 1340 mL vol, mildly Ca 222, low citrate 384, high oxalate 59. Metabolic serum workup 09/04/22 all wnl. Litholink 07/05/23 - 2160 mL vol, U24 Ca 256 H, U24 Na 158 H, U24 Phos [address] AP w con 09/02/23 [facility] - 14 mm L renal stone. Several small Bl stones. OSCAR 11/30/23 [facility] - BL stones: R largest 6 x 5 x 3 mm. L largest 18 x 10 x 6 mm. No hydro. KUB 11/30/23 [facility] - Several small calcifications BL, largest on L 18 mm collection of stones. S/p Cysto, L RPG, URS laser litho/stone extraction, stent on string placement 01/13/24 - >2cm stone burden in lower pole. Stone analysis 01/13/24 - 70% CaOx [place], 30% Di. KUB 03/04/24 [facility] - 5 mm stone RIP. No L renal stones. OSCAR 03/04/24 [facility] - small L stones, largest 2mm. Renal pelvis is upper limits of normal in width but no appreciable dilation of the calyces. Mild dilatation of renal pelvis and calyces. Several nonobstructing stones in R kidney, largest 5mm. Personal review: No L hydro, mild R pelviectasis. Switched from calcium citrate to Effer-K 25 mEq qd. Labs 05/23/24 - wnl. Reports she did not have litholink done because it wasn't mailed to her (order in chart that was faxed). Pt declines repeating litholink. Renal US 06/25/24 [facility] - 6 mm LUP stone. OSCAR 01/04/25 [facility] - Neg. Mildly limited study d/t bowel content. Personal review: no stones seen. KUB 01/04/25 [facility] - Neg. Moderately limited study d/t bowel content. Personal review: no stones seen. Taking Effer-K 25 mEq qd. Pt feels this med has been helping and was cleared by gastric bypass provider to take as long as she has high dietary Ca intake. No stone issues since prior OV. Reviewed imaging with pt. Explained the limits of OSCAR and KUB imaging. OSCAR can overestimate stone size. Fluid intake is going well per pt. Follow up 1 yr with OSCAR, KUB or sooner if needed. Pt understands and agrees with plan. -Flomax 0.4mg qd and Oxybutynin 5mg bid on hand for stone event only -High fluid intake, dietary Ca and cont Effer-K -Order CT if pt becomes symptomatic of stone Follow-up With When Contact Information Romi Sarmiento MD, URL, URO Additional Instructions: 1 yr with NEAL MOORE ([facility]) Patient Education Dietary Guidelines to Help Prevent Kidney Stones I, Delmy Lai, personally scribed for Dr. Sarmiento on 01/11/2025 08:35:09. . Documentation recorded by the scribe, Delmy Lai, accurately reflects the services(s) I performed and decisions made by me. Authenticated by Dr. Sarmiento on 01/11/2025 08:44:34. Problem List/Past Medical History Ongoing Abnormal menstruation Acquired varus deformity of right kne (more content not included)... Normal [facility] Comment on above: Result Comment: Elec tronically Signed By: Romi Sarmiento MD\.br\Date and Time Signed: 01/11/25 08:44 EDT\.br\Electronically Co-Signed By: Delmy Lai\.br\Date and Time Co-Signed: 01/11/25 08:35 EDT US Renalon 01-06-2025 US Renal Exam Date/Time: 01/04/2025 09:14 EDT Reason for Exam: Kidney Stones;Other (please specify) Report IMPRESSION: NEGATIVE MILDLY LIMITED RENAL ULTRASOUND. EXAM: US Renal DATE: 01/04/2025 8:57 AM CLINICAL HISTORY: Kidney Stones. COMPARISON: None available. TECHNIQUE: Transabdominal ultrasound of the kidneys was performed. FINDINGS: The study is mildly limited by the patient's body habitus. Both kidneys are normal in size, position and morphology, with renal cortex echogenicity within normal limits. There is no hydronephrosis, visualized nephrolithiasis, abnormal perinephric collections, solid or cystic renal masses identified. Right Kidney Length: 10.4 cm Cortex: 1.4 cm Left Kidney Length: 10.7 cm Cortex: 1.9 cm Ordering Provider: Romi Sarmiento FINAL REPORT Dictated: 01/06/2025 12:10 pm Alex Mike MD Signed (Electronic Signature): 01/06/2025 12:10 pm Signed by: Alex Mike MD Transcribed by: RANJANA Technologist: HW Normal [facility] XR Abdomen 1 Viewon 01-07-20 XR Abdomen 1 View Exam Date/Time: 01/04/2025 09:22 EDT Reason for Exam: N20.0;Kidney stone Report IMPRESSION: NO SIGNIFICANT URINARY TRACT CALCULI IDENTIFIED, BY PLAIN RADIOGRAPHY. EXAM: XR Abdomen 1 View DATE: 01/04/2025 9:13 AM CLINICAL HISTORY: Kidney stone, N20.0. Technologist Comments: Routine for hx kidney stones. No current complaints. Hx tubal ligation, gastric bypass, kidney stone sx. COMPARISON: None available. TECHNIQUE: Two supine radiographs of the abdomen and pelvis were obtained. FINDINGS: The study is mild to moderately limited by overlying stool/bowel gas. There are no significant calculi identified overlying the kidneys, expected courses of either ureter or bladder. Small calcifications in the pelvis are most likely. The visualized lung bases are clear. Postoperative changes from previous gastric bypass and tubal ligation clips noted. Ordering Provider: Romi Sarmiento FINAL REPORT Dictated: 01/06/2025 12:11 pm Alex Mike MD Signed (Electronic Signature): 01/06/2025 12:11 pm Signed by: Alex Mike MD Transcribed by: RANJANA Technologist: LANETTE Normal [facility] PAP [id number] 2024 HPV Aptima Negative Invalid Interpretation Code Negative [facility] Comment on above: Result Comment: This nucleic acid amplification test detects fourteen high-risk HPV types (16,18,31,33,35,39,45,51,52,56,58,59,66,68) without differentiation. Performed at: [facility] [id number] MD Michel Alexander Performed at: [facility] [address] [place], [place] [id number] MD Michel Alexander Performed By: #### 1 [id number] #### [facility] [address] [place] [address] PAP Note Invalid Interpretation Code [facility] Comment on above: Result Comment: TEST S RESULT FLAG UNITS REF RANGE LAB Clinician Provided Cytology Information Source.............[employer] No. of containers..01 ThinPrep Vial DIAGNOSIS: 01 NEGATIVE FOR INTRAEPITHELIAL LESION OR MALIGNANCY. Specimen adequacy: 01 Satisfactory for evaluation. Endocervical and/or squamous metaplastic cells (endocervical component) are present. Performed by: 01 Bienvenido London, Simulation Engineer (ASCP) . 01 Note: Note 01 The [...] High,A-Abnormal,AA-Critical Abnormal Performed at: 01 [facility] [address] [place] [address] Catherine Pearson MD, Performed By: #### 1 [id number] #### [facility] [address] [place] [id number] Ambulatory Visit Summaryon 0 11-28-2024 Ambulatory Visit Summary Ambulatory Visit Summary ELIDA CALVILLO :1975 Visit Date:11/28/2024 Ambulatory Visit Instructions Your Diagnosis Well woman exam Cervical cancer screening Breast cancer screening by mammogram BMI 23.0-23.9, adult Non-smoker Tests Performed MA Mamm Screen w/CAD if perf and 3D Peng -- Results Pending -- Please visit your patient portal for your results or contact your primary care physician. Your Care Team Attending Physician - Radha Farley Primary Care Physician - Radha Farley This Is Your Medications List multivitamin with minerals (Bariatric Multivitamins with 45 mg Iron oral capsule) omeprazole (omeprazole 40 mg Cap-DR) oxybutynin (oxybutynin 5 mg Tab) potassium bicarbonate (K-Effervescent 25 mEq oral tablet, effervescent) tamsulosin (tamsulosin 0.4 mg Cap) Procedures Performed 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 Discharge Vitals Temperature (Temporal Artery) 36.8 ???C Heart Rate (Peripheral) 83 Respiratory Rate 18 Blood Pressure 130/78 Height 165.0 cm Height 65 in Weight 62.95 kg Weight 138.781 lb BMI 23.12 What to do next Scheduled Follow-Up Appointments Thursday 8:45 AM EDT With: Torsten DIAMOND, Romi Sinclair Where: [facility] [address] [address]- You Need to Complete the Following PAP w/ HPV and Genotype rflx, Cervical, Routine collect, 11/28/24, Order for future visit, Nurse collect, Cervical cancer screening BMI 23.0-23.9, adult Non-smoker Well woman exam Breast cancer screening by mammogram, Print Label By Order Location, [facility] Medications What How Much When Why Instructions Unchanged multivitamin with minerals (Bariatric Multivitamins with 45 mg Iron oral capsule) 1 Capsules By Mouth Every day Unchanged omeprazole (omeprazole 40 mg Cap-DR) See instructions TAKE 1 CAPSULE BY MOUTH DAILY Unchanged oxybutynin (oxybutynin 5 mg Tab) 1 Tablets By Mouth 2 times a day as needed for for urinary discomfort Kidney stones Take for kidney stone event. Unchanged potassium bicarbonate (K-Effervescent 25 mEq oral tablet, effervescent) 1 Tablets By Mouth Every day Unchanged tamsulosin (tamsulosin 0.4 mg Cap) 1 Capsules By Mouth Every day Kidney stones Take for kidney stone event. Allergies No Known Medication Allergies Problems Ongoing - Any problem that you are currently receiving treatment for. Abnormal menstruation Acquired varus deformity of right knee Arthritis Asymptomatic microscopic hematuria BMI 24.0-24.9, adult Breast cancer screening by mammogram Cervical cancer screening Foot-drop GERD (gastroesophageal reflux disease) Hernia of anterior abdominal wall Hydronephrosis Hypertension Kidney stones Non-smoker Osteoarthritis of knee Patellar maltracking Pelvic pain Rupture of anterior cruciate ligament Well woman exam Patient Survey You may receive a survey via text or e-mail asking about your office visit. Please share your experience with us by completing your survey. We appreciate your feedback and thank you for choosing us for your care. Patient Portal You may access all of your results and other medical record information on our secure patient portal. If you are not signed up for this yet, please contact [employer] at [phone] to get signed up today. Language Information Language assistance services are available as needed. Normal [facility] Family Medicine Office/Clini c Noteon 11-28-2024 Family Medicine Office/Clinic Note Family Medicine Office/Clinic Note HPI Staff Woman check up Last pap: 2023 Results of lap pap: normal Where was it done: here Hx of Hysterectomy: no hx: # of pregnancies 1 abortions 0 live births 1 living children 1 menstrual cycle (normal,heavy,ect): normal Vaginal discharge, odor, itching: none Self breast exam at home? yes, every month Last Mammogram: around november of 2023 [facility] Hx of breast, cervical or uterine cancer in the family: none History of STD: no Do you want tested for STD today: no History of Present Illness pt presents today for well woman visit Review of Systems PHQ Score Initial Depression Screen Score: 0 SCORE Physical Exam Vitals & Measurements T: 36.8 ???C(Temporal Artery) HR: 83(Peripheral) RR: 18 BP: 130/78 SpO2: 99% HT: 65 in HT: 165.0 cm WT: 138.781 lb WT: 62.95 kg BMI: 23.12 General: Well developed, well nourished, in no [...] masses. Pap obtained Neurologic: Grossly normal Skin: [place], moist, no tenting Lymph Nodes: No cervical adenopathy, nodes normal Mental Status: Alert and oriented x3. Normal mood and affect Assessment/Plan 1. Well woman exam (Z01.419: Encounter for gynecological examination (general) (routine) without abnormal findings) pt presents today for well woman visit. BSE discussed. will send mamm order to [facility]. pap obtained without difficulty. all questions answered. RTC 1 year Ordered: Est Preventative 40 to 64 years [address] PAP 360989 w/ HPV and Genotype rflx 2. Cervical cancer screening (Z12.4: Encounter for screening for malignant neoplasm of cervix) pap obtained Ordered: Est Preventative 40 to 64 years [address]42 PAP [id number] w/ HPV and Genotype rflx 3. Breast cancer screening by mammogram (Z12.31: Encounter for screening mammogram for malignant neoplasm of breast) mammogram order sent to [facility] Ordered: Est Preventative 40 to 64 years [address] MA Mamm Screen w/CAD if perf and 3D Peng PAP [id number] w/ HPV and Genotype rflx 4. BMI 23.0-23.9, adult (Z68.23: Body mass index [BMI] 23.0-23.9, adult) BMI education Ordered: Est Preventative 40 to 64 years 33165 PAP [id number] w/ HPV and Genotype rflx 5. Non-smoker (Z78.9: Other specified health status) continue not smoking Ordered: Est Preventative 40 to 64 years [address] PAP [id number] w/ HPV and Genotype rflx Follow-up No qualifying data available Problem List/Past Medical History Ongoing Abnormal menstruation Acquired varus deformity of right knee Arthritis Asymptomatic microscopic hematuria BMI 24.0-24.9, adult Breast cancer screening by mammogram Cervical cancer screening Foot-drop GERD (gastroesophageal reflux disease) Hernia of anterior abdominal wall Hydronephrosis Hypertension Kidney stones Non-smoker Osteoarthritis of knee Patellar maltracking Pelvic pain Rupture of anterior cruciate ligament Well woman exam Historical No qualifying data Procedure/Surgical History 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 Medications Bariatric Multivitamins with 45 mg Iron oral capsule, 1 cap(s), Oral, Daily K-Effervescent 25 mEq oral tablet, effervescent, 25 mEq= 1 tab(s), Oral, Daily, 11 refills omeprazole 40 mg Cap-DR, See Instructions oxybutynin 5 mg Tab, 5 mg= 1 tab(s), Oral, BID, PRN, 1 refills tamsulosin 0.4 mg Cap, 0.4 mg= 1 cap(s), Oral, Daily, 1 refills Allergies No Known Medication Allergies Social History Alcohol - Denies Alcohol Use, 02/26/2022 Never., 07/01/2024 Substance Abuse - Denies Substance Abuse, 02/26/2022 Never., 07/01/2024 Tobacco - Denies Tobacco Use, 02/26/2022 Never (less than 100 in lifetime) Tobacco Use:. Never Smokeless Tobacco Use:., 11/28/2024 Family History Arthritis: Father. Hypertension: Father. Primary malignant neoplasm of prostate: Father. Immunizations Vaccine Date Status influenza virus vaccine, inactivated 02/10/2024 Recorded influenza virus vaccine, inactivated 03/17/2023 Recorded influenza virus vaccine, inactivated 03/06/2023 Recorded influenza virus vaccine, inactivated 04/28/2022 Recorded SARS-CoV-2 (COVID-19) [id number] 04/28/2022 Recorded SARS-CoV-2 (COVID-19) mRNA BNT-162b2 vax 05/21/2021 Recorded influenza virus vaccine, inactivated 03/08/2021 Recorded SARS-Co (more content not included)... Normal [facility] Comment on above: Result Comment: Elec tronically Signed By: Radha Farley.br\Date and Time Signed: 11/28/24 10:27 EDT PAP [id number] 11-28-2024 Gynecological Body Site [facility] Normal [facility] Comment on above: Performed By: #### 1 [id number] #### [facility] [address] [place] [address] Reminderson 07-11-2024 Reminders Reminders From: Odalys Hermosillo To: EU - Recalls Lue; Sent: 03/09/2024 12:50:41 EDT Show up: 06/02/2024 12:50:00 EST Subject: OSCAR and labs for f/u appt Due Date/Time: 07/01/2024 11:50:00 EST Reminder Message Pt needs OSCAR done prior to appt on 07/06/24. Prefers [facility]. Also needs to complete BMP and repeat Litholink prior to f/u since starting Effer-K (rx'd 03/09/24). -All orders were faxed today -Pt was made aware she can call to schedule [facility] central scheduling to schedule the OSCAR, and can have BMP done that same day From: Chela Allen PA-C (EU - Recalls Lue) To: EU - Clinical; Sent: 07/01/2024 16:20:42 EST Show up: 07/01/2024 16:20:00 EST Subject: RE: OSCAR and labs for f/u appt OSCAR and labs complete. Please see if patient completed Litholink Patient was seen on 07/06/2024 and declined repeating Litholink. Normal [facility] Ambulatory Visit Summaryon 0 07-06-2024 Ambulatory Visit Summary Ambulatory Visit Summary ELIDA CALVILLO :1975 Visit Date:07/06/2024 Ambulatory Visit Instructions Your Diagnosis Kidney stones Hydronephrosis Tests Performed US Renal -- Results Pending -- Please visit your patient portal for your results or contact your primary care physician. Your Care Team Attending Physician - LuRomi morris MD Primary Care Physician - Radha Farley This Is Your Medications List potassium bicarbonate (K-Effervescent 25 mEq oral tablet, effervescent) Contact prescribing physician if questions or concerns multivitamin with minerals (Bariatric Multivitamins with 45 mg Iron oral capsule) omeprazole (omeprazole 40 mg Cap-DR) Procedures Performed 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 Discharge Vitals Heart Rate (Peripheral) 67 Respiratory Rate 18 Blood Pressure 139/75 Height 165 cm Height 65 in Weight 67 kg Weight 147.71 lb BMI 24.61 What to do next Scheduled Follow-Up Appointments Thursday 8:45 AM EDT With: Romi Sarmiento MD Where: [facility] [address] You Need to Schedule the Following Appointments Follow Up with Romi Sarmiento MD, URL, URO When: Where: Medications What How Much When Why Instructions Unchanged potassium bicarbonate (K-Effervescent 25 mEq oral tablet, effervescent) 1 Tablets By Mouth Every day Unchanged multivitamin with minerals (Bariatric Multivitamins with [...] cancer screening Foot-drop GERD (gastroesophageal reflux disease) Hydronephrosis Hypertension Kidney stones Non-smoker Osteoarthritis of knee Patellar maltracking Pelvic pain Rupture of anterior cruciate ligament Well woman exam Patient Survey You may receive a survey via text or e-mail asking about your office visit. Please share your experience with us by completing your survey. We appreciate your feedback and thank you for choosing us for your care. Education Materials Dietary Guidelines to Help Prevent Kidney Stones [...] to less than 1,500 mg a day. ??? Choose foods with calcium for each meal and snack. Try to eat about 300 mg of calcium at each meal. Foods that contain 200???500 mg of calcium a serving include: ? 8 oz (237 mL) of milk, iuwkvna-oklnfacsqsky-vs iry milk, and calcium-fortifiedfruit juice. Calcium-fortified means [...] ??? When shopping for convenience foods, choose: ? Whole pieces of fruit. ? Pre-made salads with dressing on the side. ? Low-fat fruit and yogurt smoothies. ??? Avoid buying frozen meals or prepared deli foods. These can be high in sodium. ??? Look for foods with live cultures, such as yogurt and kefir. ??? Choose high-fiber grains, such as whole-wheat breads, oat bran, and wheat cereals. Cooking ??? Do not add salt to food when cooking. Place a salt shaker on the table and (more content not included)... Normal [place] Reminderson 07-06-2024 Reminders Reminders From: Shaye Jones To: EU - Recalls Lue; Sent: 07/06/2024 09:51:03 EST Show up: 12/03/2024 10:50:00 EDT Subject: OSCAR @ [facility] Due Date/Time: 12/03/2024 10:51:00 EDT Reminder Message OSCAR prior to 6 mos appt at [facility]. Order placed. Normal [facility] Reminders Reminders From: Shaye Jones To: EU - Pending Results; Sent: 07/06/2024 09:27:55 EST Show up: 12/03/2024 10:27:00 EDT Subject: Renal US @ [facility] Due Date/Time: 12/03/2024 10:27:00 EDT Reminder Message OSCAR prior to 6 mos appt at [facility]. Order placed. Normal [facility] Urology Office/Clinic Noteon 07-06-2024 Urology Office/Clinic Note Urology Office/Clinic Note Chief Complaint 3 mo f/u HPI Staff 48yr old female pt here for 3mo f/u OSCAR, BMP, LithoLink. OSCAR done 06/25/24 showed no hydronephrosis. BMP done x2 on 05/23/24 & 06/25/24. Pt passed a 3-4mm stone right before Thanksgi. Previous Dx: kidney stones, hydronephrosis Dysuria: denies Incomplete bladder emptying: denies Hematuria: denies Frequency: every 3-4hrs Urgency: denies Nocturia: rarely, only 1x Stream: good stream Leaking: denies Post void dripping: denies Wearing pads/ Depends: denies Urge incontinence: denies Stress incontinence: denies Incontinence without Sensory Awareness: denies Abdominal pain: denies Flank pain: denies History of Present Illness Tests reviewed: reviewed UA, labs, renal US. I have reviewed the previous health record information and history for this patient from Dr. Sarmiento I have reviewed and verified the staff [...] HPI. Physical Exam Vitals & Measurements HR: 67(Peripheral) RR: 18 BP: 139/75 HT: 65 in HT: 165 cm WT: 67 kg WT: 147.71 lb BMI: 24.61 General Appearance: alert , no acute distress, well nourished, well developed female. Assessment/Plan 48 yo female with history of gastric bypass and recurrent kidney stones presents for follow up. BBSQ 3 (6) 1. Kidney stones (N20.0: Calculus of kidney) Hx of gastric bypass surgery - risk factor for stones. Family hx - mother with stones. [1] CT AP w IV/PO con 05/27/22 [facility] - 5 mm R UPJ, 1 mm R UVJ stone, mild hydronephrosis and delayed nephrogram. 3 mm L UVJ stone, 2 to 3 mm nonobstructing renal calculi. CT AP w/o contrast 07/10/22 - R hydroureteronephrosis 6 x 5 x 4 mm distal ureteral stone. RLP 2 mm stone, LLP 3.5 mm stone. S/p Cysto, Right URS w/ laser litho, stone extraction, string stent placed. Stent removed at home without complications. Stone analysis 20% CaOx monohydrate, 80% CaOx dihydrate. OSCAR 08/30/22 - BL stones - tiny RLP stone, 3.5 mm left stone KUB 05/18/23 [facility] - 5mm RLP stone. 1cm LLP. Personal review: stones are overestimated in size, likely multiple small stones. OSCAR 05/18/23 [facility] - 1.4cm stone in L renal pelvis (likely lower pole) and 7mm RLP LithoLink 11/02/22 - 1340 mL vol, mildly Ca 222, low citrate 384, high oxalate 59. Metabolic serum workup 09/04/22 all wnl. Litholink 07/05/23 - 2160 mL vol, U24 Ca 256 H, U24 Na 158 H, U24 Phos [address] AP w con 09/02/23 [facility] - 14 mm L renal stone. Several small Bl stones. OSCAR 11/30/23 [facility] - BL stones: R largest 6 x 5 x 3 mm. L largest 18 x 10 x 6 mm. No hydro. KUB 11/30/23 [facility] - Several small calcifications BL, largest on L 18 mm collection of stones. S/p Cysto, L RPG, URS laser litho/stone extraction, stent on string placement 01/13/24 - >2cm stone burden in lower pole. Stone analysis 01/13/24 - 70% CaOx [place], 30% Di. KUB 03/04/24 [facility] - 5 mm stone RIP. No L renal stones. OSCAR 03/04/24 [facility] - small L stones, largest 2mm. Renal pelvis is upper limits of normal in width but no appreciable dilation of the calyces. Mild dilatation of renal pelvis and calyces. Several nonobstructing stones in R kidney, largest 5mm. Personal review: No L hydro, mild R pelviectasis Pt was switched from calcium citrate to Effer-K 25 mEq qd at last visit. Doing well, would like to cont Labs 05/23/24 - wnl. Reports she did not have litholink done because it wasn't mailed to her (order in chart that was faxed) Pt declines repeating litholink. Renal US 06/25/24 [facility] - 6 mm LUP stone UA today shows small leuks. Pt reports she passed a stone around Thanksgiving, believes it was 3-4 mm. Unsure which side. Pt has a chance of passing left-sided stone on her own. Again advised pt that ultrasounds tend to overestimate stone size. Will order CT if pt becomes symptomatic of stone- declined at this time. Will provide scripts for Flomax and Oxybutynin for potential stone event in the future. Counseled pt on possible SE of each medication. Declines repeat litholink now -Scripts sent for Flomax 0.4mg qd and Oxybutynin 5mg bid for stone event only -Cont fluids and med wo changes. -Order CT if pt becomes symptomatic of stone -Renal US in 6 mos, recall placed, declines KUB to consider ESWL Follow up in 6 mos or sooner if needed. 2. Hydronephrosis (N13.30: Unspec (more content not included)... Normal [facility] Comment on above: Result Comment: Elec tronically Signed By: Romi Sarmiento MD\.br\Date and Time Signed: 07/06/24 09:55 EST\.br\Electronically Co-Signed By: Shaye Jones\.br\Date and Time Co-Signed: 07/06/24 09:27 EST\.br\Electronically Co-Signed By: Shaye Jones\.br\Date and Time Co-Signed: 07/06/24 09:28 EST Basic Metabolic Panelon 06-02 Anion gap [Moles/Vol] 10.1 mmol/L Normal 6.0-15.0 [facility] Comment on above: Performed By: #### B MP #### [address] Calcium [Mass/Vol] 9.2 mg/dL Normal 8.6-10.3 [facility] Comment on above: Result Comment: PERF ORMED BY: [place] [address] PATHOLOGIST SPECIAL TECHNICAL OPERATIONS OFFICER ABEL RAM M.D. Performed By: #### B MP #### [place] [address] [place] Chloride [Moles/Vol] 105 mmol/L Normal 98-107 [facility] Comment on above: Performed By: #### B MP #### [place] [address] [place] CO2 [Moles/Vol] 30.1 mmol/L Normal 21.0-31.0 [facility] Comment on above: Performed By: #### B MP #### [place] [id number] [place] Creatinine [Mass/Vol] 0.81 mg/dL Normal 0.60-1.20 [facility] Comment on above: Performed By: #### B MP #### [place] [address] [place] GFR/1.73 sq M.predicted MDRD (S/P/Bld) [Vol rate/Area] mL/min/{1.73_m2} Normal [facility] Comment on above: Performed By: #### B MP #### [address] Glucose [Mass/Vol] 68 mg/dL Low 70-100 [facility] Comment on above: Result Comment: [facility] Glucose Reference Range is dependent on time and content of last meal. Glucose of more than 200 mg/dL in a nonstressed, ambulatory subject supports the diagnosis of Diabetes Mellitus. ADA recommended reference range Performed By: #### B MP #### [address] Potassium [Moles/Vol] 4.2 mmol/L Normal 3.5-5.1 [facility] Comment on above: Performed By: #### B MP #### [place] [address] [place] Sodium [Moles/Vol] 141 mmol/L Normal 136-145 [facility] Comment on above: Performed By: #### B MP #### [address] Urea nitrogen [Mass/Vol] 12 mg/dL Normal 7-25 [facility] Comment on above: Performed By: #### B MP #### [address] US renal BIon 06-25-2024 US renal BI [facility] [place] [address] [place] [address] Ultrasound Report Signed Patient: Elida Calvillo MR#: [id number] : 1975 Acct:[id number] Age/Sex: 48 / F ADM Date: 06/25/24 Loc: Room: Type: [facility] Attending Dr: Romi Sarmiento MD Ordering Provider: Romi Sarmiento MD Date of Service: 06/25/24 US/US renal BI: N13.30,N20.0 Copies to: Romi Sarmiento MD Bilateral Renal Ultrasound HISTORY: Bilateral nephrolithiasis COMPARISON: None RIGHT kidney measures 10.4 cm. LEFT kidney measures 10.3 cm. Hydronephrosis: None RENAL STONE: 6 mm shadowing echogenic focus measures superior portion of left kidney consistent with nonobstructing stone. RENAL LESIONS: No renal lesion identified. URINARY BLADDER: Bilateral ureteral jets consistent with patent ureters REPRODUCTIVE STRUCTURES Not assessed US/US renal BI IMPRESSION : No hydronephrosis. Impression dictated by: Carlos A Ba M.D.06/25/2024 10:58 AM Dictation Location: [place] [address] Tech: Vijaya Coe Transcribed By: CHIDI 06/25/24 1058 Dictated By: Carlos A Ba DO 06/25/24 1057 Signed By: 06/25/24 1058 Normal [facility] XR Knee - right 3 [facility] Result: Xrays taken in the office today saved to the permanent record, AP, sunrise and lateral weightbearing films, show stable position and alignment of the right TKA prosthesis. No sign of loosening, fracture or infection. Mild to medium left knee OA. [facility] Radiology Study observation (narrative) [facility] Ambulatory Visit Summaryon 1 Ambulatory Visit Summary Ambulatory Visit Summary ELIDA CALVILLO :1975 Visit Date:03/09/2024 Ambulatory Visit Instructions Your Diagnosis Kidney stones Hydronephrosis Tests Performed US Renal -- Results Pending -- Please visit your patient portal for your results or contact your primary care physician. Your Care Team Attending Physician - Torsten DIAMOND, Romi Sinclair Primary Care Physician - Radha Farley This Is Your Medications List potassium bicarbonate (K-Effervescent 25 mEq oral tablet, effervescent) Contact prescribing physician if questions or concerns multivitamin with minerals (Bariatric Multivitamins with 45 mg Iron oral capsule) omeprazole (omeprazole 40 mg Cap-DR) [Image Removed: STOP]Stop taking these medications calcium citrate (calcium citrate Tab) Procedures Performed 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 Discharge Vitals Heart Rate (Peripheral) 76 Blood Pressure 134/80 Height 165 cm Height 65 in Weight 66 kg Weight 145.2 lb BMI 24.24 What to do next Scheduled Follow-Up Appointments Thursday 8:45 AM EST With: Romi Sarmiento MD Where: [facility] [address] [place] [address] [place] [address]- You Need to Schedule the Following Appointments Follow Up with Torsten DIAMOND, Romi Sinclair, URL, URO When: Where: [address] [place] [address]- [phone] Medications What How Much When Why Instructions New potassium bicarbonate (K-Effervescent 25 mEq oral tablet, effervescent) 1 Tablets By Mouth Every day Refills: 11 Pickup at [id number] Unchanged multivitamin with minerals (Bariatric Multivitamins with 45 mg Iron oral capsule) 1 Capsules By Mouth Every day Contact prescribing physician if questions or concerns Unchanged omeprazole (omeprazole 40 mg Cap-DR) 1 Capsules By Mouth Every day Pelvic pain Abnormal menstruation GERD (gastroesophageal reflux disease) BMI 23.0-23.9, adult Contact prescribing physician if questions or concerns Pharmacy Information [id number]: [address] [place], [place] [phone] What How Much When Comments Stop Taking calcium citrate (calcium citrate Tab) 500 Milligram By Mouth 2 times a day 2 tabs twice a day Allergies No Known Medication Allergies Problems Ongoing - Any problem that you are currently receiving treatment for. Abnormal menstruation Acquired varus deformity of right knee Arthritis Asymptomatic microscopic hematuria BMI 24.0-24.9, adult Breast cancer screening by mammogram Cervical cancer screening Foot-drop GERD (gastroesophageal reflux disease) Hydronephrosis Hypertension Kidney stones Non-smoker Osteoarthritis of knee Patellar maltracking Pelvic pain Rupture of anterior cruciate ligament Well woman exam Patient Survey You may receive a survey via text or e-mail asking about your office visit. Please share your experience with us by completing your survey. We appreciate your feedback and thank you for choosing us for your care. Education Materials Hydronephrosis Hydronephrosis is the swelling of one or both kidneys due to a blockage that stops urine from flowing out of the body. Kidneys filter waste from the blood and produce urine. This condition can lead to kidney failure and may become life-threatening if not treated promptly. What are the causes? In infants and children, common causes include problems that occur when a baby is developing in the womb. These can include problems in the kidneys or in the tubes that drain urine into the bladder (ureters). In adults, common causes include: ? Kidney stones. ? . ? A tumor or cyst in the abdomen or pelvis. ? An enlarged prostate gland. Other causes include: ? Bladder infection. ? Scar tissue from a previous surgery or injury. ? A blood clot. ? Cancer of the prostate, bladder, uterus, ovary, or colon. What are the signs or symptoms? Symptoms of this condition include: ? Pain or discomfort in your side (flank) or abdomen. ? Swelling in your abdomen. ? Nausea and vomiting. ? Fever. ? Pain when passing urine. ? Feelings of urgency when you need to urinate. ? Urinating more often than normal. In some cases, you may not have any symptoms. How is this diagnosed? This condition may be diagnosed based on: ? Your symptoms and medical history. ? A physical exam. ? Blood and urine tests. ? Imaging tests, such as an ultrasound, CT scan, or MRI. ? A procedure to look at your urinary tract and bladder by inserting a scope into the urethra (cystoscopy). How is this treated? Treatment for this condition depends on where the blockage is, how long it has been there, and what caused (more content not included)... Normal [facility] Urology Office/Clinic Noteon 03-09-2024 Urology Office/Clinic Note Urology Office/Clinic Note Chief Complaint Patient in office for f/u with OSCAR. HPI Staff 48 yr old female here for f/u w/ OSCAR @ [facility]. Previous dx: Kidney Stone & Microscopic Hematuria. Patient denies any issues or concerns at this time. Patient had the OSCAR done on 03/04/24 which showed PENG nonobstructing nephrolithiasis, and mild RT hydronephrosis and questionable LT hydronephrosis, report notes that distal ureteral stone cannot be excluded. Dysuria: denies Incomplete bladder emptying: denies Hematuria: denies Frequency: denies Urgency: denies Nocturia: denies Stream: steady Leaking: denies Post void dripping: denies Wearing pads/ Depends: denies Urge incontinence: denies Stress incontinence: denies Incontinence without Sensory Awareness: denies Abdominal pain: denies Flank pain: denies Sexual complaints: _ History of Present Illness Tests reviewed: reviewed UA, operative report, stone analysis, OSCAR, KUB I have reviewed the previous [...] HPI. Physical Exam Vitals & Measurements HR: 76(Peripheral) BP: 134/80 HT: 65 in HT: 165 cm WT: 66 kg WT: 145.2 lb BMI: 24.24 General Appearance: alert , no acute distress, well nourished, well developed female. Assessment/Plan 48 yo female with history of gastric bypass and recurrent kidney stones presents for follow up BBS 6 (5). 1. Kidney stones (N20.0: Calculus of kidney) Hx of gastric bypass surgery - risk factor for stones. Family hx - mother with stones. [1] CT AP w IV/PO con 05/27/22 [facility] - 5 mm R UPJ stone, 1 mm [...] review: appears to be collection of stones. S/p Cysto, L RPG, URS laser litho/stone extraction, stent on string placement 01/13/24 - >2cm stone burden in lower pole. Stone analysis 01/13/24 - 70% CaOx [place], 30% Di. KUB 03/04/24 [facility] - 5 mm stone RIP. No L renal stones. OSCAR 03/04/24 [facility] - Several small L nonobstructing stones, largest 2mm. Renal pelvis is upper limits of normal in width but no appreciable dilation of the calyces. Mild dilatation of renal pelvis and calyces. Several nonobstructing stones in R kidney, largest 5mm. Personal review: No L hydro, mild R pelviectasis Previously discussed trying potassium citrate, pt discussed this with gastro and was given clearance to switch from calcium citrate to potassium citrate. Discussed need for checking labs after starting this med to ensure K is wnl. Also mentioned consideration of repeating metabolic workup at least 6wks after taking this med. Reviewed imaging results. UA today negative for blood and infection. No flank pain or discomfort. Discussed stones are small and passable (largest stone is <5mm as ultrasounds overestimate size). No indication for intervention at this time. Discussed r (more content not included)... Normal [facility] Comment on above: Result Comment: Elec tronically Signed By: Romi Sarmiento MD\.br\Date and Time Signed: 03/09/24 13:59 EDT\.br\Electronically Co-Signed By: Odalys Hermosillo\.br\Date and Time Co-Signed: 03/09/24 10:12 EDT Provider Letteron 01-25-2024 Provider Letter Provider Letter January 25, 2024 ELIDA CALVILLO [address] [place] [address] : 1975 To Whom It May Concern, Please excuse the above named patient from work. Date of Illness: From: 01/13/2024 To: 01/27/2024 May Return to Work On: 01/27/2024 Restrictions: None Comments: _ Sincerely, Dr. Romi Sarmiento MD [address] [place] [id number] [facility] Ambulatory Visit Summaryon 0 2023 Ambulatory Visit Summary Ambulatory Visit Summary ELIDA CALVILLO :1975 Visit Date:2023 Ambulatory Visit Instructions Your Diagnosis Kidney stones Asymptomatic microscopic hematuria Your Care Team Attending Physician - Torsten DIAMOND, Romi Sinclair Primary Care Physician - Radha Farley This [...] Following Appointments Follow Up with Torsten DIAMOND, KT Jolley, URO When: Where: [address] [place] [phone] Medications What How Much When Why Instructions [...] including vitamins, herbs, eye drops, creams, and xncu-srk-mbzludz medicines. ? Any problems you or family [...] tells you to take them. ? Taking tdpf-oyu-oioabmf medicines, vitamins, herbs, and supplements. Eating and drinking Follow instructions from your health care provider about eating and drinking, which may include: ? 8 oren (more content not included)... Normal [facility] Urology Office/Clinic Noteon 2023 Urology Office/Clinic Note Urology Office/Clinic Note Chief Complaint 6m OSCAR/KUB & Metabolic Work Up HPI Staff 6m KUB & OSCAR & Metabolic Work Up DX: Kidney Stone & Microscopic Hematuria *No Urology Meds Litholink completed 07/05/23 Pt did go to the [facility] ER 09/02/23 CC: LUQ pain DX: [...] - mother with stones. [1] Presented to [facility] ER on 05/27/22- CT AP with [...] order Gener (more content not included)... Normal [facility] Comment on above: Result Comment: Elec [...] in the family: no Pt is seeing spelicaiNovember 18 for the free floating clamp History [...] masses. Pap obtained Neurologic: Grossly normal Skin: [place]by, moist, no tenting Lymph Nodes: No cervical [...] 10/27/23 9:44:00 EDT, 10/27/23 9:44:00 EDT PAP [id number] w/ HPV and Genotype rflx 2. Cervical cancer screening (Z12.4: Encounter for screening for malignant neoplasm of cervix) pap obtained without diffiuclty Ordered: triamcinolone, 40 mg = 1 mL, Injection, IntraMuscular, Once, Stop date 10/27/23 9:44:00 EDT, Routine, Start date 10/27/23 9:44:00 EDT, 10/27/23 9:44:00 EDT PAP [id number] w/ HPV and Genotype rflx 3. Breast cancer screening by mammogram (Z12.31: Encounter for screening mammogram for malignant neoplasm of breast) mammogram order provided 4. BMI 24.0-24.9, adult (Z68.24: Body mass index [BMI] 24.0-24.9, adult) BMI education complete Ordered: triamcinolone, 40 mg = 1 mL, Injection, IntraMuscular, Once, Stop date 10/27/23 9:44:00 EDT, Routine, Start date 10/27/23 9:44:00 EDT, 10/27/23 9:44:00 EDT PAP [id number] w/ HPV and Genotype rflx 5. Non-smoker (Z78.9: Other specified health status) continue not smoking Ordered: triamcinolone, 40 mg = 1 mL, Injection, IntraMuscular, Once, Stop date 10/27/23 9:44:00 EDT, Routine, Start date 10/27/23 9:44:00 EDT, 10/27/23 9:44:00 EDT PAP [id number] w/ HPV and Genotype rflx Follow-up No [...] virus vaccine, inactivated 04/28/2022 Recorded SARS-CoV-2 (COVID-19) [id number].ORD![id number] 04/28/2022 (more content not included)... [facility] Comment on above: Result Comment: Elec tronically Signed By: Radha Farley\.jens\Date and Time Signed: 11/02/23 08:55 EDT Physician Orderon 10-27-2023 Physician Order [id number]#1.00T IFF [facility] Family Medicine Office/Clini c Noteon 10-14-2023 Family Medicine Office/Clinic Note HPI Staff Elida is a 47 year female presenting for 1 month follow up GERI 09/11/23 pelvic pain, pelvic u/s ordered through [facility], started omeprazole Pt states intermittently will [...] virus vaccine, inactivated 04/28/2022 Recorded SARS-CoV-2 (COVID-19) [id number].[id number] 04/28/2022 Recorded SARS-CoV-2 (COVID-19) mRNA BNT-162b2 vax [...] virus vaccine, inactivated 04/24/2013 Recorded Normal [facility] Comment on above: Result Comment: Elec tronically Signed By: Radha Farley\.br\Date and Time Signed: 10/14/23 16:50 EDT Physician Referralon 024 Physician Referral [id number] TIFF Normal [facility] RAD - Ultrasound Reporton RAD - Ultrasound Report [id number]#1.00T IFF Normal [facility] Ambulatory Visit Summaryon 0 09-11-2023 Ambulatory [...] 4:40 PM EDT With: Radha Farley Where: [facility] Normal [address] [place] [id number]- \.br\ Medications\.br\ What How Much When Why Instructions\.br \ New omeprazole (omeprazole 40 mg Cap-DR) 1 Capsules By Mouth Every day Pelvic pain Abnormal menstruation GERD (gastroesophagea l reflux disease) BMI 23.0-23.9, adult Refills: 3 Pickup at [facility] #[id number]\.br\ Unchanged calcium citrate (calcium citrate Tab) 500 [...] knee surgery nausea/ vomiting \.br\ Pharmacy Information\.br\ [facility] #[id number]: [address], [place] [id number] [phone]\.br\ Allergies\.br\ No Known Medication Allergies\.br\ Problems\.br\ Ongoing [...] for choosing us for your care.\.br\ \.br\ [facility] Family Medicine Office/Clini c Noteon 09-11-2023 Family Medicine Office/Clinic Note Chief Complaint ED follow up HPI Staff Elida is a 47 year old female presenting for ER follow up ER followup: Hospital: [facility] Visit date: 09/02/23 Symptoms the patient [...] floating ovary. will order pelvic u/s at [facility]. RTC 4 weeks. may consider referral to Dr. Palomares if u/s is abnormal Ordered: omeprazole, 40 mg = 1 cap(s), Oral, Daily, # 90 cap(s), Refills(s) 3, Pharmacy: [facility] #[id number], 165, cm, 09/11/23 11:19:00 EDT, Height/Length Dosing, 64.8, kg, 09/11/23 11:19:00 EDT, Weight Dosing 2. Abnormal menstruation (N92.6: Irregular menstruation, unspecified) periods every 2 weeks Ordered: omeprazole, 40 mg = 1 cap(s), Oral, Daily, # 90 cap(s), Refills(s) 3, Pharmacy: [facility] #[id number], 165, cm, 09/11/23 11:19:00 EDT, Height/Length Dosing, [...] Daily, # 90 cap(s), Refills(s) 3, Pharmacy: [facility] #[id number], 165, cm, 09/11/23 11:19:00 EDT, Height/Length Dosing, 64.8, kg, 09/11/23 11:19:00 EDT, Weight Dosing 4. BMI 23.0-23.9, adult (Z68.23: Body mass index [BMI] 23.0-23.9, adult) BMI education complete Ordered: omeprazole, 40 mg = 1 cap(s), Oral, Daily, # 90 cap(s), Refills(s) 3, Pharmacy: [facility] #[id number], 165, cm, 09/11/23 11:19:00 EDT, Height/Length Dosing, [...] virus vaccine, inactivated 04/28/2022 Recorded SARS-CoV-2 (COVID-19) mRNAMUL.[id number] 04/28/2022 Recorded SARS-CoV-2 (COVID-19) mRNA BNT-162b2 vax 05/21/2021 Recorded influenza virus vaccine, inactivated 03/08/2021 Recorded SARS-CoV-2 (COVID-19) mRNA BNT-162b2 vax 09/20/2020 Recorded SARS-CoV-2 (COVID-19) mRNA BNT-162b2 vax 08/30/2020 Recorded influenza virus vaccine, inactivated 02/08/2020 Recorded influenza virus vaccine, inacti (more content not included)... Normal [facility] Comment on above: Result Comment: Elec tronically Signed By: Radha Farley\.br\Date and Time Signed: 09/11/23 11:42 EDT Physician Orderon 09-11-2023 Physician Order [id number] IFF Normal [facility] ED Note-Physicianon 09-03-19 ED Note-Physician [id number] IFF Normal [facility] PTH INTACTon 09-05-2022 PTH, Intact 16 pg/mL Normal 15-65 [facility] Comment on above: Performed By: #### E RURFLORENCIORO #### [facility] [address] [place] [address] [address] Sandra Castano URIC ACID SERUMon 09-04-2022 Urate [Mass/Vol] 4.4 mg/dL Normal 2.6-6.0 [facility] Comment on above: Performed By: #### L IPA, CMP #### [facility] [address] [place], [place] [address] Dr. Sandra Castano US KIDNEYSon 08-31-2022 US KIDNEYS US KIDNEYS EXAM DATE: 08/30/2022 7:55 AM MDT COMPARISON: Ultrasound kidney is 06/30/2022, 06/06/2022; CT abdomen and pelvis 07/10/2022. INDICATION: Kidney stones. History of stone and stent removal. TECHNIQUE: Real-time ultrasound scanning of the kidneys and bladder was performed by the atomizer assembler. Radio Interference Investigator static images are submitted for review. FINDINGS: [...] MAISHA ESTRADA Date: 2022-08-31 13:15 Normal [facility] CALCULI, URINARYon 3 2,8 Dihydroxyadenine Normal [facility] Comment on above: Performed By: #### C ALCULI #### [facility] [address] [place] [address] [address] Sandra Castano Ammonium Acid Urate Normal [facility] Comment on above: Performed By: #### C ALCULI #### [facility] [address] [place] [address] [address] Sandra Castano Bilirubin Ql (U) Normal [facility] Comment on above: Performed By: #### C ALCULI #### [facility] [address] [place] [address] [address] Sandra Castano Ca Oxalate Dihydrate 80 % Normal [facility] Comment on above: Performed By: #### C ALCULI #### [facility] [address] [place] [address] [address] Sandra Castano CaHPO4 (Brushite) [facility] Comment on above: Performed By: #### C ALCULI #### [facility] [address] [place] [address] [address] Sandra Castano Calcium Bilirubinate Normal [facility] Comment on above: Performed By: #### C ALCULI #### [facility] [address] [place] [address] [address] aSndra Castano Calcium Carbonate [facility] Comment on above: Performed By: #### C ALCULI #### [facility] [address] [place] [address] [address] Sandra Castano Calcium Oxalate Monohydrate 20 % [facility] Comment on above: Performed By: #### C ALCULI #### [facility] [address] [place] [address] [address] Sandra Castano Calcium Palmitate Normal [facility] Comment on above: Performed By: #### C ALCULI #### [facility] [address] [place] [address] [address] Sandra Castano Calcium Phosphate [facility] Comment on above: Performed By: #### C ALCULI #### [facility] [address] [place] [address] [address] Sandra Castano Calcium Stearate Normal [facility] Comment on above: Performed By: #### C ALCULI #### [facility] [address] [place] [address] [address] Sandra Castano Carbonate Apatite Normal [facility] Comment on above: Performed By: #### C ALCULI #### [facility] [address] [place] [address] [address] Sandra Castano Cellular Material [facility] Comment on above: Performed By: #### C ALCULI #### [facility] [address] [place] [address] [address] Sandra Castano Cholesterol [facility] Comment on above: Performed By: #### C ALCULI #### [facility] [address] [place] [address] Dr. Sandra Castano Color (U) Hahn Normal [facility] Comment on above: Performed By: #### C ALCULI #### [facility] [address] [place] [address] Dr. Sandra Castano Comment Normal [facility] Comment on above: Performed By: #### C ALCULI #### [facility] [address] [place] [address] Dr. Sandra Castano Comment Comment Normal [facility] Comment on above: Result Comment: Calc ulus received wet. Wet calculi must be dried before analysis, which delays reporting of results. Leaving calculi wet (such as water, saline, blood, urine) may lead to changes in composition. Performed By: #### C ALCULI #### [facility] [address] [place] [address] Dr. Sandra Castano Comment: Comment Normal [facility] Comment on above: Result Comment: [facility] questions regarding Calculi Analysis contact [employer] at: [phone]. Performed By: #### C ALCULI #### [facility] [address] [place] [address] Dr. Sandra Castano Composition Comment [facility] Comment on above: Result Comment: Perc entage (Represents the % composition) Performed By: #### C ALCULI #### [facility] [address] [place] [address] Dr. Sandra Castano Cystine [facility] Comment on above: Performed By: #### C ALCULI #### [facility] [address] [place] [address] Dr. Sandra Castano Disclaimer: Comment [facility] Comment on above: Result Comment: This test was developed and its performance characteristics determined by [employer]. It has not been cleared or approved by the Food and Drug Administration. Performed By: #### C ALCULI #### [facility] [address] [place] [address] Dr. Sandra Castano Dried Blood [facility] Comment on above: Performed By: #### C ALCULI #### [facility] [address] [place] [address] [address] Sandra Castano Drug or Metabolite Normal [facility] Comment on above: Performed By: #### C ALCULI #### [facility] [address] [place] [address] [address] Sandra Castano Hydroxyapatite Normal [facility] Comment on above: Performed By: #### C ALCULI #### [facility] [address] [place] [address] [address] Sandra Castano Mg NH4 PO4 (Struvite) [facility] Comment on above: Performed By: #### C ALCULI #### [facility] [address] [place] [address] [address] Sandra Castano MgHPO4 (Newberyite) [facility] Comment on above: Performed By: #### C ALCULI #### [facility] [address] [place] [address] Dr. Sandra Castano Other component(s) Normal [facility] Comment on above: Performed By: #### C ALCULI #### [facility] [address] [place] [address] Dr. Sandra Castano PDF . [facility] Comment on above: Performed By: #### C ALCULI #### [facility] [address] [place] [address] [address] Sandra Castano Photo Comment [facility] Comment on above: Result Comment: Phot ograph will follow under a separate cover Performed By: #### C ALCULI #### [facility] [address] [place] [address] Dr. Sandra Castano Please note: Comment [facility] Comment on above: Result Comment: Calc chica report will follow via computer, mail or shine worker delivery. Performed By: #### C ALCULI #### [facility] [address] [place] [address] [address] Sandra Castano Size 2x1 Normal [facility] Comment on above: Result Comment: Mult iple pieces received. Dimensions of the largest piece reported. Performed By: #### C ALCULI #### [facility] [address] [place] [address] Dr. Sandra Castano Sodium Acid Urate Normal [facility] Comment on above: Performed By: #### C ALCULI #### [facility] [address] [place] [address] [address] Sandra Castano Source Comment Normal [facility] Comment on above: Result Comment: Rigjosee t Ureter Performed By: #### C ALCULI #### [facility] [address] [place] [address] [address] Sandra Castano Triamterene [facility] Comment on above: Performed By: #### C ALCULI #### [facility] [address] [place] [address] [address] Sandra Castano Uric Acid [facility] Comment on above: Performed By: #### C ALCULI #### [facility] [address] [place] [address] [address] Sandra Castano Uric Acid Dihydrate [facility] Comment on above: Performed By: #### C ALCULI #### [facility] [address] [place] [address] [address] Sandra Castano Weight 9 mg [facility] Comment on above: Performed By: #### C ALCULI #### [facility] [address] [place] [address] [address] Sandra Castano Xanthine [facility] Comment on above: Performed By: #### C ALCULI #### [facility] [address] [place] [address] [address] Sadnra Castano PREG HCG QUALon 07-30-2022 , QUAL Negative Normal NEGATIVE [facility] Comment on above: Performed By: #### C ALCULI #### [facility] [address] [address] [address] Sandra Castano PROF CHEM 8 (BAS METB)on Anion gap [Moles/Vol] 12.7 mmol/L [facility] Comment on above: Performed By: #### C ALCULI #### [facility] [address] [place] [address] [address] Sandra Castano Calcium [Mass/Vol] 9.6 mg/dL Normal 8.5-10.1 [facility] Comment on above: Performed By: #### C ALCULI #### [facility] [address] [address] [address] Sandra Castano Chloride [Moles/Vol] 101 mmol/L Normal 98-107 [facility] Comment on above: Performed By: #### C ALCULI #### [facility] [address] [address] [address] Sandra Castano CO2 [Moles/Vol] 30.4 mmol/L Normal 21.0-32.0 [facility] Comment on above: Performed By: #### C ALCULI #### [facility] [address] [address] [address] Sandra Castano Creatinine [Mass/Vol] 0.65 mg/dL Normal 0.55-1.02 [facility] Comment on above: Performed By: #### C ALCULI #### [facility] [address] [place] [address] [address] Sandra Castano EGFR-AF TUNISIAN >60 Normal >=60 [facility] Comment on above: Performed By: #### C ALCULI #### [facility] [address] [address] [address] Sandra Castano EGFR-NON AF TUNISIAN >60 Normal >=60 [facility] Comment on above: Performed By: #### C ALCULI #### [facility] [address] [address] [address] Sandra Castano Glucose [Mass/Vol] 121 mg/dL Critically high 74-106 [facility] Comment on above: Performed By: #### C ALCULI #### [facility] [address] [address] [address] Sandra Castano Potassium [Moles/Vol] 4.1 mmol/L Normal 3.5-5.1 [facility] Comment on above: Performed By: #### C ALCULI #### [facility] [address] [place] [address] Dr. Sandra Castano Sodium [Moles/Vol] 140 mmol/L Normal 136-145 [facility] Comment on above: Performed By: #### C ALCULI #### [facility] [address] [place] [address] Dr. Sandra Castano Urea nitrogen [Mass/Vol] 17.0 mg/dL Normal 7.0-18.0 [facility] Comment on above: Performed By: #### C ALCULI #### [facility] [address] [place] [address] Dr. Sandra Castano Urea nitrogen/Creatinin e [Mass ratio] 26.2 mg/mg Normal [facility] Comment on above: Performed By: #### C ALCULI #### [facility] [address] [place] [address] Dr. Sandra Castano PROTIMEon 07-18-2022 INR Coag (PPP) [Relative time] 0.97 {INR} Normal [facility] [facility] Comment on above: Performed By: #### L IPA, CMP #### [facility] [address] [place] [address] Dr. Sandra Castano INR GUIDELINES SEE BELOW Normal [facility] Comment on above: Result Comment: DUNIA RED INR: 2.0 - 3.0 CONDITIONS NOT LISTED BELOW 2.5 - 3.5 FOR PROSTHETIC HEART VALVE REPLACEMENT 2.5 - 3.5 RECURRENT THROMBOSIS Performed By: #### L IPA, CMP #### [facility] [address] [place] [address] Dr. Sandra Castano PT Coag (PPP) [Time] 10.3 s Normal 9.0-11.6 [facility] Comment on above: Performed By: #### L IPA, CMP #### [facility] [address] [place] [address] Dr. Sandra Castano PTTon 07-18-2022 aPTT Coag (Bld) [Time] 29.1 s Normal 22.3-36.2 [facility] Comment on above: Performed By: #### L IPA, CMP #### [facility] [address] [place] [address] ABD/PELVIS WO CONon [...] by: ETTA CEDEÑO Date: 2022-07-10 13:31 Normal [facility] US KIDNEYSon 06-30-2022 US KIDNEYS EXAMINATION: [...] by: ETTA CEDEÑO Date: 2022-06-30 16:31 Normal [facility] XR KUB 1 VIEWon 06-30-2022 [...] ETTA CEDEÑO Date: 2022-06-30 17:20 Normal [facility] US KIDNEYSon 06-06-2022 US KIDNEYS EXAMINATION: US NICHOLE WALKER HISTORY: Kidney stone COMPARISON: CT abdomen pelvis [...] by: ETTA CEDEÑO Date: 2022-06-06 12:32 Normal [facility] XR KUB 1 VIEWon 06-06-2022 XR [...] by: ETTA CEDEÑO Date: 2022-06-06 12:36 Normal [facility] CT ABD/PELV W CONon 05-28-20 22 [...] MEGHA RESENDIZ Date: 2022-05-27 23:14 Normal [facility] CBC AUTO DIFFon 05-27-2022 BASO # 0.0 103/ul Normal 0.0-0.1 [facility] Comment on above: Performed By: #### C ALCULI #### [facility] [address] [place] [address] Dr. Sandra Castano Basophils/100 WBC (Bld) 0.4 % Normal 0.2-2.0 [facility] Comment on above: Performed By: #### C ALCULI #### [facility] [address] [place] [address] Dr. Sandra Castano EO # 0.0 103/ul Normal 0.0-0.7 [facility] Comment on above: Performed By: #### C ALCULI #### [facility] [address] [place] [address] Dr. Sandra Castano Eosinophils/100 WBC (Bld) 0.1 % Critically low 0.9-7.0 [facility] Comment on above: Performed By: #### C ALCULI #### [facility] [address] [place] [address] Dr. Sandra Castano Erythrocyte distribution width (RBC) [Ratio] 13.0 % Normal 11.0-15.0 [facility] Comment on above: Performed By: #### C ALCULI #### [facility] [address] [address] [address] Sandra Castano Hematocrit (Bld) [Volume fraction] 37.1 % Normal 36.0-48.0 [facility] Comment on above: Performed By: #### C ALCULI #### [facility] [address] [place] [address] Dr. Sandra Castano Hemoglobin (Bld) [Mass/Vol] 12.1 g/dL Normal 12.0-16.0 [facility] Comment on above: Performed By: #### C ALCULI #### [facility] [address] [place] [address] Dr. Sandra Castano IG # 0.05 10e3/ul Critically high 0.00-0.03 [facility] Comment on above: Performed By: #### C ALCULI #### [facility] [address] [place] [address] Dr. Sandra Castano IG % 0.6 % Critically high 0.0-0.5 [facility] Comment on above: Performed By: #### C ALCULI #### [facility] [address] [place] [address] Dr. Sandra Castano LYMPH # 1.0 103/ul Critically low 1.2-3.8 [facility] Comment on above: Performed By: #### C ALCULI #### [facility] [address] [place] [address] Dr. Sandra Castano Lymphocytes/100 WBC (Bld) 11.7 % Critically low 20.5-60.0 [facility] Comment on above: Performed By: #### C ALCULI #### [facility] [address] [place] [address] Dr. Sandra Castano MANUAL DIFF REQ NO Normal [facility] Comment on above: Performed By: #### C ALCULI #### [facility] [address] [place] [address] Dr. Sandra Castano MCH (RBC) [Entitic mass] 28.8 pg Normal 26.7-34.0 [facility] Comment on above: Performed By: #### C ALCULI #### [facility] [address] [address] [address] Sandra Castano MCHC (RBC) [Mass/Vol] 32.6 g/dL Normal 29.9-35.2 [facility] Comment on above: Performed By: #### C ALCULI #### [facility] [address] [address] [address] Sandra Castano MCV (RBC) [Entitic vol] 88.3 fL Normal 81.0-99.0 [facility] Comment on above: Performed By: #### C ALCULI #### [facility] [address] [address] [address] Sandra Castano MONO # 0.4 103/ul Normal 0.3-0.8 [facility] Comment on above: Performed By: #### C ALCULI #### [facility] [address] [place] [address] Dr. Sandra Castano Monocytes/100 WBC (Bld) 4.2 % Normal 1.7-12.0 [facility] Comment on above: Performed By: #### C ALCULI #### [facility] [address] [place] [address] Dr. Sandra Castano NEUT # 6.8 103/ul Critically high 1.4-6.5 [facility] Comment on above: Performed By: #### C ALCULI #### [facility] [address] [place] [address] Dr. Sandra Castano Neutrophils/100 WBC (Bld) 83.0 % Critically high 43.0-75.0 [facility] Comment on above: Performed By: #### C ALCULI #### [facility] [address] [place] [address] Dr. Sandra Castano Platelet mean volume (Bld) [Entitic vol] 11.1 fL Normal 9.5-13.5 [facility] Comment on above: Performed By: #### C ALCULI #### [facility] [address] [place] [address] Dr. Sandra Castano PLT 312 103/ul Normal 150-450 [facility] Comment on above: Performed By: #### C ALCULI #### [facility] [address] [place] [address] Dr. Sandra Castano RBC 4.20 106/ul Normal 4.20-5.40 [facility] Comment on above: Performed By: #### C ALCULI #### [facility] [address] [place] [address] Dr. Sandra Castano WBC 8.2 103/ul Normal 4.0-11.0 [facility] Comment on above: Performed By: #### C ALCULI #### [facility] [address] [place] [address] Dr. Sandra Castano CULTURE URINEon 05-27-2022 CULTURE URINE Culture Observations : LIGHT GROWTH OF MIXED GENITAL NITISH. NO POTENTIAL PATHOGENS SEEN. Normal [facility] Comment on above: Performed By: #### L IPA, CMP #### [facility] [address] [place] [address] Dr. Sandra Castano ER URINE PROFILEon Bilirubin Ql (U) Negative Normal NEGATIVE [facility] Comment on above: Performed By: #### ELAINA DUBOISICRO #### [facility] [address] [place] [address] Dr. Sandra Castano Clarity (U) CLEAR Normal CLEAR [facility] Comment on above: Performed By: #### Gillian ACEVEDO UMICRO #### [facility] [address] [place] [address] Dr. Sandra Castano Color (U) YELLOW Normal YELLOW [facility] Comment on above: Performed By: #### ELAINA DUBOISICRO #### [facility] [address] [place] [address] Dr. Sandra GORDON A micrscopic examination will be performed if indicated. Normal [facility] Comment on above: Performed By: #### FLORENCIO DUBOISRO #### [facility] [address] [place] [address] Dr. Sandra Castano Glucose Ql (U) Negative Normal NEGATIVE [facility] Comment on above: Performed By: #### FLORENCIO DUBOISRO #### [facility] [address] [place] [address] Dr. Sandra Castano Hemoglobin Ql (U) Negative Normal NEGATIVE [facility] Comment on above: Performed By: #### Gillian ACEVEDO UMICRO #### [facility] [address] [place] [address] Dr. Sandra Castano Ketones Ql (U) 40 mg/dl Abnormal NEGATIVE [facility] Comment on above: Performed By: #### Gillian ACEVEDO UMICRO #### [facility] [address] [place] [address] Dr. Sandra Castano LEUKOCYTES Negative Normal NEGATIVE [facility] Comment on above: Performed By: #### Gillian ACEVEDO UMICRO #### [facility] [address] [place] [address] Dr. Sandra Castano Nitrite Ql (U) Negative Normal NEGATIVE [facility] Comment on above: Performed By: #### Gillian ACEVEDO UMICRO #### [facility] [address] [place] [address] Dr. Sandra Castano pH (U) 5.0 [pH] Normal 5-9 [facility] Comment on above: Performed By: #### Gillian ACEVEDO UMICRO #### [facility] [address] [place] [address] Dr. Sandra Castano Protein (U) [Mass/Vol] 30 mg/dL Abnormal NEGATIVE/ TRACE [facility] Comment on above: Performed By: #### Gillian ACEVEDO UMICRO #### [facility] [address] [place] [address] Dr. Sandra Castano SPEC GRAVITY >=1.030 Abnormal 1.005-<=1.025 [facility] Comment on above: Performed By: #### Gillian ACEVEDO UMICRO #### [facility] [address] [place] [address] Dr. Sandra Castano UR MICRO IND INDICATED Normal [facility] Comment on above: Performed By: #### Gillian ACEVEDO UMICRO #### [facility] [address] [place] [address] Dr. Sandra Castano Urobilinogen Qn (U) 0.2 {Tee'U}/dL Normal 0.2 - 1.0 [facility] Comment on above: Performed By: #### E FLORENCIO ACEVEDORO #### [facility] [address] [place] [address] Dr. Sandra Castano LIPASEon 05-27-2022 Lipase [Catalytic activity/Vol] 88.0 U/L Normal 73.0-393.0 [facility] Comment on above: Performed By: #### L IPA, CMP #### [facility] [address] [place] [address] Dr. Sandra Castano URon 05-27-2022 , QUAL Negative Normal NEGATIVE [facility] Comment on above: Performed By: #### P REGU #### [facility] [address] [place] [address] Dr. Sandra Castano PROF 14(COMP METB)on 022 Albumin [Mass/Vol] 4.0 g/dL Normal 3.4-5.0 [facility] Comment on above: Performed By: #### L IPA, CMP #### [facility] [address] [place] [address] Dr. Sandra Castano Albumin/Globulin [Mass ratio] 1.0 {ratio} Normal [facility] Comment on above: Performed By: #### L IPA, CMP #### [facility] [address] [place] [address] Dr. Sandra Castano ALP [Catalytic activity/Vol] 106 U/L Normal 46-116 [facility] Comment on above: Performed By: #### L IPA, CMP #### [facility] [address] [place] [address] Dr. Sandra Castano ALT [Catalytic activity/Vol] 24 U/L Normal 14-59 [facility] Comment on above: Performed By: #### L IPA, CMP #### [facility] [address] [place] [address] Dr. Sandra Castano Anion gap [Moles/Vol] 15.2 mmol/L Normal [facility] Comment on above: Performed By: #### L IPA, CMP #### [facility] [address] [place], [place] [id number] Dr. Sandra Castano AST [Catalytic activity/Vol] 21 U/L Normal 15-37 [facility] Comment on above: Performed By: #### L IPA, CMP #### [facility] [address] [place] [address] Dr. Sandra Castano Bilirubin [Mass/Vol] 0.4 mg/dL Normal 0.2-1.0 [facility] Comment on above: Performed By: #### L IPA, CMP #### [facility] [address] [place] [address] Dr. Sandra Castano Calcium [Mass/Vol] 9.6 mg/dL Normal 8.5-10.1 [facility] Comment on above: Performed By: #### L IPA, CMP #### [facility] [address] [place] [address] Dr. Sandra Castano Chloride [Moles/Vol] 99 mmol/L Normal 98-107 [facility] Comment on above: Performed By: #### L IPA, CMP #### [facility] [address] [place] [address] Dr. Sandra Castano CO2 [Moles/Vol] 25.2 mmol/L Normal 21.0-32.0 [facility] Comment on above: Performed By: #### L IPA, CMP #### [facility] [address] [place] [address] Dr. Sandra Castano Creatinine [Mass/Vol] 0.90 mg/dL Normal 0.55-1.02 [facility] Comment on above: Performed By: #### L IPA, CMP #### [facility] [address] [place] [address] Dr. Sandra Castano EGFR-AF TUNISIAN >60 Normal >=60 [facility] Comment on above: Performed By: #### L IPA, CMP #### [facility] [address] [place] [address] Dr. Sandra Castano EGFR-NON AF TUNISIAN >60 Normal >=60 [facility] Comment on above: Performed By: #### L IPA, CMP #### [facility] [address] [place] [address] Dr. Sandra Castano Globulin (S) [Mass/Vol] 4.2 g/dL Normal [facility] Comment on above: Performed By: #### L IPA, CMP #### [facility] [address] [place] [address] Dr. Sandra Castano Glucose [Mass/Vol] 171 mg/dL Critically high 74-106 T [facility] Comment on above: Performed By: #### L IPA, CMP #### [facility] [address] [place] [address] Dr. Sandra Castano Potassium [Moles/Vol] 3.4 mmol/L Critically low 3.5-5.1 [facility] Comment on above: Performed By: #### L IPA, CMP #### [facility] [address] [place] [address] Dr. Sandra Castano Protein [Mass/Vol] 8.2 g/dL Normal 6.4-8.2 [facility] Comment on above: Performed By: #### L IPA, CMP #### [facility] [address] [place] [address] Dr. Sandra Castano Sodium [Moles/Vol] 136 mmol/L Normal 136-145 [facility] Comment on above: Performed By: #### L IPA, CMP #### [facility] [address] [place] [address] Dr. Sandra Castano Urea nitrogen [Mass/Vol] 14.0 mg/dL Normal 7.0-18.0 [facility] Comment on above: Performed By: #### L IPA, CMP #### [facility] [address] [place] [address] Dr. Sandra Castano Urea nitrogen/Creatinin e [Mass ratio] 15.6 mg/mg Normal [facility] Comment on above: Performed By: #### L IPA, CMP #### [facility] [address] [place] [address] Dr. Sandra Castano URINE MICROSCOPIC ONLYon BACTERIA MODERATE Abnormal NONE SEEN [facility] Comment on above: Performed By: #### E TAWANDA ACEVEDO #### [facility] [address] [place], [place] [id number] Dr. Sandra Castano Bacteria identified Cx Nom (U) INDICATED Normal [facility] Comment on above: Performed By: #### Gillian ACEVEDO UMICRO #### [facility] [address] [place] [address] Dr. Sandra Castano CAST NONE SEEN Normal NONE SEEN [facility] Comment on above: Performed By: #### E CURTIS UMICRO #### [facility] [address] [place] [address] Dr. Sandra Castano Crystals LM Nom (Urine sed) NONE SEEN Normal NONE SEEN [facility] Comment on above: Performed By: #### Gillian ACEVEDO UMICRO #### [facility] [address] [place] [address] Dr. Sandra Castano Epithelial cells LM Ql (Urine sed) RARE Normal NONE SEEN /RARE [facility] Comment on above: Performed By: #### Gillian ACEVEDO UMICRO #### [facility] [address] [place] [address] Dr. Sandra Castano MUCOUS TRACE Abnormal NONE SEEN [facility] Comment on above: Performed By: #### Gillian ACEVEDO UMICRO #### [facility] [address] [place] [address] Dr. Sandra Castano RBC 2-5 Abnormal 0-2 [facility] Comment on above: Performed By: #### Gillian ACEVEDO UMICRO #### [facility] [address] [place] [address] Dr. Sandra Castano WBC 2-5 Abnormal NONE SEEN [facility] Comment on above: Performed By: #### Gillian ACEVEDO UMICRO #### [facility] [address] [place] [address] Dr. Sandra Castano YEAST PRESENT Abnormal NONE SEEN [facility] Comment on above: Performed By: #### Gillian ACEVEDO UMICRO #### [facility] [address] [place] [address] Dr. Sandra Castano XR ABD FLAT UP_PA Jo 05-27 XR ABD FLAT UP_PA EXAMINATION: XR ABD FLAT UP_PA , 05/27/2022 8:33 PM EST HISTORY:CONSTIPATION, UNSPECIFIED COMPARISON:None [...] the chest and abdomen. Electronically authenticated by: MAIXMILIANO TAYLOR Date: 2022-05-27 21:17 Normal [facility] VITAMIN B1 (THIAMINE)on 05-01 Vit. B1, Whole Blood 168.7 nmol/L Normal 66.5-200.0 [facility] Comment on above: Performed By: #### C ALCULI #### [facility] [address] [place] [address] Dr. Sandra Castano CBC AUTO DIFFon 05-07-2022 BASO # 0.1 103/ul Normal 0.0-0.1 [facility] Comment on above: Performed By: #### L IPA, CMP #### [facility] [address] [place] [address] Dr. Sandra Castano Basophils/100 WBC (Bld) 0.5 % Normal 0.2-2.0 [facility] Comment on above: Performed By: #### L IPA, CMP #### [facility] [address] [place] [address] Dr. Sandra Castano EO # 0.1 103/ul Normal 0.0-0.7 [facility] Comment on above: Performed By: #### L IPA, CMP #### [facility] [address] [place] [address] Dr. Sandra Castano Eosinophils/100 WBC (Bld) 1.3 % Normal 0.9-7.0 [facility] Comment on above: Performed By: #### L IPA, CMP #### [facility] [address] [place] [address] Dr. Sandra Castano Erythrocyte distribution width (RBC) [Ratio] 12.8 % Normal 11.0-15.0 [facility] Comment on above: Performed By: #### L IPA, CMP #### [facility] [address] [place] [address] Dr. Sandra Castano Hematocrit (Bld) [Volume fraction] 37.5 % Normal 36.0-48.0 [facility] Comment on above: Performed By: #### L IPA, CMP #### [facility] [address] [place] [address] Dr. Sandra Castano Hemoglobin (Bld) [Mass/Vol] 12.1 g/dL Normal 12.0-16.0 [facility] Comment on above: Performed By: #### L IPA, CMP #### [facility] [address] [place] [address] Dr. Sandra Castano IG # 0.03 10e3/ul Normal 0.00-0.03 [facility] Comment on above: Performed By: #### L IPA, CMP #### [facility] [address] [place] [address] Dr. Sandra Castano IG % 0.3 % Normal 0.0-0.5 [facility] Comment on above: Performed By: #### L IPA, CMP #### [facility] [address] [place] [address] Dr. Sandra Castano LYMPH # 2.6 103/ul Normal 1.2-3.8 [facility] Comment on above: Performed By: #### L IPA, CMP #### [facility] [address] [place] [address] Dr. Sandra Castano Lymphocytes/100 WBC (Bld) 28.8 % Normal 20.5-60.0 [facility] Comment on above: Performed By: #### L IPA, CMP #### [facility] [address] [place] [address] Dr. Sandra Castano MANUAL DIFF REQ NO Normal [facility] Comment on above: Performed By: #### L IPA, CMP #### [facility] [address] [place] [address] Dr. Sandra Castano MCH (RBC) [Entitic mass] 29.2 pg Normal 26.7-34.0 [facility] Comment on above: Performed By: #### L IPA, CMP #### [facility] [address] [place] [address] Dr. Sandra Castano MCHC (RBC) [Mass/Vol] 32.3 g/dL Normal 29.9-35.2 [facility] Comment on above: Performed By: #### L IPA, CMP #### [facility] [address] [place] [address] Dr. Sandra Castano MCV (RBC) [Entitic vol] 90.4 fL Normal 81.0-99.0 [facility] Comment on above: Performed By: #### L IPA, CMP #### [facility] [address] [place] [address] Dr. Sandra Castano MONO # 0.5 103/ul Normal 0.3-0.8 [facility] Comment on above: Performed By: #### L IPA, CMP #### [facility] [address] [place] [address] Dr. Sandra Castano Monocytes/100 WBC (Bld) 5.4 % Normal 1.7-12.0 [facility] Comment on above: Performed By: #### L IPA, CMP #### [facility] [address] [place] [address] Dr. Sandra Castano NEUT # 5.8 103/ul Normal 1.4-6.5 [facility] Comment on above: Performed By: #### L IPA, CMP #### [facility] [address] [place] [address] Dr. Sandra Castano Neutrophils/100 WBC (Bld) 63.7 % Normal 43.0-75.0 [facility] Comment on above: Performed By: #### L IPA, CMP #### [facility] [address] [place] [address] Dr. Sandra Castano Platelet mean volume (Bld) [Entitic vol] 11.0 fL Normal 9.5-13.5 [facility] Comment on above: Performed By: #### L IPA, CMP #### [facility] [address] [address] [address] Sandra Castano PLT 370 103/ul Normal 150-450 [facility] Comment on above: Performed By: #### L IPA, CMP #### [facility] [address] [address] [address] Sandra Castano RBC 4.15 106/ul Critically low 4.20-5.40 [facility] Comment on above: Performed By: #### L IPA, CMP #### [facility] [address] [address] [address] Sandra Castano WBC 9.1 103/ul Normal 4.0-11.0 [facility] Comment on above: Performed By: #### L IPA, CMP #### [facility] [address] [place] [address] Dr. Sandra Castano FERRITINon 05-07-2022 Ferritin [Mass/Vol] 180.0 ng/mL Critically high 6.2-137.0 [facility] Comment on above: Performed By: #### L IPA, CMP #### [facility] [address] [address] [address] Sandra Castano IRON AND TIBCon 05-07-2022 % SATURATION 19.4 % Normal [facility] Comment on above: Performed By: #### L IPA, CMP #### [facility] [address] [address] [address] Sandra Castano Iron [Mass/Vol] 43.0 ug/dL Critically low 50.0-170.0 [facility] Comment on above: Performed By: #### L IPA, CMP #### [facility] [address] [address] [address] Sandra Castano TIBC DIRECT 222.0 ug/dL Critically low 250.0-450.0 [facility] Comment on above: Performed By: #### L IPA, CMP #### [facility] [address] [place] [address] Dr. Sandra Castano MAGNESIUMon 05-07-2022 Magnesium [Mass/Vol] 1.8 mg/dL Normal 1.8-2.4 [facility] Comment on above: Performed By: #### M G, CMP, PHOS #### [facility] [address] [address] [address] Sandra Castano PHOSPHORUSon 05-07-2022 Phosphate [Mass/Vol] 4.4 mg/dL Normal 2.6-4.7 [facility] Comment on above: Performed By: #### M G, CMP, PHOS #### [facility] [address] [place] [address] Dr. Sandra Castano PROF 14(COMP METB)on 022 Albumin [Mass/Vol] 3.6 g/dL Normal 3.4-5.0 [facility] Comment on above: Performed By: #### M G, CMP, PHOS #### [facility] [address] [place] [address] Dr. Sandra Castano Albumin/Globulin [Mass ratio] 0.9 {ratio} Normal [facility] Comment on above: Performed By: #### M G, CMP, PHOS #### [facility] [address] [place] [address] Dr. Sandra Castano ALP [Catalytic activity/Vol] 106 U/L Normal 46-116 [facility] Comment on above: Performed By: #### M G, CMP, PHOS #### [facility] [address] [place] [address] Dr. Sandra Castano ALT [Catalytic activity/Vol] 61 U/L Critically high 14-59 [facility] Comment on above: Performed By: #### M G, CMP, PHOS #### [facility] [address] [place] [address] Dr. Sandra Castano Anion gap [Moles/Vol] 12.2 mmol/L Normal [facility] Comment on above: Performed By: #### M G, CMP, PHOS #### [facility] [address] [place] [address] Dr. Sandra Castano AST [Catalytic activity/Vol] 35 U/L Normal 15-37 [facility] Comment on above: Performed By: #### M G, CMP, PHOS #### [facility] [address] [address] [address] Sandra Castano Bilirubin [Mass/Vol] 0.5 mg/dL Normal 0.2-1.0 [facility] Comment on above: Performed By: #### M G, CMP, PHOS #### [facility] [address] [address] [address] Sandra Castano Calcium [Mass/Vol] 9.7 mg/dL Normal 8.5-10.1 [facility] Comment on above: Performed By: #### M G, CMP, PHOS #### [facility] [address] [address] [address] Sandra Castano Chloride [Moles/Vol] 101 mmol/L Normal 98-107 [facility] Comment on above: Performed By: #### M G, CMP, PHOS #### [facility] [address] [place] [address] Dr. Sandra Castano CO2 [Moles/Vol] 30.9 mmol/L Normal 21.0-32.0 [facility] Comment on above: Performed By: #### M G, CMP, PHOS #### [facility] [address] [address] [address] Sandra Castano Creatinine [Mass/Vol] 0.74 mg/dL Normal 0.55-1.02 [facility] Comment on above: Performed By: #### M G, CMP, PHOS #### [facility] [address] [address] [address] Sandra Castano EGFR-AF TUNISIAN >60 Normal >=60 [facility] Comment on above: Performed By: #### M G, CMP, PHOS #### [facility] [address] [place] [address] Dr. Sandra Castano EGFR-NON AF TUNISIAN >60 Normal >=60 [facility] Comment on above: Performed By: #### M G, CMP, PHOS #### [facility] [address] [address] [address] Sandra Castano Globulin (S) [Mass/Vol] 3.9 g/dL Normal [facility] Comment on above: Performed By: #### M G, CMP, PHOS #### [facility] [address] [place] [address] Dr. Sandra Castano Glucose [Mass/Vol] 98 mg/dL Normal 74-106 [facility] Comment on above: Performed By: #### M G, CMP, PHOS #### [facility] [address] [place] [address] Dr. Sandra Castano Potassium [Moles/Vol] 4.1 mmol/L Normal 3.5-5.1 [facility] Comment on above: Performed By: #### M G, CMP, PHOS #### [facility] [address] [place] [address] Dr. Sadnra Castano Protein [Mass/Vol] 7.5 g/dL Normal 6.4-8.2 [facility] Comment on above: Performed By: #### M G, CMP, PHOS #### [facility] [address] [place] [address] Dr. Sandra Castano Sodium [Moles/Vol] 140 mmol/L Normal 136-145 [facility] Comment on above: Performed By: #### M G, CMP, PHOS #### [facility] [address] [place] [address] Dr. Sandra Castano Urea nitrogen [Mass/Vol] 7.0 mg/dL Normal 7.0-18.0 [facility] Comment on above: Performed By: #### M G, CMP, PHOS #### [facility] [address] [place] [address] Dr. Sandra Castano Urea nitrogen/Creatinin e [Mass ratio] 9.5 mg/mg Normal [facility] Comment on above: Performed By: #### M G, CMP, PHOS #### [facility] [address] [place] [address] Dr. Sandra Castano VIT B12 AND FOLATEon 022 Cobalamin (Vitamin B12) [Mass/Vol] 1075.0 pg/mL Critically high 193.0-986.0 [facility] Comment on above: Performed By: #### L IPA, CMP #### [facility] [address] [address] [address] Sandra Castano FOLATE 9.80 ng/mL Normal 8.60-58.90 [facility] Comment on above: Performed By: #### L IPA, CMP #### [facility] [address] [place] [address] Dr. Sandra Castano VITAMIN D 25 OHon 05-07-2022 VIT D 25-OH 96.8 ng/mL Normal [facility] Comment on above: Performed By: #### L IPA, CMP #### [facility] [address] [address] [address] Sandra Castano VIT D RANGES SEE BELOW Normal [facility] Comment on above: Result Comment: <20 ng/mL Vit D deficient 20 - <30 ng/mL Vit D insufficient 30 - 100 ng/mL Vit D sufficient >100 ng/mL Potential Toxicity Performed By: #### L IPA, CMP #### [facility] [address] [place] [address] Dr. Sandra Castano BLOOD BANKOrdered By: Latrice Lopez on 03-24-2022 ABO/Rh Interp AB NEG Invalid Interpretation Code [facility] BB Subsection ABSC Gel Interp Negative (03/24/22 8:33 AM) Normal [facility] BB Subsection VITAMIN B1 (THIAMINE)on 12-30 Vit. B1, Whole Blood 154.0 nmol/L Normal 66.5-200.0 [facility] Comment on above: Performed By: #### V ITB1T #### [facility] [address] [place] [address] Dr. Sandra Castano VIT D 25-OH [facility] 2021 Vitamin D, 25-Hydroxy 98.0 ng/mL Normal 30.0-100.0 [facility] Comment on above: Result Comment: Wanda min D deficiency has been defined by the [employer] of [employer] and an Endocrine Society practice guideline as a level of serum 25-OH vitamin D less than 20 ng/mL (1,2). The Endocrine Society went on to further define vitamin D insufficiency as a level between 21 and 29 ng/mL (2). 1. IOM ([employer] of [employer]). 2010. Dietary reference intakes for calcium and D. [place]: The National Academies Press. 2. [place] MF, Maya NC, Kesha OLGUIN, et al. Evaluation, treatment, and prevention of vitamin D deficiency: an Endocrine Society clinical practice guideline. JCEM. 2010; 96(7):1911-30. Performed By: #### L IPA, CMP #### [facility] [address] [place] [address] Dr. Sandra Castano CBC AUTO DIFFon 01-13-2022 BASO # 0.0 103/ul Normal 0.0-0.1 [facility] Comment on above: Performed By: #### L IPA, CMP #### [facility] [address] [place] [address] Dr. Sandra Castano Basophils/100 WBC (Bld) 0.5 % Normal 0.2-2.0 [facility] Comment on above: Performed By: #### L IPA, CMP #### [facility] [address] [place] [address] Dr. Sandra Castano EO # 0.1 103/ul Normal 0.0-0.7 [facility] Comment on above: Performed By: #### L IPA, CMP #### [facility] [address] [place] [address] Dr. Sandra Castano Eosinophils/100 WBC (Bld) 2.0 % Normal 0.9-7.0 [facility] Comment on above: Performed By: #### L IPA, CMP #### [facility] [address] [place] [address] Dr. Sandra Castano Erythrocyte distribution width (RBC) [Ratio] 13.7 % Normal 11.0-15.0 [facility] Comment on above: Performed By: #### L IPA, CMP #### [facility] [address] [place] [address] Dr. Sandra Castano Hematocrit (Bld) [Volume fraction] 39.9 % Normal 36.0-48.0 [facility] Comment on above: Performed By: #### L IPA, CMP #### [facility] [address] [place] [address] Dr. Sandra Castano Hemoglobin (Bld) [Mass/Vol] 13.0 g/dL Normal 12.0-16.0 [facility] Comment on above: Performed By: #### L IPA, CMP #### [facility] [address] [place] [address] Dr. Sandra Castano IG # 0.02 10e3/ul Normal 0.00-0.03 [facility] Comment on above: Performed By: #### L IPA, CMP #### [facility] [address] [place] [address] Dr. Sandra Castano IG % 0.3 % Normal 0.0-0.5 [facility] Comment on above: Performed By: #### L IPA, CMP #### [facility] [address] [place] [address] Dr. Sandra Castano LYMPH # 1.6 103/ul Normal 1.2-3.8 [facility] Comment on above: Performed By: #### L IPA, CMP #### [facility] [address] [place] [address] Dr. Sandra Castano Lymphocytes/100 WBC (Bld) 27.5 % Normal 20.5-60.0 [facility] Comment on above: Performed By: #### L IPA, CMP #### [facility] [address] [place] [address] Dr. Sandra Castano MANUAL DIFF REQ NO Normal [facility] Comment on above: Performed By: #### L IPA, CMP #### [facility] [address] [place] [address] Dr. Sandra Castano MCH (RBC) [Entitic mass] 29.2 pg Normal 26.7-34.0 [facility] Comment on above: Performed By: #### L IPA, CMP #### [facility] [address] [place] [address] Dr. Sandra Castano MCHC (RBC) [Mass/Vol] 32.6 g/dL Normal 29.9-35.2 [facility] Comment on above: Performed By: #### L IPA, CMP #### [facility] [address] [place] [address] Dr. Sandra Castano MCV (RBC) [Entitic vol] 89.7 fL Normal 81.0-99.0 [facility] Comment on above: Performed By: #### L IPA, CMP #### [facility] [address] [place] [address] Dr. Sandra Castano MONO # 0.4 103/ul Normal 0.3-0.8 [facility] Comment on above: Performed By: #### L IPA, CMP #### [facility] [address] [place] [address] Dr. Sandra Castano Monocytes/100 WBC (Bld) 6.6 % Normal 1.7-12.0 [facility] Comment on above: Performed By: #### L IPA, CMP #### [facility] [address] [place] [address] Dr. Sandra Castano NEUT # 3.7 103/ul Normal 1.4-6.5 [facility] Comment on above: Performed By: #### L IPA, CMP #### [facility] [address] [place] [address] Dr. Sandra Castano Neutrophils/100 WBC (Bld) 63.1 % Normal 43.0-75.0 [facility] Comment on above: Performed By: #### L IPA, CMP #### [facility] [address] [place] [address] Dr. Sandra Castano Platelet mean volume (Bld) [Entitic vol] 11.6 fL Normal 9.5-13.5 [facility] Comment on above: Performed By: #### L IPA, CMP #### [facility] [address] [place] [address] Dr. Sandra Castano PLT 256 103/ul Normal 150-450 [facility] Comment on above: Performed By: #### L IPA, CMP #### [facility] [address] [place] [address] Dr. Sandra Castano RBC 4.45 106/ul Normal 4.20-5.40 [facility] Comment on above: Performed By: #### L IPA, CMP #### [facility] [address] [place] [address] Dr. Sandra Castano WBC 5.9 103/ul Normal 4.0-11.0 [facility] Comment on above: Performed By: #### L IPA, CMP #### [facility] [address] [place] [address] Dr. Sandra Castano FERRITINon 01-13-2022 Ferritin [Mass/Vol] 108.0 ng/mL Normal 6.2-137.0 [facility] Comment on above: Performed By: #### C ALCULI #### [facility] [address] [place] [address] Dr. Sandra Castano IRON AND TIBCon 01-13-2022 % SATURATION 20.6 % Normal [facility] Comment on above: Performed By: #### C ALCULI #### [facility] [address] [place] [address] Dr. Sandra Castano Iron [Mass/Vol] 47.0 ug/dL Critically low 50.0-170.0 [facility] Comment on above: Performed By: #### C ALCULI #### [facility] [address] [place] [address] Dr. Sandra Castano TIBC DIRECT 228.0 ug/dL Critically low 250.0-450.0 [facility] Comment on above: Performed By: #### C ALCULI #### [facility] [address] [place] [address] Dr. Sandra Castano MAGNESIUMon 01-13-2022 Magnesium [Mass/Vol] 1.7 mg/dL Critically low 1.8-2.4 [facility] Comment on above: Performed By: #### C ALCULI #### [facility] [address] [place] [address] Dr. Sandra Castano PHOSPHORUSon 01-13-2022 Phosphate [Mass/Vol] 3.4 mg/dL Normal 2.6-4.7 [facility] Comment on above: Performed By: #### L IPA, CMP #### [facility] [address] [place] [address] Dr. Sandra Castano PROF 14(COMP METB)on 022 Albumin [Mass/Vol] 3.8 g/dL Normal 3.4-5.0 [facility] Comment on above: Performed By: #### C ALCULI #### [facility] [address] [address] [address] Sandra Castano Albumin/Globulin [Mass ratio] 1.1 {ratio} Normal [facility] Comment on above: Performed By: #### C ALCULI #### [facility] [address] [address] [address] aSndra Castano ALP [Catalytic activity/Vol] 78 U/L Normal 46-116 [facility] Comment on above: Performed By: #### C ALCULI #### [facility] [address] [place] [address] Dr. Sandra Castano ALT [Catalytic activity/Vol] 34 U/L Normal 14-59 [facility] Comment on above: Performed By: #### C ALCULI #### [facility] [address] [place] [address] Dr. Sandra Castano Anion gap [Moles/Vol] 10.8 mmol/L Normal [facility] Comment on above: Performed By: #### C ALCULI #### [facility] [address] [place] [address] Dr. Sandra Castano AST [Catalytic activity/Vol] 20 U/L Normal 15-37 [facility] Comment on above: Performed By: #### C ALCULI #### [facility] [address] [place] [address] Dr. Sandra Castano Bilirubin [Mass/Vol] 0.5 mg/dL Normal 0.2-1.0 [facility] Comment on above: Performed By: #### C ALCULI #### [facility] [address] [place] [address] Dr. Sandra Castano Calcium [Mass/Vol] 9.2 mg/dL Normal 8.5-10.1 [facility] Comment on above: Performed By: #### C ALCULI #### [facility] [address] [place] [address] Dr. Sandra Castano Chloride [Moles/Vol] 102 mmol/L Normal 98-107 [facility] Comment on above: Performed By: #### C ALCULI #### [facility] [address] [address] [address] Sandra Castano CO2 [Moles/Vol] 31.2 mmol/L Normal 21.0-32.0 [facility] Comment on above: Performed By: #### C ALCULI #### [facility] [address] [address] [address] Sandra Castano Creatinine [Mass/Vol] 0.78 mg/dL Normal 0.55-1.02 [facility] Comment on above: Performed By: #### C ALCULI #### [facility] [address] [place] [address] Dr. Sandra Castano EGFR-AF TUNISIAN >60 Normal >=60 [facility] Comment on above: Performed By: #### C ALCULI #### [facility] [address] [place] [address] Dr. Sandra Castano EGFR-NON AF TUNISIAN >60 Normal >=60 [facility] Comment on above: Performed By: #### C ALCULI #### [facility] [address] [place] [address] Dr. Sandra Castano Globulin (S) [Mass/Vol] 3.6 g/dL Normal [facility] Comment on above: Performed By: #### C ALCULI #### [facility] [address] [place] [address] Dr. Sandra Castano Glucose [Mass/Vol] 101 mg/dL Normal 74-106 [facility] Comment on above: Performed By: #### C ALCULI #### [facility] [address] [place] [address] Dr. Sandra Castano Potassium [Moles/Vol] 4.0 mmol/L Normal 3.5-5.1 [facility] Comment on above: Performed By: #### C ALCULI #### [facility] [address] [place] [address] Dr. Sandra Castano Protein [Mass/Vol] 7.4 g/dL Normal 6.4-8.2 [facility] Comment on above: Performed By: #### C ALCULI #### [facility] [address] [address] [address] Sandra Castano Sodium [Moles/Vol] 140 mmol/L Normal 136-145 [facility] Comment on above: Performed By: #### C ALCULI #### [facility] [address] [address] [address] Sandra Castano Urea nitrogen [Mass/Vol] 14.0 mg/dL Normal 7.0-18.0 [facility] Comment on above: Performed By: #### C ALCULI #### [facility] [address] [address] [address] Sandra Castano Urea nitrogen/Creatinin e [Mass ratio] 17.9 mg/mg Normal [facility] Comment on above: Performed By: #### C ALCULI #### [facility] [address] [place] [address] Dr. Sandra Castano VIT B12 AND FOLATEon 022 Cobalamin (Vitamin B12) [Mass/Vol] 1475.0 pg/mL Critically high 193.0-986.0 [facility] Comment on above: Performed By: #### C ALCULI #### [facility] [address] [place] [address] Dr. Sandra Castano FOLATE 11.80 ng/mL Normal 8.60-58.90 [facility] Comment on above: Performed By: #### C ALCULI #### [facility] [address] [place] [address] Dr. Sandra Castano MG MAMM SCREEN 3D PENG CADon 12-03-2021 MG MAMM SCREEN 3D PENG CAD Patient: ELIDA CALVILLO Exam Date: 12/03/2021 : 1975 Gender:F Ordering : DR LUDY LAINEZ . Admission #: [id number] Family : Order #: [id number] CLICK HERE TO VIEW EXAM RADIOLOGY REPORT [...] colon cancer at age 67. LOCATION: [facility] BREAST COMPOSITION: Scattered areas fibroglandular [...] M.D. on 12/03/2021 at 12:49 Normal [facility] LOWER EXTREMITY JOINT SURVEY on 02-19-2021 LOWER EXTREMITY JOINT SURVEY [facility] Department of Radiology [address] [place] [id number] ===== Patient Name: ELIDA CALVILLO : 1975 Sex: F Age: Race: White Pt. 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 Electronically signed: Dylon Duenas. Transcribed by: [email or web address], User Resident: Electronically Signed by: YDLON DUENAS @ 02/20/2021 12:06 PM Normal [facility] Comment on above: Order Comment: Evalu ate Vital Signs Date Time Vital Sign Value Performing Clinician Facility 07-06-2024 08:58-0500 Blood Pressure Location Romi [employer] [facility] 07-06-2024 08:58-0500 Diastolic blood pressure 75 mm[Hg] Romi Lue [facility] 07-06-2024 08:58-0500 Heart rate 67 /min Romi Lue [facility] 07-06-2024 08:58-0500 Respiratory rate 18 /min Romi Lue [facility] 07-06-2024 08:58-0500 Systolic blood pressure 139 mm[Hg] Romi Lue [facility] 03-17-2024 08:39-0400 Body height 165.1 cm Suhas Sterling DO Work Phone: [facility] 03-17-2024 08:39-0400 Body mass index (BMI) [Ratio] 23.63 kg/m2 Suhas Sterling DO Work Phone: [facility] 03-17-2024 08:39-0400 Body temperature 97.39 [degF] Suhas Ismael DO Work Phone: [facility] 03-17-2024 08:39-0400 Body weight 64.41 kg Suhas Sterling DO Work Phone: [facility] 03-09-2024 09:32-0400 Blood Pressure Location Romi Lue [facility] 03-09-2024 09:32-0400 Diastolic blood pressure 80 mm[Hg] Romi Lue [facility] 03-09-2024 09:32-0400 Heart rate 76 /min Romi Lue [facility] 03-09-2024 09:32-0400 Systolic blood pressure 134 mm[Hg] Romi Lue [facility] 2023 09:02-0400 Blood Pressure Location Romi Lue [facility] 2023 09:02-0400 Diastolic blood pressure 82 mm[Hg] Romi Lue [facility] 2023 09:02-0400 Heart rate 77 /min Romi Lue [facility] 2023 09:02-0400 Respiratory rate 16 /min Romi Lue [facility] 2023 09:02-0400 Systolic blood pressure 135 mm[Hg] Romi Lue [facility] 06-10-2023 09:20-0500 Diastolic blood pressure 80 mm[Hg] Romi Lue [facility] 06-10-2023 09:20-0500 Mean blood pressure 101 mm[Hg] Romi Lue [facility] 06-10-2023 09:20-0500 Systolic blood pressure 142 mm[Hg] Romi Lue [facility] 06-10-2023 09:06-0500 Blood Pressure Location Romi Lue [facility] 06-10-2023 09:06-0500 Diastolic blood pressure 86 mm[Hg] Romi Lue [facility] 06-10-2023 09:06-0500 Heart rate 71 /min Romi Lue [facility] 06-10-2023 09:06-0500 Systolic blood pressure 144 mm[Hg] Romi Lue [facility] 09-04-2022 08:32-0400 Blood Pressure Location Romi Lue [facility] 09-04-2022 08:32-0400 Diastolic blood pressure 82 mm[Hg] Romi Lue [facility] [facility] 09-04-2022 08:32-0400 Heart rate 57 /min Romi Lue [facility] 09-04-2022 08:32-0400 Respiratory rate 16 /min Romi Lue [facility] 09-04-2022 08:32-0400 Systolic blood pressure 138 mm[Hg] Romi Lue [facility] 07-02-2022 09:14-0500 Blood Pressure Location Romi Lue [facility] 07-02-2022 09:14-0500 Diastolic blood pressure 78 mm[Hg] Romi Lue [facility] 07-02-2022 09:14-0500 Heart rate 68 /min Romi Lue [facility] 07-02-2022 09:14-0500 Respiratory rate 16 /min Romi Lue [facility] 07-02-2022 09:14-0500 Systolic blood pressure 124 mm[Hg] Romi Lue [facility] 03-24-2022 16:38-0400 Blood Pressure Location Suhas Sterling [facility] 03-24-2022 16:38-0400 Diastolic blood pressure 78 mm[Hg] Suhas Sterling [facility] 03-24-2022 16:38-0400 Heart rate 61 /min Suhas Sterling [facility] 03-24-2022 16:38-0400 Mean blood pressure 95 mm[Hg] Suhas Sterling [facility] 03-24-2022 16:38-0400 Respiratory rate 18 /min Suhas Ismael [facility] 03-24-2022 16:38-0400 SaO2% (BldA) [Mass fraction] 98 % Suhas Ismael [facility] 03-24-2022 16:38-0400 Systolic blood pressure 131 mm[Hg] Suhas Sterling [facility] 03-24-2022 15:16-0400 Blood Pressure Location Suhas Sterling [facility] 03-24-2022 15:16-0400 Diastolic blood pressure 75 mm[Hg] Suhas Sterling [facility] 03-24-2022 15:16-0400 Heart rate 66 /min Suhas Sterling [facility] 03-24-2022 15:16-0400 Mean blood pressure 96 mm[Hg] Suhas Ismael [facility] 03-24-2022 15:16-0400 Respiratory rate 18 /min Suhas Ismael [facility] 03-24-2022 15:16-0400 SaO2% (BldA) [Mass fraction] 98 % Suhas Ismael [facility] 03-24-2022 15:16-0400 Systolic blood pressure 138 mm[Hg] Suhas Sterling [facility] 03-24-2022 13:37-0400 Blood Pressure Location Suhas Sterling [facility] 03-24-2022 13:37-0400 Diastolic blood pressure 74 mm[Hg] Suhas Sterling [facility] 03-24-2022 13:37-0400 Heart rate 65 /min Suhas Sterling [facility] 03-24-2022 13:37-0400 Mean blood pressure 106 mm[Hg] Suhas Ismael [facility] 03-24-2022 13:37-0400 Respiratory rate 18 /min Suhas Ismael [facility] 03-24-2022 13:37-0400 SaO2% (BldA) [Mass fraction] 100 % Suhas Sterling [facility] 03-24-2022 13:37-0400 Systolic blood pressure 171 mm[Hg] Suhas Sterling [facility] 03-24-2022 13:30-0400 Body temperature 98.24 [degF] Suhas Sterling [facility] 03-24-2022 13:30-0400 Respiratory rate 10 /min Suhas Sterling [facility] 03-24-2022 13:15-0400 Respiratory rate 11 /min Suhas Sterling [facility] 03-24-2022 13:00-0400 Respiratory rate 13 /min Suhas Sterling [facility] 03-24-2022 12:30-0400 Body temperature 98.06 [degF] Suhas Sterling [facility] 03-24-2022 08:21-0400 Body temperature 97.7 [degF] Suhas Sterling [facility] 03-24-2022 08:21-0400 Heart rate 72 /min Suhas Sterling [facility] Encounters Encounter Date Encounter Type Care Provider Facility Start: 01-17-2026 ambulatory Romi Sarmiento [facility] Start: 01-11-2025 End: 01-11-2025 ambulatory Romi Sarmiento Facility:[facility] Start: 01-11-2025 End: 01-11-2025 Patient encounter procedure Romi Sarmiento [facility] Start: 01-04-2025 End: 01-04-2025 ambulatory Romi Sarmiento Facility:[facility] Start: 11-28-2024 End: 11-28-2024 ambulatory RADIOLOGICAL EQUIPMENT SPECIALIST Radha L Felipa Facility:[facility] Start: 11-28-2024 End: 11-28-2024 Lab Drop off Radha L Felipa [facility] Start: 11-28-2024 End: 11-28-2024 ambulatory RADIOLOGICAL EQUIPMENT SPECIALIST Radha L Felipa Facility:[facility] Start: 07-06-2024 End: 07-06-2024 ambulatory Romi Sarmiento Facility:[facility] Start: 07-06-2024 End: 07-06-2024 Patient encounter procedure Romi Sarmiento [facility] Start: 06-25-2024 End: 06-25-2024 ambulatory Radha Maribeth Felipa Facility:[facility] Start: 03-17-2024 End: 03-17-2024 Bamboo flowsheet Suhas Sterling DO Work Phone: [facility] Start: 03-17-2024 End: 03-17-2024 Bamboo flowsheet Suhas Sterling DO Work Phone: [facility] Start: 03-17-2024 End: 03-17-2024 Patient encounter procedure Suhas Sterling DO Work Phone: [facility] Comment on above: History of total rig ht knee replacement (Primary Dx) Start: 03-17-2024 End: 03-17-2024 ambulatory SUHAS STERLING Not Available Start: 03-09-2024 End: 03-09-2024 ambulatory Romi Sarmiento Facility:[facility] Start: 03-09-2024 End: 03-09-2024 Patient encounter procedure Romi Sarmiento [facility] Start: 01-13-2024 End: 01-13-2024 ambulatory Romi JorgeClaritza Tapiagillian Facility:[id number] Start: 01-13-2024 End: 01-13-2024 Off-Site Romi MClaritza Tapiagillian [facility] Start: 2023 End: 2023 ambulatory [facility] JorgeClaritza Tapiae [facility] Start: 2023 End: 2023 Patient encounter procedure Romi JorgeClaritza Sarmiento [facility] Start: 11-19-2023 End: 11-19-2023 ambulatory MARSHALL LYON Not Available Start: 10-27-2023 End: 10-27-2023 Lab Drop off Radha L Felipa [facility] Start: 10-27-2023 End: 10-27-2023 ambulatory Radha L Felipa Facility:[facility] Start: 10-14-2023 End: 10-14-2023 ambulatory Radha L Felipa Facility:[facility] Start: 09-11-2023 End: 09-11-2023 ambulatory Radha L Felipa Facility:[facility] Start: 06-10-2023 End: 06-10-2023 Patient encounter procedure Romi Sinclair Maydagillian [facility] Start: 10-24-2022 End: 10-24-2022 Lab Drop off Radha L Felipa [facility] Start: 09-04-2022 End: 09-05-2022 ambulatory ROMI M LUE . Facility:[facility] Start: 09-04-2022 End: 09-04-2022 Patient encounter procedure Romi Tapiae [facility] Start: 08-30-2022 End: 08-31-2022 ambulatory ROMI SARMIENTO . Facility:[facility] Start: 07-30-2022 End: 07-30-2022 ambulatory ROMI TAPIAE . Facility:[facility] Start: 07-24-2022 Encounter for preprocedural laboratory examination ROMI SARMIENTO . [facility] Start: 07-18-2022 End: 07-19-2022 ambulatory ERICK KRAFT Facility:[facility] Start: 07-18-2022 End: 07-19-2022 Encounter for preprocedural laboratory examination ERICK KRAFT Facility:[facility] Start: 07-10-2022 End: 07-11-[address] ETTA CEDEÑO Facility:[facility] Start: 07-02-2022 End: 07-02-2022 Patient encounter procedure Romi Sarmiento [facility] Start: 06-30-2022 End: 07-01-[address] ETTA CEDEÑO Facility:[facility] Start: 06-13-2022 End: 06-13-2022 Patient encounter procedure Romi Sarmiento [facility] Wendy Start: 06-06-2022 End: 06-07-[address] ETTA CEDEÑO Facility:[facility] Start: 05-27-2022 End: 05-28-[address] CARLOS A Jerry Facility:[facility] Start: 05-07-2022 End: 05-08-[address] DOCTOR PALACIOS Facility:[facility] Start: 03-24-2022 End: 03-24-2022 Admission to same day surgery center Suhas Sterling [facility] Start: 01-13-2022 End: 01-14-2022 ambulatory MRAY SOTO Facility:[facility] Start: 12-03-2021 End: 12-04-[address] LUDY LAINEZ . Facility:[facility] Procedures Date Procedure Procedure Detail Performing Clinician Start: 03-17-2024 Radiologic examinati on knee 3 views Suhas Sterling DO Work Phone: Start: 07-30-2022 Lipoatrophy (disorder) Radha Leo Start: 06-01-1992 History of operative procedure on knee Suhas Sterling Esophagogastrostomy, antesternal or antethoracic Suhas Sterling Extraction of wisdom tooth M nohemy Ismael H/O: tubal ligation Suhas Sterling Hand tendon operation Rosie Sterling Plan of Treatment Date Care Activity Detail Author Start: 03-21-2025 End: 03-21-2025 Patient encounter procedure 03/21/2025 9:30 AM EDT Office Visit [facility] [address] [place] [address] Suhas Sterling, DO [address] [place] [address] [facility] Start: 03-17-2024 End: 03-17-2024 Patient encounter procedure 03/17/2024 8:30 AM EDT Office Visit [facility] [address] [place] [id number] Suhas Sterling, DO [address] [place] [address] History of total right knee replacement (Primary Dx) [facility] Comment on above: History of total rig ht knee replacement (Primary Dx) Start: 2014 Screening for malign ant neoplasm of breast Mammogram [facility] Start: 2004 Screening for malign ant neoplasm of cervix [facility] Start: 12-03-1995 Screening for malign ant neoplasm of cervix Pap Smear [facility] Start: 1974 Screening for malign ant neoplasm of colon [facility] Immunizations Immunization Date Immunization Notes Care Provider Kari colindres 02-10-2024 influenza virus vaccine, unspecified formulation Romi Lue [facility] 03-17-2023 influenza virus vaccine, unspecified formulation Romi Lue [facility] 03-06-2023 influenza virus vaccine, unspecified formulation Romi Lue [facility] 04-28-2022 influenza virus vaccine, unspecified formulation Romi Lue [facility] 04-28-2022 SARS-CoV-2 (COVID-19 ) [id number] Romi Lue [facility] 05-21-2021 SARS-CoV-2 (COVID-19 ) mRNA BNT-162b2 vax Romi Lue [facility] 03-08-2021 influenza virus vaccine, unspecified formulation Romi Lue [facility] 09-20-2020 SARS-CoV-2 (COVID-19 ) mRNA BNT-162b2 vax Romi Lue [facility] 08-30-2020 SARS-CoV-2 (COVID-19 ) mRNA BNT-162b2 vax Romi Lue [facility] 02-08-2020 influenza virus vaccine, unspecified formulation Romi Lue [facility] 02-15-2019 influenza virus vaccine, unspecified formulation Romi Lue [facility] 01-29-2019 influenza virus vaccine, unspecified formulation Romi Lue [facility] 03-06-2018 influenza virus vaccine, unspecified formulation Romi Lue [facility] 02-26-2015 influenza virus vaccine, unspecified formulation Romi Lue [facility] 02-25-2014 influenza virus vaccine, unspecified formulation Romi Lue [facility] 04-24-2013 influenza virus vaccine, unspecified formulation Romi Lue [facility] Payers Date Payer Category Payer Self-pay [id number] 2022 Private Health Insurance [id number] 1974 Unknown [id number] 2.16.84 0.1.110793.3.579.2.593 1974 Unknown [id number] 2.16.84 0.1.425316.3.579.2.593 1974 Unknown [id number] 2.16.84 0.1.400997.3.579.2.593 1974 Unknown [id number] 2.16.84 0.1.447651.3.579.2.593 1974 Unknown [id number] 2.16.84 0.1.933174.3.579.2.593 1974 Unknown [id number] 2.16.84 0.1.449109.3.579.2.593 1974 Unknown [id number] 2.16.84 0.1.927100.3.579.2.593 1974 Unknown [id number] 2.16.84 0.1.642335.3.579.2.593 1974 Unknown [id number] 2.16.84 0.1.720539.3.579.2.593 1974 Unknown [id number] 2.16.84 0.1.705814.3.579.2.593 1974 Unknown [id number] 2.16.84 0.1.218438.3.579.2.593 1974 Unknown [id number] 2.16.84 0.1.814089.3.579.2.1259 1974 Unknown [id number] 2.16.84 0.1.191558.3.579.2.1259 1974 Unknown [id number] 2.16.84 0.1.273348.3.579.2.1259 1974 Unknown [id number] 2.16.8 40.1.685919.3.579.2.727 1974 Unknown [id number] 2.16.8 40.1.480941.3.579.2.727 1974 Unknown [id number] 2.16.8 40.1.073353.3.579.2.727 1974 Unknown [id number] 2.16.8 40.1.088289.3.579.2.727 1974 Unknown [id number] 2.16.8 40.1.588931.3.579.2.72 1974 Unknown [id number] 2.16.8 40.1.078014.3.579.2.727 1974 Unknown [id number] 2.16.8 40.1.319532.3.579.2.727 1974 Unknown [id number] 2.16.8 40.1.520285.3.579.2.727 1974 Unknown [id number] 2.16.8 40.1.149876.3.579.2.7 1974 Unknown [id number] 2.16.8 40.1.777694.3.579.2.72 1974 Unknown [id number] 2.16.8 40.1.248873.3.579.2. 1974 Unknown [id number] 2.16.8 40.1.012975.3.579.2.72 1974 Unknown [id number] 2.16.8 40.1.677483.3.579.2.727 1959 Unknown [id number] 1959 Unknown [id number] Unknown [id number] 2.16.8 40.1.212474.3.579.2.531 Social History Date Type Detail Facility [facility] Start: 1975 Sex Assigned At Female [facility] Tobacco smoking status [facility] Start: 11-19-2023 End: 03-17-2024 Sex Assigned At Female [facility] Start: 06-13-2022 End: 11-28-2024 Tobacco smoking status Never smoked tobacco (finding) [facility] Tobacco smoking status Never [facility] Start: 03-19-2023 Tobacco use and exposure Smokeless tobacco non-user [facility] Start: 11-19-2023 End: 03-17-2024 Alcoholic beverage intake Lifetime non-drinker (finding) [facility] Start: 11-19-2023 End: 03-17-2024 History of Social function [facility] Start: 03-12-2023 Gender identity Identifies as female gender (finding) [facility] Start: 03-12-2023 Sexual orientation Heterosexual (finding) [facility] Start: 02-13-2022 Sex Female (finding) [facility] Medical Equipment Procedure Code Equipment Code [...] plate FDA Start: 09-18-2017 KNEE TOTAL ARTHROPLASTY Suhas Sterling DO 03/24/22 Non Biological Knee R {[id number] {[id number]} [id number] FDA Start: 03-24-2022 Goals Date Patient Goal Desired Activity /State Functional Status Date Assessment Result Facility 07-06-2024 Functional Status N/A [facility] 03-09-2024 Functional Status N/A [facility] 2023 Functional Status N/A [facility] 06-10-2023 Functional Status N/A [facility] 09-04-2022 Functional Status N/A [facility] [place] 07-02-2022 Functional Status N/A [facility] 06-13-2022 Functional Status N/A [facility] Clinical Notes 03-24-2022 to 01-11-2025 Suhas Sterling DO - 03/17/2024 8:30 AM EDT Note Date & Type Note Facility 01-11-2025 Hospital Discharg e instructions Patient Education 01/11/2025 08:20:55 Dietary Guidelines to [...] include: ?8 oz (237 mL) of milk, zaiyngg-pslvnsyfefll-xwkgj milk, and calcium-fortifiedfruit juice. Calcium-fortified means that [...] ?Spinach (cooked), rhubarb, beets, sweet potatoes, and Romanian chard. ?Peanuts. ?Potato chips, burkinan fries, and baked potatoes with skin on. ?Nuts and nut products. ?Chocolate. If you regularly take a diuretic medicine, make sure to eat at least 1 or 2 servings of fruits or vegetables that are high in potassium each day. These include: ?Avocado. ?Banana. ?Sanibel, prune, carrot, or tomato juice. ?Baked potato. [...] magnesium, fish oil, or vitamin B6. Take lzct-xrv-wbeyvic and prescription medicines only as told by [...] Casseroles. Pizza. Lasagna. Frozen meals. Potato chips. [place] Islander fries. The items listed above may not [...] provider. Document Revised: 08/28/2022 Document Reviewed: 08/28/2022 [employer] Patient Education 2023 [employer] Follow Up Care 07/06/2024 09:27:26 With:Torsten DIAMOND, KT Jolley, URO Address: When: Unknown [facility] 01-11-2025 Note Patient Education Nephrology Dietary Guidelines to Help [...] to less than 1,500 mg a day. ??? Choose foods with calcium for each meal and snack. Try to eat about 300 mg of calcium at each meal. Foods that contain 200?500 mg of calcium a serving include: ? 8 oz (237 mL) of milk, pswqnsk-ftullpizgptk-wjehg milk, and calcium-fortifiedfruit juice. Calcium-fortified means that [...] ??? When shopping for convenience foods, choose: ? Whole pieces of fruit. ? Pre-made salads with dressing on the side. ? Low-fat fruit and yogurt smoothies. ??? Avoid [...] to add their own salt to taste. ??? Use vegetable protein, such as beans, textured vegetable protein (TVP), or tofu, instead of meat in pasta, casseroles, and soups. Meal planning ??? Eat less salt, if told by your dietitian. To do this: ? Avoid eating processed or pre-made food. ? Avoid eating fast food. ??? Eat less [...] Spinach (cooked), rhubarb, beets, sweet potatoes, and Romanian chard. ? Peanuts. ? Potato chips, burkinan fries, and baked potatoes with skin on. ? Nuts and nut products. ? Chocolate. ??? If you regularly take a diuretic medicine, make sure to eat at least 1 or 2 servings of fruits or vegetables that are high in potassium each day. These include: ? Avocado. ? Banana. ? Sanibel, prune, carrot, or tomato juice. ? Baked potato. ? Cabbage. ? Beans and split peas. Lifestyle ??? Drink enough fluid to keep your urine pale yellow. This is the most important thing you can do. Spread your fluid intake throughout the day. ??? If you drink alcohol: ? Limit how [...] fish oil, or vitamin B6. ??? Take rqrp-fso-euevrrr and prescription medicines only as told by your health (more content not included)... [facility] 07-06-2024 Hospital Discharg e instructions Patient Education 07/06/2024 09:26:19 Dietary Guidelines to Help Prevent Kidney Stones [...] include: ?8 oz (237 mL) of milk, abiivkl-genrqpkbuatb-fmeaz milk, and calcium-fortifiedfruit juice. Calcium-fortified means that [...] ?Spinach (cooked), rhubarb, beets, sweet potatoes, and Romanian chard. ?Peanuts. ?Potato chips, burkinan fries, and baked potatoes with skin on. ?Nuts and nut products. ?Chocolate. If you regularly take a diuretic medicine, make sure to eat at least 1 or 2 servings of fruits or vegetables that are high in potassium each day. These include: ?Avocado. ?Banana. ?Sanibel, prune, carrot, or tomato juice. ?Baked potato. [...] magnesium, fish oil, or vitamin B6. Take ngdh-cif-edkskhs and prescription medicines only as told by [...] Casseroles. Pizza. Lasagna. Frozen meals. Potato chips. [place] Islander fries. The items listed above may not [...] provider. Document Revised: 08/28/2022 Document Reviewed: 08/28/2022 [employer] Patient Education 2023 [employer] Follow Up Care 03/09/2024 10:16:47 With:Torsten DIAMOND, KT Jolley, URO Address: When: Unknown [facility] 07-06-2024 Note Patient Education Nephrology Dietary Guidelines to Help [...] to less than 1,500 mg a day. ??? Choose foods with calcium for each meal and snack. Try to eat about 300 mg of calcium at each meal. Foods that contain 200?500 mg of calcium a serving include: ? 8 oz (237 mL) of milk, jafsytc-mdvhmxsluytk-diiap milk, and calcium-fortifiedfruit juice. Calcium-fortified means that [...] ??? When shopping for convenience foods, choose: ? Whole pieces of fruit. ? Pre-made salads with dressing on the side. ? Low-fat fruit and yogurt smoothies. ??? Avoid [...] to add their own salt to taste. ??? Use vegetable protein, such as beans, textured vegetable protein (TVP), or tofu, instead of meat in pasta, casseroles, and soups. Meal planning ??? Eat less salt, if told by your dietitian. To do this: ? Avoid eating processed or pre-made food. ? Avoid eating fast food. ??? Eat less [...] Spinach (cooked), rhubarb, beets, sweet potatoes, and Romanian chard. ? Peanuts. ? Potato chips, burkinan fries, and baked potatoes with skin on. ? Nuts and nut products. ? Chocolate. ??? If you regularly take a diuretic medicine, make sure to eat at least 1 or 2 servings of fruits or vegetables that are high in potassium each day. These include: ? Avocado. ? Banana. ? Sanibel, prune, carrot, or tomato juice. ? Baked potato. ? Cabbage. ? Beans and split peas. Lifestyle ??? Drink enough fluid to keep your urine pale yellow. This is the most important thing you can do. Spread your fluid intake throughout the day. ??? If you drink alcohol: ? Limit how [...] fish oil, or vitamin B6. ??? Take txiz-hxe-lnxkaoe and prescription medicines only as told by your health (more content not included)... [facility] 03-17-2024 History of Presen t illness Narrative Post op right TKA annual visit: The patient is seen and evaluated for annual total knee arthroplasty visit. Did well with the hospital stay. No anesthesia problems reported. Happy with the care provided by staff, physical therapy and our office. Pain is appropriately controlled. Denies chest pain or shortness of breath or palpitations. Continues to be consistent and diligent with home exercise program as well as physical therapy modalities. Physical therapy reports are reviewed. Physical Exam: The total knee hip is clean, dry and intact. Mild swelling as expected. Has a stable arc of motion without mechanical symptoms. No instability of the prosthesis. No rash, infection or DVT. The calf is supple. Gait is assisted with stiffness with mild antalgic component. Lost large volume of weight with her bariatric surgery. Image Results: Xrays taken in the office today saved to the permanent record, AP, sunrise and lateral weightbearing films, show stable position and alignment of the right TKA prosthesis. No sign of loosening, fracture or infection. Mild to medium left knee OA. Assessment: S/P right total knee arthroplasty-annual post-operative visit Treatment Plan: The nature of the findings were discussed at length. Continuance of regular exercise, weight management and fall precautions reviewed. retirement antibiotic prophylaxis for dental or invasive work were reviewed. Numerous questions were answered. Follow-up in 1 year for repeat xray and exam, sooner if concerned. The patient is discharged in stable condition. documented in this encounter [facility] 03-09-2024 Hospital Discharg e instructions Patient Education 03/09/2024 10:10:18 Hydronephrosis Hydronephrosis Hydronephrosis is the swelling of one or both kidneys due to a blockage that stops urine from flowing out of the body. Kidneys filter waste from the blood and produce urine. This condition can lead to kidney failure and may become life-threatening if not treated promptly. What are the causes? In infants and children, common causes include problems that occur when a baby is developing in the womb. These can include problems in the kidneys or in the tubes that drain urine into the bladder (ureters). In adults, common causes include: Kidney stones. . A tumor or cyst in the abdomen or pelvis. An enlarged prostate gland. Other causes include: Bladder infection. Scar tissue from a previous surgery or injury. A blood clot. Cancer of the prostate, bladder, uterus, ovary, or colon. What are the signs or symptoms? Symptoms of this condition include: Pain or discomfort in your side (flank) or abdomen. Swelling in your abdomen. Nausea and vomiting. Fever. Pain when passing urine. Feelings of urgency when you need to urinate. Urinating more often than normal. In some cases, you may not have any symptoms. How is this diagnosed? This condition may be diagnosed based on: Your symptoms and medical history. A physical exam. Blood and urine tests. Imaging tests, such as an ultrasound, CT scan, or MRI. A procedure to look at your urinary tract and bladder by inserting a scope into the urethra (cystoscopy). How is this treated? Treatment for this condition depends on where the blockage is, how long it has been there, and what caused it. The goal of treatment is to remove the blockage. Treatment may include: Antibiotic medicines to treat or prevent infection. A procedure to place a small, thin tube (stent) into a blocked ureter. The stent will keep the ureter open so that urine can drain through it. A nonsurgical procedure that crushes kidney stones with shock waves (extracorporeal shock wave lithotripsy). If kidney failure occurs, treatment may include dialysis or a kidney transplant. Follow these instructions at home: Take zaff-ltb-epmknav and prescription medicines only as told by your health care provider. If you were prescribed an antibiotic medicine, take it exactly as told by your health care provider. Do not stop taking the antibiotic even if you start to feel better. Rest and return to your normal activities as told by your health care provider. Ask your health care provider what activities are safe for you. Drink enough fluid to keep your urine pale yellow. Keep all follow-up visits. This is important. Contact a health care provider if: You continue to have symptoms after treatment. You develop new symptoms. Your urine becomes cloudy or bloody. You have a fever. Get help right away if: You have severe flank or abdominal pain. You cannot drink fluids without vomiting. Summary Hydronephrosis is the swelling of one or both kidneys due to a blockage that stops urine from flowing out of the body. Hydronephrosis can lead to kidney failure and may become life-threatening if not treated promptly. The goal of treatment is to remove the blockage. It may include a procedure to insert a stent into a blocked ureter, a procedure to break up kidney stones, or taking antibiotic medicines. Follow your health care provider's instructions for taking care of yourself at home, including instructions about drinking fluids, taking medicines, and limiting activities. This information is not intended to replace advice given to you by your health care provider. Make sure you discuss any questions you have with your health care provider. Document Revised: 09/04/2020 Document Reviewed: 09/04/2020 [employer] Patient Education 2023 [employer] 03/09/2024 10:06:55 Dietary Guidelines to Help Prevent Kidney Stones [...] include: ?8 oz (237 mL) of milk, dawecbj-wqzdhwksoiob-ooegv milk, and calcium-fortifiedfruit juice. Calcium-fortified means that [...] ?Spinach (cooked), rhubarb, beets, sweet potatoes, and Romanian chard. ?Peanuts. ?Potato chips, burkinan fries, and baked potatoes with skin on. ?Nuts and nut products. ?Chocolate. If you regularly take a diuretic medicine, make sure to eat at least 1 or 2 servings of fruits or vegetables that are high in potassium each day. These include: ?Avocado. ?Banana. ?Sanibel, prune, carrot, or tomato juice. ?Baked potato. [...] magnesium, fish oil, or vitamin B6. Take fanz-irv-zlmnnzp and prescription medicines only as told by [...] Casseroles. Pizza. Lasagna. Frozen meals. Potato chips. [place] Islander fries. The items listed above may not [...] provider. Document Revised: 08/28/2022 Document Reviewed: 08/28/2022 [employer] Patient Education 2023 [employer] Follow Up Care 01/14/2024 13:33:50 With:Torsten DIAMOND, Romi Sinclair, URL, [facility] Address: [address] [place] [address] [phone] When: Unknown [facility] 03-09-2024 Note Patient Education Nephrology Dietary Guidelines to Help [...] ? 8 oz (237 mL) of milk, vbsmnis-wagqofpihfls-fadgl milk, and calcium-fortifiedfruit juice. Calcium-fortified means that [...] Spinach (cooked), rhubarb, beets, sweet potatoes, and Romanian chard. ? Peanuts. ? Potato chips, burkinan fries, and baked potatoes with skin on. ? Nuts and nut products. ? Chocolate. ? If you regularly take a diuretic medicine, make sure to eat at least 1 or 2 servings of fruits or vegetables that are high in potassium each day. These include: ? Avocado. ? Banana. ? Sanibel, prune, carrot, or tomato juice. ? Baked [...] fish oil, or vitamin B6. ? Take qout-diw-ycxyfim and prescription medicines only as told by your health care provider. These include suppleme (more content not included)... [facility] 2023 Hospital Discharg e instructions Patient Education [...] including vitamins, herbs, eye drops, creams, and mgdo-jza-zailfln medicines. Any problems you or family members [...] provider tells you to take them. ?Taking vvgy-uur-bmfwgxa medicines, vitamins, herbs, and supplements. Eating and [...] provider. Document Revised: 09/24/2022 Document Reviewed: 01/20/2022 [employer] Patient Education 2022 [employer] 2023 09:55:50 Laser Therapy for Kidney Stones, [...] Follow these instructions at home: Medicines Take huhg-hfe-nudinuy and prescription medicines only as told by [...] prevent or treat constipation, such as: ?Take pjbb-xsq-fgpsdva or prescription medicines. ?Eat foods that are [...] provider. Document Revised: 09/24/2022 Document Reviewed: 01/20/2022 [employer] Patient Education 2022 [employer] Follow Up Care 06/10/2023 09:53:36 With:Torsten DIAMOND, KT Jolley, [facility] Address: [address] [place] [address] [phone] When: Unknown [facility] 2023 Note Patient Education Nephrology Laser Therapy [...] including vitamins, herbs, eye drops, creams, and ukdz-vrf-ejcocxm medicines. ? Any problems you or family [...] tells you to take them. ? Taking yony-qui-bqzcldp medicines, vitamins, herbs, and supplements. Eating and [...] into your kidney (more content not included)... [facility] 06-10-2023 Hospital Discharg e instructions Patient [...] include: ?8 oz (237 mL) of milk, oaebqtb-omoejtjkwtqv-vmytk milk, and calcium-fortifiedfruit juice. Calcium-fortified means that [...] ?Spinach (cooked), rhubarb, beets, sweet potatoes, and Romanian chard. ?Peanuts. ?Potato chips, burkinan fries, and baked potatoes with skin on. ?Nuts and nut products. ?Chocolate. If you regularly take a diuretic medicine, make sure to eat at least 1 or 2 servings of fruits or vegetables that are high in potassium each day. These include: ?Avocado. ?Banana. ?Sanibel, prune, carrot, or tomato juice. ?Baked potato. [...] magnesium, fish oil, or vitamin B6. Take qsen-fsa-bpreawt and prescription medicines only as told by [...] Casseroles. Pizza. Lasagna. Frozen meals. Potato chips. [place] Islander fries. The items listed above may not [...] provider. Document Revised: 08/28/2022 Document Reviewed: 08/28/2022 [employer] Patient Education 2022 [employer] Follow Up Care 12/03/2022 08:49:17 With:Torsten DIAMOND, KT Jolley, [facility] Address: [address], [place] [address]- [phone] When: Unknown Comments:6 mos deyvi/ NEAL and OSCAR [facility] 09-04-2022 Hospital Discharg e instructions Patient Education 09/04/2022 09:31:21 Kidney Stones, Lvyd-sb-Xrvp Kidney Stones Kidney stones are rock-like masses [...] Follow these instructions at home: Medicines Take wpop-qrb-dcixemm and prescription medicines only as told by [...] Document Reviewed: 10/04/2019 Elsevier Patient Education 2019 [employer] Follow Up Care 08/01/2022 14:22:05 With:Torsten DIAMOND, KT Jolley, URO Address: When: Unknown [facility] 07-02-2022 Hospital Discharg e instructions Patient [...] include: ?Spinach. ?Rhubarb. ?Beets. ?Potato chips and burkinan fries. ?Nuts. If you regularly take a diuretic medicine, make sure to eat at least 1 2 fruits or vegetables high in potassium each day. These include: ?Avocado. ?Banana. ?Sanibel, prune, carrot, or tomato juice. ?Baked potato. [...] Casseroles. Pizza. Lasagna. Frozen meals. Potato chips. [place] Islander fries. Summary You can reduce your risk [...] 09/12/2011 Document Revised: 09/07/2019 Document Reviewed: 04/28/2017 [employer] Patient Education 2020 [employer] Follow Up Care 06/13/2022 11:44:22 With:Torsten DIAMOND, KT Jolley, U[facility] Address: When: Unknown [facility] 06-13-2022 Hospital Discharg e instructions [...] include: ?Spinach. ?Rhubarb. ?Beets. ?Potato chips and burkinan fries. ?Nuts. If you regularly take a diuretic medicine, make sure to eat at least 1 2 fruits or vegetables high in potassium each day. These include: ?Avocado. ?Banana. ?Sanibel, prune, carrot, or tomato juice. ?Baked potato. [...] Casseroles. Pizza. Lasagna. Frozen meals. Potato chips. [place] Islander fries. Summary You can reduce your risk [...] 09/12/2011 Document Revised: 09/07/2019 Document Reviewed: 04/28/2017 [employer] Patient Education 2020 [employer] Follow Up Care 05/29/2022 15:18:35 With:Torsten DIAMOND, KT Jolley, [facility] Address: When: Unknown [facility] 03-24-2022 Hospital Discharg e instructions Patient [...] as possible. If the spirometer includes a financial coach indicator, use this to guide you [...] 09/28/2007 Document Revised: 06/10/2018 Document Reviewed: 03/31/2018 [employer] Patient Education 2020 [employer] 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 It is therefore advised not to drive until after your first office visit following surgery FOLLOW-UP OFFICE VISIT: Suhas Sterling, DO [facility] [address] [place] [id number] [phone] Reviewed: 09-06 Follow Up Care 02/13/2022 09:46:16 With:Suhas Sterling Address: [address] [place] [id number] [facility] (1) When: Unknown Comments:Keep scheduled appointment [facility] 03-24-2022 Evaluation + Plan note Extrac mulu from: Title:Post-anesthesia - General Author:Ashvin Gipson DO Date:03/24/22 Plan Transfer/ Discharge: Condition stable. Extracted from: Title:Pre-anesthesia - Adult Author:Ashvin Bartlett Jr., DO Date:03/24/22 Plan [place] [employer] (ASA) physical status classification: Class II. Anesthetic Preoperative Plan Anesthesia: General. , Regional Adductor canal block. Anesthetic plan, risks, benefits, and alternatives discussed with the patient and/or family. Patient verbalized understanding. Adverse reactions, complications, and alternatives discujssed. Consent signed and on chart.. [facility] Future App[facility]ments Appointment Date:07/02/2022 09:30:00 AM Scheduled Provider:Romi Sarmiento MD Location:[facility] Appointment Type:URO Office Visit [facility] Evaluation + Plan note Future Appointments Appointment Date:10/20/2022 03:30:00 PM Scheduled Provider:Romi Sarmiento MD Location:[facility] Appointment Type:URO Video Visit Diagnostic Tests Pending * PTH Intact 09/04/22 * Uric Acid 09/04/22 [facility] Evaluation + Plan note Future Appointments Appointment Date:12/03/2022 08:30:00 AM Scheduled Provider:Romi Sarmiento MD Location:[facility] Appointment Type:URO Office Visit Diagnostic Tests Pending * PAP [id number] w/ HPV and Genotype rflx 10/24/22 [facility] Future Appointments Appointment Date:2023 09:00:00 AM Scheduled Provider:Romi Sarmiento MD Location:[facility] Appointment Type:URO Office Visit [facility] Evaluation + Plan note Future Appointments Appointment Date:2023 09:00:00 AM Scheduled Provider:Romi Sarmiento MD Location:[facility] Appointment Type:URO Office Visit Diagnostic Tests Pending * PAP [id number] w/ HPV and Genotype rflx 10/27/23 [facility] Future App[facility]ments Appointment Date:07/06/2024 08:45:00 AM Scheduled Provider:Romi Sarmiento MD Location:[facility] Appointment Type:URO Office Visit Diagnostic Tests Pending * Basic Metabolic Panel 03/09/24 [facility] evaluation + Plan note Future Appointments Appointment Date:01/04/2025 08:45:00 AM Scheduled Provider:Romi Sarmiento MD Location:[facility] Appointment Type:URO Office Visit [facility] evaluation + Plan note Future Appointments Appointment Date:01/11/2025 08:15:00 AM Scheduled Provider:Romi Sarmiento MD Location:[facility] Appointment Type:URO Office Visit Diagnostic Tests Pending * PAP [id number] w/ HPV and Genotype rflx 11/28/24 Future Scheduled Tests Radiology* XR Abdomen 1 View 11/28/24 * US Renal 12/12/24 [facility] Evaluation + Plan note Future Appointments Appointment Date:01/17/2026 08:15:00 AM Scheduled Provider:Romi Sarmiento MD Location:[facility] Appointment Type:URO Office Visit Future Scheduled Tests Radiology* XR Abdomen 1 View 12/30/25 * US Renal 12/30/25 [facility] evaluation note* Diagnosis History of total right knee replacement- Primary [facility] N[facility] No data available for this section [facility] No data available for this section [facility] No data available for this section [facility] Assessments No Assessments Information Available Summary [...] and content) DATE CREATED AUTHOR 02/21/2021 [facility] DATE CREATED AUTHOR AUTHOR'S ORGANIZ ATION 09/14/2022 [facility] pital DATE CREATED AUTHOR AUTHOR'S ORGANIZ ATION 03/19/2024 [facility] dical [facility] EPIC DATE CREATED AUTHOR AUTHOR'S ORGANIZ ATION 07/03/2024 [facility] DATE CREATED AUTHOR AUTHOR'S ORGANIZ ATION 07/13/2024 [facility] DATE CREATED AUTHOR AUTHOR'S ORGANIZ ATION 01/12/2025 [facility] Patient Care team informatio n (unrecognized section and content) 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 [employer] [facility]. provides no warranty or guarantee of the accuracy or completeness of information in this document.
== END 2025-01-13 10:16 | disposition home or self-care (01) ==
LOC: MAMMO 10:16
PROVIDERS: PCP Nurse Practitioner; Visit Provider Nurse Practitioner
DX: Z12.31 Encounter for screening mammogram for malignant neoplasm of breast (principal); Z80.0 Family history of malignant neoplasm of digestive organs; Z80.42 Family history of malignant neoplasm of prostate
CPT/HCPCS: 77063; 77067